=== PATIENT | female | born 1945 | race Caucasian/White ===

== ENCOUNTER 2016-03-01 13:55 | Outpatient (RCR) | payer MEDICARE ==
--- OUTSIDE RECORDS SUMMARY | 2016-01-19 13:43 | XMS REPORT | Continuity of Care Document ---
Author Author [facility] Organization [facility] Address Unknown Phone Unavailable Care Team Providers Care Java Developer Architect Name Role Phone Ace Roblero PCP [phone] Source Comments Some departments are not documenting in the electronic medical record. If you do not see the information that you expected, contact Release of Information in the Health Information Management department at [phone] for further assistance in locating additional records.[facility] Active Allergies and Adverse Reactions Allergen Noted Date Severity Reactions Comments Celebrex 10/31/2012 SEE COMMENTS Necrosis of kidneys Naprosyn 07/17/2012 SEE COMMENTS Necrosis of Kidneys Penicillin G 07/17/2012 RASH Current Medications Prescription Sig. Disp. Refills Start End Date Status Date pioglitazone (ACTOS) 45 Take 30 mg by mouth Active mg tablet daily. olmesartan(+) (BENICAR) Take 40 mg by mouth Active 40 mg tablet daily. fluticasone-salmeterol Inhale 1 Puff by mouth Active (ADVAIR DISKUS) 250-50 every 12 hours. Once in mcg inhalation disk am and once HS atorvastatin (LIPITOR) 40 Take 40 mg by mouth Active mg tablet daily. montelukast (SINGULAIR) Take 10 mg by mouth at Active 10 mg tablet bedtime daily. acetaminophen (TYLENOL) Take 1,000 mg by mouth Active 500 mg tablet every 6 hours as needed. traMADol (ULTRAM) 50 mg Take 50 mg by mouth every Active tablet 6 hours as needed. 50-100 mg ketoconazole (NIZORAL) 2 Apply to affected area 15 g 3 05/15/19 Active % topical cream twice daily. 14 ketoconazole (NIZORAL) 2 Apply to affected area 120 mL 3 05/15/19 Active % topical shampoo daily. 14 labetalol (NORMODYNE) 100 Take 100 mg by mouth Active mg tablet twice daily. metformin-ER(+) Take 1,000 mg by mouth Active (FORTAMET) 1,000 mg daily with dinner. tablet timolol XE(+) Apply 1 drop BID to edges 1 Bottle 3 01/02/20 Active (TIMOPTIC-XR) 0.5 % of wound 14 ophthalmic gel Active Problems Problem Noted Date History of melanoma 10/31/2012 Social History Tobacco Use Types Packs/Day Years Used Date Former Smoker Alcohol Use Drinks/Week oz/Week Comments No Last Filed Vital Signs Vital Sign Reading Time Taken Blood Pressure 160/62 07/17/2012 12:58 PM CDT Pulse - - Temperature - - Respiratory Rate 18 10/31/2012 1:00 PM CDT Height 1.651 m (5' 5") 01/01/2014 11:22 AM CDT Weight 146.965 kg (324 lb) 01/01/2014 11:22 AM CDT Body Mass Index 53.92 01/01/2014 11:22 AM CDT Oxygen Saturation - - Plan of Care Health Maintenance Due Date Last Done Comments Physical (Comprehensive) 1950 Exam Pertussis Vaccine 1954 Tetanus Vaccine 02/29/1960 Breast Cancer Screening 1983 Colorectal Cancer 1993 Screening Shingles Vaccine 2003 Osteoporosis Screening 02/29/2008 Prevnar/Pneumovax (#1) 02/29/2008 Influenza Vaccine 11/24/2015 Results from Last 3 Months Not on file
[2016-01-19 15:37] LABS: BASOPHILS % (AUTO) 0 % (0-10); EOSINOPHILS # (AUTO) 0.2 10^3/uL (0.0-0.3); EOSINOPHILS % (AUTO) 3 % (0-10); LYMPHOCYTES # (AUTO) 0.8 X 10^3 (1.0-4.0); LYMPHOCYTES % (AUTO) 15 % (12-44); MEAN CORPUSCULAR HEMOGLOBIN 28 PG (25-34); MEAN CORPUSCULAR HGB CONC 31 G/DL (32-36); MEAN CORPUSCULAR VOLUME 90 FL (80-99); MEAN PLATELET VOLUME 8.6 FL (7.4-10.4); MONOCYTES # (AUTO) 0.3 X 10^3 (0.0-1.0); MONOCYTES % (AUTO) 6 % (0-12); NEUTROPHILS % (AUTO) 76 % (42-75); PLATELET COUNT 184 10^3/uL (130-400); RED BLOOD COUNT 3.24 10^6/uL (4.35-5.85); RED CELL DISTRIBUTION WIDTH 14.8 % (10.0-14.5); RETICULOCYTE % 0.62 % (0.50-2.40); WHITE BLOOD COUNT 5.3 10^3/uL (4.3-11.0)
[2016-01-19 16:20] LABS: ALANINE AMINOTRANSFERASE 15 U/L (0-55); ANION GAP 4 MMOL/L (5-14); ASPARTATE AMINO TRANSFERASE 15 U/L (5-34); BILIRUBIN,TOTAL 0.4 MG/DL (0.1-1.0); BLOOD UREA NITROGEN 21 MG/DL (7-18); BUN/CREATININE RATIO 26; CALCIUM 8.7 MG/DL (8.5-10.1); CARBON DIOXIDE 26 MMOL/L (21-32); CHLORIDE 107 MMOL/L (98-107); CREATININE SERUM 0.82 MG/DL (0.60-1.30); GFR ESTIMATED > 60; GLUCOSE 107 MG/DL (70-105); LACTATE DEHYDROGENASE 219 U/L (125-220); POTASSIUM 4.4 MMOL/L (3.6-5.0); SODIUM 137 MMOL/L (135-145); TOTAL PROTEIN 6.4 G/DL (6.4-8.2)
[2016-01-19 16:41] LABS: THYROID STIMULATING HORMONE 1.71 UIU/ML (0.35-4.94)
[2016-01-19 17:04] LABS: PEP REPORT SEE PATH REPORT
[2016-01-19 17:14] LABS: %SAT TOTAL IRON BINDING CAPIC 24 % (15-50); TIBC 422 ug/dL (280-380)
[2016-01-20 06:51] LABS: FERRITIN 23 ng/mL (15-150)
[2016-01-20 06:52] LABS: UIBC 319 ug/dL (55-450)
[2016-01-21 07:29] LABS: LIGHT CHAIN KAPPA SERUM QUANT 22.42 mg/L (3.30-19.40); LIGHT CHAIN LAMBDA SERUM QUANT 11.77 mg/L (5.71-26.30)
[2016-01-25 06:41] LABS: CLIN PATHOLOGY REPORT FOOTNOTE
[2016-01-25 06:42] LABS: SERUM PROTEIN ELEC DETAIL L-16-0013798
[2016-02-24 12:34] LABS: BASOPHILS % (AUTO) 0 % (0-10); EOSINOPHILS # (AUTO) 0.2 10^3/uL (0.0-0.3); EOSINOPHILS % (AUTO) 4 % (0-10); LYMPHOCYTES # (AUTO) 0.8 X 10^3 (1.0-4.0); LYMPHOCYTES % (AUTO) 18 % (12-44); MEAN CORPUSCULAR HEMOGLOBIN 30 PG (25-34); MEAN CORPUSCULAR HGB CONC 32 G/DL (32-36); MEAN CORPUSCULAR VOLUME 93 FL (80-99); MONOCYTES # (AUTO) 0.4 X 10^3 (0.0-1.0); MONOCYTES % (AUTO) 8 % (0-12); NEUTROPHILS # (AUTO) 3.1 X 10^3 (1.8-7.8); NEUTROPHILS % (AUTO) 69 % (42-75); PLATELET COUNT 199 10^3/uL (130-400); RED BLOOD COUNT 3.35 10^6/uL (4.35-5.85); RED CELL DISTRIBUTION WIDTH 17.1 % (10.0-14.5); RETICULOCYTE % 1.55 % (0.50-2.40); WHITE BLOOD COUNT 4.5 10^3/uL (4.3-11.0)
[~2016-03-01 13:55] MED LIST: FERRIC CARBOXYMALTOSE (CANCER) 750 MG in NS (IVPB) CANCER CENTER 250 ML IV SCH
== END 2016-04-18 | disposition home or self-care (01) ==
LOC: ONC 13:55
PROVIDERS: ATTEND Internal Medicine Hematology & Oncology
DX: D64.9 Anemia, unspecified (principal); E11.9 Type 2 diabetes mellitus without complications
CPT/HCPCS: 36591; 80053; 82728; 83540; 83615; 83883; 84155; 84165; 84443; 85025; 85045; 96365; 96374; 96523; 99213; 99214

== ENCOUNTER 2016-07-31 13:57 | Outpatient (RCR) | payer MEDICARE ==
[2016-05-24 13:16] LABS: BASOPHILS % (AUTO) 0 % (0-10); EOSINOPHILS % (AUTO) 1 % (0-10); LYMPHOCYTES # (AUTO) 0.8 X 10^3 (1.0-4.0); LYMPHOCYTES % (AUTO) 19 % (12-44); MEAN CORPUSCULAR HEMOGLOBIN 31 PG (25-34); MEAN CORPUSCULAR HGB CONC 32 G/DL (32-36); MEAN CORPUSCULAR VOLUME 96 FL (80-99); MEAN PLATELET VOLUME 8.2 FL (7.4-10.4); MONOCYTES # (AUTO) 0.3 X 10^3 (0.0-1.0); MONOCYTES % (AUTO) 8 % (0-12); NEUTROPHILS # (AUTO) 3.1 X 10^3 (1.8-7.8); NEUTROPHILS % (AUTO) 73 % (42-75); PLATELET COUNT 177 10^3/uL (130-400); RED BLOOD COUNT 3.31 10^6/uL (4.35-5.85); RED CELL DISTRIBUTION WIDTH 12.8 % (10.0-14.5); WHITE BLOOD COUNT 4.3 10^3/uL (4.3-11.0)
[2016-05-24 13:55] LABS: ALANINE AMINOTRANSFERASE 9 U/L (0-55); ALBUMIN 4.1 G/DL (3.2-4.5); ANION GAP 11 MMOL/L (5-14); ASPARTATE AMINO TRANSFERASE 15 U/L (5-34); BILIRUBIN,TOTAL 0.6 MG/DL (0.1-1.0); BLOOD UREA NITROGEN 24 MG/DL (7-18); BUN/CREATININE RATIO 26; CALCIUM 9.1 MG/DL (8.5-10.1); CARBON DIOXIDE 21 MMOL/L (21-32); CHLORIDE 111 MMOL/L (98-107); CREATININE SERUM 0.91 MG/DL (0.60-1.30); GFR ESTIMATED > 60; GLUCOSE 117 MG/DL (70-105); POTASSIUM 4.6 MMOL/L (3.6-5.0); SODIUM 143 MMOL/L (135-145); TOTAL PROTEIN 6.5 G/DL (6.4-8.2)
--- OUTSIDE RECORDS SUMMARY | 2016-05-24 16:58 | XMS REPORT | Continuity of Care Document ---
Author Author [facility] Organization [facility] Address Unknown Phone Unavailable Care Team Providers Care Manager Psychology Name Role Phone Ace Roblero PCP [phone] Source Comments Some departments are not documenting in the electronic medical record. If you do not see the information that you expected, contact Release of Information in the Health Information Management department at [phone] for further assistance in locating additional records.[facility] Active Allergies and Adverse Reactions Allergen Noted [...]
[2016-05-25 05:35] LABS: LIGHT CHAIN KAPPA SERUM QUANT 23.93 mg/L (3.30-19.40); LIGHT CHAIN LAMBDA SERUM QUANT 12.31 mg/L (5.71-26.30)
[2016-05-25 08:03] LABS: FOLIC ACID 9.4 ng/mL (1.5-24.0)
[2016-08-01 13:57] LABS: HOMOCYSTEINE 16.2 umol/L (<=10.3)
[2016-08-09 09:59] LABS: METHYLMALONIC ACID 0.4 umol/L (0.00-0.40)
== END 2016-08-22 | disposition home or self-care (01) ==
LOC: ONC 13:57
PROVIDERS: ATTEND Internal Medicine Hematology & Oncology
DX: D64.9 Anemia, unspecified (principal); E11.9 Type 2 diabetes mellitus without complications
CPT/HCPCS: 36415; 80053; 82607; 82728; 82746; 83090; 83883; 83921; 85025; 99213

== ENCOUNTER → 2016-07-31 | Outpatient (CLI) | payer MEDICARE ==
[2016-07-31 15:17] LABS: ALBUMIN 4.3 G/DL (3.2-4.5); BILIRUBIN,TOTAL 0.7 MG/DL (0.1-1.0); CALCIUM 9.4 MG/DL (8.5-10.1); CREATININE SERUM 0.94 MG/DL (0.60-1.30); POTASSIUM 4.1 MMOL/L (3.6-5.0); TOTAL PROTEIN 6.7 G/DL (6.4-8.2)
[2016-08-01 08:39] LABS: VITAMIN D 25-HYDROXY (TOTAL) 27 ng/mL (30-100)
== END ==
LOC: LAB 14:28
PROVIDERS: ATTEND Internal Medicine
DX: E78.5 Hyperlipidemia, unspecified (principal); E11.9 Type 2 diabetes mellitus without complications; E55.9 Vitamin D deficiency, unspecified; Z11.59 Encounter for screening for other viral diseases
CPT/HCPCS: 36415; 80053; 80061; 82306; 83036; 86803

== ENCOUNTER 2016-11-20 14:02 | Outpatient (RCR) | payer MEDICARE ==
[2016-08-27 14:30] LABS: BASOPHILS % (AUTO) 0 % (0-10); EOSINOPHILS # (AUTO) 0.1 10^3/uL (0.0-0.3); EOSINOPHILS % (AUTO) 1 % (0-10); LYMPHOCYTES # (AUTO) 0.9 X 10^3 (1.0-4.0); LYMPHOCYTES % (AUTO) 24 % (12-44); MEAN CORPUSCULAR HEMOGLOBIN 31 PG (25-34); MEAN CORPUSCULAR HGB CONC 31 G/DL (32-36); MEAN CORPUSCULAR VOLUME 97 FL (80-99); MONOCYTES # (AUTO) 0.3 X 10^3 (0.0-1.0); MONOCYTES % (AUTO) 8 % (0-12); NEUTROPHILS # (AUTO) 2.4 X 10^3 (1.8-7.8); NEUTROPHILS % (AUTO) 66 % (42-75); PLATELET COUNT 173 10^3/uL (130-400); RED BLOOD COUNT 3.38 10^6/uL (4.35-5.85); RED CELL DISTRIBUTION WIDTH 12.8 % (10.0-14.5); RETICULOCYTE % 0.99 % (0.50-2.40); WHITE BLOOD COUNT 3.6 10^3/uL (4.3-11.0)
[2016-08-27 14:50] LABS: ALANINE AMINOTRANSFERASE 8 U/L (0-55); ALBUMIN 4.3 G/DL (3.2-4.5); ANION GAP 10 MMOL/L (5-14); ASPARTATE AMINO TRANSFERASE 12 U/L (5-34); BILIRUBIN,TOTAL 0.5 MG/DL (0.1-1.0); BLOOD UREA NITROGEN 20 MG/DL (7-18); BUN/CREATININE RATIO 25; CALCIUM 9.2 MG/DL (8.5-10.1); CARBON DIOXIDE 23 MMOL/L (21-32); CHLORIDE 109 MMOL/L (98-107); CREATININE SERUM 0.81 MG/DL (0.60-1.30); GFR ESTIMATED > 60; GLUCOSE 103 MG/DL (70-105); POTASSIUM 4.6 MMOL/L (3.6-5.0); SODIUM 142 MMOL/L (135-145); TOTAL PROTEIN 6.9 G/DL (6.4-8.2)
[2016-11-20 14:35] LABS: PEP REPORT SEE PATH REPORT
[2016-11-20 14:37] LABS: BASOPHILS % (AUTO) 0 % (0-10); EOSINOPHILS # (AUTO) 0.1 10^3/uL (0.0-0.3); EOSINOPHILS % (AUTO) 2 % (0-10); LYMPHOCYTES # (AUTO) 0.9 X 10^3 (1.0-4.0); LYMPHOCYTES % (AUTO) 19 % (12-44); MEAN CORPUSCULAR HEMOGLOBIN 30 PG (25-34); MEAN CORPUSCULAR HGB CONC 31 G/DL (32-36); MEAN CORPUSCULAR VOLUME 96 FL (80-99); MEAN PLATELET VOLUME 8.6 FL (7.4-10.4); MONOCYTES # (AUTO) 0.4 X 10^3 (0.0-1.0); MONOCYTES % (AUTO) 9 % (0-12); NEUTROPHILS # (AUTO) 3.2 X 10^3 (1.8-7.8); NEUTROPHILS % (AUTO) 70 % (42-75); PLATELET COUNT 189 10^3/uL (130-400); RED BLOOD COUNT 3.34 10^6/uL (4.35-5.85); RED CELL DISTRIBUTION WIDTH 12.6 % (10.0-14.5); WHITE BLOOD COUNT 4.5 10^3/uL (4.3-11.0)
[2016-11-20 15:05] LABS: ALANINE AMINOTRANSFERASE 7 U/L (0-55); ALBUMIN 4.1 GM/DL (3.2-4.5); ANION GAP 5 MMOL/L (5-14); ASPARTATE AMINO TRANSFERASE 14 U/L (5-34); BILIRUBIN,TOTAL 0.5 MG/DL (0.1-1.0); BLOOD UREA NITROGEN 21 MG/DL (7-18); BUN/CREATININE RATIO 25; CALCIUM 9.2 MG/DL (8.5-10.1); CARBON DIOXIDE 28 MMOL/L (21-32); CHLORIDE 106 MMOL/L (98-107); CREATININE SERUM 0.85 MG/DL (0.60-1.30); GFR ESTIMATED > 60; GLUCOSE 94 MG/DL (70-105); SODIUM 139 MMOL/L (135-145); TOTAL PROTEIN 6.7 GM/DL (6.4-8.2)
[2016-11-21 03:32] LABS: LIGHT CHAIN KAPPA SERUM QUANT 25.02 mg/L (3.30-19.40); LIGHT CHAIN LAMBDA SERUM QUANT 13.66 mg/L (5.71-26.30)
[2016-11-21 06:36] LABS: HOMOCYSTEINE 16.3 umol/L (<=10.3)
[2016-11-22 11:14] LABS: CLIN PATHOLOGY REPORT FOOTNOTE; SERUM PROTEIN ELEC DETAIL L-17-0011398
== END 2016-11-23 15:53 | disposition home or self-care (01) ==
LOC: ONC 14:02
PROVIDERS: ATTEND Internal Medicine Hematology & Oncology
DX: D50.9 Iron deficiency anemia, unspecified (principal); Z85.820 Personal history of malignant melanoma of skin; E11.9 Type 2 diabetes mellitus without complications; I10 Essential (primary) hypertension; E78.2 Mixed hyperlipidemia; R60.0 Localized edema; Z82.49 Family history of ischemic heart disease and other diseases of the circulatory system; Z79.84 Long term (current) use of oral hypoglycemic drugs; Z79.899 Other long term (current) drug therapy
CPT/HCPCS: 36415; 80053; 82728; 83090; 83883; 84155; 84165; 85025; 85045; 99213

== ENCOUNTER → 2016-11-20 | Outpatient (CLI) | payer MEDICARE | LOC: LABNPT 14:25 | PROVIDERS: ATTEND Internal Medicine | DX: E11.9 Type 2 diabetes mellitus without complications (principal) | CPT/HCPCS: 83036 ==

== ENCOUNTER 2016-12-05 14:06 | Outpatient (RCR) | payer MEDICARE | END 2016-12-22 | disposition home or self-care (01) | LOC: ONC 14:06 | PROVIDERS: ATTEND Internal Medicine Hematology & Oncology | DX: E11.9 Type 2 diabetes mellitus without complications; Z79.84 Long term (current) use of oral hypoglycemic drugs; D50.9 Iron deficiency anemia, unspecified; R60.0 Localized edema; Z79.899 Other long term (current) drug therapy; Z82.49 Family history of ischemic heart disease and other diseases of the circulatory system; E78.2 Mixed hyperlipidemia; Z85.820 Personal history of malignant melanoma of skin; I10 Essential (primary) hypertension | CPT/HCPCS: 99213 ==

== ENCOUNTER → 2017-03-27 | Outpatient (CLI) | payer MEDICARE | LOC: LAB 13:01 | PROVIDERS: ATTEND Internal Medicine | DX: E11.9 Type 2 diabetes mellitus without complications (principal); I10 Essential (primary) hypertension | CPT/HCPCS: 36415; 83036 ==

== ENCOUNTER 2017-04-09 13:53 | Outpatient (RCR) | payer MEDICARE ==
[2017-03-27 10:11] LABS: BASOPHILS % (AUTO) 0 % (0-10); EOSINOPHILS # (AUTO) 0.1 10^3/uL (0.0-0.3); EOSINOPHILS % (AUTO) 2 % (0-10); HEMATOCRIT 30 % (35-52); HEMOGLOBIN 9.3 G/DL (11.5-16.0); LYMPHOCYTES % (AUTO) 21 % (12-44); MEAN CORPUSCULAR HEMOGLOBIN 31 PG (25-34); MEAN CORPUSCULAR HGB CONC 31 G/DL (32-36); MEAN CORPUSCULAR VOLUME 98 FL (80-99); MEAN PLATELET VOLUME 8.9 FL (7.4-10.4); MONOCYTES # (AUTO) 0.3 X 10^3 (0.0-1.0); MONOCYTES % (AUTO) 6 % (0-12); NEUTROPHILS # (AUTO) 3.4 X 10^3 (1.8-7.8); NEUTROPHILS % (AUTO) 71 % (42-75); PLATELET COUNT 197 10^3/uL (130-400); RED BLOOD COUNT 3.04 10^6/uL (4.35-5.85); WHITE BLOOD COUNT 4.8 10^3/uL (4.3-11.0)
[2017-03-27 10:35] LABS: ALANINE AMINOTRANSFERASE 8 U/L (0-55); ALBUMIN 4.2 GM/DL (3.2-4.5); ALKALINE PHOSPHATASE 65 U/L (40-136); BILIRUBIN,TOTAL 0.5 MG/DL (0.1-1.0); BUN/CREATININE RATIO 32; CALCIUM 9.3 MG/DL (8.5-10.1); CARBON DIOXIDE 23 MMOL/L (21-32); CHLORIDE 110 MMOL/L (98-107); CREATININE SERUM 0.87 MG/DL (0.60-1.30); GFR ESTIMATED > 60; GLUCOSE 104 MG/DL (70-105); POTASSIUM 4.7 MMOL/L (3.6-5.0); SODIUM 142 MMOL/L (135-145); TOTAL PROTEIN 6.9 GM/DL (6.4-8.2)
== END 2017-06-25 | disposition home or self-care (01) ==
LOC: ONC 13:53
PROVIDERS: ATTEND Internal Medicine Hematology & Oncology
DX: D50.9 Iron deficiency anemia, unspecified (principal); Z85.820 Personal history of malignant melanoma of skin; E11.9 Type 2 diabetes mellitus without complications; I10 Essential (primary) hypertension; E78.2 Mixed hyperlipidemia; R60.0 Localized edema; Z82.49 Family history of ischemic heart disease and other diseases of the circulatory system; Z79.84 Long term (current) use of oral hypoglycemic drugs; Z79.899 Other long term (current) drug therapy
CPT/HCPCS: 80053; 82728; 83883; 84155; 84165; 84443; 85025; 96365

== ENCOUNTER 2017-06-26 14:06 | Outpatient (RCR) | payer MEDICARE ==
[2017-06-26 14:46] LABS: ABSOLUTE RETIC # 49 10e9/L (24-90); BASOPHILS % (AUTO) 0 % (0-10); EOSINOPHILS # (AUTO) 0.1 10^3/uL (0.0-0.3); EOSINOPHILS % (AUTO) 2 % (0-10); HEMATOCRIT 27 % (35-52); HEMOGLOBIN 8.7 G/DL (11.5-16.0); LYMPHOCYTES # (AUTO) 0.9 X 10^3 (1.0-4.0); LYMPHOCYTES % (AUTO) 15 % (12-44); MEAN CORPUSCULAR HEMOGLOBIN 30 PG (25-34); MEAN CORPUSCULAR HGB CONC 32 G/DL (32-36); MEAN CORPUSCULAR VOLUME 95 FL (80-99); MEAN PLATELET VOLUME 8.4 FL (7.4-10.4); MONOCYTES # (AUTO) 0.5 X 10^3 (0.0-1.0); MONOCYTES % (AUTO) 8 % (0-12); NEUTROPHILS # (AUTO) 4.6 X 10^3 (1.8-7.8); NEUTROPHILS % (AUTO) 75 % (42-75); PLATELET COUNT 226 10^3/uL (130-400); RED BLOOD COUNT 2.88 10^6/uL (4.35-5.85); RED CELL DISTRIBUTION WIDTH 13.1 % (10.0-14.5); WHITE BLOOD COUNT 6.2 10^3/uL (4.3-11.0)
[2017-06-26 15:02] LABS: ALANINE AMINOTRANSFERASE 10 U/L (0-55); ALBUMIN 3.7 GM/DL (3.2-4.5); ALKALINE PHOSPHATASE 88 U/L (40-136); BILIRUBIN,TOTAL 0.4 MG/DL (0.1-1.0); BUN/CREATININE RATIO 12; CALCIUM 8.8 MG/DL (8.5-10.1); CARBON DIOXIDE 22 MMOL/L (21-32); CHLORIDE 107 MMOL/L (98-107); GFR ESTIMATED > 60; GLUCOSE 117 MG/DL (70-105); POTASSIUM 3.8 MMOL/L (3.6-5.0); SODIUM 139 MMOL/L (135-145); TOTAL PROTEIN 6.3 GM/DL (6.4-8.2)
== END 2017-07-03 09:37 | disposition home or self-care (01) ==
LOC: ONC 14:06
PROVIDERS: ATTEND Internal Medicine Hematology & Oncology
DX: D50.9 Iron deficiency anemia, unspecified (principal); Z85.820 Personal history of malignant melanoma of skin; E11.9 Type 2 diabetes mellitus without complications; I10 Essential (primary) hypertension; E78.2 Mixed hyperlipidemia; R60.0 Localized edema; Z82.49 Family history of ischemic heart disease and other diseases of the circulatory system; Z79.84 Long term (current) use of oral hypoglycemic drugs; Z79.899 Other long term (current) drug therapy
CPT/HCPCS: 36415; 80053; 82728; 83883; 84155; 84165; 85025; 85045

== ENCOUNTER 2017-09-24 13:11 | Outpatient (RCR) | payer MEDICARE ==
[2017-09-24 13:38] LABS: ABSOLUTE RETIC # 53 10e9/L (24-90); BASOPHILS % (AUTO) 0 % (0-10); EOSINOPHILS # (AUTO) 0.1 10^3/uL (0.0-0.3); EOSINOPHILS % (AUTO) 1 % (0-10); HEMATOCRIT 26 % (35-52); HEMOGLOBIN 8.1 G/DL (11.5-16.0); LYMPHOCYTES # (AUTO) 0.8 X 10^3 (1.0-4.0); LYMPHOCYTES % (AUTO) 10 % (12-44); MEAN CORPUSCULAR HEMOGLOBIN 28 PG (25-34); MEAN CORPUSCULAR HGB CONC 31 G/DL (32-36); MEAN CORPUSCULAR VOLUME 92 FL (80-99); MEAN PLATELET VOLUME 8.2 FL (7.4-10.4); MONOCYTES # (AUTO) 0.6 X 10^3 (0.0-1.0); MONOCYTES % (AUTO) 7 % (0-12); NEUTROPHILS # (AUTO) 6.7 X 10^3 (1.8-7.8); NEUTROPHILS % (AUTO) 83 % (42-75); PLATELET COUNT 315 10^3/uL (130-400); RED BLOOD COUNT 2.85 10^6/uL (4.35-5.85); RED CELL DISTRIBUTION WIDTH 14.5 % (10.0-14.5); RETICULOCYTE % 1.87 % (0.50-2.40); WHITE BLOOD COUNT 8.1 10^3/uL (4.3-11.0)
[2017-09-30 10:00] LABS: ALBUMIN 3.6 GM/DL (3.2-4.5); BILIRUBIN,TOTAL 0.3 MG/DL (0.1-1.0); CREATININE SERUM 1.16 MG/DL (0.60-1.30); TOTAL PROTEIN 6.7 GM/DL (6.4-8.2)
== END 2017-10-01 | disposition home or self-care (01) ==
LOC: ONC 13:11
PROVIDERS: ATTEND Internal Medicine Hematology & Oncology
DX: D50.9 Iron deficiency anemia, unspecified (principal); Z85.820 Personal history of malignant melanoma of skin; E11.9 Type 2 diabetes mellitus without complications; I10 Essential (primary) hypertension; E78.2 Mixed hyperlipidemia; R60.0 Localized edema; Z82.49 Family history of ischemic heart disease and other diseases of the circulatory system; Z79.84 Long term (current) use of oral hypoglycemic drugs; Z79.899 Other long term (current) drug therapy
CPT/HCPCS: 36415; 80053; 82728; 83883; 84155; 84165; 85025; 85045; 99213

== ENCOUNTER → 2017-10-09 | Outpatient (CLI) | payer MEDICARE | LOC: LAB 14:16 | PROVIDERS: ATTEND Internal Medicine | DX: E11.65 Type 2 diabetes mellitus with hyperglycemia (principal) | CPT/HCPCS: 36415; 83036 ==

== ENCOUNTER → 2017-10-17 | Outpatient (CLI) | payer MEDICARE | LOC: LAB 09:42 | PROVIDERS: ATTEND Internal Medicine | DX: Z53.9 Procedure and treatment not carried out, unspecified reason (principal) ==

== ENCOUNTER 2017-12-04 13:41 | Outpatient (RCR) | payer MEDICARE ==
[2017-10-09 13:45] LABS: BASOPHILS % (AUTO) 0 % (0-10); EOSINOPHILS % (AUTO) 1 % (0-10); HEMATOCRIT 26 % (35-52); HEMOGLOBIN 7.9 G/DL (11.5-16.0); LYMPHOCYTES # (AUTO) 0.7 X 10^3 (1.0-4.0); LYMPHOCYTES % (AUTO) 9 % (12-44); MEAN CORPUSCULAR HEMOGLOBIN 28 PG (25-34); MEAN CORPUSCULAR HGB CONC 31 G/DL (32-36); MEAN CORPUSCULAR VOLUME 92 FL (80-99); MEAN PLATELET VOLUME 8.2 FL (7.4-10.4); MONOCYTES # (AUTO) 0.6 X 10^3 (0.0-1.0); MONOCYTES % (AUTO) 8 % (0-12); NEUTROPHILS # (AUTO) 6.7 X 10^3 (1.8-7.8); NEUTROPHILS % (AUTO) 83 % (42-75); PLATELET COUNT 302 10^3/uL (130-400); RED BLOOD COUNT 2.79 10^6/uL (4.35-5.85); RED CELL DISTRIBUTION WIDTH 14.9 % (10.0-14.5); WHITE BLOOD COUNT 8.1 10^3/uL (4.3-11.0)
[2017-10-16 13:43] LABS: BASOPHILS % (AUTO) 0 % (0-10); EOSINOPHILS % (AUTO) 0 % (0-10); HEMATOCRIT 24 % (35-52); HEMOGLOBIN 7.4 G/DL (11.5-16.0); LYMPHOCYTES # (AUTO) 0.6 X 10^3 (1.0-4.0); LYMPHOCYTES % (AUTO) 7 % (12-44); MEAN CORPUSCULAR HEMOGLOBIN 29 PG (25-34); MEAN CORPUSCULAR HGB CONC 31 G/DL (32-36); MEAN CORPUSCULAR VOLUME 93 FL (80-99); MEAN PLATELET VOLUME 8.4 FL (7.4-10.4); MONOCYTES # (AUTO) 0.7 X 10^3 (0.0-1.0); MONOCYTES % (AUTO) 7 % (0-12); NEUTROPHILS # (AUTO) 8.5 X 10^3 (1.8-7.8); NEUTROPHILS % (AUTO) 86 % (42-75); PLATELET COUNT 243 10^3/uL (130-400); RED BLOOD COUNT 2.59 10^6/uL (4.35-5.85); RED CELL DISTRIBUTION WIDTH 15.5 % (10.0-14.5); WHITE BLOOD COUNT 9.9 10^3/uL (4.3-11.0)
[2017-10-16 13:53] LABS: RETICULOCYTE % 1.83 % (0.50-2.40)
[2017-10-16 13:54] LABS: RED BLOOD COUNT 2.59 10^6/uL (4.35-5.85)
[2017-10-23 13:33] LABS: RED BLOOD COUNT 2.73 10^6/uL (4.35-5.85); WHITE BLOOD COUNT 8.2 10^3/uL (4.3-11.0)
[2017-10-23 13:34] LABS: BASOPHILS % (AUTO) 0 % (0-10); EOSINOPHILS # (AUTO) 0.1 10^3/uL (0.0-0.3); EOSINOPHILS % (AUTO) 1 % (0-10); HEMATOCRIT 26 % (35-52); LYMPHOCYTES # (AUTO) 0.8 X 10^3 (1.0-4.0); LYMPHOCYTES % (AUTO) 10 % (12-44); MEAN CORPUSCULAR HEMOGLOBIN 29 PG (25-34); MEAN CORPUSCULAR HGB CONC 31 G/DL (32-36); MEAN CORPUSCULAR VOLUME 93 FL (80-99); MEAN PLATELET VOLUME 8.5 FL (7.4-10.4); MONOCYTES # (AUTO) 0.7 X 10^3 (0.0-1.0); MONOCYTES % (AUTO) 9 % (0-12); NEUTROPHILS # (AUTO) 6.6 X 10^3 (1.8-7.8); NEUTROPHILS % (AUTO) 80 % (42-75); PLATELET COUNT 306 10^3/uL (130-400); RED CELL DISTRIBUTION WIDTH 15.6 % (10.0-14.5)
[2017-10-31 13:41] LABS: BASOPHILS % (AUTO) 0 % (0-10); EOSINOPHILS # (AUTO) 0.1 10^3/uL (0.0-0.3); EOSINOPHILS % (AUTO) 1 % (0-10); HEMATOCRIT 25 % (35-52); HEMOGLOBIN 7.8 G/DL (11.5-16.0); LYMPHOCYTES # (AUTO) 0.8 X 10^3 (1.0-4.0); LYMPHOCYTES % (AUTO) 10 % (12-44); MEAN CORPUSCULAR HEMOGLOBIN 29 PG (25-34); MEAN CORPUSCULAR HGB CONC 31 G/DL (32-36); MEAN CORPUSCULAR VOLUME 93 FL (80-99); MEAN PLATELET VOLUME 8.1 FL (7.4-10.4); MONOCYTES # (AUTO) 0.5 X 10^3 (0.0-1.0); MONOCYTES % (AUTO) 7 % (0-12); NEUTROPHILS # (AUTO) 6.6 X 10^3 (1.8-7.8); NEUTROPHILS % (AUTO) 83 % (42-75); PLATELET COUNT 281 10^3/uL (130-400); RED BLOOD COUNT 2.69 10^6/uL (4.35-5.85); RED CELL DISTRIBUTION WIDTH 15.9 % (10.0-14.5); WHITE BLOOD COUNT 7.9 10^3/uL (4.3-11.0)
[2017-11-06 14:32] LABS: ABSOLUTE RETIC # 68 10e9/L (24-90); BASOPHILS % (AUTO) 0 % (0-10); EOSINOPHILS % (AUTO) 0 % (0-10); HEMATOCRIT 26 % (35-52); LYMPHOCYTES # (AUTO) 0.7 X 10^3 (1.0-4.0); LYMPHOCYTES % (AUTO) 9 % (12-44); MEAN CORPUSCULAR HEMOGLOBIN 28 PG (25-34); MEAN CORPUSCULAR HGB CONC 30 G/DL (32-36); MEAN CORPUSCULAR VOLUME 93 FL (80-99); MEAN PLATELET VOLUME 8.1 FL (7.4-10.4); MONOCYTES # (AUTO) 0.7 X 10^3 (0.0-1.0); MONOCYTES % (AUTO) 8 % (0-12); NEUTROPHILS # (AUTO) 6.5 X 10^3 (1.8-7.8); NEUTROPHILS % (AUTO) 82 % (42-75); PLATELET COUNT 266 10^3/uL (130-400); RED BLOOD COUNT 2.84 10^6/uL (4.35-5.85); RED CELL DISTRIBUTION WIDTH 16.1 % (10.0-14.5); RETICULOCYTE % 2.39 % (0.50-2.40); WHITE BLOOD COUNT 7.9 10^3/uL (4.3-11.0)
[2017-11-06 14:50] LABS: ALBUMIN 3.1 GM/DL (3.2-4.5); BILIRUBIN,TOTAL 0.5 MG/DL (0.1-1.0); CALCIUM 8.4 MG/DL (8.5-10.1); CREATININE SERUM 1.08 MG/DL (0.60-1.30); POTASSIUM 3.7 MMOL/L (3.6-5.0); TOTAL PROTEIN 5.7 GM/DL (6.4-8.2)
[2017-11-13 14:25] LABS: BASOPHILS % (AUTO) 0 % (0-10); EOSINOPHILS # (AUTO) 0.1 10^3/uL (0.0-0.3); EOSINOPHILS % (AUTO) 1 % (0-10); HEMATOCRIT 26 % (35-52); HEMOGLOBIN 8.4 G/DL (11.5-16.0); LYMPHOCYTES # (AUTO) 0.7 X 10^3 (1.0-4.0); LYMPHOCYTES % (AUTO) 10 % (12-44); MEAN CORPUSCULAR HEMOGLOBIN 30 PG (25-34); MEAN CORPUSCULAR HGB CONC 32 G/DL (32-36); MEAN CORPUSCULAR VOLUME 93 FL (80-99); MEAN PLATELET VOLUME 8.2 FL (7.4-10.4); MONOCYTES # (AUTO) 0.5 X 10^3 (0.0-1.0); MONOCYTES % (AUTO) 7 % (0-12); NEUTROPHILS % (AUTO) 82 % (42-75); PLATELET COUNT 242 10^3/uL (130-400); RED BLOOD COUNT 2.84 10^6/uL (4.35-5.85); RED CELL DISTRIBUTION WIDTH 15.6 % (10.0-14.5); WHITE BLOOD COUNT 7.3 10^3/uL (4.3-11.0)
[2017-11-20 13:54] LABS: BASOPHILS % (AUTO) 0 % (0-10); EOSINOPHILS # (AUTO) 0.1 10^3/uL (0.0-0.3); EOSINOPHILS % (AUTO) 1 % (0-10); HEMATOCRIT 30 % (35-52); HEMOGLOBIN 9.5 G/DL (11.5-16.0); LYMPHOCYTES # (AUTO) 0.7 X 10^3 (1.0-4.0); LYMPHOCYTES % (AUTO) 8 % (12-44); MEAN CORPUSCULAR HEMOGLOBIN 29 PG (25-34); MEAN CORPUSCULAR HGB CONC 32 G/DL (32-36); MEAN CORPUSCULAR VOLUME 92 FL (80-99); MEAN PLATELET VOLUME 8.1 FL (7.4-10.4); MONOCYTES # (AUTO) 0.7 X 10^3 (0.0-1.0); MONOCYTES % (AUTO) 9 % (0-12); NEUTROPHILS # (AUTO) 6.5 X 10^3 (1.8-7.8); NEUTROPHILS % (AUTO) 83 % (42-75); PLATELET COUNT 274 10^3/uL (130-400); RED BLOOD COUNT 3.28 10^6/uL (4.35-5.85); RED CELL DISTRIBUTION WIDTH 15.5 % (10.0-14.5); WHITE BLOOD COUNT 7.8 10^3/uL (4.3-11.0)
[2017-11-27 13:48] LABS: BASOPHILS % (AUTO) 0 % (0-10); EOSINOPHILS # (AUTO) 0.1 10^3/uL (0.0-0.3); EOSINOPHILS % (AUTO) 1 % (0-10); HEMATOCRIT 29 % (35-52); HEMOGLOBIN 9.3 G/DL (11.5-16.0); LYMPHOCYTES # (AUTO) 0.7 X 10^3 (1.0-4.0); LYMPHOCYTES % (AUTO) 9 % (12-44); MEAN CORPUSCULAR HEMOGLOBIN 29 PG (25-34); MEAN CORPUSCULAR HGB CONC 32 G/DL (32-36); MEAN CORPUSCULAR VOLUME 92 FL (80-99); MONOCYTES # (AUTO) 0.7 X 10^3 (0.0-1.0); MONOCYTES % (AUTO) 9 % (0-12); NEUTROPHILS # (AUTO) 6.3 X 10^3 (1.8-7.8); NEUTROPHILS % (AUTO) 81 % (42-75); PLATELET COUNT 265 10^3/uL (130-400); RED BLOOD COUNT 3.19 10^6/uL (4.35-5.85); RED CELL DISTRIBUTION WIDTH 15.7 % (10.0-14.5); WHITE BLOOD COUNT 7.8 10^3/uL (4.3-11.0)
[~2017-12-04 13:41] MED LIST changes: +DARBEPOETIN 10 MCG/0.4 ML ARANESP IJ SCH; +DARBEPOETIN 25 MCG/ML (CANCER CTR) 1 ML VIAL SC SCH; +DARBEPOETIN 40 MCG/ML (ARANESP) 1 ML VIAL SC SCH; -FERRIC CARBOXYMALTOSE (CANCER) 750 MG in NS (IVPB) CANCER CENTER 250 ML IV SCH
[2017-12-04 14:03] LABS: BASOPHILS % (AUTO) 0 % (0-10); EOSINOPHILS # (AUTO) 0.1 10^3/uL (0.0-0.3); EOSINOPHILS % (AUTO) 1 % (0-10); HEMATOCRIT 30 % (35-52); HEMOGLOBIN 9.5 G/DL (11.5-16.0); LYMPHOCYTES # (AUTO) 0.7 X 10^3 (1.0-4.0); LYMPHOCYTES % (AUTO) 6 % (12-44); MEAN CORPUSCULAR HEMOGLOBIN 29 PG (25-34); MEAN CORPUSCULAR HGB CONC 32 G/DL (32-36); MEAN CORPUSCULAR VOLUME 92 FL (80-99); MEAN PLATELET VOLUME 8.3 FL (7.4-10.4); MONOCYTES # (AUTO) 0.8 X 10^3 (0.0-1.0); MONOCYTES % (AUTO) 8 % (0-12); NEUTROPHILS # (AUTO) 8.7 X 10^3 (1.8-7.8); NEUTROPHILS % (AUTO) 85 % (42-75); PLATELET COUNT 290 10^3/uL (130-400); RED BLOOD COUNT 3.26 10^6/uL (4.35-5.85); RED CELL DISTRIBUTION WIDTH 15.6 % (10.0-14.5); WHITE BLOOD COUNT 10.2 10^3/uL (4.3-11.0)
[2017-12-05] MEDS ORDERED: ACET-2267 PO ×2 (14:03)
[2017-12-05] MEDS ORDERED: POTA10TA10 PO ×2 (14:03)
[2017-12-05] MEDS ORDERED: FURO40TA4 PO ×2 (14:03)
[2017-12-05] MEDS ORDERED: FOLI1TAB24 PO ×2 (14:03)
[2017-12-05] MEDS ORDERED: CHOL20003 PO ×2 (14:03)
[2017-12-05] MEDS ORDERED: ATOR40TA70 PO ×2 (14:03)
[2017-12-05] MEDS ORDERED: PIOG30TA71 PO ×2 (14:03)
[2017-12-05] MEDS ORDERED: ALBU18HF2 INH ×2 (14:03)
[2017-12-05] MEDS ORDERED: FLUT1DIS26 INH ×2 (14:03)
[2017-12-05] MEDS ORDERED: ASCO-262 PO ×2 (14:03)
[2017-12-05] MEDS ORDERED: OLME40TA18 PO ×2 (14:03)
[2017-12-05] MEDS ORDERED: MONT10TA24 PO ×2 (14:03)
[2017-12-05] MEDS ORDERED: METF-399 PO ×2 (14:03)
[2017-12-05] MEDS ORDERED: CYAN100T PO ×2 (14:03)
[2017-12-05] MEDS ORDERED: TRAM50TA2 PO (14:03)
[2017-12-19] MEDS ORDERED: RT-ADVAIR HFA 115/21 MCG PER PUFF IH ONE (04:31)
[2017-12-20] MEDS ORDERED: RT-ADVAIR HFA 115/21 MCG PER PUFF IH ONE (18:45)
[2017-12-24] MEDS ORDERED: METO-387 PO ×2 (07:38)
[2017-12-24] MEDS ORDERED: TRAM50TA2 PO ×2 (07:38)
[2017-12-24] MEDS ORDERED: CALC600T80 PO ×2 (07:38)
[2017-12-24] MEDS ORDERED: FURO-125 PO ×2 (12:27)
[2017-12-25 13:51] LABS: BASOPHILS % (AUTO) 0 % (0-10); EOSINOPHILS # (AUTO) 0.2 10^3/uL (0.0-0.3); EOSINOPHILS % (AUTO) 2 % (0-10); HEMATOCRIT 29 % (35-52); HEMOGLOBIN 8.9 G/DL (11.5-16.0); LYMPHOCYTES % (AUTO) 14 % (12-44); MEAN CORPUSCULAR HEMOGLOBIN 29 PG (25-34); MEAN CORPUSCULAR HGB CONC 31 G/DL (32-36); MEAN CORPUSCULAR VOLUME 96 FL (80-99); MEAN PLATELET VOLUME 8.5 FL (7.4-10.4); MONOCYTES # (AUTO) 0.6 X 10^3 (0.0-1.0); MONOCYTES % (AUTO) 8 % (0-12); NEUTROPHILS # (AUTO) 5.2 X 10^3 (1.8-7.8); NEUTROPHILS % (AUTO) 75 % (42-75); PLATELET COUNT 387 10^3/uL (130-400); RED BLOOD COUNT 3.03 10^6/uL (4.35-5.85); RED CELL DISTRIBUTION WIDTH 17.5 % (10.0-14.5)
== END 2017-12-25 13:38 | disposition home or self-care (01) ==
LOC: ONC 13:41
PROVIDERS: ATTEND Internal Medicine Hematology & Oncology
DX: D50.9 Iron deficiency anemia, unspecified (principal); D63.1 Anemia in chronic kidney disease; N18.3 Chronic kidney disease, stage 3 (moderate); Z85.820 Personal history of malignant melanoma of skin; E11.9 Type 2 diabetes mellitus without complications; I10 Essential (primary) hypertension; E78.2 Mixed hyperlipidemia; R60.0 Localized edema; Z82.49 Family history of ischemic heart disease and other diseases of the circulatory system; Z79.84 Long term (current) use of oral hypoglycemic drugs; Z79.899 Other long term (current) drug therapy
CPT/HCPCS: 36415; 80053; 82728; 85025; 85045; 96372

== ENCOUNTER 2017-12-05 12:15 | Inpatient (IN) | payer MEDICARE ==
[~2017-12-05] VITALS: Ht 167.6 cm; Wt 133.9 kg
[2017-12-05 11:30] VITALS: BP 103/66
--- NOTE | 2017-12-05 12:15 | Physical Therapy Evaluation ---
PT Evaluation-General Medical Diagnosis Admission Date Medical Diagnosis: debility, difficulty with walking Onset Date: Dec 05, 2017 Therapy Diagnosis Therapy Diagnosis: debility, impaired strength, mobility, and endurance Height/Weight Height (Feet): 5 Height (Inches): 5.00 Weight (Pounds): 324 Weight (Ounces): 0.0 Weight Bear Status Right Lower Extremity: Right Full Weight Bearing Left Lower Extremity: Left Full Weight Bearing Referral Physician: Atilio Reason for Referral: Evaluation/Treatment Medical History Pertinent Medical History: DM, HTN Additional Medical History Hyperlipidemia. Wounds on bilat LEs. Anemia under tx with Dr Troncoso Current History Pt admitted from home at 10:50 due to 1 month decline in ability to take care of herself Reviewed History: Yes Social History Home: Single Level Current Living Status: Alone Entry Into Home: Ramp Prior/Core FIM Prior Level of Function Functional [place] Measure 0=Not Assessed/NA 4=Minimal Assistance 1=Total Assistance 5=Supervision or Setup 2=Maximal Assistance 6=Modified [place] 3=Moderate Assistance 7=Complete [place] Bed Mobility: 6 Transfers (B,C,W/C) (FIM): 6 Gait: 6 PT Evaluation-Current Subjective pt in w/c pre tx, agrees to PT, no pain to report, OT in room to co-treat Pt/Family Goals to be independent at home Objective Patient Orientation: Person, Place, Time ROM/Strength ROM Lower Extremities WFL Strenght Lower Extremities RLE (hip flexion 4/5, knee ext. 4/5, knee flexion 3+/5, plantarflexion 5/5, dorsiflexion 4/5) LLE (hip flexion 4/5, knee ext. 3+/5, knee flexion 3/5, plantarflexion 4/5, dorsiflexion 4/5) Integumentary/Posture Integumentary pt has dressings on both calves for clear venous drainage, skin is hard and edematous bilateral LEs Neuromuscular (Tone, Coordination, Reflexes) NT Sensory Vision: Wears Glasses Hearing: Functional Sensation Right Lower Extremit: Intact Sensation Left Lower Extremity: Intact Transfers Functional [place] Measure 0=Not Assessed/NA 4=Minimal Assistance 1=Total Assistance 5=Supervision or Setup 2=Maximal Assistance 6=Modified [place] 3=Moderate Assistance 7=Complete IndependenceIRFPAI Quality Coding Scale 6 Independent with activity with or without an assistive device 5 Patient requires set up or clean up by helper. Patient completes activity by themselves 4 Supervision or touching assist (CGA). [place] provide cues , steadying assist 3 The helper provides less than half the effort to complete the activity 2 The helper provides more than half the effort to complete the activity 1 Dependent. The helper does all the effort to complete an activity 7 Patient refused to complete or attempt activity 9 The patient did not perform the activity before the current illness or injury 88 Not attempted due to Medical conditions or safety concerns Transfers (B, C, W/C) (FIM): 3 Scootin Rollin Roll Left to Right (QC): 4 Supine to/from Sit: 3 Sit to/from Stand: 4 bed t/f WC(FIM only if WC use): 4 Sit to Lying (QC): 2 Lying to Sitting/Side of Bed(Q: 4 Sit to Stand (QC): 4 Chair/Qhy-fl-Rklpt Xfer(QC): 4 Car Transfer (QC): 3 sit<->stand CGA w/ cues to push off from chair/bed, sit->supine modA w/ assistance getting both legs into bed, supine->sit SBA w/ cues to push off bed to sit up, bed<->chair CGA, car transfer modA w/ assistance getting legs into/ out of car Gait Does the Patient Walk?: Yes Mode of Locomotion: Walk Anticipated Mode of Locomotion: Walk Gait (FIM): 2 Distance (FIM): 5=279-38 ft Walk 10 feet (QC): 4 Walk 50 ft with 2 Turns(QC): 4 Walk 150 ft (QC): 88 Walking 10ft/uneven surface-QC: 4 Distance: 30',20',60' Gait Level of Assist: 4 Gait Persons Needed: 1 Gait Assistive Device: FWW Comments/Gait Description pt ambulates w/ FWW and CGA, gait is very slow with steps only a few inches in length, pt needs cues to stand up straight instead of leaning on walker, steady , no LOB Wheelchair Training Does the Pt Use a Wheelchair?: Yes Wheelchair (FIM): 1 Distance: 150' Wheelchair Level of Assist: 1 Wheel 50 ft with 2 turns (QC): 1 Wheel 150 ft (QC): 1 Type of Wheelchair: Manual Stairs Stairs (FIM): 0 #of Steps: 0 Level of Assist: 0 1 Step (curb) (QC): 88 4 Steps (QC): 88 12 Steps (QC): 88 If not tested on admit;explain pt unable to get enough foot clearance to step up Balance Sitting Static: Normal Sitting Dynamic: Normal Standing Static: Fair Standing Dynamic: Fair Picking up an Object (QC): 88 Assessment/Needs impaired strength, mobility, balance, and endurance Rehab Potential: Fair PT Short Term Goals Short Term Goals Time Frame: Dec 12, 2017 Transfers (B,C,W/C) (FIM): 4 Gait (FIM): 2 Gait Distance Comment: 100' Gait Level of Assist: 4 Gait Assistive Device: FWW PT Public Health Training Assistant Goals Public Health Training Assistant Goals PT Long-Term Goals Time Frame: Dec 26, 2017 Transfers (B,C,W/C) (FIM): 5 Sit to Lying (QC): 4 Lying-Sitting on Side/Bed(QC): 4 Sit to Stand (QC): 4 Rollin Roll Left to Right (QC): 4 Chair/Jba-od-Lykco Xfer(QC): 4 Car Transfer (QC): 4 Does the Patient Walk: Yes Gait (FIM): 5 Distance: 150' Walk 10 feet (QC): 4 Walk 10ft-Uneven Surface(QC): 4 Walk 50ft with 2 Turns (QC): 4 Walk 150 ft (QC): 4 Gait Level of Assist: 5 Gait Assistive Device: FWW Stairs (FIM): 2 # of Steps: 4 1 Step (curb) (QC): 4 4 Steps (QC): 4 12 Steps (QC): 4 Stairs Level Of Assist: 4 PT Plan Problem List Problem List: Activity Tolerance, Functional Strength, Safety, Balance, Gait, Transfer, Bed Mobility, ROM Treatment/Plan Treatment Plan: Continue Plan of Care Treatment Plan: Bed Mobility, Concurrent Therapy, Education, Functional Activity Yimi, Functional Strength, Group Therapy, Gait, Safety, Therapeutic Exercise, Transfers Treatment Duration: Dec 26, 2017 Frequency: Modified Program (IRF) Estimated Hrs Per Day: 1.5 hours per day Patient and/or Family Agrees t: Yes Safety Risks/Education Patient Education: Gait Training, Transfer Techniques, Steps, Correct Positioning, Safety Issues Teaching Recipient: Patient Teaching Methods: Demonstration, Discussion Response to Teaching: Reinforcement Needed Discharge Recommendations Plan Pt to perform transfer, gait, endurance, strength, balance, and bed mobility, as well as education Therapy D/C Recommendations: Home w/ Family Support, Fdc (TCU/NH) Time/GCodes Time In: 1100 Time Out: 1205 Total Billed Treatment Time: 65 Total Billed Treatment 1 visit EVM 10' FA 45' GT 10' Co-treat w/ OT 55', OT worked on UE strengthening and coordination as well as toileting and UE positioning and safety during mobility activities, PT worked on LE strengthening, gait training, and transfers. RICO QUEZADA PT Dec 05, 2017 12:15
--- NOTE | 2017-12-05 12:56 | Occupational Therapy Eval ---
OT Evaluation-General/PLF Medical Diagnosis Admission Date Dec 05, 2017 at 12:15 Medical Diagnosis: debility Onset Date: Dec 05, 2017 Therapy Diagnosis Therapy Diagnosis: decr self care, decr act daisy, decr funct mob, weakness Height/Weight Height (Feet): 5 Height (Inches): 5.00 Weight (Pounds): 324 Weight (Ounces): 0.0 Precautions Precautions/Isolations: Standard Precautions Referral Physician: Atilio Referral Reason: Evaluation/Treatment Medical History Pertinent Medical History: DM, HTN Additional Medical History Hyperlipidemia. Wounds on bilat LEs. Anemia under tx with Dr Troncoso Current History Pt admitted from home at 10:50 due to 1 month decline in ability to take care of herself Reviewed History: Yes Social History Home: Single Level Current Living Status: Alone Entry Into Home: Ramp ADL-Prior Level of Function ADL PLOF Comments Pt reported that she was able to manage her basic self care needs until about a month ago when she noted what had been a gradual decline in mobility. She noted a 70 pound weight loss since March. She walked in her home with a FWW, 4WW and SPC, depending on the day and moved mainly from her bed to the bathroom and then to her recliner. She has weeping wounds on bilat LEs and bandages them herself. She said that her L knee gave out recently and she doesn't trust it. Because of this, she hasn't been getting in and out of shower and has been taking sponge baths for at least a month. 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 She has a son who lives locally and who mows, takes out the trash, etc. 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 Described discomfort in LEs but did not rate it. Appearance Alert, cooperative Mental Status/Objective Patient Orientation: Person, Place, Time, Situation Current Glasses/Contacts: Yes Hearing Aids: No Dentures/Partials: No Hand Dominance: Right Upper Extremity ROM Grossly WFL bilat (shoulders limited to about 90 degrees flex/abd) Upper Extremity Coordination No problems, per pt report Upper Extremity Sensation Pt reported occasional numbness R hand but thinks it's related to sleeping on arm Upper Extremity Strength Grossly 4/5 bilat ADL-Treatment ADL-Current Pt was seen co-treat by PT and OT due to decreased activity tolerance and decreased functional mobility (it was reported that she needed two person assist with transfers), with OT focusing on UEs and ADLs and PT focusing on mobility and LEs. She needed one person help to get up from recliner and walked short distances CGA, FWW before needing to rest. She consistently needed skilled cues for hand placement for sit to stand and for sitting back down and cues to keep walker closer to her. She walked about 20 feet with CGA, FWW to get on/off BSC over toilet with cues for hand placement, min assist getting up and down and help getting pants back up due to fatigue (she was able to manage her hygiene and pants down). She has wounds on both lower legs which weep significantly. She walked slowly back to recliner and needed cues for hand placement for sitting. Pt left up in recliner, all needs met. Functional [place] Measure 0=Not Assessed/NA 4=Minimal Assistance 1=Total Assistance 5=Supervision or Setup 2=Maximal Assistance 6=Modified [place] 3=Moderate Assistance 7=Complete IndependenceIRFPAI Quality Coding Scale 6 Independent with activity with or without an assistive device 5 Patient requires set up or clean up by helper. Patient completes activity by themselves 4 Supervision or touching assist (CGA). [place] provide cues , steadying assist 3 The helper provides less than half the effort to complete the activity 2 The helper provides more than half the effort to complete the activity 1 Dependent. The helper does all the effort to complete an activity 7 Patient refused to complete or attempt activity 9 The patient did not perform the activity before the current illness or injury 88 Not attempted due to Medical conditions or safety concerns Toileting (FIM): 3 (Able to wipe and get pants down but needed help to get pants up due to fatigue. BSC over toilet) Toileting Hygiene (QC): 3 Toilet/Commode Transfer (FIM): 4 (Min assist getting on and off BSC over toilet , skilled cues for hand placement. FWW) Toilet Transfer (QC): 3 Education OT Patient Education: Modified ADL techniques, Purpose of tx/functional activities, Rehab process, Safety issues, Transfer techniques, Use of adapted equipment Teaching Recipient: Patient Teaching Methods: Demonstration, Discussion Response to Teaching: Verbalize Understanding, Return Demonstration, Reinforcement Needed OT Short Term Goals Short Term Goals Time Frame: Dec 12, 2017 Toileting(FIM): 5 Toilet/Commode Transfer(FIM): 5 Additional Short Term Goals: 1-Demonstrate ADL Tasks, 2-Verbalize Understanding , 3-ImproveStrength/Yimi 1=Demonstrate adherence to instructed precautions during ADL tasks. 2=Patient will verbalize/demonstrate understanding of assistive devices/ modifications for ADL. 3=Patient will improve strength/tolerance for activity to enable patient to perform ADL's. OT Animal Ecologist Goals Mcfp Goals Time Frame: Dec 26, 2017 Eating (FIM): 7 Eating (QC): 6 Groomin Oral Hygiene (QC): 6 Bathing(FIM): 6 Shower/Bathe Self (QC): 6 Upper Body Dressing(FIM): 6 Upper Body Dressing (QC): 6 Lower Body Dressing(FIM): 6 Lower Body Dressing (QC): 6 On/Off Footwear (QC): 6 Toileting(FIM): 6 Toileting Hygiene (QC): 6 Toilet/Commode Transfer(FIM): 6 Toilet/Commode Transfer (QC): 6 Shower Transfer(FIM): 6 Additional Goals: 1-Demonstrate ADL Tasks, 2-Verbalize Understanding, 3- ImproveStrength/Yimi 1=Demonstrate adherence to instructed precautions during ADL tasks. 2=Patient will verbalize/demonstrate understanding of assistive devices/ modifications for ADL. 3=Patient will improve strength/tolerance for activity to enable patient to perform ADL's. OT Education/Plan Problem List/Assessment Assessment: Decreased Activ Tolerance, Decreased UE Strength, Dependent Transfers, Impaired Self-Care Skills Pt would benefit from skilled OT to increase her independence in basic self care to allow her to safely return to her home Discharge Recommendations Plan/Recommendations: Continue POC Treatment Plan/Plan of Care Treatment,Training & Education: Yes Patient would benefit from OT for education, treatment and training to promote independence in ADL's, mobility, safety and/or upper extremity function for ADL' s. Plan of Care: ADL Retraining, Functional Mobility, Group Exercise/Act as Ind ( education, exercise, functional activity, activity tolerance, functional mobility, socialization), UE Funct Exercise/Act, UE Neuromus Re-Ed/Coord Treatment Duration: Dec 26, 2017 Frequency: At least 5 of 7 days/Wk (IRF) Estimated Hrs Per Day: 1.5 hours per day Rehab Potential: Fair Time/GCodes Start Time: 10:50 Stop Time: 12:05 Total Time Billed (hr/min): 65 Billed Treatment Time visit, 10 minutes evaluation moderate intensity, 55 minutes ADL (PT eval 1100 to 1110, co-treat with PT from 1110 to 1205) ASHLI MEZA OT Dec 05, 2017 12:56
--- OUTSIDE RECORDS SUMMARY | 2017-12-05 14:01 | XMS REPORT | Continuity of Care Document ---
Author Author [facility] Organization [facility] Address Unknown Phone Unavailable Allergies Active Description Code Type Severity Reaction Onset Reported/Identified Relationship to Patient Clinical Status Yes penicillin G [id number] Drug Allergy Unknown N/A 12/30/2005 Yes NSAIDS (Non-Steroidal Anti-Inflamma [id number] Drug Allergy Unknown N/A Yes penicillin G [id number] Drug Allergy Unknown HAS RECEIVED AN 10/13/2015 Medications There is no data. 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 02/21/1399 OLIVER COBOS MD, Ot E11.622 TYPE 2 DIABETES MELLITUS WITH OTHER SKIN 02/21/1399 OLIVER COBOS MD, Ot E66.01 MORBID (SEVERE) OBESITY DUE TO EXCESS CA 02/21/1399 OLIVER COBOS MD, Ot 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 02/21/1399 OLIVER COBOS MD, Ot L97.212 NON-PRESSURE CHRONIC ULCER OF RIGHT CALF 02/21/1399 OLIVER COBOS MD Ot Z68.43 BODY MASS INDEX (BMI) 50-59.9 , ADULT 02/21/1599 OLIVER COBOS MD Ot E11.622 TYPE 2 DIABETES MELLITUS WITH OTHER SKIN 02/21/1599 OLIVER COBOS MD Ot E66.01 MORBID (SEVERE) OBESITY DUE TO EXCESS CA 02/21/1599 OLIVER COBOS MD Ot 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 02/21/1599 OLIVER COBOS MD Ot L97.212 NON-PRESSURE CHRONIC ULCER OF RIGHT CALF 02/21/1599 OLIVER COBOS MD Ot Z68.43 BODY MASS INDEX (BMI) 50-59.9 , ADULT 05/09/2010 Ot 211.3 BENIGN NEOPLASM LG BOWEL 05/09/2010 Ot 285.9 ANEMIA NOS 05/09/2010 Ot 455.0 INT HEMORRHOID W/O COMPL 05/09/2010 Ot 455.3 EXT HEMORRHOID W/O COMPL 05/09/2010 Ot 562.10 DIVERTICULOSIS COLON (W/O MENT OF HEMORR 05/09/2010 Ot 569.3 RECTAL ANAL HEMORRHAGE 05/09/2010 Ot V16.0 FAMILY HX-GI MALIGNANCY 06/05/2010 Ot 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 11/08/2011 Ot 719.41 JOINT PAIN- SHLDER 11/08/2011 Ot 724.2 LUMBAGO 11/08/2011 Ot V57.1 PHYSICAL THERAPY NEC 02/10/2014 JOHN MCCARTNEY MD Ot 459.81 03/10/2014 JOHN MCCARTNEY MD Ot 459.81 03/16/2014 JOHN MCCARTNEY MD Ot 459.81 03/22/2014 JOHN MCCARTNEY MD Ot 459.81 VENOUS INSUFFICIENCY NOS 03/31/2014 JOHN MCCARTNEY MD Ot V76.12 09/02/2015 JOHN MCCARTNEY MD Ot V76.12 OTH SCREEN MAMMO-MALIGN NEOPLASM OF ALISTAIR 09/27/2015 JOHN MCCARTNEY MD Ot V76.12 OTH SCREEN MAMMO-MALIGN NEOPLASM OF ALISTAIR 09/27/2015 OLIVER COBOS MD Ot E11.622 TYPE 2 DIABETES MELLITUS WITH OTHER SKIN 09/27/2015 OLIVER COBOS MD Ot E66.01 MORBID (SEVERE) OBESITY DUE TO EXCESS CA 09/27/2015 OLIVER COBOS MD Ot 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 09/27/2015 OLIVER COBOS MD Ot L97.212 NON-PRESSURE CHRONIC ULCER OF RIGHT CALF 09/28/2015 DIA CORDERO BAKER PAINT Ot E11.622 TYPE 2 DIABETES MELLITUS WITH OTHER SKIN 09/28/2015 CONSUELODIA BAKER PAINT Ot E66.01 MORBID (SEVERE) OBESITY DUE TO EXCESS CA 09/28/2015 DIA CORDERO BAKER PAINT Ot 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 09/28/2015 DIA CRODERO BAKER PAINT Ot L97.212 NON-PRESSURE CHRONIC ULCER OF RIGHT CALF 10/03/2015 DIA CORDERO BAKER PAINT Ot E11.622 TYPE 2 DIABETES MELLITUS WITH OTHER SKIN 10/03/2015 DIA CORDERO BAKER PAINT Ot E66.01 MORBID (SEVERE) OBESITY DUE TO EXCESS CA 10/03/2015 DIA CORDERO BAKER PAINT Ot 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 10/03/2015 DIA CORDERO BAKER PAINT Ot L97.212 NON-PRESSURE CHRONIC ULCER OF RIGHT CALF 10/03/2015 Ot 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 10/03/2015 Ot V76.12 OTH SCREEN MAMMO-MALIGN NEOPLASM OF ALISTAIR 10/03/2015 SHERRILL GAMBINO, JOHN D Ot V76.12 OTH SCREEN MAMMO-MALIGN NEOPLASM OF ALISTAIR 10/03/2015 OLIVER COBOS MD Ot E11.622 TYPE 2 DIABETES MELLITUS WITH OTHER SKIN 10/03/2015 OLIVER COBOS MD Ot E66.01 MORBID (SEVERE) OBESITY DUE TO EXCESS CA 10/03/2015 OLIVER COBOS MD Ot 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 10/03/2015 OLIVER COBOS MD Ot L97.212 NON-PRESSURE CHRONIC ULCER OF RIGHT CALF 10/03/2015 DIA CORDERO BAKER PAINT Ot E11.622 TYPE 2 DIABETES MELLITUS WITH OTHER SKIN 10/03/2015 DIA CORDERO BAKER PAINT Ot E66.01 MORBID (SEVERE) OBESITY DUE TO EXCESS CA 10/03/2015 DIA CORDERO APRN Ot 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 10/03/2015 DIA CORDERO APRN Ot L97.212 NON-PRESSURE CHRONIC ULCER OF RIGHT CALF 10/13/2015 Ot 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 10/13/2015 Ot 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 10/18/2015 OLIVER COBOS MD, Ot E11.622 TYPE 2 DIABETES MELLITUS WITH OTHER SKIN 10/18/2015 OLIVER COBOS MD, Ot E66.01 MORBID (SEVERE) OBESITY DUE TO EXCESS CA 10/18/2015 OLIVER COBOS MD, Ot 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 10/18/2015 OLIVER COBOS MD, Ot L97.212 NON-PRESSURE CHRONIC ULCER OF RIGHT CALF 10/18/2015 OLIVER COBOS MD, Ot Z68.43 BODY MASS INDEX (BMI) 50-59.9 , ADULT 10/18/2015 OLIVER COBOS MD, Ot E11.622 TYPE 2 DIABETES MELLITUS WITH OTHER SKIN 10/18/2015 OLIVER COBOS MD, Ot E66.01 MORBID (SEVERE) OBESITY DUE TO EXCESS CA 10/18/2015 OLIVER COBOS MD, Ot 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 10/18/2015 OLIVER COBOS MD, Ot L97.212 NON-PRESSURE CHRONIC ULCER OF RIGHT CALF 10/18/2015 OLIVER COBOS MD, Ot Z68.43 BODY MASS INDEX (BMI) 50-59.9 , ADULT 10/19/2015 OLIVER COBOS MD, Ot E11.622 TYPE 2 DIABETES MELLITUS WITH OTHER SKIN 10/19/2015 OLIVER COBOS MD, Ot E66.01 MORBID (SEVERE) OBESITY DUE TO EXCESS CA 10/19/2015 OLIVER COBOS MD, Ot 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 10/19/2015 OLIVER COBOS MD, Ot L97.212 NON-PRESSURE CHRONIC ULCER OF RIGHT CALF 10/19/2015 OLIVER COBOS MD, Ot Z68.43 BODY MASS INDEX (BMI) 50-59.9 , ADULT 10/19/2015 OLIVER COBOS MD, Ot E11.622 TYPE 2 DIABETES MELLITUS WITH OTHER SKIN 10/19/2015 OLIVER COBOS MD, Ot E66.01 MORBID (SEVERE) OBESITY DUE TO EXCESS CA 10/19/2015 OLIVER COBOS MD, Ot 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 10/19/2015 OLIVER COBOS MD, Ot L97.212 NON-PRESSURE CHRONIC ULCER OF RIGHT CALF 10/19/2015 OLIVER COBOS MD, Ot Z68.43 BODY MASS INDEX (BMI) 50-59.9 , ADULT 10/20/2015 OLIVER COBOS MD, Ot E11.622 TYPE 2 DIABETES MELLITUS WITH OTHER SKIN 10/20/2015 OLIVER COBOS MD, Ot E66.01 MORBID (SEVERE) OBESITY DUE TO EXCESS CA 10/20/2015 OLIVER COBOS MD, Ot 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 10/20/2015 OLIVER COBOS MD, Ot L97.212 NON-PRESSURE CHRONIC ULCER OF RIGHT CALF 10/20/2015 OLIVER COBOS MD, Ot Z68.43 BODY MASS INDEX (BMI) 50-59.9 , ADULT 10/20/2015 OLIVER COBOS MD, Ot E11.622 TYPE 2 DIABETES MELLITUS WITH OTHER SKIN 10/20/2015 OLIVER COBOS MD, Ot E66.01 MORBID (SEVERE) OBESITY DUE TO EXCESS CA 10/20/2015 OLIVER COBOS MD, Ot 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 10/20/2015 OLIVER COBOS MD, Ot L97.212 NON-PRESSURE CHRONIC ULCER OF RIGHT CALF 10/20/2015 OLIVER COBOS MD, Ot Z68.43 BODY MASS INDEX (BMI) 50-59.9 , ADULT 10/20/2015 OLIVER COBOS MD, Ot E11.622 TYPE 2 DIABETES MELLITUS WITH OTHER SKIN 10/20/2015 OLIVER COBOS MD, Ot E66.01 MORBID (SEVERE) OBESITY DUE TO EXCESS CA 10/20/2015 OLIVER COBOS MD, Ot 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 10/20/2015 OLIVER COBOS MD, Ot L97.212 NON-PRESSURE CHRONIC ULCER OF RIGHT CALF 10/20/2015 OLIVER COBOS MD, Ot Z68.43 BODY MASS INDEX (BMI) 50-59.9 , ADULT 10/21/2015 OLIVER COBOS MD, Ot E11.622 TYPE 2 DIABETES MELLITUS WITH OTHER SKIN 10/21/2015 OLIVER COBOS MD, Ot E66.01 MORBID (SEVERE) OBESITY DUE TO EXCESS CA 10/21/2015 OLIVER COBOS MD, Ot 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 10/21/2015 OLIVER COBOS MD, Ot L97.212 NON-PRESSURE CHRONIC ULCER OF RIGHT CALF 10/21/2015 OLIVER COBOS MD, Ot Z68.43 BODY MASS INDEX (BMI) 50-59.9 , ADULT 10/21/2015 OLIVER COBOS MD, Ot E11.622 TYPE 2 DIABETES MELLITUS WITH OTHER SKIN 10/21/2015 OLIVER COBOS MD, Ot E66.01 MORBID (SEVERE) OBESITY DUE TO EXCESS CA 10/21/2015 OLIVER COBOS MD, Ot 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 10/21/2015 OLIVER COBOS MD, Ot L97.212 NON-PRESSURE CHRONIC ULCER OF RIGHT CALF 10/21/2015 OLIVER COBOS MD, Ot Z68.43 BODY MASS INDEX (BMI) 50-59.9 , ADULT 10/21/2015 OLIVER COBOS MD, Ot E11.622 TYPE 2 DIABETES MELLITUS WITH OTHER SKIN 10/21/2015 OLIVER COBOS MD, Ot E66.01 MORBID (SEVERE) OBESITY DUE TO EXCESS CA 10/21/2015 OLIVER COBOS MD, Ot 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 10/21/2015 OLIVER COBOS MD, Ot L97.212 NON-PRESSURE CHRONIC ULCER OF RIGHT CALF 10/21/2015 OLIVER COBOS MD, Ot Z68.43 BODY MASS INDEX (BMI) 50-59.9 , ADULT 10/22/2015 OLIVER COBOS MD, Ot E11.622 TYPE 2 DIABETES MELLITUS WITH OTHER SKIN 10/22/2015 OLIVER COBOS MD, Ot E66.01 MORBID (SEVERE) OBESITY DUE TO EXCESS CA 10/22/2015 OLIVER COBOS MD, Ot 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 10/22/2015 OLIVER COBOS MD, Ot L97.212 NON-PRESSURE CHRONIC ULCER OF RIGHT CALF 10/22/2015 OLIVER COBOS MD, Ot Z68.43 BODY MASS INDEX (BMI) 50-59.9 , ADULT 10/22/2015 OLIVER COBOS MD, Ot E11.622 TYPE 2 DIABETES MELLITUS WITH OTHER SKIN 10/22/2015 OLIVER COBOS MD, Ot E66.01 MORBID (SEVERE) OBESITY DUE TO EXCESS CA 10/22/2015 OLIVER COBOS MD, Ot 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 10/22/2015 OLIVER COBOS MD, Ot L97.212 NON-PRESSURE CHRONIC ULCER OF RIGHT CALF 10/22/2015 OLIVER COBOS MD, Ot Z68.43 BODY MASS INDEX (BMI) 50-59.9 , ADULT 10/22/2015 OLIVER COBOS MD, Ot E11.622 TYPE 2 DIABETES MELLITUS WITH OTHER SKIN 10/22/2015 OLIVER COBOS MD, Ot E66.01 MORBID (SEVERE) OBESITY DUE TO EXCESS CA 10/22/2015 OLIVER COBOS MD, Ot 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 10/22/2015 OLIVER COBOS MD, Ot L97.212 NON-PRESSURE CHRONIC ULCER OF RIGHT CALF 10/22/2015 OLIVER COBOS MD, Ot Z68.43 BODY MASS INDEX (BMI) 50-59.9 , ADULT 10/23/2015 OLIVER COBOS MD, Ot E11.622 TYPE 2 DIABETES MELLITUS WITH OTHER SKIN 10/23/2015 OLIVER COBOS MD, Ot E66.01 MORBID (SEVERE) OBESITY DUE TO EXCESS CA 10/23/2015 OLIVER COBOS MD, Ot 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 10/23/2015 OLIVER COBOS MD, Ot L97.212 NON-PRESSURE CHRONIC ULCER OF RIGHT CALF 10/23/2015 OLIVER COBOS MD, Ot Z68.43 BODY MASS INDEX (BMI) 50-59.9 , ADULT 10/23/2015 OLIVER COBOS MD, Ot E11.622 TYPE 2 DIABETES MELLITUS WITH OTHER SKIN 10/23/2015 OLIVER COBOS MD, Ot E66.01 MORBID (SEVERE) OBESITY DUE TO EXCESS CA 10/23/2015 OLIVER COBOS MD, Ot 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 10/23/2015 OLIVER COBOS MD, Ot L97.212 NON-PRESSURE CHRONIC ULCER OF RIGHT CALF 10/23/2015 OLIVER COBOS MD, Ot Z68.43 BODY MASS INDEX (BMI) 50-59.9 , ADULT 10/23/2015 OLIVER COBOS MD, Ot E11.622 TYPE 2 DIABETES MELLITUS WITH OTHER SKIN 10/23/2015 OLIVER COBOS MD, Ot E66.01 MORBID (SEVERE) OBESITY DUE TO EXCESS CA 10/23/2015 OLIVER COBOS MD, Ot 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 10/23/2015 OLIVER COBOS MD, Ot L97.212 NON-PRESSURE CHRONIC ULCER OF RIGHT CALF 10/23/2015 OLIVER COBOS MD, Ot Z68.43 BODY MASS INDEX (BMI) 50-59.9 , ADULT 10/23/2015 OLIVER COBOS MD, Ot E11.622 TYPE 2 DIABETES MELLITUS WITH OTHER SKIN 10/23/2015 OLIVER COBOS MD, Ot E66.01 MORBID (SEVERE) OBESITY DUE TO EXCESS CA 10/23/2015 OLIVER COBOS MD, Ot 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 10/23/2015 OLIVER COBOS MD, Ot L97.212 NON-PRESSURE CHRONIC ULCER OF RIGHT CALF 10/23/2015 OLIVER COBOS MD, Ot Z68.43 BODY MASS INDEX (BMI) 50-59.9 , ADULT 10/23/2015 OLIVER COBOS MD, Ot E11.622 TYPE 2 DIABETES MELLITUS WITH OTHER SKIN 10/23/2015 OLIVER COBOS MD, Ot E66.01 MORBID (SEVERE) OBESITY DUE TO EXCESS CA 10/23/2015 OLIVER COBOS MD, Ot 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 10/23/2015 OLIVER COBOS MD, Ot L97.212 NON-PRESSURE CHRONIC ULCER OF RIGHT CALF 10/23/2015 OLIVER COBOS MD, Ot Z68.43 BODY MASS INDEX (BMI) 50-59.9 , ADULT 10/24/2015 OLIVER COBOS MD, Ot E11.622 TYPE 2 DIABETES MELLITUS WITH OTHER SKIN 10/24/2015 OLIVER COBOS MD, Ot E66.01 MORBID (SEVERE) OBESITY DUE TO EXCESS CA 10/24/2015 OLIVER COBOS MD, Ot 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 10/24/2015 OLIVER COBOS MD, Ot L97.212 NON-PRESSURE CHRONIC ULCER OF RIGHT CALF 10/24/2015 OLIVER COBOS MD, Ot Z68.43 BODY MASS INDEX (BMI) 50-59.9 , ADULT 10/24/2015 OLIVER COBOS MD, Ot E11.622 TYPE 2 DIABETES MELLITUS WITH OTHER SKIN 10/24/2015 OLIVER COBOS MD, Ot E66.01 MORBID (SEVERE) OBESITY DUE TO EXCESS CA 10/24/2015 OLIVER COBOS MD, Ot 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 10/24/2015 OLIVER COBOS MD, Ot L97.212 NON-PRESSURE CHRONIC ULCER OF RIGHT CALF 10/24/2015 OLIVER COBOS MD, Ot Z68.43 BODY MASS INDEX (BMI) 50-59.9 , ADULT 10/24/2015 OLIVER COBOS MD, Ot E11.622 TYPE 2 DIABETES MELLITUS WITH OTHER SKIN 10/24/2015 OLIVER COBOS MD, Ot E66.01 MORBID (SEVERE) OBESITY DUE TO EXCESS CA 10/24/2015 OLIVER COBOS MD, Ot 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 10/24/2015 OLIVER COBOS MD, Ot L97.212 NON-PRESSURE CHRONIC ULCER OF RIGHT CALF 10/24/2015 OLIVER COBOS MD, Ot Z68.43 BODY MASS INDEX (BMI) 50-59.9 , ADULT 10/25/2015 OLIVER COBOS MD, Ot E11.622 TYPE 2 DIABETES MELLITUS WITH OTHER SKIN 10/25/2015 OLIVER COBOS MD, Ot E66.01 MORBID (SEVERE) OBESITY DUE TO EXCESS CA 10/25/2015 OLIVER COBOS MD, Ot 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 10/25/2015 OLIVER COBOS MD, Ot L97.212 NON-PRESSURE CHRONIC ULCER OF RIGHT CALF 10/25/2015 OLIVER COBOS MD, Ot Z68.43 BODY MASS INDEX (BMI) 50-59.9 , ADULT 10/25/2015 OLIVER COBOS MD, Ot E11.622 TYPE 2 DIABETES MELLITUS WITH OTHER SKIN 10/25/2015 OLIVER COBOS MD, Ot E66.01 MORBID (SEVERE) OBESITY DUE TO EXCESS CA 10/25/2015 OLIVER COBOS MD, Ot 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 10/25/2015 OLIVER COBOS MD, Ot L97.212 NON-PRESSURE CHRONIC ULCER OF RIGHT CALF 10/25/2015 OLIVER COBOS MD, Ot Z68.43 BODY MASS INDEX (BMI) 50-59.9 , ADULT 10/26/2015 OLIVER COBOS MD, Ot E11.622 TYPE 2 DIABETES MELLITUS WITH OTHER SKIN 10/26/2015 OLIVER COBOS MD, Ot E66.01 MORBID (SEVERE) OBESITY DUE TO EXCESS CA 10/26/2015 OLIVER COBOS MD, Ot 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 10/26/2015 OLIVER COBOS MD, Ot L97.212 NON-PRESSURE CHRONIC ULCER OF RIGHT CALF 10/26/2015 OLIVER COBOS MD, Ot Z68.43 BODY MASS INDEX (BMI) 50-59.9 , ADULT 10/26/2015 OLIVER COBOS MD, Ot E11.622 TYPE 2 DIABETES MELLITUS WITH OTHER SKIN 10/26/2015 OLIVER COBOS MD, Ot E66.01 MORBID (SEVERE) OBESITY DUE TO EXCESS CA 10/26/2015 OLIVER COBOS MD, Ot 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 10/26/2015 OLIVER COBOS MD, Ot L97.212 NON-PRESSURE CHRONIC ULCER OF RIGHT CALF 10/26/2015 OLIVER COBOS MD, Ot Z68.43 BODY MASS INDEX (BMI) 50-59.9 , ADULT 11/03/2015 OLIVER COBOS MD, Ot E11.622 TYPE 2 DIABETES MELLITUS WITH OTHER SKIN 11/03/2015 OLIVER COBOS MD, Ot E66.01 MORBID (SEVERE) OBESITY DUE TO EXCESS CA 11/03/2015 OLIVER COBOS MD, Ot 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 11/03/2015 OLIVER COBOS MD, Ot L97.212 NON-PRESSURE CHRONIC ULCER OF RIGHT CALF 11/03/2015 DIA CORDERO APRN Ot E11.622 TYPE 2 DIABETES MELLITUS WITH OTHER SKIN 11/03/2015 DIA CORDERO BAKER PAINT Ot E66.01 MORBID (SEVERE) OBESITY DUE TO EXCESS CA 11/03/2015 DIA CORDERO APRN Ot 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 11/03/2015 DIA CORDERO APRN Ot L97.212 NON-PRESSURE CHRONIC ULCER OF RIGHT CALF 11/04/2015 OLIVER COBOS MD, Ot E11.622 TYPE 2 DIABETES MELLITUS WITH OTHER SKIN 11/04/2015 OLIVER COBOS MD, Ot E66.01 MORBID (SEVERE) OBESITY DUE TO EXCESS CA 11/04/2015 OLIVER COBOS MD Ot 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 11/04/2015 OLIVER COBOS MD, Ot L97.212 NON-PRESSURE CHRONIC ULCER OF RIGHT CALF 11/04/2015 OLIVER COBOS MD, Ot Z68.43 BODY MASS INDEX (BMI) 50-59.9 , ADULT 11/14/2015 OLIVER COBOS MD, Ot E11.622 TYPE 2 DIABETES MELLITUS WITH OTHER SKIN 11/14/2015 OLIVER COBOS MD, Ot E66.01 MORBID (SEVERE) OBESITY DUE TO EXCESS CA 11/14/2015 OLIVER COBOS MD, Ot 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 11/14/2015 OLIVER COBOS MD, Ot L97.212 NON-PRESSURE CHRONIC ULCER OF RIGHT CALF 11/16/2015 OLIVER COBOS MD, Ot E11.622 TYPE 2 DIABETES MELLITUS WITH OTHER SKIN 11/16/2015 OLIVER COBOS MD, Ot E66.01 MORBID (SEVERE) OBESITY DUE TO EXCESS CA 11/16/2015 OLIVER COBOS MD, Ot 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 11/16/2015 OLIVER COBOS MD, Ot L97.212 NON-PRESSURE CHRONIC ULCER OF RIGHT CALF 11/16/2015 OLIVER COBOS MD, Ot Z68.43 BODY MASS INDEX (BMI) 50-59.9 , ADULT 11/17/2015 OLIVER COBOS MD, Ot E11.622 TYPE 2 DIABETES MELLITUS WITH OTHER SKIN 11/17/2015 OLIVER COBOS MD, Ot E66.01 MORBID (SEVERE) OBESITY DUE TO EXCESS CA 11/17/2015 OLIVER COBOS MD, Ot 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 11/17/2015 OLIVER COBOS MD, Ot L97.212 NON-PRESSURE CHRONIC ULCER OF RIGHT CALF 11/17/2015 OLIVER COBOS MD, Ot Z68.43 BODY MASS INDEX (BMI) 50-59.9 , ADULT 11/17/2015 OLIVER COBOS MD, Ot E11.622 TYPE 2 DIABETES MELLITUS WITH OTHER SKIN 11/17/2015 OLIVER COBOS MD, Ot E66.01 MORBID (SEVERE) OBESITY DUE TO EXCESS CA 11/17/2015 OLIVER COBOS MD, Ot 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 11/17/2015 OLIVER COBOS MD, Ot L97.212 NON-PRESSURE CHRONIC ULCER OF RIGHT CALF 11/17/2015 OLIVER COBOS MD, Ot Z68.43 BODY MASS INDEX (BMI) 50-59.9 , ADULT 11/18/2015 OLIVER COBOS MD, Ot E11.622 TYPE 2 DIABETES MELLITUS WITH OTHER SKIN 11/18/2015 OLIVER COBOS MD, Ot E66.01 MORBID (SEVERE) OBESITY DUE TO EXCESS CA 11/18/2015 OLIVER COBOS MD, Ot 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 11/18/2015 OLIVER COBOS MD, Ot L97.212 NON-PRESSURE CHRONIC ULCER OF RIGHT CALF 11/18/2015 OLIVER COBOS MD, Ot Z68.43 BODY MASS INDEX (BMI) 50-59.9 , ADULT 11/18/2015 OLIVER COBOS MD, Ot E11.622 TYPE 2 DIABETES MELLITUS WITH OTHER SKIN 11/18/2015 OLIVER COBOS MD, Ot E66.01 MORBID (SEVERE) OBESITY DUE TO EXCESS CA 11/18/2015 OLIVER COBOS MD, Ot 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 11/18/2015 OLIVER COBOS MD, Ot L97.212 NON-PRESSURE CHRONIC ULCER OF RIGHT CALF 11/18/2015 OLIVER COBOS MD, Ot Z68.43 BODY MASS INDEX (BMI) 50-59.9 , ADULT 11/19/2015 OLIVER COBOS MD, Ot E11.622 TYPE 2 DIABETES MELLITUS WITH OTHER SKIN 11/19/2015 OLIVER COBOS MD, Ot E66.01 MORBID (SEVERE) OBESITY DUE TO EXCESS CA 11/19/2015 OLIVER COBOS MD, Ot 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 11/19/2015 OLIVER COBOS MD, Ot L97.212 NON-PRESSURE CHRONIC ULCER OF RIGHT CALF 11/19/2015 OLIVER COBOS MD, Ot Z68.43 BODY MASS INDEX (BMI) 50-59.9 , ADULT 11/19/2015 OLIVER COBOS MD, Ot E11.622 TYPE 2 DIABETES MELLITUS WITH OTHER SKIN 11/19/2015 OLIVER COBOS MD, Ot E66.01 MORBID (SEVERE) OBESITY DUE TO EXCESS CA 11/19/2015 OLIVER COBOS MD, Ot 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 11/19/2015 OLIVER COBOS MD, Ot L97.212 NON-PRESSURE CHRONIC ULCER OF RIGHT CALF 11/19/2015 OLIVER COBOS MD, Ot Z68.43 BODY MASS INDEX (BMI) 50-59.9 , ADULT 11/20/2015 OLIVER COBOS MD, Ot E11.622 TYPE 2 DIABETES MELLITUS WITH OTHER SKIN 11/20/2015 OLIVER COBOS MD, Ot E66.01 MORBID (SEVERE) OBESITY DUE TO EXCESS CA 11/20/2015 OLIVER COBOS MD, Ot 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 11/20/2015 OLIVER COBOS MD, Ot L97.212 NON-PRESSURE CHRONIC ULCER OF RIGHT CALF 11/20/2015 OLIVER COBOS MD, Ot Z68.43 BODY MASS INDEX (BMI) 50-59.9 , ADULT 11/20/2015 OLIVER COBOS MD, Ot E11.622 TYPE 2 DIABETES MELLITUS WITH OTHER SKIN 11/20/2015 OLIVER COBOS MD, Ot E66.01 MORBID (SEVERE) OBESITY DUE TO EXCESS CA 11/20/2015 OLIVER COBOS MD, Ot 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 11/20/2015 OLIVER COBOS MD, Ot L97.212 NON-PRESSURE CHRONIC ULCER OF RIGHT CALF 11/20/2015 OLIVER COBOS MD, Ot Z68.43 BODY MASS INDEX (BMI) 50-59.9 , ADULT 11/21/2015 OLIVER COBOS MD, Ot E11.622 TYPE 2 DIABETES MELLITUS WITH OTHER SKIN 11/21/2015 OLIVER COBOS MD, Ot E66.01 MORBID (SEVERE) OBESITY DUE TO EXCESS CA 11/21/2015 OLIVER COBOS MD, Ot 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 11/21/2015 OLIVER COBOS MD, Ot L97.212 NON-PRESSURE CHRONIC ULCER OF RIGHT CALF 11/21/2015 OLIVER COBOS MD, Ot Z68.43 BODY MASS INDEX (BMI) 50-59.9 , ADULT 11/21/2015 OLIVER COBOS MD, Ot E11.622 TYPE 2 DIABETES MELLITUS WITH OTHER SKIN 11/21/2015 OLIVER COBOS MD, Ot E66.01 MORBID (SEVERE) OBESITY DUE TO EXCESS CA 11/21/2015 OLIVER COBOS MD, Ot 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 11/21/2015 OLIVER COBOS MD, Ot L97.212 NON-PRESSURE CHRONIC ULCER OF RIGHT CALF 11/21/2015 OLIVER COBOS MD, Ot Z68.43 BODY MASS INDEX (BMI) 50-59.9 , ADULT 11/22/2015 OLIVER COBOS MD, Ot E11.622 TYPE 2 DIABETES MELLITUS WITH OTHER SKIN 11/22/2015 OLIVER COBOS MD, Ot E66.01 MORBID (SEVERE) OBESITY DUE TO EXCESS CA 11/22/2015 OLIVER COBOS MD, Ot 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 11/22/2015 OLIVER COBOS MD, Ot L97.212 NON-PRESSURE CHRONIC ULCER OF RIGHT CALF 11/22/2015 OLIVER COBOS MD, Ot Z68.43 BODY MASS INDEX (BMI) 50-59.9 , ADULT 11/22/2015 OLIVER COBOS MD, Ot E11.622 TYPE 2 DIABETES MELLITUS WITH OTHER SKIN 11/22/2015 OLIVER COBOS MD, Ot E66.01 MORBID (SEVERE) OBESITY DUE TO EXCESS CA 11/22/2015 OLIVER COBOS MD, Ot 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 11/22/2015 OLIVER COBOS MD, Ot L97.212 NON-PRESSURE CHRONIC ULCER OF RIGHT CALF 11/22/2015 OLIVER COBOS MD, Ot Z68.43 BODY MASS INDEX (BMI) 50-59.9 , ADULT 11/23/2015 OLIVER COBOS MD, Ot E11.622 TYPE 2 DIABETES MELLITUS WITH OTHER SKIN 11/23/2015 OLIVER COBOS MD, Ot E66.01 MORBID (SEVERE) OBESITY DUE TO EXCESS CA 11/23/2015 OLIVER COBOS MD, Ot 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 11/23/2015 OLIVER COBOS MD, Ot L97.212 NON-PRESSURE CHRONIC ULCER OF RIGHT CALF 11/23/2015 OLIVER COBOS MD, Ot Z68.43 BODY MASS INDEX (BMI) 50-59.9 , ADULT 11/23/2015 OLIVER COBOS MD, Ot E11.622 TYPE 2 DIABETES MELLITUS WITH OTHER SKIN 11/23/2015 OLIVER COBOS MD, Ot E66.01 MORBID (SEVERE) OBESITY DUE TO EXCESS CA 11/23/2015 OLIVER COBOS MD, Ot 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 11/23/2015 OLIVER COBOS MD, Ot L97.212 NON-PRESSURE CHRONIC ULCER OF RIGHT CALF 11/23/2015 OLIVER COBOS MD, Ot Z68.43 BODY MASS INDEX (BMI) 50-59.9 , ADULT 11/24/2015 OLIVER COBOS MD, Ot E11.622 TYPE 2 DIABETES MELLITUS WITH OTHER SKIN 11/24/2015 OLIVER COBOS MD, Ot E66.01 MORBID (SEVERE) OBESITY DUE TO EXCESS CA 11/24/2015 OLIVER COBOS MD, Ot 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 11/24/2015 OLIVER COBOS MD, Ot L97.212 NON-PRESSURE CHRONIC ULCER OF RIGHT CALF 11/24/2015 OLIVER COBOS MD, Ot Z68.43 BODY MASS INDEX (BMI) 50-59.9 , ADULT 11/24/2015 OLIVER COBOS MD, Ot E11.622 TYPE 2 DIABETES MELLITUS WITH OTHER SKIN 11/24/2015 OLIVER COBOS MD, Ot E66.01 MORBID (SEVERE) OBESITY DUE TO EXCESS CA 11/24/2015 OLIVER COBOS MD, Ot 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 11/24/2015 OLIVER COBOS MD, Ot L97.212 NON-PRESSURE CHRONIC ULCER OF RIGHT CALF 11/24/2015 OLIVER COBOS MD, Ot Z68.43 BODY MASS INDEX (BMI) 50-59.9 , ADULT 11/24/2015 OLIVER COBOS MD, Ot E11.622 TYPE 2 DIABETES MELLITUS WITH OTHER SKIN 11/24/2015 OLIVER COBOS MD, Ot E66.01 MORBID (SEVERE) OBESITY DUE TO EXCESS CA 11/24/2015 OLIVER COBOS MD, Ot 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 11/24/2015 OLIVER COBOS MD, Ot L97.212 NON-PRESSURE CHRONIC ULCER OF RIGHT CALF 11/24/2015 OLIVER COBOS MD, Ot Z68.43 BODY MASS INDEX (BMI) 50-59.9 , ADULT 11/25/2015 OLIVER COBOS MD, Ot E11.622 TYPE 2 DIABETES MELLITUS WITH OTHER SKIN 11/25/2015 OLIVER COBOS MD, Ot E66.01 MORBID (SEVERE) OBESITY DUE TO EXCESS CA 11/25/2015 OLIVER COBOS MD, Ot 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 11/25/2015 OLIVER COBOS MD, Ot L97.212 NON-PRESSURE CHRONIC ULCER OF RIGHT CALF 11/25/2015 OLIVER COBOS MD, Ot Z68.43 BODY MASS INDEX (BMI) 50-59.9 , ADULT 11/25/2015 OLIVER COBOS MD, Ot E11.622 TYPE 2 DIABETES MELLITUS WITH OTHER SKIN 11/25/2015 OLIVER COBOS MD, Ot E66.01 MORBID (SEVERE) OBESITY DUE TO EXCESS CA 11/25/2015 OLIVER COBOS MD, Ot 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 11/25/2015 OLIVER COBOS MD, Ot L97.212 NON-PRESSURE CHRONIC ULCER OF RIGHT CALF 11/25/2015 OLIVER COBOS MD, Ot Z68.43 BODY MASS INDEX (BMI) 50-59.9 , ADULT 11/25/2015 OLIVER COBOS MD, Ot E11.622 TYPE 2 DIABETES MELLITUS WITH OTHER SKIN 11/25/2015 OLIVER COBOS MD, Ot E66.01 MORBID (SEVERE) OBESITY DUE TO EXCESS CA 11/25/2015 OLIVER COBOS MD, Ot 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 11/25/2015 OLIVER COBOS MD, Ot L97.212 NON-PRESSURE CHRONIC ULCER OF RIGHT CALF 11/25/2015 OLIVER COBOS MD, Ot Z68.43 BODY MASS INDEX (BMI) 50-59.9 , ADULT 11/25/2015 OLIVER COBOS MD, Ot E11.622 TYPE 2 DIABETES MELLITUS WITH OTHER SKIN 11/25/2015 OLIVER COBOS MD, Ot E66.01 MORBID (SEVERE) OBESITY DUE TO EXCESS CA 11/25/2015 OLIVER COBOS MD, Ot 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 11/25/2015 OLIVER COBOS MD, Ot L97.212 NON-PRESSURE CHRONIC ULCER OF RIGHT CALF 11/25/2015 OLIVER COBOS MD, Ot Z68.43 BODY MASS INDEX (BMI) 50-59.9 , ADULT 11/25/2015 OLIVER COBOS MD, Ot E11.622 TYPE 2 DIABETES MELLITUS WITH OTHER SKIN 11/25/2015 OLIVER COBOS MD, Ot E66.01 MORBID (SEVERE) OBESITY DUE TO EXCESS CA 11/25/2015 OLIVER COBOS MD, Ot 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 11/25/2015 OLIVER COBOS MD, Ot L97.212 NON-PRESSURE CHRONIC ULCER OF RIGHT CALF 11/25/2015 OLIVER COBOS MD, Ot Z68.43 BODY MASS INDEX (BMI) 50-59.9 , ADULT 11/25/2015 OLIVER COBOS MD, Ot E11.622 TYPE 2 DIABETES MELLITUS WITH OTHER SKIN 11/25/2015 OLIVER COBOS MD, Ot E66.01 MORBID (SEVERE) OBESITY DUE TO EXCESS CA 11/25/2015 OLIVER COBOS MD, Ot 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 11/25/2015 OLIVER COBOS MD, Ot L97.212 NON-PRESSURE CHRONIC ULCER OF RIGHT CALF 11/25/2015 OLIVER COBOS MD, Ot Z68.43 BODY MASS INDEX (BMI) 50-59.9 , ADULT 11/26/2015 OLIVER COBOS MD, Ot E11.622 TYPE 2 DIABETES MELLITUS WITH OTHER SKIN 11/26/2015 OLIVER COBOS MD, Ot E66.01 MORBID (SEVERE) OBESITY DUE TO EXCESS CA 11/26/2015 OLIVER COBOS MD, Ot 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 11/26/2015 OLIVER COBOS MD, Ot L97.212 NON-PRESSURE CHRONIC ULCER OF RIGHT CALF 11/26/2015 OLIVER COBOS MD, Ot Z68.43 BODY MASS INDEX (BMI) 50-59.9 , ADULT 11/26/2015 OLIVER COBOS MD, Ot E11.622 TYPE 2 DIABETES MELLITUS WITH OTHER SKIN 11/26/2015 OLIVRE COBOS MD, Ot E66.01 MORBID (SEVERE) OBESITY DUE TO EXCESS CA 11/26/2015 OLIVER COBOS MD, Ot 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 11/26/2015 OLIVER COBOS MD, Ot L97.212 NON-PRESSURE CHRONIC ULCER OF RIGHT CALF 11/26/2015 OLIVER COBOS MD, Ot Z68.43 BODY MASS INDEX (BMI) 50-59.9 , ADULT 11/26/2015 OLIVER COBOS MD, Ot E11.622 TYPE 2 DIABETES MELLITUS WITH OTHER SKIN 11/26/2015 OLIVER COBOS MD, Ot E66.01 MORBID (SEVERE) OBESITY DUE TO EXCESS CA 11/26/2015 OLIVER COBOS MD, Ot 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 11/26/2015 OLIVER COBOS MD, Ot L97.212 NON-PRESSURE CHRONIC ULCER OF RIGHT CALF 11/26/2015 OLIVER COBOS MD, Ot Z68.43 BODY MASS INDEX (BMI) 50-59.9 , ADULT 11/27/2015 OLIVER COBOS MD, Ot E11.622 TYPE 2 DIABETES MELLITUS WITH OTHER SKIN 11/27/2015 OLIVER COBOS MD, Ot E66.01 MORBID (SEVERE) OBESITY DUE TO EXCESS CA 11/27/2015 OLIVER COBOS MD, Ot 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 11/27/2015 OLIVER COBOS MD, Ot L97.212 NON-PRESSURE CHRONIC ULCER OF RIGHT CALF 11/27/2015 OLIVER COBOS MD, Ot Z68.43 BODY MASS INDEX (BMI) 50-59.9 , ADULT 11/27/2015 OLIVER COBOS MD, Ot E11.622 TYPE 2 DIABETES MELLITUS WITH OTHER SKIN 11/27/2015 OLIVER COBOS MD, Ot E66.01 MORBID (SEVERE) OBESITY DUE TO EXCESS CA 11/27/2015 OLIVER COBOS MD, Ot 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 11/27/2015 OLIVER COBOS MD, Ot L97.212 NON-PRESSURE CHRONIC ULCER OF RIGHT CALF 11/27/2015 OLIVER COBOS MD, Ot Z68.43 BODY MASS INDEX (BMI) 50-59.9 , ADULT 11/28/2015 OLIVER COBOS MD, Ot E11.622 TYPE 2 DIABETES MELLITUS WITH OTHER SKIN 11/28/2015 OLIVER COBOS MD, Ot E66.01 MORBID (SEVERE) OBESITY DUE TO EXCESS CA 11/28/2015 OLIVER COBOS MD, Ot 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 11/28/2015 OLIVER COBOS MD, Ot L97.212 NON-PRESSURE CHRONIC ULCER OF RIGHT CALF 11/28/2015 OLIVER COBOS MD, Ot Z68.43 BODY MASS INDEX (BMI) 50-59.9 , ADULT 11/28/2015 OLIVER COBOS MD, Ot E11.622 TYPE 2 DIABETES MELLITUS WITH OTHER SKIN 11/28/2015 OLIVER COBOS MD, Ot E66.01 MORBID (SEVERE) OBESITY DUE TO EXCESS CA 11/28/2015 OLIVER COBOS MD, Ot 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 11/28/2015 OLIVER COBOS MD, Ot L97.212 NON-PRESSURE CHRONIC ULCER OF RIGHT CALF 11/28/2015 OLIVER COBOS MD, Ot Z68.43 BODY MASS INDEX (BMI) 50-59.9 , ADULT 11/28/2015 OLIVER COBOS MD, Ot E11.622 TYPE 2 DIABETES MELLITUS WITH OTHER SKIN 11/28/2015 OLIVER COBOS MD, Ot E66.01 MORBID (SEVERE) OBESITY DUE TO EXCESS CA 11/28/2015 OLIVER COBOS MD, Ot 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 11/28/2015 OLIVER COBOS MD, Ot L97.212 NON-PRESSURE CHRONIC ULCER OF RIGHT CALF 11/28/2015 OLIVER COBOS MD, Ot Z68.43 BODY MASS INDEX (BMI) 50-59.9 , ADULT 11/29/2015 OLIVER COBOS MD, Ot E11.622 TYPE 2 DIABETES MELLITUS WITH OTHER SKIN 11/29/2015 OLIVER COBOS MD, Ot E66.01 MORBID (SEVERE) OBESITY DUE TO EXCESS CA 11/29/2015 OLIVER COBOS MD, Ot 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 11/29/2015 OLIVER COBOS MD, Ot L97.212 NON-PRESSURE CHRONIC ULCER OF RIGHT CALF 11/29/2015 OLIVER COBOS MD, Ot Z68.43 BODY MASS INDEX (BMI) 50-59.9 , ADULT 11/30/2015 OLIVER COBOS MD, Ot E11.622 TYPE 2 DIABETES MELLITUS WITH OTHER SKIN 11/30/2015 OLIVER COBOS MD, Ot E66.01 MORBID (SEVERE) OBESITY DUE TO EXCESS CA 11/30/2015 OLIVER COBOS MD, Ot 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 11/30/2015 OLIVER COBOS MD, Ot L97.212 NON-PRESSURE CHRONIC ULCER OF RIGHT CALF 11/30/2015 OLIVER COBOS MD, Ot Z68.43 BODY MASS INDEX (BMI) 50-59.9 , ADULT 12/01/2015 OLIVER COBOS MD, Ot E11.622 TYPE 2 DIABETES MELLITUS WITH OTHER SKIN 12/01/2015 OLIVER COBOS MD, Ot E66.01 MORBID (SEVERE) OBESITY DUE TO EXCESS CA 12/01/2015 OLIVER COBOS MD, Ot 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 12/01/2015 OLIVER COBOS MD, Ot L97.212 NON-PRESSURE CHRONIC ULCER OF RIGHT CALF 12/01/2015 OLIVER COBOS MD, Ot Z68.43 BODY MASS INDEX (BMI) 50-59.9 , ADULT 12/01/2015 OLIVER COBOS MD, Ot E11.622 TYPE 2 DIABETES MELLITUS WITH OTHER SKIN 12/01/2015 OLIVER COBOS MD, Ot E66.01 MORBID (SEVERE) OBESITY DUE TO EXCESS CA 12/01/2015 OLIVER COBOS MD, Ot 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 12/01/2015 OLIVER COBOS MD, Ot L97.212 NON-PRESSURE CHRONIC ULCER OF RIGHT CALF 12/01/2015 OLIVER COBOS MD, Ot Z68.43 BODY MASS INDEX (BMI) 50-59.9 , ADULT 12/01/2015 OLIVER COBOS MD, Ot E11.622 TYPE 2 DIABETES MELLITUS WITH OTHER SKIN 12/01/2015 OLIVER COBOS MD, Ot E66.01 MORBID (SEVERE) OBESITY DUE TO EXCESS CA 12/01/2015 OLIVER COBOS MD, Ot 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 12/01/2015 OLIVER COBOS MD, Ot L97.212 NON-PRESSURE CHRONIC ULCER OF RIGHT CALF 12/01/2015 OLIVER COBOS MD, Ot Z68.43 BODY MASS INDEX (BMI) 50-59.9 , ADULT 12/01/2015 OLIVER COBOS MD, Ot E11.622 TYPE 2 DIABETES MELLITUS WITH OTHER SKIN 12/01/2015 OLIVER COBOS MD, Ot E66.01 MORBID (SEVERE) OBESITY DUE TO EXCESS CA 12/01/2015 OLIVER COBOS MD, Ot 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 12/01/2015 OLIVER COBOS MD, Ot L97.212 NON-PRESSURE CHRONIC ULCER OF RIGHT CALF 12/01/2015 OLIVER COBOS MD, Ot Z68.43 BODY MASS INDEX (BMI) 50-59.9 , ADULT 12/02/2015 SHERRILL GAMBINO, JOHN Bello Ot V76.12 OT SCREEN MAMMO-MALIGN NEOPLASM OF ALISTAIR 12/02/2015 DIA CORDERO APRN Ot E11.622 TYPE 2 DIABETES MELLITUS WITH OTHER SKIN 12/02/2015 DIA CORDERO APRN Ot E66.01 MORBID (SEVERE) OBESITY DUE TO EXCESS CA 12/02/2015 DIA CORDERO APRN Ot 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 12/02/2015 DIA CORDERO APRN Ot L97.212 NON-PRESSURE CHRONIC ULCER OF RIGHT CALF 12/02/2015 OLIVER COBOS MD, Ot E11.622 TYPE 2 DIABETES MELLITUS WITH OTHER SKIN 12/02/2015 OLIVER COBOS MD, Ot E66.01 MORBID (SEVERE) OBESITY DUE TO EXCESS CA 12/02/2015 OLIVER COBOS MD, Ot 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 12/02/2015 OLIVER COBOS MD Ot L97.212 NON-PRESSURE CHRONIC ULCER OF RIGHT CALF 12/02/2015 OLIVER COBOS MD, Ot Z68.43 BODY MASS INDEX (BMI) 50-59.9 , ADULT 12/02/2015 SHERRILL GAMBINO, JOHN Bello Ot D64.9 ANEMIA, UNSPECIFIED 12/02/2015 OLIVER COBOS MD, Ot E11.622 TYPE 2 DIABETES MELLITUS WITH OTHER SKIN 12/02/2015 OLIVER COBOS MD Ot E66.01 MORBID (SEVERE) OBESITY DUE TO EXCESS CA 12/02/2015 OLIVER COBOS MD, Ot 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 12/02/2015 OLIVER COBOS MD Ot L97.212 NON-PRESSURE CHRONIC ULCER OF RIGHT CALF 12/02/2015 OLIVER COBOS MD, Ot E11.622 TYPE 2 DIABETES MELLITUS WITH OTHER SKIN 12/02/2015 OLIVER COBOS MD Ot E66.01 MORBID (SEVERE) OBESITY DUE TO EXCESS CA 12/02/2015 OLIVER COBOS MD Ot 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 12/02/2015 OLIVER COBOS MD Ot L97.212 NON-PRESSURE CHRONIC ULCER OF RIGHT CALF 12/02/2015 OLIVER COBOS MD, Ot E11.622 TYPE 2 DIABETES MELLITUS WITH OTHER SKIN 12/02/2015 OLIVER COBOS MD Ot E66.01 MORBID (SEVERE) OBESITY DUE TO EXCESS CA 12/02/2015 OLIVER COBOS MD, Ot 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 12/02/2015 OLIVER COBOS MD Ot L97.212 NON-PRESSURE CHRONIC ULCER OF RIGHT CALF 12/02/2015 OLIVER COBOS MD, Ot Z68.43 BODY MASS INDEX (BMI) 50-59.9 , ADULT 12/02/2015 OLIVER COBOS MD, Ot E11.622 TYPE 2 DIABETES MELLITUS WITH OTHER SKIN 12/02/2015 OLIVER COBOS MD, Ot E66.01 MORBID (SEVERE) OBESITY DUE TO EXCESS CA 12/02/2015 OLIVER COBOS MD, Ot 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 12/02/2015 OLIVER COBOS MD, Ot L97.212 NON-PRESSURE CHRONIC ULCER OF RIGHT CALF 12/02/2015 OLIVER COBOS MD, Ot Z68.43 BODY MASS INDEX (BMI) 50-59.9 , ADULT 12/03/2015 OLIVER COBOS MD, Ot E11.622 TYPE 2 DIABETES MELLITUS WITH OTHER SKIN 12/03/2015 OLIVER COBOS MD, Ot E66.01 MORBID (SEVERE) OBESITY DUE TO EXCESS CA 12/03/2015 OLIVER COBOS MD, Ot 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 12/03/2015 OLIVER COBOS MD, Ot L97.212 NON-PRESSURE CHRONIC ULCER OF RIGHT CALF 12/03/2015 OLIVER COBOS MD, Ot Z68.43 BODY MASS INDEX (BMI) 50-59.9 , ADULT 12/03/2015 OLIVER COBOS MD, Ot E11.622 TYPE 2 DIABETES MELLITUS WITH OTHER SKIN 12/03/2015 OLIVER COBOS MD, Ot E66.01 MORBID (SEVERE) OBESITY DUE TO EXCESS CA 12/03/2015 OLIVER COBOS MD, Ot 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 12/03/2015 OLIVER COBOS MD, Ot L97.212 NON-PRESSURE CHRONIC ULCER OF RIGHT CALF 12/03/2015 OLIVER COBOS MD, Ot Z68.43 BODY MASS INDEX (BMI) 50-59.9 , ADULT 12/03/2015 OLIVER COBOS MD, Ot E11.622 TYPE 2 DIABETES MELLITUS WITH OTHER SKIN 12/03/2015 OLIVER OCBOS MD, Ot E66.01 MORBID (SEVERE) OBESITY DUE TO EXCESS CA 12/03/2015 OLIVER COBOS MD, Ot 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 12/03/2015 OLIVER COBOS MD, Ot L97.212 NON-PRESSURE CHRONIC ULCER OF RIGHT CALF 12/03/2015 OLIVER COBOS MD, Ot Z68.43 BODY MASS INDEX (BMI) 50-59.9 , ADULT 12/04/2015 OLIVER COBOS MD, Ot E11.622 TYPE 2 DIABETES MELLITUS WITH OTHER SKIN 12/04/2015 OILVER COBOS MD, Ot E66.01 MORBID (SEVERE) OBESITY DUE TO EXCESS CA 12/04/2015 OLIVER COBOS MD, Ot 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 12/04/2015 OLIVER COBOS MD, Ot L97.212 NON-PRESSURE CHRONIC ULCER OF RIGHT CALF 12/04/2015 OLIVER COBOS MD, Ot Z68.43 BODY MASS INDEX (BMI) 50-59.9 , ADULT 12/04/2015 OLIVER COBOS MD, Ot E11.622 TYPE 2 DIABETES MELLITUS WITH OTHER SKIN 12/04/2015 OLIVER COBOS MD, Ot E66.01 MORBID (SEVERE) OBESITY DUE TO EXCESS CA 12/04/2015 OLIVER COBOS MD, Ot 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 12/04/2015 OLIVER COBOS MD, Ot L97.212 NON-PRESSURE CHRONIC ULCER OF RIGHT CALF 12/04/2015 OLIVER COBOS MD, Ot Z68.43 BODY MASS INDEX (BMI) 50-59.9 , ADULT 12/05/2015 OLIVER COBOS MD, Ot E11.622 TYPE 2 DIABETES MELLITUS WITH OTHER SKIN 12/05/2015 OLIVER COBOS MD, Ot E66.01 MORBID (SEVERE) OBESITY DUE TO EXCESS CA 12/05/2015 OLIVER COBOS MD, Ot 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 12/05/2015 OLIVER COBOS MD, Ot L97.212 NON-PRESSURE CHRONIC ULCER OF RIGHT CALF 12/05/2015 OLIVER COBOS MD, Ot Z68.43 BODY MASS INDEX (BMI) 50-59.9 , ADULT 12/05/2015 OLIVER COBOS MD, Ot E11.622 TYPE 2 DIABETES MELLITUS WITH OTHER SKIN 12/05/2015 OLIVER COBOS MD, Ot E66.01 MORBID (SEVERE) OBESITY DUE TO EXCESS CA 12/05/2015 OLIVER COBOS MD, Ot 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 12/05/2015 OLIVER COBOS MD, Ot L97.212 NON-PRESSURE CHRONIC ULCER OF RIGHT CALF 12/05/2015 OLIVER COBOS MD, Ot Z68.43 BODY MASS INDEX (BMI) 50-59.9 , ADULT 12/06/2015 OLIVER COBOS MD, Ot E11.622 TYPE 2 DIABETES MELLITUS WITH OTHER SKIN 12/06/2015 OLIVER COBOS MD, Ot E66.01 MORBID (SEVERE) OBESITY DUE TO EXCESS CA 12/06/2015 OLIVER COBOS MD, Ot 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 12/06/2015 OLIVER COBOS MD, Ot L97.212 NON-PRESSURE CHRONIC ULCER OF RIGHT CALF 12/06/2015 OLIVER COBOS MD, Ot Z68.43 BODY MASS INDEX (BMI) 50-59.9 , ADULT 12/06/2015 OLIVER COBOS MD, Ot E11.622 TYPE 2 DIABETES MELLITUS WITH OTHER SKIN 12/06/2015 OLIVER COBOS MD, Ot E66.01 MORBID (SEVERE) OBESITY DUE TO EXCESS CA 12/06/2015 OLIVER COBOS MD, Ot 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 12/06/2015 OLIVER COBOS MD, Ot L97.212 NON-PRESSURE CHRONIC ULCER OF RIGHT CALF 12/06/2015 OLIVER COBOS MD, Ot Z68.43 BODY MASS INDEX (BMI) 50-59.9 , ADULT 12/07/2015 SHERRILL GAMBINO, JOHN Bello Ot D64.9 ANEMIA, UNSPECIFIED 12/07/2015 OLIVER COBOS MD, Ot E11.622 TYPE 2 DIABETES MELLITUS WITH OTHER SKIN 12/07/2015 LOIVER COBOS MD, Ot E66.01 MORBID (SEVERE) OBESITY DUE TO EXCESS CA 12/07/2015 OLIVER COBOS MD, Ot 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 12/07/2015 OLIVER COBOS MD, Ot L97.212 NON-PRESSURE CHRONIC ULCER OF RIGHT CALF 12/07/2015 OLIVER COBOS MD, Ot Z68.43 BODY MASS INDEX (BMI) 50-59.9 , ADULT 12/07/2015 OLIVER COBOS MD, Ot E11.622 TYPE 2 DIABETES MELLITUS WITH OTHER SKIN 12/07/2015 OLIVER COBOS MD, Ot E66.01 MORBID (SEVERE) OBESITY DUE TO EXCESS CA 12/07/2015 OLIVER COBOS MD, Ot 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 12/07/2015 OLIVER COBOS MD, Ot L97.212 NON-PRESSURE CHRONIC ULCER OF RIGHT CALF 12/07/2015 OLIVER COBOS MD, Ot Z68.43 BODY MASS INDEX (BMI) 50-59.9 , ADULT 12/07/2015 OLIVER COBOS MD, Ot E11.622 TYPE 2 DIABETES MELLITUS WITH OTHER SKIN 12/07/2015 OLIVER COBOS MD, Ot E66.01 MORBID (SEVERE) OBESITY DUE TO EXCESS CA 12/07/2015 OLIVER COBOS MD, Ot 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 12/07/2015 OLIVER COBOS MD, Ot L97.212 NON-PRESSURE CHRONIC ULCER OF RIGHT CALF 12/07/2015 OLIVER COBOS MD, Ot Z68.43 BODY MASS INDEX (BMI) 50-59.9 , ADULT 12/08/2015 OLIVER COBOS MD, Ot E11.622 TYPE 2 DIABETES MELLITUS WITH OTHER SKIN 12/08/2015 OLIVER COBOS MD, Ot E66.01 MORBID (SEVERE) OBESITY DUE TO EXCESS CA 12/08/2015 OLIVER COBOS MD, Ot 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 12/08/2015 OLIVER COBOS MD, Ot L97.212 NON-PRESSURE CHRONIC ULCER OF RIGHT CALF 12/08/2015 OLIVER COBOS MD, Ot Z68.43 BODY MASS INDEX (BMI) 50-59.9 , ADULT 12/09/2015 OLIVER COBOS MD, Ot E11.622 TYPE 2 DIABETES MELLITUS WITH OTHER SKIN 12/09/2015 OLIVER COBOS MD, Ot E66.01 MORBID (SEVERE) OBESITY DUE TO EXCESS CA 12/09/2015 OLIVER COBOS MD, Ot 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 12/09/2015 OLIVER COBOS MD, Ot L97.212 NON-PRESSURE CHRONIC ULCER OF RIGHT CALF 12/09/2015 OLIVER COBOS MD, Ot Z68.43 BODY MASS INDEX (BMI) 50-59.9 , ADULT 12/10/2015 OLIVER COBOS MD, Ot E11.622 TYPE 2 DIABETES MELLITUS WITH OTHER SKIN 12/10/2015 OLIVER COBOS MD, Ot E66.01 MORBID (SEVERE) OBESITY DUE TO EXCESS CA 12/10/2015 OLIVER COBOS MD, Ot 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 12/10/2015 OLIVER COBOS MD, Ot L97.212 NON-PRESSURE CHRONIC ULCER OF RIGHT CALF 12/10/2015 OLIVER COBOS MD, Ot Z68.43 BODY MASS INDEX (BMI) 50-59.9 , ADULT 12/10/2015 OLIVER COBOS MD, Ot E11.622 TYPE 2 DIABETES MELLITUS WITH OTHER SKIN 12/10/2015 OLIVER COBOS MD, Ot E66.01 MORBID (SEVERE) OBESITY DUE TO EXCESS CA 12/10/2015 OLIVER COBOS MD, Ot 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 12/10/2015 OLIVER COBOS MD, Ot L97.212 NON-PRESSURE CHRONIC ULCER OF RIGHT CALF 12/10/2015 OLIVER COBOS MD, Ot Z68.43 BODY MASS INDEX (BMI) 50-59.9 , ADULT 12/10/2015 OLIVER COBOS MD, Ot E11.622 TYPE 2 DIABETES MELLITUS WITH OTHER SKIN 12/10/2015 OLIVER COBOS MD, Ot E66.01 MORBID (SEVERE) OBESITY DUE TO EXCESS CA 12/10/2015 OLIVER COBOS MD, Ot 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 12/10/2015 OLIVER COBOS MD, Ot L97.212 NON-PRESSURE CHRONIC ULCER OF RIGHT CALF 12/10/2015 OLIVER COBOS MD, Ot Z68.43 BODY MASS INDEX (BMI) 50-59.9 , ADULT 12/11/2015 OLIVER COBOS MD, Ot E11.622 TYPE 2 DIABETES MELLITUS WITH OTHER SKIN 12/11/2015 OLIVER COBOS MD, Ot E66.01 MORBID (SEVERE) OBESITY DUE TO EXCESS CA 12/11/2015 OLIVER COBOS MD, Ot 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 12/11/2015 OLIVER COBOS MD, Ot L97.212 NON-PRESSURE CHRONIC ULCER OF RIGHT CALF 12/11/2015 OLIVER COBOS MD, Ot Z68.43 BODY MASS INDEX (BMI) 50-59.9 , ADULT 12/11/2015 OLIVER COBOS MD, Ot E11.622 TYPE 2 DIABETES MELLITUS WITH OTHER SKIN 12/11/2015 OLIVER COBOS MD, Ot E66.01 MORBID (SEVERE) OBESITY DUE TO EXCESS CA 12/11/2015 OLIVER COBOS MD, Ot 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 12/11/2015 OLIVER COBOS MD, Ot L97.212 NON-PRESSURE CHRONIC ULCER OF RIGHT CALF 12/11/2015 OLIVER COBOS MD, Ot Z68.43 BODY MASS INDEX (BMI) 50-59.9 , ADULT 12/12/2015 OLIVER COBOS MD, Ot E11.622 TYPE 2 DIABETES MELLITUS WITH OTHER SKIN 12/12/2015 OLIVER COBOS MD, Ot E66.01 MORBID (SEVERE) OBESITY DUE TO EXCESS CA 12/12/2015 OLIVER COBOS MD, Ot 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 12/12/2015 OLIVER COBOS MD, Ot L97.212 NON-PRESSURE CHRONIC ULCER OF RIGHT CALF 12/12/2015 OLIVER COBOS MD, Ot Z68.43 BODY MASS INDEX (BMI) 50-59.9 , ADULT 12/12/2015 OLIVER COBOS MD, Ot E11.622 TYPE 2 DIABETES MELLITUS WITH OTHER SKIN 12/12/2015 OLIVER COBOS MD, Ot E66.01 MORBID (SEVERE) OBESITY DUE TO EXCESS CA 12/12/2015 OLIVER COBOS MD, Ot 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 12/12/2015 OLIVER COBOS MD, Ot L97.212 NON-PRESSURE CHRONIC ULCER OF RIGHT CALF 12/12/2015 OLIVER COBOS MD, Ot Z68.43 BODY MASS INDEX (BMI) 50-59.9 , ADULT 12/13/2015 OLIVER COBOS MD, Ot E11.622 TYPE 2 DIABETES MELLITUS WITH OTHER SKIN 12/13/2015 OLIVER COBOS MD, Ot E66.01 MORBID (SEVERE) OBESITY DUE TO EXCESS CA 12/13/2015 OLIVER COBOS MD, Ot 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 12/13/2015 OLIVER COBOS MD, Ot L97.212 NON-PRESSURE CHRONIC ULCER OF RIGHT CALF 12/13/2015 OLIVER COBOS MD, Ot Z68.43 BODY MASS INDEX (BMI) 50-59.9 , ADULT 12/13/2015 OILVER COBOS MD, Ot E11.622 TYPE 2 DIABETES MELLITUS WITH OTHER SKIN 12/13/2015 OLIVER COBOS MD, Ot E66.01 MORBID (SEVERE) OBESITY DUE TO EXCESS CA 12/13/2015 OLIVER COBOS MD, Ot 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 12/13/2015 OLIVER COBOS MD, Ot L97.212 NON-PRESSURE CHRONIC ULCER OF RIGHT CALF 12/13/2015 OLIVER COBOS MD, Ot Z68.43 BODY MASS INDEX (BMI) 50-59.9 , ADULT 12/13/2015 OLIVER COBOS MD, Ot E11.622 TYPE 2 DIABETES MELLITUS WITH OTHER SKIN 12/13/2015 OLIVER COBOS MD, Ot E66.01 MORBID (SEVERE) OBESITY DUE TO EXCESS CA 12/13/2015 OLIVER COBOS MD, Ot 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 12/13/2015 OLIVER COBOS MD, Ot L97.212 NON-PRESSURE CHRONIC ULCER OF RIGHT CALF 12/13/2015 OLIVER COBOS MD, Ot Z68.43 BODY MASS INDEX (BMI) 50-59.9 , ADULT 12/14/2015 OLIVER COBOS MD, Ot E11.622 TYPE 2 DIABETES MELLITUS WITH OTHER SKIN 12/14/2015 OLIVER COBOS MD, Ot E66.01 MORBID (SEVERE) OBESITY DUE TO EXCESS CA 12/14/2015 OLIVER COBOS MD, Ot 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 12/14/2015 OLIVER COBOS MD, Ot L97.212 NON-PRESSURE CHRONIC ULCER OF RIGHT CALF 12/14/2015 OLIVER COBOS MD, Ot Z68.43 BODY MASS INDEX (BMI) 50-59.9 , ADULT 12/21/2015 OLIVER COBOS MD, Ot E11.622 TYPE 2 DIABETES MELLITUS WITH OTHER SKIN 12/21/2015 OLIVER COBOS MD, Ot E66.01 MORBID (SEVERE) OBESITY DUE TO EXCESS CA 12/21/2015 OLIVER COBOS MD, Ot 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 12/21/2015 OLIVER COBOS MD, Ot L97.212 NON-PRESSURE CHRONIC ULCER OF RIGHT CALF 12/21/2015 OLIVER COBOS MD, Ot Z68.43 BODY MASS INDEX (BMI) 50-59.9 , ADULT 12/22/2015 OLIVER COBOS MD, Ot E11.622 TYPE 2 DIABETES MELLITUS WITH OTHER SKIN 12/22/2015 OLIVER COBOS MD, Ot E66.01 MORBID (SEVERE) OBESITY DUE TO EXCESS CA 12/22/2015 OLIVER COBOS MD, Ot 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 12/22/2015 OLIVER COBOS MD, Ot L97.212 NON-PRESSURE CHRONIC ULCER OF RIGHT CALF 12/22/2015 OLIVER COBOS MD, Ot Z68.43 BODY MASS INDEX (BMI) 50-59.9 , ADULT 12/22/2015 SHERRILL GAMBINO, JOHN Bello Ot D64.9 ANEMIA, UNSPECIFIED 12/26/2015 OLIVER COBOS MD, Ot E11.622 TYPE 2 DIABETES MELLITUS WITH OTHER SKIN 12/26/2015 OLIVER COBOS MD, Ot E66.01 MORBID (SEVERE) OBESITY DUE TO EXCESS CA 12/26/2015 OLIVER COBOS MD, Ot 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 12/26/2015 OLIVER COBOS MD, Ot L97.212 NON-PRESSURE CHRONIC ULCER OF RIGHT CALF 12/26/2015 OLIVER COBOS MD, Ot E11.622 TYPE 2 DIABETES MELLITUS WITH OTHER SKIN 12/26/2015 OLIVER COBOS MD, Ot E66.01 MORBID (SEVERE) OBESITY DUE TO EXCESS CA 12/26/2015 OLIVER COBOS MD, Ot 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 12/26/2015 OLIVER COBOS MD, Ot L97.212 NON-PRESSURE CHRONIC ULCER OF RIGHT CALF 12/27/2015 OLIVER COBOS MD, Ot E11.622 TYPE 2 DIABETES MELLITUS WITH OTHER SKIN 12/27/2015 OLIVER COBOS MD, Ot E66.01 MORBID (SEVERE) OBESITY DUE TO EXCESS CA 12/27/2015 OLIVER COBOS MD, Ot 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 12/27/2015 OLIVER COBOS MD, Ot L97.212 NON-PRESSURE CHRONIC ULCER OF RIGHT CALF 12/27/2015 OLIVER COBOS MD, Ot Z68.43 BODY MASS INDEX (BMI) 50-59.9 , ADULT 12/27/2015 JOHN MCCARTNEY MD Ot D64.9 ANEMIA, UNSPECIFIED 12/30/2015 OLIVER COBOS MD, Ot E11.622 TYPE 2 DIABETES MELLITUS WITH OTHER SKIN 12/30/2015 OLIVER COBOS MD, Ot E66.01 MORBID (SEVERE) OBESITY DUE TO EXCESS CA 12/30/2015 OLIVER COBOS MD, Ot 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 12/30/2015 OLIVER COBOS MD, Ot L97.212 NON-PRESSURE CHRONIC ULCER OF RIGHT CALF 12/30/2015 OLIVER COBOS MD, Ot Z68.43 BODY MASS INDEX (BMI) 50-59.9 , ADULT 01/06/2016 OLIVER COBOS MD, Ot E11.622 TYPE 2 DIABETES MELLITUS WITH OTHER SKIN 01/06/2016 OLIVER COBOS MD, Ot E66.01 MORBID (SEVERE) OBESITY DUE TO EXCESS CA 01/06/2016 OLIVER COBOS MD, Ot 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 01/06/2016 OLIVER COBOS MD, Ot L97.212 NON-PRESSURE CHRONIC ULCER OF RIGHT CALF 01/06/2016 OLIVER COBOS MD, Ot Z68.43 BODY MASS INDEX (BMI) 50-59.9 , ADULT 01/12/2016 OLIVER COBOS MD, Ot E11.622 TYPE 2 DIABETES MELLITUS WITH OTHER SKIN 01/12/2016 OLIVER COBOS MD, Ot E66.01 MORBID (SEVERE) OBESITY DUE TO EXCESS CA 01/12/2016 OLIVER COBOS MD, Ot 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 01/12/2016 OLIVER COBOS MD, Ot L97.212 NON-PRESSURE CHRONIC ULCER OF RIGHT CALF 01/12/2016 OLIVER COBOS MD, Ot Z68.43 BODY MASS INDEX (BMI) 50-59.9 , ADULT 02/14/2016 OLIVER COBOS MD, Ot E11.622 TYPE 2 DIABETES MELLITUS WITH OTHER SKIN 02/14/2016 OLIVER COBOS MD, Ot E66.01 MORBID (SEVERE) OBESITY DUE TO EXCESS CA 02/14/2016 OLIVER COBOS MD, Ot 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 02/14/2016 OLIVER COBOS MD, Ot L97.212 NON-PRESSURE CHRONIC ULCER OF RIGHT CALF 02/14/2016 OLIVER COBOS MD, Ot Z68.43 BODY MASS INDEX (BMI) 50-59.9 , ADULT 02/15/2016 OLIVER COBOS MD, Ot E11.622 TYPE 2 DIABETES MELLITUS WITH OTHER SKIN 02/15/2016 OLIVER COBOS MD, Ot E66.01 MORBID (SEVERE) OBESITY DUE TO EXCESS CA 02/15/2016 OLIVER COBOS MD, Ot 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 02/15/2016 OLIVER COBOS MD, Ot L97.212 NON-PRESSURE CHRONIC ULCER OF RIGHT CALF 02/15/2016 OLIVER COBOS MD, Ot Z68.43 BODY MASS INDEX (BMI) 50-59.9 , ADULT 02/22/2016 OLIVER COBOS MD, Ot E11.622 TYPE 2 DIABETES MELLITUS WITH OTHER SKIN 02/22/2016 OLIVER COBOS MD, Ot E66.01 MORBID (SEVERE) OBESITY DUE TO EXCESS CA 02/22/2016 OLIVER COBOS MD, Ot 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 02/22/2016 OLIVER COBOS MD, Ot L97.212 NON-PRESSURE CHRONIC ULCER OF RIGHT CALF 02/22/2016 OLIVER COBOS MD, Ot Z68.43 BODY MASS INDEX (BMI) 50-59.9 , ADULT 02/22/2016 OLIVER COBOS MD, Ot E11.622 TYPE 2 DIABETES MELLITUS WITH OTHER SKIN 02/22/2016 OLIVER COBOS MD, Ot E66.01 MORBID (SEVERE) OBESITY DUE TO EXCESS CA 02/22/2016 OLIVER COBOS MD, Ot 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 02/22/2016 OLIVER COBOS MD, Ot L97.212 NON-PRESSURE CHRONIC ULCER OF RIGHT CALF 02/22/2016 OLIVER COBOS MD, Ot Z68.43 BODY MASS INDEX (BMI) 50-59.9 , ADULT 03/07/2016 OLIVER COBOS MD, Ot E11.622 TYPE 2 DIABETES MELLITUS WITH OTHER SKIN 03/07/2016 OLIVER COBOS MD, Ot E66.01 MORBID (SEVERE) OBESITY DUE TO EXCESS CA 03/07/2016 OLIVER COBOS MD, Ot 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 03/07/2016 OLIVER COBOS MD, Ot L97.212 NON-PRESSURE CHRONIC ULCER OF RIGHT CALF 03/07/2016 OLIVER COBOS MD, Ot Z68.43 BODY MASS INDEX (BMI) 50-59.9 , ADULT 03/07/2016 OLIVER COBOS MD, Ot E11.622 TYPE 2 DIABETES MELLITUS WITH OTHER SKIN 03/07/2016 OLIVER COBOS MD, Ot E66.01 MORBID (SEVERE) OBESITY DUE TO EXCESS CA 03/07/2016 OLIVER COBOS MD, Ot 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 03/07/2016 OLIVER COBOS MD, Ot L97.212 NON-PRESSURE CHRONIC ULCER OF RIGHT CALF 03/07/2016 CHANDRIKA GAMBINO, OLIVER Montanez Ot Z68.43 BODY MASS INDEX (BMI) 50-59.9 , ADULT 03/16/2016 OLIVER COBOS MD, Ot Z45.2 ENCOUNTER FOR ADJUSTMENT AND MANAGEMENT 03/27/2016 DEN, BOBAN N Ot D64.9 ANEMIA, UNSPECIFIED 03/27/2016 DEN, BOBAN N Ot E11.9 TYPE 2 DIABETES MELLITUS WITHOUT COMPLIC 04/04/2016 DEN, BOBAN N Ot D64.9 ANEMIA, UNSPECIFIED 04/04/2016 DEN, BOBAN N Ot E11.9 TYPE 2 DIABETES MELLITUS WITHOUT COMPLIC 04/18/2016 DEN, BOBAN N Ot D64.9 ANEMIA, UNSPECIFIED 04/18/2016 DEN, BOBAN N Ot E11.9 TYPE 2 DIABETES MELLITUS WITHOUT COMPLIC 05/24/2016 DEN, BOBAN N Ot D64.9 ANEMIA, UNSPECIFIED 05/24/2016 DEN, BOBAN N Ot E11.9 TYPE 2 DIABETES MELLITUS WITHOUT COMPLIC 07/16/2016 DEN, BOBAN N Ot D64.9 ANEMIA, UNSPECIFIED 07/16/2016 DEN, BOBAN N Ot E11.9 TYPE 2 DIABETES MELLITUS WITHOUT COMPLIC 07/20/2016 DEN, BOBAN N Ot D64.9 ANEMIA, UNSPECIFIED 07/20/2016 DEN, BOBAN N Ot E11.9 TYPE 2 DIABETES MELLITUS WITHOUT COMPLIC 07/31/2016 SHERRILL GAMBINO, JOHN Bello Ot E11.65 TYPE 2 DIABETES MELLITUS WITH HYPERGLYCE 07/31/2016 SHERRILL GAMBINO, JOHN Bello Ot E55.9 VITAMIN D DEFICIENCY, UNSPECIFIED 07/31/2016 SHERRILL GAMBINO, JOHN Bello Ot E78.5 HYPERLIPIDEMIA, UNSPECIFIED 07/31/2016 JOHN MCCARTNEY MD Ot E11.65 TYPE 2 DIABETES MELLITUS WITH HYPERGLYCE 07/31/2016 JOHN MCCARTNEY MD Ot E55.9 VITAMIN D DEFICIENCY, UNSPECIFIED 07/31/2016 JOHN MCCARTNEY MD Ot E78.5 HYPERLIPIDEMIA, UNSPECIFIED 07/31/2016 JOHN MCCARTNEY MD Ot E11.65 TYPE 2 DIABETES MELLITUS WITH HYPERGLYCE 07/31/2016 JOHN MCCARTNEY MD Ot E55.9 VITAMIN D DEFICIENCY, UNSPECIFIED 07/31/2016 JOHN MCCARTNEY MD Ot E78.5 HYPERLIPIDEMIA, UNSPECIFIED 08/22/2016 ROSALEE CRENSHAW Chu Ot D64.9 ANEMIA, UNSPECIFIED 08/22/2016 ROSALEE CRENSHAW Chu Ot E11.9 TYPE 2 DIABETES MELLITUS WITHOUT COMPLIC 08/23/2016 ROSALEE CRENSHAW Chu Ot D64.9 ANEMIA, UNSPECIFIED 08/23/2016 ROSALEE CRENSHAW N Ot E11.9 TYPE 2 DIABETES MELLITUS WITHOUT COMPLIC 08/29/2016 ROSALEE CRENSHAW Chu Ot D50.9 IRON DEFICIENCY ANEMIA, UNSPECIFIED 08/29/2016 ROSALEE CRENSHAW N Ot E11.9 TYPE 2 DIABETES MELLITUS WITHOUT COMPLIC 08/29/2016 ROSALEE CRENSHAW N Ot E78.2 MIXED HYPERLIPIDEMIA 08/29/2016 ROSALEE CRENSHAW Chu Ot I10 ESSENTIAL (PRIMARY) HYPERTENSION 08/29/2016 ROSALEE CRENSHAW Chu Ot R60.0 LOCALIZED EDEMA 08/29/2016 DEN ROSALEE Chu Ot Z79.84 PENITENTIARY (CURRENT) USE OF ORAL HYPOGLYC 08/29/2016 DENZURDOBRISSA Chu Ot Z79.899 OTHER EXTRUSION LINE OPERATOR (CURRENT) DRUG THERAPY 08/29/2016 DEN ROSALEE Chu Ot Z82.49 FAMILY HX OF ISCHEM HEART DIS AND OTH DI 08/29/2016 DEN ROSALEE Chu Ot Z85.820 PERSONAL HISTORY OF MALIGNANT MELANOMA O 09/03/2016 SHERRILL GAMBINO, JOHN Bello Ot E11.9 TYPE 2 DIABETES MELLITUS WITHOUT COMPLIC 09/03/2016 SHERRILL GAMBINO, JOHN Bello Ot E55.9 VITAMIN D DEFICIENCY, UNSPECIFIED 09/03/2016 SHERRILL GAMBINO, JOHN Bello Ot E78.5 HYPERLIPIDEMIA, UNSPECIFIED 09/03/2016 SHERRILL GAMBINO, JOHN eBllo Ot Z11.59 ENCOUNTER FOR SCREENING FOR OTHER VIRAL 10/15/2016 ROSALEE CRENSHAW Chu Ot D50.9 IRON DEFICIENCY ANEMIA, UNSPECIFIED 10/15/2016 DENZURDOBRISSA Chu Ot E11.9 TYPE 2 DIABETES MELLITUS WITHOUT COMPLIC 10/15/2016 DENZURDOBRISSA Chu Ot E78.2 MIXED HYPERLIPIDEMIA 10/15/2016 DEN ROSALEE N Ot I10 ESSENTIAL (PRIMARY) HYPERTENSION 10/15/2016 DEN ROSALEE N Ot R60.0 LOCALIZED EDEMA 10/15/2016 DENZURDOBRISSA N Ot 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 10/15/2016 ROSALEE CRENSHAW N Ot Z79.899 OTHER EXTRUSION LINE OPERATOR (CURRENT) DRUG THERAPY 10/15/2016 DEN ROSALEE Sage Ot Z82.49 FAMILY HX OF ISCHEM HEART DIS AND OTH DI 10/15/2016 DENROSALEE Ot Z85.820 PERSONAL HISTORY OF MALIGNANT MELANOMA O 10/19/2016 DENROSALEE Ot D50.9 IRON DEFICIENCY ANEMIA, UNSPECIFIED 10/19/2016 DENROSALEE Ot E11.9 TYPE 2 DIABETES MELLITUS WITHOUT COMPLIC 10/19/2016 DENROSALEE N Ot E78.2 MIXED HYPERLIPIDEMIA 10/19/2016 DENROSALEE N Ot I10 ESSENTIAL (PRIMARY) HYPERTENSION 10/19/2016 DENROSALEE Ot R60.0 LOCALIZED EDEMA 10/19/2016 DENROSALEE Ot 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 10/19/2016 DENROSALEE Ot Z79.899 OTHER PENITENTIARY (CURRENT) DRUG THERAPY 10/19/2016 DENROSALEE Ot Z82.49 FAMILY HX OF ISCHEM HEART DIS AND OTH DI 10/19/2016 DENROSALEE Ot Z85.820 PERSONAL HISTORY OF MALIGNANT MELANOMA O 11/22/2016 SHERRILL GAMBINO, JOHN Bello Ot E11.9 TYPE 2 DIABETES MELLITUS WITHOUT COMPLIC 11/23/2016 DENROSALEE Ot D50.9 IRON DEFICIENCY ANEMIA, UNSPECIFIED 11/23/2016 DENROSALEE Ot E11.9 TYPE 2 DIABETES MELLITUS WITHOUT COMPLIC 11/23/2016 DENROSALEE Ot E78.2 MIXED HYPERLIPIDEMIA 11/23/2016 DENROSALEE Ot I10 ESSENTIAL (PRIMARY) HYPERTENSION 11/23/2016 DENROSALEE N Ot R60.0 LOCALIZED EDEMA 11/23/2016 ROSALEE CRENSHAW N Ot Z79.84 PENITENTIARY (CURRENT) USE OF ORAL HYPOGLYC 11/23/2016 DENROSALEE N Ot Z79.899 OTHER PENITENTIARY (CURRENT) DRUG THERAPY 11/23/2016 DENROSALEE Ot Z82.49 FAMILY HX OF ISCHEM HEART DIS AND OTH DI 11/23/2016 ROSALEE CRENSHAW Ot Z85.820 PERSONAL HISTORY OF MALIGNANT MELANOMA O 11/23/2016 DEN ROSALEE Sage Ot D64.9 ANEMIA, UNSPECIFIED 11/23/2016 DENROSALEE Ot E11.9 TYPE 2 DIABETES MELLITUS WITHOUT COMPLIC 11/24/2016 SHERRILL GAMBINO, JOHN Bello Ot E11.9 TYPE 2 DIABETES MELLITUS WITHOUT COMPLIC 12/06/2016 DENROSALEE Ot D50.9 IRON DEFICIENCY ANEMIA, UNSPECIFIED 12/06/2016 DENROSALEE Ot E11.9 TYPE 2 DIABETES MELLITUS WITHOUT COMPLIC 12/06/2016 DENROSALEE N Ot E78.2 MIXED HYPERLIPIDEMIA 12/06/2016 DENROSALEE N Ot I10 ESSENTIAL (PRIMARY) HYPERTENSION 12/06/2016 DENROSALEE N Ot R60.0 LOCALIZED EDEMA 12/06/2016 DENROSALEE N Ot 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 12/06/2016 DENROSALEE N Ot Z79.899 OTHER EXTRUSION LINE OPERATOR (CURRENT) DRUG THERAPY 12/06/2016 DENROSALEE N Ot Z82.49 FAMILY HX OF ISCHEM HEART DIS AND OTH DI 12/06/2016 DENROSALEE N Ot Z85.820 PERSONAL HISTORY OF MALIGNANT MELANOMA O 12/22/2016 DENROSALEE N Ot D50.9 IRON DEFICIENCY ANEMIA, UNSPECIFIED 12/22/2016 DENROSALEE Ot E11.9 TYPE 2 DIABETES MELLITUS WITHOUT COMPLIC 12/22/2016 DENROSALEE N Ot E78.2 MIXED HYPERLIPIDEMIA 12/22/2016 DENROSALEE N Ot I10 ESSENTIAL (PRIMARY) HYPERTENSION 12/22/2016 DENROSALEE N Ot R60.0 LOCALIZED EDEMA 12/22/2016 DENROSALEE N Ot 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 12/22/2016 DENROSALEE N Ot Z79.899 OTHER PENITENTIARY (CURRENT) DRUG THERAPY 12/22/2016 ROSALEE CRENSHAW N Ot Z82.49 FAMILY HX OF ISCHEM HEART DIS AND OTH DI 12/22/2016 DENROSALEE N Ot Z85.820 PERSONAL HISTORY OF MALIGNANT MELANOMA O 12/27/2016 DENROSALEE Ot D50.9 IRON DEFICIENCY ANEMIA, UNSPECIFIED 12/27/2016 DENROSALEE N Ot E11.9 TYPE 2 DIABETES MELLITUS WITHOUT COMPLIC 12/27/2016 DEN, BOBAN N Ot E78.2 MIXED HYPERLIPIDEMIA 12/27/2016 DEN, BOBAN N Ot I10 ESSENTIAL (PRIMARY) HYPERTENSION 12/27/2016 DEN, BOBAN N Ot R60.0 LOCALIZED EDEMA 12/27/2016 DEN, BOBAN N Ot Z79.84 PENITENTIARY (CURRENT) USE OF ORAL HYPOGLYC 12/27/2016 DEN, BOBAN N Ot Z79.899 OTHER EXTRUSION LINE OPERATOR (CURRENT) DRUG THERAPY 12/27/2016 DEN, BOBAN N Ot Z82.49 FAMILY HX OF ISCHEM HEART DIS AND OTH DI 12/27/2016 DEN, BOBAN N Ot Z85.820 PERSONAL HISTORY OF MALIGNANT MELANOMA O 01/30/2017 SHERRILL GAMBINO, JOHN Bello Ot E11.9 TYPE 2 DIABETES MELLITUS WITHOUT COMPLIC 03/28/2017 DEN, BOBAN N Ot D50.9 IRON DEFICIENCY ANEMIA, UNSPECIFIED 03/28/2017 DEN, BOBAN N Ot E11.9 TYPE 2 DIABETES MELLITUS WITHOUT COMPLIC 03/28/2017 DEN, BOBAN N Ot E78.2 MIXED HYPERLIPIDEMIA 03/28/2017 DEN, BOBAN N Ot I10 ESSENTIAL (PRIMARY) HYPERTENSION 03/28/2017 DEN, BOBAN N Ot R60.0 LOCALIZED EDEMA 03/28/2017 DEN, BOBAN N Ot 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 03/28/2017 DEN, BOBAN N Ot Z79.899 OTHER EXTRUSION LINE OPERATOR (CURRENT) DRUG THERAPY 03/28/2017 DEN, BOBAN N Ot Z82.49 FAMILY HX OF ISCHEM HEART DIS AND OTH DI 03/28/2017 DEN, BOBAN N Ot Z85.820 PERSONAL HISTORY OF MALIGNANT MELANOMA O 04/22/2017 JOHN MCCARTNEY MD, Ot E11.9 TYPE 2 DIABETES MELLITUS WITHOUT COMPLIC 04/22/2017 JOHN MCCARTNEY MD, Ot I10 ESSENTIAL (PRIMARY) HYPERTENSION 04/30/2017 DEN, BOBAN N Ot D50.9 IRON DEFICIENCY ANEMIA, UNSPECIFIED 04/30/2017 DEN, BOBAN N Ot E11.9 TYPE 2 DIABETES MELLITUS WITHOUT COMPLIC 04/30/2017 DEN, BOBAN N Ot E78.2 MIXED HYPERLIPIDEMIA 04/30/2017 DEN, BOBAN N Ot I10 ESSENTIAL (PRIMARY) HYPERTENSION 04/30/2017 DEN ROSALEE N Ot R60.0 LOCALIZED EDEMA 04/30/2017 DENROSALEE N Ot Z79.84 PENITENTIARY (CURRENT) USE OF ORAL HYPOGLYC 04/30/2017 DENROSALEE N Ot Z79.899 OTHER EXTRUSION LINE OPERATOR (CURRENT) DRUG THERAPY 04/30/2017 DENROSALEE N Ot Z82.49 FAMILY HX OF ISCHEM HEART DIS AND OTH DI 04/30/2017 DENROSALEE N Ot Z85.820 PERSONAL HISTORY OF MALIGNANT MELANOMA O 06/25/2017 DENROSALEE N Ot D50.9 IRON DEFICIENCY ANEMIA, UNSPECIFIED 06/25/2017 DENROSALEE N Ot E11.9 TYPE 2 DIABETES MELLITUS WITHOUT COMPLIC 06/25/2017 DNEROSALEE N Ot E78.2 MIXED HYPERLIPIDEMIA 06/25/2017 DENROSALEE N Ot I10 ESSENTIAL (PRIMARY) HYPERTENSION 06/25/2017 DENROSALEE N Ot R60.0 LOCALIZED EDEMA 06/25/2017 DENROSALEE N Ot Z79.84 PENITENTIARY (CURRENT) USE OF ORAL HYPOGLYC 06/25/2017 DENROSALEE N Ot Z79.899 OTHER EXTRUSION LINE OPERATOR (CURRENT) DRUG THERAPY 06/25/2017 DENROSALEE N Ot Z82.49 FAMILY HX OF ISCHEM HEART DIS AND OTH DI 06/25/2017 DENROSALEE N Ot Z85.820 PERSONAL HISTORY OF MALIGNANT MELANOMA O 06/26/2017 DENROSALEE N Ot D50.9 IRON DEFICIENCY ANEMIA, UNSPECIFIED 06/26/2017 DENROSALEE N Ot E11.9 TYPE 2 DIABETES MELLITUS WITHOUT COMPLIC 06/26/2017 DENROSALEE N Ot E78.2 MIXED HYPERLIPIDEMIA 06/26/2017 DEN BOBAN N Ot I10 ESSENTIAL (PRIMARY) HYPERTENSION 06/26/2017 DENROSALEE N Ot R60.0 LOCALIZED EDEMA 06/26/2017 DENRSOALEE N Ot 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 06/26/2017 DENROSALEE N Ot Z79.899 OTHER EXTRUSION LINE OPERATOR (CURRENT) DRUG THERAPY 06/26/2017 ROSALEE CRENSHAW N Ot Z82.49 FAMILY HX OF ISCHEM HEART DIS AND OTH DI 06/26/2017 ROSALEE CRENSHAW Ot Z85.820 PERSONAL HISTORY OF MALIGNANT MELANOMA O 06/27/2017 ROSALEE CRENSHAW Ot D50.9 IRON DEFICIENCY ANEMIA, UNSPECIFIED 06/27/2017 ROSALEE CRENSHAW Ot E11.9 TYPE 2 DIABETES MELLITUS WITHOUT COMPLIC 06/27/2017 ROSALEE CRENSHAW Ot E78.2 MIXED HYPERLIPIDEMIA 06/27/2017 ROSALEE CRENSHAW Ot I10 ESSENTIAL (PRIMARY) HYPERTENSION 06/27/2017 ROSALEE CRENSHAW Ot R60.0 LOCALIZED EDEMA 06/27/2017 ROSALEE CRENSHAW Ot 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 06/27/2017 ROSALEE CRENSHAW Chu Ot Z79.899 OTHER PENITENTIARY (CURRENT) DRUG THERAPY 06/27/2017 ROSALEE CRENSHAW Ot Z82.49 FAMILY HX OF ISCHEM HEART DIS AND OTH DI 06/27/2017 ROSALEE CRENSHAW Ot Z85.820 PERSONAL HISTORY OF MALIGNANT MELANOMA O 07/03/2017 JOHN MCCARTNEY MD Ot V76.12 OTH SCREEN MAMMO-MALIGN NEOPLASM OF ALISTAIR 07/03/2017 DIA CORDERO APRN Ot E11.622 TYPE 2 DIABETES MELLITUS WITH OTHER SKIN 07/03/2017 DIA CORDERO APRN Ot E66.01 MORBID (SEVERE) OBESITY DUE TO EXCESS CA 07/03/2017 DIA CORDERO APRN Ot 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 07/03/2017 DIA CORDERO APRN Ot L97.212 NON-PRESSURE CHRONIC ULCER OF RIGHT CALF 07/03/2017 JOHN MCCARTNEY MD Ot D64.9 ANEMIA, UNSPECIFIED 07/03/2017 OLIVER COBOS MD Ot E11.622 TYPE 2 DIABETES MELLITUS WITH OTHER SKIN 07/03/2017 OLIVER COBOS MD Ot E66.01 MORBID (SEVERE) OBESITY DUE TO EXCESS CA 07/03/2017 OLIVER COBOS MD Ot 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 07/03/2017 OLIVER COBOS MD Ot L97.212 NON-PRESSURE CHRONIC ULCER OF RIGHT CALF 07/03/2017 OLIVER COBOS MD Ot Z68.43 BODY MASS INDEX (BMI) 50-59.9 , ADULT 07/03/2017 CHANDRIKA GAMBINO, OLIVER Montanez Ot Z45.2 ENCOUNTER FOR ADJUSTMENT AND MANAGEMENT 07/03/2017 SHERRILL GAMBINO, JOHN Bello Ot E11.9 TYPE 2 DIABETES MELLITUS WITHOUT COMPLIC 07/03/2017 SHERRILL GAMBINO, JOHN Bello Ot E55.9 VITAMIN D DEFICIENCY, UNSPECIFIED 07/03/2017 SHERRILL GAMBINO, JOHN Bello Ot E78.5 HYPERLIPIDEMIA, UNSPECIFIED 07/03/2017 SHERRILL GAMBINO, JOHN Bello Ot Z11.59 ENCOUNTER FOR SCREENING FOR OTHER VIRAL 07/03/2017 SHERRILL GAMBINO, JOHN Bello Ot E11.9 TYPE 2 DIABETES MELLITUS WITHOUT COMPLIC 07/03/2017 JOHN MCCARTNEY MD, Ot E11.9 TYPE 2 DIABETES MELLITUS WITHOUT COMPLIC 07/03/2017 SHERRILL GAMBINO, JOHN Bello Ot I10 ESSENTIAL (PRIMARY) HYPERTENSION 07/03/2017 ROSALEE CRENSHAW Ot D50.9 IRON DEFICIENCY ANEMIA, UNSPECIFIED 07/03/2017 DENROSALEE Ot E11.9 TYPE 2 DIABETES MELLITUS WITHOUT COMPLIC 07/03/2017 ROSALEE CRENSHAW Ot E78.2 MIXED HYPERLIPIDEMIA 07/03/2017 ROSALEE CRENSHAW Ot I10 ESSENTIAL (PRIMARY) HYPERTENSION 07/03/2017 ROSALEE CRENSHAW Ot R60.0 LOCALIZED EDEMA 07/03/2017 ROSALEE CRENSHAW Ot Z79.84 PENITENTIARY (CURRENT) USE OF ORAL HYPOGLYC 07/03/2017 ROSALEE CRENSHAW Ot Z79.899 OTHER EXTRUSION LINE OPERATOR (CURRENT) DRUG THERAPY 07/03/2017 DENROSALEE Ot Z82.49 FAMILY HX OF ISCHEM HEART DIS AND OTH DI 07/03/2017 ROSALEE CRENSHAW Ot Z85.820 PERSONAL HISTORY OF MALIGNANT MELANOMA O 07/03/2017 TOMER PRESTON MD, Ot D50.9 IRON DEFICIENCY ANEMIA, UNSPECIFIED 07/03/2017 TOMER PRESTON MD, Ot E11.9 TYPE 2 DIABETES MELLITUS WITHOUT COMPLIC 07/03/2017 TOMER PRESTON MD, Ot E78.2 MIXED HYPERLIPIDEMIA 07/03/2017 TOMER PRESTON MD Ot I10 ESSENTIAL (PRIMARY) HYPERTENSION 07/03/2017 TOMER PRESTON MD Ot R60.0 LOCALIZED EDEMA 07/03/2017 TOMER PRESTON MD Ot 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 07/03/2017 TOMER PRESTON MD, Ot Z79.899 OTHER EXTRUSION LINE OPERATOR (CURRENT) DRUG THERAPY 07/03/2017 TOMER PRESTON MD, Ot Z82.49 FAMILY HX OF ISCHEM HEART DIS AND OTH DI 07/03/2017 TOMER PRESTON MD, Ot Z85.820 PERSONAL HISTORY OF MALIGNANT MELANOMA O 07/03/2017 JOHN MCCARTNEY MD, Ot V76.12 OTH SCREEN MAMMO-MALIGN NEOPLASM OF ALISTAIR 07/03/2017 DIA CORDERO APRN Ot E11.622 TYPE 2 DIABETES MELLITUS WITH OTHER SKIN 07/03/2017 DIA CORDERO APRN Ot E66.01 MORBID (SEVERE) OBESITY DUE TO EXCESS CA 07/03/2017 DIA CORDERO APRN Ot 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 07/03/2017 DIA CORDERO APRN Ot L97.212 NON-PRESSURE CHRONIC ULCER OF RIGHT CALF 07/03/2017 JOHN MCCARTNEY MD, Ot D64.9 ANEMIA, UNSPECIFIED 07/03/2017 LOIVER COBOS MD, Ot E11.622 TYPE 2 DIABETES MELLITUS WITH OTHER SKIN 07/03/2017 OLIVER COBOS MD Ot E66.01 MORBID (SEVERE) OBESITY DUE TO EXCESS CA 07/03/2017 OLIVER COBOS MD Ot 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 07/03/2017 OLIVER COBOS MD, Ot L97.212 NON-PRESSURE CHRONIC ULCER OF RIGHT CALF 07/03/2017 OLIVER COBOS MD Ot Z68.43 BODY MASS INDEX (BMI) 50-59.9 , ADULT 07/03/2017 OLIVER COBOS MD Ot Z45.2 ENCOUNTER FOR ADJUSTMENT AND MANAGEMENT 07/03/2017 JOHN MCCARTNEY MD, Ot E11.9 TYPE 2 DIABETES MELLITUS WITHOUT COMPLIC 07/03/2017 JOHN MCCARTNEY MD, Ot E55.9 VITAMIN D DEFICIENCY, UNSPECIFIED 07/03/2017 JOHN MCCARTNEY MD, Ot E78.5 HYPERLIPIDEMIA, UNSPECIFIED 07/03/2017 JOHN MCCARTNEY MD, Ot Z11.59 ENCOUNTER FOR SCREENING FOR OTHER VIRAL 07/03/2017 JOHN MCCARTNEY MD, Ot E11.9 TYPE 2 DIABETES MELLITUS WITHOUT COMPLIC 07/03/2017 JOHN MCCARTNEY MD, Ot E11.9 TYPE 2 DIABETES MELLITUS WITHOUT COMPLIC 07/03/2017 MCCARTNEY MD, JOHN D Ot I10 ESSENTIAL (PRIMARY) HYPERTENSION 07/03/2017 TOMER PRESTON MD, Ot D50.9 IRON DEFICIENCY ANEMIA, UNSPECIFIED 07/03/2017 TOMER PRESTON MD Ot E11.9 TYPE 2 DIABETES MELLITUS WITHOUT COMPLIC 07/03/2017 TOMER PRESTON MD, Ot E78.2 MIXED HYPERLIPIDEMIA 07/03/2017 TOMER PRESTON MD Ot I10 ESSENTIAL (PRIMARY) HYPERTENSION 07/03/2017 TOMER PRESTON MD Ot R60.0 LOCALIZED EDEMA 07/03/2017 TOMER PRESTON MD Ot Z79.84 PENITENTIARY (CURRENT) USE OF ORAL HYPOGLYC 07/03/2017 TOMER PRESTON MD, Ot Z79.899 OTHER PENITENTIARY (CURRENT) DRUG THERAPY 07/03/2017 TOMER PRESTON MD, Ot Z82.49 FAMILY HX OF ISCHEM HEART DIS AND OTH DI 07/03/2017 TOMER PRESTON MD, Ot Z85.820 PERSONAL HISTORY OF MALIGNANT MELANOMA O 07/03/2017 JOHN MCCARTNEY MD, Ot V76.12 OTH SCREEN MAMMO-MALIGN NEOPLASM OF ALISTAIR 07/03/2017 DIA CORDERO APRN Ot E11.622 TYPE 2 DIABETES MELLITUS WITH OTHER SKIN 07/03/2017 DIA CORDERO BAKER PAINT Ot E66.01 MORBID (SEVERE) OBESITY DUE TO EXCESS CA 07/03/2017 DIA CORDERO APRN Ot 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 07/03/2017 DIA CORDERO APRN Ot L97.212 NON-PRESSURE CHRONIC ULCER OF RIGHT CALF 07/03/2017 JOHN MCCARTNEY MD, Ot D64.9 ANEMIA, UNSPECIFIED 07/03/2017 OLIVER COBOS MD, Ot E11.622 TYPE 2 DIABETES MELLITUS WITH OTHER SKIN 07/03/2017 OLIVER COBOS MD, Ot E66.01 MORBID (SEVERE) OBESITY DUE TO EXCESS CA 07/03/2017 OLIVER COBOS MD, Ot 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 07/03/2017 OLIVER COBOS MD, Ot L97.212 NON-PRESSURE CHRONIC ULCER OF RIGHT CALF 07/03/2017 OLIVER COBOS MD, Ot Z68.43 BODY MASS INDEX (BMI) 50-59.9 , ADULT 07/03/2017 OLIVER COBOS MD, Ot Z45.2 ENCOUNTER FOR ADJUSTMENT AND MANAGEMENT 07/03/2017 MCCARTNEY MD, JOHN D Ot E11.9 TYPE 2 DIABETES MELLITUS WITHOUT COMPLIC 07/03/2017 SHERRILL GAMBINO, JOHN Bello Ot E55.9 VITAMIN D DEFICIENCY, UNSPECIFIED 07/03/2017 JOHN MCCARTNEY MD Ot E78.5 HYPERLIPIDEMIA, UNSPECIFIED 07/03/2017 JOHN MCCARTNEY MD Ot Z11.59 ENCOUNTER FOR SCREENING FOR OTHER VIRAL 07/03/2017 JOHN MCCARTNEY MD Ot E11.9 TYPE 2 DIABETES MELLITUS WITHOUT COMPLIC 07/03/2017 JOHN MCCARTNEY MD Ot E11.9 TYPE 2 DIABETES MELLITUS WITHOUT COMPLIC 07/03/2017 JOHN MCCARTNEY MD Ot I10 ESSENTIAL (PRIMARY) HYPERTENSION 07/03/2017 TOMER PRESTON MD Ot D50.9 IRON DEFICIENCY ANEMIA, UNSPECIFIED 07/03/2017 TOMER PRESTON MD Ot E11.9 TYPE 2 DIABETES MELLITUS WITHOUT COMPLIC 07/03/2017 TOMER PRESTON MD Ot E78.2 MIXED HYPERLIPIDEMIA 07/03/2017 TOMER PRESTON MD Ot I10 ESSENTIAL (PRIMARY) HYPERTENSION 07/03/2017 TOMRE PRESTON MD Ot R60.0 LOCALIZED EDEMA 07/03/2017 TOMER PRESTON MD Ot 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 07/03/2017 TOMER PRESTON MD Ot Z79.899 OTHER PENITENTIARY (CURRENT) DRUG THERAPY 07/03/2017 TOMER PRESTON MD Ot Z82.49 FAMILY HX OF ISCHEM HEART DIS AND OTH DI 07/03/2017 TOMER PRESTON MD Ot Z85.820 PERSONAL HISTORY OF MALIGNANT MELANOMA O 07/04/2017 TOMER PRESTON MD Ot D50.9 IRON DEFICIENCY ANEMIA, UNSPECIFIED 07/04/2017 TOMER PRESTON MD Ot E11.9 TYPE 2 DIABETES MELLITUS WITHOUT COMPLIC 07/04/2017 TOMER PRESTON MD Ot E78.2 MIXED HYPERLIPIDEMIA 07/04/2017 TOMER PRESTON MD Ot I10 ESSENTIAL (PRIMARY) HYPERTENSION 07/04/2017 TOMER PRESTON MD Ot R60.0 LOCALIZED EDEMA 07/04/2017 TOMER PRESTON MD Ot Z79.84 PENITENTIARY (CURRENT) USE OF ORAL HYPOGLYC 07/04/2017 TOMER PRESTON MD Ot Z79.899 OTHER EXTRUSION LINE OPERATOR (CURRENT) DRUG THERAPY 07/04/2017 TOMER PRESTON MD Ot Z82.49 FAMILY HX OF ISCHEM HEART DIS AND OTH DI 07/04/2017 TOMER PRESTON MD Ot Z85.820 PERSONAL HISTORY OF MALIGNANT MELANOMA O 08/13/2017 TOMER PRESTON MD Ot D50.9 IRON DEFICIENCY ANEMIA, UNSPECIFIED 08/13/2017 TOMER PRESTON MD Ot E11.9 TYPE 2 DIABETES MELLITUS WITHOUT COMPLIC 08/13/2017 TOMER PRESTON MD Ot E78.2 MIXED HYPERLIPIDEMIA 08/13/2017 TOMER PRESTON MD Ot I10 ESSENTIAL (PRIMARY) HYPERTENSION 08/13/2017 TOMER PRESTON MD Ot R60.0 LOCALIZED EDEMA 08/13/2017 TOMER PRESTON MD Ot 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 08/13/2017 TOMER PRESTON MD Ot Z79.899 OTHER EXTRUSION LINE OPERATOR (CURRENT) DRUG THERAPY 08/13/2017 TOMER PRESTON MD Ot Z82.49 FAMILY HX OF ISCHEM HEART DIS AND OTH DI 08/13/2017 TOMER PRESTON MD Ot Z85.820 PERSONAL HISTORY OF MALIGNANT MELANOMA O 08/21/2017 TOMER PRESTON MD Ot Yunier0.9 IRON DEFICIENCY ANEMIA, UNSPECIFIED 08/21/2017 TOMER PRESTON MD Ot E11.9 TYPE 2 DIABETES MELLITUS WITHOUT COMPLIC 08/21/2017 TOMER PRESTON MD Ot E78.2 MIXED HYPERLIPIDEMIA 08/21/2017 TOMER PRESTON MD Ot I10 ESSENTIAL (PRIMARY) HYPERTENSION 08/21/2017 TOMER PRESTON MD Ot R60.0 LOCALIZED EDEMA 08/21/2017 TOMER PRESTON MD Ot Z79.84 PENITENTIARY (CURRENT) USE OF ORAL HYPOGLYC 08/21/2017 TOMER PRESTON MD Ot Z79.899 OTHER PENITENTIARY (CURRENT) DRUG THERAPY 08/21/2017 TOMER PRESTON MD Ot Z82.49 FAMILY HX OF ISCHEM HEART DIS AND OTH DI 08/21/2017 TOMER PRESTON MD Ot Z85.820 PERSONAL HISTORY OF MALIGNANT MELANOMA O 10/01/2017 TOMER PRESTON MD Ot D50.9 IRON DEFICIENCY ANEMIA, UNSPECIFIED 10/01/2017 TOMER PRESTON MD Ot E11.9 TYPE 2 DIABETES MELLITUS WITHOUT COMPLIC 10/01/2017 TOMER PRESTON MD Ot E78.2 MIXED HYPERLIPIDEMIA 10/01/2017 TOMER PRESTON MD Ot I10 ESSENTIAL (PRIMARY) HYPERTENSION 10/01/2017 TOMER PRESTON MD Ot R60.0 LOCALIZED EDEMA 10/01/2017 TOMER PRESTON MD, Ot 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 10/01/2017 TOMER PRESTON MD, Ot Z79.899 OTHER PENITENTIARY (CURRENT) DRUG THERAPY 10/01/2017 TOMER PRESTON MD, Ot Z82.49 FAMILY HX OF ISCHEM HEART DIS AND OTH DI 10/01/2017 TOMER PRESTON MD, Ot Z85.820 PERSONAL HISTORY OF MALIGNANT MELANOMA O 10/02/2017 JOHN MCCARTNEY MD, Ot V76.12 OTH SCREEN MAMMO-MALIGN NEOPLASM OF ALISTAIR 10/02/2017 DIA CORDERO APRN Ot E11.622 TYPE 2 DIABETES MELLITUS WITH OTHER SKIN 10/02/2017 DIA CORDERO APRN Ot E66.01 MORBID (SEVERE) OBESITY DUE TO EXCESS CA 10/02/2017 DIA CORDERO APRN Ot 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 10/02/2017 DIA CORDERO APRN Ot L97.212 NON-PRESSURE CHRONIC ULCER OF RIGHT CALF 10/02/2017 JOHN MCCARTNEY MD Ot D64.9 ANEMIA, UNSPECIFIED 10/02/2017 OLIVER COBOS MD, Ot E11.622 TYPE 2 DIABETES MELLITUS WITH OTHER SKIN 10/02/2017 OLIVER COBOS MD, Ot E66.01 MORBID (SEVERE) OBESITY DUE TO EXCESS CA 10/02/2017 OLIVER COBOS MD, Ot 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 10/02/2017 OLIVER COBOS MD Ot L97.212 NON-PRESSURE CHRONIC ULCER OF RIGHT CALF 10/02/2017 OLIVER COBOS MD Ot Z68.43 BODY MASS INDEX (BMI) 50-59.9 , ADULT 10/02/2017 OLIVER COBOS MD Ot Z45.2 ENCOUNTER FOR ADJUSTMENT AND MANAGEMENT 10/02/2017 JOHN MCCARTNEY MD Ot E11.9 TYPE 2 DIABETES MELLITUS WITHOUT COMPLIC 10/02/2017 JOHN MCCARTNEY MD, Ot E55.9 VITAMIN D DEFICIENCY, UNSPECIFIED 10/02/2017 JOHN MCCARTNEY MD, Ot E78.5 HYPERLIPIDEMIA, UNSPECIFIED 10/02/2017 JOHN MCCARTNEY MD Ot Z11.59 ENCOUNTER FOR SCREENING FOR OTHER VIRAL 10/02/2017 JOHN MCCARTNEY MD Ot E11.9 TYPE 2 DIABETES MELLITUS WITHOUT COMPLIC 10/02/2017 JOHN MCCARTNEY MD Ot E11.9 TYPE 2 DIABETES MELLITUS WITHOUT COMPLIC 10/02/2017 JOHN MCCARTNEY MD Ot I10 ESSENTIAL (PRIMARY) HYPERTENSION 10/02/2017 TOMER PRESTON MD, Ot D50.9 IRON DEFICIENCY ANEMIA, UNSPECIFIED 10/02/2017 TOMER PRESTON MD Ot E11.9 TYPE 2 DIABETES MELLITUS WITHOUT COMPLIC 10/02/2017 TOMER PRESTON MD Ot E78.2 MIXED HYPERLIPIDEMIA 10/02/2017 TOMER PRESTON MD Ot I10 ESSENTIAL (PRIMARY) HYPERTENSION 10/02/2017 TOMER RPESTON MD Ot R60.0 LOCALIZED EDEMA 10/02/2017 TOMER PRESTON MD Ot Z79.84 PENITENTIARY (CURRENT) USE OF ORAL HYPOGLYC 10/02/2017 TOMER PRESTON MD Ot Z79.899 OTHER PENITENTIARY (CURRENT) DRUG THERAPY 10/02/2017 TOMER PRESTON MD Ot Z82.49 FAMILY HX OF ISCHEM HEART DIS AND OTH DI 10/02/2017 TOMER PRESTON MD Ot Z85.820 PERSONAL HISTORY OF MALIGNANT MELANOMA O 10/03/2017 TOMER PRESTON MD Ot D50.9 IRON DEFICIENCY ANEMIA, UNSPECIFIED 10/03/2017 TOMER PRESTON MD Ot E11.9 TYPE 2 DIABETES MELLITUS WITHOUT COMPLIC 10/03/2017 TOMER PRESTON MD Ot E78.2 MIXED HYPERLIPIDEMIA 10/03/2017 TOMER PRESTON MD Ot I10 ESSENTIAL (PRIMARY) HYPERTENSION 10/03/2017 TOMER PRESTON MD Ot R60.0 LOCALIZED EDEMA 10/03/2017 TOMER PRESTON MD Ot 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 10/03/2017 TOMER PRESTON MD Ot Z79.899 OTHER PENITENTIARY (CURRENT) DRUG THERAPY 10/03/2017 TOMER PRESTON MD Ot Z82.49 FAMILY HX OF ISCHEM HEART DIS AND OTH DI 10/03/2017 TOMER PRESTON MD Ot Z85.820 PERSONAL HISTORY OF MALIGNANT MELANOMA O 10/09/2017 TOMER PRESTON MD Ot D50.9 IRON DEFICIENCY ANEMIA, UNSPECIFIED 10/09/2017 TOMER PRESTON MD Ot D63.1 ANEMIA IN CHRONIC KIDNEY DISEASE 10/09/2017 TOMER PRESTON MD Ot E11.9 TYPE 2 DIABETES MELLITUS WITHOUT COMPLIC 10/09/2017 TOMER PRESTON MD Ot E78.2 MIXED HYPERLIPIDEMIA 10/09/2017 TOMER PRESTON MD Ot I10 ESSENTIAL (PRIMARY) HYPERTENSION 10/09/2017 TOMER PRESTON MD Ot N18.3 CHRONIC KIDNEY DISEASE, STAGE 3 (MODERAT 10/09/2017 TOMER PRESTON MD Ot R60.0 LOCALIZED EDEMA 10/09/2017 TOMER PRESTON MD Ot 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 10/09/2017 TOMER PRESTON MD Ot Z79.899 OTHER EXTRUSION LINE OPERATOR (CURRENT) DRUG THERAPY 10/09/2017 TOMER PRESTON MD Ot Z82.49 FAMILY HX OF ISCHEM HEART DIS AND OTH DI 10/09/2017 TOMER PRESTON MD Ot Z85.820 PERSONAL HISTORY OF MALIGNANT MELANOMA O 10/11/2017 JOHN MCCARTNEY MD Ot E11.65 TYPE 2 DIABETES MELLITUS WITH HYPERGLYCE 10/21/2017 JOHN MCCARTNEY MD Ot Z53.9 PROCEDURE AND TREATMENT NOT CARRIED OUT, 11/12/2017 TOMER PRESTON MD Ot D50.9 IRON DEFICIENCY ANEMIA, UNSPECIFIED 11/12/2017 TOMER PRESTON MD Ot D63.1 ANEMIA IN CHRONIC KIDNEY DISEASE 11/12/2017 TOMER PRESTON MD Ot E11.9 TYPE 2 DIABETES MELLITUS WITHOUT COMPLIC 11/12/2017 TOMER PRESTON MD Ot E78.2 MIXED HYPERLIPIDEMIA 11/12/2017 TOMER PRESTON MD Ot I10 ESSENTIAL (PRIMARY) HYPERTENSION 11/12/2017 TOMER PRESTON MD Ot N18.3 CHRONIC KIDNEY DISEASE, STAGE 3 (MODERAT 11/12/2017 TOMER PRESTON MD Ot R60.0 LOCALIZED EDEMA 11/12/2017 TOMER PRESTON MD Ot 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 11/12/2017 TOMER PRESTON MD Ot Z79.899 OTHER PENITENTIARY (CURRENT) DRUG THERAPY 11/12/2017 TOMER PRESTON MD Ot Z82.49 FAMILY HX OF ISCHEM HEART DIS AND OTH DI 11/12/2017 TOMER PRESTON MD Ot Z85.820 PERSONAL HISTORY OF MALIGNANT MELANOMA O 11/22/2017 TOMER PRESTON MD Ot D50.9 IRON DEFICIENCY ANEMIA, UNSPECIFIED 11/22/2017 TOMER PRESTON MD Ot D63.1 ANEMIA IN CHRONIC KIDNEY DISEASE 11/22/2017 TOMER PRESTON MD Ot E11.9 TYPE 2 DIABETES MELLITUS WITHOUT COMPLIC 11/22/2017 TOMER PRESTON MD Ot E78.2 MIXED HYPERLIPIDEMIA 11/22/2017 TOMER PRESTON MD Ot I10 ESSENTIAL (PRIMARY) HYPERTENSION 11/22/2017 TOMER PRESTON MD, Ot N18.3 CHRONIC KIDNEY DISEASE, STAGE 3 (MODERAT 11/22/2017 TOMER PRESTON MD Ot R60.0 LOCALIZED EDEMA 11/22/2017 TOMER PRESTON MD Ot 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 11/22/2017 TOMER PRESTON MD, Ot Z79.899 OTHER EXTRUSION LINE OPERATOR (CURRENT) DRUG THERAPY 11/22/2017 TOMER PRESTON MD, Ot Z82.49 FAMILY HX OF ISCHEM HEART DIS AND OTH DI 11/22/2017 TOMER PRESTON MD, Ot Z85.820 PERSONAL HISTORY OF MALIGNANT MELANOMA O Procedures There is no data. Results Test Result Range Bacteria identification in isolate by anaerobe culture - 10/28/15 10:06 Bacteria identification in isolate by anaerobe culture NOANA NRG Gram stain microscopy - 10/28/15 10:06 GRAM STAIN RESULT FEW WBC'S, NO BACTERIA OBSERVED NRG Bacteria identification in wound by culture - 10/28/15 10:06 Bacteria identification in wound by culture [id number] NRG QUANTITY OF GROWTH Scant Growth NRG Bacteria identification in isolate by anaerobe culture - 11/11/15 11:30 Bacteria identification in isolate by anaerobe culture NOANA NRG Gram stain microscopy - 11/11/15 11:30 GRAM STAIN RESULT FEW WBC'S, NO BACTERIA OBSERVED NRG Bacteria identification in wound by culture - 11/11/15 11:30 Bacteria identification in wound by culture [id number] NRG FREE TEXT EXTERNAL 2 COLONY TYPES OBSERVED NRG QUANTITY OF GROWTH Scant Growth NRG Bacterial susceptibility panel - 11/11/15 11:30 Gentamicin susceptibility test by minimum inhibitory concentration < = NRG Tobramycin susceptibility test by minimum inhibitory concentration < = NRG Piperacillin/tazobactam susceptibility test by minimum inhibitory concentration 8 NRG Ciprofloxacin susceptibility test by minimum inhibitory concentration 2 NRG Meropenem susceptibility test by minimum inhibitory concentration 1 NRG Cefepime susceptibility test by minimum inhibitory concentration <= NRG Amikacin susceptibility test by minimum inhibitory concentration S NRG Automated blood complete blood count (hemogram) panel - 11/16/15 11:50 Blood leukocytes automated count (number/volume) 7.0 10*3/uL 4.3-11.0 Blood erythrocytes automated count (number/volume) 3.06 10*6/uL 4.35-5.85 Venous blood hemoglobin measurement (mass/volume) 8.9 g/dL 11.5-16.0 Blood hematocrit (volume fraction) 28 % 35-52 Automated erythrocyte mean corpuscular volume 93 [foz_us] 80-99 Automated erythrocyte mean corpuscular hemoglobin (mass per erythrocyte) 29 pg 25-34 Automated erythrocyte mean corpuscular hemoglobin concentration measurement ( mass/volume) 31 g/dL 32-36 Automated erythrocyte distribution width ratio 14.3 % 10.0-14.5 Automated blood platelet count (count/volume) 223 10*3/uL 130-400 Automated blood platelet mean volume measurement 8.7 [foz_us] 7.4-10.4 Whole blood basic metabolic panel - 11/16/15 11:50 Serum or plasma sodium measurement (moles/volume) 139 mmol/L 135-145 Serum or plasma potassium measurement (moles/volume) 4.6 mmol/L 3.6-5.0 Serum or plasma chloride measurement (moles/volume) 107 mmol/L 98-107 Carbon dioxide 23 mmol/L 21-32 Serum or plasma anion gap determination (moles/volume) 9 mmol/L 5-14 Serum or plasma urea nitrogen measurement (mass/volume) 19 mg/dL 7-18 Serum or plasma creatinine measurement (mass/volume) 0.83 mg/dL 0.60-1.30 Serum or plasma urea nitrogen/creatinine mass ratio 23 NRG Serum or plasma creatinine measurement with calculation of estimated glomerular filtration rate > NRG Serum or plasma glucose measurement (mass/volume) 107 mg/dL 70-105 Serum or plasma calcium measurement (mass/volume) 9.2 mg/dL 8.5-10.1 Automated reticulocyte percentage - 11/30/15 08:05 Blood erythrocytes automated count (number/volume) 3.08 10*6/uL 4.35-5.85 Blood reticulocytes count (number/volume) 39 10*9/L 24- 90 Blood reticulocytes/100 erythrocytes 1.27 % 0.50-2.40 Serum iron and total iron binding capacity panel - 12/01/15 08:20 Serum or plasma iron measurement (mass/volume) 62 % 35- 180 Total iron binding capacity and transferrin saturation measurement 14 % 15-50 Iron binding capacity [mass/volume] in serum or plasma 430 % 280-380 UIBC (unsaturated iron binding capacity) 368 % 55-450 Serum or plasma ferritin measurement (mass/volume) 15 % 15-150 Serum or plasma methylmalonate measurement (mass/volume) - 12/01/15 08:20 Serum methylmalonic acid measurement 0.36 % 0.00-0.40 Automated blood complete blood count (hemogram) panel - 12/14/15 08:30 Blood leukocytes automated count (number/volume) 3.7 10*3/uL 4.3-11.0 Blood erythrocytes automated count (number/volume) 3.13 10*6/uL 4.35-5.85 Venous blood hemoglobin measurement (mass/volume) 9.0 g/dL 11.5-16.0 Blood hematocrit (volume fraction) 29 % 35-52 Automated erythrocyte mean corpuscular volume 92 [foz_us] 80-99 Automated erythrocyte mean corpuscular hemoglobin (mass per erythrocyte) 29 pg 25-34 Automated erythrocyte mean corpuscular hemoglobin concentration measurement ( mass/volume) 31 g/dL 32-36 Automated erythrocyte distribution width ratio 14.4 % 10.0-14.5 Automated blood platelet count (count/volume) 204 10*3/uL 130-400 Automated blood platelet mean volume measurement 8.7 [foz_us] 7.4-10.4 Whole blood basic metabolic panel - 12/14/15 08:30 Serum or plasma sodium measurement (moles/volume) 140 mmol/L 135-145 Serum or plasma potassium measurement (moles/volume) 4.6 mmol/L 3.6-5.0 Serum or plasma chloride measurement (moles/volume) 108 mmol/L 98-107 Carbon dioxide 22 mmol/L 21-32 Serum or plasma anion gap determination (moles/volume) 10 mmol/L 5-14 Serum or plasma urea nitrogen measurement (mass/volume) 25 mg/dL 7-18 Serum or plasma creatinine measurement (mass/volume) 0.81 mg/dL 0.60-1.30 Serum or plasma urea nitrogen/creatinine mass ratio 31 NRG Serum or plasma creatinine measurement with calculation of estimated glomerular filtration rate > NRG Serum or plasma glucose measurement (mass/volume) 103 mg/dL 70-105 Serum or plasma calcium measurement (mass/volume) 9.0 mg/dL 8.5-10.1 Bacteria identification in isolate by anaerobe culture - 12/16/15 09:30 Bacteria identification in isolate by anaerobe culture NOANA NRG Gram stain microscopy - 12/16/15 09:30 GRAM STAIN RESULT NO BACTERIA OBSERVED NRG Bacteria identification in wound by culture - 12/16/15 09:30 Bacteria identification in wound by culture [id number] NRG QUANTITY OF GROWTH Scant Growth NRG Bacteria identification in isolate by anaerobe culture - 01/06/16 09:30 Bacteria identification in isolate by anaerobe culture NOANA NRG Gram stain microscopy - 01/06/16 09:30 GRAM STAIN RESULT FEW WBC'S, NO BACTERIA OBSERVED NRG Bacteria identification in wound by culture - 01/06/16 09:30 Bacteria identification in wound by culture [id number] NRG FREE TEXT EXTERNAL PLEASE NOTIFY MICRO ID DR REQUESTS NRG QUANTITY OF GROWTH Scant Growth NRG FREE TEXT ENTRY 2 A SENSITIVITY (BY REFERENCE LAB) ON NRG FREE TEXT ENTRY 3 THIS ISOLATE. NRG Hemoglobin A1c - 11/20/16 14:25 Hemoglobin A1c 5.5 % 4.5-6.2 Hemoglobin A1c - 03/27/17 09:50 Hemoglobin A1c 5.6 % 4.5-6.2 Hemoglobin A1c - 10/09/17 13:37 Blood hemoglobin A1C measurement (mass/volume) 6.4 % 4.0- 5.6 MEAN BLOOD GLUCOSE 137 % <=126 Encounters ACCT No. Visit Date/Time Discharge Status Pt. Type Provider Facility Loc./Unit Complaint [id number] 11/27/2017 13:35:00 11/27/2017 23:59:59 CLS Outpatient TOMER PRESTON MD [facility] ONC [id number] 10/17/2017 09:42:00 10/17/2017 23:59:59 CLS Outpatient JOHN MCCARTNEY MD [facility] LAB [id number] 10/09/2017 14:16:00 10/09/2017 23:59:59 CLS Outpatient JOHN MCCARTNEY MD [facility] LAB [id number] 09/24/2017 13:11:00 10/01/2017 00:01:00 DIS Outpatient TOMER PRESTON MD [facility] ONC [id number] 06/26/2017 14:06:00 07/03/2017 09:37:00 DIS Outpatient ROSALEE CRENSHAW N [facility] ONC [id number] 04/09/2017 13:53:00 06/25/2017 00:01:00 DIS Outpatient ROSALEE CRENSHAW N [facility] ONC [id number] 03/27/2017 13:01:00 03/27/2017 23:59:59 CLS Outpatient JOHN MCCARTNEY MD [facility] LAB [id number] 12/05/2016 14:06:00 12/22/2016 00:01:00 DIS Outpatient ROSALEE CRENSHAW N [facility] ONC [id number] 12/14/2016 09:14:00 12/14/2016 23:59:59 CLS Preadmit JOHN MCCARTNEY MD [facility] RAD SCREENING [id number] 11/20/2016 14:02:00 11/23/2016 15:53:00 DIS Outpatient ROSALEE CRENSHAW N [facility] ONC [id number] 11/20/2016 14:25:00 11/20/2016 23:59:59 CLS Outpatient JOHN MCCARTNEY MD [facility] LABNPT E11.9 [id number] 07/31/2016 13:57:00 08/22/2016 00:01:00 DIS Outpatient ROSALEE CRENSHAW N [facility] ONC [id number] 07/31/2016 14:28:00 07/31/2016 23:59:59 CLS Outpatient JOHN MCCARTNEY MD [facility] LAB [id number] 03/01/2016 13:55:00 04/18/2016 00:01:00 DIS Outpatient ROSALEE CRENSHAW N [facility] ONC [id number] 04/03/2016 12:00:00 04/03/2016 23:59:59 CLS Preadmit ALLEN LOPEZ [facility] CARD HTN [id number] 03/07/2016 13:52:00 03/07/2016 23:59:59 CLS Outpatient OLIVER COBOS MD [facility] [id number] 03/07/2016 14:45:00 03/07/2016 16:00:00 DIS Outpatient OLIVER COBOS MD [facility] WOUNDCARE [id number] 02/15/2016 00:08:00 02/15/2016 23:59:59 CLS Preadmit OLIVER COBOS MD [facility] NON PRESSURE CHRONIC ULCER OF RT CALF [id number] 01/12/2016 10:28:00 02/14/2016 00:01:00 DIS Outpatient OLIVER COBOS MD [facility] NON PRESSURE CHRONIC ULCER OF RT CALF [id number] 12/22/2015 08:30:00 12/26/2015 08:38:00 DIS Outpatient OLIVER COBOS MD [facility] WOUNDCARE [id number] 12/01/2015 08:10:00 12/01/2015 23:59:59 CLS Outpatient JOHN MCCARTNEY MD [facility] ANEMIA [id number] 11/25/2015 09:01:00 12/01/2015 00:01:00 DIS Outpatient OLIVER COBOS MD [facility] WOUNDCARE [id number] 11/04/2015 10:45:00 11/16/2015 14:00:00 DIS Outpatient OLIVRE COBOS MD [facility] 4TH RCR NON PRESSSUR CHRONIC ULCER OF RIGHT CALF [id number] 09/27/2015 15:16:00 09/27/2015 23:59:59 CLS Outpatient DIA CORDERO APRN [facility] LAB NON CHRONIC ULSER RT CALF [id number] 03/17/2014 11:38:00 03/22/2014 13:03:00 DIS Outpatient JOHN MCCARTNEY MD [facility] WOUNDCARE VENOUS INSUFF ULCER RLE [id number] 03/10/2014 11:34:00 03/10/2014 23:59:59 CLS Outpatient JOHN MCCARTNEY MD [facility] RAD ROUTINE [id number] 12/05/2017 12:15:00 ACT Inpatient JANNET GOTTI MD [facility] IRF DEBILITY [id number] 10/03/2015 10:29:00 Document Registration [id number] 10/03/2015 10:29:00 Document Registration [id number] 10/31/2011 15:01:00 Document Registration [id number] 10/26/2011 15:04:00 Document Registration [id number] 06/06/2010 00:00:00 Document Registration [id number] 05/12/2010 09:30:00 Document Registration [id number] 05/09/2010 07:30:00 Document Registration [id number] 03/17/2014 11:38:50 ACT Document Registration
[2017-12-05] MEDS ORDERED: ALBU18HF2 INH ×2 (14:03)
[2017-12-05] MEDS ORDERED: FOLI1TAB24 PO ×2 (14:03)
[2017-12-05] MEDS ORDERED: FLUT1DIS26 INH ×2 (14:03)
[2017-12-05] MEDS ORDERED: CYAN100T PO ×2 (14:03)
[2017-12-05] MEDS ORDERED: METF-399 PO ×2 (14:03)
[2017-12-05] MEDS ORDERED: CHOL20003 PO ×2 (14:03)
[2017-12-05] MEDS ORDERED: FURO40TA4 PO ×2 (14:03)
[2017-12-05] MEDS ORDERED: OLME40TA18 PO ×2 (14:03)
[2017-12-05] MEDS ORDERED: ATOR40TA70 PO ×2 (14:03)
[2017-12-05] MEDS ORDERED: PIOG30TA71 PO ×2 (14:03)
[2017-12-05] MEDS ORDERED: ASCO-262 PO ×2 (14:03)
[2017-12-05] MEDS ORDERED: ACET-2267 PO ×2 (14:03)
[2017-12-05] MEDS ORDERED: POTA10TA10 PO ×2 (14:03)
[2017-12-05] MEDS ORDERED: MONT10TA24 PO ×2 (14:03)
[2017-12-05] MEDS ORDERED: TRAM50TA2 PO (14:03)
--- NOTE | 2017-12-05 14:09 | Occupational Ther Daily Note ---
OT Current Status-Daily Note Subjective No pain reported. Appearance Pt. up in chair. Eating lunch. Mental Status/Objective Patient Orientation: Person, Place, Time, Situation Functional [place] Measure 0=Not Assessed/NA 4=Minimal Assistance 1=Total Assistance 5=Supervision or Setup 2=Maximal Assistance 6=Modified [place] 3=Moderate Assistance 7=Complete [place] ADL-Treatment Functional [place] Measure 0=Not Assessed/NA 4=Minimal Assistance 1=Total Assistance 5=Supervision or Setup 2=Maximal Assistance 6=Modified [place] 3=Moderate Assistance 7=Complete IndependenceIRFPAI Quality Coding Scale 6 Independent with activity with or without an assistive device 5 Patient requires set up or clean up by helper. Patient completes activity by themselves 4 Supervision or touching assist (CGA). [place] provide cues , steadying assist 3 The helper provides less than half the effort to complete the activity 2 The helper provides more than half the effort to complete the activity 1 Dependent. The helper does all the effort to complete an activity 7 Patient refused to complete or attempt activity 9 The patient did not perform the activity before the current illness or injury 88 Not attempted due to Medical conditions or safety concerns Eating (FIM): 6 Eating (QC): 6 Pt. eating lunch. Pt. independent with this while OT and pt. talk about home set up and need for skilled therapy. Pt. is educated about rehab process, goals to be accomplished, and possible equipment needs for ADLs. Pt. is very alert, oriented, and aware of her situation. Pt. relays her struggles at home with this OT, and her own awareness of muscle weakness. Pt. has a tub/shower at home, but has not showered in almost a year. States that she does spongebathing, as she has difficulty getting into/out of shower. Also reports difficulty doing household tasks such as taking out trash, standing for long periods to do the dishes, etc.....Pt. is educated about adaptive equipment and possible need for this to increase overall independence. Pt. states that she is eager to get stronger, and to open the door for other resources once she is discharged. Will continue to assess and work with pt. to increase overall independence. Education OT Patient Education: Correct positioning, Modified ADL techniques, Progress toward Goal/Update tx plan, Purpose of tx/functional activities, Reviewed precautions, Rehab process, Transfer techniques Teaching Recipient: Patient Teaching Methods: Demonstration, Discussion Response to Teaching: Verbalize Understanding, Return Demonstration OT Short Term Goals Short Term Goals 1=Demonstrate adherence to instructed precautions during ADL tasks. 2=Patient will verbalize/demonstrate understanding of assistive devices/ modifications for ADL. 3=Patient will improve strength/tolerance for activity to enable patient to perform ADL's. OT Custodial Goals Custodial Goals 1=Demonstrate adherence to instructed precautions during ADL tasks. 2=Patient will verbalize/demonstrate understanding of assistive devices/ modifications for ADL. 3=Patient will improve strength/tolerance for activity to enable patient to perform ADL's. OT Education/Plan Problem List/Assessment Assessment: Decreased Activ Tolerance, Decreased UE Strength, Dependent Transfers, Impaired I ADL's, Impaired Self-Care Skills Pt would benefit from skilled OT to increase her independence in basic self care to allow her to safely return to her home Discharge Recommendations Plan/Recommendations: Continue POC Therapy D/C Recommendations: Home w/ Family Support, Occupational Therapy Home Care, Meals on Wheels, Scheduled Assistance Equpiment Recommendations-D/C: Hip Kit Treatment Plan/Plan of Care Treatment,Training & Education: Yes Patient would benefit from OT for education, treatment and training to promote independence in ADL's, mobility, safety and/or upper extremity function for ADL' s. Plan of Care: ADL Retraining, Functional Mobility, Group Exercise/Act as Ind ( education, exercise, functional activity, activity tolerance, functional mobility, socialization), UE Funct Exercise/Act, UE Neuromus Re-Ed/Coord Treatment Duration: Dec 26, 2017 Frequency: At least 5 of 7 days/Wk (IRF) Estimated Hrs Per Day: 1.5 hours per day Agreement: Yes Rehab Potential: Fair Time/GCodes Start Time: 13:30 Stop Time: 13:55 Total Time Billed (hr/min): 25 Billed Treatment Time 1, ADL x 2 FAUSTINO THRASHER OT Dec 05, 2017 14:09
--- NOTE | 2017-12-05 14:53 | Physical Therapy Daily Note ---
PT Daily Note-Current Subjective pt in recliner pre tx, agrees to PT, pain 5/10 in both knees and lower legs Appearance pt in recliner post tx, w/ phone, call light, tray, all needs met Mental Status Patient Orientation: Person, Place, Time Transfers Functional [place] Measure 0=Not Assessed/NA 4=Minimal Assistance 1=Total Assistance 5=Supervision or Setup 2=Maximal Assistance 6=Modified [place] 3=Moderate Assistance 7=Complete IndependenceIRFPAI Quality Coding Scale 6 Independent with activity with or without an assistive device 5 Patient requires set up or clean up by helper. Patient completes activity by themselves 4 Supervision or touching assist (CGA). [place] provide cues , steadying assist 3 The helper provides less than half the effort to complete the activity 2 The helper provides more than half the effort to complete the activity 1 Dependent. The helper does all the effort to complete an activity 7 Patient refused to complete or attempt activity 9 The patient did not perform the activity before the current illness or injury 88 Not attempted due to Medical conditions or safety concerns Transfers (B, C, W/C) (FIM): 4 Sit to/from Stand: 4 sit<->stand CGA, pt needs cues for reaching back/pushing off chair Weight Bearing Right Lower Extremity: Right Full Weight Bearing Left Lower Extremity: Left Full Weight Bearing Gait Training Does the Patient Walk?: Yes Gait (FIM): 2 Distance (FIM): 4=151-88 ft Distance: 60'x3 Gait Level of Assist: 4 Gait Persons Needed: 1 Gait Assistive Device: FWW pt ambulates 3x60' around unit w/ CGA using FWW, gait is very slow w/ steps only 6-8 inches at a time, pt demonstrates flexed posture at hips, cues needed to stand up tall are ineffective, Treatments gait training Assessment Current Status: Fair Progress improved endurance and gait distance PT Short Term Goals Short Term Goals Time Frame: Dec 05, 2017 Wheelchair Distance: 150' PT Market Research Intern Goals Usp Goals PT Usp Goals Time Frame: Dec 26, 2017 Transfers (B,C,W/C) (FIM): 6 Sit to Lying (QC): 6 Lying-Sitting on Side/Bed(QC): 6 Sit to Stand (QC): 6 Rollin Roll Left to Right (QC): 6 Chair/Qik-jj-Albwg Xfer(QC): 6 Car Transfer (QC): 6 Does the Patient Walk: Yes Gait (FIM): 6 Distance: >200' Walk 10 feet (QC): 6 Walk 10ft-Uneven Surface(QC): 6 Walk 50ft with 2 Turns (QC): 6 Walk 150 ft (QC): 6 Gait Level of Assist: 6 Gait Assistive Device: Cane Small Base Quad Stairs (FIM): 6 # of Steps: 12 1 Step (curb) (QC): 6 4 Steps (QC): 6 12 Steps (QC): 6 Stairs Level Of Assist: 6 Picking up an Object (QC): 6 PT Plan Problem List Problem List: Activity Tolerance, Functional Strength, Safety, Balance, Gait, Transfer, Bed Mobility Treatment/Plan Treatment Plan: Continue Plan of Care Treatment Plan: Bed Mobility, Education, Functional Activity Yimi, Functional Strength, Group Therapy, Gait, Safety, Therapeutic Exercise, Transfers Treatment Duration: Dec 26, 2017 Frequency: Modified Program (IRF) Estimated Hrs Per Day: 1.5 hours per day Patient and/or Family Agrees t: Yes Safety Risks/Education Patient Education: Gait Training, Transfer Techniques, Correct Positioning, Safety Issues Teaching Recipient: Patient Teaching Methods: Demonstration, Discussion Response to Teaching: Reinforcement Needed Time/GCodes Time In: 1425 Time Out: 1440 Total Billed Treatment Time: 15 Total Billed Treatment 1 visit GT 15' KWASI DISLA PT Dec 05, 2017 14:53
[2017-12-05] MEDS: ACETAMINOPHEN 500 MG TAB (TYLENOL) PO PRN ×2 (15:24→23:24)
[2017-12-05 15:37] VITALS: BP 100/66
--- NOTE | 2017-12-05 15:40 | ST Cognitive Linguistic Eval ---
Speech Evaluation-General Medical Diagnosis debility Onset Date: Dec 05, 2017 Therapy Diagnosis Therapy Diagnosis: Cognition Precautions Precautions/Isolations: Fall Prevention, Standard Precautions, Pressure Ulcer Referral Referring Physician: Dr. Trimble Reason for Referral: Evaluation/Treatment Medical History Pertinent Medical History: DM, HTN Reviewed History: Yes Social History Current Living Status: Alone Speech PLF-Current Status Prior Level of Function pt was independent Subjective pt up in chair. Pleasant and cooperative. Pain Numeric Pain Scale: 0-No Pain Language Eval: Auditory Follows 1-Step Commands: Functional Follows Complex Directions: Functional Follows General Conversations: Functional Language Eval: Verbal Language Completes Spontaneous Greeting: Functional Produces Auto, Serial Info: Functional Word Finding: Functional Requests Basic Needs: Functional States Basic Personal Info: Functional Expresses Complex Ideas: Functional Language Evaluation: Reading NT Cognitive Patient Orientation Oriented x 3 Objective Cognitive Domain Attention: WNL Memory: WNL Problem Solving: Functional Objective Results [facility] Cognitive/Communication was administered to address cognitive- linguistic functioning. Results are as follows: Memory - 3 word recall was 3/3 correct for immediate, delayed and remotely delayed. Organization was 4/4 correct. Problem Solving - Simple 4/4 correct; Math 3/3 correct; Abstract/Complex was 2/ 2 correct; and Comparisons was 5/5 correct. Speech/language WNL Oral Motor/Speech Production WNL Impression Functional cognitive-linguistic skills Communication/Social Cognition Comprehension: 7 Expression: 7 Social Interaction: 7 Problem Solvin Memory: 7 Speech Patient Assess Expression of Ideas/Wants: Expression (4) Understanding Verbal Content: Understands (4) Brief Interview-Mental Status: Yes Repetition of Three Words: Three (3) Temporal Orientation: Year: Correct (3) Temporal Orientation: Month: Accurate within 5 days(2) Temporal Orientation: Day: Correct (1) Recall : Wear to say "Sock": Yes, no cue required (2) Recall : Color: Yes, no cue required (2) Recall : Bed: Yes, no cue required (2) Speech Short Term Goals Short Term Goals Short Term Goals no goals established as skilled ST not indicated. Speech Proofer Apprentice Goals Penitentiary Goals no LTGs established as skilled ST not indicated. Speech-Plan Patient/Family Goals Patient/Family Goals: to return home Treatment Plan Speech Therapy Treatment Plan: Discontinue ST skilled ST not indicated Frequency: Modified Program (IRF) (0) Estimated Hrs Per Day: Other (0) Rehab Potential: Good Pt/Family Agrees to Plan: Yes Time Speech Therapy Time In: 14:50 Speech Therapy Time Out: 15:10 Total Billed Time: 20 Billed Treatment Time 1,RICKYNDANTONIO Williamson Dec 05, 2017 15:40
--- NOTE | 2017-12-05 18:20 | Wound Care Assessment ---
Wound Care Assessment Date Seen by Provider: Dec 05, 2017 Time Seen by Provider: 18:18 Chief Complaint R calf ulcer. HPI The patient is a 72 year old female with severe and long-standing venous insufficiency and deep R calf ulcer. She has been admitted to the rehab unit due to loss of mobility. She complains of being progressively weak. she has not been able to elevate and dress her legs as recommended. her R calf venous insufficiency ulcers have recurred. Past Medical History: Admits Diabetes Type II, Admits Heart Disease, Admits Peripheral Artery Disease Smoking Status: Never a Smoker Recreational Drug Use: No Alcohol Use: Denies Use Review of Systems Pulmonary: Dyspnea Cardiovascular: No: Chest Pain Gastrointestinal: No: Abdominal Pain Musculoskeletal: leg pain Neurological: Weakness Exam Vital Signs Date Time Temp Pulse Resp B/P (MAP) Pulse Ox O2 Delivery O2 Flow Rate FiO2 12/05/17 15:37 98.3 111 16 100/66 (77) 94 Room Air Capillary Refill : Less Than 3 Seconds General Appearance: mild distress Cardiovascular: regular rate, rhythm Respiratory: normal breath sounds Extremities: other (Diminished pulses R leg.) Skin: other (Two large R calf ulcers with inflamed, granulating beds. Copious amounts of thin serous drainage.) Results Laboratory Tests 12/05/17 16:06: Glucometer 129H Assessment/Plan/Dx 1. Venous insufficiency ulcers R calf x 2, much worse than previous episode. 2. Diabetes mellitus, poorly controlled. 3. Congestive heart failure, COPD, morbid obesity, deconditioning. Plan: We will check arterial studies, elevate and compress as tolerated. Encouraged to ambulate. OLIVER COBOS MD Dec 05, 2017 18:20
--- NOTE | 2017-12-05 19:07 | PM&R Post Admission Assessment ---
Post Admission Physician Asses Date seen by provider: Dec 05, 2017 Time seen by provider: 18:00 The preadmission screen agrees with the post admission assessment that the patient is a good candidate for inpatient rehabilitation. The patient will have a comprehensive program of inpatient rehabilitation with a goal of maximizing level of functional independence prior to discharge home with [facility]. The patient will have PT/OT ninety minutes per day, each discipline , five days a week for 14 days for gait, strengthening, conditioning, balance, ADLs, any patient/family/caregiver training as necessary. Speech therapy to do cognitive assessment and treat as indicated. Rehabilitation nursing to assist with bowel, bladder, skin, wound care, medication administration, pain management. Internet Designer to assist with discharge planning, community reentry. SCD's would be problematic due to open wounds both legs and Lovenox might be problematic due to chronic anemia for DVT prophylaxis defer to PCP re this. She appears to be well motivated to participate in three hours of therapy a day. She should be able to tolerate three hours of therapy a day from a medical standpoint. She should benefit from the three hours of therapy a day. She has a reasonable discharge plan, reasonable discharge rehabilitation goals and a supportive family. She has various comorbidities that need to be closely monitored with medications and treatments adjusted on a daily basis as needed. These include: DM Chronic anemia Chronic wounds legs Barriers to discharge for this patient who had been independent prior to this are for her to be modified independent to supervision for ADLs and mobility skills prior to discharge home with [facility], so as to lessen the burden of the caregivers. Risks for this patient include: 1. Fall 2. Fracture 3. DVT 4. Pulmonary embolism 5. Wound infection 6. Skin breakdown 7. Contractures 8. Poorly controlled pain 9. Urinary retention 10. UTI 11. Respiratory infection 12. Aspiration 13. Poorly controlled DM 14. Poorly controlled HTN IGC code 16 Etiologic DX Iron def anemia Estimated Length of Stay: []days Prognosis: Rehab prognosis appears good for goal of discharge home with [family ] modified independent to supervision for ADLs and mobility skills. General: Alert, Oriented X3, Cooperative, No Acute Distress HEENT: Atraumatic, PERRLA, EOMI, Mucous Memb Moist/[place] Neck: Supple, No JVD Lungs: Clear to Auscultation Heart: Regular Rate Abdomen: Normal Bowel Sounds, Soft, No Tenderness, Other (obese) Extremities: Other (Chronic edema with wounds both shins RT >left) Neuro: Other (Weaknee BLES) JANNET GOTTI MD Dec 05, 2017 19:07
--- NOTE | 2017-12-05 19:56 | HISTORY AND PHYSICAL ---
DATE OF SERVICE: 12/05/2017 ADMISSION HISTORY AND PHYSICAL CHIEF COMPLAINT: Difficulty with walking. 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 She has had a decline in her functional independence with increased weakness and increased chronic wounds on her legs. She has seen Dr. Salgado in the past. She had been modified independent with a walker or cane prior to this. Currently, she is mid to mod assist for transfers and min assist for gait with a front wheel walker. She is mod assist for toileting and dependent for her wound care. PAST MEDICAL HISTORY: [facility], stage III chronic kidney disease, diabetes mellitus, dyspnea on exertion, history of malignant melanoma, hypertension, elevated serum, immunoglobulin free light chain level, hyperlipidemia, peripheral edema, chronic ulcers of both legs, right more than left. PAST SURGICAL HISTORY: As per above. ALLERGIES: INTOLERANCE TO NONSTEROIDAL ANTI-INFLAMMATORIES AND PENICILLIN G. FAMILY HISTORY: Noncontributory. SOCIAL HISTORY: As per above. REVIEW OF SYSTEMS: A 10-point review of system is significant for weakness and chronic wounds of both legs. MEDICATIONS: 1. Benicar 20 mg p.o. daily. 2. Folic acid 1 mg p.o. daily. 3. Vitamin B12 2000 mcg p.o. daily. 4. Vitamin C 500 mg p.o. daily. 5. Vitamin D3 2000 units p.o. daily. 6. Actos 30 mg p.o. daily. 7. Singulair 10 mg p.o. at bedtime. 8. Lipitor 40 mg p.o. at bedtime. 9. Glucophage 1000 mg p.o. at bedtime. 10. Advair 2 puffs b.i.d. 11. Tylenol 1000 mg p.o. q.8 hours p.r.n. mild pain. 12. Tramadol 50 mg 1 to 2 tabs po TID PRN moderate pain PHYSICAL EXAMINATION: GENERAL: Significant for an obese female appearing in stated age, lying in bed, in no acute distress. VITAL SIGNS: She is afebrile, pulse 111, respirations 16, blood pressure 100/66, O2 sat 94% on room air. HEENT: Vision, speech, hearing grossly intact. No oral lesions noted. NECK: Supple without mass. HEART: Regular rhythm. CHEST: Clear. ABDOMEN: Obese, soft, nontender, bowel sounds present. EXTREMITIES: Plus edema plus chronic wounds of both legs. MUSCULOSKELETAL: The patient has functional active range of motion in all 4 limbs, but with some limitation in the lower limbs due to obesity and chronic wounds. NEUROLOGIC: Cognition is grossly intact to touch. Sensation is grossly intact to touch. Strength: Bilateral hip flexion 4/5, knee extension on the right 4/5 and on the left 3+/5, knee flexion on the right 3+/5 and on the left 3/5, plantar flexion on the right 5/5 and 4/5 on the left, dorsiflexion 4+/5 on the right and 4/5 on the left. However, strength in both upper limbs is 4/5. She is right hand dominant. IMPRESSION: 1. General debilitation secondary to chronic wounds of both lower limbs associated with chronic anemia and diabetes mellitus. 2. Diabetes mellitus. 3. Chronic kidney disease, stage III. 4. Chronic anemia. 5. Hypertension. 6. Chronic peripheral edema. 7. Chronic wounds of both legs. 8. DVT prophylaxis Lowdose Lovenox ordered Discussed with DR Roblero PLAN: The patient is admitted to inpatient rehabilitation unit for a comprehensive program of inpatient rehabilitation with goal of maximizing level of functional independence prior to discharge home with home health care. The patient will have PT and OT 90 minutes per day each discipline, 5 days a week for 14 days with the above goals in mind. Please see post-admission physician evaluation, which is a separate document for details of plan of care. Speech therapy to do cognitive assessment and treat as indicated. Rehabilitation nursing to assist with bowel, bladder, skin, wound care, medication administration and pain management. director of home health services to assist with discharge planning and community reentry. Follow up with Dr. Roblero, PCP and Dr. Salgado business management specialist per their schedule. Accu-Cheks b.i.d.Lovenox subcut for dvt prophylaxis ESTIMATED LENGTH OF STAY: 14 days. PROGNOSIS: Rehab progress appears good for goal of discharging home with home health care, modified independent to supervision of ADLs and mobility skills. DIET: Carb consistent. CODE STATUS: Full code. Job ID: [id number] DocumentID: [id number] Dictated Date: 12/05/2017 19:01:22 Ceo Ziff Davis Date: 12/05/2017 19:55:37 Dictated By: JANNET GOTTI MD MTDD
[2017-12-05] MEDS: metFORMIN 500 MG (GLUCOPHAGE) TAB PO SCH (21:09)
[2017-12-05] MEDS: MONTELUKAST 10 MG (SINGULAIR) TAB PO SCH (21:09)
[2017-12-05] MEDS: ATORVASTATIN 40 MG (LIPITOR) TABLET PO SCH (21:09)
[2017-12-06 05:08] VITALS: BP 115/70
[2017-12-06] MEDS: PIOGLITAZONE 30MG (ACTOS) TAB PO SCH (05:37)
[2017-12-06] MEDS: ASCORBIC ACID (VIT C) 500 MG TABLET PO SCH (05:37)
[2017-12-06] MEDS: VITAMIN D3 1,000 UNITS (CHOLECALCIFEROL) TABLET PO SCH (05:40)
[2017-12-06] MEDS: FOLIC ACID 1 MG TAB PO SCH (05:40)
[2017-12-06] MEDS: CYANOCOBALAMIN 1,000 MCG (VITAMIN B-12) TABLET PO SCH (05:41)
[2017-12-06] MEDS: OLMESARTAN 20 MG (BENICAR) TABLET PO SCH (08:03)
[2017-12-06] MEDS: RT-ADVAIR HFA 115/21 MCG PER PUFF IH SCH ×2 (09:06→20:06)
--- NOTE | 2017-12-06 09:39 | PM & R (SOAP) Progress Note ---
Subjective This was a face to face visit with the patient. Date Seen by Provider: Dec 06, 2017 Time Seen by Provider: 07:50 Subjective/Events-last exam Patient was seen in her room this AM Adjusting well to unit Patient requests 1 to 2 tramadol for HS leg pain See orders,RN asks about DVT prophylaxis Discussed with PCP by Phone ok for lowdose Lovenox due to chronic anemia-see orders.Has legs elevated to decrease edema Review of Systems Cardiovascular: Edema Musculoskeletal: leg pain Neurological: Weakness Objective Physician Exam Last Set of Vital Signs Vital Signs Date Time Temp Pulse Resp B/P (MAP) Pulse Ox O2 Delivery O2 Flow Rate FiO2 12/06/17 09:13 94 Room Air 12/06/17 05:08 99.3 100 16 115/70 (85) Capillary Refill : Less Than 3 Seconds I&O Intake and Output 12/06/17 00:00 Intake Total 300 ml Balance 300 ml Intake Oral 300 ml Daily Weight Change No General: Alert, Oriented X3, Cooperative, No Acute Distress HEENT: Atraumatic, PERRLA, EOMI, Mucous Memb Moist/[place] Neck: Supple, No JVD Lungs: Clear to Auscultation Heart: Regular Rate Abdomen: Normal Bowel Sounds, Soft, No Tenderness, Other (obese) Extremities: Other (Chronic edema with wounds both shins RT >left) Skin: Other (Chronic wounds both legs RT > left) Neuro: Other (Weaknee BLES) Results Lab Data Laboratory Tests 12/05/17 16:06: Glucometer 129H 12/06/17 04:59: Glucometer 79 Assessment/Plan Assessment and Plan General debil secondary to chronic wounds both legs DR Salgado following Chronic anemia following Chronic K D stage 3 DM HTN Chronic peripheral edema Chronic wounds both legs DVT prophylaxis Lowdose Lovenox Plan Continue PT/Ot ST has signed off Tramadol dose adjusted Lovenox subcut ordered F/U with DR salgado and edward PCP Team Conference 12-11-17 Co-Morbidities that are continuing to impact the rehab process: (include details ) JANNET GOTTI MD Dec 06, 2017 09:39
--- NOTE | 2017-12-06 10:01 | Physical Therapy Daily Note ---
PT Daily Note-Current Subjective pt in bed pre tx, agrees to PT, pain 5/10 in bilat LEs below the knee due to wounds Appearance pt on toilet for BM post tx, instructed to use call light when finished Mental Status Patient Orientation: Person, Place, Time Transfers Functional [place] Measure 0=Not Assessed/NA 4=Minimal Assistance 1=Total Assistance 5=Supervision or Setup 2=Maximal Assistance 6=Modified [place] 3=Moderate Assistance 7=Complete IndependenceIRFPAI Quality Coding Scale 6 Independent with activity with or without an assistive device 5 Patient requires set up or clean up by helper. Patient completes activity by themselves 4 Supervision or touching assist (CGA). [place] provide cues , steadying assist 3 The helper provides less than half the effort to complete the activity 2 The helper provides more than half the effort to complete the activity 1 Dependent. The helper does all the effort to complete an activity 7 Patient refused to complete or attempt activity 9 The patient did not perform the activity before the current illness or injury 88 Not attempted due to Medical conditions or safety concerns Transfers (B, C, W/C) (FIM): 4 Scootin Rollin Supine to/from Sit: 3 Sit to/from Stand: 4 Bed to/from Chair: 4 supine->sit SBA, sit->supine modA w/ getting both legs into bed, sit<->stand Scotty, pt does well pushing off/reaching back for chair/bed Weight Bearing Right Lower Extremity: Right Full Weight Bearing Left Lower Extremity: Left Full Weight Bearing Gait Training Does the Patient Walk?: Yes Gait (FIM): 2 Distance (FIM): 1=090-11 ft Distance: 60',20' Gait Level of Assist: 4 Gait Persons Needed: 1 Gait Assistive Device: FWW pt ambulates w/ FWW and CGA, gait is very slow but steady and no LOB, pt demonstrates flexed posture at hips and needs cues to stand up straight Wheelchair Training Does the Pt Use a Wheelchair?: Yes Wheelchair (FIM): 1 Wheelchair Distance: 1=up to 49 ft Distance: 60',120' Wheelchair Level of Assist: 1 Type of Wheelchair: Manual Exercises Seated Therapy Exercises: Ankle pumps, Long arc quads, Hip flexion, Hip abd/add Seated Reps: 20 Treatments gait training, functional strengthening Assessment Current Status: Fair Progress improved mobility and gait distance PT Short Term Goals Short Term Goals Time Frame: Dec 12, 2017 Transfers (B,C,W/C) (FIM): 4 Gait (FIM): 2 Gait Distance Comment: 100' Gait Level of Assist: 4 Gait Assistive Device: FWW Wheelchair Distance: 150' PT Sales Support Manager Goals Fdc Goals PT Fdc Goals Time Frame: Dec 26, 2017 Transfers (B,C,W/C) (FIM): 5 Sit to Lying (QC): 4 Lying-Sitting on Side/Bed(QC): 4 Sit to Stand (QC): 4 Rollin Roll Left to Right (QC): 4 Chair/Iml-fb-Tbotn Xfer(QC): 4 Car Transfer (QC): 4 Does the Patient Walk: Yes Gait (FIM): 5 Distance: 150' Walk 10 feet (QC): 4 Walk 10ft-Uneven Surface(QC): 4 Walk 50ft with 2 Turns (QC): 4 Walk 150 ft (QC): 4 Gait Level of Assist: 5 Gait Assistive Device: FWW Stairs (FIM): 2 # of Steps: 4 1 Step (curb) (QC): 4 4 Steps (QC): 4 12 Steps (QC): 4 Stairs Level Of Assist: 4 PT Plan Problem List Problem List: Activity Tolerance, Functional Strength, Safety, Balance, Gait, Transfer, Bed Mobility, ROM Treatment/Plan Treatment Plan: Continue Plan of Care Treatment Plan: Bed Mobility, Concurrent Therapy, Education, Functional Activity Yimi, Functional Strength, Group Therapy, Gait, Safety, Therapeutic Exercise, Transfers Treatment Duration: Dec 26, 2017 Frequency: Modified Program (IRF) Estimated Hrs Per Day: 1.5 hours per day Patient and/or Family Agrees t: Yes Safety Risks/Education Patient Education: Gait Training, Transfer Techniques, Correct Positioning, Safety Issues Teaching Recipient: Patient Teaching Methods: Demonstration, Discussion Response to Teaching: Reinforcement Needed Time/GCodes Time In: 0900 Time Out: 1000 Total Billed Treatment Time: 60 Total Billed Treatment 1 visit GT 30' EX 30' RICO QUEZADA PT Dec 06, 2017 10:01
--- NOTE | 2017-12-06 11:29 | Occupational Ther Daily Note ---
OT Current Status-Daily Note Subjective Pt seen in room, up on BSC over toilet, agreeable to OT. Pain not mentioned. Appearance Alert, cooperative Mental Status/Objective Functional [place] Measure 0=Not Assessed/NA 4=Minimal Assistance 1=Total Assistance 5=Supervision or Setup 2=Maximal Assistance 6=Modified [place] 3=Moderate Assistance 7=Complete [place] ADL-Treatment Pt was able to get pants off over feet but with difficulty, kicked shoes off. Managed hygiene on BSC, then got up off BSC over toilet with SBA but cues for hand placement. Pt educ on why to push off rather than pull up to get off toilet. Walked slowly with CGA, BSC to shower, a few feet away. Pt educ mod technique to get into shower. Some difficulty sidestepping into/out of shower, CGA, using FWW and grab bars but able to sit down and get back up from shower bench with SBA, grab bars. Pt removed dressings on lower legs herself but sustained leaning is difficult due to body habitus. Pt washed and dried all parts except bottom and back, using shower bench, grab bars, hand held shower. Doffed shirt without help but min assist to don shirt, due to decreased range L shoulder. Help to get pants on over feet and to pull them up over bottom, SBA to stand. Able to slip shoes on. Walked slowly with FWW to bed, with flexed hips , cues to get closer to walker, extend arms. Cues for hand placement to sit EOB. Mod assist to get both legs into bed. Pt left up in bed for dressing changes to lower legs, all needs met. Functional [place] Measure 0=Not Assessed/NA 4=Minimal Assistance 1=Total Assistance 5=Supervision or Setup 2=Maximal Assistance 6=Modified [place] 3=Moderate Assistance 7=Complete IndependenceIRFPAI Quality Coding Scale 6 Independent with activity with or without an assistive device 5 Patient requires set up or clean up by helper. Patient completes activity by themselves 4 Supervision or touching assist (CGA). [place] provide cues , steadying assist 3 The helper provides less than half the effort to complete the activity 2 The helper provides more than half the effort to complete the activity 1 Dependent. The helper does all the effort to complete an activity 7 Patient refused to complete or attempt activity 9 The patient did not perform the activity before the current illness or injury 88 Not attempted due to Medical conditions or safety concerns Bathing (FIM): 4 (Shower bench, grab bar, hand held shower) Bathing Location: L Arm, R Arm, L Upper Leg, R Upper Leg, L Lower Leg ( including foot), R Lower Leg (including foot), Chest, Abdomen, Perineal Area Shower/Bathe Self (QC): 3 Upper Body (FIM): 4 (Min assist) Upper Body Dressing (QC): 3 Lower Body Dressing (FIM): 3 (Help to get pants on over feet, pull them up over bottom, but able to push them down and take them off feet. Stand SBA, FWW) Lower Body Dressing (QC): 3 On/Off Footwear (QC): 5 (setup, slip on shoes. No socks) Toileting (FIM): 3 (Completes hygiene and pants down but help pants up over hips) Transfers (B, C, W/C) (FIM): 3 Toilet/Commode Transfer (FIM): 5 (SBA, BSC) Shower Transfer(FIM): 4 (CGA, shower bench, grab bars, FWW) Education OT Patient Education: Modified ADL techniques, Progress toward Goal/Update tx plan, Purpose of tx/functional activities, Safety issues, Transfer techniques, Use of adapted equipment Teaching Recipient: Patient Teaching Methods: Demonstration, Discussion Response to Teaching: Verbalize Understanding, Return Demonstration, Reinforcement Needed OT Short Term Goals Short Term Goals Time Frame: Dec 12, 2017 Toileting(FIM): 5 Transfers (B,C,W/C) (FIM): 4 Toilet/Commode Transfer(FIM): 5 Additional Short Term Goals: 1-Demonstrate ADL Tasks, 2-Verbalize Understanding , 3-ImproveStrength/Yimi 1=Demonstrate adherence to instructed precautions during ADL tasks. 2=Patient will verbalize/demonstrate understanding of assistive devices/ modifications for ADL. 3=Patient will improve strength/tolerance for activity to enable patient to perform ADL's. OT Fci Goals Fci Goals Time Frame: Dec 26, 2017 Eating (FIM): 7 Eating (QC): 6 Groomin Oral Hygiene (QC): 6 Bathing(FIM): 6 Shower/Bathe Self (QC): 6 Upper Body Dressing(FIM): 6 Upper Body Dressing (QC): 6 Lower Body Dressing(FIM): 6 Lower Body Dressing (QC): 6 On/Off Footwear (QC): 6 Toileting(FIM): 6 Toileting Hygiene (QC): 6 Toilet/Commode Transfer(FIM): 6 Toilet/Commode Transfer (QC): 6 Shower Transfer(FIM): 6 Additional Goals: 1-Demonstrate ADL Tasks, 2-Verbalize Understanding, 3- ImproveStrength/Yimi 1=Demonstrate adherence to instructed precautions during ADL tasks. 2=Patient will verbalize/demonstrate understanding of assistive devices/ modifications for ADL. 3=Patient will improve strength/tolerance for activity to enable patient to perform ADL's. OT Education/Plan Problem List/Assessment Pt would benefit from skilled OT to increase her independence in basic self care to allow her to safely return to her home Discharge Recommendations Plan/Recommendations: Continue POC Treatment Plan/Plan of Care Patient would benefit from OT for education, treatment and training to promote independence in ADL's, mobility, safety and/or upper extremity function for ADL' s. Plan of Care: ADL Retraining, Functional Mobility, Group Exercise/Act as Ind ( education, exercise, functional activity, activity tolerance, functional mobility, socialization), UE Funct Exercise/Act, UE Neuromus Re-Ed/Coord Treatment Duration: Dec 26, 2017 Frequency: At least 5 of 7 days/Wk (IRF) Estimated Hrs Per Day: 1.5 hours per day Agreement: Yes Rehab Potential: Good Time/GCodes Start Time: 10:00 Stop Time: 11:15 Total Time Billed (hr/min): 75 Billed Treatment Time visit, 75 minutes ADL ASHLI MEZA OT Dec 06, 2017 11:29
[2017-12-06] MEDS: ENOXAPARIN 40 MG/0.4 ML (LOVENOX) SYR SC SCH ×2 (12:01→20:23)
--- NOTE | 2017-12-06 14:11 | Occupational Ther Daily Note ---
OT Current Status-Daily Note Subjective Pt seen in room, up in bed, legs elevated, no pain mentioned. Mental Status/Objective Functional [place] Measure 0=Not Assessed/NA 4=Minimal Assistance 1=Total Assistance 5=Supervision or Setup 2=Maximal Assistance 6=Modified [place] 3=Moderate Assistance 7=Complete [place] ADL-Treatment Bed repositioned for pt to brush teeth. Able to do so with setup. Repositioned back with legs elevated due to wounds and edema in LEs. Cont with drainage, R LE greater than L. Pt left up in bed, 4 rails up, all needs met. Functional [place] Measure 0=Not Assessed/NA 4=Minimal Assistance 1=Total Assistance 5=Supervision or Setup 2=Maximal Assistance 6=Modified [place] 3=Moderate Assistance 7=Complete IndependenceIRFPAI Quality Coding Scale 6 Independent with activity with or without an assistive device 5 Patient requires set up or clean up by helper. Patient completes activity by themselves 4 Supervision or touching assist (CGA). [place] provide cues , steadying assist 3 The helper provides less than half the effort to complete the activity 2 The helper provides more than half the effort to complete the activity 1 Dependent. The helper does all the effort to complete an activity 7 Patient refused to complete or attempt activity 9 The patient did not perform the activity before the current illness or injury 88 Not attempted due to Medical conditions or safety concerns Grooming (FIM): 5 Oral Hygiene (QC): 5 (setup) Education OT Patient Education: Purpose of tx/functional activities Teaching Recipient: Patient Teaching Methods: Discussion Response to Teaching: Verbalize Understanding OT Short Term Goals Short Term Goals Time Frame: Dec 12, 2017 Toileting(FIM): 5 Transfers (B,C,W/C) (FIM): 4 Toilet/Commode Transfer(FIM): 5 Additional Short Term Goals: 1-Demonstrate ADL Tasks, 2-Verbalize Understanding , 3-ImproveStrength/Yimi 1=Demonstrate adherence to instructed precautions during ADL tasks. 2=Patient will verbalize/demonstrate understanding of assistive devices/ modifications for ADL. 3=Patient will improve strength/tolerance for activity to enable patient to perform ADL's. OT Detention Goals Bi Application Developer Goals Time Frame: Dec 26, 2017 Eating (FIM): 7 Eating (QC): 6 Groomin Oral Hygiene (QC): 6 Bathing(FIM): 6 Shower/Bathe Self (QC): 6 Upper Body Dressing(FIM): 6 Upper Body Dressing (QC): 6 Lower Body Dressing(FIM): 6 Lower Body Dressing (QC): 6 On/Off Footwear (QC): 6 Toileting(FIM): 6 Toileting Hygiene (QC): 6 Toilet/Commode Transfer(FIM): 6 Toilet/Commode Transfer (QC): 6 Shower Transfer(FIM): 6 Additional Goals: 1-Demonstrate ADL Tasks, 2-Verbalize Understanding, 3- ImproveStrength/Yimi 1=Demonstrate adherence to instructed precautions during ADL tasks. 2=Patient will verbalize/demonstrate understanding of assistive devices/ modifications for ADL. 3=Patient will improve strength/tolerance for activity to enable patient to perform ADL's. OT Education/Plan Problem List/Assessment Pt would benefit from skilled OT to increase her independence in basic self care to allow her to safely return to her home Discharge Recommendations Plan/Recommendations: Continue POC Treatment Plan/Plan of Care Patient would benefit from OT for education, treatment and training to promote independence in ADL's, mobility, safety and/or upper extremity function for ADL' s. Plan of Care: ADL Retraining, Functional Mobility, Group Exercise/Act as Ind ( education, exercise, functional activity, activity tolerance, functional mobility, socialization), UE Funct Exercise/Act, UE Neuromus Re-Ed/Coord Treatment Duration: Dec 26, 2017 Frequency: At least 5 of 7 days/Wk (IRF) Estimated Hrs Per Day: 1.5 hours per day Agreement: Yes Rehab Potential: Good Time/GCodes Start Time: 13:35 Stop Time: 13:50 Total Time Billed (hr/min): 15 Billed Treatment Time visit, 15 minutes ADL ASHLI MEZA OT Dec 06, 2017 14:11
--- NOTE | 2017-12-06 15:04 | Physical Therapy Daily Note ---
PT Daily Note-Current Subjective pt in bed pre tx, agrees to PT, pain 4/10 in lower legs (wounds), pt toileted before beginning exercises Appearance pt in bed post tx w/ phone, call light, tray, all needs met Mental Status Patient Orientation: Person, Place, Time Transfers Functional [place] Measure 0=Not Assessed/NA 4=Minimal Assistance 1=Total Assistance 5=Supervision or Setup 2=Maximal Assistance 6=Modified [place] 3=Moderate Assistance 7=Complete IndependenceIRFPAI Quality Coding Scale 6 Independent with activity with or without an assistive device 5 Patient requires set up or clean up by helper. Patient completes activity by themselves 4 Supervision or touching assist (CGA). [place] provide cues , steadying assist 3 The helper provides less than half the effort to complete the activity 2 The helper provides more than half the effort to complete the activity 1 Dependent. The helper does all the effort to complete an activity 7 Patient refused to complete or attempt activity 9 The patient did not perform the activity before the current illness or injury 88 Not attempted due to Medical conditions or safety concerns Transfers (B, C, W/C) (FIM): 3 Scootin Rollin Supine to/from Sit: 3 Sit to/from Stand: 4 Bed to/from Chair: 4 sit<->stand Scotty, supine<->sit modA pt needs assistance getting both legs into bed, bed<->chair CGA Weight Bearing Right Lower Extremity: Right Full Weight Bearing Left Lower Extremity: Left Full Weight Bearing Gait Training Does the Patient Walk?: Yes Gait (FIM): 1 Distance (FIM): 1=up to 49 ft Distance: 10'x2 Gait Level of Assist: 4 Gait Persons Needed: 1 Gait Assistive Device: FWW pt ambulates to bathroom using FWW and CGA, pt ambulates out of bathroom but unable to go any further due to fatigue, "wobbly" feeling in legs Exercises Seated Therapy Exercises: Ankle pumps, Long arc quads, Hip flexion, Hip abd/add Seated Reps: 10 Treatments gait training, functional strengthening Assessment Current Status: Poor Progress decreased activity tolerance and gait distance PT Short Term Goals Short Term Goals Time Frame: Dec 12, 2017 Transfers (B,C,W/C) (FIM): 4 Gait (FIM): 2 Gait Distance Comment: 100' Gait Level of Assist: 4 Gait Assistive Device: FWW Wheelchair Distance: 60',120' PT Senior Living Goals Senior Living Goals PT Senior Living Goals Time Frame: Dec 26, 2017 Transfers (B,C,W/C) (FIM): 5 Sit to Lying (QC): 4 Lying-Sitting on Side/Bed(QC): 4 Sit to Stand (QC): 4 Rollin Roll Left to Right (QC): 4 Chair/Sdw-pg-Qbtof Xfer(QC): 4 Car Transfer (QC): 4 Does the Patient Walk: Yes Gait (FIM): 5 Distance: 150' Walk 10 feet (QC): 4 Walk 10ft-Uneven Surface(QC): 4 Walk 50ft with 2 Turns (QC): 4 Walk 150 ft (QC): 4 Gait Level of Assist: 5 Gait Assistive Device: FWW Stairs (FIM): 2 # of Steps: 4 1 Step (curb) (QC): 4 4 Steps (QC): 4 12 Steps (QC): 4 Stairs Level Of Assist: 4 PT Plan Problem List Problem List: Activity Tolerance, Functional Strength, Safety, Balance, Gait, Transfer, Bed Mobility, ROM Treatment/Plan Treatment Plan: Continue Plan of Care Treatment Plan: Bed Mobility, Concurrent Therapy, Education, Functional Activity Yimi, Functional Strength, Group Therapy, Gait, Safety, Therapeutic Exercise, Transfers Treatment Duration: Dec 26, 2017 Frequency: Modified Program (IRF) Estimated Hrs Per Day: 1.5 hours per day Patient and/or Family Agrees t: Yes Safety Risks/Education Patient Education: Gait Training, Transfer Techniques, Correct Positioning, Safety Issues Teaching Recipient: Patient Teaching Methods: Demonstration, Discussion Response to Teaching: Reinforcement Needed Time/GCodes Time In: 1430 Time Out: 1500 Total Billed Treatment Time: 30 Total Billed Treatment 1 visit GT 15' ex 15' RICO QUEZADA PT Dec 06, 2017 15:04
--- NOTE | 2017-12-06 15:58 | Diagnostic Imaging Report ---
INDICATION: Peripheral arterial disease. IMPRESSION: Ankle-brachial indices are significantly decreased, measuring 0.35 on the right and 0.45 on the left. Dictated by: Dictated on workstation # [id number]
[2017-12-06 18:37] VITALS: BP 91/54
[2017-12-06] MEDS: metFORMIN 500 MG (GLUCOPHAGE) TAB PO SCH (20:23)
[2017-12-06] MEDS: MONTELUKAST 10 MG (SINGULAIR) TAB PO SCH (20:23)
[2017-12-06] MEDS: ATORVASTATIN 40 MG (LIPITOR) TABLET PO SCH (20:23)
[2017-12-07 05:04] LABS: BASOPHILS % (AUTO) 0 % (0-10); EOSINOPHILS # (AUTO) 0.1 10^3/uL (0.0-0.3); EOSINOPHILS % (AUTO) 1 % (0-10); HEMATOCRIT 27 % (35-52); HEMOGLOBIN 8.5 G/DL (11.5-16.0); LYMPHOCYTES # (AUTO) 1.1 X 10^3 (1.0-4.0); LYMPHOCYTES % (AUTO) 14 % (12-44); MEAN CORPUSCULAR HEMOGLOBIN 29 PG (25-34); MEAN CORPUSCULAR HGB CONC 32 G/DL (32-36); MEAN CORPUSCULAR VOLUME 92 FL (80-99); MEAN PLATELET VOLUME 8.1 FL (7.4-10.4); MONOCYTES # (AUTO) 0.8 X 10^3 (0.0-1.0); MONOCYTES % (AUTO) 9 % (0-12); NEUTROPHILS # (AUTO) 6.3 X 10^3 (1.8-7.8); NEUTROPHILS % (AUTO) 76 % (42-75); PLATELET COUNT 273 10^3/uL (130-400); RED BLOOD COUNT 2.91 10^6/uL (4.35-5.85); RED CELL DISTRIBUTION WIDTH 15.5 % (10.0-14.5); WHITE BLOOD COUNT 8.3 10^3/uL (4.3-11.0)
[2017-12-07 05:25] LABS: ALANINE AMINOTRANSFERASE 12 U/L (0-55); ALBUMIN 2.5 GM/DL (3.2-4.5); ALKALINE PHOSPHATASE 125 U/L (40-136); BILIRUBIN,TOTAL 0.4 MG/DL (0.1-1.0); BUN/CREATININE RATIO 29; CALCIUM 8.1 MG/DL (8.5-10.1); CARBON DIOXIDE 18 MMOL/L (21-32); CHLORIDE 107 MMOL/L (98-107); CREATININE SERUM 0.84 MG/DL (0.60-1.30); GFR ESTIMATED > 60; GLUCOSE 77 MG/DL (70-105); POTASSIUM 4.6 MMOL/L (3.6-5.0); SODIUM 135 MMOL/L (135-145); TOTAL PROTEIN 4.8 GM/DL (6.4-8.2)
[2017-12-07] MEDS: ASCORBIC ACID (VIT C) 500 MG TABLET PO SCH (05:50)
[2017-12-07] MEDS: FOLIC ACID 1 MG TAB PO SCH (05:50)
[2017-12-07] MEDS: CYANOCOBALAMIN 1,000 MCG (VITAMIN B-12) TABLET PO SCH (05:50)
[2017-12-07] MEDS: PIOGLITAZONE 30MG (ACTOS) TAB PO SCH (05:50)
[2017-12-07] MEDS: VITAMIN D3 1,000 UNITS (CHOLECALCIFEROL) TABLET PO SCH (05:51)
[2017-12-07] MEDS: ACETAMINOPHEN 500 MG TAB (TYLENOL) PO PRN ×2 (05:52→14:21)
[2017-12-07 06:00] VITALS: BP 130/70
[2017-12-07] MEDS: RT-ADVAIR HFA 115/21 MCG PER PUFF IH SCH ×2 (08:11→19:40)
[2017-12-07] MEDS: OLMESARTAN 20 MG (BENICAR) TABLET PO SCH (08:16)
[2017-12-07] MEDS: ENOXAPARIN 40 MG/0.4 ML (LOVENOX) SYR SC SCH ×2 (08:31→21:38)
--- NOTE | 2017-12-07 08:37 | PM & R (SOAP) Progress Note ---
Subjective This was a face to face visit with the patient. Date Seen by Provider: Dec 07, 2017 Time Seen by Provider: 07:40 Subjective/Events-last exam Patient was seen in her room this AM Spoke with RN re hypotension last evening benicar held with Normalization labs noted Anemia stable and Serum Ca low replacement ordered.patient min to mod assist for transfers Date Identified: Dec 07, 2017 Time Identified: 07:00 Medication Intervention: Benicar held for hypoteeeension with improvement Ca added as supplement Review of Systems Neurological: Weakness Objective Physician Exam Last Set of Vital Signs Vital Signs Date Time Temp Pulse Resp B/P (MAP) Pulse Ox O2 Delivery O2 Flow Rate FiO2 12/07/17 08:11 94 Room Air 12/07/17 06:00 97.8 97 16 130/70 (90) Capillary Refill : Less Than 3 Seconds I&O Intake and Output 12/07/17 00:00 Intake Total 840 ml Balance 840 ml Intake Oral 840 ml # Voids 5 General: Alert, Oriented X3, Cooperative, No Acute Distress HEENT: Atraumatic, PERRLA, EOMI, Mucous Memb Moist/[place] Neck: Supple, No JVD Lungs: Clear to Auscultation Heart: Regular Rate Abdomen: Normal Bowel Sounds, Soft, No Tenderness, Other (obese) Extremities: Other (Chronic edema with wounds both shins RT >left) Skin: Other (Chronic wounds both legs RT > left) Neuro: Other ([place]nee BLES) Results Lab Data Laboratory Tests 12/05/17 16:06: Glucometer 129H 12/06/17 04:59: Glucometer 79 12/06/17 17:05: Glucometer 94 12/07/17 04:55: White Blood Count 8.3, Red Blood Count 2.91L, Hemoglobin 8.5L, Hematocrit 27L, Mean Corpuscular Volume 92, Mean Corpuscular Hemoglobin 29, Mean Corpuscular Hemoglobin Concent 32, Red Cell Distribution Width 15.5H, Platelet Count 273, Mean Platelet Volume 8.1, Neutrophils (%) (Auto) 76H, Lymphocytes (%) (Auto) 14 , Monocytes (%) (Auto) 9, Eosinophils (%) (Auto) 1, Basophils (%) (Auto) 0, Neutrophils # (Auto) 6.3, Lymphocytes # (Auto) 1.1, Monocytes # (Auto) 0.8, Eosinophils # (Auto) 0.1, Basophils # (Auto) 0.0, Sodium Level 135, Potassium Level 4.6, Chloride Level 107, Carbon Dioxide Level 18L, Anion Gap 10, Blood Urea Nitrogen 24H, Creatinine 0.84, Estimat Glomerular Filtration Rate > 60, BUN /Creatinine Ratio 29, Glucose Level 77, Calcium Level 8.1L, Corrected Calcium 9.3, Total Bilirubin 0.4, Aspartate Amino Transf (AST/SGOT) 13, Alanine Aminotransferase (ALT/SGPT) 12, Alkaline Phosphatase 125, Total Protein 4.8L, Albumin 2.5L Assessment/Plan Assessment and Plan general debil secondary to chronic wounds Both legs Dr Salgado following Hypotension with hx of HTN richa held with improvemnt Chronic anemia followed by DM controlled Chronic peripheral edema elevate legs Chronic wounds both legs RT >left DR salgado following DVT prophylaxis Lovenox subcut Leg pain tramadol Plan Continue PT/OT/Wound care Next Team Conference 12-11-17 F/U with DR Salgado and PCP Hold Benicar Add CA supplement see orders Co-Morbidities that are continuing to impact the rehab process: (include details ) JANNET GOTTI MD Dec 07, 2017 08:37
--- NOTE | 2017-12-07 11:00 | Physical Therapy Daily Note ---
PT Daily Note-Current Subjective Pt using restroom upon arrival. Pt agrees to PT after finishing in restroom. Pain Location: No Pain Reported Mental Status Patient Orientation: Person, Place, Time, Situation Pt is very talkative and needs VC to stay on task or complete tasks while talking. Transfers Functional [place] Measure 0=Not Assessed/NA 4=Minimal Assistance 1=Total Assistance 5=Supervision or Setup 2=Maximal Assistance 6=Modified [place] 3=Moderate Assistance 7=Complete IndependenceIRFPAI Quality Coding Scale 6 Independent with activity with or without an assistive device 5 Patient requires set up or clean up by helper. Patient completes activity by themselves 4 Supervision or touching assist (CGA). [place] provide cues , steadying assist 3 The helper provides less than half the effort to complete the activity 2 The helper provides more than half the effort to complete the activity 1 Dependent. The helper does all the effort to complete an activity 7 Patient refused to complete or attempt activity 9 The patient did not perform the activity before the current illness or injury 88 Not attempted due to Medical conditions or safety concerns Scootin Rollin Roll Left to Right (QC): 4 Supine to/from Sit: 4 Sit to/from Stand: 5 Sit to Lying (QC): 4 Sit to Stand (QC): 5 Weight Bearing Right Lower Extremity: Right Full Weight Bearing Left Lower Extremity: Left Full Weight Bearing Gait Training Does the Patient Walk?: Yes Distance (FIM): 1=768-54 ft Distance: 60' Walk 10 feet (QC): 5 Walk 50 ft with 2 Turns(QC): 5 Gait Level of Assist: 5 Gait Persons Needed: 1 Gait Assistive Device: FWW Pt walks with a slow trever, fatigues easily & with slight lordotic posture. Exercises Seated Therapy Exercises: Ankle pumps, Long arc quads, Hip flexion, Kicking activity Seated Reps: 20 Treatments Pt finishes toileting and PLASTICATOR assists pt with donning undergarments & pants. Pt is able to to stand at SBA w/VC for hand placement. Pt ambulates to EOB with short rest. Pt completes Seated Ex then PLASTICATOR assists pt with lifting BLE into bed and repositioning. Pt has all needs met at end of tx. Assessment Current Status: Good Progress Pt need VC to stay on task. Pt fatigues easily. PT Short Term Goals Short Term Goals Time Frame: Dec 12, 2017 Transfers (B,C,W/C) (FIM): 4 Gait (FIM): 2 Gait Distance Comment: 100' Gait Level of Assist: 4 Gait Assistive Device: FWW Wheelchair Distance: 60',120' PT Strategy Execution Consultant Goals Fci Goals PT [facility] Goals Time Frame: Dec 26, 2017 Transfers (B,C,W/C) (FIM): 5 Sit to Lying (QC): 4 Lying-Sitting on Side/Bed(QC): 4 Sit to Stand (QC): 4 Rollin Roll Left to Right (QC): 4 Chair/Ssi-hd-Iodbp Xfer(QC): 4 Car Transfer (QC): 4 Does the Patient Walk: Yes Gait (FIM): 5 Distance: 150' Walk 10 feet (QC): 4 Walk 10ft-Uneven Surface(QC): 4 Walk 50ft with 2 Turns (QC): 4 Walk 150 ft (QC): 4 Gait Level of Assist: 5 Gait Assistive Device: FWW Stairs (FIM): 2 # of Steps: 4 1 Step (curb) (QC): 4 4 Steps (QC): 4 12 Steps (QC): 4 Stairs Level Of Assist: 4 PT Plan Problem List Problem List: Activity Tolerance, Functional Strength, Safety, Balance, Gait, Transfer, Bed Mobility Treatment/Plan Treatment Plan: Continue Plan of Care Treatment Plan: Bed Mobility, Concurrent Therapy, Education, Functional Activity Yimi, Functional Strength, Group Therapy, Gait, Safety, Therapeutic Exercise, Transfers Treatment Duration: Dec 26, 2017 Frequency: Modified Program (IRF) Estimated Hrs Per Day: 1.5 hours per day Patient and/or Family Agrees t: Yes Safety Risks/Education Patient Education: Gait Training, Transfer Techniques, Correct Positioning, Safety Issues Teaching Recipient: Patient Teaching Methods: Discussion Response to Teaching: Verbalize Understanding Time/GCodes Time In: 940 Time Out: 1030 Total Billed Treatment Time: 50 Total Billed Treatment 1, FA x2 (30m) & EX (20m) G Codes Necessary: RENNY Small PTA Dec 07, 2017 11:00
--- NOTE | 2017-12-07 11:52 | Consultation-Hospitalist ---
HPI History of Present Illness: HPI/Chief Complaint CC: Medical management during inpatient rehabilitation stay for debility HPI: This is a 72-year-old white female clinic patient of Dr. Roblero who presented to the inpatient rehabilitation facility when she requested help with lower extremity lymphedema and ulcers could no longer make it at home. Adeline at the cancer center arranged this. Dr. Salgado is managing her lower [place] the wounds with a and D ointment and Yonny wrappings. Ultrasound was completed yesterday and Dr. Salgado was pleased with the results. 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 Source: patient, RN/MD Exam Limitations: no limitations Date Seen 12/07/17 Attending Physician Pawan Trimble MD PCP Liu Roblero MD Referring Physician Date of Admission Dec 05, 2017 at 12:15 Home Medications & Allergies Home Medications Reviewed patient Home Medication Reconciliation performed by pharmacy medication reconciliations photonics engineering technician and/or nursing. Patients Allergies have been reviewed. 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) Alcohol Use: Denies Use Recreational Drug Use: No Smoking Status: Never a Smoker Physical Abuse Screen: No Sexual Abuse: No Recent Foreign Travel: No Contact w/other who traveled: No Recent Hopitalizations: No Recent Infectious Disease Expo: No Seasonal Allergies Seasonal Allergies: Yes Past Medical History Respiratory: Asthma, Sleep Apnea Currently Using CPAP: Yes Currently Using BIPAP: No Cardiac: High Cholesterol, Hypertension : No Sexually Transmitted Disease: No HIV/AIDS: No Female Reproductive Disorders: Denies Genitourinary: Bladder Infection Gastrointestinal: Hiatal Hernia Musculoskeletal: Osteoporosis, Arthritis, Chronic Back Pain Endocrine: Diabetes, Non-Insulin dep Are Your Blood Sugars Over 250: No Hearing Impairment: Denies Did You Recieve Any Treatments: No History of Blood Disorders: No Adverse Reaction to Blood Hernández: No Family History Patient reports no known family medical history. Review of Systems Constitutional: see HPI, weakness EENTM: no symptoms reported Respiratory: no symptoms reported Cardiovascular: no symptoms reported Gastrointestinal: no symptoms reported Genitourinary: no symptoms reported Musculoskeletal: muscle pain Skin: see HPI Psychiatric/Neurological: No Symptoms Reported All Other Systems Reviewed Negative Unless Noted: Yes Physical Exam Physical Exam Vital Signs Vital Signs - First Documented 12/05/17 12/05/17 11:30 15:37 Temp 98.0 Pulse 81 Resp 16 B/P (MAP) 103/66 (78) Pulse Ox 94 O2 Delivery Room Air Capillary Refill : Less Than 3 Seconds Height, Weight, BMI Height: 5'6.00" Weight: 274lbs. 9.6oz. 124.944258ie; 44.3 BMI Method: General Appearance: No Apparent Distress, WD/WN, Chronically ill, Obese Eyes: Bilateral Eye Normal Inspection, Bilateral Eye PERRL HEENT: PERRL/EOMI, Normal ENT Inspection, Pharynx Normal Neck: Full Range of Motion, Normal Inspection, Non Tender, Supple, Carotid Bruit Respiratory: Chest Non Tender, Lungs Clear, Normal Breath Sounds, No Accessory Muscle Use, No Respiratory Distress Cardiovascular: Regular Rate, Rhythm, No Edema, No Gallop, No JVD, No Murmur Gastrointestinal: Normal Bowel Sounds, No Organomegaly, No Pulsatile Mass, Non Tender, Soft Back: Normal Inspection, No CVA Tenderness, No Vertebral Tenderness Extremity: Pedal Edema, Swelling, Other (yonny wrappings in place) Neurologic/Psychiatric: Alert, Oriented x3, No Motor/Sensory Deficits, Normal Mood/Affect Skin: Normal Color, Warm/Dry Lymphatic: No Adenopathy Results Results/Procedures Labs Laboratory Tests 12/07/17 04:55 Patient resulted labs reviewed. Assessment/Plan Assessment and Plan Assess & Plan/Chief Complaint Severe lymphedema with ulcerations requiring wound care HTN DM Asthma Plan: Wound care is appreciated Lymphedema management Diagnosis/Problems Diagnosis/Problems (1) Debility Status: Acute (2) Lymphedema Status: Chronic (3) Ulcers of both lower extremities Status: Acute Qualifiers: Non-pressure ulcer stage: limited to breakdown of skin Qualified Codes: L97.911 - Non-pressure chronic ulcer of unspecified part of right lower leg limited to breakdown of skin; L97.921 - Non-pressure chronic ulcer of unspecified part of left lower leg limited to breakdown of skin (4) Obesity Status: Chronic Qualifiers: Obesity type: due to excess calories Obesity classification: adult class 3 (BMI >= 40) Serious obesity comorbidity presence: without serious comorbidity Body mass index: BMI 40.0-44.9 Qualified Codes: E66.01 - Morbid (severe) obesity due to excess calories; Z68.41 - Body mass index (BMI) 40.0- 44.9, adult (5) Hypertension Status: Chronic Qualifiers: Hypertension type: essential hypertension Qualified Codes: I10 - Essential (primary) hypertension (6) Hypotension Status: Acute Qualifiers: Hypotension type: other hypotension type Qualified Codes: I95.89 - Other hypotension (7) Diabetes Status: Chronic Qualifiers: Diabetes mellitus type: type 2 Diabetes mellitus detention insulin use: without detention use Diabetes mellitus complication status: without complication Qualified Codes: E11.9 - Type 2 diabetes mellitus without complications (8) Asthma Status: Chronic Qualifiers: Asthma persistence: intermittent Asthma complication type: unspecified (9) Anemia Status: Chronic Qualifiers: Anemia type: unspecified type Qualified Codes: D64.9 - Anemia, unspecified (10) ADITI on CPAP Status: Chronic (11) Osteoporosis Status: Chronic Qualifiers: Osteoporosis type: unspecified Presence of current pathological fracture: unspecified Qualified Codes: M81.0 - Age-related osteoporosis without current pathological fracture (12) Arthritis Status: Chronic Clinical Quality Measures DVT/VTE Risk/Contraindication: Risk Factor Score Per Nursin RFS Level Per Nursing on Admit: 4+=Very High NELIA MCKEON DO Dec 07, 2017 11:52
[2017-12-07 18:00] VITALS: BP 128/77
[2017-12-07] MEDS: MONTELUKAST 10 MG (SINGULAIR) TAB PO SCH (21:38)
[2017-12-07] MEDS: metFORMIN 500 MG (GLUCOPHAGE) TAB PO SCH (21:38)
[2017-12-07] MEDS: ATORVASTATIN 40 MG (LIPITOR) TABLET PO SCH (21:38)
[2017-12-08 06:00] VITALS: BP 133/76
[2017-12-08] MEDS: FOLIC ACID 1 MG TAB PO SCH (06:32)
[2017-12-08] MEDS: VITAMIN D3 1,000 UNITS (CHOLECALCIFEROL) TABLET PO SCH (06:32)
[2017-12-08] MEDS: CALCIUM CARBONATE 600 MG (CALCARB) TAB PO SCH (06:32)
[2017-12-08] MEDS: ASCORBIC ACID (VIT C) 500 MG TABLET PO SCH (06:32)
[2017-12-08] MEDS: CYANOCOBALAMIN 1,000 MCG (VITAMIN B-12) TABLET PO SCH (06:33)
[2017-12-08] MEDS: PIOGLITAZONE 30MG (ACTOS) TAB PO SCH (06:33)
[2017-12-08] MEDS: ACETAMINOPHEN 500 MG TAB (TYLENOL) PO PRN (06:44)
[2017-12-08] MEDS: OLMESARTAN 20 MG (BENICAR) TABLET PO SCH (09:01)
[2017-12-08] MEDS: ENOXAPARIN 40 MG/0.4 ML (LOVENOX) SYR SC SCH ×2 (09:01→20:46)
[2017-12-08] MEDS: RT-ADVAIR HFA 115/21 MCG PER PUFF IH SCH ×2 (11:03→19:52)
--- NOTE | 2017-12-08 12:07 | Progress Note-Hospitalist ---
Subjective HPI/CC On Admission Date Seen by Provider: Dec 08, 2017 Time Seen by Provider: 11:00 CC: Medical management during inpatient rehabilitation stay for debility HPI: This is a 72-year-old white female clinic patient of Dr. Roblero who presented to the inpatient rehabilitation facility when she requested help with lower extremity lymphedema and ulcers could no longer make it at home. Adeline at the cancer center arranged this. Dr. Salgado is managing her lower redman the wounds with a and D ointment and Yonny wrappings. Ultrasound was completed yesterday and Dr. Salgado was pleased with the results. 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 Subjective/Events-last exam Patient doing well today Slept for 12 hours Son at bedside Cough noted today and doesn't usually have asthma problems Coarse breath sounds with wheezing noted bilaterally but no respiratory distress so will initiate albuterol nebulizer treatments maintain her Advair twice daily initiate incentive spirometry and get out of bed and check chest x- ray No pain is reported currently being on Ultram and Tylenol Dressings changed per Dr. Salgado order + BM Review of Systems General: Fatigue Pulmonary: Cough Objective Exam Vital Signs Vital Signs Date Time Temp Pulse Resp B/P (MAP) Pulse Ox O2 Delivery O2 Flow Rate FiO2 12/08/17 11:05 Room Air 12/08/17 09:00 94 12/08/17 06:00 98.9 97 16 133/76 (95) Capillary Refill : Less Than 3 Seconds General Appearance: No Apparent Distress, WD/WN, Chronically ill, Obese Respiratory: Chest Non Tender, No Accessory Muscle Use, No Respiratory Distress , Crackles, Decreased Breath Sounds, Wheezing Cardiovascular: Regular Rate, Rhythm, No Edema, No Gallop, No JVD, No Murmur, Normal Peripheral Pulses Extremity: Pedal Edema Neurologic/Psychiatric: Alert, Oriented x3, No Motor/Sensory Deficits, Normal Mood/Affect Skin: Normal Color, Warm/Dry Results/Procedures Lab Patient resulted labs reviewed. Assessment/Plan Assessment and Plan Assess & Plan/Chief Complaint Severe lymphedema with ulcerations requiring wound care HTN DM Asthma with current exacerbation Plan: Wound care is appreciated Lymphedema management Albuterol neb treatments Incentive spirometer Check CXR Diagnosis/Problems Diagnosis/Problems (1) Wheezing Status: Acute (2) Debility Status: Acute (3) Lymphedema Status: Chronic (4) Ulcers of both lower extremities Status: Acute Qualifiers: Non-pressure ulcer stage: limited to breakdown of skin Qualified Codes: L97.911 - Non-pressure chronic ulcer of unspecified part of right lower leg limited to breakdown of skin; L97.921 - Non-pressure chronic ulcer of unspecified part of left lower leg limited to breakdown of skin (5) Obesity Status: Chronic Qualifiers: Obesity type: due to excess calories Obesity classification: adult class 3 (BMI >= 40) Serious obesity comorbidity presence: without serious comorbidity Body mass index: BMI 40.0-44.9 Qualified Codes: E66.01 - Morbid (severe) obesity due to excess calories; Z68.41 - Body mass index (BMI) 40.0- 44.9, adult (6) Hypertension Status: Chronic Qualifiers: Hypertension type: essential hypertension Qualified Codes: I10 - Essential (primary) hypertension (7) Hypotension Status: Acute Qualifiers: Hypotension type: other hypotension type Qualified Codes: I95.89 - Other hypotension (8) Diabetes Status: Chronic Qualifiers: Diabetes mellitus type: type 2 Diabetes mellitus long term care social worker insulin use: without long term care social worker use Diabetes mellitus complication status: without complication Qualified Codes: E11.9 - Type 2 diabetes mellitus without complications (9) Asthma Status: Chronic Qualifiers: Asthma persistence: intermittent Asthma complication type: unspecified (10) Anemia Status: Chronic Qualifiers: Anemia type: unspecified type Qualified Codes: D64.9 - Anemia, unspecified (11) ADITI on CPAP Status: Chronic (12) Osteoporosis Status: Chronic Qualifiers: Osteoporosis type: unspecified Presence of current pathological fracture: unspecified Qualified Codes: M81.0 - Age-related osteoporosis without current pathological fracture (13) Arthritis Status: Chronic Clinical Quality Measures DVT/VTE Risk/Contraindication: Risk Factor Score Per Nursin RFS Level Per Nursing on Admit: 4+=Very High NELIA MCKEON DO Dec 08, 2017 12:07
[2017-12-08] MEDS: RT-ALBUTEROL SULF 2.5 MG/3 ML PRE-MIX VIAL INH SCH ×2 (15:31→19:52)
[2017-12-08 18:38] VITALS: BP 140/78
[2017-12-08] MEDS: metFORMIN 500 MG (GLUCOPHAGE) TAB PO SCH (20:46)
[2017-12-08] MEDS: MONTELUKAST 10 MG (SINGULAIR) TAB PO SCH (20:46)
[2017-12-08] MEDS: ATORVASTATIN 40 MG (LIPITOR) TABLET PO SCH (20:46)
[2017-12-09] MEDS: ACETAMINOPHEN 500 MG TAB (TYLENOL) PO PRN ×2 (01:05→13:03)
[2017-12-09 05:05] VITALS: BP 102/63
[2017-12-09] MEDS: ASCORBIC ACID (VIT C) 500 MG TABLET PO SCH (06:00)
[2017-12-09] MEDS: CALCIUM CARBONATE 600 MG (CALCARB) TAB PO SCH (06:00)
[2017-12-09] MEDS: PIOGLITAZONE 30MG (ACTOS) TAB PO SCH (06:00)
[2017-12-09] MEDS: FOLIC ACID 1 MG TAB PO SCH (06:00)
[2017-12-09] MEDS: VITAMIN D3 1,000 UNITS (CHOLECALCIFEROL) TABLET PO SCH (06:00)
[2017-12-09] MEDS: CYANOCOBALAMIN 1,000 MCG (VITAMIN B-12) TABLET PO SCH (06:00)
[2017-12-09] MEDS: RT-ALBUTEROL SULF 2.5 MG/3 ML PRE-MIX VIAL INH SCH ×4 (07:00→20:33)
[2017-12-09] MEDS: ENOXAPARIN 40 MG/0.4 ML (LOVENOX) SYR SC SCH ×2 (08:41→20:43)
[2017-12-09] MEDS: OLMESARTAN 20 MG (BENICAR) TABLET PO SCH (08:41)
--- NOTE | 2017-12-09 10:53 | Physical Therapy Daily Note ---
PT Daily Note-Current Subjective Pt agrees to Rx, states she has progressively gotten weaker at home, significant weight loss and is being treated for blood disorder, low hemoglobin/ anemia Pain Numeric Pain Scale: 0-No Pain Mental Status Patient Orientation: Normal For Age very talkative and moves very slowly Transfers Functional [place] Measure 0=Not Assessed/NA 4=Minimal Assistance 1=Total Assistance 5=Supervision or Setup 2=Maximal Assistance 6=Modified [place] 3=Moderate Assistance 7=Complete IndependenceIRFPAI Quality Coding Scale 6 Independent with activity with or without an assistive device 5 Patient requires set up or clean up by helper. Patient completes activity by themselves 4 Supervision or touching assist (CGA). Heth provide cues , steadying assist 3 The helper provides less than half the effort to complete the activity 2 The helper provides more than half the effort to complete the activity 1 Dependent. The helper does all the effort to complete an activity 7 Patient refused to complete or attempt activity 9 The patient did not perform the activity before the current illness or injury 88 Not attempted due to Medical conditions or safety concerns Transfers (B, C, W/C) (FIM): 3 Scootin Rollin Supine to/from Sit: 3 (needed assist LEs into bed) Sit to/from Stand: 5 (from higher surface) Bed to/from Chair: 4 Weight Bearing Right Lower Extremity: Right Full Weight Bearing Left Lower Extremity: Left Full Weight Bearing Gait Training Does the Patient Walk?: Yes Gait (FIM): 2 Distance (FIM): 1=547-21 ft (100,75,85) Gait Level of Assist: 4 Gait Persons Needed: 1 Gait Assistive Device: FWW slow, flexed at trunk Exercises Supine Ex: Bridging, Ankle pumps, Quad Set, Rolling, Glut sets, Heel Slides, Scooting, Straight leg raise, Hip abd/add Supine Reps: 15 Seated Therapy Exercises: Ankle pumps, Sit to stand, Long arc quads, Hip flexion Seated Reps: 12 Treatments toileted with SBA, very slow process changing pads in panties cleaning self etc Assessment Current Status: Good Progress slow moving ,c/o fatigue and weakness in knees/legs PT Short Term Goals Short Term Goals Time Frame: Dec 12, 2017 Transfers (B,C,W/C) (FIM): 4 Gait (FIM): 2 Gait Distance Comment: 100' Gait Level of Assist: 4 Gait Assistive Device: FWW Wheelchair Distance: 60',120' PT Senior Care Goals Senior Care Goals PT Teaching Manager Goals Time Frame: Dec 26, 2017 Transfers (B,C,W/C) (FIM): 5 Sit to Lying (QC): 4 Lying-Sitting on Side/Bed(QC): 4 Sit to Stand (QC): 4 Rollin Roll Left to Right (QC): 4 Chair/Mcq-sp-Qawur Xfer(QC): 4 Car Transfer (QC): 4 Does the Patient Walk: Yes Gait (FIM): 5 Distance: 150' Walk 10 feet (QC): 4 Walk 10ft-Uneven Surface(QC): 4 Walk 50ft with 2 Turns (QC): 4 Walk 150 ft (QC): 4 Gait Level of Assist: 5 Gait Assistive Device: FWW Stairs (FIM): 2 # of Steps: 4 1 Step (curb) (QC): 4 4 Steps (QC): 4 12 Steps (QC): 4 Stairs Level Of Assist: 4 PT Plan Treatment/Plan Treatment Plan: Continue Plan of Care Treatment Plan: Bed Mobility, Concurrent Therapy, Education, Functional Activity Yimi, Functional Strength, Group Therapy, Gait, Safety, Therapeutic Exercise, Transfers Treatment Duration: Dec 26, 2017 Frequency: Modified Program (IRF) Estimated Hrs Per Day: 1.5 hours per day Patient and/or Family Agrees t: Yes Safety Risks/Education Patient Education: Gait Training, Transfer Techniques, Correct Positioning, Disease Process, Safety Issues Teaching Recipient: Patient Teaching Methods: Demonstration, Discussion Response to Teaching: Verbalize Understanding, Return Demonstration, Reinforcement Needed Time/GCodes Time In: 900 Time Out: 1000 Total Billed Treatment Time: 60 Total Billed Treatment 1,FA25m,GT20m,EX15m G Codes Necessary: WERNER Leiva PHYSICAL THERAPY NURSE Dec 09, 2017 10:53
--- NOTE | 2017-12-09 11:41 | Occupational Ther Daily Note ---
OT Current Status-Daily Note Subjective Pt seen in gym, up at edge of tx table, agreeable to OT. No pain mentioned except when dressings were coming off in the shower. Appearance Alert, cooperative Mental Status/Objective Functional [place] Measure 0=Not Assessed/NA 4=Minimal Assistance 1=Total Assistance 5=Supervision or Setup 2=Maximal Assistance 6=Modified [place] 3=Moderate Assistance 7=Complete [place] ADL-Treatment She got up from treatment table with SBA and walked over 100 feet back to her room, taking a recovery break about midpoint. She walked about twice as fast as last week and with SBA, FWW. Once to her room, she was able to get on/off BSC over toilet with SBA, grab bar, FWW and managed to undress without physical assistance but with using dressing stick (after pt education). She indicated that she had been using a quad cane at home, with the same effect. She walked with SBA, FWW to shower and was able to step into shower and get on/off shower bench with SBA, grab bar, shower bench. She did need CGA, FWW to step out of shower stall. She was able to take manju wraps off lower legs and completed taking dressing off while in the shower. She washed and dried all areas, using hand held shower, grab bar, shower bench, setup. She had help putting on her underwear due to it going over open wounds on her legs but she was able to put her shirt on with setup. She walked much slower to bed and needed cues for walker placement, cues for hand placement for sitting EOB and help getting both legs into bed, due in part to fatigue. Pt left up in bed, nursing changing dressings on lower legs, all needs met. Functional [place] Measure 0=Not Assessed/NA 4=Minimal Assistance 1=Total Assistance 5=Supervision or Setup 2=Maximal Assistance 6=Modified [place] 3=Moderate Assistance 7=Complete IndependenceIRFPAI Quality Coding Scale 6 Independent with activity with or without an assistive device 5 Patient requires set up or clean up by helper. Patient completes activity by themselves 4 Supervision or touching assist (CGA). [place] provide cues , steadying assist 3 The helper provides less than half the effort to complete the activity 2 The helper provides more than half the effort to complete the activity 1 Dependent. The helper does all the effort to complete an activity 7 Patient refused to complete or attempt activity 9 The patient did not perform the activity before the current illness or injury 88 Not attempted due to Medical conditions or safety concerns Bathing (FIM): 5 Bathing Location: L Arm, R Arm, L Upper Leg, R Upper Leg, L Lower Leg ( including foot), R Lower Leg (including foot), Chest, Abdomen, Buttocks, Perineal Area Upper Body (FIM): 5 Lower Body Dressing (FIM): 5 (Mcfall shoes and pants, using dressing stick) Toilet/Commode Transfer (FIM): 5 Shower Transfer(FIM): 4 (CGA getting out of shower. ) Education OT Patient Education: Modified ADL techniques, Progress toward Goal/Update tx plan, Purpose of tx/functional activities, Safety issues, Transfer techniques, Use of adapted equipment Teaching Recipient: Patient Teaching Methods: Demonstration, Discussion Response to Teaching: Verbalize Understanding, Return Demonstration, Reinforcement Needed OT Short Term Goals Short Term Goals Time Frame: Dec 12, 2017 Toileting(FIM): 5 Transfers (B,C,W/C) (FIM): 4 Toilet/Commode Transfer(FIM): 5 Additional Short Term Goals: 1-Demonstrate ADL Tasks, 2-Verbalize Understanding , 3-ImproveStrength/Yimi 1=Demonstrate adherence to instructed precautions during ADL tasks. 2=Patient will verbalize/demonstrate understanding of assistive devices/ modifications for ADL. 3=Patient will improve strength/tolerance for activity to enable patient to perform ADL's. OT Technical Sales Consultant Goals Technical Sales Consultant Goals Time Frame: Dec 26, 2017 Eating (FIM): 7 Eating (QC): 6 Groomin Oral Hygiene (QC): 6 Bathing(FIM): 6 Shower/Bathe Self (QC): 6 Upper Body Dressing(FIM): 6 Upper Body Dressing (QC): 6 Lower Body Dressing(FIM): 6 Lower Body Dressing (QC): 6 On/Off Footwear (QC): 6 Toileting(FIM): 6 Toileting Hygiene (QC): 6 Toilet/Commode Transfer(FIM): 6 Toilet/Commode Transfer (QC): 6 Shower Transfer(FIM): 6 Additional Goals: 1-Demonstrate ADL Tasks, 2-Verbalize Understanding, 3- ImproveStrength/Yimi 1=Demonstrate adherence to instructed precautions during ADL tasks. 2=Patient will verbalize/demonstrate understanding of assistive devices/ modifications for ADL. 3=Patient will improve strength/tolerance for activity to enable patient to perform ADL's. OT Education/Plan Problem List/Assessment Pt would benefit from skilled OT to increase her independence in basic self care to allow her to safely return to her home Discharge Recommendations Plan/Recommendations: Continue POC Treatment Plan/Plan of Care Patient would benefit from OT for education, treatment and training to promote independence in ADL's, mobility, safety and/or upper extremity function for ADL' s. Plan of Care: ADL Retraining, Functional Mobility, Group Exercise/Act as Ind ( education, exercise, functional activity, activity tolerance, functional mobility, socialization), UE Funct Exercise/Act, UE Neuromus Re-Ed/Coord Treatment Duration: Dec 26, 2017 Frequency: At least 5 of 7 days/Wk (IRF) Estimated Hrs Per Day: 1.5 hours per day Agreement: Yes Rehab Potential: Good Time/GCodes Start Time: 10:00 Stop Time: 11:30 Total Time Billed (hr/min): 90 Billed Treatment Time visit, functional activity 15 minutes, ADL 75 minutes ASHLI MEZA OT Dec 09, 2017 11:41
--- NOTE | 2017-12-09 13:06 | Diagnostic Imaging Report ---
EXAMINATION: Chest, PA and lateral views. INDICATION: Wheezing. COMPARISON: Multiple priors, most recent on 11/16/2015. FINDINGS: The lungs are clear, and the pulmonary vasculature is normal. No pneumothorax or significant pleural effusion. The cardiomediastinal silhouette is unchanged, including mild cardiomegaly. IMPRESSION: No acute chest disease. Dictated by: Dictated on workstation # [id number]
--- NOTE | 2017-12-09 13:17 | PM & R (SOAP) Progress Note ---
Subjective This was a face to face visit with the patient. Date Seen by Provider: Dec 09, 2017 Time Seen by Provider: 13:00 Subjective/Events-last exam Patient was seen in her room this afternoon Patient had an acute exacerbation of asthma this weekend DR Kate has addressed with IS and resp treatments.CXR pending Patient min to mod assist for transfers with limited endurance Date Identified: Dec 09, 2017 Time Identified: 13:00 Medication Intervention: Meds adjusted for acute exacerbation of Asthma Review of Systems Pulmonary: Dyspnea Musculoskeletal: leg pain Neurological: Weakness Objective Physician Exam Last Set of Vital Signs Vital Signs Date Time Temp Pulse Resp B/P (MAP) Pulse Ox O2 Delivery O2 Flow Rate FiO2 12/09/17 09:00 95 Room Air 12/09/17 05:05 97.0 100 16 102/63 (76) Capillary Refill : Less Than 3 Seconds I&O Intake and Output 12/09/17 00:00 Intake Total 1000 ml Balance 1000 ml Intake Oral 1000 ml # Voids 3 # Urine Diapers 3 # Bowel Movements 1 General: Alert, Oriented X3, Cooperative, No Acute Distress HEENT: Atraumatic, PERRLA, EOMI, Mucous Memb Moist/[place] Neck: Supple, No JVD Lungs: Clear to Auscultation Heart: Regular Rate Abdomen: Normal Bowel Sounds, Soft, No Tenderness, Other (obese) Extremities: Other (Chronic edema with wounds both shins RT >left) Skin: Other (Chronic wounds both legs RT > left) Neuro: Other (Weaknee BLES) Results Lab Data Laboratory Tests 12/06/17 17:05: Glucometer 94 12/07/17 04:55: White Blood Count 8.3, Red Blood Count 2.91L, Hemoglobin 8.5L, Hematocrit 27L, Mean Corpuscular Volume 92, Mean Corpuscular Hemoglobin 29, Mean Corpuscular Hemoglobin Concent 32, Red Cell Distribution Width 15.5H, Platelet Count 273, Mean Platelet Volume 8.1, Neutrophils (%) (Auto) 76H, Lymphocytes (%) (Auto) 14 , Monocytes (%) (Auto) 9, Eosinophils (%) (Auto) 1, Basophils (%) (Auto) 0, Neutrophils # (Auto) 6.3, Lymphocytes # (Auto) 1.1, Monocytes # (Auto) 0.8, Eosinophils # (Auto) 0.1, Basophils # (Auto) 0.0, Sodium Level 135, Potassium Level 4.6, Chloride Level 107, Carbon Dioxide Level 18L, Anion Gap 10, Blood Urea Nitrogen 24H, Creatinine 0.84, Estimat Glomerular Filtration Rate > 60, BUN /Creatinine Ratio 29, Glucose Level 77, Calcium Level 8.1L, Corrected Calcium 9.3, Total Bilirubin 0.4, Aspartate Amino Transf (AST/SGOT) 13, Alanine Aminotransferase (ALT/SGPT) 12, Alkaline Phosphatase 125, Total Protein 4.8L, Albumin 2.5L 12/07/17 16:42: Glucometer 97 12/08/17 06:34: Glucometer 74 12/08/17 17:21: Glucometer 114H 12/09/17 05:22: Glucometer 87 Assessment/Plan Assessment and Plan General debil secondary to chronic wounds both legs DR Salgado following Hypotension with hx of HTN benicar held with improvement Chronic anemia Acute exacerbation of asthma DM controlled Chronic edema legs elevated Chronic wounds legs DR Salgado following DVT Prophylaxis Lovenox Plan Continue Pt/OT Team Conference 12-11-17 Check CXR and f/u with Hospitalist service Co-Morbidities that are continuing to impact the rehab process: (include details ) JANNET GOTTI MD Dec 09, 2017 13:16
--- NOTE | 2017-12-09 13:20 | Physical Therapy Daily Note ---
PT Daily Note-Current Subjective Agreeable to Rx. States she is having more pain in her knees this afternoon. Pain Numeric Pain Scale: 5-Moderate Pain Location: Right Location Body Site: Knee Pain Description: Ache Mental Status Patient Orientation: Normal For Age talks very much, coughing frequently Transfers Functional [place] Measure 0=Not Assessed/NA 4=Minimal Assistance 1=Total Assistance 5=Supervision or Setup 2=Maximal Assistance 6=Modified [place] 3=Moderate Assistance 7=Complete IndependenceIRFPAI Quality Coding Scale 6 Independent with activity with or without an assistive device 5 Patient requires set up or clean up by helper. Patient completes activity by themselves 4 Supervision or touching assist (CGA). [place] provide cues , steadying assist 3 The helper provides less than half the effort to complete the activity 2 The helper provides more than half the effort to complete the activity 1 Dependent. The helper does all the effort to complete an activity 7 Patient refused to complete or attempt activity 9 The patient did not perform the activity before the current illness or injury 88 Not attempted due to Medical conditions or safety concerns in out bed mod LEs, sit to stand min to CGA Weight Bearing Right Lower Extremity: Right Full Weight Bearing Left Lower Extremity: Left Full Weight Bearing Gait Training Gait Assistive Device: FWW 40-50 ft x 2 with request to stop for rest breaks Exercises Supine Ex: Bridging, Ankle pumps, Quad Set, Glut sets Supine Reps: 20 Treatments toileted with SBA, all movement and activity very slow, pt. very nice but talks nearly without stopping and has to be interrupted to cue her to continue activity/exercise etc Assessment Current Status: Good Progress eels weak and fatigued, needed chair to rest after attempting to begin gait PT Short Term Goals Short Term Goals Time Frame: Dec 12, 2017 Transfers (B,C,W/C) (FIM): 4 Gait (FIM): 2 Gait Distance Comment: 100' Gait Level of Assist: 4 Gait Assistive Device: FWW Wheelchair Distance: 60',120' PT Retirement Goals Lost Charge Card Clerk Goals PT Lost Charge Card Clerk Goals Time Frame: Dec 26, 2017 Transfers (B,C,W/C) (FIM): 5 Sit to Lying (QC): 4 Lying-Sitting on Side/Bed(QC): 4 Sit to Stand (QC): 4 Rollin Roll Left to Right (QC): 4 Chair/Hci-io-Ajygu Xfer(QC): 4 Car Transfer (QC): 4 Does the Patient Walk: Yes Gait (FIM): 5 Distance: 150' Walk 10 feet (QC): 4 Walk 10ft-Uneven Surface(QC): 4 Walk 50ft with 2 Turns (QC): 4 Walk 150 ft (QC): 4 Gait Level of Assist: 5 Gait Assistive Device: FWW Stairs (FIM): 2 # of Steps: 4 1 Step (curb) (QC): 4 4 Steps (QC): 4 12 Steps (QC): 4 Stairs Level Of Assist: 4 PT Plan Treatment/Plan Treatment Plan: Continue Plan of Care Treatment Plan: Bed Mobility, Concurrent Therapy, Education, Functional Activity Yimi, Functional Strength, Group Therapy, Gait, Safety, Therapeutic Exercise, Transfers Treatment Duration: Dec 26, 2017 Frequency: Modified Program (IRF) Estimated Hrs Per Day: 1.5 hours per day Patient and/or Family Agrees t: Yes Safety Risks/Education Patient Education: Gait Training, Transfer Techniques, Correct Positioning, Disease Process, Safety Issues Teaching Recipient: Patient Teaching Methods: Demonstration, Discussion Response to Teaching: Verbalize Understanding, Return Demonstration, Reinforcement Needed Time/GCodes Time In: 1230 Time Out: 1310 Total Billed Treatment Time: 40 Total Billed Treatment 1,GT15m,FA25m G Codes Necessary: WERNER Leiva FUR POINTER Dec 09, 2017 13:20
[2017-12-09] MEDS: RT-ADVAIR HFA 115/21 MCG PER PUFF IH SCH ×2 (16:15→20:33)
[2017-12-09] MEDS ORDERED: RT-ALBUTEROL SULF 2.5 MG/3 ML PRE-MIX VIAL INH PRN (17:00)
[2017-12-09 17:10] VITALS: BP 130/72
--- NOTE | 2017-12-09 17:18 | Diagnostic Imaging Report ---
PROCEDURE: US Bilateral lower extremity arterial. TECHNIQUE: Multiple real-time grayscale images are obtained through both lower extremity arterial systems with color Doppler imaging and color Doppler spectral analysis. INDICATION: Bilateral calf ulcerations, right worse than left. COMPARISON: None. FINDINGS: RIGHT: LINE O SCRIBE OPERATOR : 206 cm/sec Profunda : 102 cm/sec SFA prox: 180 cm/sec SFA mid: 115 cm/sec SFA distal: 110 cm/sec Popliteal mid: 91 cm/sec POULTRY BARN MANAGER : Not seen Dorsalis Pedis : 98 cm/sec LEFT: LINE O SCRIBE OPERATOR : 202 cm/sec Profunda : 134 cm/sec SFA prox: 156 cm/sec SFA mid: 93 cm/sec SFA distal: 119 cm/sec Popliteal mid: 58 cm/sec POULTRY BARN MANAGER : 78 cm/sec Dorsalis Pedis : 101 cm/sec Biphasic or triphasic waveforms are seen in the left lower extremity, with the exception of the posterior tibial artery which demonstrates monophasic waveforms. The left dorsalis pedis demonstrates biphasic waveforms. In the right lower extremity, there are biphasic or triphasic waveforms throughout, with the exception of possibly the popliteal artery. Overall the examination is suboptimal due to body habitus. No definite focal stenosis is seen. IMPRESSION: Suboptimal examination due to body habitus. No focal stenosis is seen. There are monophasic waveforms in the left posterior tibial artery and the right posterior tibial artery is not well seen. The dorsalis pedis demonstrates normal flow bilaterally. Dictated by: Dictated on workstation # [id number]
--- NOTE | 2017-12-09 17:31 | Individualized Plan of Care ---
Individualized Plan of Care Rehab Nursing IPOC Order Admission Date Dec 05, 2017 at 12:15 Current Orders Orders Pt Evaluate/Treat Request (12/05/17 08:14) Request Ot Evaluate & Treat (12/05/17 08:14) Request For Cognitive Services (12/05/17 08:14) Weight Bearing Status (12/05/17 08:14) Patient Visit (12/05/17 ) Pt Eval Moderate Complexity (12/05/17 ) Gait Training, Ea 15 Min (12/05/17 ) Functional Activities, Ea 15 (12/05/17 ) Cho 60g/M 1snack (16-2000 Prieto) (12/05/17 Lunch) Admission Order(Inpt,Obs,Sdc) (12/05/17 12:49) Consult Internal Medicine (12/05/17 12:49) Folic Acid Tablet (Folic Acid Tablet) (12/06/17 07:00) Cyanocobalamin Tablet (Vitamin B-12 Tabl (12/06/17 07:00) Olmesartan Tablet (Benicar Tablet) (12/06/17 09:00) Metformin Tablet (Glucophage Tablet) (12/05/17 21:00) Ascorbic Acid Tablet (Vitamin C Tablet) (12/06/17 07:00) Cholecalciferol Capsule/Tablet (Vitamin (12/06/17 07:00) Pioglitazone Tablet (Actos Tablet) (12/06/17 07:00) Atorvastatin Tablet (Lipitor) (12/05/17 21:00) Montelukast Tablet (Singulair Tablet) (12/05/17 21:00) Fluticasone/Salmeterol Common (Advair 11 (12/05/17 20:00) Acetaminophen Tablet (Tylenol Tablet) (12/05/17 14:30) Ambulate 08,12,20 (12/05/17 14:27) Sequential Compression Device 08,20 (12/05/17 14:27) Dvt/Vte Risk - Notifiy Physici 08 (12/05/17 14:27) Patient Visit (12/05/17 ) Gait Training, Ea 15 Min (12/05/17 ) Consult Physician (12/05/17 15:57) Advanced Wound Care Dressing O TID PRN (12/05/17 18:21) Us Noninvas Ext 3 Or >[id number] (12/06/17 08:00) Code/Resuscitation (12/05/17 18:45) Tramadol Tablet (Ultram Tablet) (12/05/17 20:00) Patient Visit (12/05/17 ) Patient Visit (12/05/17 ) Speech Sound Lang Comp (12/05/17 ) Pharmacy Communication (Pharmacy Communi (12/06/17 09:00) Enoxaparin Injection (Lovenox Injection) (12/06/17 09:15) Tramadol Tablet (Ultram Tablet) (12/06/17 09:15) Communication For Respiratory (12/06/17 09:07) Patient Visit (12/06/17 ) Exercise Therap, Ea 15 Min (12/06/17 ) Gait Training, Ea 15 Min (12/06/17 ) Gait Training, Ea 15 Min (12/06/17 ) Functional Activities, Ea 15 (12/06/17 ) Pharmacy Communication (Pharmacy Communi (12/06/17 21:00) Cbc With Automated Diff (12/07/17 06:00) Comprehensive Metabolic Panel (12/07/17 06:00) Calcium Carbonate Tablet (Calcarb 600 Ta (12/08/17 07:00) Patient Visit (12/07/17 ) Functional Activities, Ea 15 (12/07/17 ) Exercise Therap, Ea 15 Min (12/07/17 ) Incentive Spirometry Initial (12/08/17 12:06) Incentive Spirometry (Nursing) Q2H (12/08/17 12:06) Albuterol Pre-Mix Nebs (Rt) (Proventil (12/08/17 12:15) Svn Small Volume Nebulizer (12/08/17 12:06) Chest Pa/Lat (2 View) (12/08/17 12:06) Patient Visit (12/09/17 ) Functional Activities, Ea 15 (12/09/17 ) Gait Training, Ea 15 Min (12/09/17 ) Exercise Therap, Ea 15 Min (12/09/17 ) Us Ziggy Lower Ext [id number] (12/09/17 13:48) Albuterol Pre-Mix Nebs (Rt) (Proventil (12/09/17 21:00) Albuterol Pre-Mix Nebs (Rt) (Proventil (12/09/17 17:00) Rt Request For Service (12/09/17 17:00) Rehab Nursing Orders: Ongoing Assess. of Function Status, Disease Management & Educaiton, DVT Prophylaxis, Fall Prevention, Fluid/Electrolyte/Nutrition Mgmt, Infection Prevention, Medication Management & Education, Management of Skin Intergrity, Nutrition Management, Pain Management, Patient/Family Support, Wound Management PT IPOC Problem List: Activity Tolerance, Functional Strength, Safety, Balance, Gait, Transfer, Bed Mobility Treatment Plan: Continue Plan of Care Bed Mobility, Concurrent Therapy, Education, Functional Activity Yimi, Functional Strength, Group Therapy, Gait, Safety, Therapeutic Exercise, Transfers Treatment Duration: Dec 26, 2017 Frequency: Modified Program (IRF) Estimated Hrs Per Day: 1.5 hours per day OT IPOC Problems: Decreased Activ Tolerance, Decreased UE Strength, Dependent Transfers , Impaired I ADL's, Impaired Self-Care Skills OT Treatment, Training and Edu: Yes OT Problems Pt would benefit from skilled OT to increase her independence in basic self care to allow her to safely return to her home Plan of Care: ADL Retraining, Functional Mobility, Group Exercise/Act as Ind ( education, exercise, functional activity, activity tolerance, functional mobility, socialization), UE Funct Exercise/Act, UE Neuromus Re-Ed/Coord Treatment Duration: Dec 26, 2017 Frequency: At least 5 of 7 days/Wk (IRF) Estimated Hrs Per Day: 1.[address] IPOC Speech Therapy Treatment Plan: Discontinue ST Treatment Duration: Dec 09, 2017 Frequency: Modified Program (IRF) (0) Estimated Hrs Per Day: Other (0) Dietitian/Open Hearth Helper Dietitian/Open Hearth Helper to monitor nutritional status and make changes and/or recommendations as needed and work with speech pathology on dietary upgrades as the occur. Physician IPOC Medical Issues being managed closely and that require the 24 hour availability of a physician: Hypotension with HX of HTN Chronic anemia Acute exacerbation of Asthma DM Chronic edeam legs Chronic wounds legs ADITI on cpap IGC code 16 Etiologic DX Iron def anemia Medical Issues: DVT Prophylaxis, Falls Precautions, Infection Protection, Pain Management, Wound Care, Other (List) (as per above) Brief Synthesis of Preadmission Screen, Post-Admission Evaluation, and Therapy Evaluations: 72 yo female who was modified Independent but has had a decline in Functional Jesse due worsening chronic edema both legs associated with chronic wounds Now being seen by DR Salgado cardiac exercise specialist.referred from home by PCP to IRU Had and exeacerbation of Asthma over the weekend and meds adjusted by Hospitalist.PMH as per above including DM and HTN and ADITI on CPap Goal is to return home Modified Independent with decreased edema and pain in legs. Medical Prognosis: Good Anticipated Length of Stay: 12-20-17 Modified Independent for adls and mobility skills with decreased edema both legs Anticipated d/c Destination: Home with [facility] JANNET GOTTI MD Dec 09, 2017 17:31
[2017-12-09] MEDS: ATORVASTATIN 40 MG (LIPITOR) TABLET PO SCH (20:43)
[2017-12-09] MEDS: metFORMIN 500 MG (GLUCOPHAGE) TAB PO SCH (20:43)
[2017-12-09] MEDS: MONTELUKAST 10 MG (SINGULAIR) TAB PO SCH (20:43)
[2017-12-10 05:34] VITALS: BP 128/71
[2017-12-10] MEDS: PIOGLITAZONE 30MG (ACTOS) TAB PO SCH (06:04)
[2017-12-10] MEDS: VITAMIN D3 1,000 UNITS (CHOLECALCIFEROL) TABLET PO SCH (06:05)
[2017-12-10] MEDS: FOLIC ACID 1 MG TAB PO SCH (06:05)
[2017-12-10] MEDS: CALCIUM CARBONATE 600 MG (CALCARB) TAB PO SCH (06:05)
[2017-12-10] MEDS: ASCORBIC ACID (VIT C) 500 MG TABLET PO SCH (06:05)
[2017-12-10] MEDS: ACETAMINOPHEN 500 MG TAB (TYLENOL) PO PRN (06:05)
[2017-12-10] MEDS: CYANOCOBALAMIN 1,000 MCG (VITAMIN B-12) TABLET PO SCH (06:05)
[2017-12-10 07:55] VITALS: BP 110/63
[2017-12-10] MEDS: OLMESARTAN 20 MG (BENICAR) TABLET PO SCH (08:02)
[2017-12-10] MEDS: ENOXAPARIN 40 MG/0.4 ML (LOVENOX) SYR SC SCH ×2 (08:04→21:32)
--- NOTE | 2017-12-10 08:32 | PM & R (SOAP) Progress Note ---
Subjective This was a face to face visit with the patient. Date Seen by Provider: Dec 10, 2017 Time Seen by Provider: 07:50 Subjective/Events-last exam Patient was seen in her room this AM Patient Mod assist for transfers Vascular study equivocable Defer to DR salgado for f/u Patient requests Epoetin Inj she [facility] on an outpatient basis for chronic anemia -Checked with Pharmacist they will so order Date Identified: Dec 10, 2017 Time Identified: 08:25 Medication Intervention: Aranesp ordered for chronic anemia Review of Systems Cardiovascular: Edema Musculoskeletal: leg pain Neurological: Weakness Objective Physician Exam Last Set of Vital Signs Vital Signs Date Time Temp Pulse Resp B/P (MAP) Pulse Ox O2 Delivery O2 Flow Rate FiO2 12/10/17 07:55 109 110/63 (79) 12/10/17 05:34 98.8 18 96 Room Air Capillary Refill : Less Than 3 Seconds I&O Intake and Output 12/10/17 00:00 Intake Total 1720 ml Balance 1720 ml Intake Oral 1720 ml # Voids 4 General: Alert, Oriented X3, Cooperative, No Acute Distress HEENT: Atraumatic, PERRLA, EOMI, Mucous Memb Moist/[place] Neck: Supple, No JVD Lungs: Clear to Auscultation Heart: Regular Rate Abdomen: Normal Bowel Sounds, Soft, No Tenderness, Other (obese) Extremities: Other (Chronic edema with wounds both shins RT >left) Skin: Other (Chronic wounds both legs RT > left) Neuro: Other (Weaknee BLES) Results Lab Data Laboratory Tests 12/07/17 16:42: Glucometer 97 12/08/17 06:34: Glucometer 74 12/08/17 17:21: Glucometer 114H 12/09/17 05:22: Glucometer 87 12/09/17 16:26: Glucometer 112H 12/10/17 04:31: Glucometer 96 Assessment/Plan Assessment and Plan General debil secondary to Chronic wounds both legs DR salgado addressing Hypotension with hx of HTN benicar held with improvement Chronic anemia Acute exacerbation of asthma improved with Meds /Treatments DM controlled Chronic edema both legs elevate Chronic Wounds legs DR Salgado following DVT Prophylaxis Lovenox subcut Plan Continue PT/OT/Wound care Aranesp ordered as per above Resp treatments adjusted Team Conference tomorrow 9-19-18 Co-Morbidities that are continuing to impact the rehab process: (include details ) JANNET GOTTI MD Dec 10, 2017 08:32
[2017-12-10] MEDS: RT-ALBUTEROL SULF 2.5 MG/3 ML PRE-MIX VIAL INH SCH ×2 (08:46→23:07)
[2017-12-10] MEDS: RT-ADVAIR HFA 115/21 MCG PER PUFF IH SCH ×2 (08:49→23:07)
--- NOTE | 2017-12-10 09:59 | Progress Note-Hospitalist ---
Subjective HPI/CC On Admission Date Seen by Provider: Dec 10, 2017 Time Seen by Provider: 09:30 CC: Medical management during inpatient rehabilitation stay for debility HPI: This is a 72-year-old white female clinic patient of Dr. Roblero who presented to the inpatient rehabilitation facility when she requested help with lower extremity lymphedema and ulcers could no longer make it at home. Adeline at the cancer center arranged this. Dr. Salgado is managing her lower redman the wounds with a and D ointment and Yonny wrappings. Ultrasound was completed yesterday and Dr. Salgado was pleased with the results. 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 Subjective/Events-last exam Patient reports some intermittent coughing but denies chest pain or shortness of breath. She does have significant deconditioning and poor stamina although no worse than on admission. She reports some intermittent burning lower extremity had discomfort but is been mild and stable this does not get worse with ambulation. As she reports no sputum production and does have history of asthma. Objective Exam Vital Signs Vital Signs Date Time Temp Pulse Resp B/P (MAP) Pulse Ox O2 Delivery O2 Flow Rate FiO2 12/10/17 09:00 Room Air 12/10/17 08:46 91 12/10/17 07:55 109 110/63 (79) 12/10/17 05:34 98.8 18 Capillary Refill : Less Than 3 Seconds General Appearance: No Apparent Distress, Obese Respiratory: Chest Non Tender, Lungs Clear, Normal Breath Sounds, No Accessory Muscle Use, No Respiratory Distress Cardiovascular: No Edema (1+ brawny edema both lower extremities), No Gallop, No JVD, No Murmur, Tachycardia (Regular) Gastrointestinal: Normal Bowel Sounds, No Organomegaly, No Pulsatile Mass, Non Tender, Soft Results/Procedures Lab Patient resulted labs reviewed. Assessment/Plan Assessment and Plan Assess & Plan/Chief Complaint 1. Multifactorial debility complicated by obesity myelodysplastic anemia for which there have been components of iron deficiency in the past OA of the knees and lower extremity ulcerations with known venous insufficiency. ABIs are quite low suggesting significant peripheral artery disease. Arterial Doppler studies somewhat poor quality don't look as bad although there are monophasic waveforms in the posterior tibial arteries dorsalis pedis flow appears to be relatively normal. The study is admittedly suboptimal and for this reason I discussed the case with Dr. Loera who will come by for evaluation for consideration for arteriography or more definitive evaluation. 2. Myelodysplastic anemia somewhat responsive to erythropoietin with past iron deficiency anemia as well per this patient's report last dose of IV iron was in March. As the patient has been having more ice craving will check iron studies. I suspect that her ferritin level may be falsely elevated due to chronic inflammation from her lower extremity ulcers. If iron saturations are low we'll plan on giving IV iron. 3. Type II diabetes mellitus with weight loss is been under good control. Considering this and lower extremity edema we will DC pioglitazone and continue metformin. 4. Hypertension under good control aided by weight loss. Complex medical management situation due to multiple medical comorbidities. Clinical Quality Measures DVT/VTE Risk/Contraindication: Risk Factor Score Per Nursin RFS Level Per Nursing on Admit: 4+=Very High JOHN ROBLERO MD Dec 10, 2017 09:59
--- NOTE | 2017-12-10 11:23 | Physical Therapy Daily Note ---
PT Daily Note-Current Subjective Pt sitting in recliner upon arrival. Pt agrees to PT. Pt is very talkative, needs VC to stay on task. Pain Numeric Pain Scale: 5-Moderate Pain Location: Right, Left Location Body Site: Knee Pain Description: Ache Mental Status Patient Orientation: Person, Place, Time, Situation Transfers Functional [place] Measure 0=Not Assessed/NA 4=Minimal Assistance 1=Total Assistance 5=Supervision or Setup 2=Maximal Assistance 6=Modified [place] 3=Moderate Assistance 7=Complete IndependenceIRFPAI Quality Coding Scale 6 Independent with activity with or without an assistive device 5 Patient requires set up or clean up by helper. Patient completes activity by themselves 4 Supervision or touching assist (CGA). [place] provide cues , steadying assist 3 The helper provides less than half the effort to complete the activity 2 The helper provides more than half the effort to complete the activity 1 Dependent. The helper does all the effort to complete an activity 7 Patient refused to complete or attempt activity 9 The patient did not perform the activity before the current illness or injury 88 Not attempted due to Medical conditions or safety concerns Scootin Rollin Roll Left to Right (QC): 3 Supine to/from Sit: 4 Sit to/from Stand: 4 Sit to Lying (QC): 4 Sit to Stand (QC): 4 Weight Bearing Right Lower Extremity: Right Full Weight Bearing Left Lower Extremity: Left Full Weight Bearing Gait Training Does the Patient Walk?: Yes Distance (FIM): 3=150 ft Distance: 175' Walk 10 feet (QC): 5 Walk 50 ft with 2 Turns(QC): 5 Walk 150 ft (QC): 5 Gait Level of Assist: 5 Gait Persons Needed: 1 Gait Assistive Device: Walker 4 Wheeled Pt wanted to try ambulating with 4WW from home. Pt walks well but did remind pt of safety when pt fatigues and starts to WB more through UE which will be harder to control 4WW. Wheelchair Training Does the Pt Use a Wheelchair?: No Exercises Supine Ex: Ankle pumps, Quad Set, Glut sets, Heel Slides, Straight leg raise, Hip abd/add Seated Therapy Exercises: Ankle pumps, Sit to stand, Long arc quads, Hip flexion, Kicking activity Seated Reps: 20 (2 sets of 20) Treatments Pt transfers at Min-Mod A especially while in Supine to Sit or Sit to Supine. Pt ambulates in hallway using 4WW at SBA. Pt completes both Seated & Supine Ex. Pt is resting at EOM at end of tx with OT arriving. Assessment Current Status: Fair Progress Pt fatigues quickly, reports pain in B knees & gets SOA with activity. PT Short Term Goals Short Term Goals Time Frame: Dec 12, 2017 Transfers (B,C,W/C) (FIM): 4 Gait (FIM): 2 Gait Distance Comment: 100' Gait Level of Assist: 4 Gait Assistive Device: FWW Wheelchair Distance: 60',120' PT Assembler [employer] [place] Goals Senior Living Goals PT Senior Living Goals Time Frame: Dec 26, 2017 Transfers (B,C,W/C) (FIM): 5 Sit to Lying (QC): 4 Lying-Sitting on Side/Bed(QC): 4 Sit to Stand (QC): 4 Rollin Roll Left to Right (QC): 4 Chair/Noa-no-Kbkjl Xfer(QC): 4 Car Transfer (QC): 4 Does the Patient Walk: Yes Gait (FIM): 5 Distance: 150' Walk 10 feet (QC): 4 Walk 10ft-Uneven Surface(QC): 4 Walk 50ft with 2 Turns (QC): 4 Walk 150 ft (QC): 4 Gait Level of Assist: 5 Gait Assistive Device: FWW Stairs (FIM): 2 # of Steps: 4 1 Step (curb) (QC): 4 4 Steps (QC): 4 12 Steps (QC): 4 Stairs Level Of Assist: 4 PT Plan Problem List Problem List: Activity Tolerance, Functional Strength, Safety, Balance, Gait, Transfer, Bed Mobility Treatment/Plan Treatment Plan: Continue Plan of Care Treatment Plan: Bed Mobility, Concurrent Therapy, Education, Functional Activity Yimi, Functional Strength, Group Therapy, Gait, Safety, Therapeutic Exercise, Transfers Treatment Duration: Dec 26, 2017 Frequency: Modified Program (IRF) Estimated Hrs Per Day: 1.5 hours per day Patient and/or Family Agrees t: Yes Safety Risks/Education Patient Education: Gait Training, Transfer Techniques, Correct Positioning, Safety Issues Teaching Recipient: Patient Teaching Methods: Discussion Response to Teaching: Verbalize Understanding Time/GCodes Time In: 930 Time Out: 1030 Total Billed Treatment Time: 60 Total Billed Treatment 1, FA (15m), GT (20m) & EX x2 (25m) G Codes Necessary: No GEORGI VALDEZAH TEXTILES AND CLOTHING TEACHER Dec 10, 2017 11:22
--- NOTE | 2017-12-10 12:57 | Occupational Ther Daily Note ---
OT Current Status-Daily Note Subjective Pt seen in gym after PT, agreeable o OT. No pain mentioned. Appearance Alert, cooperative Mental Status/Objective Functional [place] Measure 0=Not Assessed/NA 4=Minimal Assistance 1=Total Assistance 5=Supervision or Setup 2=Maximal Assistance 6=Modified [place] 3=Moderate Assistance 7=Complete [place] ADL-Treatment She walked back to her room with SBA, 4WW, taking a brief recovery break. She was able to maneuver 4WW to complete toilet transfer but needed to remove carrier basket. 4WW a little less steady when getting up from BS when she forgot to lock brakes. Toileted and changed pants. Walked back to bed with 4WW but more fatigued and needed skilled cues to get closer to walker, don't rest forearms on walker when walking. Skilled cues for hand placement when getting on to [facility], bed. Pt left up at EOB, all needs met. Functional [place] Measure 0=Not Assessed/NA 4=Minimal Assistance 1=Total Assistance 5=Supervision or Setup 2=Maximal Assistance 6=Modified [place] 3=Moderate Assistance 7=Complete IndependenceIRFPAI Quality Coding Scale 6 Independent with activity with or without an assistive device 5 Patient requires set up or clean up by helper. Patient completes activity by themselves 4 Supervision or touching assist (CGA). [place] provide cues , steadying assist 3 The helper provides less than half the effort to complete the activity 2 The helper provides more than half the effort to complete the activity 1 Dependent. The helper does all the effort to complete an activity 7 Patient refused to complete or attempt activity 9 The patient did not perform the activity before the current illness or injury 88 Not attempted due to Medical conditions or safety concerns Lower Body Dressing (FIM): 4 (Able to take pants off using dressing stick and don shorts and underwear. Stood up with skilled cues but needed help to get pants over bottom. ) Toileting (FIM): 3 (Able to get pants down but not up over bottom and able to manage hygiene. BSC over toilet) Toilet/Commode Transfer (FIM): 5 (SBA, 4WW, grab bar) Other Treatment Pt walked with SBA, 4WW to chair with arms. Cues for hand placement to sit and cues for technique for sit to stand from chair with arms. Pt did 12 minutes bilat UE exercise with arm bike set at 15W resistance, taking a couple brief recovery breaks. Also did arc activity with 1# weight on each arm. Due to old shoulder injury, could not move rings with shortest extension on L UE and able to manage with short ext R UE. Also did nuts and bolts activity with 1# weight. To strengthen arms to help with transfers, mobility, self care. Education OT Patient Education: Modified ADL techniques, Progress toward Goal/Update tx plan, Purpose of tx/functional activities, Safety issues, Transfer techniques Teaching Recipient: Patient Teaching Methods: Demonstration, Discussion Response to Teaching: Verbalize Understanding, Return Demonstration OT Short Term Goals Short Term Goals Time Frame: Dec 12, 2017 Toileting(FIM): 5 Transfers (B,C,W/C) (FIM): 4 Toilet/Commode Transfer(FIM): 5 Additional Short Term Goals: 1-Demonstrate ADL Tasks, 2-Verbalize Understanding , 3-ImproveStrength/Yimi 1=Demonstrate adherence to instructed precautions during ADL tasks. 2=Patient will verbalize/demonstrate understanding of assistive devices/ modifications for ADL. 3=Patient will improve strength/tolerance for activity to enable patient to perform ADL's. OT Intermediate Goals Intermediate Goals Time Frame: Dec 26, 2017 Eating (FIM): 7 Eating (QC): 6 Groomin Oral Hygiene (QC): 6 Bathing(FIM): 6 Shower/Bathe Self (QC): 6 Upper Body Dressing(FIM): 6 Upper Body Dressing (QC): 6 Lower Body Dressing(FIM): 6 Lower Body Dressing (QC): 6 On/Off Footwear (QC): 6 Toileting(FIM): 6 Toileting Hygiene (QC): 6 Toilet/Commode Transfer(FIM): 6 Toilet/Commode Transfer (QC): 6 Shower Transfer(FIM): 6 Additional Goals: 1-Demonstrate ADL Tasks, 2-Verbalize Understanding, 3- ImproveStrength/Yimi 1=Demonstrate adherence to instructed precautions during ADL tasks. 2=Patient will verbalize/demonstrate understanding of assistive devices/ modifications for ADL. 3=Patient will improve strength/tolerance for activity to enable patient to perform ADL's. OT Education/Plan Problem List/Assessment Pt would benefit from skilled OT to increase her independence in basic self care to allow her to safely return to her home Discharge Recommendations Plan/Recommendations: Continue POC Treatment Plan/Plan of Care Patient would benefit from OT for education, treatment and training to promote independence in ADL's, mobility, safety and/or upper extremity function for ADL' s. Plan of Care: ADL Retraining, Functional Mobility, Group Exercise/Act as Ind ( education, exercise, functional activity, activity tolerance, functional mobility, socialization), UE Funct Exercise/Act, UE Neuromus Re-Ed/Coord Treatment Duration: Dec 26, 2017 Frequency: At least 5 of 7 days/Wk (IRF) Estimated Hrs Per Day: 1.5 hours per day Agreement: Yes Rehab Potential: Good Time/GCodes Start Time: 10:30 Stop Time: 12:00 Total Time Billed (hr/min): 90 Billed Treatment Time visit, 65 minutes exercise, 25 minutes ADL ASHLI MEZA OT Dec 10, 2017 12:57
--- NOTE | 2017-12-10 13:13 | Consultation-Cardiology ---
HPI-Cardiology Cardiology Consultation Date of Consultation 12/10/17 Date of Admission Time Seen by Provider: 12:00 Indication: nonhealing foot ulcers HPI 72 years old lady with history of diabetes mellitus, multiple venous ulcers that were treated with venous ablation in the past and he'll. Was having increasing weakness and loss of energy. She has seen Dr. Salgado in the past for leg ulcers. She was admitted to acute rehabilitation and had bilateral leg ulcers. Underwent GEETA which was abnormal,, arterial ultrasound was not diagnostic, it showed a good waveform down to the anterior tibial arteries. Upon my evaluation patient had dressing wrapped around her legs but she had bilateral medial ulcers in her calf and lateral ulcer on the right side. She denied any chest pain, her exercise ability is limited. No palpitation, syncope or near syncopal episodes. She has underlying chronic kidney disease stage III. Last BUN/creatinine were normal. 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 Review of Systems Constitutional: see HPI, dizziness, malaise, weakness EENTM: see HPI, no symptoms reported Respiratory: see HPI, dyspnea on exertion, short of breath Cardiovascular: see HPI, edema Gastrointestinal: no symptoms reported, see HPI Genitourinary: see HPI Musculoskeletal: see HPI, joint pain, muscle pain, muscle cramps, muscle weakness Skin: see HPI, other (multiple ulcers bilaterally) Psychiatric/Neurological: No Symptoms Reported, See HPI Reviewed Test Results Reviewed Test Results Lab Laboratory Tests Test 12/09/17 16:26 12/10/17 04:31 Range/Units Glucometer 112 H 96 70-110 MG/DL Physical Exam Vital Signs Vital Signs - First Documented 12/05/17 12/05/17 11:30 15:37 Temp 98.0 Pulse 81 Resp 16 B/P (MAP) 103/66 (78) Pulse Ox 94 O2 Delivery Room Air Capillary Refill : Less Than 3 Seconds Height, Weight, BMI Height: 5'6.00" Weight: 274lbs. 9.6oz. [id number]; 44.3 BMI Method: General Appearance: No Apparent Distress, WD/WN Eyes: Bilateral Eye Normal Inspection, Bilateral Eye PERRL, Bilateral Eye EOMI HEENT: PERRL/EOMI, TMs Normal, Normal ENT Inspection, Pharynx Normal Neck: Full Range of Motion, Normal Inspection, Non Tender, Supple, Carotid Bruit Respiratory: Chest Non Tender, Lungs Clear, Normal Breath Sounds, No Accessory Muscle Use, No Respiratory Distress Cardiovascular: Regular Rate, Rhythm, No Gallop, No JVD, No Murmur Gastrointestinal: Normal Bowel Sounds, No Organomegaly, No Pulsatile Mass, Non Tender, Soft Back: Normal Inspection, No CVA Tenderness, No Vertebral Tenderness Extremity: Normal Capillary Refill, Pedal Edema, Other (ulcers were wrapped on both legs. Edema, unable to palpate pulse) Neurologic/Psychiatric: Alert, Oriented x3, No Motor/Sensory Deficits, Normal Mood/Affect Skin: Normal Color, Warm/Dry Lymphatic: No Adenopathy A/P-Cardiology Admission Diagnosis Foot ulcer Generalized weakness and debility Chronic venous insufficiency Diabetes mellitus Peripheral arterial disease Assessment/Plan Nonhealing foot ulcers, history of venous stasis ulcers. GEETA was abnormal, ultrasound of the arterial was nondiagnostic, planning to evaluate CT angiogram , hold Glucophage for now, start IV fluid and monitor renal function Generalized weakness and loss of energy, receiving physical therapy. Improving slowly. Shortness of breath on exertion, receiving physical therapy. Chronic kidney disease, started on IV fluid and monitor renal function. Hypertension, continue to monitor blood pressure Hyperlipidemia, monitor lipids. Anemia, myelodysplastic, has been followed by Dr. Troncoso. Morbid obesity, BMI is 44, discussed weight loss and exercise. History of COPD, obstructive sleep apnea using C Pap. Clinical Quality Measures DVT/VTE Risk/Contraindication: Risk Factor Score Per Nursin RFS Level Per Nursing on Admit: 4+=Very High ARIANA BARROS MD Dec 10, 2017 1:13 pm
[2017-12-10] MEDS: NS IV 1000 ML 1,000 ML IV SCH (14:16)
--- NOTE | 2017-12-10 14:20 | Physical Therapy Daily Note ---
PT Daily Note-Current Subjective Pt sitting up in bed visiting with Nurse upon arrival. Pt agrees to PT. Mental Status Patient Orientation: Person, Place, Time, Situation Transfers Functional [place] Measure 0=Not Assessed/NA 4=Minimal Assistance 1=Total Assistance 5=Supervision or Setup 2=Maximal Assistance 6=Modified [place] 3=Moderate Assistance 7=Complete IndependenceIRFPAI Quality Coding Scale 6 Independent with activity with or without an assistive device 5 Patient requires set up or clean up by helper. Patient completes activity by themselves 4 Supervision or touching assist (CGA). [place] provide cues , steadying assist 3 The helper provides less than half the effort to complete the activity 2 The helper provides more than half the effort to complete the activity 1 Dependent. The helper does all the effort to complete an activity 7 Patient refused to complete or attempt activity 9 The patient did not perform the activity before the current illness or injury 88 Not attempted due to Medical conditions or safety concerns Weight Bearing Right Lower Extremity: Right Full Weight Bearing Left Lower Extremity: Left Full Weight Bearing Exercises Supine Ex: Ankle pumps, Quad Set, Glut sets, Heel Slides, Straight leg raise, Hip abd/add Supine Reps: 20 Treatments Pt completes Supine Ex in bed with a couple short rest breaks. Pt given VC to stay on task. Pt resting at end of tx with all needs met. Assessment Current Status: Good Progress Pt needs VC to stay on task. PT Short Term Goals Short Term Goals Time Frame: Dec 12, 2017 Transfers (B,C,W/C) (FIM): 4 Gait (FIM): 2 Gait Distance Comment: 100' Gait Level of Assist: 4 Gait Assistive Device: FWW Wheelchair Distance: 60',120' PT Family Preservation Officer Goals Correction Goals PT Correction Goals Time Frame: Dec 26, 2017 Transfers (B,C,W/C) (FIM): 5 Sit to Lying (QC): 4 Lying-Sitting on Side/Bed(QC): 4 Sit to Stand (QC): 4 Rollin Roll Left to Right (QC): 4 Chair/Jcx-lg-Cumuw Xfer(QC): 4 Car Transfer (QC): 4 Does the Patient Walk: Yes Gait (FIM): 5 Distance: 150' Walk 10 feet (QC): 4 Walk 10ft-Uneven Surface(QC): 4 Walk 50ft with 2 Turns (QC): 4 Walk 150 ft (QC): 4 Gait Level of Assist: 5 Gait Assistive Device: FWW Stairs (FIM): 2 # of Steps: 4 1 Step (curb) (QC): 4 4 Steps (QC): 4 12 Steps (QC): 4 Stairs Level Of Assist: 4 PT Plan Problem List Problem List: Activity Tolerance, Functional Strength, Safety, Balance, Gait, Transfer, Bed Mobility, ROM Treatment/Plan Treatment Plan: Continue Plan of Care Treatment Plan: Bed Mobility, Concurrent Therapy, Education, Functional Activity Yimi, Functional Strength, Group Therapy, Gait, Safety, Therapeutic Exercise, Transfers Treatment Duration: Dec 26, 2017 Frequency: Modified Program (IRF) Estimated Hrs Per Day: 1.5 hours per day Patient and/or Family Agrees t: Yes Safety Risks/Education Patient Education: Correct Positioning, Safety Issues Teaching Recipient: Patient Teaching Methods: Discussion Response to Teaching: Verbalize Understanding Time/GCodes Time In: 1300 Time Out: 1330 Total Billed Treatment Time: 30 Total Billed Treatment 1, EX x2 (30m) G Codes Necessary: RENNY Small CANE PILER Dec 10, 2017 14:20
[2017-12-10 16:44] VITALS: BP 110/50
[2017-12-10] MEDS: MONTELUKAST 10 MG (SINGULAIR) TAB PO SCH (21:32)
[2017-12-10] MEDS: ATORVASTATIN 40 MG (LIPITOR) TABLET PO SCH (21:32)
[2017-12-11] MEDS: NS IV 1000 ML 1,000 ML IV SCH ×3 (00:05→22:37)
[2017-12-11 05:05] VITALS: BP 95/58
[2017-12-11 05:42] LABS: BASOPHILS % (AUTO) 0 % (0-10); EOSINOPHILS # (AUTO) 0.2 10^3/uL (0.0-0.3); EOSINOPHILS % (AUTO) 3 % (0-10); HEMATOCRIT 25 % (35-52); HEMOGLOBIN 7.8 G/DL (11.5-16.0); LYMPHOCYTES # (AUTO) 1.4 X 10^3 (1.0-4.0); LYMPHOCYTES % (AUTO) 19 % (12-44); MEAN CORPUSCULAR HEMOGLOBIN 29 PG (25-34); MEAN CORPUSCULAR HGB CONC 32 G/DL (32-36); MEAN CORPUSCULAR VOLUME 93 FL (80-99); MEAN PLATELET VOLUME 8.1 FL (7.4-10.4); MONOCYTES # (AUTO) 0.9 X 10^3 (0.0-1.0); MONOCYTES % (AUTO) 13 % (0-12); NEUTROPHILS # (AUTO) 4.6 X 10^3 (1.8-7.8); NEUTROPHILS % (AUTO) 65 % (42-75); PLATELET COUNT 311 10^3/uL (130-400); RED BLOOD COUNT 2.68 10^6/uL (4.35-5.85); RED CELL DISTRIBUTION WIDTH 15.6 % (10.0-14.5); WHITE BLOOD COUNT 7.1 10^3/uL (4.3-11.0)
[2017-12-11 06:11] LABS: BUN/CREATININE RATIO 26; CARBON DIOXIDE 19 MMOL/L (21-32); CHLORIDE 108 MMOL/L (98-107); CREATININE SERUM 0.85 MG/DL (0.60-1.30); GFR ESTIMATED > 60; GLUCOSE 94 MG/DL (70-105); POTASSIUM 4.6 MMOL/L (3.6-5.0); SODIUM 135 MMOL/L (135-145)
[2017-12-11] MEDS: ASCORBIC ACID (VIT C) 500 MG TABLET PO SCH (06:23)
[2017-12-11] MEDS: CYANOCOBALAMIN 1,000 MCG (VITAMIN B-12) TABLET PO SCH (06:23)
[2017-12-11] MEDS: FOLIC ACID 1 MG TAB PO SCH (06:23)
[2017-12-11] MEDS: CALCIUM CARBONATE 600 MG (CALCARB) TAB PO SCH (06:24)
[2017-12-11] MEDS: VITAMIN D3 1,000 UNITS (CHOLECALCIFEROL) TABLET PO SCH (06:24)
[2017-12-11] MEDS: RT-ALBUTEROL SULF 2.5 MG/3 ML PRE-MIX VIAL INH SCH ×2 (07:18→20:24)
[2017-12-11] MEDS: RT-ADVAIR HFA 115/21 MCG PER PUFF IH SCH ×2 (07:19→20:24)
--- NOTE | 2017-12-11 08:41 | PM & R (SOAP) Progress Note ---
Subjective This was a face to face visit with the patient. Date Seen by Provider: Dec 11, 2017 Time Seen by Provider: 08:00 Subjective/Events-last exam Patient was seen in her room this AM Appreciate current labs and PCPs and Card note .Patient to have vascular test for circulation today with IVFS being provided first in praparation.Patient Min to mod assist for transfers Date Identified: Dec 11, 2017 Time Identified: 08:00 Medication Intervention: Aranesp ordered for chronic anemia with protocol of CBC being drawn first this AM CBC noted Review of Systems Cardiovascular: Edema Musculoskeletal: leg pain Neurological: Weakness Objective Physician Exam Last Set of Vital Signs Vital Signs Date Time Temp Pulse Resp B/P (MAP) Pulse Ox O2 Delivery O2 Flow Rate FiO2 12/11/17 05:07 91 Room Air 12/11/17 05:05 98.7 93 18 95/58 (70) Capillary Refill : Less Than 3 Seconds I&O Intake and Output 12/11/17 00:00 Intake Total 1760 ml Balance 1760 ml Intake Oral 1760 ml # Voids 5 # Bowel Movements 3 General: Alert, Oriented X3, Cooperative, No Acute Distress HEENT: Atraumatic, PERRLA, EOMI, Mucous Memb Moist/[place] Neck: Supple, No JVD Lungs: Clear to Auscultation Heart: Regular Rate Abdomen: Normal Bowel Sounds, Soft, No Tenderness, Other (obese) Extremities: Other (Chronic edema with wounds both shins RT >left) Skin: Other (Chronic wounds both legs RT > left) Neuro: Other (Weaknee BLES) Results Lab Data Laboratory Tests 12/08/17 17:21: Glucometer 114H 12/09/17 05:22: Glucometer 87 12/09/17 16:26: Glucometer 112H 12/10/17 04:31: Glucometer 96 12/10/17 16:42: Glucometer 152H 12/11/17 05:03: Glucometer 116H 12/11/17 05:30: White Blood Count 7.1, Red Blood Count 2.68L, Hemoglobin 7.8L, Hematocrit 25L, Mean Corpuscular Volume 93, Mean Corpuscular Hemoglobin 29, Mean Corpuscular Hemoglobin Concent 32, Red Cell Distribution Width 15.6H, Platelet Count 311, Mean Platelet Volume 8.1, Neutrophils (%) (Auto) 65, Lymphocytes (%) (Auto) 19, Monocytes (%) (Auto) 13H, Eosinophils (%) (Auto) 3, Basophils (%) (Auto) 0, Neutrophils # (Auto) 4.6, Lymphocytes # (Auto) 1.4, Monocytes # (Auto) 0.9, Eosinophils # (Auto) 0.2, Basophils # (Auto) 0.0, Sodium Level 135, Potassium Level 4.6, Chloride Level 108H, Carbon Dioxide Level 19L, Anion Gap 8, Blood Urea Nitrogen 22H, Creatinine 0.85, Estimat Glomerular Filtration Rate > 60, BUN /Creatinine Ratio 26, Glucose Level 94, Calcium Level 8.0L Assessment/Plan Assessment and Plan general debil secondary to Chronic wounds both legs DR Salgado addressing Hypotension with HX of HTN benicar held Chronic anemia to have Aranesp Injection today Acute exacerbation of asthma improved with RX DM controlledChronic edeam Both legs elevate Probable PVD To have vascular study today Chronic wounds both legs dr Salgado following DVT Prophylaxis on Lvoenox subcut Plan Continue PT/OT/Wound care Aranesp and vascular study as per above Team Conference later today See report for full functional update and POC and ELOS F/U with DR Salgado and PCP and Cardiology Co-Morbidities that are continuing to impact the rehab process: (include details ) JANNET GOTTI MD Dec 11, 2017 08:41
[2017-12-11] MEDS: OLMESARTAN 20 MG (BENICAR) TABLET PO SCH (08:42)
[2017-12-11] MEDS: ENOXAPARIN 40 MG/0.4 ML (LOVENOX) SYR SC SCH ×2 (08:43→21:27)
--- NOTE | 2017-12-11 08:45 | Progress Note-Hospitalist ---
Subjective HPI/CC On Admission Date Seen by Provider: Dec 11, 2017 Time Seen by Provider: 08:35 CC: Medical management during inpatient rehabilitation stay for debility HPI: This is a 72-year-old white female clinic patient of Dr. Roblero who presented to the inpatient rehabilitation facility when she requested help with lower extremity lymphedema and ulcers could no longer make it at home. Adeline at the cancer center arranged this. Dr. Salgado is managing her lower [place] the wounds with a and D ointment and Yonny wrappings. Ultrasound was completed yesterday and Dr. Salgado was pleased with the results. 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 Subjective/Events-last exam Patient voices no complaints this morning slept well last night. She is tolerating IV fluids denies lightheadedness or shortness of breath. Objective Exam Vital Signs Vital Signs Date Time Temp Pulse Resp B/P (MAP) Pulse Ox O2 Delivery O2 Flow Rate FiO2 12/11/17 05:07 91 Room Air 12/11/17 05:05 98.7 93 18 95/58 (70) Capillary Refill : Less Than 3 Seconds General Appearance: No Apparent Distress, Chronically ill, Obese Respiratory: Chest Non Tender, Lungs Clear, Normal Breath Sounds, No Accessory Muscle Use, No Respiratory Distress Cardiovascular: Regular Rate, Rhythm, No Edema, No Gallop, No JVD, Normal Peripheral Pulses, Systolic Murmur Extremity: Other (2+ pedal edema noted extremities are warm unable to appreciate pulses in both legs wrapped no drainage on bandage.) Neurologic/Psychiatric: Alert, Oriented x3 Results/Procedures Lab Laboratory Tests 12/11/17 05:30 Patient resulted labs reviewed. Assessment/Plan Assessment and Plan Assess & Plan/Chief Complaint 1. Multifactorial debility complicated by obesity myelodysplastic anemia for which there have been components of iron deficiency in the past OA of the knees and lower extremity ulcerations with known venous insufficiency. ABIs are quite low suggesting significant peripheral artery disease. Arterial Doppler studies somewhat poor quality don't look as bad although there are monophasic waveforms in the posterior tibial arteries dorsalis pedis flow appears to be relatively normal. The study is admittedly suboptimal and for this reason I discussed the case with Dr. Loera who has started IV fluids and is planning on CT angiography of I believe tomorrow although it could be later today. 2. Myelodysplastic anemia somewhat responsive to erythropoietin with past iron deficiency anemia as well per this patient's report last dose of IV iron was in March. As the patient has been having more ice craving will check iron studies. I suspect that her ferritin level may be falsely elevated due to chronic inflammation from her lower extremity ulcers. Iron deficiency anemia panel drawn this morning results pending await results. 3. Type II diabetes mellitus with weight loss is been under good control. Patient off pioglitazone due to edema and currently metformin is being held due to upcoming CT angiography of the lower extremities. Continue to monitor.. Complex medical management situation due to multiple medical comorbidities. Clinical Quality Measures DVT/VTE Risk/Contraindication: Risk Factor Score Per Nursin RFS Level Per Nursing on Admit: 4+=Very High JOHN ROBLERO MD Dec 11, 2017 08:45
--- NOTE | 2017-12-11 08:48 | Cardiology Progress Note ---
Subjective Date Seen by Provider: Dec 11, 2017 Time Seen by Provider: 08:40 Subjective/Events-last exam Patient is sitting up in bed. C/o pain and edema to BLE Review of Systems General: No Night Sweats; Fatigue, Malaise HEENT: No Visual Changes, No Dysphasia Pulmonary: No Dyspnea, No Cough Cardiovascular: Edema; No: Chest Pain, Palpitations, Paroxysmal Noc. Dyspnea Gastrointestinal: No: Nausea, Vomiting, Abdominal Pain Genitourinary: No Dysuria, No Frequency Musculoskeletal: No: neck pain, back pain Neurological: No: Weakness, Numbness, Change in speech, Confusion Objective-Cardiology Exam Last Set of Vital Signs Vital Signs 12/11/17 12/11/17 05:05 05:07 Temp 98.7 Pulse 93 Resp 18 B/P (MAP) 95/58 (70) Pulse Ox 91 O2 Delivery Room Air Capillary Refill : Less Than 3 Seconds I&O Intake and Output 12/11/17 00:00 Intake Total 1760 ml Balance 1760 ml Intake Oral 1760 ml # Voids 5 # Bowel Movements 3 General: Alert, Oriented X3, Cooperative, No Acute Distress HEENT: Atraumatic, PERRLA, EOMI, Mucous Memb Moist/[place] Neck: Supple, No JVD Lungs: Clear to Auscultation Heart: Regular Rate Abdomen: Normal Bowel Sounds, Soft, No Tenderness, Other (obese) Extremities: Other (Chronic edema with wounds both shins RT >left) Skin: Other (Chronic wounds both legs RT > left) Neuro: Other (Weaknee BLES) Results Lab Laboratory Tests 12/11/17 05:30 A/P-Cardiology Admission Diagnosis Foot ulcer Generalized weakness and debility Chronic venous insufficiency Diabetes mellitus Peripheral arterial disease Assessment/Plan Nonhealing foot ulcers, history of venous stasis ulcers. GEETA was abnormal, ultrasound of the arterial was nondiagnostic, planning to evaluate CT angiogram, Generalized weakness and loss of energy, receiving physical therapy. Improving slowly. Shortness of breath on exertion, receiving physical therapy. Chronic kidney disease, started on IV fluid and monitor renal function. Hypertension, hypotensive this morning. I will hold Benicar and continue to monitor. Hyperlipidemia, monitor lipids. Anemia, myelodysplastic, has been followed by Dr. Troncoso. Morbid obesity, BMI is 44, discussed weight loss and exercise. History of COPD, obstructive sleep apnea using C Pap. Clinical Quality Measures DVT/VTE Risk/Contraindication: Risk Factor Score Per Nursin RFS Level Per Nursing on Admit: 4+=Very High ALLEN BRADY Dec 11, 2017 08:48
--- NOTE | 2017-12-11 10:31 | Physical Therapy Daily Note ---
PT Daily Note-Current Subjective Pt. in bed, agrees to Rx, concerned b/c she will have a procedure today or tomorrow. Hoping it will be tomorrow. Pain Numeric Pain Scale: 7 Location: Left Location Body Site: Calf (bilateral calves) Pain Description: Burning Appearance coughing frequently, loose crackly, dyspneic as well but still attempts to talk alot. incontinent of urine, several wet pads in pants as well as wet shirt and underwear and bedding Mental Status Patient Orientation: Normal For Age Attachments: IV Transfers Functional [place] Measure 0=Not Assessed/NA 4=Minimal Assistance 1=Total Assistance 5=Supervision or Setup 2=Maximal Assistance 6=Modified [place] 3=Moderate Assistance 7=Complete IndependenceIRFPAI Quality Coding Scale 6 Independent with activity with or without an assistive device 5 Patient requires set up or clean up by helper. Patient completes activity by themselves 4 Supervision or touching assist (CGA). [place] provide cues , steadying assist 3 The helper provides less than half the effort to complete the activity 2 The helper provides more than half the effort to complete the activity 1 Dependent. The helper does all the effort to complete an activity 7 Patient refused to complete or attempt activity 9 The patient did not perform the activity before the current illness or injury 88 Not attempted due to Medical conditions or safety concerns Transfers (B, C, W/C) (FIM): 4 Scootin Rollin Supine to/from Sit: 4 Sit to/from Stand: 4 Bed to/from Chair: 4 Weight Bearing Right Lower Extremity: Right Full Weight Bearing Left Lower Extremity: Left Full Weight Bearing Gait Training Does the Patient Walk?: Yes Gait (FIM): 2 Distance (FIM): 9=388-53 ft (60-70 ft x 5) Gait Level of Assist: 4 Gait Persons Needed: 1 Gait Assistive Device: FWW very slow, labored, bent over walker, dyspneic Exercises Supine Ex: Ankle pumps, Quad Set, Rolling, Glut sets, Heel Slides, Short Arc Quads, Scooting, Hip abd/add Supine Reps: 15 Seated Therapy Exercises: Ankle pumps, Sit to stand, Long arc quads, Hip flexion Seated Reps: 15 Treatments in bathroom for toileting and change of pants and pads etc, handwashing etc, very slow and time consuming Assessment Current Status: Fair Progress coughing and SOB ...pt. requires several stops for resting, noted that O2 sats were 88% on room air and HR 150BPM after 65 ft gait, quickly recovered to 92% and HR down to 130BPM PT Short Term Goals Short Term Goals Time Frame: Dec 12, 2017 Transfers (B,C,W/C) (FIM): 4 Gait (FIM): 2 Gait Distance Comment: 100' Gait Level of Assist: 4 Gait Assistive Device: FWW Wheelchair Distance: 60',120' PT Prison Goals Prison Goals PT Air Support Operations Operator Goals Time Frame: Dec 26, 2017 Transfers (B,C,W/C) (FIM): 5 Sit to Lying (QC): 4 Lying-Sitting on Side/Bed(QC): 4 Sit to Stand (QC): 4 Rollin Roll Left to Right (QC): 4 Chair/Nkp-ue-Jyzav Xfer(QC): 4 Car Transfer (QC): 4 Does the Patient Walk: Yes Gait (FIM): 5 Distance: 150' Walk 10 feet (QC): 4 Walk 10ft-Uneven Surface(QC): 4 Walk 50ft with 2 Turns (QC): 4 Walk 150 ft (QC): 4 Gait Level of Assist: 5 Gait Assistive Device: FWW Stairs (FIM): 2 # of Steps: 4 1 Step (curb) (QC): 4 4 Steps (QC): 4 12 Steps (QC): 4 Stairs Level Of Assist: 4 PT Plan Treatment/Plan Treatment Plan: Continue Plan of Care Treatment Plan: Bed Mobility, Concurrent Therapy, Education, Functional Activity Yimi, Functional Strength, Group Therapy, Gait, Safety, Therapeutic Exercise, Transfers Treatment Duration: Dec 26, 2017 Frequency: Modified Program (IRF) Estimated Hrs Per Day: 1.5 hours per day Patient and/or Family Agrees t: Yes Safety Risks/Education Patient Education: Gait Training, Transfer Techniques, Correct Positioning, Disease Process, Safety Issues Teaching Recipient: Patient Teaching Methods: Demonstration, Discussion Response to Teaching: Verbalize Understanding, Return Demonstration, Reinforcement Needed Time/GCodes Time In: 900 Time Out: 1030 Total Billed Treatment Time: 90 Total Billed Treatment 1, FA40m,GT30m,ex20m G Codes Necessary: No WERNER SPENCE BUSINESS MAIL ENTRY CLERK Dec 11, 2017 10:31
--- NOTE | 2017-12-11 11:20 | Cardiology Progress Note ---
Subjective Date Seen by Provider: Dec 11, 2017 Time Seen by Provider: 11:19 Subjective/Events-last exam Patient is sitting in a chair, feeling better, denied any chest pain, had a long discussion about her condition. Off metformin for the past 24 hours, planning to do CT angiogram with runoff of the lower extremities tomorrow Review of Systems General: No Chills, No Night Sweats, No Fatigue, No Malaise, No Appetite, No Other HEENT: No Head Aches, No Visual Changes, No Eye Pain, No Ear Pain, No Dysphasia , No Sinus Congestion, No Post Nasal Drip, No Sore Throat, No Other Pulmonary: No Dyspnea, No Cough, No Pleuritic Chest Pain, No Other Cardiovascular: No: Chest Pain, Palpitations, Orthopnea, Paroxysmal Noc. Dyspnea, Edema, Lt Headedness, Other Objective-Cardiology Exam Last Set of Vital Signs Vital Signs 12/11/17 12/11/17 05:05 05:07 Temp 98.7 Pulse 93 Resp 18 B/P (MAP) 95/58 (70) Pulse Ox 91 O2 Delivery Room Air Capillary Refill : Less Than 3 Seconds I&O Intake and Output 12/11/17 00:00 Intake Total 1760 ml Balance 1760 ml Intake Oral 1760 ml # Voids 5 # Bowel Movements 3 General: Alert, Oriented X3, Cooperative, No Acute Distress HEENT: Atraumatic, PERRLA, EOMI, Mucous Memb Moist/[place] Neck: Supple, No JVD Lungs: Clear to Auscultation Heart: Regular Rate, Normal S1, Normal S2 Abdomen: Normal Bowel Sounds, Soft, No Tenderness, Other (obese) Extremities: Other (Chronic edema with wounds both shins RT >left) Skin: Other (Chronic wounds both legs RT > left) Neuro: Normal Speech, Sensation Intact, Other (Weaknee BLES) Results Lab Laboratory Tests 12/11/17 05:30 A/P-Cardiology Admission Diagnosis Foot ulcer Generalized weakness and debility Chronic venous insufficiency Diabetes mellitus Peripheral arterial disease Assessment/Plan Nonhealing foot ulcers, history of venous stasis ulcers. GEETA was abnormal, ultrasound of the arterial was nondiagnostic, planning to evaluate CT angiogram tomorrow, need to be off metformin for at least 48 hours prior to doing the test and she will need to be off metformin for 48 hours after receiving the contrast Generalized weakness and loss of energy, receiving physical therapy. Improving slowly. Shortness of breath on exertion, receiving physical therapy. Chronic kidney disease, started on IV fluid and monitor renal function. Hypertension, hypotensive this morning. I will hold Benicar and continue to monitor. Hyperlipidemia, monitor lipids. Anemia, myelodysplastic, has been followed by Dr. Troncoso. Morbid obesity, BMI is 44, discussed weight loss and exercise. History of COPD, obstructive sleep apnea using C Pap. Clinical Quality Measures DVT/VTE Risk/Contraindication: Risk Factor Score Per Nursin RFS Level Per Nursing on Admit: 4+=Very High ARIANA BARROS MD Dec 11, 2017 11:20
--- NOTE | 2017-12-11 14:02 | Occupational Ther Daily Note ---
OT Current Status-Daily Note Subjective Pt seen in room, up in recliner, eating breakfast. No pain mentioned. Appearance Alert, cooperative Mental Status/Objective Functional [place] Measure 0=Not Assessed/NA 4=Minimal Assistance 1=Total Assistance 5=Supervision or Setup 2=Maximal Assistance 6=Modified [place] 3=Moderate Assistance 7=Complete [place] Attachments: IV ADL-Treatment Pt was anticipating CT procedure today on LEs but it has been postponed until tomorrow. Pt education/discussion/problem solving on discharge needs and questions on would management. She is able to take dressings off lower legs but becomes very winded with prolonged bending over. May need home health assistance with dressings or even retirement placement. Also discussed progress toward goals and improvements in function that she has made. Pt got up from recliner with min assist, getting stuck at midpoint of sit to stand. Walked with SBA, FWW to w/c and able to get into w/c without assist but with skilled cues for hand placement. OT assisting with IV pole. Pt positioned at sink and able to wash face and hands, brush teeth and hair with setup, w/c level. Pt education locking brakes on w/c, self propulsion with arms and legs. To strengthen arms but also for simple mobility during ADLs. Pt propelled to sink in kitchen area, with pt educ using sink on bathroom or kitchen for standing during ADLs. Pt propelled to shower room, for demonstration/education on use of transfer tub bench in tub (may be able to use this at home). Also demonstrated walk-in tub. Pt would like her son to see transfer tub bench. Pt assisted with propelling w/c back to room and needed min assist ot get up out of w/c. Once up, she walked SBA, FWW to bed and sat EOB, all needs met. OT managing IV pole and tubing. Functional [place] Measure 0=Not Assessed/NA 4=Minimal Assistance 1=Total Assistance 5=Supervision or Setup 2=Maximal Assistance 6=Modified [place] 3=Moderate Assistance 7=Complete IndependenceIRFPAI Quality Coding Scale 6 Independent with activity with or without an assistive device 5 Patient requires set up or clean up by helper. Patient completes activity by themselves 4 Supervision or touching assist (CGA). [place] provide cues , steadying assist 3 The helper provides less than half the effort to complete the activity 2 The helper provides more than half the effort to complete the activity 1 Dependent. The helper does all the effort to complete an activity 7 Patient refused to complete or attempt activity 9 The patient did not perform the activity before the current illness or injury 88 Not attempted due to Medical conditions or safety concerns Grooming (FIM): 5 Oral Hygiene (QC): 5 Transfers (B, C, W/C) (FIM): 4 Education OT Patient Education: Disease process, Modified ADL techniques, Progress toward Goal/Update tx plan, Purpose of tx/functional activities, Reviewed precautions, Safety issues, Transfer techniques, Use of adapted equipment Teaching Recipient: Patient Teaching Methods: Demonstration, Discussion Response to Teaching: Verbalize Understanding, Return Demonstration OT Short Term Goals Short Term Goals Time Frame: Dec 12, 2017 Toileting(FIM): 5 Transfers (B,C,W/C) (FIM): 4 Toilet/Commode Transfer(FIM): 5 Additional Short Term Goals: 1-Demonstrate ADL Tasks, 2-Verbalize Understanding , 3-ImproveStrength/Yimi 1=Demonstrate adherence to instructed precautions during ADL tasks. 2=Patient will verbalize/demonstrate understanding of assistive devices/ modifications for ADL. 3=Patient will improve strength/tolerance for activity to enable patient to perform ADL's. OT Shelter Goals Shelter Goals Time Frame: Dec 26, 2017 Eating (FIM): 7 Eating (QC): 6 Groomin Oral Hygiene (QC): 6 Bathing(FIM): 6 Shower/Bathe Self (QC): 6 Upper Body Dressing(FIM): 6 Upper Body Dressing (QC): 6 Lower Body Dressing(FIM): 6 Lower Body Dressing (QC): 6 On/Off Footwear (QC): 6 Toileting(FIM): 6 Toileting Hygiene (QC): 6 Toilet/Commode Transfer(FIM): 6 Toilet/Commode Transfer (QC): 6 Shower Transfer(FIM): 6 Additional Goals: 1-Demonstrate ADL Tasks, 2-Verbalize Understanding, 3- ImproveStrength/Yimi 1=Demonstrate adherence to instructed precautions during ADL tasks. 2=Patient will verbalize/demonstrate understanding of assistive devices/ modifications for ADL. 3=Patient will improve strength/tolerance for activity to enable patient to perform ADL's. OT Education/Plan Problem List/Assessment Pt would benefit from skilled OT to increase her independence in basic self care to allow her to safely return to her home Discharge Recommendations Plan/Recommendations: Continue POC Treatment Plan/Plan of Care Patient would benefit from OT for education, treatment and training to promote independence in ADL's, mobility, safety and/or upper extremity function for ADL' s. Plan of Care: ADL Retraining, Functional Mobility, Group Exercise/Act as Ind ( education, exercise, functional activity, activity tolerance, functional mobility, socialization), UE Funct Exercise/Act, UE Neuromus Re-Ed/Coord Treatment Duration: Dec 26, 2017 Frequency: At least 5 of 7 days/Wk (IRF) Estimated Hrs Per Day: 1.5 hours per day Agreement: Yes Rehab Potential: Good Time/GCodes Start Time: 10:30 Stop Time: 12:00 Total Time Billed (hr/min): 90 Billed Treatment Time visit, 90 minutes ASHLI VARGAS OT Dec 11, 2017 14:02
[2017-12-11] MEDS: ACETAMINOPHEN 500 MG TAB (TYLENOL) PO PRN (14:48)
[2017-12-11] MEDS: DARBEPOETIN 40 MCG/ML (ARANESP) 1 ML VIAL SC SCH (16:05)
[2017-12-11 18:18] VITALS: BP 80/44
[2017-12-11 19:40] VITALS: BP 108/63
[2017-12-11] MEDS: MONTELUKAST 10 MG (SINGULAIR) TAB PO SCH (21:26)
[2017-12-11] MEDS: ATORVASTATIN 40 MG (LIPITOR) TABLET PO SCH (21:26)
[2017-12-12] MEDS: ACETAMINOPHEN 500 MG TAB (TYLENOL) PO PRN ×2 (02:24→13:58)
[2017-12-12 05:34] VITALS: BP 102/50
[2017-12-12] MEDS: CALCIUM CARBONATE 600 MG (CALCARB) TAB PO SCH (05:36)
[2017-12-12] MEDS: ASCORBIC ACID (VIT C) 500 MG TABLET PO SCH (05:37)
[2017-12-12] MEDS: FOLIC ACID 1 MG TAB PO SCH (05:37)
[2017-12-12] MEDS: VITAMIN D3 1,000 UNITS (CHOLECALCIFEROL) TABLET PO SCH (05:37)
[2017-12-12] MEDS: CYANOCOBALAMIN 1,000 MCG (VITAMIN B-12) TABLET PO SCH (05:37)
[2017-12-12] MEDS: RT-ALBUTEROL SULF 2.5 MG/3 ML PRE-MIX VIAL INH SCH ×2 (06:46→19:41)
[2017-12-12] MEDS: RT-ADVAIR HFA 115/21 MCG PER PUFF IH SCH ×2 (06:47→19:41)
--- NOTE | 2017-12-12 07:24 | PM & R (SOAP) Progress Note ---
Subjective This was a face to face visit with the patient. Date Seen by Provider: Dec 12, 2017 Time Seen by Provider: 07:00 Subjective/Events-last exam Patient was seen in her room this AM Patient Min assist for transfers Having Vascular study today to check Lower limb circulation.Appreciate Cardiology note and medardo Date Identified: Dec 12, 2017 Time Identified: 07:00 Medication Intervention: had IV hydration prior to vascular study Darbopoetin provided for chronic anemia Review of Systems Cardiovascular: Edema Musculoskeletal: leg pain Neurological: Weakness Objective Physician Exam Last Set of Vital Signs Vital Signs Date Time Temp Pulse Resp B/P (MAP) Pulse Ox O2 Delivery O2 Flow Rate FiO2 12/12/17 06:47 91 Room Air 12/12/17 06:30 99.5 12/12/17 05:34 108 18 102/50 (67) Capillary Refill : Less Than 3 Seconds I&O Intake and Output 12/12/17 00:00 Intake Total 3890 ml Balance 3890 ml Intake Oral 1340 ml IV Total 2550 ml # Voids 3 General: Alert, Oriented X3, Cooperative, No Acute Distress HEENT: Atraumatic, PERRLA, EOMI, Mucous Memb Moist/[place] Neck: Supple, No JVD Lungs: Clear to Auscultation Heart: Regular Rate, Normal S1, Normal S2 Abdomen: Normal Bowel Sounds, Soft, No Tenderness, Other (obese) Extremities: Other (Chronic edema with wounds both shins RT >left) Skin: Other (Chronic wounds both legs RT > left) Neuro: Normal Speech, Sensation Intact, Other (Weaknee BLES) Results Lab Data Laboratory Tests 12/09/17 16:26: Glucometer 112H 12/10/17 04:31: Glucometer 96 12/10/17 16:42: Glucometer 152H 12/11/17 05:03: Glucometer 116H 12/11/17 05:30: White Blood Count 7.1, Red Blood Count 2.68L, Hemoglobin 7.8L, Hematocrit 25L, Mean Corpuscular Volume 93, Mean Corpuscular Hemoglobin 29, Mean Corpuscular Hemoglobin Concent 32, Red Cell Distribution Width 15.6H, Platelet Count 311, Mean Platelet Volume 8.1, Neutrophils (%) (Auto) 65, Lymphocytes (%) (Auto) 19, Monocytes (%) (Auto) 13H, Eosinophils (%) (Auto) 3, Basophils (%) (Auto) 0, Neutrophils # (Auto) 4.6, Lymphocytes # (Auto) 1.4, Monocytes # (Auto) 0.9, Eosinophils # (Auto) 0.2, Basophils # (Auto) 0.0, Sodium Level 135, Potassium Level 4.6, Chloride Level 108H, Carbon Dioxide Level 19L, Anion Gap 8, Blood Urea Nitrogen 22H, Creatinine 0.85, Estimat Glomerular Filtration Rate > 60, BUN /Creatinine Ratio 26, Glucose Level 94, Calcium Level 8.0L, Iron Level 17L, Total Iron Binding Capacity 157L, Unsaturated Iron Binding Capacity 140, Transferrin % Saturation 11L, Ferritin 202.1H 12/11/17 15:50: Glucometer 123H 12/12/17 05:25: Glucometer 117H Assessment/Plan Assessment and Plan General debil secondary to Chronic wounds both legs DR Salgado following PVD to have further eval today as per above Hypotension with HX of HTN richa held Chronic anemia had Injection therapy yesterday with darbopoetin as per [facility] protocol Acute exacerbation of asthma treated DM controlled DVT prophylaxis on Lovenox subcut Plan Continue PT/OT/Wound care Vascular study as per above F/U with PCP and cardiology and wound care Team Conference held yesterday see report for full functional update and POC Review progress at Team Conference next week Co-Morbidities that are continuing to impact the rehab process: (include details ) JANNET GOTTI MD Dec 12, 2017 07:24
--- NOTE | 2017-12-12 08:22 | Cardiology Progress Note ---
Subjective Date Seen by Provider: Dec 12, 2017 Time Seen by Provider: 08:20 Subjective/Events-last exam Patient is in bed, reports nervous about having CTA done this morning. Has had low grade fever over night. C/o nonproductive cough. Denies any CP or dyspnea. Objective-Cardiology Exam Last Set of Vital Signs Vital Signs 12/12/17 12/12/17 12/12/17 05:34 06:30 06:47 Temp 99.5 Pulse 108 Resp 18 B/P (MAP) 102/50 (67) Pulse Ox 91 O2 Delivery Room Air Capillary Refill : Less Than 3 Seconds I&O Intake and Output 12/12/17 00:00 Intake Total 3890 ml Balance 3890 ml Intake Oral 1340 ml IV Total 2550 ml # Voids 3 General: Alert, Oriented X3, Cooperative, No Acute Distress HEENT: Atraumatic, PERRLA, EOMI, Mucous Memb Moist/[place] Neck: Supple, No JVD Lungs: Clear to Auscultation Heart: Regular Rate, Normal S1, Normal S2 Abdomen: Normal Bowel Sounds, Soft, No Tenderness, Other (obese) Extremities: Other (Chronic edema with wounds both shins RT >left) Skin: Other (Chronic wounds both legs RT > left) Neuro: Normal Speech, Sensation Intact, Other (Weaknee BLES) A/P-Cardiology Admission Diagnosis Foot ulcer Generalized weakness and debility Chronic venous insufficiency Diabetes mellitus Peripheral arterial disease Assessment/Plan Nonhealing foot ulcers, history of venous stasis ulcers. GEETA was abnormal, ultrasound of the arterial was nondiagnostic, planning to evaluate CT angiogram this morning, need to be off metformin for at least 48 hours prior to doing the test and she will need to be off metformin for 48 hours after receiving the contrast Generalized weakness and loss of energy, receiving physical therapy. Improving slowly. Shortness of breath on exertion, receiving physical therapy. Chronic kidney disease, started on IV fluid and monitor renal function. Hypertension, continue to hold Benicar and continue to monitor. Hyperlipidemia, monitor lipids. Anemia, myelodysplastic, has been followed by Dr. Troncoso. Morbid obesity, BMI is 44, discussed weight loss and exercise. History of COPD, obstructive sleep apnea using C Pap. Clinical Quality Measures DVT/VTE Risk/Contraindication: Risk Factor Score Per Nursin RFS Level Per Nursing on Admit: 4+=Very High ALLEN BRADY Dec 12, 2017 08:21
[2017-12-12] MEDS: NS IV 1000 ML 1,000 ML IV SCH ×3 (08:26→21:34)
[2017-12-12] MEDS: ENOXAPARIN 40 MG/0.4 ML (LOVENOX) SYR SC SCH ×2 (08:28→21:15)
--- NOTE | 2017-12-12 08:48 | Progress Note-Hospitalist ---
Subjective HPI/CC On Admission Date Seen by Provider: Dec 12, 2017 Time Seen by Provider: 08:30 CC: Medical management during inpatient rehabilitation stay for debility HPI: This is a 72-year-old white female clinic patient of Dr. Roblero who presented to the inpatient rehabilitation facility when she requested help with lower extremity lymphedema and ulcers could no longer make it at home. Adeline at the cancer center arranged this. Dr. Salgado is managing her lower [place] the wounds with a and D ointment and Yonny wrappings. Ultrasound was completed yesterday and Dr. Salgdao was pleased with the results. 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 Subjective/Events-last exam Patient voices no complaints. She is scheduled for CT angiography of the lower extremities later on today to evaluate low bilateral ABIs. Physical therapy progress has been slow likely aggravated by anemia. There is been no evidence for bleeding patient denies melena or bright red blood per rectum with no GI symptoms. Objective Exam Vital Signs Vital Signs Date Time Temp Pulse Resp B/P (MAP) Pulse Ox O2 Delivery O2 Flow Rate FiO2 12/12/17 06:47 91 Room Air 12/12/17 06:30 99.5 12/12/17 05:34 108 18 102/50 (67) Capillary Refill : Less Than 3 Seconds General Appearance: No Apparent Distress, Chronically ill, Obese Respiratory: Chest Non Tender, Lungs Clear, Normal Breath Sounds, No Accessory Muscle Use, No Respiratory Distress Cardiovascular: Regular Rate, Rhythm, No Edema, No Gallop, No JVD, Normal Peripheral Pulses, Other (Soft 1 to 2/6 systolic ejection murmur heard over the aortic Flow track without evidence for pulsus parvus or tardus.) Gastrointestinal: Normal Bowel Sounds, No Organomegaly, No Pulsatile Mass, Non Tender, Soft Extremity: Other (Stable pedal edema feet warm no pulsus appreciated.) Results/Procedures Lab Patient resulted labs reviewed. Assessment/Plan Assessment and Plan Assess & Plan/Chief Complaint 1. Multifactorial debility complicated by obesity myelodysplastic anemia for which there have been components of iron deficiency in the past OA of the knees and lower extremity ulcerations with known venous insufficiency. ABIs are quite low suggesting significant peripheral artery disease. Arterial Doppler studies somewhat poor quality don't look as bad although there are monophasic waveforms in the posterior tibial arteries dorsalis pedis flow appears to be relatively normal. The study is admittedly suboptimal and for this reason I discussed the case with Dr. Loera who has started IV fluids and is planning on CT angiography later today. 2. Myelodysplastic anemia somewhat responsive to erythropoietin with past iron deficiency anemia as well per this patient's report last dose of IV iron was in March. Iron studies are compatible significant iron deficiency anemia with low transference saturation and low iron level. Ferritin level likely mildly elevated only do to its acute phase reactant properties from inflammation for her chronic venous insufficiency ulcers. We'll give 1 g of iron sucrose today IV after CT scan. 3. Type II diabetes mellitus with weight loss is been under good control. Patient off pioglitazone due to edema and currently metformin is being held due to upcoming CT angiography of the lower extremities. Continue to monitor.. Complex medical management situation due to multiple medical comorbidities. Clinical Quality Measures DVT/VTE Risk/Contraindication: Risk Factor Score Per Nursin RFS Level Per Nursing on Admit: 4+=Very High JOHN ROBLERO MD Dec 12, 2017 08:48
[2017-12-12] MEDS ORDERED: IRON SUCROSE 200 MG/10 ML (VENOFER) VIAL IV NR (08:54)
--- NOTE | 2017-12-12 09:12 | Physical Therapy Daily Note ---
PT Daily Note-Current Subjective Pt laying Supine in bed upon arrival. Pt agrees to PT but reports she is suppose to go for CT scan this morning. MARBLE HELPER reassures pt that we will work in pt's room until they come to pick her up for the CT. Pain Numeric Pain Scale: 6 Location: Right, Left Location Body Site: Knee Pain Description: Ache, Pricking, Tightness Comment: Pt reports pain & tightness from knees down BLE. Mental Status Patient Orientation: Person, Place, Time, Situation Attachments: IV Transfers Functional [place] Measure 0=Not Assessed/NA 4=Minimal Assistance 1=Total Assistance 5=Supervision or Setup 2=Maximal Assistance 6=Modified [place] 3=Moderate Assistance 7=Complete IndependenceIRFPAI Quality Coding Scale 6 Independent with activity with or without an assistive device 5 Patient requires set up or clean up by helper. Patient completes activity by themselves 4 Supervision or touching assist (CGA). [place] provide cues , steadying assist 3 The helper provides less than half the effort to complete the activity 2 The helper provides more than half the effort to complete the activity 1 Dependent. The helper does all the effort to complete an activity 7 Patient refused to complete or attempt activity 9 The patient did not perform the activity before the current illness or injury 88 Not attempted due to Medical conditions or safety concerns Scootin Weight Bearing Right Lower Extremity: Right Full Weight Bearing Left Lower Extremity: Left Full Weight Bearing Exercises Supine Ex: Ankle pumps, Quad Set, Glut sets, Straight leg raise, Hip abd/add Supine Reps: 20 (2 sets, avoided Heel slides due to pt's discomfort) Treatments Pt is given meds by Nurse at beginning of tx. Dr Whittington's ASSEMBLER BODY checks on pt, then Dr Roblero arrives to check pt, followed by Dr Whittington visits with pt about CT scan. Dr Roblero advises pt is Iron Deficient which could explain fatigue & sluggishness during tx lately. Pt is also having increased swelling and tightness in BLE. Pt completes Supine Ex in bed with a couple of rest breaks. Pt resting at end of tx. with all needs met. Assessment Current Status: Fair Progress Pt is limited by fatigue & tightness at this time. 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 Farm Worker Goals Time Frame: Dec 26, 2017 Transfers (B,C,W/C) (FIM): 5 Sit to Lying (QC): 4 Lying-Sitting on Side/Bed(QC): 4 Sit to Stand (QC): 4 Rollin Roll Left to Right (QC): 4 Chair/Zmp-rh-Hsonw Xfer(QC): 4 Car Transfer (QC): 4 Does the Patient Walk: Yes Gait (FIM): 5 Distance: 150' Walk 10 feet (QC): 4 Walk 10ft-Uneven Surface(QC): 4 Walk 50ft with 2 Turns (QC): 4 Walk 150 ft (QC): 4 Gait Level of Assist: 5 Gait Assistive Device: FWW Stairs (FIM): 2 # of Steps: 4 1 Step (curb) (QC): 4 4 Steps (QC): 4 12 Steps (QC): 4 Stairs Level Of Assist: 4 PT Plan Problem List Problem List: Activity Tolerance, Functional Strength, Safety, Balance, Gait, Transfer, Bed Mobility Treatment/Plan Treatment Plan: Continue Plan of Care Treatment Plan: Bed Mobility, Concurrent Therapy, Education, Functional Activity Yimi, Functional Strength, Group Therapy, Gait, Safety, Therapeutic Exercise, Transfers Treatment Duration: Dec 26, 2017 Frequency: Modified Program (IRF) Estimated Hrs Per Day: 1.5 hours per day Patient and/or Family Agrees t: Yes Safety Risks/Education Patient Education: Transfer Techniques, Correct Positioning, Disease Process, Safety Issues Teaching Recipient: Patient Teaching Methods: Discussion Response to Teaching: Verbalize Understanding Time/GCodes Time In: 800 Time Out: 900 Total Billed Treatment Time: 60 Total Billed Treatment 1, FA x2 (30m) & EX x2 (30m) G Codes Necessary: RENNY Small PTA Dec 12, 2017 09:11
[2017-12-12 09:36] VITALS: BP 117/66
[2017-12-12] MEDS ORDERED: IOHEXOL 350 MG/ML 150 ML (OMNIPAQUE 350) VIAL IV ONE (09:45)
[2017-12-12] MEDS ORDERED: NS 250 ML (IVPB) BAG IV ONE (09:45)
--- NOTE | 2017-12-12 10:34 | Occupational Ther Daily Note ---
OT Current Status-Daily Note Subjective Pt seen in room, up in bed, agreeable to OT. Waiting to go to CT for procedure. No pain mentioned. Said she is discouraged because her OT sat was 89% Appearance Alert, cooperative Mental Status/Objective Functional [place] Measure 0=Not Assessed/NA 4=Minimal Assistance 1=Total Assistance 5=Supervision or Setup 2=Maximal Assistance 6=Modified [place] 3=Moderate Assistance 7=Complete [place] ADL-Treatment Functional [place] Measure 0=Not Assessed/NA 4=Minimal Assistance 1=Total Assistance 5=Supervision or Setup 2=Maximal Assistance 6=Modified [place] 3=Moderate Assistance 7=Complete IndependenceIRFPAI Quality Coding Scale 6 Independent with activity with or without an assistive device 5 Patient requires set up or clean up by helper. Patient completes activity by themselves 4 Supervision or touching assist (CGA). [place] provide cues , steadying assist 3 The helper provides less than half the effort to complete the activity 2 The helper provides more than half the effort to complete the activity 1 Dependent. The helper does all the effort to complete an activity 7 Patient refused to complete or attempt activity 9 The patient did not perform the activity before the current illness or injury 88 Not attempted due to Medical conditions or safety concerns Other Treatment Attempted to do AROM with L UE but IV is in elbow and kept occluding with any UE movements. Pt did 15 reps R UE AROM with gravity as resistance, working shoulder, elbow, forearm, wrist and fingers. Also did 15 reps several different R UE ex with yellow Theraband, for shoulder and elbow. Tx was ended when staff arrived to take pt for procedure. Discussed best transfers with Radiology staff and decision made to take her in bed instead of w/c, due to wounds on legs. Education OT Patient Education: Exercise program, Progress toward Goal/Update tx plan, Purpose of tx/functional activities Teaching Recipient: Patient Teaching Methods: Demonstration, Discussion Response to Teaching: Verbalize Understanding, Return Demonstration OT Short Term Goals Short Term Goals Time Frame: Dec 12, 2017 Toileting(FIM): 5 Transfers (B,C,W/C) (FIM): 4 Toilet/Commode Transfer(FIM): 5 Additional Short Term Goals: 1-Demonstrate ADL Tasks, 2-Verbalize Understanding , 3-ImproveStrength/Yimi 1=Demonstrate adherence to instructed precautions during ADL tasks. 2=Patient will verbalize/demonstrate understanding of assistive devices/ modifications for ADL. 3=Patient will improve strength/tolerance for activity to enable patient to perform ADL's. OT [facility] Goals [employer]scre[place] Worker Goals Time Frame: Dec 26, 2017 Eating (FIM): 7 Eating (QC): 6 Groomin Oral Hygiene (QC): 6 Bathing(FIM): 6 Shower/Bathe Self (QC): 6 Upper Body Dressing(FIM): 6 Upper Body Dressing (QC): 6 Lower Body Dressing(FIM): 6 Lower Body Dressing (QC): 6 On/Off Footwear (QC): 6 Toileting(FIM): 6 Toileting Hygiene (QC): 6 Toilet/Commode Transfer(FIM): 6 Toilet/Commode Transfer (QC): 6 Shower Transfer(FIM): 6 Additional Goals: 1-Demonstrate ADL Tasks, 2-Verbalize Understanding, 3- ImproveStrength/Yimi 1=Demonstrate adherence to instructed precautions during ADL tasks. 2=Patient will verbalize/demonstrate understanding of assistive devices/ modifications for ADL. 3=Patient will improve strength/tolerance for activity to enable patient to perform ADL's. OT Education/Plan Problem List/Assessment Pt would benefit from skilled OT to increase her independence in basic self care to allow her to safely return to her home Discharge Recommendations Plan/Recommendations: Continue POC Treatment Plan/Plan of Care Patient would benefit from OT for education, treatment and training to promote independence in ADL's, mobility, safety and/or upper extremity function for ADL' s. Plan of Care: ADL Retraining, Functional Mobility, Group Exercise/Act as Ind ( education, exercise, functional activity, activity tolerance, functional mobility, socialization), UE Funct Exercise/Act, UE Neuromus Re-Ed/Coord Treatment Duration: Dec 26, 2017 Frequency: At least 5 of 7 days/Wk (IRF) Estimated Hrs Per Day: 1.5 hours per day Agreement: Yes Rehab Potential: Good Time/GCodes Start Time: 09:15 Stop Time: 09:45 Total Time Billed (hr/min): 30 Billed Treatment Time visit, 30 minutes exercise ASHLI MEZA OT Dec 12, 2017 10:34
--- NOTE | 2017-12-12 14:08 | Diagnostic Imaging Report ---
EXAMINATION: CTA of the aorta with bilateral runoffs. TECHNIQUE: Contiguous axial sections were taken through the abdomen, pelvis, and lower extremities following administration of intravenous contrast. Reportedly, due to a technical malfunction, the lower legs were not included on the initial scan. The patient was subsequently reinjected and another series of images was obtained from the abdomen to the feet. Coronal reconstructed images were also performed. FINDINGS: There are no prior CTA examinations available for comparison. The bilateral lower extremity arterial Doppler exam of 12/09/2017 failed to show any sign of a focal stenosis but there were monophasic waveforms in the left posterior tibial and right posterior tibial artery. There was normal blood flow in the dorsalis pedis arteries. This exam is of limited diagnostic value. There is no sign of an aneurysm of the aorta and there is no hemodynamically significant stenosis of the major branches of the aorta. There is fairly good arterial blood flow in the iliac systems, the common femoral, and superficial femoral and popliteal arteries. The trifurcation arteries were not well visualized, however. There does appear to be a single vessel (posterior tibial artery runoff to each ankle joint). There is no acute abnormality of the visualized abdomen or pelvis. There is a 2.4 cm laminated gallstone within the gallbladder but there is no sign of acute cholecystitis. There does appear to be a small 9 mm area of low density in the right lobe of the liver. Most likely, this is a cyst. The spleen, pancreas, kidneys, and inferior vena cava show no sign of an acute abnormality. There is a 5 cm parapelvic cyst associated with the right kidney. There is a 2.7 cm low-density nodule associated with the left adrenal gland. This has Hounsfield units in the range of 30. There is a similar-appearing but smaller 1.6 cm nodule associated with the right adrenal gland. I suspect that the adrenal nodules are benign. If previous studies are available, they would be helpful for comparison. If there are no prior exams, then MRI would be recommended to better characterize this finding. If the MRI exam is not performed, then a short-term (three-month) followup CT abdomen exam should be obtained. The uterus and urinary bladder are grossly unremarkable. There is no pelvic mass or free fluid collection evident. The appendix was not particularly well visualized but there are no indirect signs of acute appendicitis. The bone windows show no sign of a fracture or of a destructive lesion. The lung bases are clear. IMPRESSION: 1. This exam is less than optimal as the aorta and its branches are not optimally opacified. There is no hemodynamically significant stenosis identified but the trifurcation arteries were not well imaged. There appears to be only a single vessel (posterior tibial artery runoff to each lower extremity). 2. There is no acute abnormality of the abdomen or pelvis. 3. There is cholelithiasis without evidence for acute cholecystitis. 4. The low-density nodules associated with the adrenal glands are most likely a benign. Recommendations, as above. Dictated by: Dictated on workstation # [id number]
--- NOTE | 2017-12-12 14:17 | Physical Therapy Daily Note ---
PT Daily Note-Current Subjective Pt laying Supine in bed upon arrival. Pt was finishing lunch when REPAIRER EVAPORATOR arrived. Pt agrees to PT but reports fatigue. Pain Numeric Pain Scale: 6 Location: Right, Left Location Body Site: Knee Pain Description: Ache, Pricking, Tightness Mental Status Patient Orientation: Person, Place, Time, Situation Attachments: IV Transfers Functional [place] Measure 0=Not Assessed/NA 4=Minimal Assistance 1=Total Assistance 5=Supervision or Setup 2=Maximal Assistance 6=Modified [place] 3=Moderate Assistance 7=Complete IndependenceIRFPAI Quality Coding Scale 6 Independent with activity with or without an assistive device 5 Patient requires set up or clean up by helper. Patient completes activity by themselves 4 Supervision or touching assist (CGA). [place] provide cues , steadying assist 3 The helper provides less than half the effort to complete the activity 2 The helper provides more than half the effort to complete the activity 1 Dependent. The helper does all the effort to complete an activity 7 Patient refused to complete or attempt activity 9 The patient did not perform the activity before the current illness or injury 88 Not attempted due to Medical conditions or safety concerns Weight Bearing Right Lower Extremity: Right Full Weight Bearing Left Lower Extremity: Left Full Weight Bearing Exercises Supine Ex: Ankle pumps, Quad Set, Glut sets, Straight leg raise Supine Reps: 20 Treatments Pt completes Supine Ex in bed with a few rest breaks. Pt resting at end of tx with all needs met. Assessment Current Status: Good Progress Pt reports fatigue during tx due to CT this morning. PT Short Term Goals Short Term Goals Time Frame: Dec 12, 2017 Transfers (B,C,W/C) (FIM): 4 Gait (FIM): 2 Gait Distance Comment: 100' Gait Level of Assist: 4 Gait Assistive Device: FWW Wheelchair Distance: 60',120' PT Fine Arts Chair Goals Fine Arts Chair Goals PT Chcf Goals Time Frame: Dec 26, 2017 Transfers (B,C,W/C) (FIM): 5 Sit to Lying (QC): 4 Lying-Sitting on Side/Bed(QC): 4 Sit to Stand (QC): 4 Rollin Roll Left to Right (QC): 4 Chair/[id number] Xfer(QC): 4 Car Transfer (QC): 4 Does the Patient Walk: Yes Gait (FIM): 5 Distance: 150' Walk 10 feet (QC): 4 Walk 10ft-Uneven Surface(QC): 4 Walk 50ft with 2 Turns (QC): 4 Walk 150 ft (QC): 4 Gait Level of Assist: 5 Gait Assistive Device: FWW Stairs (FIM): 2 # of Steps: 4 1 Step (curb) (QC): 4 4 Steps (QC): 4 12 Steps (QC): 4 Stairs Level Of Assist: 4 PT Plan Problem List Problem List: Activity Tolerance, Functional Strength, Safety, Balance, Gait, Transfer, Bed Mobility Treatment/Plan Treatment Plan: Continue Plan of Care Treatment Plan: Bed Mobility, Concurrent Therapy, Education, Functional Activity Yimi, Functional Strength, Group Therapy, Gait, Safety, Therapeutic Exercise, Transfers Treatment Duration: Dec 26, 2017 Frequency: Modified Program (IRF) Estimated Hrs Per Day: 1.5 hours per day Patient and/or Family Agrees t: Yes Safety Risks/Education Patient Education: Transfer Techniques, Correct Positioning, Disease Process Teaching Recipient: Patient Teaching Methods: Discussion Response to Teaching: Verbalize Understanding Time/GCodes Time In: 1335 Time Out: 1405 Total Billed Treatment Time: 30 Total Billed Treatment 1, Ex x2 (30m) G Codes Necessary: RENNY Small REPAIRER EVAPORATOR Dec 12, 2017 14:17
--- NOTE | 2017-12-12 15:23 | Occupational Ther Daily Note ---
OT Current Status-Daily Note Subjective Pt seen in room, up in bed, finishing PT. Agreeable to OT. Reported no pain and feeling OK, just warm, from procedure. Appearance Alert, cooperative Mental Status/Objective Functional [place] Measure 0=Not Assessed/NA 4=Minimal Assistance 1=Total Assistance 5=Supervision or Setup 2=Maximal Assistance 6=Modified [place] 3=Moderate Assistance 7=Complete [place] ADL-Treatment She was able to move both legs off the edge of the mattress and push up to sit EOM, moving very slowly, SBA. Able to slip shoes on herself. Sit to stand with CGA and walked SBA, FWW to bathroom. Managed clothing and sat down on BSC over toilet with SBA, FWW, controlling descent. Pt requested to sit on toilet for awhile due to amount of IV meds she is getting. New IV site in R arm. OT managed IV pole during transfer. pt left up on BSC, call light present, nursing notified. Functional [place] Measure 0=Not Assessed/NA 4=Minimal Assistance 1=Total Assistance 5=Supervision or Setup 2=Maximal Assistance 6=Modified [place] 3=Moderate Assistance 7=Complete IndependenceIRFPAI Quality Coding Scale 6 Independent with activity with or without an assistive device 5 Patient requires set up or clean up by helper. Patient completes activity by themselves 4 Supervision or touching assist (CGA). [place] provide cues , steadying assist 3 The helper provides less than half the effort to complete the activity 2 The helper provides more than half the effort to complete the activity 1 Dependent. The helper does all the effort to complete an activity 7 Patient refused to complete or attempt activity 9 The patient did not perform the activity before the current illness or injury 88 Not attempted due to Medical conditions or safety concerns Toileting (FIM): 5 Transfers (B, C, W/C) (FIM): 4 (SBA supine to sit. CGA sit to stand) Toilet/Commode Transfer (FIM): 5 Education OT Patient Education: Progress toward Goal/Update tx plan, Purpose of tx/ functional activities, Safety issues, Transfer techniques Teaching Recipient: Patient Teaching Methods: Discussion Response to Teaching: Verbalize Understanding OT Short Term Goals Short Term Goals Time Frame: Dec 12, 2017 Toileting(FIM): 5 Transfers (B,C,W/C) (FIM): 4 Toilet/Commode Transfer(FIM): 5 Additional Short Term Goals: 1-Demonstrate ADL Tasks, 2-Verbalize Understanding , 3-ImproveStrength/Yimi 1=Demonstrate adherence to instructed precautions during ADL tasks. 2=Patient will verbalize/demonstrate understanding of assistive devices/ modifications for ADL. 3=Patient will improve strength/tolerance for activity to enable patient to perform ADL's. OT Usp Goals Usp Goals Time Frame: Dec 26, 2017 Eating (FIM): 7 Eating (QC): 6 Groomin Oral Hygiene (QC): 6 Bathing(FIM): 6 Shower/Bathe Self (QC): 6 Upper Body Dressing(FIM): 6 Upper Body Dressing (QC): 6 Lower Body Dressing(FIM): 6 Lower Body Dressing (QC): 6 On/Off Footwear (QC): 6 Toileting(FIM): 6 Toileting Hygiene (QC): 6 Toilet/Commode Transfer(FIM): 6 Toilet/Commode Transfer (QC): 6 Shower Transfer(FIM): 6 Additional Goals: 1-Demonstrate ADL Tasks, 2-Verbalize Understanding, 3- ImproveStrength/Yimi 1=Demonstrate adherence to instructed precautions during ADL tasks. 2=Patient will verbalize/demonstrate understanding of assistive devices/ modifications for ADL. 3=Patient will improve strength/tolerance for activity to enable patient to perform ADL's. OT Education/Plan Problem List/Assessment Pt would benefit from skilled OT to increase her independence in basic self care to allow her to safely return to her home Discharge Recommendations Plan/Recommendations: Continue POC Treatment Plan/Plan of Care Patient would benefit from OT for education, treatment and training to promote independence in ADL's, mobility, safety and/or upper extremity function for ADL' s. Plan of Care: ADL Retraining, Functional Mobility, Group Exercise/Act as Ind ( education, exercise, functional activity, activity tolerance, functional mobility, socialization), UE Funct Exercise/Act, UE Neuromus Re-Ed/Coord Treatment Duration: Dec 26, 2017 Frequency: At least 5 of 7 days/Wk (IRF) Estimated Hrs Per Day: 1.5 hours per day Agreement: Yes Rehab Potential: Good Time/GCodes Start Time: 14:05 Stop Time: 14:30 Total Time Billed (hr/min): 25 Billed Treatment Time visit, 15 minutes functional activity, 10 minutes ADL ASHLI MEZA OT Dec 12, 2017 15:23
[2017-12-12 15:49] VITALS: BP 121/74
--- NOTE | 2017-12-12 16:15 | Occupational Ther Daily Note ---
OT Current Status-Daily Note Subjective No pain reported. Appearance Pt. up in chair. Agrees to work with OT. Mental Status/Objective Patient Orientation: Person, Place, Time, Situation Functional [place] Measure 0=Not Assessed/NA 4=Minimal Assistance 1=Total Assistance 5=Supervision or Setup 2=Maximal Assistance 6=Modified [place] 3=Moderate Assistance 7=Complete [place] ADL-Treatment Functional [place] Measure 0=Not Assessed/NA 4=Minimal Assistance 1=Total Assistance 5=Supervision or Setup 2=Maximal Assistance 6=Modified [place] 3=Moderate Assistance 7=Complete IndependenceIRFPAI Quality Coding Scale 6 Independent with activity with or without an assistive device 5 Patient requires set up or clean up by helper. Patient completes activity by themselves 4 Supervision or touching assist (CGA). [place] provide cues , steadying assist 3 The helper provides less than half the effort to complete the activity 2 The helper provides more than half the effort to complete the activity 1 Dependent. The helper does all the effort to complete an activity 7 Patient refused to complete or attempt activity 9 The patient did not perform the activity before the current illness or injury 88 Not attempted due to Medical conditions or safety concerns Other Treatment Pt. states that she is tired, and does request to stay in her room. Pt. completed 5 bilateral UE exercises x 15 reps x 3 lbs. to tolerance level. Pt. has difficulty lifting shoulders past 45 degrees. Tolerated treatment well. Pt. then completed bilateral UE exercises x 15 reps x 2 exercises for tricep extension with yellow theraband for increased UE strength with daily tasks and ADL transfers. Tolerated this well. All needs met in chair. Education OT Patient Education: Correct positioning, Exercise program, Progress toward Goal/Update tx plan, Purpose of tx/functional activities, Reviewed precautions, Rehab process, Transfer techniques Teaching Recipient: Patient Teaching Methods: Demonstration, Discussion Response to Teaching: Verbalize Understanding, Return Demonstration OT Short Term Goals Short Term Goals Time Frame: Dec 12, 2017 Toileting(FIM): 5 Transfers (B,C,W/C) (FIM): 4 Toilet/Commode Transfer(FIM): 5 Additional Short Term Goals: 1-Demonstrate ADL Tasks, 2-Verbalize Understanding , 3-ImproveStrength/Yimi 1=Demonstrate adherence to instructed precautions during ADL tasks. 2=Patient will verbalize/demonstrate understanding of assistive devices/ modifications for ADL. 3=Patient will improve strength/tolerance for activity to enable patient to perform ADL's. OT Lopper Goals Care Home Goals Time Frame: Dec 26, 2017 Eating (FIM): 7 Eating (QC): 6 Groomin Oral Hygiene (QC): 6 Bathing(FIM): 6 Shower/Bathe Self (QC): 6 Upper Body Dressing(FIM): 6 Upper Body Dressing (QC): 6 Lower Body Dressing(FIM): 6 Lower Body Dressing (QC): 6 On/Off Footwear (QC): 6 Toileting(FIM): 6 Toileting Hygiene (QC): 6 Toilet/Commode Transfer(FIM): 6 Toilet/Commode Transfer (QC): 6 Shower Transfer(FIM): 6 Additional Goals: 1-Demonstrate ADL Tasks, 2-Verbalize Understanding, 3- ImproveStrength/Yimi 1=Demonstrate adherence to instructed precautions during ADL tasks. 2=Patient will verbalize/demonstrate understanding of assistive devices/ modifications for ADL. 3=Patient will improve strength/tolerance for activity to enable patient to perform ADL's. OT Education/Plan Problem List/Assessment Assessment: Decreased Activ Tolerance, Decreased UE Strength, Dependent Transfers, Impaired I ADL's, Impaired Self-Care Skills Pt would benefit from skilled OT to increase her independence in basic self care to allow her to safely return to her home Discharge Recommendations Plan/Recommendations: Continue POC Therapy D/C Recommendations: Assisted Living Treatment Plan/Plan of Care Treatment,Training & Education: Yes Patient would benefit from OT for education, treatment and training to promote independence in ADL's, mobility, safety and/or upper extremity function for ADL' s. Plan of Care: ADL Retraining, Functional Mobility, Group Exercise/Act as Ind ( education, exercise, functional activity, activity tolerance, functional mobility, socialization), UE Funct Exercise/Act, UE Neuromus Re-Ed/Coord Treatment Duration: Dec 26, 2017 Frequency: At least 5 of 7 days/Wk (IRF) Estimated Hrs Per Day: 1.5 hours per day Agreement: Yes Rehab Potential: Good Time/GCodes Start Time: 15:00 Stop Time: 15:40 Total Time Billed (hr/min): 40 Billed Treatment Time 1, Ex x 3 FAUSTINO THRASHER OT Dec 12, 2017 16:15
[2017-12-12] MEDS: MONTELUKAST 10 MG (SINGULAIR) TAB PO SCH (21:15)
[2017-12-12] MEDS: ATORVASTATIN 40 MG (LIPITOR) TABLET PO SCH (21:15)
[2017-12-13 05:27] LABS: HEMOGLOBIN 7.9 G/DL (11.5-16.0); MEAN PLATELET VOLUME 8.4 FL (7.4-10.4); RED BLOOD COUNT 2.69 10^6/uL (4.35-5.85); WHITE BLOOD COUNT 6.8 10^3/uL (4.3-11.0)
[2017-12-13 05:32] VITALS: BP 111/68
[2017-12-13 05:40] LABS: INR 1.1 (0.8-1.4); PROTHROMBIN TIME PATIENT 13.7 SEC (12.2-14.7)
[2017-12-13 05:49] LABS: ALANINE AMINOTRANSFERASE 13 U/L (0-55); ALBUMIN 2.6 GM/DL (3.2-4.5); ALKALINE PHOSPHATASE 110 U/L (40-136); BILIRUBIN,TOTAL 0.2 MG/DL (0.1-1.0); BUN/CREATININE RATIO 19; CALCIUM 8.1 MG/DL (8.5-10.1); CARBON DIOXIDE 19 MMOL/L (21-32); CHLORIDE 114 MMOL/L (98-107); CREATININE SERUM 0.77 MG/DL (0.60-1.30); GFR ESTIMATED > 60; GLUCOSE 92 MG/DL (70-105); POTASSIUM 4.8 MMOL/L (3.6-5.0); SODIUM 140 MMOL/L (135-145)
[2017-12-13] MEDS: FOLIC ACID 1 MG TAB PO SCH (06:40)
[2017-12-13] MEDS: CYANOCOBALAMIN 1,000 MCG (VITAMIN B-12) TABLET PO SCH (06:40)
[2017-12-13] MEDS: CALCIUM CARBONATE 600 MG (CALCARB) TAB PO SCH (06:40)
[2017-12-13] MEDS: VITAMIN D3 1,000 UNITS (CHOLECALCIFEROL) TABLET PO SCH (06:40)
[2017-12-13] MEDS: ASCORBIC ACID (VIT C) 500 MG TABLET PO SCH (06:40)
[2017-12-13] MEDS: ENOXAPARIN 40 MG/0.4 ML (LOVENOX) SYR SC SCH ×2 (07:43→20:52)
[2017-12-13] MEDS: NS IV 1000 ML 1,000 ML IV SCH ×2 (07:43→22:30)
[2017-12-13] MEDS: RT-ALBUTEROL SULF 2.5 MG/3 ML PRE-MIX VIAL INH SCH ×2 (08:06→19:35)
[2017-12-13] MEDS: RT-ADVAIR HFA 115/21 MCG PER PUFF IH SCH ×2 (08:06→19:35)
--- NOTE | 2017-12-13 08:29 | PM & R (SOAP) Progress Note ---
Subjective This was a face to face visit with the patient. Date Seen by Provider: Dec 13, 2017 Time Seen by Provider: 07:55 Subjective/Events-last exam Patient was seen in her room this AM Tolerated CTA OK DR Salgado has reviewed report.Patient Mod assist for transfers Objective Physician Exam Last Set of Vital Signs Vital Signs Date Time Temp Pulse Resp B/P (MAP) Pulse Ox O2 Delivery O2 Flow Rate FiO2 12/13/17 08:06 91 Room Air 12/13/17 05:32 97.8 101 20 111/68 (82) Capillary Refill : Less Than 3 Seconds I&O Intake and Output 12/13/17 00:00 Intake Total 2350 ml Balance 2350 ml Intake Oral 1350 ml IV Total 1000 ml # Voids 8 General: Alert, Oriented X3, Cooperative, No Acute Distress HEENT: Atraumatic, PERRLA, EOMI, Mucous Memb Moist/[place] Neck: Supple, No JVD Lungs: Clear to Auscultation Heart: Regular Rate, Normal S1, Normal S2 Abdomen: Normal Bowel Sounds, Soft, No Tenderness, Other (obese) Extremities: Other (Chronic edema with wounds both shins RT >left) Skin: Other (Chronic wounds both legs RT > left) Neuro: Normal Speech, Sensation Intact, Other (Weaknee BLES) Results Lab Data Laboratory Tests 12/10/17 16:42: Glucometer 152H 12/11/17 05:03: Glucometer 116H 12/11/17 05:30: White Blood Count 7.1, Red Blood Count 2.68L, Hemoglobin 7.8L, Hematocrit 25L, Mean Corpuscular Volume 93, Mean Corpuscular Hemoglobin 29, Mean Corpuscular Hemoglobin Concent 32, Red Cell Distribution Width 15.6H, Platelet Count 311, Mean Platelet Volume 8.1, Neutrophils (%) (Auto) 65, Lymphocytes (%) (Auto) 19, Monocytes (%) (Auto) 13H, Eosinophils (%) (Auto) 3, Basophils (%) (Auto) 0, Neutrophils # (Auto) 4.6, Lymphocytes # (Auto) 1.4, Monocytes # (Auto) 0.9, Eosinophils # (Auto) 0.2, Basophils # (Auto) 0.0, Sodium Level 135, Potassium Level 4.6, Chloride Level 108H, Carbon Dioxide Level 19L, Anion Gap 8, Blood Urea Nitrogen 22H, Creatinine 0.85, Estimat Glomerular Filtration Rate > 60, BUN /Creatinine Ratio 26, Glucose Level 94, Calcium Level 8.0L, Iron Level 17L, Total Iron Binding Capacity 157L, Unsaturated Iron Binding Capacity 140, Transferrin % Saturation 11L, Ferritin 202.1H 12/11/17 15:50: Glucometer 123H 12/12/17 05:25: Glucometer 117H 12/12/17 11:10: Glucometer 94 12/12/17 15:47: Glucometer 113H 12/13/17 05:15: White Blood Count 6.8, Red Blood Count 2.69L, Hemoglobin 7.9L, Hematocrit 25L, Mean Corpuscular Volume 93, Mean Corpuscular Hemoglobin 29, Mean Corpuscular Hemoglobin Concent 32, Red Cell Distribution Width 16.0H, Platelet Count 318, Mean Platelet Volume 8.4, Prothrombin Time 13.7, INR Comment 1.1, Activated Partial Thromboplast Time 32, Sodium Level 140, Potassium Level 4.8, Chloride Level 114H, Carbon Dioxide Level 19L, Anion Gap 7, Blood Urea Nitrogen 15, Creatinine 0.77, Estimat Glomerular Filtration Rate > 60, BUN/Creatinine Ratio 19, Glucose Level 92, Calcium Level 8.1L, Corrected Calcium 9.2, Total Bilirubin 0.2, Aspartate Amino Transf (AST/SGOT) 28, Alanine Aminotransferase ( ALT/SGPT) 13, Alkaline Phosphatase 110, Total Protein 5.0L, Albumin 2.6L 12/13/17 05:17: Glucometer 90 Assessment/Plan Assessment and Plan General debil secondary to Chronic wounds both legs DR Salgado managing Hypotension with HX of HTN Benicar held Chronic anemia has Injections via [facility] received dose earlier this week Acute exacerbation of asthma treated DM controlled DVT Prophylaxis on Lovenox subcut Plan Continue PT/OT/Wound care F/U with DR Terry Next Team Conference 12-18-17 Co-Morbidities that are continuing to impact the rehab process: (include details ) JANNET GOTTI MD Dec 13, 2017 08:29
[2017-12-13] MEDS: ACETAMINOPHEN 500 MG TAB (TYLENOL) PO PRN ×2 (08:42→16:08)
--- NOTE | 2017-12-13 09:23 | Cardiology Progress Note ---
Subjective Date Seen by Provider: Dec 13, 2017 Time Seen by Provider: 09:22 Subjective/Events-last exam Patient was seen during physical therapy session. Feeling better, started wraps on her legs Review of Systems General: No Chills, No Night Sweats; Fatigue, Malaise; No Appetite, No Other HEENT: No Head Aches, No Visual Changes, No Eye Pain, No Ear Pain, No Dysphasia , No Sinus Congestion, No Post Nasal Drip, No Sore Throat, No Other Pulmonary: Dyspnea; No Cough, No Pleuritic Chest Pain, No Other Cardiovascular: Edema; No: Chest Pain, Palpitations, Orthopnea, Paroxysmal Noc. Dyspnea, Lt Headedness, Other Objective-Cardiology Exam Last Set of Vital Signs Vital Signs 12/13/17 12/13/17 05:32 08:06 Temp 97.8 Pulse 101 Resp 20 B/P (MAP) 111/68 (82) Pulse Ox 91 O2 Delivery Room Air Capillary Refill : Less Than 3 Seconds I&O Intake and Output 12/13/17 00:00 Intake Total 2350 ml Balance 2350 ml Intake Oral 1350 ml IV Total 1000 ml # Voids 8 General: Alert, Oriented X3, Cooperative, No Acute Distress HEENT: Atraumatic, PERRLA, EOMI, Mucous Memb Moist/[place] Neck: Supple, No JVD Lungs: Clear to Auscultation Heart: Regular Rate, Normal S1, Normal S2 Abdomen: Normal Bowel Sounds, Soft, No Tenderness, Other (obese) Extremities: Other (Chronic edema with wounds both shins RT >left) Skin: Other (Chronic wounds both legs RT > left) Neuro: Normal Speech, Sensation Intact, Other (Weaknee BLES) Results Lab Laboratory Tests 12/13/17 05:15 A/P-Cardiology Admission Diagnosis Foot ulcer Generalized weakness and debility Chronic venous insufficiency Diabetes mellitus Peripheral arterial disease Assessment/Plan Nonhealing foot ulcers, history of venous stasis ulcers. GEETA was abnormal, ultrasound of the arterial was nondiagnostic, CT showed patent artery with anterior tibial patent down to the foot. The posterior tibial and peroneal arteries were not well visualized. I discussed the management plan with Dr. Salgado and we will try compression therapy for her venous stasis ulcers. Will continue monitoring her status closely Generalized weakness and loss of energy, receiving physical therapy. Improving slowly. Shortness of breath on exertion, receiving physical therapy. Chronic kidney disease, started on IV fluid and monitor renal function. Hypertension, continue to hold Benicar and continue to monitor. Hyperlipidemia, monitor lipids. Anemia, myelodysplastic, has been followed by Dr. Troncoso. Morbid obesity, BMI is 44, discussed weight loss and exercise. History of COPD, obstructive sleep apnea using C Pap. Clinical Quality Measures DVT/VTE Risk/Contraindication: Risk Factor Score Per Nursin RFS Level Per Nursing on Admit: 4+=Very High ARIANA BARROS MD Dec 13, 2017 09:23
--- NOTE | 2017-12-13 10:51 | Physical Therapy Daily Note ---
PT Daily Note-Current Subjective Agrees to PT. No complaints. Pain Numeric Pain Scale: 6 Location: Right, Left Location Body Site: Knee Pain Description: Ache Comment: Pt took Tylenol for pain Mental Status Patient Orientation: Person, Place, Time, Situation Attachments: IV Transfers Functional [place] Measure 0=Not Assessed/NA 4=Minimal Assistance 1=Total Assistance 5=Supervision or Setup 2=Maximal Assistance 6=Modified [place] 3=Moderate Assistance 7=Complete IndependenceIRFPAI Quality Coding Scale 6 Independent with activity with or without an assistive device 5 Patient requires set up or clean up by helper. Patient completes activity by themselves 4 Supervision or touching assist (CGA). [place] provide cues , steadying assist 3 The helper provides less than half the effort to complete the activity 2 The helper provides more than half the effort to complete the activity 1 Dependent. The helper does all the effort to complete an activity 7 Patient refused to complete or attempt activity 9 The patient did not perform the activity before the current illness or injury 88 Not attempted due to Medical conditions or safety concerns Supine to/from Sit: 4 (light assist to sit up from reclined position, pt able to manage her legs. ) Sit to Stand (QC): 4 (SB - min assist, depending on surface height.) Often required multiple attempts and rocking to stand up; sit to stand from bed , chair and toilet; sit to stand x 5 from mat in gym and then again from the mat at a lower height x 5. Weight Bearing Right Lower Extremity: Right Full Weight Bearing Left Lower Extremity: Left Full Weight Bearing Gait Training Does the Patient Walk?: Yes Gait (FIM): 2 Distance (FIM): 8=880-52 ft Distance: 75 ft x 4 Gait Assistive Device: FWW slow gait with severe forward flexion at the hips, decreased step length, foot clearance and speed. Exercises Seated Therapy Exercises: Ankle pumps, Long arc quads, Hip flexion Seated Reps: 15 (LE strength to improve gait and transfers. ) Treatments Spent time with getting out of bed and with toileting, all addressing transfers , static and dynamic balance and functional activity skills. Assessment Pt is progressing but is very slow with all tasks. Gait is slow and appears labored. PT Short Term Goals Short Term Goals Time Frame: Dec 12, 2017 Transfers (B,C,W/C) (FIM): 4 (met) Gait (FIM): 2 Gait Distance Comment: 100' Gait Level of Assist: 4 Gait Assistive Device: FWW Wheelchair Distance: 60',120' PT Detention Goals Detail Manager Goals PT Detail Manager Goals Time Frame: Dec 26, 2017 Transfers (B,C,W/C) (FIM): 5 Sit to Lying (QC): 4 Lying-Sitting on Side/Bed(QC): 4 Sit to Stand (QC): 4 Rollin Roll Left to Right (QC): 4 Chair/Wdn-wv-Xgkwe Xfer(QC): 4 Car Transfer (QC): 4 Does the Patient Walk: Yes Gait (FIM): 5 Distance: 150' Walk 10 feet (QC): 4 Walk 10ft-Uneven Surface(QC): 4 Walk 50ft with 2 Turns (QC): 4 Walk 150 ft (QC): 4 Gait Level of Assist: 5 Gait Assistive Device: FWW Stairs (FIM): 2 # of Steps: 4 1 Step (curb) (QC): 4 4 Steps (QC): 4 12 Steps (QC): 4 Stairs Level Of Assist: 4 PT Plan Problem List Problem List: Activity Tolerance, Functional Strength, Safety, Balance, Gait, Transfer, Bed Mobility Treatment/Plan Treatment Plan: Continue Plan of Care Treatment Plan: Bed Mobility, Concurrent Therapy, Education, Functional Activity Yimi, Functional Strength, Group Therapy, Gait, Safety, Therapeutic Exercise, Transfers Treatment Duration: Dec 26, 2017 Frequency: Modified Program (IRF) Estimated Hrs Per Day: 1.5 hours per day Patient and/or Family Agrees t: Yes Safety Risks/Education Patient Education: Transfer Techniques, Safety Issues Teaching Recipient: Patient Teaching Methods: Demonstration, Discussion Response to Teaching: Reinforcement Needed Discharge Recommendations Therapy D/C Recommendations: Physical Therapy Home Care Time/GCodes Time In: 800 Time Out: 915 Total Billed Treatment Time: 75 Total Billed Treatment visit Ex 30 Gt 15 FA 30 TEA RODRIGUEZ PT Dec 13, 2017 10:51
--- NOTE | 2017-12-13 11:09 | Progress Note-Hospitalist ---
Subjective HPI/CC On Admission Date Seen by Provider: Dec 13, 2017 Time Seen by Provider: 10:40 CC: Medical management during inpatient rehabilitation stay for debility HPI: This is a 72-year-old white female clinic patient of Dr. Roblero who presented to the inpatient rehabilitation facility when she requested help with lower extremity lymphedema and ulcers could no longer make it at home. Adeline at the cancer center arranged this. Dr. Salgado is managing her lower red[place] the wounds with a and D ointment and Yonny wrappings. Ultrasound was completed yesterday and Dr. Salgado was pleased with the results. 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 Subjective/Events-last exam Patient reports Dr. Olivia was in and both she and he will please with ulcer appearance she states that the bases are clean. She is currently bandaged with compression garments on regards to her lower extremities to the upper calf. She reports no pain except for some arthritic related aches in regards to her knees. The symptoms are mild and not impeding therapy which has been progressing. She denies shortness of breath and has had some improvement in stamina. She reported that exercise O2 sat yesterday was 92 percent which is an improvement. Objective Exam Vital Signs Vital Signs Date Time Temp Pulse Resp B/P (MAP) Pulse Ox O2 Delivery O2 Flow Rate FiO2 12/13/17 08:06 91 Room Air 12/13/17 05:32 97.8 101 20 111/68 (82) Capillary Refill : Less Than 3 Seconds General Appearance: No Apparent Distress, Chronically ill, Obese Respiratory: Chest Non Tender, Lungs Clear, Normal Breath Sounds, No Accessory Muscle Use, No Respiratory Distress Cardiovascular: Regular Rate, Rhythm, No Edema, No Gallop, No JVD, No Murmur Extremity: Other (Decreased pedal edema this morning only 1+ legs wrapped with likely trace brawny edema feet are warm.) Results/Procedures Lab Laboratory Tests 12/13/17 05:15 Patient resulted labs reviewed. Assessment/Plan Assessment and Plan Assess & Plan/Chief Complaint 1. Multifactorial debility complicated by obesity myelodysplastic anemia for which there have been components of iron deficiency in the past OA of the knees and lower extremity ulcerations with known venous insufficiency. . 2. Myelodysplastic anemia somewhat responsive to erythropoietin with past iron deficiency anemia as well per this patient's report last dose of IV iron was in March. Iron studies are compatible significant iron deficiency anemia with low transference saturation and low iron level. Ferritin level likely mildly elevated only do to its acute phase reactant properties from inflammation for her chronic venous insufficiency ulcers. Iron sucrose not available so we'll give dextran variety 200 mg every other day 5 doses. 3. Type II diabetes mellitus with weight loss is been under good control. Patient off pioglitazone due to edema and will continue to hold metformin as blood sugars have been normal. 4. CT angiography lower extremities was not ideal but reasonable revealing no significant obstruction.. Clinical Quality Measures DVT/VTE Risk/Contraindication: Risk Factor Score Per Nursin RFS Level Per Nursing on Admit: 4+=Very High JOHN ROBLERO MD Dec 13, 2017 11:09
--- NOTE | 2017-12-13 11:19 | Occupational Ther Daily Note ---
OT Current Status-Daily Note Subjective Pt seen in room, up on shower bench, agreeable to OT. Just finished with PT. No pain mentioned. Appearance Alert, cooperative Mental Status/Objective Functional [place] Measure 0=Not Assessed/NA 4=Minimal Assistance 1=Total Assistance 5=Supervision or Setup 2=Maximal Assistance 6=Modified [place] 3=Moderate Assistance 7=Complete [place] ADL-Treatment Pt undressed with SBA and washed/dried all parts with setup, using shower bench , grab bars, hand held shower. She was able to remove dressings on LEs during shower. Needed SBA to stand up in shower but min assist to step out of shower stall. Walked with SBA, FWW to bed. Dressed upper body with setup, min assist lower body (to get pants over bottom), using dressing stick. Got back up off bed with SBA, FWW and walked with SBA to bathroom to brush teeth, comb hair at sink, SBA. Pt walked back to recliner and left up in recliner, all needs met. Functional [place] Measure 0=Not Assessed/NA 4=Minimal Assistance 1=Total Assistance 5=Supervision or Setup 2=Maximal Assistance 6=Modified [place] 3=Moderate Assistance 7=Complete IndependenceIRFPAI Quality Coding Scale 6 Independent with activity with or without an assistive device 5 Patient requires set up or clean up by helper. Patient completes activity by themselves 4 Supervision or touching assist (CGA). [place] provide cues , steadying assist 3 The helper provides less than half the effort to complete the activity 2 The helper provides more than half the effort to complete the activity 1 Dependent. The helper does all the effort to complete an activity 7 Patient refused to complete or attempt activity 9 The patient did not perform the activity before the current illness or injury 88 Not attempted due to Medical conditions or safety concerns Grooming (FIM): 5 (SBA standing at sink. Washed face and hands in shower. ) Bathing (FIM): 5 (Washed and dried all parts except back, using grab bar, hand held shower, shower bench. ) Upper Body (FIM): 5 (Dressed upper body with setup) Lower Body Dressing (FIM): 5 (Used dressing stick to put pants on over feet. Able to pull them up over thighs but needed a little help to pull them up over hips. FWW) Transfers (B, C, W/C) (FIM): 3 (Needed help to get both legs into bed but able to get both legs out by herself. ) Shower Transfer(FIM): 4 (Needed help moving feet out of shower to position them with FWW. ) Education OT Patient Education: Modified ADL techniques, Progress toward Goal/Update tx plan, Purpose of tx/functional activities, Safety issues, Transfer techniques, Use of adapted equipment Teaching Recipient: Patient Teaching Methods: Discussion Response to Teaching: Verbalize Understanding, Return Demonstration OT Short Term Goals Short Term Goals Time Frame: Dec 12, 2017 Toileting(FIM): 5 Transfers (B,C,W/C) (FIM): 4 (met) Toilet/Commode Transfer(FIM): 5 Additional Short Term Goals: 1-Demonstrate ADL Tasks, 2-Verbalize Understanding , 3-ImproveStrength/Yimi 1=Demonstrate adherence to instructed precautions during ADL tasks. 2=Patient will verbalize/demonstrate understanding of assistive devices/ modifications for ADL. 3=Patient will improve strength/tolerance for activity to enable patient to perform ADL's. OT Halfway Goals Lead Generation Marketing Manager Goals Time Frame: Dec 26, 2017 Eating (FIM): 7 Eating (QC): 6 Groomin Oral Hygiene (QC): 6 Bathing(FIM): 6 Shower/Bathe Self (QC): 6 Upper Body Dressing(FIM): 6 Upper Body Dressing (QC): 6 Lower Body Dressing(FIM): 6 Lower Body Dressing (QC): 6 On/Off Footwear (QC): 6 Toileting(FIM): 6 Toileting Hygiene (QC): 6 Toilet/Commode Transfer(FIM): 6 Toilet/Commode Transfer (QC): 6 Shower Transfer(FIM): 6 Additional Goals: 1-Demonstrate ADL Tasks, 2-Verbalize Understanding, 3- ImproveStrength/Yimi 1=Demonstrate adherence to instructed precautions during ADL tasks. 2=Patient will verbalize/demonstrate understanding of assistive devices/ modifications for ADL. 3=Patient will improve strength/tolerance for activity to enable patient to perform ADL's. OT Education/Plan Problem List/Assessment Pt would benefit from skilled OT to increase her independence in basic self care to allow her to safely return to her home Discharge Recommendations Plan/Recommendations: Continue POC Treatment Plan/Plan of Care Patient would benefit from OT for education, treatment and training to promote independence in ADL's, mobility, safety and/or upper extremity function for ADL' s. Plan of Care: ADL Retraining, Functional Mobility, Group Exercise/Act as Ind ( education, exercise, functional activity, activity tolerance, functional mobility, socialization), UE Funct Exercise/Act, UE Neuromus Re-Ed/Coord Treatment Duration: Dec 26, 2017 Frequency: At least 5 of 7 days/Wk (IRF) Estimated Hrs Per Day: 1.5 hours per day Agreement: Yes Rehab Potential: Good Time/GCodes Start Time: 09:15 Stop Time: 10:45 Total Time Billed (hr/min): 90 Billed Treatment Time visit, 90 minutes ADL ASLHI MEZA OT Dec 13, 2017 11:19
--- NOTE | 2017-12-13 14:32 | Physical Therapy Daily Note ---
PT Daily Note-Current Subjective Patient reports fatigue. Pain Numeric Pain Scale: 0-No Pain Location: No Pain Reported Mental Status Patient Orientation: Normal For Age Transfers Functional [place] Measure 0=Not Assessed/NA 4=Minimal Assistance 1=Total Assistance 5=Supervision or Setup 2=Maximal Assistance 6=Modified [place] 3=Moderate Assistance 7=Complete IndependenceIRFPAI Quality Coding Scale 6 Independent with activity with or without an assistive device 5 Patient requires set up or clean up by helper. Patient completes activity by themselves 4 Supervision or touching assist (CGA). [place] provide cues , steadying assist 3 The helper provides less than half the effort to complete the activity 2 The helper provides more than half the effort to complete the activity 1 Dependent. The helper does all the effort to complete an activity 7 Patient refused to complete or attempt activity 9 The patient did not perform the activity before the current illness or injury 88 Not attempted due to Medical conditions or safety concerns Transfers (B, C, W/C) (FIM): 3 Scootin Supine to/from Sit: 3 Sit to/from Stand: 3 Sit to Lying (QC): 3 Sit to Stand (QC): 3 Chair/Gzi-xk-Gkdvh Xfer(QC): 5 Bed to/from Chair: 5 Weight Bearing Right Lower Extremity: Right Full Weight Bearing Left Lower Extremity: Left Full Weight Bearing Gait Training Does the Patient Walk?: Yes Gait (FIM): 2 Distance (FIM): 3=641-31 ft Distance: 100' x 2 Walk 10 feet (QC): 5 Walk 50 ft with 2 Turns(QC): 5 Gait Level of Assist: 5 Gait Assistive Device: FWW trunk flexed posture/shuffle gait sequence Assessment Patient tolerated treatment and is in bed with bilateral LE elevated. PT Short Term Goals Short Term Goals Time Frame: Dec 12, 2017 Transfers (B,C,W/C) (FIM): 4 (met) Gait (FIM): 2 Gait Distance Comment: 100' Gait Level of Assist: 4 Gait Assistive Device: FWW Wheelchair Distance: 60',120' PT Dispatcher Service Or Work Goals Dispatcher Service Or Work Goals PT Dispatcher Service Or Work Goals Time Frame: Dec 26, 2017 Transfers (B,C,W/C) (FIM): 5 Sit to Lying (QC): 4 Lying-Sitting on Side/Bed(QC): 4 Sit to Stand (QC): 4 Rollin Roll Left to Right (QC): 4 Chair/Qdb-ay-Pygqr Xfer(QC): 4 Car Transfer (QC): 4 Does the Patient Walk: Yes Gait (FIM): 5 Distance: 150' Walk 10 feet (QC): 4 Walk 10ft-Uneven Surface(QC): 4 Walk 50ft with 2 Turns (QC): 4 Walk 150 ft (QC): 4 Gait Level of Assist: 5 Gait Assistive Device: FWW Stairs (FIM): 2 # of Steps: 4 1 Step (curb) (QC): 4 4 Steps (QC): 4 12 Steps (QC): 4 Stairs Level Of Assist: 4 PT Plan Treatment/Plan Treatment Plan: Continue Plan of Care Treatment Plan: Bed Mobility, Concurrent Therapy, Education, Functional Activity Yimi, Functional Strength, Group Therapy, Gait, Safety, Therapeutic Exercise, Transfers Treatment Duration: Dec 26, 2017 Frequency: Modified Program (IRF) Estimated Hrs Per Day: 1.5 hours per day Patient and/or Family Agrees t: Yes Time/GCodes Time In: 1400 Time Out: 1415 Total Billed Treatment Time: 15 Total Billed Treatment 1 visit GT 15 min KWASI DISLA PT Dec 13, 2017 14:32
[2017-12-13] MEDS ORDERED: IRON SUCROSE 200 MG/10 ML (VENOFER) VIAL IV ONE (17:39)
[2017-12-13] MEDS: IRON SUCROSE 200 MG/10 ML (VENOFER) VIAL IV SCH (17:47)
[2017-12-13 18:00] VITALS: BP 124/73
[2017-12-13] MEDS: MONTELUKAST 10 MG (SINGULAIR) TAB PO SCH (20:51)
[2017-12-13] MEDS: ATORVASTATIN 40 MG (LIPITOR) TABLET PO SCH (20:51)
[2017-12-14] MEDS: NS IV 1000 ML 1,000 ML IV SCH (02:00)
[2017-12-14 05:01] VITALS: BP 127/73
[2017-12-14] MEDS: ASCORBIC ACID (VIT C) 500 MG TABLET PO SCH (06:47)
[2017-12-14] MEDS: CYANOCOBALAMIN 1,000 MCG (VITAMIN B-12) TABLET PO SCH (06:47)
[2017-12-14] MEDS: CALCIUM CARBONATE 600 MG (CALCARB) TAB PO SCH (06:47)
[2017-12-14] MEDS: VITAMIN D3 1,000 UNITS (CHOLECALCIFEROL) TABLET PO SCH (06:47)
[2017-12-14] MEDS: FOLIC ACID 1 MG TAB PO SCH (06:47)
[2017-12-14] MEDS: RT-ALBUTEROL SULF 2.5 MG/3 ML PRE-MIX VIAL INH SCH ×2 (08:49→22:31)
[2017-12-14] MEDS: RT-ADVAIR HFA 115/21 MCG PER PUFF IH SCH ×2 (08:49→22:31)
[2017-12-14] MEDS ORDERED: IRON SUCROSE 200 MG/10 ML (VENOFER) VIAL IV SCH (09:00)
[2017-12-14] MEDS: ENOXAPARIN 40 MG/0.4 ML (LOVENOX) SYR SC SCH ×2 (09:09→21:27)
--- NOTE | 2017-12-14 10:33 | Occupational Ther Daily Note ---
OT Current Status-Daily Note Subjective Pt alert and willing to participate with OT services this date. Pt with no reports of pain, however she does report feeling short of breath. Mental Status/Objective Patient Orientation: Person, Place, Time, Situation Functional [place] Measure 0=Not Assessed/NA 4=Minimal Assistance 1=Total Assistance 5=Supervision or Setup 2=Maximal Assistance 6=Modified [place] 3=Moderate Assistance 7=Complete [place] ADL-Treatment Functional [place] Measure 0=Not Assessed/NA 4=Minimal Assistance 1=Total Assistance 5=Supervision or Setup 2=Maximal Assistance 6=Modified [place] 3=Moderate Assistance 7=Complete IndependenceIRFPAI Quality Coding Scale 6 Independent with activity with or without an assistive device 5 Patient requires set up or clean up by helper. Patient completes activity by themselves 4 Supervision or touching assist (CGA). [place] provide cues , steadying assist 3 The helper provides less than half the effort to complete the activity 2 The helper provides more than half the effort to complete the activity 1 Dependent. The helper does all the effort to complete an activity 7 Patient refused to complete or attempt activity 9 The patient did not perform the activity before the current illness or injury 88 Not attempted due to Medical conditions or safety concerns Other Treatment Pt participated in BUE ther ex with use of yellow theraband through gross UE planes of motion. Pt with limited shoulder flexion and abduction through LUE due to history of OA with decreased mobility. Pt with no complaints of pain with tx. Pt educated on importance of participating in HEP with use of theraband, in order to improve functional use of UE's during self cares. Education OT Patient Education: Exercise program, Home exercise program Teaching Recipient: Patient Teaching Methods: Demonstration, Discussion Response to Teaching: Verbalize Understanding, Return Demonstration OT Short Term Goals Short Term Goals Time Frame: Dec 12, 2017 Toileting(FIM): 5 Transfers (B,C,W/C) (FIM): 4 (met) Toilet/Commode Transfer(FIM): 5 Additional Short Term Goals: 1-Demonstrate ADL Tasks, 2-Verbalize Understanding , 3-ImproveStrength/Yimi 1=Demonstrate adherence to instructed precautions during ADL tasks. 2=Patient will verbalize/demonstrate understanding of assistive devices/ modifications for ADL. 3=Patient will improve strength/tolerance for activity to enable patient to perform ADL's. OT Senior Care Goals Blending Machine Operator Goals Time Frame: Dec 26, 2017 Eating (FIM): 7 Eating (QC): 6 Groomin Oral Hygiene (QC): 6 Bathing(FIM): 6 Shower/Bathe Self (QC): 6 Upper Body Dressing(FIM): 6 Upper Body Dressing (QC): 6 Lower Body Dressing(FIM): 6 Lower Body Dressing (QC): 6 On/Off Footwear (QC): 6 Toileting(FIM): 6 Toileting Hygiene (QC): 6 Toilet/Commode Transfer(FIM): 6 Toilet/Commode Transfer (QC): 6 Shower Transfer(FIM): 6 Additional Goals: 1-Demonstrate ADL Tasks, 2-Verbalize Understanding, 3- ImproveStrength/Yimi 1=Demonstrate adherence to instructed precautions during ADL tasks. 2=Patient will verbalize/demonstrate understanding of assistive devices/ modifications for ADL. 3=Patient will improve strength/tolerance for activity to enable patient to perform ADL's. OT Education/Plan Problem List/Assessment Pt would benefit from skilled OT to increase her independence in basic self care to allow her to safely return to her home Discharge Recommendations Plan/Recommendations: Continue POC Treatment Plan/Plan of Care Patient would benefit from OT for education, treatment and training to promote independence in ADL's, mobility, safety and/or upper extremity function for ADL' s. Plan of Care: ADL Retraining, Functional Mobility, Group Exercise/Act as Ind ( education, exercise, functional activity, activity tolerance, functional mobility, socialization), UE Funct Exercise/Act, UE Neuromus Re-Ed/Coord Treatment Duration: Dec 26, 2017 Frequency: At least 5 of 7 days/Wk (IRF) Estimated Hrs Per Day: 1.5 hours per day Agreement: Yes Rehab Potential: Good Time/GCodes Start Time: 10:10 Stop Time: 10:30 Total Time Billed (hr/min): 20 Billed Treatment Time 1EX MARLI VÁSQUEZ OT Dec 14, 2017 10:33
--- NOTE | 2017-12-14 11:16 | Physical Therapy Daily Note ---
PT Daily Note-Current Subjective Pt. agrees to Rx. States she feels like all her tests came back clear from her vascular testing and lungs, " but i still have this cough" Pain Numeric Pain Scale: 0-No Pain Mental Status Patient Orientation: Normal For Age Attachments: IV Transfers Functional [place] Measure 0=Not Assessed/NA 4=Minimal Assistance 1=Total Assistance 5=Supervision or Setup 2=Maximal Assistance 6=Modified [place] 3=Moderate Assistance 7=Complete IndependenceIRFPAI Quality Coding Scale 6 Independent with activity with or without an assistive device 5 Patient requires set up or clean up by helper. Patient completes activity by themselves 4 Supervision or touching assist (CGA). [place] provide cues , steadying assist 3 The helper provides less than half the effort to complete the activity 2 The helper provides more than half the effort to complete the activity 1 Dependent. The helper does all the effort to complete an activity 7 Patient refused to complete or attempt activity 9 The patient did not perform the activity before the current illness or injury 88 Not attempted due to Medical conditions or safety concerns Transfers (B, C, W/C) (FIM): 3 (needs assist sit to stand from standard height chair, has lift recline in room and was educated on its use) Scootin Sit to/from Stand: 3 (5 from lift chair) Weight Bearing Right Lower Extremity: Right Full Weight Bearing Left Lower Extremity: Left Full Weight Bearing Gait Training Does the Patient Walk?: Yes Gait (FIM): 2 Distance (FIM): 2=804-98 ft (100,125,50) Gait Level of Assist: 4 Gait Persons Needed: 1 Gait Assistive Device: FWW heavy weight bearing on FWW, flexed over FWW at trunk Exercises Seated Therapy Exercises: Ankle pumps, Sit to stand, Long arc quads, Hip flexion, Hip abd/add Seated Reps: 15 Assessment Current Status: Good Progress still struggles with some mild dyspnea and fatigue, weakness in LEs with gait PT Short Term Goals Short Term Goals Time Frame: Dec 12, 2017 Transfers (B,C,W/C) (FIM): 4 (met) Gait (FIM): 2 Gait Distance Comment: 100' Gait Level of Assist: 4 Gait Assistive Device: FWW Wheelchair Distance: 60',120' PT Turbine Operator Goals Longterm Goals PT Turbine Operator Goals Time Frame: Dec 26, 2017 Transfers (B,C,W/C) (FIM): 5 Sit to Lying (QC): 4 Lying-Sitting on Side/Bed(QC): 4 Sit to Stand (QC): 4 Rollin Roll Left to Right (QC): 4 Chair/Ibz-pg-Qgovt Xfer(QC): 4 Car Transfer (QC): 4 Does the Patient Walk: Yes Gait (FIM): 5 Distance: 150' Walk 10 feet (QC): 4 Walk 10ft-Uneven Surface(QC): 4 Walk 50ft with 2 Turns (QC): 4 Walk 150 ft (QC): 4 Gait Level of Assist: 5 Gait Assistive Device: FWW Stairs (FIM): 2 # of Steps: 4 1 Step (curb) (QC): 4 4 Steps (QC): 4 12 Steps (QC): 4 Stairs Level Of Assist: 4 PT Plan Treatment/Plan Treatment Plan: Continue Plan of Care Treatment Plan: Bed Mobility, Concurrent Therapy, Education, Functional Activity Yimi, Functional Strength, Group Therapy, Gait, Safety, Therapeutic Exercise, Transfers Treatment Duration: Dec 26, 2017 Frequency: Modified Program (IRF) Estimated Hrs Per Day: 1.5 hours per day Patient and/or Family Agrees t: Yes Safety Risks/Education Patient Education: Gait Training, Transfer Techniques, Correct Positioning, Disease Process, Safety Issues Teaching Recipient: Patient Teaching Methods: Demonstration, Discussion Response to Teaching: Verbalize Understanding, Return Demonstration, Reinforcement Needed educated in use of lift recline chair Time/GCodes Time In: 1035 Time Out: 1105 Total Billed Treatment Time: 30 Total Billed Treatment 1,FA15m,GT15m G Codes Necessary: WERNER Leiva PTA Dec 14, 2017 11:16
--- NOTE | 2017-12-14 14:55 | Progress Note-Cardiology ---
Cardiology SOAP Progress Note Subjective: Notes gen malaise, slowly improving Does not report cp or palp or syncope or shortness of breath at rest Objective: I&O/Vital Signs 12/14/17 12/14/17 05:01 08:51 Temp 98.6 Pulse 103 Resp 18 B/P (MAP) 127/73 (91) Pulse Ox 92 91 O2 Delivery NIV CPAP Room Air 12/14/17 00:00 Intake Total 960 ml Balance 960 ml Weight (Pounds): 292 Weight (Ounces): 9.6 Weight (Calculated Kilograms): 132.524902 Constitutional: AAO x 3, well-developed, well-nourished Respiratory: No accessory muscle use; other (good bilat air entry) Cardiovascular: regular rate-rhythm, S1 and S2, systolic murmur (faint MICHEAL at card base) Gastrointestional: No tender; soft; No guarding, No rebound; audible bowel sounds Extremities: swelling (mod bilat leg swelling, both legs under wrap); No clubbing, No cyanosis Neurologic/Psychiatric: oriented x 3, grossly intact, power is 5/5 both on sides Skin: No rash on exposed areas; ulcerations on exposed areas (both legs under wrap that was not removed) Results/Procedures: Labs Laboratory Tests 12/13/17 16:27: Glucometer 113H 12/14/17 06:46: Glucometer 97 Laboratory Tests 12/13/17 05:15 A/P: Assessment: Gen malaise, shortness of breath and weakness, slowly improving Nonhealing foot ulcers, likely venous stasis ulcers, being managed by Dr Naomi REBOLLAR. GEETA was abnormal, ultrasound of the arterial was nondiagnostic, CT showed patent artery with anterior tibial patent down to the foot. The posterior tibial and peroneal arteries were not well visualized. Managed by Dr Whittington H/o CKD, but renal function back to essentially normal with iv fluids Hypertension, by history Hyperlipidemia, by history Anemia, myelodysplastic, has been followed by Dr. Troncoso. Morbid obesity, BMI is 47 Obstructive sleep apnea treated with CPAP Plan: * I reviewed her records, interviewed her, examined her and answered her questions * D/c iv fluids * Check with Med Svce if metformin should be continued * Monitor labs from time to time MEL HAHN MD FACP FAC CCDS Dec 14, 2017 14:55
[2017-12-14] MEDS: ACETAMINOPHEN 500 MG TAB (TYLENOL) PO PRN (16:51)
[2017-12-14 17:41] VITALS: BP 119/69
[2017-12-14] MEDS: ATORVASTATIN 40 MG (LIPITOR) TABLET PO SCH (21:27)
[2017-12-14] MEDS: MONTELUKAST 10 MG (SINGULAIR) TAB PO SCH (21:27)
[2017-12-15] MEDS: ACETAMINOPHEN 500 MG TAB (TYLENOL) PO PRN ×2 (00:06→16:58)
[2017-12-15] MEDS: FOLIC ACID 1 MG TAB PO SCH (05:47)
[2017-12-15] MEDS: ASCORBIC ACID (VIT C) 500 MG TABLET PO SCH (05:47)
[2017-12-15] MEDS: VITAMIN D3 1,000 UNITS (CHOLECALCIFEROL) TABLET PO SCH (05:47)
[2017-12-15] MEDS: CYANOCOBALAMIN 1,000 MCG (VITAMIN B-12) TABLET PO SCH (05:47)
[2017-12-15] MEDS: CALCIUM CARBONATE 600 MG (CALCARB) TAB PO SCH (05:47)
[2017-12-15 05:52] VITALS: BP 132/97
[2017-12-15] MEDS: RT-ALBUTEROL SULF 2.5 MG/3 ML PRE-MIX VIAL INH SCH ×2 (06:24→21:38)
[2017-12-15] MEDS: RT-ADVAIR HFA 115/21 MCG PER PUFF IH SCH ×2 (06:24→21:38)
[2017-12-15] MEDS: IRON SUCROSE 200 MG/10 ML (VENOFER) VIAL IV SCH (08:25)
[2017-12-15] MEDS: ENOXAPARIN 40 MG/0.4 ML (LOVENOX) SYR SC SCH ×2 (08:25→20:56)
--- NOTE | 2017-12-15 11:16 | Progress Note-Hospitalist ---
Subjective HPI/CC On Admission Date Seen by Provider: Dec 15, 2017 Time Seen by Provider: 11:12 CC: Medical management during inpatient rehabilitation stay for debility HPI: This is a 72-year-old white female clinic patient of Dr. Mccartney who presented to the inpatient rehabilitation facility when she requested help with lower extremity lymphedema and ulcers could no longer make it at home. Adeline at the cancer center arranged this. Dr. Salgado is managing her lower redman the wounds with a and D ointment and Yonny wrappings. Ultrasound was completed yesterday and Dr. Salgado was pleased with the results. 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 Subjective/Events-last exam Patient portion sleep quite as well last night but denies shortness of breath or chest pain. She had some mild tightness morning resolved with a breathing treatment and producing a scant amount of sputum not enough to cough up per her report. Nursing staff reports some low-grade temperature patient denies night sweats chills fever abdominal pain and flank pain dysuria or leg pain. She denies any problems with iron therapy and nurse received 2 doses of 200 mg iron sucrose. Objective Exam Vital Signs Vital Signs Date Time Temp Pulse Resp B/P (MAP) Pulse Ox O2 Delivery O2 Flow Rate FiO2 12/15/17 06:24 92 Room Air 12/15/17 05:52 99.4 116 20 132/97 (109) Capillary Refill : Less Than 3 Seconds General Appearance: No Apparent Distress, Chronically ill, Obese Respiratory: Chest Non Tender, Lungs Clear, Normal Breath Sounds, No Accessory Muscle Use, No Respiratory Distress Cardiovascular: Regular Rate, Rhythm, No Edema, No Gallop, No JVD, No Murmur, Normal Peripheral Pulses Gastrointestinal: Normal Bowel Sounds, No Organomegaly, No Pulsatile Mass, Non Tender, Soft Results/Procedures Lab Patient resulted labs reviewed. Assessment/Plan Assessment and Plan Assess & Plan/Chief Complaint 1. Multifactorial debility complicated by obesity, myelodysplastic anemia in addition to iron deficiency, OA of the knees and lower extremity ulcerations with known venous insufficiency. . 2. Myelodysplastic anemia somewhat responsive to erythropoietin with past iron deficiency anemia as well per this patient's report last dose of IV iron was in March. Iron studies are compatible significant iron deficiency anemia with low transference saturation and low iron level. Ferritin level likely mildly elevated only do to its acute phase reactant properties from inflammation for her chronic venous insufficiency ulcers. Iron sucrose not available so we'll give dextran variety 200 mg every other day 5 doses. Patient's completed 2 doses without difficulty. We'll repeat CBC Saturday. 3. Type II diabetes mellitus with weight loss is been under good control. Patient off pioglitazone due to edema and will continue to hold metformin as blood sugars have been normal. 4. CT angiography lower extremities was not ideal but reasonable revealing no significant obstruction.. Clinical Quality Measures DVT/VTE Risk/Contraindication: Risk Factor Score Per Nursin RFS Level Per Nursing on Admit: 4+=Very High JOHN MCCARTNEY MD Dec 15, 2017 11:16
[2017-12-15] MEDS ORDERED: CATHETER FLUSH 10 ML SYR IV PRN (14:00)
[2017-12-15] MEDS: CATHETER FLUSH 10 ML SYR IV SCH ×2 (14:18→20:56)
[2017-12-15 18:00] VITALS: BP 144/85
--- NOTE | 2017-12-15 18:17 | PM & R (SOAP) Progress Note ---
Subjective This was a face to face visit with the patient. Date Seen by Provider: Dec 15, 2017 Time Seen by Provider: 18:00 Subjective/Events-last exam Patient was seen in her room this evening with RN Patient started on iron sucrose for anemia Patient with lowgrade fever DR Roblero aware and monitoring Patient mod assist for transfers Date Identified: Dec 15, 2017 Time Identified: 18:00 Medication Intervention: iron sucrose ordered for anemia Objective Physician Exam Last Set of Vital Signs Vital Signs Date Time Temp Pulse Resp B/P (MAP) Pulse Ox O2 Delivery O2 Flow Rate FiO2 12/15/17 09:00 Room Air 12/15/17 06:24 92 12/15/17 05:52 99.4 116 20 132/97 (109) Capillary Refill : Less Than 3 Seconds I&O Intake and Output 12/15/17 00:00 Intake Total 2230 ml Balance 2230 ml Intake Oral 1230 ml IV Total 1000 ml # Voids 2 General: Alert, Oriented X3, Cooperative, No Acute Distress HEENT: Atraumatic, PERRLA, EOMI, Mucous Memb Moist/[place] Neck: Supple, No JVD Lungs: Clear to Auscultation Heart: Regular Rate, Normal S1, Normal S2 Abdomen: Normal Bowel Sounds, Soft, No Tenderness, Other (obese) Extremities: Other (Chronic edema with wounds both shins RT >left) Skin: Other (Chronic wounds both legs RT > left) Neuro: Normal Speech, Sensation Intact, Other (Weaknee BLES) Results Lab Data Laboratory Tests 12/13/17 05:15: White Blood Count 6.8, Red Blood Count 2.69L, Hemoglobin 7.9L, Hematocrit 25L, Mean Corpuscular Volume 93, Mean Corpuscular Hemoglobin 29, Mean Corpuscular Hemoglobin Concent 32, Red Cell Distribution Width 16.0H, Platelet Count 318, Mean Platelet Volume 8.4, Prothrombin Time 13.7, INR Comment 1.1, Activated Partial Thromboplast Time 32, Sodium Level 140, Potassium Level 4.8, Chloride Level 114H, Carbon Dioxide Level 19L, Anion Gap 7, Blood Urea Nitrogen 15, Creatinine 0.77, Estimat Glomerular Filtration Rate > 60, BUN/Creatinine Ratio 19, Glucose Level 92, Calcium Level 8.1L, Corrected Calcium 9.2, Total Bilirubin 0.2, Aspartate Amino Transf (AST/SGOT) 28, Alanine Aminotransferase ( ALT/SGPT) 13, Alkaline Phosphatase 110, Total Protein 5.0L, Albumin 2.6L 12/13/17 05:17: Glucometer 90 12/13/17 16:27: Glucometer 113H 12/14/17 06:46: Glucometer 97 12/14/17 16:42: Glucometer 104 12/15/17 05:56: Glucometer 106 12/15/17 16:36: Glucometer 141H Assessment/Plan Assessment and Plan general debil secondary to chronic wounds both legs D Naomi following Chronic anemia placed on Iron sucrose Low grade fever Monitor DR Roblero PCP aware hypotension with HX of HTN richa held Acute exacerbation of Asthma treated DM controlled DVT prophylaxis on lovenox subcut Plan Continue PT/OT/Wound care F/U with PCP and Wound care Next Team Conference 12-18-17 Co-Morbidities that are continuing to impact the rehab process: (include details ) JANNET GOTTI MD Dec 15, 2017 18:17
[2017-12-15] MEDS: MONTELUKAST 10 MG (SINGULAIR) TAB PO SCH (20:56)
[2017-12-15] MEDS: ATORVASTATIN 40 MG (LIPITOR) TABLET PO SCH (20:56)
[2017-12-16] MEDS: CALCIUM CARBONATE 600 MG (CALCARB) TAB PO SCH (06:18)
[2017-12-16] MEDS: FOLIC ACID 1 MG TAB PO SCH (06:19)
[2017-12-16] MEDS: VITAMIN D3 1,000 UNITS (CHOLECALCIFEROL) TABLET PO SCH (06:19)
[2017-12-16] MEDS: CATHETER FLUSH 10 ML SYR IV SCH ×3 (06:19→22:11)
[2017-12-16] MEDS: ASCORBIC ACID (VIT C) 500 MG TABLET PO SCH (06:19)
[2017-12-16] MEDS: CYANOCOBALAMIN 1,000 MCG (VITAMIN B-12) TABLET PO SCH (06:19)
[2017-12-16 06:26] VITALS: BP 132/68
[2017-12-16] MEDS: RT-ALBUTEROL SULF 2.5 MG/3 ML PRE-MIX VIAL INH SCH ×2 (07:02→20:34)
[2017-12-16] MEDS: RT-ADVAIR HFA 115/21 MCG PER PUFF IH SCH ×2 (07:02→20:34)
[2017-12-16] MEDS: ENOXAPARIN 40 MG/0.4 ML (LOVENOX) SYR SC SCH ×2 (08:28→21:20)
--- NOTE | 2017-12-16 08:37 | Cardiology Progress Note ---
Subjective Date Seen by Provider: Dec 16, 2017 Time Seen by Provider: 08:32 Subjective/Events-last exam Patient up with PT. Continue to c/o generalized fatigue. Denies any CP or dyspnea. Patient with low grade fever over the weekend. Objective-Cardiology Exam Last Set of Vital Signs Vital Signs 12/17/17 12/17/17 06:11 06:54 Temp 98.9 Pulse 102 Resp 20 B/P (MAP) 110/68 (82) Pulse Ox 91 O2 Delivery Room Air Capillary Refill : Less Than 3 Seconds I&O Intake and Output 12/17/17 00:00 Intake Total 2070 ml Balance 2070 ml Intake Oral 2060 ml IV Total 10 ml # Voids 5 # Bowel Movements 2 General: Alert, Oriented X3, Cooperative, No Acute Distress HEENT: Atraumatic, PERRLA, EOMI, Mucous Memb Moist/[place] Neck: Supple, No JVD Lungs: Clear to Auscultation Heart: Regular Rate, Normal S1, Normal S2 Abdomen: Normal Bowel Sounds, Soft, No Tenderness, Other (obese) Extremities: Other (Chronic edema with wounds both shins RT >left) Skin: Other (Chronic wounds both legs RT > left) Neuro: Normal Speech, Sensation Intact, Other (Weaknee BLES) A/P-Cardiology Admission Diagnosis Foot ulcer Generalized weakness and debility Chronic venous insufficiency Diabetes mellitus Peripheral arterial disease Assessment/Plan Nonhealing foot ulcers, history of venous stasis ulcers. GEETA was abnormal, ultrasound of the arterial was nondiagnostic, CT showed patent artery with anterior tibial patent down to the foot. The posterior tibial and peroneal arteries were not well visualized. I discussed the management plan with Dr. Salgado and we will try compression therapy for her venous stasis ulcers. Will continue monitoring her status closely Generalized weakness and loss of energy, receiving physical therapy. Improving slowly. Shortness of breath on exertion, receiving physical therapy. Chronic kidney disease, started on IV fluid and monitor renal function. Hypertension, resume Benicar at lower dose and continue to monitor. Hyperlipidemia, monitor lipids. Anemia, myelodysplastic, has been followed by Dr. Troncoso. Morbid obesity, BMI is 44, discussed weight loss and exercise. History of COPD, obstructive sleep apnea using C Pap. Clinical Quality Measures DVT/VTE Risk/Contraindication: Risk Factor Score Per Nursin RFS Level Per Nursing on Admit: 4+=Very High Supervisory-Addendum Brief Supervisory Addendum Participated in pt care: history, MDM, physical Personally performed: exam, history, MDM Care discussed with: KAYLI Results interpretation: agree with documentation Notes: Patient was seen and evaluated with Amberly, agree with the current plan. Ulcer was evaluated and appeared to be healing well. On examination lungs were clear to auscultation bilaterally, heart is regular rate and rhythm I will continue on current medication and continue to monitor. No changes were recommended AMBERLY BRADY Dec 16, 2017 08:36 ARIANA BARROS MD Dec 17, 2017 07:08
--- NOTE | 2017-12-16 10:02 | Physical Therapy Daily Note ---
PT Daily Note-Current Subjective Pt. agrees to Rx. States she still has a cough that bothers her as well as the weakness and dyspnea Pain Numeric Pain Scale: 5-Moderate Pain Location: Right (and left) Location Body Site: Knee Pain Description: Ache Appearance damp clothing, changed before exiting room abut urinated again . Mental Status Patient Orientation: Normal For Age Transfers Functional [place] Measure 0=Not Assessed/NA 4=Minimal Assistance 1=Total Assistance 5=Supervision or Setup 2=Maximal Assistance 6=Modified [place] 3=Moderate Assistance 7=Complete IndependenceIRFPAI Quality Coding Scale 6 Independent with activity with or without an assistive device 5 Patient requires set up or clean up by helper. Patient completes activity by themselves 4 Supervision or touching assist (CGA). [place] provide cues , steadying assist 3 The helper provides less than half the effort to complete the activity 2 The helper provides more than half the effort to complete the activity 1 Dependent. The helper does all the effort to complete an activity 7 Patient refused to complete or attempt activity 9 The patient did not perform the activity before the current illness or injury 88 Not attempted due to Medical conditions or safety concerns Transfers (B, C, W/C) (FIM): 4 (needs some assist from lower surfaces, lift chair sit to stand SBA) Scootin Rollin Supine to/from Sit: 5 Sit to/from Stand: 4 Bed to/from Chair: 4 Weight Bearing Right Lower Extremity: Right Full Weight Bearing Left Lower Extremity: Left Full Weight Bearing Gait Training Does the Patient Walk?: Yes Gait (FIM): 2 Distance (FIM): 0=240-46 ft (80ftx3) Gait Level of Assist: 4 Gait Persons Needed: 1 Gait Assistive Device: FWW heavy weight bearing on FWW, dyspnea, c/o bilat knee pain Exercises Supine Ex: Ankle pumps, Quad Set, Rolling, Glut sets, Heel Slides, Short Arc Quads, Scooting, Straight leg raise (assist), Hip abd/add Supine Reps: 12 Seated Therapy Exercises: Ankle pumps, Sit to stand, Long arc quads, Hip flexion, Hip abd/add Seated Reps: 15 Treatments toileted to change pads and panties , cleaned self, takes much time, needed assist for pants, very tight secondary to edema LEs and hips Assessment Current Status: Fair Progress SOB, pain and much time needed to accomplish tasks PT Short Term Goals Short Term Goals Time Frame: Dec 12, 2017 Transfers (B,C,W/C) (FIM): 4 (met) Gait (FIM): 2 Gait Distance Comment: 100' Gait Level of Assist: 4 Gait Assistive Device: FWW Wheelchair Distance: 60',120' PT Penitentiary Goals Shop Worker Goals PT Penitentiary Goals Time Frame: Dec 26, 2017 Transfers (B,C,W/C) (FIM): 5 Sit to Lying (QC): 4 Lying-Sitting on Side/Bed(QC): 4 Sit to Stand (QC): 4 Rollin Roll Left to Right (QC): 4 Chair/Jrk-uk-Kagqa Xfer(QC): 4 Car Transfer (QC): 4 Does the Patient Walk: Yes Gait (FIM): 5 Distance: 150' Walk 10 feet (QC): 4 Walk 10ft-Uneven Surface(QC): 4 Walk 50ft with 2 Turns (QC): 4 Walk 150 ft (QC): 4 Gait Level of Assist: 5 Gait Assistive Device: FWW Stairs (FIM): 2 # of Steps: 4 1 Step (curb) (QC): 4 4 Steps (QC): 4 12 Steps (QC): 4 Stairs Level Of Assist: 4 PT Plan Treatment/Plan Treatment Plan: Continue Plan of Care Treatment Plan: Bed Mobility, Concurrent Therapy, Education, Functional Activity Yimi, Functional Strength, Group Therapy, Gait, Safety, Therapeutic Exercise, Transfers Treatment Duration: Dec 26, 2017 Frequency: Modified Program (IRF) Estimated Hrs Per Day: 1.5 hours per day Patient and/or Family Agrees t: Yes Safety Risks/Education Patient Education: Gait Training, Transfer Techniques, Correct Positioning, Disease Process, Safety Issues Teaching Recipient: Patient Teaching Methods: Demonstration, Discussion Response to Teaching: Verbalize Understanding, Return Demonstration, Reinforcement Needed Time/GCodes Time In: 800 Time Out: 900 Total Billed Treatment Time: 60 Total Billed Treatment 1,FA25m,GT20m,EX15m G Codes Necessary: WERNER Leiva KENO WRITER Dec 16, 2017 10:02
--- NOTE | 2017-12-16 13:13 | Physical Therapy Daily Note ---
PT Daily Note-Current Subjective Pt. in bed agrees to Rx. States she would like to get panties and pad on . Pain Numeric Pain Scale: 3 Location: Left Location Body Site: Knee (bilst) Pain Description: Pressure Mental Status Patient Orientation: Normal For Age Transfers Functional [place] Measure 0=Not Assessed/NA 4=Minimal Assistance 1=Total Assistance 5=Supervision or Setup 2=Maximal Assistance 6=Modified [place] 3=Moderate Assistance 7=Complete IndependenceIRFPAI Quality Coding Scale 6 Independent with activity with or without an assistive device 5 Patient requires set up or clean up by helper. Patient completes activity by themselves 4 Supervision or touching assist (CGA). [place] provide cues , steadying assist 3 The helper provides less than half the effort to complete the activity 2 The helper provides more than half the effort to complete the activity 1 Dependent. The helper does all the effort to complete an activity 7 Patient refused to complete or attempt activity 9 The patient did not perform the activity before the current illness or injury 88 Not attempted due to Medical conditions or safety concerns in out bed min assist LEs, sit to stand high surface SBA, standard surface min assist. Weight Bearing Right Lower Extremity: Right Full Weight Bearing Left Lower Extremity: Left Full Weight Bearing Gait Training Does the Patient Walk?: Yes Gait Assistive Device: FWW 100ft FWW slow, flexed over FWW heavy wt bearing on FWW, dyspnea Exercises Seated Therapy Exercises: Ankle pumps, Sit to stand, Long arc quads Seated Reps: 10 Assessment Current Status: Fair Progress in bed after rx, ordering meal, adams at hand PT Short Term Goals Short Term Goals Time Frame: Dec 12, 2017 Transfers (B,C,W/C) (FIM): 4 (met) Gait (FIM): 2 Gait Distance Comment: 100' Gait Level of Assist: 4 Gait Assistive Device: FWW Wheelchair Distance: 60',120' PT Penit[facility] Goals Networking Engineer Goals PT Networking Engineer Goals Time Frame: Dec 26, 2017 Transfers (B,C,W/C) (FIM): 5 Sit to Lying (QC): 4 Lying-Sitting on Side/Bed(QC): 4 Sit to Stand (QC): 4 Rollin Roll Left to Right (QC): 4 Chair/Gnt-qf-Cegoz Xfer(QC): 4 Car Transfer (QC): 4 Does the Patient Walk: Yes Gait (FIM): 5 Distance: 150' Walk 10 feet (QC): 4 Walk 10ft-Uneven Surface(QC): 4 Walk 50ft with 2 Turns (QC): 4 Walk 150 ft (QC): 4 Gait Level of Assist: 5 Gait Assistive Device: FWW Stairs (FIM): 2 # of Steps: 4 1 Step (curb) (QC): 4 4 Steps (QC): 4 12 Steps (QC): 4 Stairs Level Of Assist: 4 PT Plan Treatment/Plan Treatment Plan: Continue Plan of Care Treatment Plan: Bed Mobility, Concurrent Therapy, Education, Functional Activity Yimi, Functional Strength, Group Therapy, Gait, Safety, Therapeutic Exercise, Transfers Treatment Duration: Dec 26, 2017 Frequency: Modified Program (IRF) Estimated Hrs Per Day: 1.5 hours per day Patient and/or Family Agrees t: Yes Safety Risks/Education Patient Education: Gait Training, Transfer Techniques, Correct Positioning, Safety Issues Teaching Recipient: Patient Teaching Methods: Demonstration, Discussion Response to Teaching: Verbalize Understanding, Return Demonstration, Reinforcement Needed Time/GCodes Time In: 1240 Time Out: 1315 Total Billed Treatment Time: 35 Total Billed Treatment 1`GT20,FA15 G Codes Necessary: WERNER Leiva HEADER SETUP OPERATOR Dec 16, 2017 13:12
--- NOTE | 2017-12-16 13:43 | Occupational Ther Daily Note ---
OT Current Status-Daily Note Subjective Pt seen in room, up in recliner, agreeable to OT. Reported she had a good weekend and walked on Saturday. No pain mentioned Appearance Alert, cooperative Mental Status/Objective Functional [place] Measure 0=Not Assessed/NA 4=Minimal Assistance 1=Total Assistance 5=Supervision or Setup 2=Maximal Assistance 6=Modified [place] 3=Moderate Assistance 7=Complete [place] ADL-Treatment She was able to get up from recliner with SBA and walked very slowly with SBA, FWW to bathroom. On/off BSC over toilet with SBA, FWW and grab bar. Managed clothing and hygiene with mod I and used dressing stick to take pants off in preparation for shower. Walked to shower and got in with SBA, pt verbalizing steps and she completed them, Shower bench, grab bars. Turned water on/off and retrieved towel mod I. Pt took manju wraps and dressings off lower legs without help. Washed and dried all parts, mod I. Had difficulty getting out of shower. [place] she pulled herself up, she was too close to shower wall and couldn't move feet for transfer. Sit to stand with min assist and pivoted into w/c. Transported to room and got up out of w/c with min assist, the walked to sit EOB , with just a little help for each food. Pt left up in bed getting dressings changed, all needs met. All ADLS took longer than usual Functional [place] Measure 0=Not Assessed/NA 4=Minimal Assistance 1=Total Assistance 5=Supervision or Setup 2=Maximal Assistance 6=Modified [place] 3=Moderate Assistance 7=Complete IndependenceIRFPAI Quality Coding Scale 6 Independent with activity with or without an assistive device 5 Patient requires set up or clean up by helper. Patient completes activity by themselves 4 Supervision or touching assist (CGA). [place] provide cues , steadying assist 3 The helper provides less than half the effort to complete the activity 2 The helper provides more than half the effort to complete the activity 1 Dependent. The helper does all the effort to complete an activity 7 Patient refused to complete or attempt activity 9 The patient did not perform the activity before the current illness or injury 88 Not attempted due to Medical conditions or safety concerns Bathing (FIM): 6 (Washed and dried all parts, shower bench, grab bars,hand held shower. help to wash back) Upper Body (FIM): 5 (Doffed and donned slowly, with setup) Toileting (FIM): 6 (Mod I. BSC over toilet, FWW, grab bar) Toilet/Commode Transfer (FIM): 6 (On/off BSC over toilet) Shower Transfer(FIM): 4 (Min assist) Education OT Patient Education: Modified ADL techniques, Progress toward Goal/Update tx plan, Purpose of tx/functional activities, Safety issues, Transfer techniques Teaching Recipient: Patient Teaching Methods: Demonstration, Discussion Response to Teaching: Verbalize Understanding, Return Demonstration, Reinforcement Needed OT Short Term Goals Short Term Goals Time Frame: Dec 12, 2017 Toileting(FIM): 5 Transfers (B,C,W/C) (FIM): 4 (met) Toilet/Commode Transfer(FIM): 5 Additional Short Term Goals: 1-Demonstrate ADL Tasks, 2-Verbalize Understanding , 3-ImproveStrength/Yimi 1=Demonstrate adherence to instructed precautions during ADL tasks. 2=Patient will verbalize/demonstrate understanding of assistive devices/ modifications for ADL. 3=Patient will improve strength/tolerance for activity to enable patient to perform ADL's. OT Web Search Evaluator Goals Half-Way Goals Time Frame: Dec 26, 2017 Eating (FIM): 7 Eating (QC): 6 Groomin Oral Hygiene (QC): 6 Bathing(FIM): 6 Shower/Bathe Self (QC): 6 Upper Body Dressing(FIM): 6 Upper Body Dressing (QC): 6 Lower Body Dressing(FIM): 6 Lower Body Dressing (QC): 6 On/Off Footwear (QC): 6 Toileting(FIM): 6 Toileting Hygiene (QC): 6 Toilet/Commode Transfer(FIM): 6 Toilet/Commode Transfer (QC): 6 Shower Transfer(FIM): 6 Additional Goals: 1-Demonstrate ADL Tasks, 2-Verbalize Understanding, 3- ImproveStrength/Yimi 1=Demonstrate adherence to instructed precautions during ADL tasks. 2=Patient will verbalize/demonstrate understanding of assistive devices/ modifications for ADL. 3=Patient will improve strength/tolerance for activity to enable patient to perform ADL's. OT Education/Plan Problem List/Assessment Pt would benefit from skilled OT to increase her independence in basic self care to allow her to safely return to her home Discharge Recommendations Plan/Recommendations: Continue POC Treatment Plan/Plan of Care Patient would benefit from OT for education, treatment and training to promote independence in ADL's, mobility, safety and/or upper extremity function for ADL' s. Plan of Care: ADL Retraining, Functional Mobility, Group Exercise/Act as Ind ( education, exercise, functional activity, activity tolerance, functional mobility, socialization), UE Funct Exercise/Act, UE Neuromus Re-Ed/Coord Treatment Duration: Dec 26, 2017 Frequency: At least 5 of 7 days/Wk (IRF) Estimated Hrs Per Day: 1.5 hours per day Agreement: Yes Rehab Potential: Good Time/GCodes Start Time: 10:05 Stop Time: 11:35 Total Time Billed (hr/min): 90 Billed Treatment Time visit, 90 minutes ASHLI VARGAS OT Dec 16, 2017 13:43
[2017-12-16] MEDS: ACETAMINOPHEN 500 MG TAB (TYLENOL) PO PRN (13:48)
[2017-12-16 17:00] VITALS: BP 146/78
[2017-12-16] MEDS: ATORVASTATIN 40 MG (LIPITOR) TABLET PO SCH (21:09)
[2017-12-16] MEDS: MONTELUKAST 10 MG (SINGULAIR) TAB PO SCH (21:09)
--- NOTE | 2017-12-16 21:57 | PM & R (SOAP) Progress Note ---
Subjective This was a face to face visit with the patient. Date Seen by Provider: Dec 16, 2017 Time Seen by Provider: 21:50 Subjective/Events-last exam Patient was seen in her room this evening Patient min assist for transfers Objective Physician Exam Last Set of Vital Signs Vital Signs Date Time Temp Pulse Resp B/P (MAP) Pulse Ox O2 Delivery O2 Flow Rate FiO2 12/16/17 21:00 Room Air 12/16/17 20:34 92 12/16/17 17:00 100.8 120 20 146/78 (100) Capillary Refill : Less Than 3 Seconds I&O Intake and Output 12/16/17 00:00 Intake Total 1450 ml Balance 1450 ml Intake Oral 1440 ml IV Total 10 ml # Voids 6 General: Alert, Oriented X3, Cooperative, No Acute Distress HEENT: Atraumatic, PERRLA, EOMI, Mucous Memb Moist/[place] Neck: Supple, No JVD Lungs: Clear to Auscultation Heart: Regular Rate, Normal S1, Normal S2 Abdomen: Normal Bowel Sounds, Soft, No Tenderness, Other (obese) Extremities: Other (Chronic edema with wounds both shins RT >left) Skin: Other (Chronic wounds both legs RT > left) Neuro: Normal Speech, Sensation Intact, Other (Weaknee BLES) Results Lab Data Laboratory Tests 12/14/17 06:46: Glucometer 97 12/14/17 16:42: Glucometer 104 12/15/17 05:56: Glucometer 106 12/15/17 16:36: Glucometer 141H 12/16/17 05:35: Glucometer 98 12/16/17 17:02: Glucometer 123H Assessment/Plan Assessment and Plan general debil secondary to Chronic wounds both legs DR Salgado following Chronic anemia placed on iron sucrose Low grade fever resolved Hypotension with hx of HTN benicar held improved Acute exacerbation of Asthma treated DM controlled DVT Prophylacis on Lovenox subcut Plan Continue PT/OT/Wound care Dr Salgado to see tomorrow Team Conference 12-18-17 Co-Morbidities that are continuing to impact the rehab process: (include details ) JANNET GOTTI MD Dec 16, 2017 21:57
[2017-12-17 06:11] VITALS: BP 110/68
[2017-12-17] MEDS: CALCIUM CARBONATE 600 MG (CALCARB) TAB PO SCH (06:50)
[2017-12-17] MEDS: ASCORBIC ACID (VIT C) 500 MG TABLET PO SCH (06:50)
[2017-12-17] MEDS: VITAMIN D3 1,000 UNITS (CHOLECALCIFEROL) TABLET PO SCH (06:50)
[2017-12-17] MEDS: FOLIC ACID 1 MG TAB PO SCH (06:50)
[2017-12-17] MEDS: CYANOCOBALAMIN 1,000 MCG (VITAMIN B-12) TABLET PO SCH (06:50)
[2017-12-17] MEDS: CATHETER FLUSH 10 ML SYR IV SCH ×3 (06:51→22:29)
[2017-12-17] MEDS: RT-ALBUTEROL SULF 2.5 MG/3 ML PRE-MIX VIAL INH SCH ×2 (06:54→20:14)
[2017-12-17] MEDS: RT-ADVAIR HFA 115/21 MCG PER PUFF IH SCH ×2 (06:54→20:14)
--- NOTE | 2017-12-17 08:11 | Progress Note-Hospitalist ---
Subjective HPI/CC On Admission Date Seen by Provider: Dec 17, 2017 Time Seen by Provider: 07:30 CC: Medical management during inpatient rehabilitation stay for debility HPI: This is a 72-year-old white female clinic patient of Dr. Mccartney who presented to the inpatient rehabilitation facility when she requested help with lower extremity lymphedema and ulcers could no longer make it at home. Adeline at the cancer center arranged this. Dr. Salgado is managing her lower red[place] the wounds with a and D ointment and Yonny wrappings. Ultrasound was completed yesterday and Dr. Salgado was pleased with the results. 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 Subjective/Events-last exam Patient voices no complaints this morning. Appetite is been good. She has a loose nonproductive cough but denies night sweats chills or fever. Did have a low-grade temperature little yesterday at 100.8. She denies abdominal pain dysuria or increased frequency. She has serous drainage that persists from right lower extremity venous insufficiency related ulcer but denies any associated pain. Per nurse's report there is no surrounding skin erythema and the wound bed looks clean. She is scheduled to have an redressed today. She reports slowly improving stamina for which physical therapy concurs. Objective Exam Vital Signs Vital Signs Date Time Temp Pulse Resp B/P (MAP) Pulse Ox O2 Delivery O2 Flow Rate FiO2 12/17/17 06:54 91 Room Air 12/17/17 06:11 98.9 102 20 110/68 (82) Capillary Refill : Less Than 3 Seconds General Appearance: No Apparent Distress, Chronically ill, Obese Respiratory: Chest Non Tender, Lungs Clear, Normal Breath Sounds, No Accessory Muscle Use, No Respiratory Distress Cardiovascular: Regular Rate, Rhythm, No Edema, No Gallop, No JVD, No Murmur, Normal Peripheral Pulses, Tachycardia Gastrointestinal: Normal Bowel Sounds, No Organomegaly, No Pulsatile Mass, Non Tender, Soft Extremity: Other (1-2+ pedal edema stable feet are warm serous drainage noted on bedding legs wrapped ankles to knees with no more than trace edema likely.) Results/Procedures Lab Patient resulted labs reviewed. Assessment/Plan Assessment and Plan Assess & Plan/Chief Complaint 1. Multifactorial debility complicated by obesity, myelodysplastic anemia in addition to iron deficiency, OA of the knees and lower extremity ulcerations with known venous insufficiency. . 2. Myelodysplastic anemia somewhat responsive to erythropoietin with past iron deficiency anemia as well per this patient's report last dose of IV iron was in March. Iron studies are compatible significant iron deficiency anemia with low transference saturation and low iron level. Ferritin level likely mildly elevated only do to its acute phase reactant properties from inflammation for her chronic venous insufficiency ulcers. Iron sucrose not available so we'll give dextran variety 200 mg every other day 5 doses. Patient's completed 2 doses without difficulty. We'll repeat CBC today.. 3. Type II diabetes mellitus with weight loss is been under good control. Patient off pioglitazone due to edema and will continue to hold metformin as blood sugars have been normal. 4. CT angiography lower extremities was not ideal but reasonable revealing no significant obstruction.. 5. Mild bronchitis likely viral in etiology most likely cause of low-grade temperature continue to monitor continue bronchodilator therapy. Clinical Quality Measures DVT/VTE Risk/Contraindication: Risk Factor Score Per Nursin RFS Level Per Nursing on Admit: 4+=Very High JOHN MCCARTNEY MD Dec 17, 2017 08:11
--- NOTE | 2017-12-17 08:15 | Cardiology Progress Note ---
Subjective Date Seen by Provider: Dec 17, 2017 Time Seen by Provider: 08:12 Subjective/Events-last exam Patient is in bed, complains of occasional productive cough. Denies any CP or increased dyspnea. Review of Systems General: No Night Sweats; Fatigue, Malaise HEENT: No Visual Changes, No Dysphasia Pulmonary: No Dyspnea; Cough; No Pleuritic Chest Pain Cardiovascular: Edema; No: Chest Pain, Palpitations, Paroxysmal Noc. Dyspnea Gastrointestinal: No: Nausea, Vomiting, Abdominal Pain Genitourinary: No Dysuria, No Frequency Musculoskeletal: No: neck pain, back pain Neurological: No: Weakness, Numbness, Change in speech, Confusion Objective-Cardiology Exam Last Set of Vital Signs Vital Signs 12/17/17 12/17/17 06:11 06:54 Temp 98.9 Pulse 102 Resp 20 B/P (MAP) 110/68 (82) Pulse Ox 91 O2 Delivery Room Air Capillary Refill : Less Than 3 Seconds I&O Intake and Output 12/17/17 00:00 Intake Total 2070 ml Balance 2070 ml Intake Oral 2060 ml IV Total 10 ml # Voids 5 # Bowel Movements 2 General: Alert, Oriented X3, Cooperative, No Acute Distress HEENT: Atraumatic, PERRLA, EOMI, Mucous Memb Moist/[place] Neck: Supple, No JVD Lungs: Clear to Auscultation Heart: Regular Rate, Normal S1, Normal S2 Abdomen: Normal Bowel Sounds, Soft, No Tenderness, Other (obese) Extremities: Other (Chronic edema with wounds both shins RT >left) Skin: Other (Chronic wounds both legs RT > left) Neuro: Normal Speech, Sensation Intact, Other (Weaknee BLES) A/P-Cardiology Admission Diagnosis Foot ulcer Generalized weakness and debility Chronic venous insufficiency Diabetes mellitus Peripheral arterial disease Assessment/Plan Nonhealing foot ulcers, history of venous stasis ulcers. GEETA was abnormal, ultrasound of the arterial was nondiagnostic, CT showed patent artery with anterior tibial patent down to the foot. The posterior tibial and peroneal arteries were not well visualized. I discussed the management plan with Dr. Salgado and we will try compression therapy for her venous stasis ulcers. Will continue monitoring her status closely Generalized weakness and loss of energy, receiving physical therapy. Improving slowly. Low grade fever- continue to monitor. Shortness of breath on exertion, receiving physical therapy. Chronic kidney disease, started on IV fluid and monitor renal function. Hypertension, continue to monitor. Hyperlipidemia, monitor lipids. Anemia, myelodysplastic, has been followed by Dr. Troncoso. Morbid obesity, BMI is 44, discussed weight loss and exercise. History of COPD, obstructive sleep apnea using C Pap. Clinical Quality Measures DVT/VTE Risk/Contraindication: Risk Factor Score Per Nursin RFS Level Per Nursing on Admit: 4+=Very High ALLEN BRADY Dec 17, 2017 08:14
[2017-12-17] MEDS: IRON SUCROSE 200 MG/10 ML (VENOFER) VIAL IV SCH (09:05)
[2017-12-17] MEDS: ENOXAPARIN 40 MG/0.4 ML (LOVENOX) SYR SC SCH (09:06)
[2017-12-17 09:28] LABS: BASOPHILS % (AUTO) 0 % (0-10); EOSINOPHILS # (AUTO) 0.2 10^3/uL (0.0-0.3); EOSINOPHILS % (AUTO) 2 % (0-10); HEMATOCRIT 27 % (35-52); HEMOGLOBIN 8.4 G/DL (11.5-16.0); LYMPHOCYTES # (AUTO) 0.9 X 10^3 (1.0-4.0); LYMPHOCYTES % (AUTO) 10 % (12-44); MEAN CORPUSCULAR HEMOGLOBIN 29 PG (25-34); MEAN CORPUSCULAR HGB CONC 31 G/DL (32-36); MEAN CORPUSCULAR VOLUME 93 FL (80-99); MEAN PLATELET VOLUME 8.3 FL (7.4-10.4); MONOCYTES # (AUTO) 0.8 X 10^3 (0.0-1.0); MONOCYTES % (AUTO) 9 % (0-12); NEUTROPHILS % (AUTO) 79 % (42-75); PLATELET COUNT 365 10^3/uL (130-400); RED BLOOD COUNT 2.88 10^6/uL (4.35-5.85); RED CELL DISTRIBUTION WIDTH 15.9 % (10.0-14.5); WHITE BLOOD COUNT 8.8 10^3/uL (4.3-11.0)
--- NOTE | 2017-12-17 11:42 | PM & R (SOAP) Progress Note ---
Subjective This was a face to face visit with the patient. Date Seen by Provider: Dec 17, 2017 Time Seen by Provider: 11:30 Subjective/Events-last exam Patient was seen in her room this AM Wound rt leg viewed Patient reports improving.Patient min assist for transfers. Objective Physician Exam Last Set of Vital Signs Vital Signs Date Time Temp Pulse Resp B/P (MAP) Pulse Ox O2 Delivery O2 Flow Rate FiO2 12/17/17 09:00 Room Air 12/17/17 06:54 91 12/17/17 06:11 98.9 102 20 110/68 (82) Capillary Refill : Less Than 3 Seconds I&O Intake and Output 12/17/17 00:00 Intake Total 2070 ml Balance 2070 ml Intake Oral 2060 ml IV Total 10 ml # Voids 5 # Bowel Movements 2 General: Alert, Oriented X3, Cooperative, No Acute Distress HEENT: Atraumatic, PERRLA, EOMI, Mucous Memb Moist/[place] Neck: Supple, No JVD Lungs: Clear to Auscultation Heart: Regular Rate, Normal S1, Normal S2 Abdomen: Normal Bowel Sounds, Soft, No Tenderness, Other (obese) Extremities: Other (Chronic edema with wounds both shins RT >left) Skin: Other (Chronic wounds both legs RT > left) Neuro: Normal Speech, Sensation Intact, Other (Weaknee BLES) Results Lab Data Laboratory Tests 12/14/17 16:42: Glucometer 104 12/15/17 05:56: Glucometer 106 12/15/17 16:36: Glucometer 141H 12/16/17 05:35: Glucometer 98 12/16/17 17:02: Glucometer 123H 12/17/17 06:18: Glucometer 112H 12/17/17 09:19: White Blood Count 8.8, Red Blood Count 2.88L, Hemoglobin 8.4L, Hematocrit 27L, Mean Corpuscular Volume 93, Mean Corpuscular Hemoglobin 29, Mean Corpuscular Hemoglobin Concent 31L, Red Cell Distribution Width 15.9H, Platelet Count 365, Mean Platelet Volume 8.3, Neutrophils (%) (Auto) 79H, Lymphocytes (%) (Auto) 10L , Monocytes (%) (Auto) 9, Eosinophils (%) (Auto) 2, Basophils (%) (Auto) 0, Neutrophils # (Auto) 7.0, Lymphocytes # (Auto) 0.9L, Monocytes # (Auto) 0.8, Eosinophils # (Auto) 0.2, Basophils # (Auto) 0.0 Assessment/Plan Assessment and Plan General debil secondary to Chronic wounds both legs DR Salgado following Chronic anemia placed on iron sucrose Low grade fever Hypotension with hx of hypertension benicar held improved Acute exacerbation of asthma treated DM controlled DVT Prophylaxis on Lovenox subcut Plan Continue Pt/OT/wound care Team Conference tomorrow F/U with DR Salgado Co-Morbidities that are continuing to impact the rehab process: (include details ) JANNET GOTTI MD Dec 17, 2017 11:42
--- NOTE | 2017-12-17 11:57 | Physical Therapy Daily Note ---
PT Daily Note-Current Subjective Pt sitting in recliner with feet up upon arrival. Pt agrees to PT. Pt is very talkative and at times needs reminders to stay on task. Pain Numeric Pain Scale: 4 Location: Right, Left Location Body Site: Knee Pain Description: Ache, Tightness Mental Status Patient Orientation: Person, Place, Time, Situation Transfers Functional [place] Measure 0=Not Assessed/NA 4=Minimal Assistance 1=Total Assistance 5=Supervision or Setup 2=Maximal Assistance 6=Modified [place] 3=Moderate Assistance 7=Complete IndependenceIRFPAI Quality Coding Scale 6 Independent with activity with or without an assistive device 5 Patient requires set up or clean up by helper. Patient completes activity by themselves 4 Supervision or touching assist (CGA). [place] provide cues , steadying assist 3 The helper provides less than half the effort to complete the activity 2 The helper provides more than half the effort to complete the activity 1 Dependent. The helper does all the effort to complete an activity 7 Patient refused to complete or attempt activity 9 The patient did not perform the activity before the current illness or injury 88 Not attempted due to Medical conditions or safety concerns Scootin Supine to/from Sit: 4 Sit to/from Stand: 4 Sit to Lying (QC): 4 Sit to Stand (QC): 4 Chair/Spk-hs-[place] Xfer(QC): 4 Bed to/from Chair: 4 Weight Bearing Right Lower Extremity: Right Full Weight Bearing Left Lower Extremity: Left Full Weight Bearing Gait Training Does the Patient Walk?: Yes Distance (FIM): 1=up to 49 ft Distance: 5' Gait Level of Assist: 5 Gait Persons Needed: 1 Gait Assistive Device: FWW Pt walks at close SBA with SOLAR THERMAL TECHNICIAN due to fatigue & weakness. Exercises Supine Ex: Ankle pumps, Quad Set, Glut sets, Heel Slides, Straight leg raise Supine Reps: 20 Treatments Pt wants to visit over questions (anxiety) over possible upcoming discharge after Weekly Mtg tomorrow. Pt was advising what pt's son has adjusted w/in house for discharge. Pt has question over how medical would affect discharge date & not wanting to discharge too early. SOLAR THERMAL TECHNICIAN & pt discuss medical changes, medications & progress in Therapy as well as equipment. SOLAR THERMAL TECHNICIAN advises this information goes to Weekly Mtg tomorrow and not to worry, see what happens at meeting first then we can prepare for it. Pt transfers from recliner to standing then walks to EOB for Dr Salgado to view BLE wounds. While awaiting wound dressings that are needed, pt completes Supine Ex in bed. Dr Trimble checks on pt and Nurse to arrive shortly to apply wound dressing to RLE that is still needed. Assessment Current Status: Good Progress Pt continues to remain talkative and anxious, needing reminders to stay on task. Pt still struggles with weakness due to BLE wounds. PT Short Term Goals Short Term Goals Time Frame: Dec 12, 2017 Transfers (B,C,W/C) (FIM): 4 (met) Gait (FIM): 2 Gait Distance Comment: 100' Gait Level of Assist: 4 Gait Assistive Device: FWW Wheelchair Distance: 60',120' PT Alarm Adjuster Goals Mcc Goals PT Alarm Adjuster Goals Time Frame: Dec 26, 2017 Transfers (B,C,W/C) (FIM): 5 Sit to Lying (QC): 4 Lying-Sitting on Side/Bed(QC): 4 Sit to Stand (QC): 4 Rollin Roll Left to Right (QC): 4 Chair/Ukh-fy-Lvkdg Xfer(QC): 4 Car Transfer (QC): 4 Does the Patient Walk: Yes Gait (FIM): 5 Distance: 150' Walk 10 feet (QC): 4 Walk 10ft-Uneven Surface(QC): 4 Walk 50ft with 2 Turns (QC): 4 Walk 150 ft (QC): 4 Gait Level of Assist: 5 Gait Assistive Device: FWW Stairs (FIM): 2 # of Steps: 4 1 Step (curb) (QC): 4 4 Steps (QC): 4 12 Steps (QC): 4 Stairs Level Of Assist: 4 PT Plan Problem List Problem List: Activity Tolerance, Functional Strength, Safety, Balance, Gait, Transfer Treatment/Plan Treatment Plan: Continue Plan of Care Treatment Plan: Bed Mobility, Concurrent Therapy, Education, Functional Activity Yimi, Functional Strength, Group Therapy, Gait, Safety, Therapeutic Exercise, Transfers Treatment Duration: Dec 26, 2017 Frequency: Modified Program (IRF) Estimated Hrs Per Day: 1.5 hours per day Patient and/or Family Agrees t: Yes Safety Risks/Education Patient Education: Gait Training, Transfer Techniques, Correct Positioning, Safety Issues Teaching Recipient: Patient Teaching Methods: Discussion Response to Teaching: Verbalize Understanding Time/GCodes Time In: 1000 Time Out: 1130 Total Billed Treatment Time: 90 Total Billed Treatment 1, EX x2 (30m) & FA x4 (60m) G Codes Necessary: RENNY Small SOLAR THERMAL TECHNICIAN Dec 17, 2017 11:57
--- NOTE | 2017-12-17 12:42 | Occupational Ther Daily Note ---
OT Current Status-Daily Note Subjective Pt in bed, agrees to treatment. Pt reports 6/10 pain in knee, requests medication. RN was notified and provided pain medication. Mental Status/Objective Functional [place] Measure 0=Not Assessed/NA 4=Minimal Assistance 1=Total Assistance 5=Supervision or Setup 2=Maximal Assistance 6=Modified [place] 3=Moderate Assistance 7=Complete [place] ADL-Treatment Pt supine to sit with minimal assistance for trunk. Pt declined shower today, but would like to get cleaned up and change clothes. Sit to stand with supervision. Gait to restroom with FWW, slow pace. Transfer to [facility] over toilet with supervision. Pt able to pull pants down and doff without assistance. Pt required minimal assistance for thorough toileting hygiene after BM. Pt completed partial sponge bath with set up while seated on toilet. Pt requests minimal assistance to don pullover shirt secondary to concerns about placement of IV in left hand. Pt used dressing stick to start underwear and pants over feet. Stood with SBA for balance during pant hike. Minimal assistance required to pull up over hips. Pt donned slip on shoes with set up. Grooming tasks completed standing at sink. Pt washed hands, brushed teeth and combed hair with SBA. Increased time required for ADL tasks. Pt transferred to recliner chair with supervision. Functional [place] Measure 0=Not Assessed/NA 4=Minimal Assistance 1=Total Assistance 5=Supervision or Setup 2=Maximal Assistance 6=Modified [place] 3=Moderate Assistance 7=Complete IndependenceIRFPAI Quality Coding Scale 6 Independent with activity with or without an assistive device 5 Patient requires set up or clean up by helper. Patient completes activity by themselves 4 Supervision or touching assist (CGA). [place] provide cues , steadying assist 3 The helper provides less than half the effort to complete the activity 2 The helper provides more than half the effort to complete the activity 1 Dependent. The helper does all the effort to complete an activity 7 Patient refused to complete or attempt activity 9 The patient did not perform the activity before the current illness or injury 88 Not attempted due to Medical conditions or safety concerns Grooming (FIM): 5 Upper Body (FIM): 4 Lower Body Dressing (FIM): 4 Toileting (FIM): 3 Toilet/Commode Transfer (FIM): 5 Other Treatment Pt completed bilateral UE exercises to increase strength needed for ADLs and transfers. Pt completed five exercises x20 reps with mild resistance (yellow) theraband. Cues required for proper exercise technique. Rest breaks taken between exercises. Pt sitting in chair with needs met after session. OT Short Term Goals Short Term Goals Time Frame: Dec 12, 2017 Toileting(FIM): 5 Transfers (B,C,W/C) (FIM): 4 (met) Toilet/Commode Transfer(FIM): 5 Additional Short Term Goals: 1-Demonstrate ADL Tasks, 2-Verbalize Understanding , 3-ImproveStrength/[place] 1=Demonstrate adherence to instructed precautions during ADL tasks. 2=Patient will verbalize/demonstrate understanding of assistive devices/ modifications for ADL. 3=Patient will improve strength/tolerance for activity to enable patient to perform ADL's. OT Snf Goals [place] Goals Time Frame: Dec 26, 2017 Eating (FIM): 7 Eating (QC): 6 Groomin Oral Hygiene (QC): 6 Bathing(FIM): 6 Shower/Bathe Self (QC): 6 Upper Body Dressing(FIM): 6 Upper Body Dressing (QC): 6 Lower Body Dressing(FIM): 6 Lower Body Dressing (QC): 6 On/Off Footwear (QC): 6 Toileting(FIM): 6 Toileting Hygiene (QC): 6 Toilet/Commode Transfer(FIM): 6 Toilet/Commode Transfer (QC): 6 Shower Transfer(FIM): 6 Additional Goals: 1-Demonstrate ADL Tasks, 2-Verbalize Understanding, 3- ImproveStrength/Yimi 1=Demonstrate adherence to instructed precautions during ADL tasks. 2=Patient will verbalize/demonstrate understanding of assistive devices/ modifications for ADL. 3=Patient will improve strength/tolerance for activity to enable patient to perform ADL's. OT Education/Plan Problem List/Assessment Pt would benefit from skilled OT to increase her independence in basic self care to allow her to safely return to her home Discharge Recommendations Plan/Recommendations: Continue POC Treatment Plan/Plan of Care Patient would benefit from OT for education, treatment and training to promote independence in ADL's, mobility, safety and/or upper extremity function for ADL' s. Plan of Care: ADL Retraining, Functional Mobility, Group Exercise/Act as Ind ( education, exercise, functional activity, activity tolerance, functional mobility, socialization), UE Funct Exercise/Act, UE Neuromus Re-Ed/Coord Treatment Duration: Dec 26, 2017 Frequency: At least 5 of 7 days/Wk (IRF) Estimated Hrs Per Day: 1.5 hours per day Agreement: Yes Rehab Potential: Good Time/GCodes Start Time: 08:00 Stop Time: 09:30 Total Time Billed (hr/min): 90 Billed Treatment Time 1 visit, ADLx4(65minutes), ADLx2(25minutes) DANNY THOMAS OT Dec 17, 2017 12:42
--- NOTE | 2017-12-17 16:15 | Cardiology Progress Note ---
Subjective Date Seen by Provider: Dec 17, 2017 Time Seen by Provider: 16:14 Subjective/Events-last exam Patient is laying down in bed, denied any chest pain, complaint of fatigue and loss of energy in addition to some dyspnea on exertion Review of Systems General: No Chills, No Night Sweats; Fatigue, Malaise; No Appetite, No Other HEENT: No Head Aches, No Visual Changes, No Eye Pain, No Ear Pain, No Dysphasia , No Sinus Congestion, No Post Nasal Drip, No Sore Throat, No Other Pulmonary: Dyspnea; No Cough, No Pleuritic Chest Pain, No Other Cardiovascular: Edema; No: Chest Pain, Palpitations, Orthopnea, Paroxysmal Noc. Dyspnea, Lt Headedness, Other Objective-Cardiology Exam Last Set of Vital Signs Vital Signs 12/17/17 12/17/17 12/17/17 06:11 06:54 09:00 Temp 98.9 Pulse 102 Resp 20 B/P (MAP) 110/68 (82) Pulse Ox 91 O2 Delivery Room Air Capillary Refill : Less Than 3 Seconds I&O Intake and Output 12/17/17 00:00 Intake Total 2070 ml Balance 2070 ml Intake Oral 2060 ml IV Total 10 ml # Voids 5 # Bowel Movements 2 General: Alert, Oriented X3, Cooperative, No Acute Distress HEENT: Atraumatic, PERRLA, EOMI, Mucous Memb Moist/[place] Neck: Supple, No JVD Lungs: Clear to Auscultation Heart: Regular Rate, Normal S1, Normal S2 Abdomen: Normal Bowel Sounds, Soft, No Tenderness, Other (obese) Extremities: Other (Chronic edema with wounds both shins RT >left) Skin: Other (Chronic wounds both legs RT > left) Neuro: Normal Speech, Sensation Intact, Other (Weaknee BLES) Results Lab Laboratory Tests 12/17/17 09:19 A/P-Cardiology Admission Diagnosis Foot ulcer Generalized weakness and debility Chronic venous insufficiency Diabetes mellitus Peripheral arterial disease Assessment/Plan Nonhealing foot ulcers, history of venous stasis ulcers. GEETA was abnormal, ultrasound of the arterial was nondiagnostic, CT showed patent artery with anterior tibial patent down to the foot. The posterior tibial and peroneal arteries were not well visualized. I discussed the management plan with Dr. Salgado and we will try compression therapy for her venous stasis ulcers. Will continue monitoring her status closely Generalized weakness and loss of energy, receiving physical therapy. Improving slowly. Low grade fever- continue to monitor, managed by primary care physician Shortness of breath on exertion, receiving physical therapy. Chronic kidney disease, started on IV fluid and monitor renal function. Hypertension, continue to monitor. Hyperlipidemia, monitor lipids. Anemia, myelodysplastic, has been followed by Dr. Troncoso. Morbid obesity, BMI is 44, discussed weight loss and exercise. History of COPD, obstructive sleep apnea using C Pap. Clinical Quality Measures DVT/VTE Risk/Contraindication: Risk Factor Score Per Nursin RFS Level Per Nursing on Admit: 4+=Very High ARIANA BARROS MD Dec 17, 2017 16:15
--- NOTE | 2017-12-17 16:42 | Wound Care Assessment ---
Wound Care Assessment Date Seen by Provider: Dec 17, 2017 Time Seen by Provider: 10:45 Chief Complaint R calf ulcer. HPI The patient is a 72 year old female with severe and long-standing venous insufficiency and deep R calf ulcers x 2. These are stable with current dressings. There is a lot of drainage; too much to put patient in a Profore. Encouraged patient to elevate as much as possible. Past Medical History: Admits Diabetes Type II, Admits Heart Disease, Admits Peripheral Artery Disease Smoking Status: Never a Smoker Recreational Drug Use: No Alcohol Use: Denies Use Review of Systems Pulmonary: Dyspnea, Cough Cardiovascular: No: Chest Pain Musculoskeletal: leg pain Exam Vital Signs Date Time Temp Pulse Resp B/P (MAP) Pulse Ox O2 Delivery O2 Flow Rate FiO2 12/17/17 09:00 Room Air 12/17/17 06:54 91 12/17/17 06:11 98.9 102 20 110/68 (82) Capillary Refill : Less Than 3 Seconds General Appearance: mild distress Respiratory: no respiratory distress Skin: diaphoresis, other (Full thickness ulceration of medial and lateral R calf, slightly less inflamed.) Results Laboratory Tests 12/16/17 17:02: Glucometer 123H 12/17/17 06:18: Glucometer 112H 12/17/17 09:19: White Blood Count 8.8, Red Blood Count 2.88L, Hemoglobin 8.4L, Hematocrit 27L, Mean Corpuscular Volume 93, Mean Corpuscular Hemoglobin 29, Mean Corpuscular Hemoglobin Concent 31L, Red Cell Distribution Width 15.9H, Platelet Count 365, Mean Platelet Volume 8.3, Neutrophils (%) (Auto) 79H, Lymphocytes (%) (Auto) 10L , Monocytes (%) (Auto) 9, Eosinophils (%) (Auto) 2, Basophils (%) (Auto) 0, Neutrophils # (Auto) 7.0, Lymphocytes # (Auto) 0.9L, Monocytes # (Auto) 0.8, Eosinophils # (Auto) 0.2, Basophils # (Auto) 0.0 Assessment/Plan/Dx 1. Venous insufficiency ulcers R calf x 2, slightly better. 2. Diabetes mellitus, with poor control. 3. Morbid obesity. Plan: Continue xeroform/Kerlix/Yonny dressings daily. OLIVER COBOS MD Dec 17, 2017 16:42
[2017-12-17 18:00] VITALS: BP 124/59
[2017-12-17] MEDS: MONTELUKAST 10 MG (SINGULAIR) TAB PO SCH (20:43)
[2017-12-17] MEDS: ATORVASTATIN 40 MG (LIPITOR) TABLET PO SCH (20:44)
[2017-12-18 05:52] VITALS: BP 112/67
[2017-12-18] MEDS: FOLIC ACID 1 MG TAB PO SCH (06:52)
[2017-12-18] MEDS: CATHETER FLUSH 10 ML SYR IV SCH ×3 (06:52→21:23)
[2017-12-18] MEDS: CALCIUM CARBONATE 600 MG (CALCARB) TAB PO SCH (06:52)
[2017-12-18] MEDS: CYANOCOBALAMIN 1,000 MCG (VITAMIN B-12) TABLET PO SCH (06:52)
[2017-12-18] MEDS: ASCORBIC ACID (VIT C) 500 MG TABLET PO SCH (06:52)
[2017-12-18] MEDS: VITAMIN D3 1,000 UNITS (CHOLECALCIFEROL) TABLET PO SCH (06:53)
--- NOTE | 2017-12-18 08:04 | PM & R (SOAP) Progress Note ---
Subjective This was a face to face visit with the patient. Date Seen by Provider: Dec 18, 2017 Time Seen by Provider: 07:50 Subjective/Events-last exam Patient was seen in her room this AM Patient Min assist for transfers. Objective Physician Exam Last Set of Vital Signs Vital Signs Date Time Temp Pulse Resp B/P (MAP) Pulse Ox O2 Delivery O2 Flow Rate FiO2 12/18/17 05:52 98.4 104 22 112/67 (82) 92 NIV CPAP Capillary Refill : Less Than 3 Seconds I&O Intake and Output 12/18/17 00:00 Intake Total 1450 ml Balance 1450 ml Intake Oral 1450 ml # Voids 6 # Urine Diapers 2 # Bowel Movements 1 General: Alert, Oriented X3, Cooperative, No Acute Distress HEENT: Atraumatic, PERRLA, EOMI, Mucous Memb Moist/[place] Neck: Supple, No JVD Lungs: Clear to Auscultation Heart: Regular Rate, Normal S1, Normal S2 Abdomen: Normal Bowel Sounds, Soft, No Tenderness, Other (obese) Extremities: Other (Chronic edema with wounds both shins RT >left) Skin: Other (Chronic wounds both legs RT > left) Neuro: Normal Speech, Sensation Intact, Other (Weaknee BLES) Results Lab Data Laboratory Tests 12/15/17 16:36: Glucometer 141H 12/16/17 05:35: Glucometer 98 12/16/17 17:02: Glucometer 123H 12/17/17 06:18: Glucometer 112H 12/17/17 09:19: White Blood Count 8.8, Red Blood Count 2.88L, Hemoglobin 8.4L, Hematocrit 27L, Mean Corpuscular Volume 93, Mean Corpuscular Hemoglobin 29, Mean Corpuscular Hemoglobin Concent 31L, Red Cell Distribution Width 15.9H, Platelet Count 365, Mean Platelet Volume 8.3, Neutrophils (%) (Auto) 79H, Lymphocytes (%) (Auto) 10L , Monocytes (%) (Auto) 9, Eosinophils (%) (Auto) 2, Basophils (%) (Auto) 0, Neutrophils # (Auto) 7.0, Lymphocytes # (Auto) 0.9L, Monocytes # (Auto) 0.8, Eosinophils # (Auto) 0.2, Basophils # (Auto) 0.0 12/17/17 17:38: Glucometer 119H 12/18/17 05:54: Glucometer 89 Assessment/Plan Assessment and Plan General debil secondary to Chronic wounds both legs DR Salgado following Chronic anemia placed on iron sucrose Low grade fever resolved Hypotension with hx of HTN benicar held Acute exacerbation of asthma treated DM controlled DVT prophylaxis Lovenox held due to anemia and BRB per rectum Plan Continue Pt/OT/Wound care Team Conference later today-see report for full functional update and POC and ELOS Co-Morbidities that are continuing to impact the rehab process: (include details ) JANNET GOTTI MD Dec 18, 2017 08:04
[2017-12-18] MEDS: RT-ALBUTEROL SULF 2.5 MG/3 ML PRE-MIX VIAL INH SCH ×2 (08:58→19:44)
[2017-12-18] MEDS: RT-ADVAIR HFA 115/21 MCG PER PUFF IH SCH ×3 (08:58→21:35)
--- NOTE | 2017-12-18 09:00 | Cardiology Progress Note ---
Subjective Date Seen by Provider: Dec 18, 2017 Time Seen by Provider: 08:57 Subjective/Events-last exam Patient at bedside, no new complaints, denies any CP or increased dyspnea. Review of Systems General: No Night Sweats, No Fatigue, No Malaise HEENT: No Visual Changes, No Dysphasia, No Sore Throat Pulmonary: Dyspnea, Cough; No Pleuritic Chest Pain Cardiovascular: Edema; No: Chest Pain, Palpitations, Paroxysmal Noc. Dyspnea Gastrointestinal: No: Nausea, Vomiting, Abdominal Pain Genitourinary: No Dysuria, No Frequency Musculoskeletal: No: neck pain, back pain Neurological: No: Weakness, Numbness, Change in speech, Confusion Objective-Cardiology Exam Last Set of Vital Signs Vital Signs 12/18/17 05:52 Temp 98.4 Pulse 104 Resp 22 B/P (MAP) 112/67 (82) Pulse Ox 92 O2 Delivery NIV CPAP Capillary Refill : Less Than 3 Seconds I&O Intake and Output 12/18/17 00:00 Intake Total 1450 ml Balance 1450 ml Intake Oral 1450 ml # Voids 6 # Urine Diapers 2 # Bowel Movements 1 General: Alert, Oriented X3, Cooperative, No Acute Distress HEENT: Atraumatic, PERRLA, EOMI, Mucous Memb Moist/[place] Neck: Supple, No JVD Lungs: Clear to Auscultation Heart: Regular Rate, Normal S1, Normal S2 Abdomen: Normal Bowel Sounds, Soft, No Tenderness, Other (obese) Extremities: Other (Chronic edema with wounds both shins RT >left) Skin: Other (Chronic wounds both legs RT > left) Neuro: Normal Speech, Sensation Intact, Other (Weaknee BLES) Results Lab Laboratory Tests 12/17/17 09:19 A/P-Cardiology Admission Diagnosis Foot ulcer Generalized weakness and debility Chronic venous insufficiency Diabetes mellitus Peripheral arterial disease Assessment/Plan Nonhealing foot ulcers, history of venous stasis ulcers. GEETA was abnormal, ultrasound of the arterial was nondiagnostic, CT showed patent artery with anterior tibial patent down to the foot. The posterior tibial and peroneal arteries were not well visualized. I discussed the management plan with Dr. Salgado and we will try compression therapy for her venous stasis ulcers. Will continue monitoring her status closely Generalized weakness and loss of energy, receiving physical therapy. Improving slowly. Low grade fever- resolved, managed by primary care physician Shortness of breath on exertion, receiving physical therapy. Chronic kidney disease, started on IV fluid and monitor renal function. Hypertension, continue to monitor. Hyperlipidemia, monitor lipids. Anemia, myelodysplastic, has been followed by Dr. Troncoso. Morbid obesity, BMI is 44, discussed weight loss and exercise. History of COPD, obstructive sleep apnea using C Pap. Clinical Quality Measures DVT/VTE Risk/Contraindication: Risk Factor Score Per Nursin RFS Level Per Nursing on Admit: 4+=Very High ALLEN BRADY Dec 18, 2017 08:59
--- NOTE | 2017-12-18 09:59 | Physical Therapy Daily Note ---
PT Daily Note-Current Subjective Pt laying Supine in bed upon arrival. Pt agrees to PT. Pt has Dr Whittington & RT see pt during tx. Pt demonstrates more congestion today. O2 is watched during tx. BP starts at 125/58 at EOB at beginning of tx. Pain Numeric Pain Scale: 4 Location: Right, Left Location Body Site: Calf Pain Description: Ache, Tightness Comment: Pt's thighs & calves continue to ache due to swelling and wounds. Mental Status Patient Orientation: Person, Place, Time, Situation Transfers Functional [place] Measure 0=Not Assessed/NA 4=Minimal Assistance 1=Total Assistance 5=Supervision or Setup 2=Maximal Assistance 6=Modified [place] 3=Moderate Assistance 7=Complete IndependenceIRFPAI Quality Coding Scale 6 Independent with activity with or without an assistive device 5 Patient requires set up or clean up by helper. Patient completes activity by themselves 4 Supervision or touching assist (CGA). [place] provide cues , steadying assist 3 The helper provides less than half the effort to complete the activity 2 The helper provides more than half the effort to complete the activity 1 Dependent. The helper does all the effort to complete an activity 7 Patient refused to complete or attempt activity 9 The patient did not perform the activity before the current illness or injury 88 Not attempted due to Medical conditions or safety concerns Scootin Rollin Supine to/from Sit: 5 Sit to/from Stand: 4 Sit to Stand (QC): 4 Weight Bearing Right Lower Extremity: Right Full Weight Bearing Left Lower Extremity: Left Full Weight Bearing Gait Training Does the Patient Walk?: Yes Distance (FIM): 3=975-23 ft Distance: 50' Walk 10 feet (QC): 4 Walk 50 ft with 2 Turns(QC): 4 Gait Level of Assist: 4 Gait Persons Needed: 1 Gait Assistive Device: FWW Pt fatigues quickly and O2 drops to 85% with ambulation. Pt needs Pursed Lip breathing to bring O2 back to 91%, recovers quickly though. Exercises Supine Ex: Rolling, Scooting Seated Therapy Exercises: Sit to stand Treatments Pt still anxious over discharge and what might be in store since Weekly Rehab Meeting is this afternoon. PAPER FOLDER and pt discuss pt education items such as distance needed to ambulate and day to tasks need to be able to complete vs support from family/friends. Pt also advises of medical status and how that may affect discharge. PAPER FOLDER also advises to just see what is suggested at Meeting before being concerned. Pt transfers from Supine to EOB at slow pace but SBA, using bed rails. Pt transfers from EOB to standing using FWW at SBA and using rocking motion with a couple of attempts. Pt ambulates to restroom and dons & doffs new undergarments, pants and new pads for pericare. After dressing, Pt ambulates approx 50' to rest in chair in Commons area. Pt's O2 drops with dressing an ambulation. O2 is monitored throughout tx. OT arrives for tx at this times with all needs met and continuing to monitor O2. Assessment Pt struggles with fatigue and keeping O2 levels above 90% during tx. 85% after dressing and again after ambulation. PT Short Term Goals Short Term Goals Time Frame: Dec 12, 2017 Transfers (B,C,W/C) (FIM): 4 (met) Gait (FIM): 2 Gait Distance Comment: 100' Gait Level of Assist: 4 Gait Assistive Device: FWW Wheelchair Distance: 60',120' PT Oil Tester Goals Oil Tester Goals PT Oil Tester Goals Time Frame: Dec 26, 2017 Transfers (B,C,W/C) (FIM): 5 Sit to Lying (QC): 4 Lying-Sitting on Side/Bed(QC): 4 Sit to Stand (QC): 4 Rollin Roll Left to Right (QC): 4 Chair/Fme-cx-Gwsot Xfer(QC): 4 Car Transfer (QC): 4 Does the Patient Walk: Yes Gait (FIM): 5 Distance: 150' Walk 10 feet (QC): 4 Walk 10ft-Uneven Surface(QC): 4 Walk 50ft with 2 Turns (QC): 4 Walk 150 ft (QC): 4 Gait Level of Assist: 5 Gait Assistive Device: FWW Stairs (FIM): 2 # of Steps: 4 1 Step (curb) (QC): 4 4 Steps (QC): 4 12 Steps (QC): 4 Stairs Level Of Assist: 4 PT Plan Problem List Problem List: Activity Tolerance, Functional Strength, Safety, Balance, Gait, Transfer, Bed Mobility Treatment/Plan Treatment Plan: Continue Plan of Care Treatment Plan: Bed Mobility, Concurrent Therapy, Education, Functional Activity Yimi, Functional Strength, Group Therapy, Gait, Safety, Therapeutic Exercise, Transfers Treatment Duration: Dec 26, 2017 Frequency: Modified Program (IRF) Estimated Hrs Per Day: 1.5 hours per day Patient and/or Family Agrees t: Yes Safety Risks/Education Patient Education: Gait Training, Transfer Techniques, Correct Positioning, Safety Issues Teaching Recipient: Patient Teaching Methods: Discussion Response to Teaching: Verbalize Understanding Time/GCodes Time In: 815 Time Out: 945 Total Billed Treatment Time: 90 Total Billed Treatment 1, GT (20m), EX (15m) & FA x4 (55m) G Codes Necessary: RENNY Small PAPER FOLDER Dec 18, 2017 09:59
--- NOTE | 2017-12-18 11:29 | Occupational Ther Daily Note ---
OT Current Status-Daily Note Subjective Pt seen in [facility], taking recovery break after walking with PT. Agreeable to OT. No pain mentioned. Appearance Alert, cooperative Mental Status/Objective Functional [place] Measure 0=Not Assessed/NA 4=Minimal Assistance 1=Total Assistance 5=Supervision or Setup 2=Maximal Assistance 6=Modified [place] 3=Moderate Assistance 7=Complete [place] ADL-Treatment Towards end of tx, she walked about 50 feet to her room with SBA, FWW and was able to transfer to [facility] over toilet, with SBA (due to declining sats) to manage clothing and transfer. O2 sat 84% and HR 140 after walking and clothing management but it rise fairly quickly to 91-92%. Pt left up n BS to complete toileting and change pants. Functional [place] Measure 0=Not Assessed/NA 4=Minimal Assistance 1=Total Assistance 5=Supervision or Setup 2=Maximal Assistance 6=Modified [place] 3=Moderate Assistance 7=Complete IndependenceIRFPAI Quality Coding Scale 6 Independent with activity with or without an assistive device 5 Patient requires set up or clean up by helper. Patient completes activity by themselves 4 Supervision or touching assist (CGA). [place] provide cues , steadying assist 3 The helper provides less than half the effort to complete the activity 2 The helper provides more than half the effort to complete the activity 1 Dependent. The helper does all the effort to complete an activity 7 Patient refused to complete or attempt activity 9 The patient did not perform the activity before the current illness or injury 88 Not attempted due to Medical conditions or safety concerns Toilet/Commode Transfer (FIM): 5 (SBA due to decreasing oxygen sats. BS over toilet) Other Treatment She walked from chair in [facility], requiring three trials and mod assist to get up from chair with arms, about 50 feet and O2 sat was 78% and HR 145. it took several minutes for sat to increase to above 90%. Pt reported no tightness in her chest and coughed very little. In gym, she completed 12 minutes bilat UE exercise with arm bike set at 15W resistance, taking breaks every 3 minutes. Sats ranged from 88 to 91% and recovered quickly. She also did nuts and bolts and large peg activities with 1# weight on each arm. She took brief recovery breaks as needed and sats generally hovered 89-92%. She was able to reach for farthest nuts/bolts with L UE, showing increased functional use at L shoulder. All activities to increase activity tolerance and strength as needed for ADLs. Three trials and min assist to get out of w/c to walk back to room. Stopped after 50 feet and O2 sats 84%, HR 140, requiring recovery break. Education OT Patient Education: Progress toward Goal/Update tx plan, Purpose of tx/ functional activities, Safety issues, Transfer techniques Teaching Recipient: Patient Teaching Methods: Discussion Response to Teaching: Verbalize Understanding, Return Demonstration, Reinforcement Needed OT Short Term Goals Short Term Goals Time Frame: Dec 12, 2017 Toileting(FIM): 5 Transfers (B,C,W/C) (FIM): 4 (met) Toilet/Commode Transfer(FIM): 5 Additional Short Term Goals: 1-Demonstrate ADL Tasks, 2-Verbalize Understanding , 3-ImproveStrength/Yimi 1=Demonstrate adherence to instructed precautions during ADL tasks. 2=Patient will verbalize/demonstrate understanding of assistive devices/ modifications for ADL. 3=Patient will improve strength/tolerance for activity to enable patient to perform ADL's. OT Forestry Consultant Goals Intermediate Goals Time Frame: Dec 26, 2017 Eating (FIM): 7 Eating (QC): 6 Groomin Oral Hygiene (QC): 6 Bathing(FIM): 6 Shower/Bathe Self (QC): 6 Upper Body Dressing(FIM): 6 Upper Body Dressing (QC): 6 Lower Body Dressing(FIM): 6 Lower Body Dressing (QC): 6 On/Off Footwear (QC): 6 Toileting(FIM): 6 Toileting Hygiene (QC): 6 Toilet/Commode Transfer(FIM): 6 Toilet/Commode Transfer (QC): 6 Shower Transfer(FIM): 6 Additional Goals: 1-Demonstrate ADL Tasks, 2-Verbalize Understanding, 3- ImproveStrength/Yimi 1=Demonstrate adherence to instructed precautions during ADL tasks. 2=Patient will verbalize/demonstrate understanding of assistive devices/ modifications for ADL. 3=Patient will improve strength/tolerance for activity to enable patient to perform ADL's. OT Education/Plan Problem List/Assessment Pt would benefit from skilled OT to increase her independence in basic self care to allow her to safely return to her home Discharge Recommendations Plan/Recommendations: Continue POC Treatment Plan/Plan of Care Patient would benefit from OT for education, treatment and training to promote independence in ADL's, mobility, safety and/or upper extremity function for ADL' s. Plan of Care: ADL Retraining, Functional Mobility, Group Exercise/Act as Ind ( education, exercise, functional activity, activity tolerance, functional mobility, socialization), UE Funct Exercise/Act, UE Neuromus Re-Ed/Coord Treatment Duration: Dec 26, 2017 Frequency: At least 5 of 7 days/Wk (IRF) Estimated Hrs Per Day: 1.5 hours per day Agreement: Yes Rehab Potential: Good Time/GCodes Start Time: 09:45 Stop Time: 11:15 Total Time Billed (hr/min): 90 Billed Treatment Time visit, 75 minutes exercise, 15 minutes functional activity ASHLI MEZA OT Dec 18, 2017 11:29
--- NOTE | 2017-12-18 11:41 | Cardiology Progress Note ---
Subjective Date Seen by Provider: Dec 18, 2017 Time Seen by Provider: 11:40 Subjective/Events-last exam Patient is laying down in bed, denied any chest pain, no syncope, still having edema and some dyspnea on exertion Review of Systems General: No Chills, No Night Sweats; Fatigue; No Malaise, No Appetite, No Other HEENT: No Head Aches, No Visual Changes, No Eye Pain, No Ear Pain, No Dysphasia , No Sinus Congestion, No Post Nasal Drip, No Sore Throat, No Other Pulmonary: Dyspnea; No Cough, No Pleuritic Chest Pain, No Other Cardiovascular: Edema; No: Chest Pain, Palpitations, Orthopnea, Paroxysmal Noc. Dyspnea, Lt Headedness, Other Objective-Cardiology Exam Last Set of Vital Signs Vital Signs 12/18/17 12/18/17 05:52 09:00 Temp 98.4 Pulse 104 Resp 22 B/P (MAP) 112/67 (82) Pulse Ox 92 O2 Delivery Room Air Capillary Refill : Less Than 3 Seconds I&O Intake and Output 12/18/17 00:00 Intake Total 1450 ml Balance 1450 ml Intake Oral 1450 ml # Voids 6 # Urine Diapers 2 # Bowel Movements 1 General: Alert, Oriented X3, Cooperative, No Acute Distress HEENT: Atraumatic, PERRLA, EOMI, Mucous Memb Moist/[place] Neck: Supple, No JVD Lungs: Clear to Auscultation Heart: Regular Rate, Normal S1, Normal S2 Abdomen: Normal Bowel Sounds, Soft, No Tenderness, Other (obese) Extremities: Other (Chronic edema with wounds both shins RT >left) Skin: Other (Chronic wounds both legs RT > left) Neuro: Normal Speech, Sensation Intact, Other (Weaknee BLES) Results Lab Laboratory Tests Test 12/17/17 17:38 12/18/17 05:54 Range/Units Glucometer 119 H 89 70-110 MG/DL A/P-Cardiology Admission Diagnosis Foot ulcer Generalized weakness and debility Chronic venous insufficiency Diabetes mellitus Peripheral arterial disease Assessment/Plan Nonhealing foot ulcers, history of venous stasis ulcers. GEETA was abnormal, ultrasound of the arterial was nondiagnostic, CT showed patent artery with anterior tibial patent down to the foot. The posterior tibial and peroneal arteries were not well visualized. I discussed the management plan with Dr. Salgado and we will try compression therapy for her venous stasis ulcers. Will continue monitoring her status closely Generalized weakness and loss of energy, receiving physical therapy. Improving slowly. Low grade fever- resolved, managed by primary care physician Shortness of breath on exertion, receiving physical therapy. Chronic kidney disease, started on IV fluid and monitor renal function. Hypertension, continue to monitor. Hyperlipidemia, monitor lipids. Anemia, myelodysplastic, has been followed by Dr. Troncoso. Morbid obesity, BMI is 44, discussed weight loss and exercise. History of COPD, obstructive sleep apnea using C Pap. Clinical Quality Measures DVT/VTE Risk/Contraindication: Risk Factor Score Per Nursin RFS Level Per Nursing on Admit: 4+=Very High ARIANA BARROS MD Dec 18, 2017 11:41
[2017-12-18] MEDS: ACETAMINOPHEN 500 MG TAB (TYLENOL) PO PRN (13:22)
[2017-12-18] MEDS: DARBEPOETIN 40 MCG/ML (ARANESP) 1 ML VIAL SC SCH (15:11)
[2017-12-18 17:36] VITALS: BP 125/71
[2017-12-18] MEDS: MONTELUKAST 10 MG (SINGULAIR) TAB PO SCH (21:22)
[2017-12-18] MEDS: ATORVASTATIN 40 MG (LIPITOR) TABLET PO SCH (21:22)
[2017-12-19 05:44] VITALS: BP 122/77
[2017-12-19] MEDS: CALCIUM CARBONATE 600 MG (CALCARB) TAB PO SCH (06:42)
[2017-12-19] MEDS: CATHETER FLUSH 10 ML SYR IV SCH ×3 (06:42→21:35)
[2017-12-19] MEDS: FOLIC ACID 1 MG TAB PO SCH (06:43)
[2017-12-19] MEDS: ASCORBIC ACID (VIT C) 500 MG TABLET PO SCH (06:43)
[2017-12-19] MEDS: VITAMIN D3 1,000 UNITS (CHOLECALCIFEROL) TABLET PO SCH (06:43)
[2017-12-19] MEDS: CYANOCOBALAMIN 1,000 MCG (VITAMIN B-12) TABLET PO SCH (06:43)
[2017-12-19] MEDS: RT-ALBUTEROL SULF 2.5 MG/3 ML PRE-MIX VIAL INH SCH ×2 (07:14→22:28)
[2017-12-19] MEDS: RT-ADVAIR HFA 115/21 MCG PER PUFF IH SCH (07:14)
--- NOTE | 2017-12-19 08:32 | Cardiology Progress Note ---
Subjective Date Seen by Provider: Dec 19, 2017 Time Seen by Provider: 08:31 Subjective/Events-last exam No new complaints. Denies any CP or dyspnea. Objective-Cardiology Exam Last Set of Vital Signs Vital Signs 12/19/17 12/19/17 05:44 07:14 Temp 97.8 Pulse 100 Resp 20 B/P (MAP) 122/77 (92) Pulse Ox 92 O2 Delivery Room Air Capillary Refill : Less Than 3 Seconds I&O Intake and Output 12/19/17 00:00 Intake Total 1325 ml Balance 1325 ml Intake Oral 1325 ml # Voids 5 # Urine Diapers 4 General: Alert, Oriented X3, Cooperative, No Acute Distress HEENT: Atraumatic, PERRLA, EOMI, Mucous Memb Moist/[place] Neck: Supple, No JVD Lungs: Clear to Auscultation Heart: Regular Rate, Normal S1, Normal S2 Abdomen: Normal Bowel Sounds, Soft, No Tenderness, Other (obese) Extremities: Other (Chronic edema with wounds both shins RT >left) Skin: Other (Chronic wounds both legs RT > left) Neuro: Normal Speech, Sensation Intact, Other (Weaknee BLES) A/P-Cardiology Admission Diagnosis Foot ulcer Generalized weakness and debility Chronic venous insufficiency Diabetes mellitus Peripheral arterial disease Assessment/Plan Nonhealing foot ulcers, history of venous stasis ulcers. GEETA was abnormal, ultrasound of the arterial was nondiagnostic, CT showed patent artery with anterior tibial patent down to the foot. The posterior tibial and peroneal arteries were not well visualized. I discussed the management plan with Dr. Salgado and we will try compression therapy for her venous stasis ulcers. Will continue monitoring her status closely Generalized weakness and loss of energy, receiving physical therapy. Improving slowly. Low grade fever- resolved, managed by primary care physician Shortness of breath on exertion, receiving physical therapy. Chronic kidney disease, started on IV fluid and monitor renal function. Hypertension, continue to monitor. Hyperlipidemia, monitor lipids. Anemia, myelodysplastic, has been followed by Dr. Troncoso. Morbid obesity, BMI is 44, discussed weight loss and exercise. History of COPD, obstructive sleep apnea using C Pap. Clinical Quality Measures DVT/VTE Risk/Contraindication: Risk Factor Score Per Nursin RFS Level Per Nursing on Admit: 4+=Very High ALLEN BRADY Dec 19, 2017 08:31
[2017-12-19] MEDS: ACETAMINOPHEN 500 MG TAB (TYLENOL) PO PRN ×2 (08:36→17:23)
[2017-12-19] MEDS: IRON SUCROSE 200 MG/10 ML (VENOFER) VIAL IV SCH (10:11)
--- NOTE | 2017-12-19 11:25 | Occupational Ther Daily Note ---
OT Current Status-Daily Note Subjective Pt seen in room, up in bed, agreeable to OT. No pain mentioned. Appearance Alert, cooperative Mental Status/Objective Functional [place] Measure 0=Not Assessed/NA 4=Minimal Assistance 1=Total Assistance 5=Supervision or Setup 2=Maximal Assistance 6=Modified [place] 3=Moderate Assistance 7=Complete [place] ADL-Treatment She was able to move both legs and sit EOB with SBA. Sit to stand with SBA with bed elevated. Pt walked slowly with SBA, FWW to bathroom, managed clothing with SBA and got on/off BSC over toilet with SBA, FWW. She washed upper legs and hakeem area in front while on BSC but was unable to clean back hakeem area. Discussed options for toileting aid. Able to get pants off and clean one on, replace incontinence pads but still needed help to get pants up over bottom. She walked to w/c and then positioned chair at sink to complete sponge bath and groom. She managed locking and unlocking brakes on chair. Brushed teeth, combed hair, washed face and hands mod I w/c level. Also completed upper body bath and changed shirt with setup. All ADLs took longer than usual due to frequent recovery breaks. Extensive education throughout on energy conservation techniques. Pt also provided with written instructions on energy conservation. Pt able to verbalize follow through on ADLs from previous education. She needed min assist to get up out of w/c (tends to not go forward enough), walked with SBA, FWW to recliner and got into chair without help. Pt left up in recliner, all needs met. Functional [place] Measure 0=Not Assessed/NA 4=Minimal Assistance 1=Total Assistance 5=Supervision or Setup 2=Maximal Assistance 6=Modified [place] 3=Moderate Assistance 7=Complete IndependenceIRFPAI Quality Coding Scale 6 Independent with activity with or without an assistive device 5 Patient requires set up or clean up by helper. Patient completes activity by themselves 4 Supervision or touching assist (CGA). [place] provide cues , steadying assist 3 The helper provides less than half the effort to complete the activity 2 The helper provides more than half the effort to complete the activity 1 Dependent. The helper does all the effort to complete an activity 7 Patient refused to complete or attempt activity 9 The patient did not perform the activity before the current illness or injury 88 Not attempted due to Medical conditions or safety concerns Grooming (FIM): 6 Bathing (FIM): 4 (7/8 Help with hakeem in back. Sponge bath) Bathing Location: L Arm, R Arm, L Upper Leg, R Upper Leg, Chest, Abdomen, Perineal Area Upper Body (FIM): 5 (setup) Lower Body Dressing (FIM): 4 (Help to pull pants up in back.) Toileting (FIM): 2 (34% Help to wipe in back. Help to get pants up over bottom. BSC, FWW, grab bar) Transfers (B, C, W/C) (FIM): 4 (Min assist to get out of w/c, with cushion) Toilet/Commode Transfer (FIM): 5 (BSC over toilet) Education OT Patient Education: Energy conservation, Modified ADL techniques, Progress toward Goal/Update tx plan, Purpose of tx/functional activities, Transfer techniques, Use of adapted equipment Teaching Recipient: Patient Teaching Methods: Demonstration, Discussion Response to Teaching: Verbalize Understanding, Return Demonstration, Reinforcement Needed OT Short Term Goals Short Term Goals Time Frame: Dec 12, 2017 Toileting(FIM): 5 Transfers (B,C,W/C) (FIM): 4 (met) Toilet/Commode Transfer(FIM): 5 Additional Short Term Goals: 1-Demonstrate ADL Tasks, 2-Verbalize Understanding , 3-ImproveStrength/Yimi 1=Demonstrate adherence to instructed precautions during ADL tasks. 2=Patient will verbalize/demonstrate understanding of assistive devices/ modifications for ADL. 3=Patient will improve strength/tolerance for activity to enable patient to perform ADL's. OT Gear Keeper Goals Gear Keeper Goals Time Frame: Dec 26, 2017 Eating (FIM): 7 Eating (QC): 6 Groomin Oral Hygiene (QC): 6 Bathing(FIM): 6 Shower/Bathe Self (QC): 6 Upper Body Dressing(FIM): 6 Upper Body Dressing (QC): 6 Lower Body Dressing(FIM): 6 Lower Body Dressing (QC): 6 On/Off Footwear (QC): 6 Toileting(FIM): 6 Toileting Hygiene (QC): 6 Toilet/Commode Transfer(FIM): 6 Toilet/Commode Transfer (QC): 6 Shower Transfer(FIM): 6 Additional Goals: 1-Demonstrate ADL Tasks, 2-Verbalize Understanding, 3- ImproveStrength/Yimi 1=Demonstrate adherence to instructed precautions during ADL tasks. 2=Patient will verbalize/demonstrate understanding of assistive devices/ modifications for ADL. 3=Patient will improve strength/tolerance for activity to enable patient to perform ADL's. OT Education/Plan Problem List/Assessment Pt would benefit from skilled OT to increase her independence in basic self care to allow her to safely return to her home Discharge Recommendations Plan/Recommendations: Continue POC Treatment Plan/Plan of Care Patient would benefit from OT for education, treatment and training to promote independence in ADL's, mobility, safety and/or upper extremity function for ADL' s. Plan of Care: ADL Retraining, Functional Mobility, Group Exercise/Act as Ind ( education, exercise, functional activity, activity tolerance, functional mobility, socialization), UE Funct Exercise/Act, UE Neuromus Re-Ed/Coord Treatment Duration: Dec 26, 2017 Frequency: At least 5 of 7 days/Wk (IRF) Estimated Hrs Per Day: 1.5 hours per day Agreement: Yes Rehab Potential: Good Time/GCodes Start Time: 08:30 Stop Time: 10:00 Total Time Billed (hr/min): 90 Billed Treatment Time visit, 90 minutes ASHLI VARGAS OT Dec 19, 2017 11:25
--- NOTE | 2017-12-19 12:53 | Physical Therapy Daily Note ---
PT Daily Note-Current Subjective Pt sitting in recliner upon arrival. Pt agrees to PT. Pt continues being talkative and anxious about changes in health as well as discharge down the road. Pain Numeric Pain Scale: 5-Moderate Pain Location: Right, Left Location Body Site: Thigh Pain Description: Ache, Tightness Mental Status Patient Orientation: Person, Place, Time, Situation Attachments: IV Transfers Functional [place] Measure 0=Not Assessed/NA 4=Minimal Assistance 1=Total Assistance 5=Supervision or Setup 2=Maximal Assistance 6=Modified [place] 3=Moderate Assistance 7=Complete IndependenceIRFPAI Quality Coding Scale 6 Independent with activity with or without an assistive device 5 Patient requires set up or clean up by helper. Patient completes activity by themselves 4 Supervision or touching assist (CGA). [place] provide cues , steadying assist 3 The helper provides less than half the effort to complete the activity 2 The helper provides more than half the effort to complete the activity 1 Dependent. The helper does all the effort to complete an activity 7 Patient refused to complete or attempt activity 9 The patient did not perform the activity before the current illness or injury 88 Not attempted due to Medical conditions or safety concerns Scootin Sit to/from Stand: 3 Sit to Stand (QC): 3 Car Transfer (QC): 3 Weight Bearing Right Lower Extremity: Right Full Weight Bearing Left Lower Extremity: Left Full Weight Bearing Gait Training Does the Patient Walk?: Yes Distance (FIM): 3=933-85 ft Distance: 100' Walk 10 feet (QC): 5 Walk 50 ft with 2 Turns(QC): 5 Gait Level of Assist: 4 Gait Persons Needed: 1 Gait Assistive Device: FWW Pt walks with very slow trever, sometimes leaning over or on FWW. Pt needs VC occasionally to stand tall and pickle maker feet,not shuffle. Exercises Seated Therapy Exercises: Ankle pumps, Sit to stand, Long arc quads, Hip flexion, Kicking activity Seated Reps: 15 Treatments Pt needs pt education over concerns of changes in medical, being referred for Dr Alas consultation and about how this affects plan for possible discharge as pt wants to [facility]. Pt transfers from recliner and ambulates to restroom where pt needs some assistance in donning & doffing pants for toileting. After finishing, pt ambulates to car simulator for transfer. Pt needs Mod A getting legs into and out of car. Pt takes short rest, completes Seated Ex then returns to room to rest in recliner & order lunch at end of tx. Pt has all needs met. Assessment Current Status: Fair Progress Pt is slow moving and takes extended time to complete tasks. Pt is anxious and needs reassurance about progression & discharge plans. PT Short Term Goals Short Term Goals Time Frame: Dec 12, 2017 Transfers (B,C,W/C) (FIM): 4 (met) Gait (FIM): 2 Gait Distance Comment: 100' Gait Level of Assist: 4 Gait Assistive Device: FWW Wheelchair Distance: 60',120' PT Manuscripts Curator Goals Manuscripts Curator Goals PT Manuscripts Curator Goals Time Frame: Dec 26, 2017 Transfers (B,C,W/C) (FIM): 5 Sit to Lying (QC): 4 Lying-Sitting on Side/Bed(QC): 4 Sit to Stand (QC): 4 Rollin Roll Left to Right (QC): 4 Chair/Stw-le-Twhwm Xfer(QC): 4 Car Transfer (QC): 4 Does the Patient Walk: Yes Gait (FIM): 5 Distance: 150' Walk 10 feet (QC): 4 Walk 10ft-Uneven Surface(QC): 4 Walk 50ft with 2 Turns (QC): 4 Walk 150 ft (QC): 4 Gait Level of Assist: 5 Gait Assistive Device: FWW Stairs (FIM): 2 # of Steps: 4 1 Step (curb) (QC): 4 4 Steps (QC): 4 12 Steps (QC): 4 Stairs Level Of Assist: 4 PT Plan Problem List Problem List: Activity Tolerance, Functional Strength, Safety, Balance, Gait, Transfer Treatment/Plan Treatment Plan: Continue Plan of Care Treatment Plan: Bed Mobility, Concurrent Therapy, Education, Functional Activity Yimi, Functional Strength, Group Therapy, Gait, Safety, Therapeutic Exercise, Transfers Treatment Duration: Dec 26, 2017 Frequency: Modified Program (IRF) Estimated Hrs Per Day: 1.5 hours per day Patient and/or Family Agrees t: Yes Safety Risks/Education Patient Education: Gait Training, Transfer Techniques, Correct Positioning, Safety Issues Teaching Recipient: Patient Teaching Methods: Discussion Response to Teaching: Verbalize Understanding Time/GCodes Time In: 1030 Time Out: 1210 Total Billed Treatment Time: 100 Total Billed Treatment 1, FA x4 (60m) & EX x2 (40m) G Codes Necessary: No TREIBER,RENNY FREIGHT ASSOCIATE Dec 19, 2017 12:53
--- NOTE | 2017-12-19 15:37 | Cardiology Progress Note ---
Subjective Date Seen by Provider: Dec 19, 2017 Time Seen by Provider: 08:30 Subjective/Events-last exam Patient was seen at bedside, laying down in bed, no new complaint. Had mild dyspnea. Review of Systems General: No Chills, No Night Sweats, No Fatigue, No Malaise, No Appetite, No Other HEENT: No Head Aches, No Visual Changes, No Eye Pain, No Ear Pain, No Dysphasia , No Sinus Congestion, No Post Nasal Drip, No Sore Throat, No Other Pulmonary: Dyspnea, Cough; No Pleuritic Chest Pain, No Other Cardiovascular: Edema; No: Chest Pain, Palpitations, Orthopnea, Paroxysmal Noc. Dyspnea, Lt Headedness, Other Objective-Cardiology Exam Last Set of Vital Signs Vital Signs 12/19/17 12/19/17 12/19/17 05:44 07:14 08:39 Temp 97.8 Pulse 100 Resp 20 B/P (MAP) 122/77 (92) Pulse Ox 92 O2 Delivery Room Air Capillary Refill : Less Than 3 Seconds I&O Intake and Output 12/19/17 00:00 Intake Total 1325 ml Balance 1325 ml Intake Oral 1325 ml # Voids 5 # Urine Diapers 4 General: Alert, Oriented X3, Cooperative, No Acute Distress HEENT: Atraumatic, PERRLA, EOMI, Mucous Memb Moist/[place] Neck: Supple, No JVD Lungs: Clear to Auscultation Heart: Regular Rate, Normal S1, Normal S2 Abdomen: Normal Bowel Sounds, Soft, No Tenderness, Other (obese) Extremities: Other (Chronic edema with wounds both shins RT >left) Skin: Other (Chronic wounds both legs RT > left) Neuro: Normal Speech, Sensation Intact, Other (Weaknee BLES) Results Lab Laboratory Tests Test 12/19/17 06:19 Range/Units Glucometer 97 70-110 MG/DL A/P-Cardiology Admission Diagnosis Foot ulcer Generalized weakness and debility Chronic venous insufficiency Diabetes mellitus Peripheral arterial disease Assessment/Plan Nonhealing foot ulcers, history of venous stasis ulcers. GEETA was abnormal, ultrasound of the arterial was nondiagnostic, CT showed patent artery with anterior tibial patent down to the foot. The posterior tibial and peroneal arteries were not well visualized. I discussed the management plan with Dr. Salgado and we will try compression therapy for her venous stasis ulcers. Will continue monitoring her status closely Generalized weakness and loss of energy, receiving physical therapy. Improving slowly. Low grade fever- resolved, managed by primary care physician Shortness of breath on exertion, hypoxemia, discussed pulmonary consultation for Dr. Alas. receiving physical therapy. Chronic kidney disease, started on IV fluid and monitor renal function. Hypertension, continue to monitor. Hyperlipidemia, monitor lipids. Anemia, myelodysplastic, has been followed by Dr. Troncoso. Morbid obesity, BMI is 44, discussed weight loss and exercise. History of COPD, obstructive sleep apnea using C Pap. Clinical Quality Measures DVT/VTE Risk/Contraindication: Risk Factor Score Per Nursin RFS Level Per Nursing on Admit: 4+=Very High ARIANA BARROS MD Dec 19, 2017 15:37
[2017-12-19 16:15] VITALS: BP 135/77
--- NOTE | 2017-12-19 19:16 | PM & R (SOAP) Progress Note ---
Subjective This was a face to face visit with the patient. Date Seen by Provider: Dec 19, 2017 Time Seen by Provider: 19:00 Subjective/Events-last exam Patient was seen in her room this evening Patient desats with ambulation Will ask DR Alas to see,Patient mod assist for transfers Date Identified: Dec 19, 2017 Time Identified: 19:00 Medication Intervention: DR Alas to assess for any meds re desat with gait Review of Systems Pulmonary: Dyspnea Cardiovascular: Edema Neurological: Weakness Objective Physician Exam Last Set of Vital Signs Vital Signs Date Time Temp Pulse Resp B/P (MAP) Pulse Ox O2 Delivery O2 Flow Rate FiO2 12/19/17 16:15 99.4 107 18 135/77 (96) 90 Room Air Capillary Refill : Less Than 3 Seconds I&O Intake and Output 12/19/17 00:00 Intake Total 1325 ml Balance 1325 ml Intake Oral 1325 ml # Voids 5 # Urine Diapers 4 General: Alert, Oriented X3, Cooperative, No Acute Distress HEENT: Atraumatic, PERRLA, EOMI, Mucous Memb Moist/[place] Neck: Supple, No JVD Lungs: Clear to Auscultation Heart: Regular Rate, Normal S1, Normal S2 Abdomen: Normal Bowel Sounds, Soft, No Tenderness, Other (obese) Extremities: Other (Chronic edema with wounds both shins RT >left) Skin: Other (Chronic wounds both legs RT > left) Neuro: Normal Speech, Sensation Intact, Other (Weaknee BLES) Results Lab Data Laboratory Tests 12/17/17 06:18: Glucometer 112H 12/17/17 09:19: White Blood Count 8.8, Red Blood Count 2.88L, Hemoglobin 8.4L, Hematocrit 27L, Mean Corpuscular Volume 93, Mean Corpuscular Hemoglobin 29, Mean Corpuscular Hemoglobin Concent 31L, Red Cell Distribution Width 15.9H, Platelet Count 365, Mean Platelet Volume 8.3, Neutrophils (%) (Auto) 79H, Lymphocytes (%) (Auto) 10L , Monocytes (%) (Auto) 9, Eosinophils (%) (Auto) 2, Basophils (%) (Auto) 0, Neutrophils # (Auto) 7.0, Lymphocytes # (Auto) 0.9L, Monocytes # (Auto) 0.8, Eosinophils # (Auto) 0.2, Basophils # (Auto) 0.0 12/17/17 17:38: Glucometer 119H 12/18/17 05:54: Glucometer 89 12/18/17 15:09: Glucometer 143H 12/19/17 06:19: Glucometer 97 12/19/17 16:14: Glucometer 116H Assessment/Plan Assessment and Plan General debil secondary to Chronic wounds both legs DR Salgado following ADITI on CPAP since 1998 but now mendel desat with ambulation will see if Pulm can see ADITI on cpap Morbid obesity Chronic anemia placed on Iron sucrose receives aranesp equivalent via Cancer center DVT Prophylaxis SCDS Lovenox held due to Anemia and reported BRB per rectum Hypotension with HX HTN benicar held Acute exacerbation of asthma treated COPD DM controlled CKD Plan Continue PT/OT Await Pulm recs F/U with Hospitalist and Cardiology and DR Salgado wound care Discharge set tentatively for next Saturday12-24-17 Co-Morbidities that are continuing to impact the rehab process: (include details ) JANNET GOTTI MD Dec 19, 2017 19:16
[2017-12-19] MEDS: ATORVASTATIN 40 MG (LIPITOR) TABLET PO SCH (21:35)
[2017-12-19] MEDS: MONTELUKAST 10 MG (SINGULAIR) TAB PO SCH (21:35)
[2017-12-20] MEDS: RT-ADVAIR HFA 115/21 MCG PER PUFF IH SCH ×2 (00:25→19:10)
[2017-12-20 05:15] VITALS: BP 127/83
[2017-12-20 06:21] LABS: HEMOGLOBIN 7.9 G/DL (11.5-16.0); MEAN PLATELET VOLUME 8.4 FL (7.4-10.4); RED BLOOD COUNT 2.68 10^6/uL (4.35-5.85); RED CELL DISTRIBUTION WIDTH 16.5 % (10.0-14.5); WHITE BLOOD COUNT 6.1 10^3/uL (4.3-11.0)
[2017-12-20] MEDS: FOLIC ACID 1 MG TAB PO SCH (06:25)
[2017-12-20] MEDS: CYANOCOBALAMIN 1,000 MCG (VITAMIN B-12) TABLET PO SCH (06:25)
[2017-12-20] MEDS: VITAMIN D3 1,000 UNITS (CHOLECALCIFEROL) TABLET PO SCH (06:25)
[2017-12-20] MEDS: CALCIUM CARBONATE 600 MG (CALCARB) TAB PO SCH (06:26)
[2017-12-20] MEDS: CATHETER FLUSH 10 ML SYR IV SCH ×3 (06:26→20:05)
[2017-12-20] MEDS: ASCORBIC ACID (VIT C) 500 MG TABLET PO SCH (06:26)
[2017-12-20 07:06] LABS: ALANINE AMINOTRANSFERASE 12 U/L (0-55); ALBUMIN 2.6 GM/DL (3.2-4.5); ALKALINE PHOSPHATASE 134 U/L (40-136); BILIRUBIN,TOTAL 0.2 MG/DL (0.1-1.0); BUN/CREATININE RATIO 14; CALCIUM 8.1 MG/DL (8.5-10.1); CARBON DIOXIDE 22 MMOL/L (21-32); CHLORIDE 111 MMOL/L (98-107); CREATININE SERUM 0.78 MG/DL (0.60-1.30); GFR ESTIMATED > 60; GLUCOSE 91 MG/DL (70-105); POTASSIUM 4.3 MMOL/L (3.6-5.0); SODIUM 139 MMOL/L (135-145); TOTAL PROTEIN 5.3 GM/DL (6.4-8.2)
[2017-12-20] MEDS: RT-ALBUTEROL SULF 2.5 MG/3 ML PRE-MIX VIAL INH SCH (08:44)
--- NOTE | 2017-12-20 09:07 | Pulmonary Consultation ---
History of Present Illness History of Present Illness Date of Consultation 12/20/17 09:02 Date of Admission Reason for Visit: nonhealing foot ulcers Allergies and Home Medications Allergies Coded Allergies: NSAIDS (Non-Steroidal Anti-Inflamma (Verified Allergy, Unknown, 10/13/15) celecoxib (Unverified Allergy, Unknown, 12/05/17) penicillin G (Verified Allergy, Unknown, HAS RECEIVED ANCEF W/O ISSUE, ) Home Medications Acetaminophen 500 Mg Tablet, 1,000 MG PO Q4H PRN for PAIN-MILD, (Reported) Albuterol Sulfate 18 Gm Hfa.aer.ad, 2 PUFF INH Q4H PRN for SHORTNESS OF BREATH, (Reported) Ascorbate Calcium 500 Mg Tablet, 500 MG PO 1200, (Reported) Atorvastatin Calcium 40 Mg Tablet, 40 MG PO HS, (Reported) Cholecalciferol (Vitamin D3) 2,000 Unit Capsule, 2,000 UNIT PO 1200, (Reported) Cyanocobalamin 100 Mcg Tablet, 200 MCG PO 1200, (Reported) Fluticasone/Salmeterol 1 Each Blst.w.dev, 1 PUFF INH BID, (Reported) Folic Acid 1 Mg Tablet, 1 MG PO 1200, (Reported) Furosemide 40 Mg Tablet, 40 MG PO DAILY PRN for SWELLING, (Reported) Metformin HCl 1,000 Mg Tablet, 1,000 MG PO 1800, (Reported) Montelukast Sodium 10 Mg Tablet, 10 MG PO HS, (Reported) Olmesartan Medoxomil 40 Mg Tablet, 20 MG PO DAILY, (Reported) TAKES 1/2 (40MG) TABLET Pioglitazone HCl 30 Mg Tablet, 30 MG PO DAILY, (Reported) Potassium Chloride 10 Meq Tablet.er, 10 MEQ PO DAILY PRN for WHEN TAKING FUROSEMIDE, (Reported) Tramadol HCl 50 Mg Tablet, 50-100 MG PO Q6H PRN for PAIN-MODERATE, (Reported) Past Xvyyqbb-Uyxukh-Ijmtcr Hx Past Med/Social Hx: Reviewed Nursing Past Med/Soc Hx, Reviewed and Corrections made Patient Social History Alcohol Use: Denies Use Recreational Drug Use: No Smoking Status: Never a Smoker Recent Foreign Travel: No Contact w/Someone Who Travel: No Recent Infectious Disease Expo: No Recent Hopitalizations: No Seasonal Allergies Seasonal Allergies: Yes Past Medical History Surgeries: Yes Respiratory: Yes Asthma Currently Using CPAP: Yes Currently Using BIPAP: No Cardiac: Yes High Cholesterol, Hypertension Neurological: No : No Female Reproductive Disorders: Denies Sexually Transmitted Disease: No HIV/AIDS: No Genitourinary: No Bladder Infection Hiatal Hernia Musculoskeletal: Yes Osteoporosis, Arthritis, Chronic Back Pain Endocrine: Yes Diabetes, Non-Insulin dep Are Your Blood Sugars Over 250: No HEENT: No Hearing Impairment: Denies Cancer: Yes (melanoma 5 yrs ago on shoulder) Did You Recieve Any Treatments: No Psychosocial: No Integumentary: Yes Blood Disorders: No Adverse Reaction/Blood Tranf: No Family Medical History Patient reports no known family medical history. Sepsis Event Evaluation Height, Weight, BMI Height: 5'6.00" Weight: 308lbs. 1.6oz. [id number]; 44.3 BMI Method: Exam Exam Vital Signs Date Time Temp Pulse Resp B/P (MAP) Pulse Ox O2 Delivery O2 Flow Rate FiO2 12/20/17 08:44 94 Room Air 12/20/17 05:15 98.4 100 18 127/83 (98) 92 Room Air 12/19/17 22:28 Room Air 12/19/17 21:00 Room Air 12/19/17 16:15 99.4 107 18 135/77 (96) 90 Room Air I & O 12/20/17 07:00 Intake Total 1100 ml Balance 1100 ml Height & Weight Height: 5'6.00" Weight: 308lbs. 1.6oz. [id number]; 44.3 BMI Method: General Appearance: No Apparent Distress, Chronically ill, Obese HEENT: PERRL/EOMI, TMs Normal, Normal ENT Inspection, Pharynx Normal Neck: Full Range of Motion, Normal Inspection, Non Tender, Supple, Carotid Bruit Respiratory: Chest Non Tender, Lungs Clear, Normal Breath Sounds, No Accessory Muscle Use, No Respiratory Distress Cardiovascular: Regular Rate, Rhythm, No Edema, No Gallop, No JVD, No Murmur, Normal Peripheral Pulses, Tachycardia Extremity: Other (1-2+ pedal edema stable feet are warm serous drainage noted on bedding legs wrapped ankles to knees with no more than trace edema likely.) Neurologic/Psychiatric: Alert, Oriented x3 Skin: Normal Color, Warm/Dry Lymphatic: No Adenopathy Results Lab Laboratory Tests 12/20/17 06:10 Assessment/Plan Assessment/Plan COPD -Increase SVN to Q6 and add Advair Morbid obesity with ADITI Foot ulcer- unhealing Debility DM/PAD CKD LUIS MUJICA DO Dec 20, 2017 09:07
[2017-12-20] MEDS ORDERED: RT-ALBUTEROL/IPRATROPIUM 3 ML (DUONEB) VIAL INH PRN (09:15)
--- NOTE | 2017-12-20 12:11 | PM & R (SOAP) Progress Note ---
Subjective This was a face to face visit with the patient. Date Seen by Provider: Dec 20, 2017 Time Seen by Provider: 07:55 Subjective/Events-last exam Patient was seen in her room this AM Appreciate DR Hart note and orders Advair and SVN treatments ordered,Patient Min assist for transfers Review of Systems Pulmonary: Dyspnea Cardiovascular: Edema Neurological: Weakness Objective Physician Exam Last Set of Vital Signs Vital Signs Date Time Temp Pulse Resp B/P (MAP) Pulse Ox O2 Delivery O2 Flow Rate FiO2 12/20/17 09:00 Room Air 12/20/17 08:44 94 12/20/17 05:15 98.4 100 18 127/83 (98) Capillary Refill : Less Than 3 Seconds I&O Intake and Output 12/20/17 00:00 Intake Total 1050 ml Balance 1050 ml Intake Oral 1050 ml # Voids 5 # Urine Diapers 2 General: Alert, Oriented X3, Cooperative, No Acute Distress HEENT: Atraumatic, PERRLA, EOMI, Mucous Memb Moist/[place] Neck: Supple, No JVD Lungs: Clear to Auscultation Heart: Regular Rate, Normal S1, Normal S2 Abdomen: Normal Bowel Sounds, Soft, No Tenderness, Other (obese) Extremities: Other (Chronic edema with wounds both shins RT >left) Skin: Other (Chronic wounds both legs RT > left) Neuro: Normal Speech, Sensation Intact, Other (Weaknee BLES) Results Lab Data Laboratory Tests 12/17/17 17:38: Glucometer 119H 12/18/17 05:54: Glucometer 89 12/18/17 15:09: Glucometer 143H 12/19/17 06:19: Glucometer 97 12/19/17 16:14: Glucometer 116H 12/20/17 04:45: Glucometer 96 12/20/17 06:10: White Blood Count 6.1, Red Blood Count 2.68L, Hemoglobin 7.9L, Hematocrit 25L, Mean Corpuscular Volume 94, Mean Corpuscular Hemoglobin 30, Mean Corpuscular Hemoglobin Concent 31L, Red Cell Distribution Width 16.5H, Platelet Count 339, Mean Platelet Volume 8.4, Sodium Level 139, Potassium Level 4.3, Chloride Level 111H, Carbon Dioxide Level 22, Anion Gap 6, Blood Urea Nitrogen 11, Creatinine 0.78, Estimat Glomerular Filtration Rate > 60, BUN/Creatinine Ratio 14, Glucose Level 91, Calcium Level 8.1L, Corrected Calcium 9.2, Total Bilirubin 0.2, Aspartate Amino Transf (AST/SGOT) 22, Alanine Aminotransferase (ALT/SGPT) 12, Alkaline Phosphatase 134, Total Protein 5.3L, Albumin 2.6L Assessment/Plan Assessment and Plan general debil secondary to chronic wounds both legs DR Salgado following Chronic anemia on aranesp and Iron sucrose Low grade fever resolved Hypotension with HX HTN benicar on hold Acute exacerbation of Asthma treated DM controlled DVT Prophylaxis lovenox held due to anemia and BRB per rectum Morbid obesity with ADITI on CPAP COPD advair and SVNtreatments ordered CKD Plan Continue PT/OT/Wound care F/U with DR Salgado and [place] and Cardiology and Hospitalist as needed Monitor for any further 02 desat with ambulation now that SVN treatments oredred as well as advair Discharge remains set tentatively for next Saturday12-24-17 Will confirm with Co-Morbidities that are continuing to impact the rehab process: (include details ) JANNET GOTTI MD Dec 20, 2017 12:11
--- NOTE | 2017-12-20 12:13 | Physical Therapy Daily Note ---
PT Daily Note-Current Subjective Agrees to Rx, states she has had such a busy morning and is a little frazzled. Requests clothes donned Pain Numeric Pain Scale: 3 Location: Left (nd right) Location Body Site: Knee Pain Description: Ache Mental Status Patient Orientation: Normal For Age Transfers Functional [place] Measure 0=Not Assessed/NA 4=Minimal Assistance 1=Total Assistance 5=Supervision or Setup 2=Maximal Assistance 6=Modified [place] 3=Moderate Assistance 7=Complete IndependenceIRFPAI Quality Coding Scale 6 Independent with activity with or without an assistive device 5 Patient requires set up or clean up by helper. Patient completes activity by themselves 4 Supervision or touching assist (CGA). [place] provide cues , steadying assist 3 The helper provides less than half the effort to complete the activity 2 The helper provides more than half the effort to complete the activity 1 Dependent. The helper does all the effort to complete an activity 7 Patient refused to complete or attempt activity 9 The patient did not perform the activity before the current illness or injury 88 Not attempted due to Medical conditions or safety concerns Transfers (B, C, W/C) (FIM): 4 Scootin Rollin Supine to/from Sit: 5 (using bed cane and cane to lift feet in did this manuever at home) Sit to/from Stand: 4 (needs min assist from low surface, SBA high surface) Weight Bearing Right Lower Extremity: Right Full Weight Bearing Left Lower Extremity: Left Full Weight Bearing Gait Training Does the Patient Walk?: Yes Gait (FIM): 2 Distance (FIM): 4=796-59 ft (125x3) Gait Level of Assist: 5 Gait Persons Needed: 1 Gait Assistive Device: FWW mild dyspnea, slow, head down, heavy weight bearing on FWW Exercises Supine Ex: Bridging, Ankle pumps, Quad Set, Rolling, Glut sets, Heel Slides, Short Arc Quads, Scooting, Straight leg raise, Hip abd/add Supine Reps: 10 (x2) Treatments dressed sitting EOB using dressing stick all SBA Assessment Current Status: Good Progress slow but noted progress in all phases of RX PT Short Term Goals Short Term Goals Time Frame: Dec 12, 2017 Transfers (B,C,W/C) (FIM): 4 (met) Gait (FIM): 2 Gait Distance Comment: 100' Gait Level of Assist: 4 Gait Assistive Device: FWW Wheelchair Distance: 60',120' PT Long-Term Goals Flash Ranging Crewmember Goals PT Flash Ranging Crewmember Goals Time Frame: Dec 26, 2017 Transfers (B,C,W/C) (FIM): 5 Sit to Lying (QC): 4 Lying-Sitting on Side/Bed(QC): 4 Sit to Stand (QC): 4 Rollin Roll Left to Right (QC): 4 Chair/Kzl-ij-Nyyge Xfer(QC): 4 Car Transfer (QC): 4 Does the Patient Walk: Yes Gait (FIM): 5 Distance: 150' Walk 10 feet (QC): 4 Walk 10ft-Uneven Surface(QC): 4 Walk 50ft with 2 Turns (QC): 4 Walk 150 ft (QC): 4 Gait Level of Assist: 5 Gait Assistive Device: FWW Stairs (FIM): 2 # of Steps: 4 1 Step (curb) (QC): 4 4 Steps (QC): 4 12 Steps (QC): 4 Stairs Level Of Assist: 4 PT Plan Treatment/Plan Treatment Plan: Continue Plan of Care Treatment Plan: Bed Mobility, Concurrent Therapy, Education, Functional Activity Yimi, Functional Strength, Group Therapy, Gait, Safety, Therapeutic Exercise, Transfers Treatment Duration: Dec 26, 2017 Frequency: Modified Program (IRF) Estimated Hrs Per Day: 1.5 hours per day Patient and/or Family Agrees t: Yes Safety Risks/Education Patient Education: Gait Training, Transfer Techniques, Correct Positioning, Disease Process, Safety Issues Teaching Recipient: Patient Teaching Methods: Demonstration, Discussion Response to Teaching: Verbalize Understanding, Return Demonstration, Reinforcement Needed Time/GCodes Time In: 1100 Time Out: 1200 Total Billed Treatment Time: 60 Total Billed Treatment 1,GT25m,EX20mn,FA15m G Codes Necessary: WERNER Leiva UTILITY AIDE Dec 20, 2017 12:13
--- NOTE | 2017-12-20 13:29 | Cardiology Progress Note ---
Subjective Date Seen by Provider: Dec 20, 2017 Time Seen by Provider: 13:27 Subjective/Events-last exam Patient was seen while receiving physical therapy, denied any chest pain. No significant dyspnea beyond her baseline Review of Systems General: No Chills, No Night Sweats, No Fatigue; Malaise; No Appetite, No Other HEENT: No Head Aches, No Visual Changes, No Eye Pain, No Ear Pain, No Dysphasia , No Sinus Congestion, No Post Nasal Drip, No Sore Throat, No Other Pulmonary: Dyspnea; No Cough, No Pleuritic Chest Pain, No Other Cardiovascular: Edema; No: Chest Pain, Palpitations, Orthopnea, Paroxysmal Noc. Dyspnea, Lt Headedness, Other Objective-Cardiology Exam Last Set of Vital Signs Vital Signs 12/20/17 12/20/17 12/20/17 05:15 08:44 09:00 Temp 98.4 Pulse 100 Resp 18 B/P (MAP) 127/83 (98) Pulse Ox 94 O2 Delivery Room Air Capillary Refill : Less Than 3 Seconds I&O Intake and Output 12/20/17 00:00 Intake Total 1050 ml Balance 1050 ml Intake Oral 1050 ml # Voids 5 # Urine Diapers 2 General: Alert, Oriented X3, Cooperative, No Acute Distress HEENT: Atraumatic, PERRLA, EOMI, Mucous Memb Moist/Carefree Neck: Supple, No JVD Lungs: Clear to Auscultation Heart: Regular Rate, Normal S1, Normal S2 Abdomen: Normal Bowel Sounds, Soft, No Tenderness, Other (obese) Extremities: Other (Chronic edema with wounds both shins RT >left) Skin: Other (Chronic wounds both legs RT > left) Neuro: Normal Speech, Sensation Intact, Other (Weaknee BLES) Results Lab Laboratory Tests 12/20/17 06:10 A/P-Cardiology Admission Diagnosis Foot ulcer Generalized weakness and debility Chronic venous insufficiency Diabetes mellitus Peripheral arterial disease Assessment/Plan Nonhealing foot ulcers, history of venous stasis ulcers. GEETA was abnormal, ultrasound of the arterial was nondiagnostic, CT showed patent artery with anterior tibial patent down to the foot. The posterior tibial and peroneal arteries were not well visualized. I discussed the management plan with Dr. Salgado and we will try compression therapy for her venous stasis ulcers. Will continue monitoring her status closely Generalized weakness and loss of energy, receiving physical therapy. Improving slowly. Low grade fever- resolved, managed by primary care physician Shortness of breath on exertion, hypoxemia, Dr. Alas Is consulted Chronic kidney disease, started on IV fluid and monitor renal function. Hypertension, continue to monitor. Hyperlipidemia, monitor lipids. Anemia, myelodysplastic, has been followed by Dr. Troncoso. Morbid obesity, BMI is 44, discussed weight loss and exercise. History of COPD, obstructive sleep apnea using C Pap. Clinical Quality Measures DVT/VTE Risk/Contraindication: Risk Factor Score Per Nursin RFS Level Per Nursing on Admit: 4+=Very High ARIANA BARROS MD Dec 20, 2017 13:28
--- NOTE | 2017-12-20 14:35 | Therapy Group Daily Note ---
Therapy Daily Group Note Patient Education Topic Home Safety, Fall Prevention Exercises LE Seated Exercise, UE Exercise Other/Notes Pt was an active participant in OT/PT group. She introduced herself and shared her favorite thing about . She contributed to education/discussion on falls and fall prevention and identified ways to make her environment safer. She also led the group in a seated UE or LE exercise. She walked back to her room with SBA, FWW and was left up in bed, all needs met. Start Time: 13:00 Stop Time: 14:15 Total Billed Treatment Time: 75 Total Billed Treatment visit, 75 minutes group ASHLI MEZA OT Dec 20, 2017 14:35
--- NOTE | 2017-12-20 14:59 | Occupational Ther Daily Note ---
OT Current Status-Daily Note Subjective Pt seen in room, up in bed, agreeable to OT. No pain mentioned except she took meds for "my knees were talking to me". Appearance Alert, cooperative Mental Status/Objective Functional [place] Measure 0=Not Assessed/NA 4=Minimal Assistance 1=Total Assistance 5=Supervision or Setup 2=Maximal Assistance 6=Modified [place] 3=Moderate Assistance 7=Complete [place] ADL-Treatment She was able to swing legs over EOB and get up from supine to sit EOB with SBA and HOB elevated. Sit to stand SBA, FWW with bed raised up. Walked to bathroom slowly with SBA, FWW and able to get on/off BSC over toilet with mod I, FWW, grab bar. Managed clothing down and hygiene but completed undressing lower body for shower. Walked with SBA, FWW to shower and able to get in stall and on shower bench with SBA, using FWW and grab bar. Pt completed undressing upper body and washed/dried all parts with mod I, turning water on and off and retrieving towel from bar. She dressed upper body with setup but did not dress lower body due to planned dressing changes on lower legs. She was able to get manju wraps and dressings off LEs and washed wound areas with clean water. She walked back to bed with SBA, FWW and needed help getting her legs into bed. Wound on R leg drains during walking. Pt left up in bed for dressing change, all needs met. All ADLs took longer than usual and ADLs limited by increased fluid in LEs. Functional [place] Measure 0=Not Assessed/NA 4=Minimal Assistance 1=Total Assistance 5=Supervision or Setup 2=Maximal Assistance 6=Modified [place] 3=Moderate Assistance 7=Complete IndependenceIRFPAI Quality Coding Scale 6 Independent with activity with or without an assistive device 5 Patient requires set up or clean up by helper. Patient completes activity by themselves 4 Supervision or touching assist (CGA). [place] provide cues , steadying assist 3 The helper provides less than half the effort to complete the activity 2 The helper provides more than half the effort to complete the activity 1 Dependent. The helper does all the effort to complete an activity 7 Patient refused to complete or attempt activity 9 The patient did not perform the activity before the current illness or injury 88 Not attempted due to Medical conditions or safety concerns Bathing (FIM): 6 (Mod I. Shower bench, grab bars, FWW, hand held shower) Upper Body (FIM): 5 (setup) Toileting (FIM): 5 Toilet/Commode Transfer (FIM): 6 (BSC) Shower Transfer(FIM): 5 (SBA getting in and out of shower and on/off shower bench) Education OT Patient Education: Progress toward Goal/Update tx plan, Purpose of tx/ functional activities, Safety issues, Transfer techniques Teaching Recipient: Patient Teaching Methods: Demonstration, Discussion Response to Teaching: Verbalize Understanding, Return Demonstration, Reinforcement Needed OT Short Term Goals Short Term Goals Time Frame: Dec 12, 2017 Toileting(FIM): 5 Transfers (B,C,W/C) (FIM): 4 (met) Toilet/Commode Transfer(FIM): 5 Additional Short Term Goals: 1-Demonstrate ADL Tasks, 2-Verbalize Understanding , 3-ImproveStrength/Yimi 1=Demonstrate adherence to instructed precautions during ADL tasks. 2=Patient will verbalize/demonstrate understanding of assistive devices/ modifications for ADL. 3=Patient will improve strength/tolerance for activity to enable patient to perform ADL's. OT Mcfp Goals Mcfp Goals Time Frame: Dec 26, 2017 Eating (FIM): 7 Eating (QC): 6 Groomin Oral Hygiene (QC): 6 Bathing(FIM): 6 Shower/Bathe Self (QC): 6 Upper Body Dressing(FIM): 6 Upper Body Dressing (QC): 6 Lower Body Dressing(FIM): 6 Lower Body Dressing (QC): 6 On/Off Footwear (QC): 6 Toileting(FIM): 6 Toileting Hygiene (QC): 6 Toilet/Commode Transfer(FIM): 6 Toilet/Commode Transfer (QC): 6 Shower Transfer(FIM): 6 Additional Goals: 1-Demonstrate ADL Tasks, 2-Verbalize Understanding, 3- ImproveStrength/Yimi 1=Demonstrate adherence to instructed precautions during ADL tasks. 2=Patient will verbalize/demonstrate understanding of assistive devices/ modifications for ADL. 3=Patient will improve strength/tolerance for activity to enable patient to perform ADL's. OT Education/Plan Problem List/Assessment Pt would benefit from skilled OT to increase her independence in basic self care to allow her to safely return to her home Discharge Recommendations Plan/Recommendations: Continue POC Treatment Plan/Plan of Care Patient would benefit from OT for education, treatment and training to promote independence in ADL's, mobility, safety and/or upper extremity function for ADL' s. Plan of Care: ADL Retraining, Functional Mobility, Group Exercise/Act as Ind ( education, exercise, functional activity, activity tolerance, functional mobility, socialization), UE Funct Exercise/Act, UE Neuromus Re-Ed/Coord Treatment Duration: Dec 26, 2017 Frequency: At least 5 of 7 days/Wk (IRF) Estimated Hrs Per Day: 1.5 hours per day Agreement: Yes Rehab Potential: Good Time/GCodes Start Time: 08:30 Stop Time: 09:55 Total Time Billed (hr/min): 75 Billed Treatment Time visit, 75 minutes ADL (10 minutes time out for RT treatment) ASHLI MEZA OT Dec 20, 2017 14:59
[2017-12-20] MEDS: RT-ALBUTEROL/IPRATROPIUM 3 ML (DUONEB) VIAL INH SCH ×2 (15:57→19:10)
[2017-12-20 17:29] VITALS: BP 134/68
--- NOTE | 2017-12-20 19:09 | Progress Note-Hospitalist ---
Subjective HPI/CC On Admission Date Seen by Provider: Dec 20, 2017 Time Seen by Provider: 10:40 CC: Medical management during inpatient rehabilitation stay for debility HPI: This is a 72-year-old white female clinic patient of Dr. Mccartney who presented to the inpatient rehabilitation facility when she requested help with lower extremity lymphedema and ulcers could no longer make it at home. Adeline at the cancer center arranged this. Dr. Salgado is managing her lower [place] the wounds with a and D ointment and Yonny wrappings. Ultrasound was completed yesterday and Dr. Salgado was pleased with the results. 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 Subjective/Events-last exam Pt. reports some chest tightness in AM which resovles after albuterol breating treatment. Minimal sputum no fever or chills. She reports increased stamina and improving transfers and ambulation. Objective Exam Vital Signs Vital Signs Date Time Temp Pulse Resp B/P (MAP) Pulse Ox O2 Delivery O2 Flow Rate FiO2 12/20/17 17:29 98.0 110 20 134/68 (90) 92 Room Air Capillary Refill : Less Than 3 Seconds General Appearance: No Apparent Distress, Chronically ill, Obese Respiratory: Chest Non Tender, Lungs Clear, Normal Breath Sounds, No Accessory Muscle Use, No Respiratory Distress Cardiovascular: Regular Rate, Rhythm, No Edema, No Gallop, No JVD, No Murmur, Normal Peripheral Pulses Gastrointestinal: Normal Bowel Sounds, No Organomegaly, No Pulsatile Mass, Non Tender, Soft Extremity: Other (decreasing pedal edema 1 plus) Results/Procedures Lab Laboratory Tests 12/20/17 06:10 Patient resulted labs reviewed. Assessment/Plan Assessment and Plan Assess & Plan/Chief Complaint 1. Multifactorial debility improving complicated by obesity, myelodysplastic anemia in addition to iron deficiency, OA of the knees and lower extremity ulcerations with known venous insufficiency. . 2. Myelodysplastic anemia somewhat responsive to erythropoietin with past iron deficiency anemia as well per this patient's report last dose of IV iron was in March. Iron studies are compatible significant iron deficiency anemia with low transference saturation and low iron level. Ferritin level likely mildly elevated only do to its acute phase reactant properties from inflammation for her chronic venous insufficiency ulcers. Iron sucrose not available so we'll give dextran variety 200 mg every other day 5 doses last dose this saturday. Patient's completed 2 doses without difficulty. HGB 7.9 but to early to technical sales director Fe replacement effect.. 3. Type II diabetes mellitus with weight loss is been under good control. Patient off pioglitazone due to edema and will continue to hold metformin as blood sugars have been normal. 4. CT angiography lower extremities was not ideal but reasonable revealing no significant obstruction.. 5. Mild bronchitis likely viral in etiology improving tenative DC next Saturday. Clinical Quality Measures DVT/VTE Risk/Contraindication: Risk Factor Score Per Nursin RFS Level Per Nursing on Admit: 4+=Very High JOHN MCCARTNEY MD Dec 20, 2017 19:09
[2017-12-20] MEDS: MONTELUKAST 10 MG (SINGULAIR) TAB PO SCH (20:05)
[2017-12-20] MEDS: ATORVASTATIN 40 MG (LIPITOR) TABLET PO SCH (20:05)
[2017-12-21] MEDS: RT-ALBUTEROL/IPRATROPIUM 3 ML (DUONEB) VIAL INH SCH ×4 (03:11→19:10)
[2017-12-21 05:31] VITALS: BP 118/55
[2017-12-21] MEDS: CALCIUM CARBONATE 600 MG (CALCARB) TAB PO SCH (06:34)
[2017-12-21] MEDS: VITAMIN D3 1,000 UNITS (CHOLECALCIFEROL) TABLET PO SCH (06:34)
[2017-12-21] MEDS: CYANOCOBALAMIN 1,000 MCG (VITAMIN B-12) TABLET PO SCH (06:34)
[2017-12-21] MEDS: ASCORBIC ACID (VIT C) 500 MG TABLET PO SCH (06:34)
[2017-12-21] MEDS: FOLIC ACID 1 MG TAB PO SCH (06:35)
[2017-12-21] MEDS: CATHETER FLUSH 10 ML SYR IV SCH ×3 (06:35→20:16)
[2017-12-21] MEDS: RT-ADVAIR HFA 115/21 MCG PER PUFF IH SCH ×2 (07:11→19:10)
--- NOTE | 2017-12-21 07:49 | PM & R (SOAP) Progress Note ---
Subjective This was a face to face visit with the patient. Date Seen by Provider: Dec 21, 2017 Time Seen by Provider: 07:15 Subjective/Events-last exam Patient was seen in her room this AM Patient min assist for transfers Completing course of Iron sucrose for chronic anemia HGB 7.9.Left arm a bit swollen and erythematous near prior IV site in antecubital region Date Identified: Dec 21, 2017 Time Identified: 07:15 Medication Intervention: Completing course of Iron sucrose Review of Systems Musculoskeletal: arm pain Objective Physician Exam Last Set of Vital Signs Vital Signs Date Time Temp Pulse Resp B/P (MAP) Pulse Ox O2 Delivery O2 Flow Rate FiO2 12/21/17 07:11 92 Room Air 12/21/17 05:31 97.9 111 20 118/55 (76) Capillary Refill : Less Than 3 Seconds I&O Intake and Output 12/20/17 23:59 Intake Total 1100 ml Balance 1100 ml Intake Oral 1100 ml # Voids 5 General: Alert, Oriented X3, Cooperative, No Acute Distress HEENT: Atraumatic, PERRLA, EOMI, Mucous Memb Moist/[place] Neck: Supple, No JVD Lungs: Clear to Auscultation Heart: Regular Rate, Normal S1, Normal S2 Abdomen: Normal Bowel Sounds, Soft, No Tenderness, Other (obese) Extremities: Other (Chronic edema with wounds both shins RT >left) Skin: Other (Chronic wounds both legs RT > left) Neuro: Normal Speech, Sensation Intact, Other (Weaknee BLES) Other physical findings Erythema left antecubital region Results Lab Data Laboratory Tests 12/18/17 15:09: Glucometer 143H 12/19/17 06:19: Glucometer 97 12/19/17 16:14: Glucometer 116H 12/20/17 04:45: Glucometer 96 12/20/17 06:10: White Blood Count 6.1, Red Blood Count 2.68L, Hemoglobin 7.9L, Hematocrit 25L, Mean Corpuscular Volume 94, Mean Corpuscular Hemoglobin 30, Mean Corpuscular Hemoglobin Concent 31L, Red Cell Distribution Width 16.5H, Platelet Count 339, Mean Platelet Volume 8.4, Sodium Level 139, Potassium Level 4.3, Chloride Level 111H, Carbon Dioxide Level 22, Anion Gap 6, Blood Urea Nitrogen 11, Creatinine 0.78, Estimat Glomerular Filtration Rate > 60, BUN/Creatinine Ratio 14, Glucose Level 91, Calcium Level 8.1L, Corrected Calcium 9.2, Total Bilirubin 0.2, Aspartate Amino Transf (AST/SGOT) 22, Alanine Aminotransferase (ALT/SGPT) 12, Alkaline Phosphatase 134, Total Protein 5.3L, Albumin 2.6L 12/20/17 15:52: Glucometer 100 12/21/17 05:11: Glucometer 105 Assessment/Plan Assessment and Plan General debil secondary to chronic wounds both legs DR Salgado following Local swelling erythema by prior IV site left ARM as per above Chronic anemia followed by Hem on Aranesp equivalent thru [facility] and completing course of Iron Sucrose Low grade fever resolved Hypotension with HX of HTN Benicar held Acute exacerbation of COPD treated DM controlled DVT Prophylaxis lovenox held due to anemia and BRB per rectum Morbid obesity with ADITI on CPAP COPD Advair and SVN treatmenst ordered CKD Plan Continue PT/OT/Wound care Warm Compress to left arm Discharge remains set for next Saturday12-24-17 will confirm with SW F/U with DR Salgado and PCP and Cancer Center Physician Monitor left arm/warm packs as needed Co-Morbidities that are continuing to impact the rehab process: (include details ) JANNET GOTTI MD Dec 21, 2017 07:49
[2017-12-21] MEDS: IRON SUCROSE 200 MG/10 ML (VENOFER) VIAL IV SCH (08:41)
[2017-12-21] MEDS: ACETAMINOPHEN 500 MG TAB (TYLENOL) PO PRN (10:14)
--- NOTE | 2017-12-21 12:28 | Physical Therapy Daily Note ---
PT Daily Note-Current Subjective Pt. in bed and agrees to therapy. Says she will need to use the bathroom. During session, pt. requests Tylenol due to "arthritic knees", rates pain 09/01. Nurse notified. Transfers Functional [place] Measure 0=Not Assessed/NA 4=Minimal Assistance 1=Total Assistance 5=Supervision or Setup 2=Maximal Assistance 6=Modified [place] 3=Moderate Assistance 7=Complete IndependenceIRFPAI Quality Coding Scale 6 Independent with activity with or without an assistive device 5 Patient requires set up or clean up by helper. Patient completes activity by themselves 4 Supervision or touching assist (CGA). [place] provide cues , steadying assist 3 The helper provides less than half the effort to complete the activity 2 The helper provides more than half the effort to complete the activity 1 Dependent. The helper does all the effort to complete an activity 7 Patient refused to complete or attempt activity 9 The patient did not perform the activity before the current illness or injury 88 Not attempted due to Medical conditions or safety concerns Transfers (B, C, W/C) (FIM): 4 Supine to/from Sit: 5 Sit to Stand (QC): 4 toilet transfer: CGA. Assist to don brief and pants while sitting at toilet. Dependent for pericare. Weight Bearing Right Lower Extremity: Right Full Weight Bearing Left Lower Extremity: Left Full Weight Bearing Gait Training Does the Patient Walk?: Yes Gait (FIM): 2 Distance (FIM): 4=857-46 ft Distance: 2x 50 ft Gait Level of Assist: 4 Gait Persons Needed: 1 Gait Assistive Device: FWW very slow gait and needs 1 seated rest period after 50 ft ambulation. Pt.'s O2 sats during seated rest at 84% initially and increased to >93% with 2 minutes of seated rest on room air. Treatments toileting, transfers, gait Assessment Current Status: Good Progress, Fair Progress Pt. is progressing slowly with therapy and fatigues quickly with mobility. Pt. returned to bedside chair with call light and all needs met. PT Short Term Goals Short Term Goals Time Frame: Dec 12, 2017 Transfers (B,C,W/C) (FIM): 4 (met) Gait (FIM): 2 Gait Distance Comment: 100' Gait Level of Assist: 4 Gait Assistive Device: FWW Wheelchair Distance: 60',120' PT Molded Goods Embossing Press Operator Goals Snf Goals PT Molded Goods Embossing Press Operator Goals Time Frame: Dec 26, 2017 Transfers (B,C,W/C) (FIM): 5 Sit to Lying (QC): 4 Lying-Sitting on Side/Bed(QC): 4 Sit to Stand (QC): 4 Rollin Roll Left to Right (QC): 4 Chair/[id number]-Qlmxt Xfer(QC): 4 Car Transfer (QC): 4 Does the Patient Walk: Yes Gait (FIM): 5 Distance: 150' Walk 10 feet (QC): 4 Walk 10ft-Uneven Surface(QC): 4 Walk 50ft with 2 Turns (QC): 4 Walk 150 ft (QC): 4 Gait Level of Assist: 5 Gait Assistive Device: FWW Stairs (FIM): 2 # of Steps: 4 1 Step (curb) (QC): 4 4 Steps (QC): 4 12 Steps (QC): 4 Stairs Level Of Assist: 4 PT Plan Treatment/Plan Treatment Plan: Continue Plan of Care Treatment Plan: Bed Mobility, Concurrent Therapy, Education, Functional Activity Yimi, Functional Strength, Group Therapy, Gait, Safety, Therapeutic Exercise, Transfers Treatment Duration: Dec 26, 2017 Frequency: Modified Program (IRF) Estimated Hrs Per Day: 1.5 hours per day Patient and/or Family Agrees t: Yes Time/GCodes Time In: 940 Time Out: 1020 Total Billed Treatment Time: 40 Total Billed Treatment 1, FA 25', GT 15' ZACARIAS BARKER PT Dec 21, 2017 12:28
[2017-12-21 17:21] VITALS: BP 137/76
[2017-12-21] MEDS: ATORVASTATIN 40 MG (LIPITOR) TABLET PO SCH (20:16)
[2017-12-21] MEDS: MONTELUKAST 10 MG (SINGULAIR) TAB PO SCH (20:16)
[2017-12-22] MEDS: RT-ALBUTEROL/IPRATROPIUM 3 ML (DUONEB) VIAL INH SCH ×4 (02:43→18:39)
[2017-12-22 06:07] VITALS: BP 112/54
[2017-12-22] MEDS: ASCORBIC ACID (VIT C) 500 MG TABLET PO SCH (06:38)
[2017-12-22] MEDS: FOLIC ACID 1 MG TAB PO SCH (06:38)
[2017-12-22] MEDS: VITAMIN D3 1,000 UNITS (CHOLECALCIFEROL) TABLET PO SCH (06:38)
[2017-12-22] MEDS: CYANOCOBALAMIN 1,000 MCG (VITAMIN B-12) TABLET PO SCH (06:38)
[2017-12-22] MEDS: CALCIUM CARBONATE 600 MG (CALCARB) TAB PO SCH (06:38)
[2017-12-22] MEDS: CATHETER FLUSH 10 ML SYR IV SCH ×3 (06:39→22:59)
[2017-12-22] MEDS: ACETAMINOPHEN 500 MG TAB (TYLENOL) PO PRN (08:42)
--- NOTE | 2017-12-22 08:44 | Cardiology Progress Note ---
Subjective Date Seen by Provider: Dec 22, 2017 Time Seen by Provider: 08:43 Subjective/Events-last exam Patient is in bed, no new complaint, no chest pain Review of Systems General: No Chills, No Night Sweats, No Fatigue, No Malaise, No Appetite, No Other HEENT: No Head Aches, No Visual Changes, No Eye Pain, No Ear Pain, No Dysphasia , No Sinus Congestion, No Post Nasal Drip, No Sore Throat, No Other Pulmonary: Dyspnea; No Cough, No Pleuritic Chest Pain, No Other Cardiovascular: No: Chest Pain, Palpitations, Orthopnea, Paroxysmal Noc. Dyspnea, Edema, Lt Headedness, Other Objective-Cardiology Exam Last Set of Vital Signs Vital Signs 12/22/17 06:07 Temp 98.4 Pulse 112 Resp 20 B/P (MAP) 112/54 (73) Pulse Ox 93 O2 Delivery Room Air Capillary Refill : Less Than 3 Seconds I&O Intake and Output 12/22/17 00:00 Intake Total 1220 ml Balance 1220 ml Intake Oral 1220 ml # Voids 4 # Urine Diapers 2 # Bowel Movements 1 General: Alert, Oriented X3, Cooperative, No Acute Distress HEENT: Atraumatic, PERRLA, EOMI, Mucous Memb Moist/[place] Neck: Supple, No JVD Lungs: Clear to Auscultation Heart: Regular Rate, Normal S1, Normal S2 Abdomen: Normal Bowel Sounds, Soft, No Tenderness, Other (obese) Extremities: No Clubbing, Other (Chronic edema with wounds both shins RT >left) Skin: Other (Chronic wounds both legs RT > left) Neuro: Normal Speech, Sensation Intact, Other (Weaknee BLES) Results Lab Laboratory Tests Test 12/21/17 16:15 12/22/17 05:12 Range/Units Glucometer 140 H 111 H 70-110 MG/DL A/P-Cardiology Admission Diagnosis Foot ulcer Generalized weakness and debility Chronic venous insufficiency Diabetes mellitus Peripheral arterial disease Assessment/Plan Nonhealing foot ulcers, history of venous stasis ulcers. GEETA was abnormal, ultrasound of the arterial was nondiagnostic, CT showed patent artery with anterior tibial patent down to the foot. The posterior tibial and peroneal arteries were not well visualized. I discussed the management plan with Dr. Salgado and we will try compression therapy for her venous stasis ulcers. Will continue monitoring her status closely Generalized weakness and loss of energy, receiving physical therapy. Improving slowly. Low grade fever- resolved, managed by primary care physician Shortness of breath on exertion, hypoxemia, Dr. Alas Is consulted Chronic kidney disease, started on IV fluid and monitor renal function. Hypertension, continue to monitor. Hyperlipidemia, monitor lipids. Anemia, myelodysplastic, has been followed by Dr. Troncoso. Morbid obesity, BMI is 44, discussed weight loss and exercise. History of COPD, obstructive sleep apnea using C Pap. Clinical Quality Measures DVT/VTE Risk/Contraindication: Risk Factor Score Per Nursin RFS Level Per Nursing on Admit: 4+=Very High ARIANA BARROS MD Dec 22, 2017 08:44
[2017-12-22] MEDS: RT-ADVAIR HFA 115/21 MCG PER PUFF IH SCH ×2 (10:01→18:39)
[2017-12-22 15:41] VITALS: BP 130/72
[2017-12-22] MEDS: MONTELUKAST 10 MG (SINGULAIR) TAB PO SCH (21:34)
[2017-12-22] MEDS: ATORVASTATIN 40 MG (LIPITOR) TABLET PO SCH (21:34)
[2017-12-23] MEDS: RT-ALBUTEROL/IPRATROPIUM 3 ML (DUONEB) VIAL INH SCH ×4 (02:17→19:23)
[2017-12-23 05:54] VITALS: BP 135/73
[2017-12-23] MEDS: CATHETER FLUSH 10 ML SYR IV SCH ×3 (06:36→22:05)
[2017-12-23] MEDS: ASCORBIC ACID (VIT C) 500 MG TABLET PO SCH (06:37)
[2017-12-23] MEDS: FOLIC ACID 1 MG TAB PO SCH (06:37)
[2017-12-23] MEDS: VITAMIN D3 1,000 UNITS (CHOLECALCIFEROL) TABLET PO SCH (06:37)
[2017-12-23] MEDS: CALCIUM CARBONATE 600 MG (CALCARB) TAB PO SCH (06:37)
[2017-12-23] MEDS: CYANOCOBALAMIN 1,000 MCG (VITAMIN B-12) TABLET PO SCH (06:37)
[2017-12-23] MEDS: RT-ADVAIR HFA 115/21 MCG PER PUFF IH SCH ×2 (06:58→19:23)
--- NOTE | 2017-12-23 09:07 | Cardiology Progress Note ---
Subjective Date Seen by Provider: Dec 23, 2017 Time Seen by Provider: 09:05 Subjective/Events-last exam Patient is feeling better, still tachycardic, appear to be dyspneic at rest laying down in bed, had a long discussion about the need for chronic oxygen use Review of Systems General: No Chills, No Night Sweats; Fatigue; No Malaise, No Appetite, No Other HEENT: No Head Aches, No Visual Changes, No Eye Pain, No Ear Pain, No Dysphasia , No Sinus Congestion, No Post Nasal Drip, No Sore Throat, No Other Pulmonary: Dyspnea; No Cough, No Pleuritic Chest Pain, No Other Cardiovascular: Edema; No: Chest Pain, Palpitations, Orthopnea, Paroxysmal Noc. Dyspnea, Lt Headedness, Other Objective-Cardiology Exam Last Set of Vital Signs Vital Signs 12/23/17 12/23/17 05:54 06:58 Temp 97.2 Pulse 106 Resp 20 B/P (MAP) 135/73 (93) Pulse Ox 91 O2 Delivery Room Air Capillary Refill : Less Than 3 Seconds I&O Intake and Output 12/23/17 00:00 Intake Total 2590 ml Balance 2590 ml Intake Oral 2590 ml # Voids 4 # Urine Diapers 2 General: Alert, Oriented X3, Cooperative, No Acute Distress HEENT: Atraumatic, PERRLA, EOMI, Mucous Memb Moist/[place] Neck: Supple, No JVD Lungs: Clear to Auscultation Heart: Regular Rate, Normal S1, Normal S2 Abdomen: Normal Bowel Sounds, Soft, No Tenderness, Other (obese) Extremities: No Clubbing, Other (Chronic edema with wounds both shins RT >left) Skin: No Rashes, Other (Chronic wounds both legs RT > left) Neuro: Normal Speech, Sensation Intact, Other (Weaknee BLES) Results Lab Laboratory Tests Test 12/22/17 15:38 12/23/17 05:19 Range/Units Glucometer 230 H 154 H 70-110 MG/DL A/P-Cardiology Admission Diagnosis Foot ulcer Generalized weakness and debility Chronic venous insufficiency Diabetes mellitus Peripheral arterial disease Assessment/Plan Nonhealing foot ulcers, history of venous stasis ulcers. GEETA was abnormal, ultrasound of the arterial was nondiagnostic, CT showed patent artery with anterior tibial patent down to the foot. The posterior tibial and peroneal arteries were not well visualized. I discussed the management plan with Dr. Salgado and we will try compression therapy for her venous stasis ulcers. Will continue monitoring her status closely Generalized weakness and loss of energy, receiving physical therapy. Improving slowly. Low grade fever- resolved, managed by primary care physician Shortness of breath on exertion, hypoxemia, patient will need persistent chronic oxygen therapy, she is dyspneic at rest and having sinus tachycardia probably secondary to hypoxemia. Sinus tachycardia, persistent, probably secondary to hypoxemia. I will use low- dose beta blockers and evaluate her tolerance and response Chronic kidney disease, started on IV fluid and monitor renal function. Hypertension, continue to monitor. Hyperlipidemia, monitor lipids. Anemia, myelodysplastic, has been followed by Dr. Troncoso. Morbid obesity, BMI is 44, discussed weight loss and exercise. History of COPD, obstructive sleep apnea using C Pap. Clinical Quality Measures DVT/VTE Risk/Contraindication: Risk Factor Score Per Nursin RFS Level Per Nursing on Admit: 4+=Very High ARIANA BARROS MD Dec 23, 2017 09:07
--- NOTE | 2017-12-23 10:26 | Physical Therapy Daily Note ---
PT Daily Note-Current Subjective Pt. in bed and expresses she is frustrated that she has been put on O2 and that she has different Drs than she thought were in charge of her care. This TYPEWRITER MECHANIC and others attempting to explain the circumstances. pt. states she still doesnt really understand Pain Numeric Pain Scale: 2 Location: Left (and right ) Location Body Site: Calf Pain Description: Pressure Mental Status Patient Orientation: Person, Place, Time, Situation Attachments: Oxygen (2L) Transfers Functional [place] Measure 0=Not Assessed/NA 4=Minimal Assistance 1=Total Assistance 5=Supervision or Setup 2=Maximal Assistance 6=Modified [place] 3=Moderate Assistance 7=Complete IndependenceIRFPAI Quality Coding Scale 6 Independent with activity with or without an assistive device 5 Patient requires set up or clean up by helper. Patient completes activity by themselves 4 Supervision or touching assist (CGA). [place] provide cues , steadying assist 3 The helper provides less than half the effort to complete the activity 2 The helper provides more than half the effort to complete the activity 1 Dependent. The helper does all the effort to complete an activity 7 Patient refused to complete or attempt activity 9 The patient did not perform the activity before the current illness or injury 88 Not attempted due to Medical conditions or safety concerns Transfers (B, C, W/C) (FIM): 3 Scootin Rollin Roll Left to Right (QC): 2 Supine to/from Sit: 4 Sit to/from Stand: 3 Sit to Lying (QC): 2 Sit to Stand (QC): 2 Chair/Qcp-xj-Zggud Xfer(QC): 2 Bed to/from Chair: 3 Car Transfer (QC): 88 (unsafe to trial this date) pt. with increased edema this date causing more difficulty breathing and moving. Pt. utilized walker beside Rx table which this TYPEWRITER MECHANIC held down firmly so pt. could use it to simulate a bed cane (like Home) and a SPC to use to lift her own LLE in to the bed. This process taking much time with increased dyspnea noted. Sit to stands were complicated by pts. hips wider and very firm secondary to pitting edema even up in her chest area. Again this TYPEWRITER MECHANIC held down chair and FWW as pt needed to pull on FWW and needed assist to get up b/c chair stuck to her bottom at the arms of the chair Weight Bearing Right Lower Extremity: Right Full Weight Bearing Left Lower Extremity: Left Full Weight Bearing Gait Training Does the Patient Walk?: Yes Gait (FIM): 2 Distance (FIM): 3=220-31 ft (70ft, 15ft) Walk 10 feet (QC): 3 Walk 50 ft with 2 Turns(QC): 3 Walking 10ft/uneven surface-QC: 2 Gait Level of Assist: 3 Gait Persons Needed: 1 Gait Assistive Device: FWW gait with new complication this date as pt is now on @L O2 radio time sales supervisor and requires assist to manage the tank and or the tubing, pt is heavy wt bearing on FWW . After gait 70 feet to gym pt. moderately SOB, on 2L O2 with O2 sats 91% and HR 147BPM Stair Training Stairs (FIM): 88 pt. comments that she cannot attempt even one singel step this date. This TYPEWRITER MECHANIC concurs Balance Picking up an Object (QC): 88 Exercises Supine Ex: Ankle pumps, Quad Set, Heel Slides (assist), Hip abd/add Supine Reps: 10 Seated Therapy Exercises: Ankle pumps, Sit to stand, Long arc quads Seated Reps: 12 Treatments toileted with max assist to doff and linda clean brief and linda robe. Pts. edema in abdomen and LEs makes bending to manage this very difficult Assessment Current Status: Fair Progress Pt. dependent for all secondary to edema and O2 FT and SOB, pitting edema and cough, all activity takes much extra time PT Short Term Goals Short Term Goals Time Frame: Dec 12, 2017 Transfers (B,C,W/C) (FIM): 4 (met) Gait (FIM): 2 Gait Distance Comment: 100' Gait Level of Assist: 4 Gait Assistive Device: FWW Wheelchair Distance: 60',120' PT Intermediate Goals Intermediate Goals PT Commercial Attorney Goals Time Frame: Dec 26, 2017 Transfers (B,C,W/C) (FIM): 5 Sit to Lying (QC): 4 Lying-Sitting on Side/Bed(QC): 4 Sit to Stand (QC): 4 Rollin Roll Left to Right (QC): 4 Chair/Qug-hh-Zdjdn Xfer(QC): 4 Car Transfer (QC): 4 Does the Patient Walk: Yes Gait (FIM): 5 Distance: 150' Walk 10 feet (QC): 4 Walk 10ft-Uneven Surface(QC): 4 Walk 50ft with 2 Turns (QC): 4 Walk 150 ft (QC): 4 Gait Level of Assist: 5 Gait Assistive Device: FWW Stairs (FIM): 2 # of Steps: 4 1 Step (curb) (QC): 4 4 Steps (QC): 4 12 Steps (QC): 4 Stairs Level Of Assist: 4 PT Plan Treatment/Plan Treatment Plan: Continue Plan of Care Treatment Plan: Bed Mobility, Concurrent Therapy, Education, Functional Activity Yimi, Functional Strength, Group Therapy, Gait, Safety, Therapeutic Exercise, Transfers Treatment Duration: Dec 26, 2017 Frequency: Modified Program (IRF) Estimated Hrs Per Day: 1.5 hours per day Patient and/or Family Agrees t: Yes Safety Risks/Education Patient Education: Gait Training, Transfer Techniques, Correct Positioning, Disease Process, Safety Issues Teaching Recipient: Patient Teaching Methods: Demonstration, Discussion Response to Teaching: Verbalize Understanding, Return Demonstration, Reinforcement Needed Time/GCodes Time In: 910 Time Out: 1010 Total Billed Treatment Time: 60 Total Billed Treatment 1,FA40m,GT20m G Codes Necessary: WERNER Leiva TYPEWRITER MECHANIC Dec 23, 2017 10:26
--- NOTE | 2017-12-23 11:47 | Occupational Ther Daily Note ---
OT Current Status-Daily Note Subjective Pt seen in room, up in recliner, agreeable to OT. No pain mentioned. Pt now on continuous O2 at 2L/min nc Appearance Alert, cooperative, discouraged because of addition of O2 Mental Status/Objective Functional [place] Measure 0=Not Assessed/NA 4=Minimal Assistance 1=Total Assistance 5=Supervision or Setup 2=Maximal Assistance 6=Modified [place] 3=Moderate Assistance 7=Complete [place] Attachments: Saline Lock (covered) ADL-Treatment She has been feeding herself without difficulty, able to open packages, cut up food, get a drink, normal amount of time. Got up from recliner with SBA but with chair elevated and walked to bathroom, with pt educ on managing O2 tubing while walking and while dressing/bathing. On/off BSC over toilet with SBA, managing clothing very slowly, using dressing stick to take pants off, FWW. Pt educ use of toilet tongs and she was able to wipe her bottom. Help to remove manju wraps and dressings on lower legs. Walked to shower and got in/out and on/ off shower bench with SBA, grab bars. Washed and dried all parts with setup, SBA to dry bottom. Dressed upper body with setup but did not dress lower body due to open wounds bilat lower legs (R one still seeps fluid while walking. Pt walked slowly with FWW to bed, OT managing O2 tank. Needed just a little help to get legs into bed. Pt left up in bed, 4 rails up, O2 in place, for LE dressings. Functional [place] Measure 0=Not Assessed/NA 4=Minimal Assistance 1=Total Assistance 5=Supervision or Setup 2=Maximal Assistance 6=Modified [place] 3=Moderate Assistance 7=Complete IndependenceIRFPAI Quality Coding Scale 6 Independent with activity with or without an assistive device 5 Patient requires set up or clean up by helper. Patient completes activity by themselves 4 Supervision or touching assist (CGA). [place] provide cues , steadying assist 3 The helper provides less than half the effort to complete the activity 2 The helper provides more than half the effort to complete the activity 1 Dependent. The helper does all the effort to complete an activity 7 Patient refused to complete or attempt activity 9 The patient did not perform the activity before the current illness or injury 88 Not attempted due to Medical conditions or safety concerns Eating (FIM): 7 (Opens packages, cuts food, gets a drink with no help. No dentures, normal amount of time) Eating (QC): 6 Bathing (FIM): 5 (SBA to dry bottom. Washed and dried all parts, using shower bench, grab bars, hand held shower. Setup) Shower/Bathe Self (QC): 4 Upper Body (FIM): 5 (setup) Upper Body Dressing (QC): 5 Toileting (FIM): 5 (Slowly but managed clothing and hygiene, SBA. Pt educ use of toilet tongs, with return demo) Toileting Hygiene (QC): 4 (SBA) Toilet/Commode Transfer (FIM): 5 (SBA getting on/off BSc over toilet, grab bars , FWW) Shower Transfer(FIM): 5 (SBA getting in/out of shower stall) Education OT Patient Education: Modified ADL techniques, Progress toward Goal/Update tx plan, Purpose of tx/functional activities, Safety issues, Transfer techniques Teaching Recipient: Patient Teaching Methods: Demonstration, Discussion Response to Teaching: Verbalize Understanding, Return Demonstration, Reinforcement Needed OT Short Term Goals Short Term Goals Time Frame: Dec 12, 2017 Toileting(FIM): 5 Transfers (B,C,W/C) (FIM): 4 (met) Toilet/Commode Transfer(FIM): 5 Additional Short Term Goals: 1-Demonstrate ADL Tasks, 2-Verbalize Understanding , 3-ImproveStrength/Y[place] 1=Demonstrate adherence to instructed precautions during ADL tasks. 2=Patient will verbalize/demonstrate understanding of assistive devices/ modifications for ADL. 3=Patient will improve strength/tolerance for activity to enable patient to perform ADL's. OT Program Development Specialist Goals Prison Goals Time Frame: Dec 26, 2017 Eating (FIM): 7 Eating (QC): 6 Groomin Oral Hygiene (QC): 6 Bathing(FIM): 6 Shower/Bathe Self (QC): 6 Upper Body Dressing(FIM): 6 Upper Body Dressing (QC): 6 Lower Body Dressing(FIM): 6 Lower Body Dressing (QC): 6 On/Off Footwear (QC): 6 Toileting(FIM): 6 Toileting Hygiene (QC): 6 Toilet/Commode Transfer(FIM): 6 Toilet/Commode Transfer (QC): 6 Shower Transfer(FIM): 6 Additional Goals: 1-Demonstrate ADL Tasks, 2-Verbalize Understanding, 3- ImproveStrength/Yimi 1=Demonstrate adherence to instructed precautions during ADL tasks. 2=Patient will verbalize/demonstrate understanding of assistive devices/ modifications for ADL. 3=Patient will improve strength/tolerance for activity to enable patient to perform ADL's. OT Education/Plan Problem List/Assessment Pt would benefit from skilled OT to increase her independence in basic self care to allow her to safely return to her home Discharge Recommendations Plan/Recommendations: Continue POC Treatment Plan/Plan of Care Patient would benefit from OT for education, treatment and training to promote independence in ADL's, mobility, safety and/or upper extremity function for ADL' s. Plan of Care: ADL Retraining, Functional Mobility, Group Exercise/Act as Ind ( education, exercise, functional activity, activity tolerance, functional mobility, socialization), UE Funct Exercise/Act, UE Neuromus Re-Ed/Coord Treatment Duration: Dec 26, 2017 Frequency: At least 5 of 7 days/Wk (IRF) Estimated Hrs Per Day: 1.5 hours per day Agreement: Yes Rehab Potential: Good Time/GCodes Start Time: 10:30 Stop Time: 11:45 Total Time Billed (hr/min): 75 Billed Treatment Time visit, 75 minutes ADL ASHLI MEZA OT Dec 23, 2017 11:47
[2017-12-23] MEDS: ACETAMINOPHEN 500 MG TAB (TYLENOL) PO PRN (13:45)
--- NOTE | 2017-12-23 14:11 | Physical Therapy Daily Note ---
PT Daily Note-Current Subjective .Pt. agrees to Rx. States she would like to have a flu vacc before DC. This was forwarded to nursing. " I have gained 23 lbs since being admitted here" Pain Numeric Pain Scale: 3 Location: Left (and right knee) Location Body Site: Knee Pain Description: Ache Mental Status Patient Orientation: Normal For Age Attachments: Oxygen (2L) Transfers Functional [place] Measure 0=Not Assessed/NA 4=Minimal Assistance 1=Total Assistance 5=Supervision or Setup 2=Maximal Assistance 6=Modified [place] 3=Moderate Assistance 7=Complete IndependenceIRFPAI Quality Coding Scale 6 Independent with activity with or without an assistive device 5 Patient requires set up or clean up by helper. Patient completes activity by themselves 4 Supervision or touching assist (CGA). [place] provide cues , steadying assist 3 The helper provides less than half the effort to complete the activity 2 The helper provides more than half the effort to complete the activity 1 Dependent. The helper does all the effort to complete an activity 7 Patient refused to complete or attempt activity 9 The patient did not perform the activity before the current illness or injury 88 Not attempted due to Medical conditions or safety concerns sit to stand from standard dining chair in rehab mod assist. TRF sit to sup into bed mod to max assist for LEs Weight Bearing Right Lower Extremity: Right Full Weight Bearing Left Lower Extremity: Left Full Weight Bearing Gait Training Does the Patient Walk?: Yes Gait Assistive Device: FWW 80 ft x 3, 50ftx1, slow, assist for O2 at 2 L, pt. educated on management of O2 tubing during gait. Exercises Seated Therapy Exercises: Long arc quads, Hip flexion (attempted but can gardly lift them secondary to edema in abdomen and thighs) Assessment Current Status: Fair Progress coughing, increased edema, dyspnea continue PT Short Term Goals Short Term Goals Time Frame: Dec 12, 2017 Transfers (B,C,W/C) (FIM): 4 (met) Gait (FIM): 2 Gait Distance Comment: 100' Gait Level of Assist: 4 Gait Assistive Device: FWW Wheelchair Distance: 60',120' PT Jewelry Salesperson Goals Jewelry Salesperson Goals PT Skilled Nursing Goals Time Frame: Dec 26, 2017 Transfers (B,C,W/C) (FIM): 5 Sit to Lying (QC): 4 Lying-Sitting on Side/Bed(QC): 4 Sit to Stand (QC): 4 Rollin Roll Left to Right (QC): 4 Chair/Qbo-hk-Iqzct Xfer(QC): 4 Car Transfer (QC): 4 Does the Patient Walk: Yes Gait (FIM): 5 Distance: 150' Walk 10 feet (QC): 4 Walk 10ft-Uneven Surface(QC): 4 Walk 50ft with 2 Turns (QC): 4 Walk 150 ft (QC): 4 Gait Level of Assist: 5 Gait Assistive Device: FWW Stairs (FIM): 2 # of Steps: 4 1 Step (curb) (QC): 4 4 Steps (QC): 4 12 Steps (QC): 4 Stairs Level Of Assist: 4 PT Plan Treatment/Plan Treatment Plan: Continue Plan of Care Treatment Plan: Bed Mobility, Concurrent Therapy, Education, Functional Activity Yimi, Functional Strength, Group Therapy, Gait, Safety, Therapeutic Exercise, Transfers Treatment Duration: Dec 26, 2017 Frequency: Modified Program (IRF) Estimated Hrs Per Day: 1.5 hours per day Patient and/or Family Agrees t: Yes Safety Risks/Education Patient Education: Gait Training, Transfer Techniques Teaching Recipient: Patient Teaching Methods: Demonstration, Discussion Response to Teaching: Verbalize Understanding, Return Demonstration, Reinforcement Needed Time/GCodes Time In: 1335 Time Out: 1405 Total Billed Treatment Time: 30 Total Billed Treatment 1,GT30m G Codes Necessary: WERNER Leiva SENIOR RESEARCH SCIENTIST Dec 23, 2017 14:11
[2017-12-23] MEDS ORDERED: FUROSEMIDE 40 MG/4 ML INJ (LASIX) IVP NR (14:45)
--- NOTE | 2017-12-23 14:59 | Occupational Ther Daily Note ---
OT Current Status-Daily Note Subjective Pt seen in jason, up in bed, agreeable to OT. No pain mentioned. Mental Status/Objective Functional [place] Measure 0=Not Assessed/NA 4=Minimal Assistance 1=Total Assistance 5=Supervision or Setup 2=Maximal Assistance 6=Modified [place] 3=Moderate Assistance 7=Complete [place] ADL-Treatment Pt was able to swing legs over EOB and sit SBA. Sit to stand SBA, FWW with bed raised up. Walked SBA, FWW slowly to bathroom. Toileted SBA but needed help to get pants up over bottom. Dressed LE with dressings stick, pt educ its use with paper briefs, needing help to get pants up over bottom, FWW. Doffed/donned shoes with setup. Able to groom at sink mod I, w/c level, to brush teeth, comb hair. Washed hands and face in shower. Left up in bathroom, O2 in place, all needs met. Functional [place] Measure 0=Not Assessed/NA 4=Minimal Assistance 1=Total Assistance 5=Supervision or Setup 2=Maximal Assistance 6=Modified [place] 3=Moderate Assistance 7=Complete IndependenceIRFPAI Quality Coding Scale 6 Independent with activity with or without an assistive device 5 Patient requires set up or clean up by helper. Patient completes activity by themselves 4 Supervision or touching assist (CGA). [place] provide cues , steadying assist 3 The helper provides less than half the effort to complete the activity 2 The helper provides more than half the effort to complete the activity 1 Dependent. The helper does all the effort to complete an activity 7 Patient refused to complete or attempt activity 9 The patient did not perform the activity before the current illness or injury 88 Not attempted due to Medical conditions or safety concerns Grooming (FIM): 6 (Brushes teeth, singer hair mod I , w/c level) Oral Hygiene (QC): 6 Lower Body Dressing (FIM): 4 (Help to get pants up over bottom. Dressing stick. Shoes setup) Lower Body Dressing (QC): 3 On/Off Footwear (QC): 5 Toileting (FIM): 3 (Help to get pants up over bottom) Toileting Hygiene (QC): 3 Toilet/Commode Transfer (FIM): 5 (SBA, BSC) Toilet Transfer (QC): 4 Education OT Patient Education: Modified ADL techniques, Purpose of tx/functional activities, Use of adapted equipment Teaching Recipient: Patient Teaching Methods: Demonstration, Discussion Response to Teaching: Verbalize Understanding, Return Demonstration, Reinforcement Needed OT Short Term Goals Short Term Goals Time Frame: Dec 12, 2017 Toileting(FIM): 5 Transfers (B,C,W/C) (FIM): 4 (met) Toilet/Commode Transfer(FIM): 5 Additional Short Term Goals: 1-Demonstrate ADL Tasks, 2-Verbalize Understanding , 3-ImproveStrength/Yimi 1=Demonstrate adherence to instructed precautions during ADL tasks. 2=Patient will verbalize/demonstrate understanding of assistive devices/ modifications for ADL. 3=Patient will improve strength/tolerance for activity to enable patient to perform ADL's. OT Chcf Goals Chcf Goals Time Frame: Dec 26, 2017 Eating (FIM): 7 Eating (QC): 6 Groomin Oral Hygiene (QC): 6 Bathing(FIM): 6 Shower/Bathe Self (QC): 6 Upper Body Dressing(FIM): 6 Upper Body Dressing (QC): 6 Lower Body Dressing(FIM): 6 Lower Body Dressing (QC): 6 On/Off Footwear (QC): 6 Toileting(FIM): 6 Toileting Hygiene (QC): 6 Toilet/Commode Transfer(FIM): 6 Toilet/Commode Transfer (QC): 6 Shower Transfer(FIM): 6 Additional Goals: 1-Demonstrate ADL Tasks, 2-Verbalize Understanding, 3- ImproveStrength/Yimi 1=Demonstrate adherence to instructed precautions during ADL tasks. 2=Patient will verbalize/demonstrate understanding of assistive devices/ modifications for ADL. 3=Patient will improve strength/tolerance for activity to enable patient to perform ADL's. OT Education/Plan Problem List/Assessment Pt would benefit from skilled OT to increase her independence in basic self care to allow her to safely return to her home Discharge Recommendations Plan/Recommendations: Continue POC Treatment Plan/Plan of Care Patient would benefit from OT for education, treatment and training to promote independence in ADL's, mobility, safety and/or upper extremity function for ADL' s. Plan of Care: ADL Retraining, Functional Mobility, Group Exercise/Act as Ind ( education, exercise, functional activity, activity tolerance, functional mobility, socialization), UE Funct Exercise/Act, UE Neuromus Re-Ed/Coord Treatment Duration: Dec 26, 2017 Frequency: At least 5 of 7 days/Wk (IRF) Estimated Hrs Per Day: 1.5 hours per day Agreement: Yes Rehab Potential: Good Time/GCodes Start Time: 13:05 Stop Time: 13:30 Total Time Billed (hr/min): 25 Billed Treatment Time visit, 25 minutes ADL ASHLI MEZA OT Dec 23, 2017 14:59
[2017-12-23] MEDS ORDERED: FLU QUADRIvalent (5+ YOA) 2018-2019 (AFLURIA) 0.5 ML IM ONE (15:45)
[2017-12-23 17:07] VITALS: BP 114/69
--- NOTE | 2017-12-23 19:04 | Wound Care Assessment ---
Wound Care Assessment Date Seen by Provider: Dec 23, 2017 Time Seen by Provider: 12:20 Chief Complaint Bilateral calf ulcers. HPI The patient is a 72 year old female with severe and long-standing venous insufficiency and deep R calf ulcer. She has now developed new ulceration of the L calf. These are full thickness ulcers. She is to be discharged from the rehab unit later this week. Her exact destination is not determined at this time. She has been unable to elevate her ankles above her heart due to respiratory issues. She is cautioned that this will complicate and may prevent these wounds healing. We will plan to follow her as an outpatient after discharge. The current dressings are Xeroform and ABD's. Past Medical History: Admits Diabetes Type II, Admits Heart Disease Smoking Status: Never a Smoker Recreational Drug Use: No Alcohol Use: Denies Use Review of Systems Pulmonary: Dyspnea Cardiovascular: No: Chest Pain Gastrointestinal: No: Abdominal Pain Musculoskeletal: leg pain Exam Vital Signs Date Time Temp Pulse Resp B/P (MAP) Pulse Ox O2 Delivery O2 Flow Rate FiO2 12/23/17 17:07 99.0 103 20 114/69 (84) 96 Nasal Cannula 2.00 Capillary Refill : Less Than 3 Seconds General Appearance: no apparent distress HEENT: normal ENT inspection Respiratory: no respiratory distress Neurologic/Psychiatric: other (Severe bilateral venous insufficiency ulcers, with several new ones on the L lower calf.) Results Laboratory Tests 12/23/17 05:19: Glucometer 154H 12/23/17 17:32: Glucometer 112H Assessment/Plan/Dx 1. Venous insufficiency ulcers R calf x 2, slightly better. 2. Diabetes mellitus. 3. Morbid obesity. Plan: Continue xeroform/Kerlix/Yonny dressings daily. OLIVER COBOS MD Dec 23, 2017 19:04
--- NOTE | 2017-12-23 19:37 | PM & R (SOAP) Progress Note ---
Subjective This was a face to face visit with the patient. Date Seen by Provider: Dec 23, 2017 Time Seen by Provider: 18:50 Subjective/Events-last exam Patient was seen in her room this evening Patient mod to max assist for transfers Discussed case with DR Salgado Appreciate his note.Remains o2 dependent at this time.Patient to go to local SNU tomorrow for ongoing care and therapies. Review of Systems Pulmonary: Dyspnea Cardiovascular: Edema Objective Physician Exam Last Set of Vital Signs Vital Signs Date Time Temp Pulse Resp B/P (MAP) Pulse Ox O2 Delivery O2 Flow Rate FiO2 12/23/17 19:24 93 Nasal Cannula 2.00 12/23/17 17:07 99.0 103 20 114/69 (84) Capillary Refill : Less Than 3 Seconds I&O Intake and Output 12/23/17 00:00 Intake Total 2590 ml Balance 2590 ml Intake Oral 2590 ml # Voids 4 # Urine Diapers 2 General: Alert, Oriented X3, Cooperative, No Acute Distress HEENT: Atraumatic, PERRLA, EOMI, Mucous Memb Moist/[place] Neck: Supple, No JVD Lungs: Clear to Auscultation Heart: Regular Rate, Normal S1, Normal S2 Abdomen: Normal Bowel Sounds, Soft, No Tenderness, Other (obese) Extremities: No Clubbing, Other (Chronic edema with wounds both shins RT >left) Skin: No Rashes, Other (Chronic wounds both legs RT > left) Neuro: Normal Speech, Sensation Intact, Other (Weaknee BLES) Results Lab Data Laboratory Tests 12/21/17 05:11: Glucometer 105 12/21/17 16:15: Glucometer 140H 12/22/17 05:12: Glucometer 111H 12/22/17 15:38: Glucometer 230H 12/23/17 05:19: Glucometer 154H 12/23/17 17:32: Glucometer 112H Assessment/Plan Assessment and Plan general debil secondary to venous insufficiency ulcers rt leg DR Salgado treating Peripheral edema wraps and elevate Chronic anemia on Aranesp equivalent Low grade fever resolved Hypotension with HX of HTN benicar held Acute exacerbation of Asthma treated DM controlled DVT Prophylaxis lovenox held due to anemia and BRB per rectum Morbid obesity with ADITI on cpapCOPD on advair and SVN treatment CKD O2 dependence Plan Continue PT/OT/Wound care Discharge tomorrow to Local SNU for ongoing care and therapies F/U with PCP and Wound care there Co-Morbidities that are continuing to impact the rehab process: (include details ) JANNET GOTTI MD Dec 23, 2017 19:37
[2017-12-23] MEDS: ATORVASTATIN 40 MG (LIPITOR) TABLET PO SCH (22:05)
[2017-12-23] MEDS: MONTELUKAST 10 MG (SINGULAIR) TAB PO SCH (22:05)
[2017-12-24] MEDS: RT-ALBUTEROL/IPRATROPIUM 3 ML (DUONEB) VIAL INH SCH ×2 (02:16→10:10)
[2017-12-24 05:32] VITALS: BP 98/62
[2017-12-24] MEDS: CATHETER FLUSH 10 ML SYR IV SCH ×3 (06:45→13:15)
[2017-12-24] MEDS: FOLIC ACID 1 MG TAB PO SCH (06:49)
[2017-12-24] MEDS: VITAMIN D3 1,000 UNITS (CHOLECALCIFEROL) TABLET PO SCH (06:49)
[2017-12-24] MEDS: ASCORBIC ACID (VIT C) 500 MG TABLET PO SCH (06:49)
[2017-12-24] MEDS: CALCIUM CARBONATE 600 MG (CALCARB) TAB PO SCH (06:49)
[2017-12-24] MEDS: CYANOCOBALAMIN 1,000 MCG (VITAMIN B-12) TABLET PO SCH (06:49)
--- NOTE | 2017-12-24 07:32 | PM & R (SOAP) Progress Note ---
Subjective This was a face to face visit with the patient. Date Seen by Provider: Dec 24, 2017 Time Seen by Provider: 07:20 Subjective/Events-last exam Patient was seen in her room this AM Had question about procuring Walker Explained that since she is being discharged to a SNU they will provide DME while there.Current meds reviewed Date Identified: Dec 24, 2017 Time Identified: 07:30 Medication Intervention: Discharge meds reviewed Objective Physician Exam Last Set of Vital Signs Vital Signs Date Time Temp Pulse Resp B/P (MAP) Pulse Ox O2 Delivery O2 Flow Rate FiO2 12/24/17 05:32 98.7 101 20 98/62 (74) 95 NIV CPAP 2.00 Capillary Refill : Less Than 3 Seconds I&O Intake and Output 12/24/17 00:00 Intake Total 1340 ml Output Total 500 ml Balance 840 ml Intake Oral 1340 ml Output Urine Total 500 ml # Voids 7 # Urine Diapers 1 # Bowel Movements 1 General: Alert, Oriented X3, Cooperative, No Acute Distress HEENT: Atraumatic, PERRLA, EOMI, Mucous Memb Moist/[place] Neck: Supple, No JVD Lungs: Clear to Auscultation Heart: Regular Rate, Normal S1, Normal S2 Abdomen: Normal Bowel Sounds, Soft, No Tenderness, Other (obese) Extremities: No Clubbing, Other (Chronic edema with wounds both shins RT >left) Skin: No Rashes, Other (Chronic wounds both legs RT > left) Neuro: Normal Speech, Sensation Intact, Other (Weaknee BLES) Results Lab Data Laboratory Tests 12/21/17 16:15: Glucometer 140H 12/22/17 05:12: Glucometer 111H 12/22/17 15:38: Glucometer 230H 12/23/17 05:19: Glucometer 154H 12/23/17 17:32: Glucometer 112H 12/24/17 06:47: Glucometer 137H Assessment/Plan Assessment and Plan Discharge to [facility] today for ongoing care and therapies F/U with DR Roblero and Naomi and other specialties as requested see Orders Co-Morbidities that are continuing to impact the rehab process: (include details ) JANNET GOTTI MD Dec 24, 2017 07:32
[2017-12-24] MEDS ORDERED: TRAM50TA2 PO ×2 (07:38)
[2017-12-24] MEDS ORDERED: METO-387 PO ×2 (07:38)
[2017-12-24] MEDS ORDERED: CALC600T80 PO ×2 (07:38)
[2017-12-24] MEDS: RT-ADVAIR HFA 115/21 MCG PER PUFF IH SCH (10:11)
--- NOTE | 2017-12-24 10:55 | Cardiology Progress Note ---
Subjective Date Seen by Provider: Dec 24, 2017 Time Seen by Provider: 08:25 Subjective/Events-last exam Patient in bed, no new complaint. Continues to complain of dyspnea. Being discharged to [facility] later today. Review of Systems General: No Night Sweats, No Fatigue, No Malaise HEENT: No Visual Changes, No Dysphasia Pulmonary: Dyspnea; No Cough Cardiovascular: Edema; No: Chest Pain, Palpitations, Paroxysmal Noc. Dyspnea Gastrointestinal: No: Nausea, Vomiting, Constipation Genitourinary: No Dysuria, No Frequency, No Incontinence, No Hematuria Musculoskeletal: No: neck pain, back pain Neurological: Weakness; No: Numbness, Change in speech, Confusion Objective-Cardiology Exam Last Set of Vital Signs Vital Signs 12/24/17 12/24/17 05:32 10:10 Temp 98.7 Pulse 101 Resp 20 B/P (MAP) 98/62 (74) Pulse Ox 93 O2 Delivery Nasal Cannula O2 Flow Rate 2.00 Capillary Refill : Less Than 3 Seconds I&O Intake and Output 12/24/17 00:00 Intake Total 1340 ml Output Total 500 ml Balance 840 ml Intake Oral 1340 ml Output Urine Total 500 ml # Voids 7 # Urine Diapers 1 # Bowel Movements 1 General: Alert, Oriented X3, Cooperative, No Acute Distress HEENT: Atraumatic, PERRLA, EOMI, Mucous Memb Moist/[place] Neck: Supple, No JVD Lungs: Clear to Auscultation Heart: Regular Rate, Normal S1, Normal S2 Abdomen: Normal Bowel Sounds, Soft, No Tenderness, Other (obese) Extremities: No Clubbing, Other (Chronic edema with wounds both shins RT >left) Skin: No Rashes, Other (Chronic wounds both legs RT > left) Neuro: Normal Speech, Sensation Intact, Other (Weaknee BLES) A/P-Cardiology Admission Diagnosis Foot ulcer Generalized weakness and debility Chronic venous insufficiency Diabetes mellitus Peripheral arterial disease Assessment/Plan Nonhealing foot ulcers, history of venous stasis ulcers. GEETA was abnormal, ultrasound of the arterial was nondiagnostic, CT showed patent artery with anterior tibial patent down to the foot. The posterior tibial and peroneal arteries were not well visualized. Discussed the management plan with Dr. Salgado and we will try compression therapy for her venous stasis ulcers. Will continue monitoring her status closely Generalized weakness and loss of energy, receiving physical therapy. Improving slowly. Low grade fever- resolved, managed by primary care physician Shortness of breath on exertion, hypoxemia, patient will need persistent chronic oxygen therapy, she is dyspneic at rest and having sinus tachycardia probably secondary to hypoxemia. Sinus tachycardia, persistent, probably secondary to hypoxemia. Started on low- dose beta blockers and evaluate her tolerance and response Chronic kidney disease,continue to monitor renal function. Hypertension, borderline hypotensive. Continue to monitor. Hyperlipidemia, monitor lipids. Anemia, myelodysplastic, has been followed by Dr. Troncoso. Morbid obesity, BMI is 44, discussed weight loss and exercise. History of COPD, obstructive sleep apnea using C Pap. Clinical Quality Measures DVT/VTE Risk/Contraindication: Risk Factor Score Per Nursin RFS Level Per Nursing on Admit: 4+=Very High ALLEN BRADY Dec 24, 2017 10:55
[2017-12-24] MEDS ORDERED: FLU QUADRIvalent (5+ YOA) 2018-2019 (AFLURIA) 0.5 ML IM ONE (11:10)
--- NOTE | 2017-12-24 11:59 | Physical Therapy Daily Note ---
PT Daily Note-Current Subjective Pt laying Supine in bed upon arrival. Pt reports that she thinks that she will discharge at 1400 today but agrees to PT. Mental Status Patient Orientation: Person, Place, Time, Situation Attachments: Oxygen (2L) Transfers Functional [place] Measure 0=Not Assessed/NA 4=Minimal Assistance 1=Total Assistance 5=Supervision or Setup 2=Maximal Assistance 6=Modified [place] 3=Moderate Assistance 7=Complete IndependenceIRFPAI Quality Coding Scale 6 Independent with activity with or without an assistive device 5 Patient requires set up or clean up by helper. Patient completes activity by themselves 4 Supervision or touching assist (CGA). [place] provide cues , steadying assist 3 The helper provides less than half the effort to complete the activity 2 The helper provides more than half the effort to complete the activity 1 Dependent. The helper does all the effort to complete an activity 7 Patient refused to complete or attempt activity 9 The patient did not perform the activity before the current illness or injury 88 Not attempted due to Medical conditions or safety concerns Weight Bearing Right Lower Extremity: Right Full Weight Bearing Left Lower Extremity: Left Full Weight Bearing Exercises Supine Ex: Ankle pumps, Quad Set, Glut sets, Heel Slides, Straight leg raise, Hip abd/add Supine Reps: 10 Treatments Pt very anxious about discharging today and has several questions about SNF/PEDRO pt will transfer to. CRYPTOLOGIST gave education over the specifics that this CRYPTOLOGIST knows of. Pt reports medical changes to CRYPTOLOGIST since last seen by this CRYPTOLOGIST last week. CRYPTOLOGIST goes over & gives HEP despite reassuring pt that facility has Therapy for pt. Pt receives breathing tx and morning meds during tx. Pt finishing breathing tx at end of tx. Pt has all needs met. Assessment Current Status: Good Progress Pt is very anxious and has to talk out her anxiety. Pt is very talkative and has to be reminded to stay on task while talking. Pt takes extended time to complete tasks. PT Short Term Goals Short Term Goals Time Frame: Dec 12, 2017 Transfers (B,C,W/C) (FIM): 4 (met) Gait (FIM): 2 Gait Distance Comment: 100' Gait Level of Assist: 4 Gait Assistive Device: FWW Wheelchair Distance: 60',120' PT Skilled Nursing Goals Trim Machine Adjuster Goals PT Trim Machine Adjuster Goals Time Frame: Dec 26, 2017 Transfers (B,C,W/C) (FIM): 5 Sit to Lying (QC): 4 Lying-Sitting on Side/Bed(QC): 4 Sit to Stand (QC): 4 Rollin Roll Left to Right (QC): 4 Chair/Joa-zg-Egkyw Xfer(QC): 4 Car Transfer (QC): 4 Does the Patient Walk: Yes Gait (FIM): 5 Distance: 150' Walk 10 feet (QC): 4 Walk 10ft-Uneven Surface(QC): 4 Walk 50ft with 2 Turns (QC): 4 Walk 150 ft (QC): 4 Gait Level of Assist: 5 Gait Assistive Device: FWW Stairs (FIM): 2 # of Steps: 4 1 Step (curb) (QC): 4 4 Steps (QC): 4 12 Steps (QC): 4 Stairs Level Of Assist: 4 PT Plan Problem List Problem List: Activity Tolerance, Functional Strength, Safety, Balance, Gait, Transfer, Bed Mobility Treatment/Plan Treatment Plan: Continue Plan of Care Treatment Plan: Bed Mobility, Concurrent Therapy, Education, Functional Activity Yimi, Functional Strength, Group Therapy, Gait, Safety, Therapeutic Exercise, Transfers Treatment Duration: Dec 26, 2017 Frequency: Modified Program (IRF) Estimated Hrs Per Day: 1.5 hours per day Patient and/or Family Agrees t: Yes Safety Risks/Education Patient Education: Gait Training, Transfer Techniques, Issued Written HEP, Correct Positioning, Safety Issues Teaching Recipient: Patient Teaching Methods: Discussion Response to Teaching: Verbalize Understanding Time/GCodes Time In: 915 Time Out: 1015 Total Billed Treatment Time: 60 Total Billed Treatment 1, FA x4 (60m) G Codes Necessary: RENNY Small CRYPTOLOGIST Dec 24, 2017 11:59
[2017-12-24] MEDS ORDERED: FURO-125 PO ×2 (12:27)
--- NOTE | 2017-12-24 14:56 | Cardiology Progress Note ---
Subjective Date Seen by Provider: Dec 24, 2017 Time Seen by Provider: 12:35 Subjective/Events-last exam Patient is sitting in a chair, feeling better, ready to go home. No new complaint Review of Systems General: No Chills, No Night Sweats, No Fatigue, No Malaise, No Appetite, No Other HEENT: No Head Aches, No Visual Changes, No Eye Pain, No Ear Pain, No Dysphasia , No Sinus Congestion, No Post Nasal Drip, No Sore Throat, No Other Pulmonary: No Dyspnea, No Cough, No Pleuritic Chest Pain, No Other Cardiovascular: No: Chest Pain, Palpitations, Orthopnea, Paroxysmal Noc. Dyspnea, Edema, Lt Headedness, Other Objective-Cardiology Exam Last Set of Vital Signs Vital Signs 12/24/17 12/24/17 05:32 10:10 Temp 98.7 Pulse 101 Resp 20 B/P (MAP) 98/62 (74) Pulse Ox 93 O2 Delivery Nasal Cannula O2 Flow Rate 2.00 Capillary Refill : Less Than 3 Seconds I&O Intake and Output 12/24/17 00:00 Intake Total 1340 ml Output Total 500 ml Balance 840 ml Intake Oral 1340 ml Output Urine Total 500 ml # Voids 7 # Urine Diapers 1 # Bowel Movements 1 General: Alert, Oriented X3, Cooperative, No Acute Distress HEENT: Atraumatic, PERRLA, EOMI, Mucous Memb Moist/[place] Neck: Supple, No JVD Lungs: Clear to Auscultation Heart: Regular Rate, Normal S1, Normal S2 Abdomen: Normal Bowel Sounds, Soft, No Tenderness, Other (obese) Extremities: No Clubbing, Other (Chronic edema with wounds both shins RT >left) Skin: No Rashes, Other (Chronic wounds both legs RT > left) Neuro: Normal Speech, Sensation Intact, Other (Weaknee BLES) Results Lab Laboratory Tests Test 12/23/17 17:32 12/24/17 06:47 Range/Units Glucometer 112 H 137 H 70-110 MG/DL A/P-Cardiology Admission Diagnosis Foot ulcer Generalized weakness and debility Chronic venous insufficiency Diabetes mellitus Peripheral arterial disease Assessment/Plan Nonhealing foot ulcers, history of venous stasis ulcers. GEETA was abnormal, ultrasound of the arterial was nondiagnostic, CT showed patent artery with anterior tibial patent down to the foot. The posterior tibial and peroneal arteries were not well visualized. Discussed the management plan with Dr. Salgado and we will try compression therapy for her venous stasis ulcers. Followed and managed by Dr. Salgado Generalized weakness and loss of energy, managed by primary care physician Shortness of breath on exertion, hypoxemia, patient will need persistent chronic oxygen therapy, doing better on continuous oxygen. Sinus tachycardia, persistent, probably secondary to hypoxemia. Better after starting low-dose beta blockers. Continue to monitor Chronic kidney disease,continue to monitor renal function. Hypertension, borderline hypotensive. Continue to monitor. Hyperlipidemia, monitor lipids. Anemia, myelodysplastic, has been followed by Dr. Troncoso. Morbid obesity, BMI is 44, discussed weight loss and exercise. History of COPD, obstructive sleep apnea using C Pap. Clinical Quality Measures DVT/VTE Risk/Contraindication: Risk Factor Score Per Nursin RFS Level Per Nursing on Admit: 4+=Very High ARIANA BARROS MD Dec 24, 2017 14:56
[2017-12-24] MEDS: ACETAMINOPHEN 500 MG TAB (TYLENOL) PO PRN (15:43)
[2017-12-24 16:30] VITALS: BP 98/62
--- NOTE | 2017-12-25 11:40 | Therapy Team Discharge Summary ---
Therapy Discharge Summary Discharge Recommendations Date of Discharge Dec 24, 2017 at 16:30 Therapy D/C Recommendations: Physical Therapy Home Care, Correction (TCU/ NH) (OT) Occupational Therapy Pt was seen for skilled OT to increase her independence in basic self care after admission with wounds on LEs and decreased functional mobility. On admission she was mod I with eating, setup grooming, min assist bathing, min assist upper body dressing, mod assist lower body dressing, mod assist toilet transfers, min assist toileting and min assist shower transfer. By discharge she had progressed to independent with eating, mod I grooming, SBA bathing, setup upper body dressing, min assist lower body dressing, SBA toilet transfers , SBA toileting, SBA shower transfer. Equipment used included BSC over toilet, grab bars, shower bench, hand held shower, toilet aid, FWW, w/c. Pt continued to have edema which limited her ADLs and was also on oxygen. See tx plan for goals met. Pt transferred to skilled facility, with continued OT recommended. DC OT. Decreased Activ Tolerance, Decreased UE Strength, Dependent Transfers, Impaired I ADL's, Impaired Self-Care Skills PT [employer] Workers Goals Food And Drink [employer] Workers Goals PT [employer] Workers Goals Time Frame: Dec 26, 2017 Transfers (B,C,W/C) (FIM): 5 Roll Left to Right (QC): 4 Sit to Lying (QC): 4 Lying-Sitting on Side/Bed(QC): 4 Sit to Stand (QC): 4 Chair/Zmt-oa-Xkiie Xfer(QC): 4 Car Transfer (QC): 4 Does the Patient Walk: Yes Gait (FIM): 5 Distance: 150' Walk 10 feet (QC): 4 Walk 10ft-Uneven Surface(QC): 4 Walk 50ft with 2 Turns (QC): 4 Walk 150 ft (QC): 4 Gait Level of Assist: 5 Gait Assistive Device: FWW Stairs (FIM): 2 # of Steps: 4 1 Step (curb) (QC): 4 4 Steps (QC): 4 12 Steps (QC): 4 Stairs Level Of Assist: 4 OT [employer] Factory Workers Goals Food And Drink Factory Workers Goals Time Frame: Dec 26, 2017 Eating (FIM): 7 (met) Eating (QC): 6 (met) Oral Hygiene (QC): 6 (met) Grooming(FIM): 6 (met) Bathing(FIM): 6 (not met) Shower/Bathe Self (QC): 6 (not met) Upper Body Dressing(FIM): 6 (not met) Upper Body Dressing (QC): 6 (not met) Lower Body Dressing(FIM): 6 (not met) Lower Body Dressing (QC): 6 (not met) On/Off Footwear (QC): 6 (not met) Toileting(FIM): 6 (not met) Toileting Hygiene (QC): 6 (not met) Toilet/Commode Transfer(FIM): 6 (not met) Toilet/Commode Transfer (QC): 6 (not met) Shower Transfer(FIM): 6 (not met) Additional Goals: 1-Demonstrate ADL Tasks, 2-Verbalize Understanding, 3- ImproveStrength/Yimi 1=Demonstrate adherence to instructed precautions during ADL tasks. 2=Patient will verbalize/demonstrate understanding of assistive devices/ modifications for ADL. 3=Patient will improve strength/tolerance for activity to enable patient to perform ADL's. Speech [employer] Workers Goals Longterm Goals no LTGs established as skilled ST not indicated. ASHLI MEZA OT Dec 25, 2017 11:40
== END 2017-12-24 16:30 | DRG 300 ==
PROVIDERS: ADMIT Physical Medicine & Rehabilitation; ATTEND Physical Medicine & Rehabilitation
DX: I87.2 Venous insufficiency (chronic) (peripheral) (principal); L97.811 Non-pressure chronic ulcer of other part of right lower leg limited to breakdown of skin; L97.821 Non-pressure chronic ulcer of other part of left lower leg limited to breakdown of skin; L97.211 Non-pressure chronic ulcer of right calf limited to breakdown of skin; L97.221 Non-pressure chronic ulcer of left calf limited to breakdown of skin; J45.901 Unspecified asthma with (acute) exacerbation; Z68.42 Body mass index [BMI] 45.0-49.9, adult; E11.9 Type 2 diabetes mellitus without complications; I89.0 Lymphedema, not elsewhere classified; R53.81 Other malaise; I12.9 Hypertensive chronic kidney disease with stage 1 through stage 4 chronic kidney disease, or unspecified chronic kidney disease; N18.3 Chronic kidney disease, stage 3 (moderate); D46.9 Myelodysplastic syndrome, unspecified; R26.2 Difficulty in walking, not elsewhere classified; I95.9 Hypotension, unspecified; E66.01 Morbid (severe) obesity due to excess calories; G47.33 Obstructive sleep apnea (adult) (pediatric); E78.00 Pure hypercholesterolemia, unspecified; M17.2 Bilateral post-traumatic osteoarthritis of knee; M81.0 Age-related osteoporosis without current pathological fracture; M54.9 Dorsalgia, unspecified; K44.9 Diaphragmatic hernia without obstruction or gangrene; Z85.820 Personal history of malignant melanoma of skin; Z23 Encounter for immunization
CPT/HCPCS: 36415; 71046; 75635; 80048; 80053; 82728; 82962; 83540; 85025; 85027; 85610; 85730; 90686; 93923; 93925; 94640; 94664; 94760

== ENCOUNTER → 2017-12-27 | Outpatient (CLI) | payer MEDICARE ==
[~2017-12-27] MED LIST changes: +ACET-2267 PO; +ALBU18HF2 INH; +ASCO-262 PO; +ATOR40TA70 PO; +CALC600T80 PO; +CHOL20003 PO; +CYAN100T PO; -DARBEPOETIN 10 MCG/0.4 ML ARANESP IJ SCH; -DARBEPOETIN 25 MCG/ML (CANCER CTR) 1 ML VIAL SC SCH; -DARBEPOETIN 40 MCG/ML (ARANESP) 1 ML VIAL SC SCH; +FLUT1DIS26 INH; +FOLI1TAB24 PO; +FURO-125 PO; +FURO40TA4 PO; +METF-399 PO; +METO-387 PO; +MONT10TA24 PO; +OLME40TA18 PO; +PIOG30TA71 PO; +POTA10TA10 PO; +TRAM50TA2 PO
== END ==
LOC: WOUNDCARE 08:31
PROVIDERS: ATTEND Nurse Practitioner
DX: L97.212 Non-pressure chronic ulcer of right calf with fat layer exposed (principal); L97.222 Non-pressure chronic ulcer of left calf with fat layer exposed; E11.622 Type 2 diabetes mellitus with other skin ulcer; I87.2 Venous insufficiency (chronic) (peripheral); E66.01 Morbid (severe) obesity due to excess calories
CPT/HCPCS: 11042; 11045; 87070; 87075; 87077; 87186; 87205

== ENCOUNTER 2018-01-01 13:23 | Outpatient (RCR) | payer MEDICARE ==
[~2018-01-01 13:23] MED LIST changes: +DARBEPOETIN 40 MCG/ML (ARANESP) 1 ML VIAL SC SCH
[2018-01-01 13:34] LABS: BASOPHILS % (AUTO) 0 % (0-10); EOSINOPHILS # (AUTO) 0.2 10^3/uL (0.0-0.3); EOSINOPHILS % (AUTO) 2 % (0-10); HEMATOCRIT 32 % (35-52); HEMOGLOBIN 9.6 G/DL (11.5-16.0); LYMPHOCYTES # (AUTO) 0.9 X 10^3 (1.0-4.0); LYMPHOCYTES % (AUTO) 13 % (12-44); MEAN CORPUSCULAR HEMOGLOBIN 29 PG (25-34); MEAN CORPUSCULAR HGB CONC 30 G/DL (32-36); MEAN CORPUSCULAR VOLUME 98 FL (80-99); MEAN PLATELET VOLUME 8.8 FL (7.4-10.4); MONOCYTES # (AUTO) 0.4 X 10^3 (0.0-1.0); MONOCYTES % (AUTO) 6 % (0-12); NEUTROPHILS # (AUTO) 5.2 X 10^3 (1.8-7.8); NEUTROPHILS % (AUTO) 78 % (42-75); PLATELET COUNT 261 10^3/uL (130-400); RED BLOOD COUNT 3.31 10^6/uL (4.35-5.85); RED CELL DISTRIBUTION WIDTH 17.1 % (10.0-14.5); WHITE BLOOD COUNT 6.7 10^3/uL (4.3-11.0)
== END 2018-01-07 11:22 | disposition home or self-care (01) ==
LOC: ONC 13:23
PROVIDERS: ATTEND Internal Medicine Hematology & Oncology
DX: D50.9 Iron deficiency anemia, unspecified (principal); D63.1 Anemia in chronic kidney disease; N18.3 Chronic kidney disease, stage 3 (moderate); Z85.820 Personal history of malignant melanoma of skin; E11.9 Type 2 diabetes mellitus without complications; I10 Essential (primary) hypertension; E78.2 Mixed hyperlipidemia; R60.0 Localized edema; Z82.49 Family history of ischemic heart disease and other diseases of the circulatory system; Z79.84 Long term (current) use of oral hypoglycemic drugs; Z79.899 Other long term (current) drug therapy
CPT/HCPCS: 36415; 85025; 96372

== ENCOUNTER → 2018-01-03 | Outpatient (CLI) | payer MEDICARE ==
[~2018-01-03] MED LIST changes: -DARBEPOETIN 40 MCG/ML (ARANESP) 1 ML VIAL SC SCH
== END ==
LOC: WOUNDCARE 08:58
PROVIDERS: ATTEND Surgery
DX: E11.622 Type 2 diabetes mellitus with other skin ulcer (principal); I87.333 Chronic venous hypertension (idiopathic) with ulcer and inflammation of bilateral lower extremity; L97.212 Non-pressure chronic ulcer of right calf with fat layer exposed; L97.222 Non-pressure chronic ulcer of left calf with fat layer exposed; E66.01 Morbid (severe) obesity due to excess calories; Z68.43 Body mass index [BMI] 50.0-59.9, adult
CPT/HCPCS: 11042; 11045

== ENCOUNTER → 2018-01-10 | Outpatient (CLI) | payer MEDICARE | LOC: WOUNDCARE 09:20 | PROVIDERS: ATTEND Surgery | DX: E11.622 Type 2 diabetes mellitus with other skin ulcer (principal); L97.212 Non-pressure chronic ulcer of right calf with fat layer exposed; I87.333 Chronic venous hypertension (idiopathic) with ulcer and inflammation of bilateral lower extremity; L97.222 Non-pressure chronic ulcer of left calf with fat layer exposed; E66.01 Morbid (severe) obesity due to excess calories; Z68.43 Body mass index [BMI] 50.0-59.9, adult; I87.2 Venous insufficiency (chronic) (peripheral) | CPT/HCPCS: 11042; 11045 ==

== ENCOUNTER → 2018-01-10 | Outpatient (CLI) | payer MEDICARE | LOC: CARD 10:48 | PROVIDERS: ATTEND Internal Medicine | DX: I49.9 Cardiac arrhythmia, unspecified (principal) | CPT/HCPCS: 93005 ==

== ENCOUNTER → 2018-01-17 | Outpatient (CLI) | payer MEDICARE | LOC: WOUNDCARE 08:59 | PROVIDERS: ATTEND Nurse Practitioner | DX: L97.212 Non-pressure chronic ulcer of right calf with fat layer exposed (principal); L97.222 Non-pressure chronic ulcer of left calf with fat layer exposed; E11.622 Type 2 diabetes mellitus with other skin ulcer; I87.333 Chronic venous hypertension (idiopathic) with ulcer and inflammation of bilateral lower extremity; E66.01 Morbid (severe) obesity due to excess calories | CPT/HCPCS: 11042 ==

== ENCOUNTER → 2018-01-24 | Outpatient (CLI) | payer MEDICARE ==
[~2018-01-24] MED LIST changes: +AMIO200T4 PO; +APIX5TAB PO; +MAGN125C PO; +METO-352 PO; +METO200T48 PO
== END ==
LOC: WOUNDCARE 08:56
PROVIDERS: ATTEND Surgery
DX: L97.212 Non-pressure chronic ulcer of right calf with fat layer exposed (principal); L97.222 Non-pressure chronic ulcer of left calf with fat layer exposed; I87.333 Chronic venous hypertension (idiopathic) with ulcer and inflammation of bilateral lower extremity; E11.622 Type 2 diabetes mellitus with other skin ulcer; E66.01 Morbid (severe) obesity due to excess calories; B96.5 Pseudomonas (aeruginosa) (mallei) (pseudomallei) as the cause of diseases classified elsewhere
CPT/HCPCS: 11042; 11045

== ENCOUNTER 2018-01-26 15:05 | Inpatient (IN) | payer MEDICARE ==
[2018-01-26] VITALS (13 sets, daily range): BP systolic 127–148; BP diastolic 72–102
[~2018-01-26] VITALS: Ht 165.1 cm; Wt 148.0 kg
[~2018-01-26 15:05] MED LIST changes: -AMIO200T4 PO; -APIX5TAB PO; -MAGN125C PO; -METO-352 PO; -METO200T48 PO
[2018-01-26] MEDS ORDERED: RT-ALBUTEROL/IPRATROPIUM 3 ML (DUONEB) VIAL ONE (15:09)
--- OUTSIDE RECORDS SUMMARY | 2018-01-26 15:16 | XMS REPORT | Continuity of Care Document ---
Author Author [facility] Organization [facility] Address Unknown Phone Unavailable Allergies Active Description Code Type Severity Reaction Onset Reported/Identified Relationship to Patient Clinical Status Yes penicillin G [id number] Drug Allergy Unknown N/A 12/30/2005 Yes NSAIDS (Non-Steroidal Anti-Inflamma [id number] Drug Allergy Unknown N/A Yes penicillin G [id number] Drug Allergy Unknown HAS RECEIVED AN 10/13/2015 Yes celecoxib [id number] Drug Allergy Unknown N/A 12/05/2017 Medications There is no data. Problems Date Dx Coded Attending Type Code Diagnosis Diagnosed By ROSALEE CRENSHAW Ot D50.9 IRON DEFICIENCY ANEMIA, UNSPECIFIED ROSALEE CRENSHAW Ot E11.9 TYPE 2 DIABETES MELLITUS WITHOUT COMPLIC ROSALEE CRENSHAW Ot E78.2 MIXED HYPERLIPIDEMIA ROSALEE CRENSHAW Ot I10 ESSENTIAL (PRIMARY) HYPERTENSION ROSALEE CRENSHAW Ot R60.0 LOCALIZED EDEMA ROSALEE CRENSHAW Ot Z79.84 PENITENTIARY (CURRENT) USE OF ORAL HYPOGLYC ROSALEE CRENSHAW Ot Z79.899 OTHER PENITENTIARY (CURRENT) DRUG THERAPY ROSALEE CRENSHAW Ot Z82.49 FAMILY HX OF ISCHEM HEART DIS AND OTH DI ROSALEE CRENSHAW Ot Z85.820 PERSONAL HISTORY OF MALIGNANT MELANOMA O 02/21/1121 TOMER PRESTON MD, Ot D50.9 IRON DEFICIENCY ANEMIA, UNSPECIFIED 02/21/1121 TOMER PRESTON MD, Ot D63.1 ANEMIA IN CHRONIC KIDNEY DISEASE 02/21/1121 TOMER PRESTON MD, Ot E11.9 TYPE 2 DIABETES MELLITUS WITHOUT COMPLIC 02/21/1121 TOMER PRESTON MD, Ot E78.2 MIXED HYPERLIPIDEMIA 02/21/1121 TOMER PRESTON MD Ot I10 ESSENTIAL (PRIMARY) HYPERTENSION 02/21/1121 TOMER PRESTON MD Ot N18.3 CHRONIC KIDNEY DISEASE, STAGE 3 (MODERAT 02/21/1121 TOMER PRESTON MD Ot R60.0 LOCALIZED EDEMA 02/21/1121 TOMER PRESTON MD Ot Z79.84 SHIFT ENGINEER (CURRENT) USE OF ORAL HYPOGLYC 02/21/1121 TOMER PRESTON MD Ot Z79.899 OTHER SHIFT ENGINEER (CURRENT) DRUG THERAPY 02/21/1121 TOMER PRESTON MD Ot Z82.49 FAMILY HX OF ISCHEM HEART DIS AND OTH DI 02/21/1121 TOMER PRESTON MD Ot Z85.820 PERSONAL HISTORY OF MALIGNANT MELANOMA O 02/21/1337 TOMER PRESTON MD, Ot D50.9 IRON DEFICIENCY ANEMIA, UNSPECIFIED 02/21/1337 TOMER PRESTON MD, Ot D63.1 ANEMIA IN CHRONIC KIDNEY DISEASE 02/21/1337 TOMER PRESTON MD Ot E11.9 TYPE 2 DIABETES MELLITUS WITHOUT COMPLIC 02/21/1337 TOMER PRESTON MD, Ot E78.2 MIXED HYPERLIPIDEMIA 02/21/1337 TOMER PRESTON MD Ot I10 ESSENTIAL (PRIMARY) HYPERTENSION 02/21/1337 TOMER PRESTON MD Ot N18.3 CHRONIC KIDNEY DISEASE, STAGE 3 (MODERAT 02/21/1337 TOMER PRESTON MD Ot R60.0 LOCALIZED EDEMA 02/21/1337 TOMER PRESTON MD Ot Z79.84 SHIFT ENGINEER (CURRENT) USE OF ORAL HYPOGLYC 02/21/1337 TOMER PRESTON MD Ot Z79.899 OTHER PENITENTIARY (CURRENT) DRUG THERAPY 02/21/1337 TOMER PRESTON MD Ot Z82.49 FAMILY HX OF ISCHEM HEART DIS AND OTH DI 02/21/1337 TOMER PRESTON MD Ot Z85.820 PERSONAL HISTORY OF MALIGNANT MELANOMA O 02/21/1399 OLIVER COBOS MD, Ot E11.622 TYPE 2 DIABETES MELLITUS WITH OTHER SKIN 02/21/1399 OLIVER COBOS MD, Ot E66.01 MORBID (SEVERE) OBESITY DUE TO EXCESS CA 02/21/1399 OLIVER COBOS MD Ot I87.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 SYNDROME [...] W ULCER AND INFLAMMAT 02/21/1599 OLIVER COBOS MD, Ot L97.212 NON-PRESSURE CHRONIC ULCER OF RIGHT CALF 02/21/1599 OLIVER COBOS MD, Ot Z68.43 BODY MASS [...] ULCER OF RIGHT CALF 09/28/2015 DIA CORDERO BULB ASSEMBLER Ot E11.622 TYPE 2 DIABETES MELLITUS WITH OTHER SKIN 09/28/2015 DIA CORDERO BULB ASSEMBLER Ot E66.01 MORBID (SEVERE) OBESITY DUE TO EXCESS CA 09/28/2015 DIA CORDERO BULB ASSEMBLER Ot 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 09/28/2015 CONSUELODIA BULB ASSEMBLER Ot L97.212 NON-PRESSURE CHRONIC ULCER OF RIGHT CALF 10/03/2015 DIA CORDERO BULB ASSEMBLER Ot E11.622 TYPE 2 DIABETES MELLITUS WITH OTHER SKIN 10/03/2015 DIA CORDERO BULB ASSEMBLER Ot E66.01 MORBID (SEVERE) OBESITY DUE TO EXCESS CA 10/03/2015 DIA CORDERO BULB ASSEMBLER Ot 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 10/03/2015 DIA CORDERO BULB ASSEMBLER Ot L97.212 NON-PRESSURE CHRONIC ULCER OF RIGHT CALF 10/03/2015 Ot 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 10/03/2015 Ot V76.12 OTH SCREEN MAMMO-MALIGN NEOPLASM OF ALISTAIR 10/03/2015 SHERRILL GAMBINO, JOHN Bello Ot V76.12 OTH SCREEN MAMMO-MALIGN NEOPLASM OF ALISTAIR 10/03/2015 OLIVER COBOS MD Ot E11.622 TYPE 2 DIABETES MELLITUS WITH OTHER SKIN 10/03/2015 OLIVER COBOS MD Ot E66.01 MORBID (SEVERE) OBESITY DUE TO EXCESS CA 10/03/2015 OLIVER COBOS MD Ot 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 10/03/2015 OLIVER COBOS MD Ot L97.212 NON-PRESSURE CHRONIC ULCER OF RIGHT CALF 10/03/2015 DIA CORDERO BULB ASSEMBLER Ot E11.622 TYPE 2 DIABETES MELLITUS WITH OTHER SKIN 10/03/2015 DIA CORDERO BULB ASSEMBLER Ot E66.01 MORBID (SEVERE) OBESITY DUE TO EXCESS CA 10/03/2015 DIA CORDERO BULB ASSEMBLER Ot 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 AND [...] MASS INDEX (BMI) 50-59.9 , ADULT 10/25/2015 OILVER COBOS MD, Ot E11.622 TYPE 2 [...] (BMI) 50-59.9 , ADULT 10/26/2015 OLIVER COBOS MD Ot E11.622 TYPE 2 [...] MELLITUS WITH OTHER SKIN 11/03/2015 DIA CORDERO BULB ASSEMBLER Ot E66.01 MORBID (SEVERE) OBESITY DUE TO EXCESS CA 11/03/2015 DIA CORDERO APRN Ot 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 11/03/2015 DIA CORDERO BULB ASSEMBLER Ot L97.212 NON-PRESSURE CHRONIC ULCER OF RIGHT CALF 11/04/2015 OLIVER COBOS MD, Ot E11.622 TYPE 2 DIABETES MELLITUS WITH OTHER SKIN 11/04/2015 OLIVER COBOS MD, Ot E66.01 MORBID (SEVERE) OBESITY DUE TO EXCESS CA 11/04/2015 OLIVER COBOS MD, Ot I87.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 SYNDROME [...] POSTTHROM SYNDROME W ULCER AND INFLAMMAT 11/21/2015 LOIVER COBOS MD, Ot L97.212 NON-PRESSURE CHRONIC ULCER [...] ULCER OF RIGHT CALF 12/02/2015 OLIVER COBOS MD Ot E11.622 TYPE 2 [...] ULCER OF RIGHT CALF 12/02/2015 OLIVER COBOS MD Ot E11.622 TYPE 2 DIABETES MELLITUS WITH OTHER SKIN 12/02/2015 OLIVER COBOS MD Ot E66.01 MORBID (SEVERE) OBESITY DUE TO EXCESS CA 12/02/2015 OLIVER COBOS MD, Ot 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 12/02/2015 OLIVER COBOS MD Ot L97.212 NON-PRESSURE CHRONIC ULCER OF RIGHT CALF 12/02/2015 OLIVER COBOS MD Ot Z68.43 BODY MASS [...] (SEVERE) OBESITY DUE TO EXCESS CA 12/13/2015 OILVER COBOS MD, Ot I87.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 SYNDROME W [...] (SEVERE) OBESITY DUE TO EXCESS CA 12/22/2015 OLIEVR COBOS MD, Ot 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 12/22/2015 OLIVER COBOS MD, Ot L97.212 NON-PRESSURE CHRONIC ULCER OF RIGHT CALF 12/22/2015 OLIVER COBOS MD, Ot Z68.43 BODY MASS INDEX (BMI) 50-59.9 , ADULT 12/22/2015 JOHN MCCARTNEY MD Ot D64.9 ANEMIA, UNSPECIFIED 12/26/2015 OLIVER COBOS [...] POSTTHROM SYNDROME W ULCER AND INFLAMMAT 03/07/2016 CHANDRIKA GAMBINO, OLIVER Montanez Ot L97.212 NON-PRESSURE CHRONIC ULCER OF RIGHT [...] D DEFICIENCY, UNSPECIFIED 07/31/2016 JOHN MCCARTNEY MD D Ot E78.5 HYPERLIPIDEMIA, UNSPECIFIED 08/22/2016 DENROSALEE Ot D64.9 ANEMIA, UNSPECIFIED 08/22/2016 DEN, ROSALEE Sage Ot E11.9 TYPE 2 DIABETES MELLITUS WITHOUT COMPLIC 08/23/2016 DEN ROSALEE Sage Ot D64.9 ANEMIA, UNSPECIFIED 08/23/2016 DEN, ZURDOBRISSA N Ot E11.9 TYPE 2 DIABETES MELLITUS WITHOUT COMPLIC 08/29/2016 DEN ROSALEE N Ot D50.9 IRON DEFICIENCY ANEMIA, UNSPECIFIED 08/29/2016 DEN ROSALEE N Ot E11.9 TYPE 2 DIABETES MELLITUS WITHOUT COMPLIC 08/29/2016 DENROSALEE N Ot E78.2 MIXED HYPERLIPIDEMIA 08/29/2016 DENROSALEE N Ot I10 ESSENTIAL (PRIMARY) HYPERTENSION 08/29/2016 DENROSALEE STEWART N Ot R60.0 LOCALIZED EDEMA 08/29/2016 ROSALEE CRENSHAW N Ot Z79.84 PENITENTIARY (CURRENT) USE OF ORAL HYPOGLYC 08/29/2016 ROSALEE CRENSHAW Ot Z79.899 OTHER SHIFT ENGINEER (CURRENT) DRUG THERAPY 08/29/2016 ROSALEE CRENSHAW Ot Z82.49 FAMILY HX OF ISCHEM HEART DIS AND OTH DI 08/29/2016 ROSALEE CRENSHAW Ot Z85.820 PERSONAL HISTORY OF MALIGNANT MELANOMA O 09/03/2016 SHERRILL GAMBINO, JOHN Bello Ot E11.9 TYPE 2 DIABETES MELLITUS WITHOUT COMPLIC 09/03/2016 SHERRILL GAMBINO, JOHN Bello Ot E55.9 VITAMIN D DEFICIENCY, UNSPECIFIED 09/03/2016 JOHN MCCARTNEY MD, Ot E78.5 HYPERLIPIDEMIA, UNSPECIFIED 09/03/2016 JOHN MCCARTNEY MD Ot Z11.59 ENCOUNTER FOR SCREENING FOR OTHER VIRAL 10/15/2016 ROSALEE CRENSHAW Ot D50.9 IRON DEFICIENCY ANEMIA, UNSPECIFIED 10/15/2016 DENROSALEE Ot E11.9 TYPE 2 DIABETES MELLITUS WITHOUT COMPLIC 10/15/2016 DENROSALEE N Ot E78.2 MIXED HYPERLIPIDEMIA 10/15/2016 DENROSALEE STEWART N Ot I10 ESSENTIAL (PRIMARY) HYPERTENSION 10/15/2016 ROSALEE CRENSHAW N Ot R60.0 LOCALIZED EDEMA 10/15/2016 ROSALEE CRENSHAW N Ot Z79.84 PENITENTIARY (CURRENT) USE OF ORAL HYPOGLYC 10/15/2016 DENROSALEE N Ot Z79.899 OTHER SHIFT ENGINEER (CURRENT) DRUG THERAPY 10/15/2016 DENROSALEE Ot Z82.49 FAMILY HX OF ISCHEM HEART DIS AND OTH DI 10/15/2016 DENROSALEE N Ot Z85.820 PERSONAL HISTORY OF MALIGNANT MELANOMA O 10/19/2016 DENROSALEE Ot D50.9 IRON DEFICIENCY ANEMIA, UNSPECIFIED 10/19/2016 DENROSALEE Ot E11.9 TYPE 2 DIABETES MELLITUS WITHOUT COMPLIC 10/19/2016 DENROSALEE N Ot E78.2 MIXED HYPERLIPIDEMIA 10/19/2016 DENROSALEE N Ot I10 ESSENTIAL (PRIMARY) HYPERTENSION 10/19/2016 ROSALEE CRENSHAW Ot R60.0 LOCALIZED EDEMA 10/19/2016 DENROSALEE STEWART Ot Z79.84 SHIFT ENGINEER (CURRENT) USE OF ORAL HYPOGLYC 10/19/2016 ROSALEE CRENSHAW Ot Z79.899 OTHER PENITENTIARY (CURRENT) DRUG THERAPY 10/19/2016 DENROSALEE Ot Z82.49 FAMILY HX OF ISCHEM HEART DIS AND OTH DI 10/19/2016 DENROSALEE Ot Z85.820 PERSONAL HISTORY OF MALIGNANT MELANOMA O 11/22/2016 SHERRILL GAMBINO, JOHN Bello Ot E11.9 TYPE 2 DIABETES MELLITUS WITHOUT COMPLIC 11/23/2016 ROSALEE CRENSHAW Ot D50.9 IRON DEFICIENCY ANEMIA, UNSPECIFIED 11/23/2016 ROSALEE CRENSHAW Ot E11.9 TYPE 2 DIABETES MELLITUS WITHOUT COMPLIC 11/23/2016 ROSALEE CRENSHAW Ot E78.2 MIXED HYPERLIPIDEMIA 11/23/2016 DENROSALEE N Ot I10 ESSENTIAL (PRIMARY) HYPERTENSION 11/23/2016 DENROSALEE N Ot R60.0 LOCALIZED EDEMA 11/23/2016 DENROSALEE STEWART N Ot Z79.84 PENITENTIARY (CURRENT) USE OF ORAL HYPOGLYC 11/23/2016 ROSALEE CRENSHAW N Ot Z79.899 OTHER SHIFT ENGINEER (CURRENT) DRUG THERAPY 11/23/2016 ROSALEE CRENSHAW N Ot Z82.49 FAMILY HX OF ISCHEM HEART DIS AND OTH DI 11/23/2016 ROSALEE CRENSHAW N Ot Z85.820 PERSONAL HISTORY OF MALIGNANT MELANOMA O 11/23/2016 ROSALEE CRENSHAW Ot D64.9 ANEMIA, UNSPECIFIED 11/23/2016 ROSALEE CRENSHAW N Ot E11.9 TYPE 2 DIABETES MELLITUS WITHOUT COMPLIC 11/24/2016 SHERRILL GAMBINO, JOHN Bello Ot E11.9 TYPE 2 DIABETES MELLITUS WITHOUT COMPLIC 12/06/2016 ROSALEE CRENSHAW Chu Ot D50.9 IRON DEFICIENCY ANEMIA, UNSPECIFIED 12/06/2016 ROSALEE CRENSHAW N Ot E11.9 TYPE 2 DIABETES MELLITUS WITHOUT COMPLIC 12/06/2016 ROSALEE CRENSHAW N Ot E78.2 MIXED HYPERLIPIDEMIA 12/06/2016 DENROSALEE STEWART N Ot I10 ESSENTIAL (PRIMARY) HYPERTENSION 12/06/2016 DENROSALEE STEWART N Ot R60.0 LOCALIZED EDEMA 12/06/2016 DENROSALEE STEWART N Ot Z79.84 SHIFT ENGINEER (CURRENT) USE OF ORAL HYPOGLYC 12/06/2016 ROSALEE CRENSHAW N Ot Z79.899 OTHER PENITENTIARY (CURRENT) DRUG THERAPY 12/06/2016 DEN ROSALEE Chu Ot Z82.49 FAMILY HX OF ISCHEM HEART DIS AND OTH DI 12/06/2016 ROSALEE CRENSHAW N Ot Z85.820 PERSONAL HISTORY OF MALIGNANT MELANOMA O 12/22/2016 ROSALEE CRENSHAW N Ot D50.9 IRON DEFICIENCY ANEMIA, UNSPECIFIED 12/22/2016 ROSALEE CRENSHAW N Ot E11.9 TYPE 2 DIABETES MELLITUS WITHOUT COMPLIC 12/22/2016 ROSALEE CRENSHAW N Ot E78.2 MIXED HYPERLIPIDEMIA 12/22/2016 ROSALEE CRENSHAW N Ot I10 ESSENTIAL (PRIMARY) HYPERTENSION 12/22/2016 ROSALEE CRENSHAW N Ot R60.0 LOCALIZED EDEMA 12/22/2016 ROSALEE CRENSHAW N Ot Z79.84 SHIFT ENGINEER (CURRENT) USE OF ORAL HYPOGLYC 12/22/2016 ROSALEE CRENSHAW N Ot Z79.899 OTHER SHIFT ENGINEER (CURRENT) DRUG THERAPY 12/22/2016 ROSALEE CRENSHAW N Ot Z82.49 FAMILY HX OF ISCHEM HEART DIS AND OTH DI 12/22/2016 ROSALEE CRENSHAW N Ot Z85.820 PERSONAL HISTORY OF MALIGNANT MELANOMA O 12/27/2016 ROSALEE CRENSHAW N Ot D50.9 IRON DEFICIENCY ANEMIA, UNSPECIFIED 12/27/2016 DEN, BOBAN N Ot E11.9 TYPE 2 DIABETES MELLITUS WITHOUT COMPLIC 12/27/2016 DEN, BOBAN N Ot E78.2 MIXED HYPERLIPIDEMIA 12/27/2016 DEN, BOBAN N Ot I10 ESSENTIAL (PRIMARY) HYPERTENSION 12/27/2016 DEN BOBAN N Ot R60.0 LOCALIZED EDEMA 12/27/2016 DEN, BOBAN N Ot Z79.84 SHIFT ENGINEER (CURRENT) USE OF ORAL HYPOGLYC 12/27/2016 DEN, BOBAN N Ot Z79.899 OTHER SHIFT ENGINEER (CURRENT) DRUG THERAPY 12/27/2016 DEN, BOBAN N Ot Z82.49 FAMILY HX OF ISCHEM HEART DIS AND OTH DI 12/27/2016 DEN, BOBAN N Ot Z85.820 PERSONAL HISTORY OF MALIGNANT MELANOMA O 01/30/2017 SHERRILL GAMBINO, JOHN Bello Ot E11.9 TYPE 2 DIABETES MELLITUS WITHOUT COMPLIC 03/28/2017 DEN, BOBAN N Ot D50.9 IRON DEFICIENCY ANEMIA, UNSPECIFIED 03/28/2017 DEN BOBAN N Ot E11.9 TYPE 2 DIABETES MELLITUS WITHOUT COMPLIC 03/28/2017 DEN, BOBAN N Ot E78.2 MIXED HYPERLIPIDEMIA 03/28/2017 DEN, BOBAN N Ot I10 ESSENTIAL (PRIMARY) HYPERTENSION 03/28/2017 DEN BOBAN N Ot R60.0 LOCALIZED EDEMA 03/28/2017 DEN, BOBAN N Ot Z79.84 SHIFT ENGINEER (CURRENT) USE OF ORAL HYPOGLYC 03/28/2017 DEN, BOBAN N Ot Z79.899 OTHER SHIFT ENGINEER (CURRENT) DRUG THERAPY 03/28/2017 DEN, BOBAN N [...] N Ot I10 ESSENTIAL (PRIMARY) HYPERTENSION 04/30/2017 DENROSALEE N Ot R60.0 LOCALIZED EDEMA 04/30/2017 DENROSALEE N Ot Z79.84 PENITENTIARY (CURRENT) USE OF ORAL HYPOGLYC 04/30/2017 DENROSALEE N Ot Z79.899 OTHER PENITENTIARY (CURRENT) DRUG THERAPY 04/30/2017 DENROSALEE N Ot Z82.49 FAMILY HX OF ISCHEM HEART DIS AND OTH DI 04/30/2017 DEN ROSALEE N Ot Z85.820 PERSONAL HISTORY OF MALIGNANT MELANOMA O 06/25/2017 DENROSALEE N Ot D50.9 IRON DEFICIENCY ANEMIA, UNSPECIFIED 06/25/2017 DEN BOBAN N Ot E11.9 TYPE 2 DIABETES MELLITUS WITHOUT COMPLIC 06/25/2017 DENROSALEE N Ot E78.2 MIXED HYPERLIPIDEMIA 06/25/2017 DENZURDOAN N Ot I10 ESSENTIAL (PRIMARY) HYPERTENSION 06/25/2017 DENROSALEE N Ot R60.0 LOCALIZED EDEMA 06/25/2017 DENROSALEE N Ot Z79.84 PENITENTIARY (CURRENT) USE OF ORAL HYPOGLYC 06/25/2017 DENROSALEE N Ot Z79.899 OTHER SHIFT ENGINEER (CURRENT) DRUG THERAPY 06/25/2017 DENROSALEE N Ot Z82.49 FAMILY HX OF ISCHEM HEART DIS AND OTH DI 06/25/2017 DENROSALEE N Ot Z85.820 PERSONAL HISTORY OF MALIGNANT MELANOMA O 06/26/2017 DENROSALEE N Ot D50.9 IRON DEFICIENCY ANEMIA, UNSPECIFIED 06/26/2017 DENROSALEE N Ot E11.9 TYPE 2 DIABETES MELLITUS WITHOUT COMPLIC 06/26/2017 DEN BOBAN N Ot E78.2 MIXED HYPERLIPIDEMIA 06/26/2017 DEN, BOBAN N Ot I10 ESSENTIAL (PRIMARY) HYPERTENSION 06/26/2017 DEN BOBAN N Ot R60.0 LOCALIZED EDEMA 06/26/2017 DEN BOBAN N Ot Z79.84 SHIFT ENGINEER (CURRENT) USE OF ORAL HYPOGLYC 06/26/2017 DEN, ZURDOAN N Ot Z79.899 OTHER SHIFT ENGINEER (CURRENT) DRUG THERAPY 06/26/2017 DENROSALEE N Ot Z82.49 FAMILY HX OF ISCHEM HEART DIS AND OTH DI 06/26/2017 ROSALEE CRENSHAW Ot Z85.820 PERSONAL HISTORY OF MALIGNANT MELANOMA O 06/27/2017 ROSALEE CRENSHAW Ot D50.9 IRON DEFICIENCY ANEMIA, UNSPECIFIED 06/27/2017 ROSLAEE CRENSHAW Ot E11.9 TYPE 2 DIABETES MELLITUS WITHOUT COMPLIC 06/27/2017 ROSALEE CRENSHAW Ot E78.2 MIXED HYPERLIPIDEMIA 06/27/2017 ROSALEE CRENSHAW Chu Ot I10 ESSENTIAL (PRIMARY) HYPERTENSION 06/27/2017 ROSALEE CRENSHAW Ot R60.0 LOCALIZED EDEMA 06/27/2017 ROSALEE CRENSHAW Ot Z79.84 PENITENTIARY (CURRENT) USE OF ORAL HYPOGLYC 06/27/2017 ROSALEE CRENSHAW Chu Ot Z79.899 OTHER SHIFT ENGINEER (CURRENT) DRUG THERAPY 06/27/2017 ROSALEE CRENSHAW Ot [...] COMPLIC 07/03/2017 SHERRILL GAMBINO, JOHN Bello Ot E11.9 TYPE 2 DIABETES MELLITUS WITHOUT COMPLIC 07/03/2017 SHERRILL GAMBINO, JOHN Bello Ot I10 ESSENTIAL (PRIMARY) HYPERTENSION 07/03/2017 ROSALEE CRENSHAW Ot D50.9 IRON DEFICIENCY ANEMIA, UNSPECIFIED 07/03/2017 ROSALEE CRENSHAW Ot E11.9 TYPE 2 DIABETES MELLITUS WITHOUT COMPLIC 07/03/2017 ROSALEE CRENSHAW Ot E78.2 MIXED HYPERLIPIDEMIA 07/03/2017 ROSALEE CRENSHAW Ot I10 ESSENTIAL (PRIMARY) HYPERTENSION 07/03/2017 ROSALEE CRENSHAW Ot R60.0 LOCALIZED EDEMA 07/03/2017 ROSALEE CRENSHAW Ot Z79.84 SHIFT ENGINEER (CURRENT) USE OF ORAL HYPOGLYC 07/03/2017 ROSALEE CRENSHAW Ot Z79.899 OTHER SHIFT ENGINEER (CURRENT) DRUG THERAPY 07/03/2017 ROSALEE CRENSHAW Ot Z82.49 FAMILY HX OF [...] MELLITUS WITH OTHER SKIN 07/03/2017 DIA CORDERO BULB ASSEMBLER Ot E66.01 MORBID (SEVERE) OBESITY DUE TO [...] Ot E78.2 MIXED HYPERLIPIDEMIA 07/03/2017 TOMER PRESTON MD, Ot I10 ESSENTIAL (PRIMARY) HYPERTENSION 07/03/2017 TOMER [...] MELLITUS WITH OTHER SKIN 07/03/2017 DIA CORDERO BULB ASSEMBLER Ot E66.01 MORBID (SEVERE) OBESITY DUE TO [...] JOHN Bello Ot E78.5 HYPERLIPIDEMIA, UNSPECIFIED 07/03/2017 JOHN MCCARTNEY [...] OF MALIGNANT MELANOMA O 07/04/2017 TOMER PRESTON MD, Ot D50.9 IRON DEFICIENCY ANEMIA, UNSPECIFIED 07/04/2017 TOMER PRESTON MD Ot E11.9 TYPE 2 DIABETES MELLITUS WITHOUT COMPLIC 07/04/2017 TOMER PRESTON MD Ot E78.2 MIXED HYPERLIPIDEMIA 07/04/2017 TOMER PRESTON MD Ot I10 ESSENTIAL (PRIMARY) HYPERTENSION 07/04/2017 TOMER PRESTON MD Ot R60.0 LOCALIZED EDEMA 07/04/2017 TOMER PRESTON MD Ot Z79.84 SHIFT ENGINEER (CURRENT) USE OF ORAL HYPOGLYC 07/04/2017 TOMER PRESTON MD Ot Z79.899 OTHER SHIFT ENGINEER (CURRENT) DRUG THERAPY 07/04/2017 TOMER PRESTON MD [...] EDEMA 08/13/2017 TOMER PRESTON MD Ot Z79.84 SHIFT ENGINEER (CURRENT) USE OF ORAL HYPOGLYC 08/13/2017 TOMER PRESTON MD Ot Z79.899 OTHER PENITENTIARY (CURRENT) DRUG THERAPY 08/13/2017 TOMER PRESTON MD Ot Z82.49 FAMILY HX OF ISCHEM HEART DIS AND OTH DI 08/13/2017 TOMER PRESTON MD Ot Z85.820 PERSONAL HISTORY OF MALIGNANT MELANOMA O 08/21/2017 TOMER PRESTON MD Ot D50.9 IRON DEFICIENCY ANEMIA, UNSPECIFIED 08/21/2017 TOMER PRESTON MD Ot E11.9 TYPE 2 DIABETES MELLITUS WITHOUT COMPLIC 08/21/2017 TOMER PRESTON MD Ot E78.2 MIXED HYPERLIPIDEMIA 08/21/2017 TOMER PRESTON MD Ot I10 ESSENTIAL (PRIMARY) HYPERTENSION 08/21/2017 TOMER PRESTON MD Ot R60.0 LOCALIZED EDEMA 08/21/2017 TOMER PRESTON MD Ot Z79.84 SHIFT ENGINEER (CURRENT) USE OF ORAL HYPOGLYC 08/21/2017 TOMER [...] Ot R60.0 LOCALIZED EDEMA 10/01/2017 TOMER PRESTON MD Ot Z79.84 SHIFT ENGINEER (CURRENT) USE OF ORAL HYPOGLYC 10/01/2017 TOMER PRESTON MD, Ot Z79.899 OTHER SHIFT ENGINEER (CURRENT) DRUG THERAPY 10/01/2017 TOMER PRESTON MD, [...] ULCER OF RIGHT CALF 10/02/2017 JOHN MCCARTNEY MD, Ot D64.9 ANEMIA, UNSPECIFIED 10/02/2017 OLIVER COBOS MD, Ot E11.622 TYPE 2 DIABETES MELLITUS WITH OTHER SKIN 10/02/2017 OLIVER COBOS MD, Ot E66.01 MORBID (SEVERE) OBESITY DUE TO EXCESS CA 10/02/2017 OLIVER COBOS MD Ot 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 10/02/2017 OLIVER COBOS MD, Ot L97.212 NON-PRESSURE CHRONIC [...] Ot E78.5 HYPERLIPIDEMIA, UNSPECIFIED 10/02/2017 JOHN MCCARTNEY MD, Ot Z11.59 ENCOUNTER FOR SCREENING FOR OTHER VIRAL 10/02/2017 MCCARTNEY MD, JOHN D Ot E11.9 TYPE 2 DIABETES MELLITUS WITHOUT COMPLIC 10/02/2017 SHERRILL GAMBINO, JOHN Bello Ot E11.9 TYPE 2 DIABETES MELLITUS WITHOUT COMPLIC 10/02/2017 SHERRILL GAMBINO, JOHN Bello Ot I10 ESSENTIAL (PRIMARY) HYPERTENSION 10/02/2017 TOMER PRESTON MD Ot D50.9 IRON DEFICIENCY ANEMIA, UNSPECIFIED 10/02/2017 TOMER PRESTON MD Ot E11.9 TYPE 2 DIABETES MELLITUS WITHOUT COMPLIC 10/02/2017 TOMER PRESTON MD Ot E78.2 MIXED HYPERLIPIDEMIA 10/02/2017 TOMER PRESTON MD Ot I10 ESSENTIAL (PRIMARY) HYPERTENSION 10/02/2017 TOMER PRESTON MD Ot R60.0 LOCALIZED EDEMA 10/02/2017 TOMER PRESTON MD Ot Z79.84 PENITENTIARY (CURRENT) USE OF ORAL HYPOGLYC 10/02/2017 TOMER PRESTON MD Ot Z79.899 OTHER SHIFT ENGINEER (CURRENT) DRUG THERAPY 10/02/2017 TOMER PRESTON MD [...] EDEMA 10/03/2017 TOMER PRESTON MD Ot Z79.84 SHIFT ENGINEER (CURRENT) USE OF ORAL HYPOGLYC 10/03/2017 TOMER PRESTON MD Ot Z79.899 OTHER SHIFT ENGINEER (CURRENT) DRUG THERAPY 10/03/2017 TOMER PRESTON MD [...] EDEMA 10/09/2017 TOMER PRESTON MD Ot Z79.84 SHIFT ENGINEER (CURRENT) USE OF ORAL HYPOGLYC 10/09/2017 TOMER PRESTON MD Ot Z79.899 OTHER PENITENTIARY (CURRENT) DRUG THERAPY 10/09/2017 TOMER PRESTON MD [...] EDEMA 11/12/2017 TOMER PRESTON MD Ot Z79.84 SHIFT ENGINEER (CURRENT) USE OF ORAL HYPOGLYC 11/12/2017 TOMER [...] Ot E78.2 MIXED HYPERLIPIDEMIA 11/22/2017 TOMER PRESTON MD, Ot I10 ESSENTIAL (PRIMARY) HYPERTENSION 11/22/2017 TOMER PRESTON MD, Ot N18.3 CHRONIC KIDNEY DISEASE, STAGE 3 (MODERAT 11/22/2017 TOMER PRESTON MD Ot R60.0 LOCALIZED EDEMA 11/22/2017 TOMER PRESTON MD, Ot Z79.84 PENITENTIARY (CURRENT) USE OF ORAL HYPOGLYC 11/22/2017 TOMER PRESTON MD, Ot Z79.899 OTHER SHIFT ENGINEER (CURRENT) DRUG THERAPY 11/22/2017 TOMER PRESTON MD, Ot Z82.49 FAMILY HX OF ISCHEM HEART DIS AND OTH DI 11/22/2017 TOMER PRESTON MD, Ot Z85.820 PERSONAL HISTORY OF MALIGNANT MELANOMA O 12/05/2017 OLIVER COBOS MD, Ot E11.622 TYPE 2 DIABETES MELLITUS WITH OTHER SKIN 12/05/2017 OLIVER COBOS MD, Ot E66.01 MORBID (SEVERE) OBESITY DUE TO EXCESS CA 12/05/2017 OLIVER COBOS MD, Ot 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 12/05/2017 OLIVER COBOS MD, Ot L97.212 NON-PRESSURE CHRONIC ULCER OF RIGHT CALF 12/05/2017 OLIVER COBOS MD, Ot Z68.43 BODY MASS INDEX (BMI) 50-59.9 , ADULT 12/05/2017 TOMER PRESTON MD, Ot D50.9 IRON DEFICIENCY ANEMIA, UNSPECIFIED 12/05/2017 TOMER PRESTON MD, Ot D63.1 ANEMIA IN CHRONIC KIDNEY DISEASE 12/05/2017 TOMER PRESTON MD, Ot E11.9 TYPE 2 DIABETES MELLITUS WITHOUT COMPLIC 12/05/2017 TOMER PRESTON MD, Ot E78.2 MIXED HYPERLIPIDEMIA 12/05/2017 TOMER PRESTON MD Ot I10 ESSENTIAL (PRIMARY) HYPERTENSION 12/05/2017 TOMER PRESTON MD, Ot N18.3 CHRONIC KIDNEY DISEASE, STAGE 3 (MODERAT 12/05/2017 TOMER PRESTON MD Ot R60.0 LOCALIZED EDEMA 12/05/2017 TOMER PRESTON MD, Ot Z79.84 PENITENTIARY (CURRENT) USE OF ORAL HYPOGLYC 12/05/2017 TOMER PRESTON MD, Ot Z79.899 OTHER SHIFT ENGINEER (CURRENT) DRUG THERAPY 12/05/2017 TOMER PRESTON MD, Ot Z82.49 FAMILY HX OF ISCHEM HEART DIS AND OTH DI 12/05/2017 TOMER PRESTON MD, Ot Z85.820 PERSONAL HISTORY OF MALIGNANT MELANOMA O 12/19/2017 JANNET GOTTI MD, Ot D46.9 MYELODYSPLASTIC SYNDROME, UNSPECIFIED 12/19/2017 JANNET GOTTI MD Ot E11.622 TYPE 2 DIABETES MELLITUS WITH OTHER SKIN 12/19/2017 JANNET GOTTI MD Ot E66.01 MORBID (SEVERE) OBESITY DUE TO EXCESS CA 12/19/2017 JANNET GOTTI MD Ot E78.00 PURE HYPERCHOLESTEROLEMIA, UNSPECIFIED 12/19/2017 JANNET GOTTI MD Ot G47.33 OBSTRUCTIVE SLEEP APNEA (ADULT) (PEDIATR 12/19/2017 JANNET GOTTI MD Ot I12.9 HYPERTENSIVE CHRONIC KIDNEY DISEASE W ST 12/19/2017 JANNET GOTTI MD Ot I87.2 VENOUS INSUFFICIENCY (CHRONIC) (PERIPHER 12/19/2017 JANNET GOTTI MD Ot I89.0 LYMPHEDEMA, NOT ELSEWHERE CLASSIFIED 12/19/2017 JANNET GOTTI MD Ot I95.9 HYPOTENSION, UNSPECIFIED 12/19/2017 JANNET GOTTI MD Ot J45.901 UNSPECIFIED ASTHMA WITH (ACUTE) EXACERBA 12/19/2017 JANNET GOTTI MD Ot K44.9 DIAPHRAGMATIC HERNIA WITHOUT OBSTRUCTION 12/19/2017 JANNET GOTTI MD Ot L97.211 NON-PRS CHRONIC ULCER OF RIGHT CALF LIMI 12/19/2017 JANNET GOTTI MD Ot L97.811 NON-PRS CHR ULCER OTH PRT R LOW LEG LIMI 12/19/2017 JANNET GOTTI MD Ot L97.821 NON-PRS CHR ULCER OTH PRT L LOW LEG LIMI 12/19/2017 JANNET GOTTI MD Ot M17.2 BILATERAL POST-TRAUMATIC OSTEOARTHRITIS 12/19/2017 JANNET GOTTI MD Ot M54.9 DORSALGIA, UNSPECIFIED 12/19/2017 JANNET GOTTI MD Ot M81.0 AGE-RELATED OSTEOPOROSIS W/O CURRENT PAT 12/19/2017 JANNET GOTTI MD Ot N18.3 CHRONIC KIDNEY DISEASE, STAGE 3 (MODERAT 12/19/2017 JANNET GOTTI MD Ot R26.2 DIFFICULTY IN WALKING, NOT ELSEWHERE CLA 12/19/2017 JANNET GOTTI MD Ot R53.81 OTHER MALAISE 12/19/2017 JANNET GOTTI MD Ot Z68.42 BODY MASS INDEX (BMI) 45.0-49.9, ADULT 12/19/2017 JANNET GOTTI MD Ot Z85.820 PERSONAL HISTORY OF MALIGNANT MELANOMA O 12/19/2017 JANNET GOTTI MD Ot D46.9 MYELODYSPLASTIC SYNDROME, UNSPECIFIED 12/19/2017 JANNET GOTTI MD Ot E11.622 TYPE 2 DIABETES MELLITUS WITH OTHER SKIN 12/19/2017 JANNET GOTTI MD Ot E66.01 MORBID (SEVERE) OBESITY DUE TO EXCESS CA 12/19/2017 JANNET GOTTI MD Ot E78.00 PURE HYPERCHOLESTEROLEMIA, UNSPECIFIED 12/19/2017 JANNET GOTTI MD Ot G47.33 OBSTRUCTIVE SLEEP APNEA (ADULT) (PEDIATR 12/19/2017 JANNET GOTTI MD Ot I12.9 HYPERTENSIVE CHRONIC KIDNEY DISEASE W ST 12/19/2017 JANNET GOTTI MD Ot I87.2 VENOUS INSUFFICIENCY (CHRONIC) (PERIPHER 12/19/2017 JANNET GOTTI MD Ot I89.0 LYMPHEDEMA, NOT ELSEWHERE CLASSIFIED 12/19/2017 JANNET GOTTI MD Ot I95.9 HYPOTENSION, UNSPECIFIED 12/19/2017 JANNET GOTTI MD Ot J45.901 UNSPECIFIED ASTHMA WITH (ACUTE) EXACERBA 12/19/2017 JANNET GOTTI MD Ot K44.9 DIAPHRAGMATIC HERNIA WITHOUT OBSTRUCTION 12/19/2017 JANNET GOTTI MD Ot L97.211 NON-PRS CHRONIC ULCER OF RIGHT CALF LIMI 12/19/2017 JANNET GOTTI MD Ot L97.811 NON-PRS CHR ULCER OTH PRT R LOW LEG LIMI 12/19/2017 JANNET GOTTI MD Ot L97.821 NON-PRS CHR ULCER OTH PRT L LOW LEG LIMI 12/19/2017 JANNET GOTTI MD Ot M17.2 BILATERAL POST-TRAUMATIC OSTEOARTHRITIS 12/19/2017 JANNET GOTTI MD Ot M54.9 DORSALGIA, UNSPECIFIED 12/19/2017 JANNET GOTTI MD Ot M81.0 AGE-RELATED OSTEOPOROSIS W/O CURRENT PAT 12/19/2017 JANNET GOTTI MD Ot N18.3 CHRONIC KIDNEY DISEASE, STAGE 3 (MODERAT 12/19/2017 JANNET GOTTI MD Ot R26.2 DIFFICULTY IN WALKING, NOT ELSEWHERE CLA 12/19/2017 JANNET GOTTI MD Ot R53.81 OTHER MALAISE 12/19/2017 JANNET GOTTI MD Ot Z68.42 BODY MASS INDEX (BMI) 45.0-49.9, ADULT 12/19/2017 JANNET GOTTI MD Ot Z85.820 PERSONAL HISTORY OF MALIGNANT MELANOMA O 12/23/2017 JANNET GOTTI MD Ot D46.9 MYELODYSPLASTIC SYNDROME, UNSPECIFIED 12/23/2017 JANNET GOTTI MD Ot E11.622 TYPE 2 DIABETES MELLITUS WITH OTHER SKIN 12/23/2017 JANNET GOTTI MD Ot E66.01 MORBID (SEVERE) OBESITY DUE TO EXCESS CA 12/23/2017 JANNET GOTTI MD Ot E78.00 PURE HYPERCHOLESTEROLEMIA, UNSPECIFIED 12/23/2017 JANNET GOTTI MD Ot G47.33 OBSTRUCTIVE SLEEP APNEA (ADULT) (PEDIATR 12/23/2017 JANNET GOTTI MD Ot I12.9 HYPERTENSIVE CHRONIC KIDNEY DISEASE W ST 12/23/2017 JANNET GOTTI MD Ot I87.2 VENOUS INSUFFICIENCY (CHRONIC) (PERIPHER 12/23/2017 JANNET GOTTI MD Ot I89.0 LYMPHEDEMA, NOT ELSEWHERE CLASSIFIED 12/23/2017 JANNET GOTTI MD Ot I95.9 HYPOTENSION, UNSPECIFIED 12/23/2017 JANNET GOTTI MD Ot J45.901 UNSPECIFIED ASTHMA WITH (ACUTE) EXACERBA 12/23/2017 JANNET GOTTI MD Ot K44.9 DIAPHRAGMATIC HERNIA WITHOUT OBSTRUCTION 12/23/2017 JANNET GOTTI MD Ot L97.211 NON-PRS CHRONIC ULCER OF RIGHT CALF LIMI 12/23/2017 JANNET GOTTI MD Ot L97.811 NON-PRS CHR ULCER OTH PRT R LOW LEG LIMI 12/23/2017 JANNET GOTTI MD Ot L97.821 NON-PRS CHR ULCER OTH PRT L LOW LEG LIMI 12/23/2017 JANNET GOTTI MD Ot M17.2 BILATERAL POST-TRAUMATIC OSTEOARTHRITIS 12/23/2017 JANNET GOTTI MD Ot M54.9 DORSALGIA, UNSPECIFIED 12/23/2017 JANNET GOTTI MD Ot M81.0 AGE-RELATED OSTEOPOROSIS W/O CURRENT PAT 12/23/2017 JANNET GOTTI MD Ot N18.3 CHRONIC KIDNEY DISEASE, STAGE 3 (MODERAT 12/23/2017 JANNET GOTTI MD Ot R26.2 DIFFICULTY IN WALKING, NOT ELSEWHERE CLA 12/23/2017 JANNET GOTTI MD Ot R53.81 OTHER MALAISE 12/23/2017 JANNET GOTTI MD Ot Z68.42 BODY MASS INDEX (BMI) 45.0-49.9, ADULT 12/23/2017 JANNET GOTTI MD Ot Z85.820 PERSONAL HISTORY OF MALIGNANT MELANOMA O 12/24/2017 JANNET GOTTI MD Ot D46.9 MYELODYSPLASTIC SYNDROME, UNSPECIFIED 12/24/2017 JANNET GOTTI MD Ot E11.622 TYPE 2 DIABETES MELLITUS WITH OTHER SKIN 12/24/2017 JANNET GOTTI MD Ot E66.01 MORBID (SEVERE) OBESITY DUE TO EXCESS CA 12/24/2017 JANNET GOTTI MD Ot E78.00 PURE HYPERCHOLESTEROLEMIA, UNSPECIFIED 12/24/2017 JANNET GOTTI MD Ot G47.33 OBSTRUCTIVE SLEEP APNEA (ADULT) (PEDIATR 12/24/2017 JANNET GOTTI MD Ot I12.9 HYPERTENSIVE CHRONIC KIDNEY DISEASE W ST 12/24/2017 JANNET GOTTI MD Ot I87.2 VENOUS INSUFFICIENCY (CHRONIC) (PERIPHER 12/24/2017 JANNET GOTTI MD Ot I89.0 LYMPHEDEMA, NOT ELSEWHERE CLASSIFIED 12/24/2017 JANNET GOTTI MD Ot I95.9 HYPOTENSION, UNSPECIFIED 12/24/2017 JANNET GOTTI MD Ot J45.901 UNSPECIFIED ASTHMA WITH (ACUTE) EXACERBA 12/24/2017 JANNET GOTTI MD Ot K44.9 DIAPHRAGMATIC HERNIA WITHOUT OBSTRUCTION 12/24/2017 JANNET GOTTI MD Ot L97.211 NON-PRS CHRONIC ULCER OF RIGHT CALF LIMI 12/24/2017 JANNET GOTTI MD Ot L97.811 NON-PRS CHR ULCER OTH PRT R LOW LEG LIMI 12/24/2017 JANNET GOTTI MD Ot L97.821 NON-PRS CHR ULCER OTH PRT L LOW LEG LIMI 12/24/2017 JANNET GOTTI MD Ot M17.2 BILATERAL POST-TRAUMATIC OSTEOARTHRITIS 12/24/2017 JANNET GOTTI MD Ot M54.9 DORSALGIA, UNSPECIFIED 12/24/2017 JANNET GOTTI MD Ot M81.0 AGE-RELATED OSTEOPOROSIS W/O CURRENT PAT 12/24/2017 JANNET GOTTI MD Ot N18.3 CHRONIC KIDNEY DISEASE, STAGE 3 (MODERAT 12/24/2017 JANNET GOTTI MD Ot R26.2 DIFFICULTY IN WALKING, NOT ELSEWHERE CLA 12/24/2017 JANNET GOTTI MD Ot R53.81 OTHER MALAISE 12/24/2017 JANNET GOTTI MD Ot Z68.42 BODY MASS INDEX (BMI) 45.0-49.9, ADULT 12/24/2017 JANNET GOTTI MD Ot Z85.820 PERSONAL HISTORY OF MALIGNANT MELANOMA O 12/24/2017 JANNET GOTTI MD Ot D46.9 MYELODYSPLASTIC SYNDROME, UNSPECIFIED 12/24/2017 JANNET GOTTI MD Ot E11.622 TYPE 2 DIABETES MELLITUS WITH OTHER SKIN 12/24/2017 JANNET GOTTI MD Ot E11.9 TYPE 2 DIABETES MELLITUS WITHOUT COMPLIC 12/24/2017 JANNET GOTTI MD Ot E66.01 MORBID (SEVERE) OBESITY DUE TO EXCESS CA 12/24/2017 JANNET GOTTI MD Ot E78.00 PURE HYPERCHOLESTEROLEMIA, UNSPECIFIED 12/24/2017 JANNET GOTTI MD Ot G47.33 OBSTRUCTIVE SLEEP APNEA (ADULT) (PEDIATR 12/24/2017 JANNET GOTTI MD Ot I12.9 HYPERTENSIVE CHRONIC KIDNEY DISEASE W ST 12/24/2017 JANNET GOTTI MD Ot I87.2 VENOUS INSUFFICIENCY (CHRONIC) (PERIPHER 12/24/2017 JANNET GOTTI MD Ot I89.0 LYMPHEDEMA, NOT ELSEWHERE CLASSIFIED 12/24/2017 JANNET GOTTI MD Ot I95.9 HYPOTENSION, UNSPECIFIED 12/24/2017 JANNET GOTTI MD Ot J45.901 UNSPECIFIED ASTHMA WITH (ACUTE) EXACERBA 12/24/2017 JANNET GOTTI MD Ot K44.9 DIAPHRAGMATIC HERNIA WITHOUT OBSTRUCTION 12/24/2017 JANNET GOTTI MD Ot L97.211 NON-PRS CHRONIC ULCER OF RIGHT CALF LIMI 12/24/2017 JANNET GOTTI MD Ot L97.221 NON-PRS CHRONIC ULCER OF LEFT CALF LIMIT 12/24/2017 JANNET GOTTI MD Ot L97.811 NON-PRS CHR ULCER OTH PRT R LOW LEG LIMI 12/24/2017 JANNET GOTTI MD, Ot L97.821 NON-PRS CHR ULCER OTH PRT L LOW LEG LIMI 12/24/2017 JANNET GOTTI MD, Ot M17.2 BILATERAL POST-TRAUMATIC OSTEOARTHRITIS 12/24/2017 JANNET GOTTI MD, Ot M54.9 DORSALGIA, UNSPECIFIED 12/24/2017 JANNET GOTTI MD, Ot M81.0 AGE-RELATED OSTEOPOROSIS W/O CURRENT PAT 12/24/2017 JANNET GOTTI MD, Ot N18.3 CHRONIC KIDNEY DISEASE, STAGE 3 (MODERAT 12/24/2017 JANNET GOTTI MD, Ot R26.2 DIFFICULTY IN WALKING, NOT ELSEWHERE CLA 12/24/2017 JANNET GOTTI MD, Ot R53.81 OTHER MALAISE 12/24/2017 JANNET GOTTI MD, Ot Z23 ENCOUNTER FOR IMMUNIZATION 12/24/2017 JANNET GOTTI MD, Ot Z68.42 BODY MASS INDEX (BMI) 45.0-49.9, ADULT 12/24/2017 JANNET GOTTI MD, Ot Z85.820 PERSONAL HISTORY OF MALIGNANT MELANOMA O 12/25/2017 TOMER PRESTON MD Ot D50.9 IRON DEFICIENCY ANEMIA, UNSPECIFIED 12/25/2017 TOMER PRESTON MD Ot D63.1 ANEMIA IN CHRONIC KIDNEY DISEASE 12/25/2017 TOMER PRESTON MD Ot E11.9 TYPE 2 DIABETES MELLITUS WITHOUT COMPLIC 12/25/2017 TOMER PRESTON MD Ot E78.2 MIXED HYPERLIPIDEMIA 12/25/2017 TOMER PRESTON MD Ot I10 ESSENTIAL (PRIMARY) HYPERTENSION 12/25/2017 TOMER PRESTON MD, Ot N18.3 CHRONIC KIDNEY DISEASE, STAGE 3 (MODERAT 12/25/2017 TOMER PRESTON MD Ot R60.0 LOCALIZED EDEMA 12/25/2017 TOMER PRESTON MD Ot Z79.84 SHIFT ENGINEER (CURRENT) USE OF ORAL HYPOGLYC 12/25/2017 TOMER PRESTON MD Ot Z79.899 OTHER SHIFT ENGINEER (CURRENT) DRUG THERAPY 12/25/2017 TOMER PRESTON MD Ot Z82.49 FAMILY HX OF ISCHEM HEART DIS AND OTH DI 12/25/2017 TOMER PRESTON MD, Ot Z85.820 PERSONAL HISTORY OF MALIGNANT MELANOMA O 12/31/2017 DIA CORDERO APRN Ot E11.622 TYPE 2 DIABETES MELLITUS WITH OTHER SKIN 12/31/2017 DIA CORDERO APRN Ot E66.01 MORBID (SEVERE) OBESITY DUE TO EXCESS CA 12/31/2017 DIA CORDERO APRN Ot I87.2 VENOUS INSUFFICIENCY (CHRONIC) (PERIPHER 12/31/2017 DIA CORDERO APRN Ot L97.212 NON-PRESSURE CHRONIC ULCER OF RIGHT CALF 12/31/2017 DIA CORDERO APRN Ot L97.222 NON-PRESSURE CHRONIC ULCER OF LEFT CALF 01/07/2018 TOMER PRESTON MD Ot D50.9 IRON DEFICIENCY ANEMIA, UNSPECIFIED 01/07/2018 TOMER PRESTON MD Ot D63.1 ANEMIA IN CHRONIC KIDNEY DISEASE 01/07/2018 TOMER PRESTON MD Ot E11.9 TYPE 2 DIABETES MELLITUS WITHOUT COMPLIC 01/07/2018 TOMER PRESTON MD Ot E78.2 MIXED HYPERLIPIDEMIA 01/07/2018 TOMER PRESTON MD Ot I10 ESSENTIAL (PRIMARY) HYPERTENSION 01/07/2018 TOMER PRESTON MD Ot N18.3 CHRONIC KIDNEY DISEASE, STAGE 3 (MODERAT 01/07/2018 TOMER PRESTON MD Ot R60.0 LOCALIZED EDEMA 01/07/2018 TOMER PRESTON MD Ot Z79.84 SHIFT ENGINEER (CURRENT) USE OF ORAL HYPOGLYC 01/07/2018 TOMER PRESTON MD Ot Z79.899 OTHER PENITENTIARY (CURRENT) DRUG THERAPY 01/07/2018 TOMER PRESTON MD Ot Z82.49 FAMILY HX OF ISCHEM HEART DIS AND OTH DI 01/07/2018 TOMER PRESTON MD Ot Z85.820 PERSONAL HISTORY OF MALIGNANT MELANOMA O 01/07/2018 SHERRILL GAMBINO, JOHN Bello Ot V76.12 OTH SCREEN MAMMO-MALIGN NEOPLASM OF ALISTAIR 01/07/2018 DIA CORDERO APRN Ot E11.622 TYPE 2 DIABETES MELLITUS WITH OTHER SKIN 01/07/2018 DIA CORDERO APRN Ot E66.01 MORBID (SEVERE) OBESITY DUE TO EXCESS CA 01/07/2018 DIA CORDERO APRN Ot 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 01/07/2018 DIA CORDERO APRN Ot L97.212 NON-PRESSURE CHRONIC ULCER OF RIGHT CALF 01/07/2018 JOHN MCCARTNEY MD Ot D64.9 ANEMIA, UNSPECIFIED 01/07/2018 CHANDRIKA GAMBINO, OLIVER Montanez Ot E11.622 TYPE 2 DIABETES MELLITUS WITH OTHER SKIN 01/07/2018 OLIVER COBOS MD Ot E66.01 MORBID (SEVERE) OBESITY DUE TO EXCESS CA 01/07/2018 OLIVER COBOS MD, Ot 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 01/07/2018 OLIVER COBOS MD, Ot L97.212 NON-PRESSURE CHRONIC ULCER OF RIGHT CALF 01/07/2018 OLIVER COBOS MD, Ot Z68.43 BODY MASS INDEX (BMI) 50-59.9 , ADULT 01/07/2018 OLIVER COBOS MD, Ot Z45.2 ENCOUNTER FOR ADJUSTMENT AND MANAGEMENT 01/07/2018 JOHN MCCARTNEY MD Ot E11.9 TYPE 2 DIABETES MELLITUS WITHOUT COMPLIC 01/07/2018 JOHN MCCARTNEY MD, Ot E55.9 VITAMIN D DEFICIENCY, UNSPECIFIED 01/07/2018 JOHN MCCARTNEY MD, Ot E78.5 HYPERLIPIDEMIA, UNSPECIFIED 01/07/2018 JOHN MCCARTNEY MD, Ot Z11.59 ENCOUNTER FOR SCREENING FOR OTHER VIRAL 01/07/2018 JOHN MCCARTNEY MD, Ot E11.9 TYPE 2 DIABETES MELLITUS WITHOUT COMPLIC 01/07/2018 JOHN MCCARTNEY MD Ot E11.9 TYPE 2 DIABETES MELLITUS WITHOUT COMPLIC 01/07/2018 JOHN MCCARTNEY MD Ot I10 ESSENTIAL (PRIMARY) HYPERTENSION 01/07/2018 JOHN MCCARTNEY MD Ot E11.65 TYPE 2 DIABETES MELLITUS WITH HYPERGLYCE 01/07/2018 JOHN MCCARTNEY MD Ot Z53.9 PROCEDURE AND TREATMENT NOT CARRIED OUT, 01/07/2018 DIA CORDERO APRN Ot E11.622 TYPE 2 DIABETES MELLITUS WITH OTHER SKIN 01/07/2018 DIA CORDERO APRN Ot E66.01 MORBID (SEVERE) OBESITY DUE TO EXCESS CA 01/07/2018 DIA CORDERO APRN Ot I87.2 VENOUS INSUFFICIENCY (CHRONIC) (PERIPHER 01/07/2018 DIA CORDERO APRN Ot L97.212 NON-PRESSURE CHRONIC ULCER OF RIGHT CALF 01/07/2018 DIA CORDERO APRN Ot L97.222 NON-PRESSURE CHRONIC ULCER OF LEFT CALF 01/07/2018 OLIVER COBOS MD Ot L97.212 NON-PRESSURE CHRONIC ULCER OF RIGHT CALF 01/08/2018 OLIVER COBOS MD Ot E11.622 TYPE 2 DIABETES MELLITUS WITH OTHER SKIN 01/08/2018 OLIVER COBOS MD, Ot E66.01 MORBID (SEVERE) OBESITY DUE TO EXCESS CA 01/08/2018 OLIVER COBOS MD Ot I87.333 CHRONIC VENOUS HTN W ULCER AND INFLAM OF 01/08/2018 OLIVER COBOS MD, Ot L97.212 NON-PRESSURE CHRONIC ULCER OF RIGHT CALF 01/08/2018 OLIVER COBOS MD Ot L97.222 NON-PRESSURE CHRONIC ULCER OF LEFT CALF 01/08/2018 OLIVER COBOS MD, Ot Z68.43 BODY MASS INDEX (BMI) 50-59.9, ADULT 01/14/2018 SHERRILL GAMBINO, JOHN Bello Ot I49.9 CARDIAC ARRHYTHMIA, UNSPECIFIED 01/14/2018 OLIVER COBOS MD Ot E11.622 TYPE 2 DIABETES MELLITUS WITH OTHER SKIN 01/14/2018 OLIVER COBOS MD, Ot E66.01 MORBID (SEVERE) OBESITY DUE TO EXCESS CA 01/14/2018 OLIVER COBOS MD Ot I87.2 VENOUS INSUFFICIENCY (CHRONIC) (PERIPHER 01/14/2018 OLIVER COBOS MD Ot I87.333 CHRONIC VENOUS HTN W ULCER AND INFLAM OF 01/14/2018 OLIVER COBOS MD Ot L97.212 NON-PRESSURE CHRONIC ULCER OF RIGHT CALF 01/14/2018 OLIVER COBOS MD Ot L97.222 NON-PRESSURE CHRONIC ULCER OF LEFT CALF 01/14/2018 OLIVER COBOS MD, Ot Z68.43 BODY MASS INDEX (BMI) 50-59.9, ADULT 01/14/2018 OLIVER COBOS MD Ot E11.622 TYPE 2 DIABETES MELLITUS WITH OTHER SKIN 01/14/2018 OLIVER COBOS MD Ot E66.01 MORBID (SEVERE) OBESITY DUE TO EXCESS CA 01/14/2018 OLIVER COBOS MD Ot I87.2 VENOUS INSUFFICIENCY (CHRONIC) (PERIPHER 01/14/2018 OLIVER COBOS MD Ot I87.333 CHRONIC VENOUS HTN W ULCER AND INFLAM OF 01/14/2018 OLIVER COBOS MD, Ot L97.212 NON-PRESSURE CHRONIC ULCER OF RIGHT CALF 01/14/2018 OLIVER COBOS MD Ot L97.222 NON-PRESSURE CHRONIC ULCER OF LEFT CALF 01/14/2018 OLIVER COBOS MD, Ot Z68.43 BODY MASS INDEX (BMI) 50-59.9, ADULT 01/21/2018 DIA CORDERO APRN Ot E11.622 TYPE 2 DIABETES MELLITUS WITH OTHER SKIN 01/21/2018 DIA CORDERO BULB ASSEMBLER Ot E66.01 MORBID (SEVERE) OBESITY DUE TO EXCESS CA 01/21/2018 DIA CORDERO BULB ASSEMBLER Ot I87.333 CHRONIC VENOUS HTN W ULCER AND INFLAM OF 01/21/2018 DIA CORDERO BULB ASSEMBLER Ot L97.212 NON-PRESSURE CHRONIC ULCER OF RIGHT CALF 01/21/2018 DIA CORDERO BULB ASSEMBLER Ot L97.222 NON-PRESSURE CHRONIC ULCER OF LEFT CALF 01/21/2018 DIA CORDERO BULB ASSEMBLER Ot E11.622 TYPE 2 DIABETES MELLITUS WITH OTHER SKIN 01/21/2018 DIA CORDERO BULB ASSEMBLER Ot E66.01 MORBID (SEVERE) OBESITY DUE TO EXCESS CA 01/21/2018 DIA CORDERO BULB ASSEMBLER Ot I87.2 VENOUS INSUFFICIENCY (CHRONIC) (PERIPHER 01/21/2018 DIA CORDERO BULB ASSEMBLER Ot L97.212 NON-PRESSURE CHRONIC ULCER OF RIGHT CALF 01/21/2018 DIA CORDERO APRN Ot L97.222 NON-PRESSURE CHRONIC ULCER OF LEFT CALF Procedures There is no data. Results Test Result Range Bacteria identification in isolate by anaerobe culture - 10/28/15 10:06 Bacteria identification in isolate by anaerobe culture NOANA NRG Gram stain microscopy - 10/28/15 10:06 GRAM STAIN RESULT FEW WBC'S, NO BACTERIA OBSERVED NRG Bacteria identification in wound by culture - 10/28/15 10:06 Bacteria identification in wound by culture [id number] NRG QUANTITY OF GROWTH Scant Growth NRG Bacteria identification in isolate by anaerobe culture - 11/11/15 11:30 Bacteria identification in isolate by anaerobe culture NOANA NRG Gram stain microscopy - 11/11/15 11:30 GRAM STAIN RESULT FEW WBC'S, NO BACTERIA OBSERVED NRG Bacteria identification in wound by culture - 11/11/15 11:30 Bacteria identification in wound by culture [id number] NRG FREE TEXT EXTERNAL 2 COLONY TYPES [...] 09:30 Bacteria identification in wound by culture [id number] NRG QUANTITY OF GROWTH Scant Growth NRG Bacteria identification in isolate by anaerobe culture - 01/06/16 09:30 Bacteria identification in isolate by anaerobe culture NOANA NRG Gram stain microscopy - 01/06/16 09:30 GRAM STAIN RESULT FEW WBC'S, NO BACTERIA OBSERVED NRG Bacteria identification in wound by culture - 01/06/16 09:30 Bacteria identification in wound by culture [id number] NRG FREE TEXT EXTERNAL PLEASE NOTIFY MICRO [...] 5.6 MEAN BLOOD GLUCOSE 137 % <=126 Capillary blood glucose measurement by glucometer (mass/volume) - 12/05/17 16: 06 Capillary blood glucose measurement by glucometer (mass/volume) 129 mg/dL 70-110 Capillary blood glucose measurement by glucometer (mass/volume) - 12/06/17 04: 59 Capillary blood glucose measurement by glucometer (mass/volume) 79 mg/dL 70-110 Capillary blood glucose measurement by glucometer (mass/volume) - 12/06/17 17: 05 Capillary blood glucose measurement by glucometer (mass/volume) 94 mg/dL 70-110 Complete blood count (CBC) with automated white blood cell (WBC) differential - 12/07/17 04:55 Blood leukocytes automated count (number/volume) 8.3 10*3/uL 4.3-11.0 Blood erythrocytes automated count (number/volume) 2.91 10*6/uL 4.35-5.85 Venous blood hemoglobin measurement (mass/volume) 8.5 g/dL 11.5-16.0 Blood hematocrit (volume fraction) 27 % 35-52 Automated erythrocyte mean corpuscular volume 92 [foz_us] 80-99 Automated erythrocyte mean corpuscular hemoglobin (mass per erythrocyte) 29 pg 25-34 Automated erythrocyte mean corpuscular hemoglobin concentration measurement ( mass/volume) 32 g/dL 32-36 Automated erythrocyte distribution width ratio 15.5 % 10.0-14.5 Automated blood platelet count (count/volume) 273 10*3/uL 130-400 Automated blood platelet mean volume measurement 8.1 [foz_us] 7.4-10.4 Automated blood neutrophils/100 leukocytes 76 % 42-75 Automated blood lymphocytes/100 leukocytes 14 % 12-44 Blood monocytes/100 leukocytes 9 % 0-12 Automated blood eosinophils/100 leukocytes 1 % 0-10 Automated blood basophils/100 leukocytes 0 % 0-10 Blood neutrophils automated count (number/volume) 6.3 10*3 1.8-7.8 Blood lymphocytes automated count (number/volume) 1.1 10*3 1.0-4.0 Blood monocytes automated count (number/volume) 0.8 10*3 0.0-1.0 Automated eosinophil count 0.1 10*3/uL 0.0-0.3 Automated blood basophil count (count/volume) 0.0 10*3/uL 0.0-0.1 Comprehensive metabolic panel - 12/07/17 04:55 Serum or plasma sodium measurement (moles/volume) 135 mmol/L 135-145 Serum or plasma potassium measurement (moles/volume) 4.6 mmol/L 3.6-5.0 Serum or plasma chloride measurement (moles/volume) 107 mmol/L 98-107 Carbon dioxide 18 mmol/L 21-32 Serum or plasma anion gap determination (moles/volume) 10 mmol/L 5-14 Serum or plasma urea nitrogen measurement (mass/volume) 24 mg/dL 7-18 Serum or plasma creatinine measurement (mass/volume) 0.84 mg/dL 0.60-1.30 Serum or plasma urea nitrogen/creatinine mass ratio 29 NRG Serum or plasma creatinine measurement with calculation of estimated glomerular filtration rate > NRG Serum or plasma glucose measurement (mass/volume) 77 mg/dL 70-105 Serum or plasma calcium measurement (mass/volume) 8.1 mg/dL 8.5-10.1 Serum or plasma total bilirubin measurement (mass/volume) 0.4 mg/dL 0.1-1.0 Serum or plasma alkaline phosphatase measurement (enzymatic activity/volume) 125 U/L 40-136 Serum or plasma aspartate aminotransferase measurement (enzymatic activity/ volume) 13 U/L 5-34 Serum or plasma alanine aminotransferase measurement (enzymatic activity/volume ) 12 U/L 0-55 Serum or plasma protein measurement (mass/volume) 4.8 g/dL 6.4-8.2 Serum or plasma albumin measurement (mass/volume) 2.5 g/dL 3.2-4.5 CALCIUM CORRECTED 9.3 mg/dL 8.5-10.1 Capillary blood glucose measurement by glucometer (mass/volume) - 12/07/17 16: 42 Capillary blood glucose measurement by glucometer (mass/volume) 97 mg/dL 70-110 Capillary blood glucose measurement by glucometer (mass/volume) - 12/08/17 06: 34 Capillary blood glucose measurement by glucometer (mass/volume) 74 mg/dL 70-110 Capillary blood glucose measurement by glucometer (mass/volume) - 12/08/17 17: 21 Capillary blood glucose measurement by glucometer (mass/volume) 114 mg/dL 70-110 Capillary blood glucose measurement by glucometer (mass/volume) - 12/09/17 05: 22 Capillary blood glucose measurement by glucometer (mass/volume) 87 mg/dL 70-110 Capillary blood glucose measurement by glucometer (mass/volume) - 12/09/17 16: 26 Capillary blood glucose measurement by glucometer (mass/volume) 112 mg/dL 70-110 Capillary blood glucose measurement by glucometer (mass/volume) - 12/10/17 04: 31 Capillary blood glucose measurement by glucometer (mass/volume) 96 mg/dL 70-110 Capillary blood glucose measurement by glucometer (mass/volume) - 12/10/17 16: 42 Capillary blood glucose measurement by glucometer (mass/volume) 152 mg/dL 70-110 Capillary blood glucose measurement by glucometer (mass/volume) - 12/11/17 05: 03 Capillary blood glucose measurement by glucometer (mass/volume) 116 mg/dL 70-110 Complete blood count (CBC) with automated white blood cell (WBC) differential - 12/11/17 05:30 Blood leukocytes automated count (number/volume) 7.1 10*3/uL 4.3-11.0 Blood erythrocytes automated count (number/volume) 2.68 10*6/uL 4.35-5.85 Venous blood hemoglobin measurement (mass/volume) 7.8 g/dL 11.5-16.0 Blood hematocrit (volume fraction) 25 % 35-52 Automated erythrocyte mean corpuscular volume 93 [foz_us] 80-99 Automated erythrocyte mean corpuscular hemoglobin (mass per erythrocyte) 29 pg 25-34 Automated erythrocyte mean corpuscular hemoglobin concentration measurement ( mass/volume) 32 g/dL 32-36 Automated erythrocyte distribution width ratio 15.6 % 10.0-14.5 Automated blood platelet count (count/volume) 311 10*3/uL 130-400 Automated blood platelet mean volume measurement 8.1 [foz_us] 7.4-10.4 Automated blood neutrophils/100 leukocytes 65 % 42-75 Automated blood lymphocytes/100 leukocytes 19 % 12-44 Blood monocytes/100 leukocytes 13 % 0-12 Automated blood eosinophils/100 leukocytes 3 % 0-10 Automated blood basophils/100 leukocytes 0 % 0-10 Blood neutrophils automated count (number/volume) 4.6 10*3 1.8-7.8 Blood lymphocytes automated count (number/volume) 1.4 10*3 1.0-4.0 Blood monocytes automated count (number/volume) 0.9 10*3 0.0-1.0 Automated eosinophil count 0.2 10*3/uL 0.0-0.3 Automated blood basophil count (count/volume) 0.0 10*3/uL 0.0-0.1 Whole blood basic metabolic panel - 12/11/17 05:30 Serum or plasma sodium measurement (moles/volume) 135 mmol/L 135-145 Serum or plasma potassium measurement (moles/volume) 4.6 mmol/L 3.6-5.0 Serum or plasma chloride measurement (moles/volume) 108 mmol/L 98-107 Carbon dioxide 19 mmol/L 21-32 Serum or plasma anion gap determination (moles/volume) 8 mmol/L 5-14 Serum or plasma urea nitrogen measurement (mass/volume) 22 mg/dL 7-18 Serum or plasma creatinine measurement (mass/volume) 0.85 mg/dL 0.60-1.30 Serum or plasma urea nitrogen/creatinine mass ratio 26 NRG Serum or plasma creatinine measurement with calculation of estimated glomerular filtration rate > NRG Serum or plasma glucose measurement (mass/volume) 94 mg/dL 70-105 Serum or plasma calcium measurement (mass/volume) 8.0 mg/dL 8.5-10.1 Serum iron and total iron binding capacity panel - 12/11/17 05:30 Serum or plasma iron measurement (mass/volume) 17 % 35- 180 Total iron binding capacity and transferrin saturation measurement 11 % 15-50 Iron binding capacity [mass/volume] in serum or plasma 157 % 280-380 UIBC (unsaturated iron binding capacity) 140 % 55-450 Serum or plasma ferritin measurement (mass/volume) 202.1 % 20.0-177.0 Capillary blood glucose measurement by glucometer (mass/volume) - 12/11/17 15: 50 Capillary blood glucose measurement by glucometer (mass/volume) 123 mg/dL 70-110 Capillary blood glucose measurement by glucometer (mass/volume) - 12/12/17 05: 25 Capillary blood glucose measurement by glucometer (mass/volume) 117 mg/dL 70-110 Capillary blood glucose measurement by glucometer (mass/volume) - 12/12/17 11: 10 Capillary blood glucose measurement by glucometer (mass/volume) 94 mg/dL 70-110 Capillary blood glucose measurement by glucometer (mass/volume) - 12/12/17 15: 47 Capillary blood glucose measurement by glucometer (mass/volume) 113 mg/dL 70-110 Automated blood complete blood count (hemogram) panel - 12/13/17 05:15 Blood leukocytes automated count (number/volume) 6.8 10*3/uL 4.3-11.0 Blood erythrocytes automated count (number/volume) 2.69 10*6/uL 4.35-5.85 Venous blood hemoglobin measurement (mass/volume) 7.9 g/dL 11.5-16.0 Blood hematocrit (volume fraction) 25 % 35-52 Automated erythrocyte mean corpuscular volume 93 [foz_us] 80-99 Automated erythrocyte mean corpuscular hemoglobin (mass per erythrocyte) 29 pg 25-34 Automated erythrocyte mean corpuscular hemoglobin concentration measurement ( mass/volume) 32 g/dL 32-36 Automated erythrocyte distribution width ratio 16.0 % 10.0-14.5 Automated blood platelet count (count/volume) 318 10*3/uL 130-400 Automated blood platelet mean volume measurement 8.4 [foz_us] 7.4-10.4 PT panel in platelet poor plasma by coagulation assay - 12/13/17 05:15 Prothrombin time (PT) in platelet poor plasma by coagulation assay 13.7 s 12.2-14.7 INR in platelet poor plasma or blood by coagulation assay 1.1 0.8-1.4 Activated partial thromboplastin time (aPTT) in platelet poor plasma bycoagulation assay - 12/13/17 05:15 Activated partial thromboplastin time (aPTT) in platelet poor plasma bycoagulation assay 32 s 24-35 Comprehensive metabolic panel - 12/13/17 05:15 Serum or plasma sodium measurement (moles/volume) 140 mmol/L 135-145 Serum or plasma potassium measurement (moles/volume) 4.8 mmol/L 3.6-5.0 Serum or plasma chloride measurement (moles/volume) 114 mmol/L 98-107 Carbon dioxide 19 mmol/L 21-32 Serum or plasma anion gap determination (moles/volume) 7 mmol/L 5-14 Serum or plasma urea nitrogen measurement (mass/volume) 15 mg/dL 7-18 Serum or plasma creatinine measurement (mass/volume) 0.77 mg/dL 0.60-1.30 Serum or plasma urea nitrogen/creatinine mass ratio 19 NRG Serum or plasma creatinine measurement with calculation of estimated glomerular filtration rate > NRG Serum or plasma glucose measurement (mass/volume) 92 mg/dL 70-105 Serum or plasma calcium measurement (mass/volume) 8.1 mg/dL 8.5-10.1 Serum or plasma total bilirubin measurement (mass/volume) 0.2 mg/dL 0.1-1.0 Serum or plasma alkaline phosphatase measurement (enzymatic activity/volume) 110 U/L 40-136 Serum or plasma aspartate aminotransferase measurement (enzymatic activity/ volume) 28 U/L 5-34 Serum or plasma alanine aminotransferase measurement (enzymatic activity/volume ) 13 U/L 0-55 Serum or plasma protein measurement (mass/volume) 5.0 g/dL 6.4-8.2 Serum or plasma albumin measurement (mass/volume) 2.6 g/dL 3.2-4.5 CALCIUM CORRECTED 9.2 mg/dL 8.5-10.1 Capillary blood glucose measurement by glucometer (mass/volume) - 12/13/17 05: 17 Capillary blood glucose measurement by glucometer (mass/volume) 90 mg/dL 70-110 Capillary blood glucose measurement by glucometer (mass/volume) - 12/13/17 16: 27 Capillary blood glucose measurement by glucometer (mass/volume) 113 mg/dL 70-110 Capillary blood glucose measurement by glucometer (mass/volume) - 12/14/17 06: 46 Capillary blood glucose measurement by glucometer (mass/volume) 97 mg/dL 70-110 Capillary blood glucose measurement by glucometer (mass/volume) - 12/14/17 16: 42 Capillary blood glucose measurement by glucometer (mass/volume) 104 mg/dL 70-110 Capillary blood glucose measurement by glucometer (mass/volume) - 12/15/17 05: 56 Capillary blood glucose measurement by glucometer (mass/volume) 106 mg/dL 70-110 Capillary blood glucose measurement by glucometer (mass/volume) - 12/15/17 16: 36 Capillary blood glucose measurement by glucometer (mass/volume) 141 mg/dL 70-110 Capillary blood glucose measurement by glucometer (mass/volume) - 12/16/17 05: 35 Capillary blood glucose measurement by glucometer (mass/volume) 98 mg/dL 70-110 Capillary blood glucose measurement by glucometer (mass/volume) - 12/16/17 17: 02 Capillary blood glucose measurement by glucometer (mass/volume) 123 mg/dL 70-110 Capillary blood glucose measurement by glucometer (mass/volume) - 12/17/17 06: 18 Capillary blood glucose measurement by glucometer (mass/volume) 112 mg/dL 70-110 Complete blood count (CBC) with automated white blood cell (WBC) differential - 12/17/17 09:19 Blood leukocytes automated count (number/volume) 8.8 10*3/uL 4.3-11.0 Blood erythrocytes automated count (number/volume) 2.88 10*6/uL 4.35-5.85 Venous blood hemoglobin measurement (mass/volume) 8.4 g/dL 11.5-16.0 Blood hematocrit (volume fraction) 27 % 35-52 Automated erythrocyte mean corpuscular volume 93 [foz_us] 80-99 Automated erythrocyte mean corpuscular hemoglobin (mass per erythrocyte) 29 pg 25-34 Automated erythrocyte mean corpuscular hemoglobin concentration measurement ( mass/volume) 31 g/dL 32-36 Automated erythrocyte distribution width ratio 15.9 % 10.0-14.5 Automated blood platelet count (count/volume) 365 10*3/uL 130-400 Automated blood platelet mean volume measurement 8.3 [foz_us] 7.4-10.4 Automated blood neutrophils/100 leukocytes 79 % 42-75 Automated blood lymphocytes/100 leukocytes 10 % 12-44 Blood monocytes/100 leukocytes 9 % 0-12 Automated blood eosinophils/100 leukocytes 2 % 0-10 Automated blood basophils/100 leukocytes 0 % 0-10 Blood neutrophils automated count (number/volume) 7.0 10*3 1.8-7.8 Blood lymphocytes automated count (number/volume) 0.9 10*3 1.0-4.0 Blood monocytes automated count (number/volume) 0.8 10*3 0.0-1.0 Automated eosinophil count 0.2 10*3/uL 0.0-0.3 Automated blood basophil count (count/volume) 0.0 10*3/uL 0.0-0.1 Capillary blood glucose measurement by glucometer (mass/volume) - 12/17/17 17: 38 Capillary blood glucose measurement by glucometer (mass/volume) 119 mg/dL 70-110 Capillary blood glucose measurement by glucometer (mass/volume) - 12/18/17 05: 54 Capillary blood glucose measurement by glucometer (mass/volume) 89 mg/dL 70-110 Capillary blood glucose measurement by glucometer (mass/volume) - 12/18/17 15: 09 Capillary blood glucose measurement by glucometer (mass/volume) 143 mg/dL 70-110 Capillary blood glucose measurement by glucometer (mass/volume) - 12/19/17 06: 19 Capillary blood glucose measurement by glucometer (mass/volume) 97 mg/dL 70-110 Capillary blood glucose measurement by glucometer (mass/volume) - 12/19/17 16: 14 Capillary blood glucose measurement by glucometer (mass/volume) 116 mg/dL 70-110 Capillary blood glucose measurement by glucometer (mass/volume) - 12/20/17 04: 45 Capillary blood glucose measurement by glucometer (mass/volume) 96 mg/dL 70-110 Automated blood complete blood count (hemogram) panel - 12/20/17 06:10 Blood leukocytes automated count (number/volume) 6.1 10*3/uL 4.3-11.0 Blood erythrocytes automated count (number/volume) 2.68 10*6/uL 4.35-5.85 Venous blood hemoglobin measurement (mass/volume) 7.9 g/dL 11.5-16.0 Blood hematocrit (volume fraction) 25 % 35-52 Automated erythrocyte mean corpuscular volume 94 [foz_us] 80-99 Automated erythrocyte mean corpuscular hemoglobin (mass per erythrocyte) 30 pg 25-34 Automated erythrocyte mean corpuscular hemoglobin concentration measurement ( mass/volume) 31 g/dL 32-36 Automated erythrocyte distribution width ratio 16.5 % 10.0-14.5 Automated blood platelet count (count/volume) 339 10*3/uL 130-400 Automated blood platelet mean volume measurement 8.4 [foz_us] 7.4-10.4 Comprehensive metabolic panel - 12/20/17 06:10 Serum or plasma sodium measurement (moles/volume) 139 mmol/L 135-145 Serum or plasma potassium measurement (moles/volume) 4.3 mmol/L 3.6-5.0 Serum or plasma chloride measurement (moles/volume) 111 mmol/L 98-107 Carbon dioxide 22 mmol/L 21-32 Serum or plasma anion gap determination (moles/volume) 6 mmol/L 5-14 Serum or plasma urea nitrogen measurement (mass/volume) 11 mg/dL 7-18 Serum or plasma creatinine measurement (mass/volume) 0.78 mg/dL 0.60-1.30 Serum or plasma urea nitrogen/creatinine mass ratio 14 NRG Serum or plasma creatinine measurement with calculation of estimated glomerular filtration rate > NRG Serum or plasma glucose measurement (mass/volume) 91 mg/dL 70-105 Serum or plasma calcium measurement (mass/volume) 8.1 mg/dL 8.5-10.1 Serum or plasma total bilirubin measurement (mass/volume) 0.2 mg/dL 0.1-1.0 Serum or plasma alkaline phosphatase measurement (enzymatic activity/volume) 134 U/L 40-136 Serum or plasma aspartate aminotransferase measurement (enzymatic activity/ volume) 22 U/L 5-34 Serum or plasma alanine aminotransferase measurement (enzymatic activity/volume ) 12 U/L 0-55 Serum or plasma protein measurement (mass/volume) 5.3 g/dL 6.4-8.2 Serum or plasma albumin measurement (mass/volume) 2.6 g/dL 3.2-4.5 CALCIUM CORRECTED 9.2 mg/dL 8.5-10.1 Capillary blood glucose measurement by glucometer (mass/volume) - 12/20/17 15: 52 Capillary blood glucose measurement by glucometer (mass/volume) 100 mg/dL 70-110 Capillary blood glucose measurement by glucometer (mass/volume) - 12/21/17 05: 11 Capillary blood glucose measurement by glucometer (mass/volume) 105 mg/dL 70-110 Capillary blood glucose measurement by glucometer (mass/volume) - 12/21/17 16: 15 Capillary blood glucose measurement by glucometer (mass/volume) 140 mg/dL 70-110 Capillary blood glucose measurement by glucometer (mass/volume) - 12/22/17 05: 12 Capillary blood glucose measurement by glucometer (mass/volume) 111 mg/dL 70-110 Capillary blood glucose measurement by glucometer (mass/volume) - 12/22/17 15: 38 Capillary blood glucose measurement by glucometer (mass/volume) 230 mg/dL 70-110 Capillary blood glucose measurement by glucometer (mass/volume) - 12/23/17 05: 19 Capillary blood glucose measurement by glucometer (mass/volume) 154 mg/dL 70-110 Capillary blood glucose measurement by glucometer (mass/volume) - 12/23/17 17: 32 Capillary blood glucose measurement by glucometer (mass/volume) 112 mg/dL 70-110 Capillary blood glucose measurement by glucometer (mass/volume) - 12/24/17 06: 47 Capillary blood glucose measurement by glucometer (mass/volume) 137 mg/dL 70-110 Bacteria identification in isolate by anaerobe culture - 12/27/17 10:27 FREE TEXT EXTERNAL BETA LACTAMASE POSITIVE NR QUANTITY OF GROWTH Rare [facility] Bacteria identification in isolate by anaerobe culture [id number] NR FREE TEXT EXTERNAL 2 FINAL REPORT 01/01/18 12:05 NRG FREE TEXT EXTERNAL 3 SEE COMMENTS NRG Gram stain microscopy - 12/27/17 10:27 Gram stain microscopy No bacteria seen NRG Bacteria identification in wound by culture - 12/27/17 10:27 Bacteria identification in wound by culture SEE COMMEN NRG FREE TEXT EXTERNAL SUSCEPTIBILITY REPORTED 01-04-2018,1705 NRG QUANTITY OF GROWTH . NRG RML Sensitivity Panel - 12/27/17 10:27 Gentamicin susceptibility test by minimum inhibitory concentration < = NRG Levofloxacin susceptibility test by minimum inhibitory concentration <= NRG Tobramycin susceptibility test by minimum inhibitory concentration S NRG Piperacillin/tazobactam susceptibility test by minimum inhibitory concentration = NRG Ciprofloxacin susceptibility test by minimum inhibitory concentration <= NRG Meropenem susceptibility test by minimum inhibitory concentration 1 NRG Aztreonam susceptibility test by minimum inhibitory concentration 4 NRG Cefepime susceptibility test by minimum inhibitory concentration 2 NRG Imipenem susceptibility test by minimum inhibitory concentration 2 NRG Ceftazidime susceptibility test by minimum inhibitory concentration <= NRG RML Sensitivity Panel - 12/27/17 10:27 Oxacillin susceptibility test by minimum inhibitory concentration 1 NRG Clindamycin susceptibility test by minimum inhibitory concentration <= NRG Erythromycin susceptibility test by minimum inhibitory concentration <= NRG Trimethoprim/sulfamethoxazole susceptibility test by minimum inhibitoryconcentration S NRG Vancomycin susceptibility test by minimum inhibitory concentration 1 NRG Levofloxacin susceptibility test by minimum inhibitory concentration <= NRG Rifampin susceptibility test by minimum inhibitory concentration <= NRG Cefazolin susceptibility test by minimum inhibitory concentration < = NRG Linezolid susceptibility test by minimum inhibitory concentration 2 NRG Penicillin G susceptibility test by minimum inhibitory concentration > NRG Moxifloxacin susceptibility test by minimum inhibitory concentration S NRG Minocycline susc ASHOK <= NRG Encounters ACCT No. Visit Date/Time Discharge Status Pt. Type Provider Facility Loc./Unit Complaint [id number] 01/22/2018 13:38:00 01/22/2018 23:59:59 CLS Outpatient ROSALEE CRENSHAW [facility] ONC [id number] 01/17/2018 08:59:00 01/17/2018 23:59:59 CLS Outpatient DIA CORDERO APRN [facility] WOUNDCARE [id number] 01/10/2018 10:48:00 01/10/2018 23:59:59 CLS Outpatient SHERRILL GAMBINO, JOHN Bello [facility] CARD IRREGULAR HEARTBEAT [id number] 01/10/2018 09:20:00 01/10/2018 23:59:59 CLS Outpatient OLIVER COBOS MD [facility] WOUNDCARE [id number] 01/01/2018 13:23:00 01/07/2018 11:22:00 DIS Outpatient TOMER PRESTON MD [facility] ONC [id number] 01/03/2018 08:58:00 01/03/2018 23:59:59 CLS Outpatient OLIVER COBOS MD [facility] WOUNDCARE [id number] 12/27/2017 08:31:00 12/27/2017 23:59:59 CLS Outpatient DIA CORDERO APRN [facility] WOUNDCARE [id number] 12/04/2017 13:41:00 12/25/2017 13:38:00 DIS Outpatient TOMER PRESTON MD [facility] ONC [id number] 12/05/2017 12:15:00 12/24/2017 16:30:00 DIS Inpatient JANNET GOTTI MD [facility] IRF DEBILITY [id number] 10/17/2017 09:42:00 10/17/2017 23:59:59 CLS Outpatient JOHN MCCARTNEY MD [facility] LAB [id number] 10/09/2017 14:16:00 10/09/2017 23:59:59 CLS Outpatient JOHN MCCARTNEY MD [facility] LAB [id number] 09/24/2017 13:11:00 10/01/2017 00:01:00 DIS Outpatient TOMER PRESTON MD [facility] ONC [id number] 06/26/2017 14:06:00 07/03/2017 09:37:00 DIS Outpatient ROSALEE CRENSHAW [facility] ONC [id number] 04/09/2017 13:53:00 06/25/2017 00:01:00 DIS Outpatient ROSALEE CRENSHAW [facility] ONC [id number] 03/27/2017 13:01:00 03/27/2017 23:59:59 CLS Outpatient JOHN MCCARTNEY MD [facility] LAB [id number] 12/05/2016 14:06:00 12/22/2016 00:01:00 DIS Outpatient DENZURDOBRISSA Sage [facility] ONC [id number] 12/14/2016 09:14:00 12/14/2016 23:59:59 CLS Preadmit JOHN MCCARTNEY MD [facility] RAD SCREENING [id number] 11/20/2016 14:02:00 11/23/2016 15:53:00 DIS Outpatient ROSALEE CRENSHAW [facility] ONC [id number] 11/20/2016 14:25:00 11/20/2016 23:59:59 CLS Outpatient JOHN MCCARTNEY MD [facility] LABNPT E11.9 [id number] 07/31/2016 13:57:00 08/22/2016 00:01:00 DIS Outpatient ROSALEE CRENSHAW [facility] ONC [id number] 07/31/2016 14:28:00 07/31/2016 23:59:59 CLS Outpatient JOHN MCCARTNEY MD [facility] LAB [id number] 03/01/2016 13:55:00 04/18/2016 00:01:00 DIS Outpatient ROSALEE CRENSHAW [facility] ONC [id number] 04/03/2016 12:00:00 04/03/2016 23:59:59 CLS Preadmit ALLEN LOPEZ [facility] CARD HTN [id number] 03/07/2016 13:52:00 03/07/2016 23:59:59 CLS Outpatient OLIVER COBOS MD [facility] [id number] 03/07/2016 14:45:00 03/07/2016 16:00:00 DIS Outpatient OLIVER COBOS MD [facility] WOUNDCARE [id number] 02/15/2016 00:08:00 02/15/2016 23:59:59 CLS Preadmit OLIVER COBOS MD [facility] NON PRESSURE CHRONIC ULCER OF RT CALF [id number] 01/12/2016 10:28:00 02/14/2016 00:01:00 DIS Outpatient OLIVER COBOS MD [facility] NON PRESSURE CHRONIC ULCER OF RT CALF [id number] 12/22/2015 08:30:00 12/26/2015 08:38:00 DIS Outpatient OLIVER COBOS MD [facility] WOUNDCARE [id number] 12/01/2015 08:10:00 12/01/2015 23:59:59 CLS Outpatient JOHN MCCARTNEY MD [facility] ANEMIA [id number] 11/25/2015 09:01:00 12/01/2015 00:01:00 DIS Outpatient OLIVER COBOS MD [facility] WOUNDCARE [id number] 11/04/2015 10:45:00 11/16/2015 14:00:00 DIS Outpatient OLIVER COBOS MD [facility] 4TH RCR NON PRESSSUR CHRONIC ULCER OF RIGHT CALF [id number] 09/27/2015 15:16:00 09/27/2015 23:59:59 CLS Outpatient DIA CORDERO APRN [facility] LAB NON CHRONIC ULSER RT CALF [id number] 03/17/2014 11:38:00 03/22/2014 13:03:00 DIS Outpatient JOHN MCCARTNEY MD [facility] WOUNDCARE VENOUS INSUFF ULCER RLE [id number] 03/10/2014 11:34:00 03/10/2014 23:59:59 CLS Outpatient JOHN MCCARTNEY MD [facility] RAD ROUTINE [id number] 01/26/2018 15:07:00 ACT Emergency FISH GILBERT MD [facility] ER CHEST PAIN SOB [id number] 01/24/2018 08:56:00 ACT Outpatient OLIVER COBOS MD [facility] WOUNDCARE [id number] 10/03/2015 10:29:00 Document Registration [id number] 10/03/2015 10:29:00 Document Registration [id number] 10/31/2011 15:01:00 Document Registration [id number] 10/26/2011 15:04:00 Document Registration [id number] 06/06/2010 00:00:00 Document Registration [id number] 05/12/2010 09:30:00 Document Registration [id number] 05/09/2010 07:30:00 Document Registration [id number] 03/17/2014 11:38:50 ACT Document Registration
--- NOTE | 2018-01-26 15:18 | ED Chest Pain ---
General Stated Complaint: CHEST PAIN SOB Source: patient Exam Limitations: no limitations History of Present Illness Date Seen by Provider: Jan 26, 2018 Time Seen by Provider: 15:16 Initial Comments To ER per EMS from via [facility] with reports of sudden onset chest tightness and shortness of breath about 30 minutes prior to arrival. She does follow with Dr. Whittington. She is on Eliquis 5 mg twice a day for DVT prophylaxis due to immobility. No history of atrial fibrillation by paramedics noticed her to be in atrial fibrillation with a rate of 130 to 150 on arrival to ER. She is allergic to NSAIDs including aspirin so this was not given. She follows with Dr. Roblero for primary care. 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 NTG SL BEFORE AND AFTER SCHOOL DAYCARE WORKER: No Associated Symptoms: No back pain; shortness of breath Allergies and Home Medications Allergies Coded Allergies: NSAIDS (Non-Steroidal Anti-Inflamma (Verified Allergy, Unknown, 10/13/15) celecoxib (Unverified Allergy, Unknown, 12/05/17) penicillin G (Verified Allergy, Unknown, HAS RECEIVED ANCEF W/O ISSUE, ) Home Medications Acetaminophen 500 Mg Tablet, 1,000 MG PO Q4H PRN for PAIN-MILD, (Reported) Albuterol Sulfate 18 Gm Hfa.aer.ad, 2 PUFF INH Q4H PRN for SHORTNESS OF BREATH, (Reported) Ascorbate Calcium 500 Mg Tablet, 500 MG PO 1200, (Reported) Atorvastatin Calcium 40 Mg Tablet, 40 MG PO HS, (Reported) Calcium Carbonate 600 Mg Tablet, 600 MG PO DAILY@0700 Prescribed by: JANNET GOTTI on 12/24/17 0738 Cholecalciferol (Vitamin D3) 2,000 Unit Capsule, 2,000 UNIT PO 1200, (Reported) Cyanocobalamin 100 Mcg Tablet, 200 MCG PO 1200, (Reported) Fluticasone/Salmeterol 1 Each Blst.w.dev, 1 PUFF INH BID, (Reported) Folic Acid 1 Mg Tablet, 1 MG PO 1200, (Reported) Furosemide 20 Mg Tablet, 20 MG PO NEEDED PRN for swelling Prescribed by: ALLEN CORDERO on 12/24/17 1227 Metoprolol Succinate 25 Mg Tab.er.24h, 25 MG PO DAILY Prescribed by: JANNET GOTTI on 12/24/17 0738 Montelukast Sodium 10 Mg Tablet, 10 MG PO HS, (Reported) Tramadol HCl 50 Mg Tablet, 50-100 MG PO Q6H PRN for PAIN-MODERATE Prescribed by: JANNET GOTTI on 12/24/17737 Patient Home Medication List Home Medication List Reviewed: Yes Review of Systems Review of Systems Constitutional: see HPI EENTM: No Symptoms Reported Respiratory: No Symptoms Reported, Shortness of Air, SOA at Rest Cardiovascular: See HPI, Chest Pain; Denies Lightheadedness, Denies Palpitations Gastrointestinal: See HPI Genitourinary: No Symptoms Reported Musculoskeletal: no symptoms reported Skin: no symptoms reported Psychiatric/Neurological: No Symptoms Reported Endocrine: No Symptoms Reported (how far as) Past Vcqijca-Juntko-Ykeani Hx Patient Social History Recent Foreign Travel: No Contact w/Someone Who Travel: No Recent Hopitalizations: No Seasonal Allergies Seasonal Allergies: Yes Past Medical History Surgeries: Yes Respiratory: Yes Asthma Currently Using CPAP: Yes Currently Using BIPAP: No Cardiac: Yes High Cholesterol, Hypertension Neurological: No Female Reproductive Disorders: Denies Sexually Transmitted Disease: No HIV/AIDS: No Genitourinary: No Bladder Infection Hiatal Hernia Musculoskeletal: Yes Osteoporosis, Arthritis, Chronic Back Pain Endocrine: Yes Diabetes, Non-Insulin dep HEENT: No Hearing Impairment: Denies Cancer: Yes (melanoma 5 yrs ago on shoulder) Did You Recieve Any Treatments: No Psychosocial: No Integumentary: Yes Blood Disorders: No Adverse Reaction/Blood Tranf: No Family Medical History Patient reports no known family medical history. Physical Exam Vital Signs Vital Signs - First Documented 01/26/18 15:05 Temp 96.1 Pulse 122 Resp 22 B/P (MAP) 113/83 (93) Pulse Ox 99 O2 Delivery Nasal Cannula O2 Flow Rate 2.00 Capillary Refill : Height, Weight, BMI Height: 5'6.00" Weight: 295lbs. 1.6oz. 133.572205mo; 44.3 BMI Method: General Appearance: WD/WN, Moderate Distress (speaks in short phrases. Oxygen saturation 98% on her baseline 2 L. Morbidly obese.), Obese (. All. Translators here for transverse), Other HEENT: PERRL/EOMI, TMs Normal Neck: Full Range of Motion, Normal Inspection Respiratory: No Accessory Muscle Use, No Respiratory Distress Cardiovascular: Irregularly Irregular, Tachycardia Gastrointestinal: Normal Bowel Sounds, Non Tender, Soft Neurologic/Psychiatric: Alert Skin: Normal Color, Warm/Dry Progress/Results/Core Measures Results/Orders Lab Results Laboratory Tests Test 01/26/18 15:25 Range/Units White Blood Count 7.5 4.3-11.0 10^3/uL Red Blood Count 4.20 L 4.35-5.85 10^6/uL Hemoglobin 12.2 11.5-16.0 G/DL Hematocrit 40 35-52 % Mean Corpuscular Volume 95 80-99 FL Mean Corpuscular Hemoglobin 29 25-34 PG Mean Corpuscular Hemoglobin Concent 31 L 32-36 G/DL Red Cell Distribution Width 16.9 H 10.0-14.5 % Platelet Count 215 130-400 10^3/uL Mean Platelet Volume 10.1 7.4-10.4 FL Neutrophils (%) (Auto) 69 42-75 % Lymphocytes (%) (Auto) 19 12-44 % Monocytes (%) (Auto) 11 0-12 % Eosinophils (%) (Auto) 1 0-10 % Basophils (%) (Auto) 0 0-10 % Neutrophils # (Auto) 5.2 1.8-7.8 X 10^3 Lymphocytes # (Auto) 1.4 1.0-4.0 X 10^3 Monocytes # (Auto) 0.8 0.0-1.0 X 10^3 Eosinophils # (Auto) 0.1 0.0-0.3 10^3/uL Basophils # (Auto) 0.0 0.0-0.1 10^3/uL Prothrombin Time 25.4 H 12.2-14.7 SEC INR Comment 2.3 H 0.8-1.4 Activated Partial Thromboplast Time 32 24-35 SEC Sodium Level 140 135-145 MMOL/L Potassium Level 4.7 3.6-5.0 MMOL/L Chloride Level 105 98-107 MMOL/L Carbon Dioxide Level 21 21-32 MMOL/L Anion Gap 14 5-14 MMOL/L Blood Urea Nitrogen 23 H 7-18 MG/DL Creatinine 1.11 0.60-1.30 MG/DL Estimat Glomerular Filtration Rate 48 BUN/Creatinine Ratio 21 Glucose Level 166 H 70-105 MG/DL Calcium Level 9.5 8.5-10.1 MG/DL Corrected Calcium 9.9 8.5-10.1 MG/DL Magnesium Level 1.6 L 1.8-2.4 MG/DL Total Bilirubin 0.6 0.1-1.0 MG/DL Aspartate Amino Transf (AST/SGOT) 45 H 5-34 U/L Alanine Aminotransferase (ALT/SGPT) 29 0-55 U/L Alkaline Phosphatase 195 H 40-136 U/L Myoglobin 36.5 10.0-92.0 NG/ML B-Type Natriuretic Peptide 1231.9 H <100.0 PG/ML Total Protein 6.2 L 6.4-8.2 GM/DL Albumin 3.5 3.2-4.5 GM/DL My Orders Orders - SHWETA FENG APRN Cbc With Automated Diff (01/26/18 15:12) Magnesium (01/26/18 15:12) Chest 1 View, Ap/Pa Only (01/26/18 15:12) Ekg Tracing (01/26/18 15:12) Cardiac Profile 1 (01/26/18 15:12) Comprehensive Metabolic Panel (01/26/18 15:12) Myoglobin Serum (01/26/18 15:12) Protime With Inr (01/26/18 15:12) Partial Thromboplastin Time (01/26/18 15:12) O2 (01/26/18 15:12) Monitor-Rhythm Ecg Trace Only (01/26/18 15:12) Lipid Panel (01/27/18 06:00) Saline Lock/Iv-Start (01/26/18 15:12) BNP (01/26/18 15:12) Ns (Ivpb) (Sodium C... W/Diltiazem Iv Fo (01/26/18 15:15) Ua Culture If Indicated (01/26/18 15:28) Vital Signs/I&O 01/26/18 01/26/18 01/26/18 15:05 15:05 15:41 Temp 96.1 Pulse 122 130 Resp 22 B/P (MAP) 113/83 (93) 113/83 Pulse Ox 99 96 O2 Delivery Nasal Cannula Nasal Cannula O2 Flow Rate 2.00 Progress Progress Note : Progress Note NAME: ARNOL DIAZ REC#: [id number] PT STATUS: REG ER : 1945 PHYSICIAN: SHWETA FENG APRN ADMIT DATE: 01/26/18/ER Draft Date of Exam:01/26/18 CHEST 1 VIEW, AP/PA ONLY Indication: Dyspnea and chest tightness. Comparison: 12/08/2017. Discussion: Single portable upright view of the chest was obtained. Mild cardiomegaly is noted. Perihilar infiltrates are present, suggestive of early pulmonary edema. No pleural fluid or pneumothorax. No osseous abnormality. Impression: Cardiomegaly with suggested developing failure. Dictated on workstation # [id number] Dict: 01/26/18 1549 Trans: 01/26/18 1550 [facility] [id number] Interpreted by: TOM BANKS MD Electronically signed by: Initial ECG Impression Date: Jan 26, 2018 Departure Impression Primary Impression: Atrial fibrillation with rapid ventricular response Disposition: ADMITTED INPATIENT Condition: Stable Admissions Decision to Admit Reason: Admit from ER (General) Decision to Admit/Date: Jan 26, 2018 Time/Decision to Admit Time: 15:32 Departure-Patient Inst. Referrals: JOHN ROBLERO MD (PCP/Family) Primary Care Physician SHWETA FENG APRN Jan 26, 2018 15:18
[2018-01-26 15:35] LABS: BASOPHILS % (AUTO) 0 % (0-10); EOSINOPHILS # (AUTO) 0.1 10^3/uL (0.0-0.3); EOSINOPHILS % (AUTO) 1 % (0-10); HEMATOCRIT 40 % (35-52); HEMOGLOBIN 12.2 G/DL (11.5-16.0); LYMPHOCYTES # (AUTO) 1.4 X 10^3 (1.0-4.0); LYMPHOCYTES % (AUTO) 19 % (12-44); MEAN CORPUSCULAR HEMOGLOBIN 29 PG (25-34); MEAN CORPUSCULAR HGB CONC 31 G/DL (32-36); MEAN CORPUSCULAR VOLUME 95 FL (80-99); MEAN PLATELET VOLUME 10.1 FL (7.4-10.4); MONOCYTES # (AUTO) 0.8 X 10^3 (0.0-1.0); MONOCYTES % (AUTO) 11 % (0-12); NEUTROPHILS # (AUTO) 5.2 X 10^3 (1.8-7.8); NEUTROPHILS % (AUTO) 69 % (42-75); PLATELET COUNT 215 10^3/uL (130-400); RED CELL DISTRIBUTION WIDTH 16.9 % (10.0-14.5); WHITE BLOOD COUNT 7.5 10^3/uL (4.3-11.0)
[2018-01-26] MEDS: DILTIAZEM IV FOR DRIP 125 MG in NS (IVPB) 100 ML IV SCH ×2 (15:41→18:57)
[2018-01-26 15:49] LABS: INR 2.3 (0.8-1.4); PROTHROMBIN TIME PATIENT 25.4 SEC (12.2-14.7)
--- NOTE | 2018-01-26 15:51 | Diagnostic Imaging Report ---
Indication: Dyspnea and chest tightness. Comparison: 12/08/2017. Discussion: Single portable upright view of the chest was obtained. Mild cardiomegaly is noted. Perihilar infiltrates are present, suggestive of early pulmonary edema. No pleural fluid or pneumothorax. No osseous abnormality. Impression: Cardiomegaly with suggested developing failure. Dictated by: Dictated on workstation # [id number]
[2018-01-26 15:55] LABS: ALANINE AMINOTRANSFERASE 29 U/L (0-55); ALBUMIN 3.5 GM/DL (3.2-4.5); ALKALINE PHOSPHATASE 195 U/L (40-136); BILIRUBIN,TOTAL 0.6 MG/DL (0.1-1.0); BUN/CREATININE RATIO 21; CALCIUM 9.5 MG/DL (8.5-10.1); CARBON DIOXIDE 21 MMOL/L (21-32); CHLORIDE 105 MMOL/L (98-107); CREATININE SERUM 1.11 MG/DL (0.60-1.30); GFR ESTIMATED 48; GLUCOSE 166 MG/DL (70-105); MAGNESIUM 1.6 MG/DL (1.8-2.4); POTASSIUM 4.7 MMOL/L (3.6-5.0); SODIUM 140 MMOL/L (135-145); TOTAL PROTEIN 6.2 GM/DL (6.4-8.2)
[2018-01-26 16:01] LABS: MYOGLOBIN SERUM 36.5 NG/ML (10.0-92.0)
[2018-01-26] MEDS ORDERED: MAGNESIUM 1 GM/100 ML IVPB 100 ML IV SCH (16:15)
--- OUTSIDE RECORDS SUMMARY | 2018-01-26 17:10 | XMS REPORT | Continuity of Care Document ---
Author Author [facility] Organization [facility] Address Unknown Phone Unavailable Allergies Active Description Code Type Severity Reaction Onset Reported/Identified Relationship to Patient Clinical Status Yes penicillin G [id number] Drug Allergy Unknown N/A 12/30/2005 Yes NSAIDS (Non-Steroidal Anti-Inflamma [id number] Drug Allergy Unknown N/A Yes penicillin G [id number] Drug Allergy Unknown HAS RECEIVED AN 10/13/2015 Yes celecoxib [id number] Drug Allergy Unknown N/A 12/05/2017 Medications There is no data. Problems Date Dx Coded Attending Type Code Diagnosis Diagnosed By ROSALEE CRENSHAW Ot D50.9 IRON DEFICIENCY ANEMIA, UNSPECIFIED ROSALEE CRENSHAW Ot E11.9 TYPE 2 DIABETES MELLITUS WITHOUT COMPLIC ROSALEE CRENSHAW Ot E78.2 MIXED HYPERLIPIDEMIA ROSALEE CRENSHAW Ot I10 ESSENTIAL (PRIMARY) HYPERTENSION ROSALEE CRENSHAW Ot R60.0 LOCALIZED EDEMA ROSALEE CRENSHAW Ot Z79.84 MCC (CURRENT) USE OF ORAL HYPOGLYC ROSALEE CRENSHAW Ot Z79.899 OTHER MCC (CURRENT) DRUG THERAPY ROSALEE CRENSHAW Ot Z82.49 [...] EDEMA 02/21/1121 TOMER PRESTON MD Ot Z79.84 BINDERY CHIEF (CURRENT) USE OF ORAL HYPOGLYC 02/21/1121 TOMER PRESTON MD Ot Z79.899 OTHER BINDERY CHIEF (CURRENT) DRUG THERAPY 02/21/1121 TOMER PRESTON MD [...] EDEMA 02/21/1337 TOMER PRESTON MD Ot Z79.84 BINDERY CHIEF (CURRENT) USE OF ORAL HYPOGLYC 02/21/1337 TOMER PRESTON MD Ot Z79.899 OTHER MCC (CURRENT) DRUG THERAPY 02/21/1337 TOMER PRESTON MD [...] ULCER OF RIGHT CALF 09/28/2015 DIA CORDERO JOINERY SETTER OUT Ot E11.622 TYPE 2 DIABETES MELLITUS WITH OTHER SKIN 09/28/2015 DIA CORDERO JOINERY SETTER OUT Ot E66.01 MORBID (SEVERE) OBESITY DUE TO EXCESS CA 09/28/2015 DIA CORDERO JOINERY SETTER OUT Ot 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 09/28/2015 CONSUELODIA JOINERY SETTER OUT Ot L97.212 NON-PRESSURE CHRONIC ULCER OF RIGHT CALF 10/03/2015 DIA CORDERO JOINERY SETTER OUT Ot E11.622 TYPE 2 DIABETES MELLITUS WITH OTHER SKIN 10/03/2015 DIA CORDERO JOINERY SETTER OUT Ot E66.01 MORBID (SEVERE) OBESITY DUE TO EXCESS CA 10/03/2015 DIA CORDERO JOINERY SETTER OUT Ot 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 10/03/2015 DIA CORDERO JOINERY SETTER OUT Ot L97.212 NON-PRESSURE CHRONIC ULCER OF RIGHT [...] ULCER OF RIGHT CALF 10/03/2015 DIA CORDERO JOINERY SETTER OUT Ot E11.622 TYPE 2 DIABETES MELLITUS WITH OTHER SKIN 10/03/2015 DIA CORDERO JOINERY SETTER OUT Ot E66.01 MORBID (SEVERE) OBESITY DUE TO EXCESS CA 10/03/2015 DIA CORDERO JOINERY SETTER OUT Ot 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 10/03/2015 DIA CORDERO APRN Ot L97.212 NON-PRESSURE CHRONIC ULCER OF RIGHT CALF 10/13/2015 Ot 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 10/13/2015 Ot 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 10/18/2015 OLIVER COBOS MD, Ot E11.622 TYPE 2 DIABETES MELLITUS WITH OTHER SKIN 10/18/2015 LOIVER COBOS MD, Ot E66.01 MORBID (SEVERE) [...] CHRONIC ULCER OF RIGHT CALF 10/19/2015 OLIVER COBSO MD, Ot Z68.43 BODY MASS INDEX (BMI) [...] MELLITUS WITH OTHER SKIN 11/03/2015 DIA CORDERO JOINERY SETTER OUT Ot E66.01 MORBID (SEVERE) OBESITY DUE TO EXCESS CA 11/03/2015 DIA CORDERO APRN Ot 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 11/03/2015 DIA CORDERO JOINERY SETTER OUT Ot L97.212 NON-PRESSURE CHRONIC ULCER OF RIGHT [...] DIABETES MELLITUS WITH OTHER SKIN 11/21/2015 OLIVER CBOOS MD, Ot E66.01 MORBID (SEVERE) OBESITY DUE [...] CHRONIC ULCER OF RIGHT CALF 11/25/2015 OLIVER OCBOS MD, Ot Z68.43 BODY MASS INDEX (BMI) [...] CHRONIC ULCER OF RIGHT CALF 11/26/2015 OLIVER COOBS MD, Ot Z68.43 BODY MASS INDEX (BMI) [...] 2 DIABETES MELLITUS WITH OTHER SKIN 11/27/2015 OLVIER COBOS MD, Ot E66.01 MORBID (SEVERE) OBESITY [...] SCREEN MAMMO-MALIGN NEOPLASM OF ALISTAIR 12/02/2015 DIA CORDREO APRN Ot E11.622 TYPE 2 DIABETES MELLITUS [...] SYNDROME W ULCER AND INFLAMMAT 12/02/2015 OLIVER COBSO MD, Ot L97.212 NON-PRESSURE CHRONIC ULCER OF [...] NON-PRESSURE CHRONIC ULCER OF RIGHT CALF 12/06/2015 OLIVRE COBOS MD, Ot Z68.43 BODY MASS INDEX [...] DIABETES MELLITUS WITH OTHER SKIN 01/06/2016 OLIVER COOBS MD, Ot E66.01 MORBID (SEVERE) OBESITY DUE [...] EDEMA 08/29/2016 ROSALEE CRENSHAW N Ot Z79.84 MCC (CURRENT) USE OF ORAL HYPOGLYC 08/29/2016 ROSALEE CRENSHAW Ot Z79.899 OTHER BINDERY CHIEF (CURRENT) DRUG THERAPY 08/29/2016 ROSALEE CRENSHAW Ot [...] EDEMA 10/15/2016 ROSALEE CRENSHAW N Ot Z79.84 MCC (CURRENT) USE OF ORAL HYPOGLYC 10/15/2016 DENROSALEE N Ot Z79.899 OTHER BINDERY CHIEF (CURRENT) DRUG THERAPY 10/15/2016 DENROSALEE Ot Z82.49 [...] LOCALIZED EDEMA 10/19/2016 DENROSALEE STEWART Ot Z79.84 BINDERY CHIEF (CURRENT) USE OF ORAL HYPOGLYC 10/19/2016 ROSALEE CRENSHAW Ot Z79.899 OTHER MCC (CURRENT) DRUG THERAPY 10/19/2016 DENROSALEE Ot Z82.49 [...] EDEMA 11/23/2016 DENROSALEE STEWART N Ot Z79.84 MCC (CURRENT) USE OF ORAL HYPOGLYC 11/23/2016 ROSALEE CRENSHAW N Ot Z79.899 OTHER BINDERY CHIEF (CURRENT) DRUG THERAPY 11/23/2016 ROSALEE CRENSHAW N [...] EDEMA 12/06/2016 DENROSALEE STEWART N Ot Z79.84 BINDERY CHIEF (CURRENT) USE OF ORAL HYPOGLYC 12/06/2016 ROSALEE CRENSHAW N Ot Z79.899 OTHER MCC (CURRENT) DRUG THERAPY 12/06/2016 DEN ROSALEE Chu [...] EDEMA 12/22/2016 ROSALEE CRENSHAW N Ot Z79.84 BINDERY CHIEF (CURRENT) USE OF ORAL HYPOGLYC 12/22/2016 ROSALEE CRENSHAW N Ot Z79.899 OTHER BINDERY CHIEF (CURRENT) DRUG THERAPY 12/22/2016 ROSALEE CRENSHAW N [...] EDEMA 12/27/2016 DEN, BOBAN N Ot Z79.84 BINDERY CHIEF (CURRENT) USE OF ORAL HYPOGLYC 12/27/2016 DEN, BOBAN N Ot Z79.899 OTHER BINDERY CHIEF (CURRENT) DRUG THERAPY 12/27/2016 DEN, BOBAN N [...] EDEMA 03/28/2017 DEN, BOBAN N Ot Z79.84 BINDERY CHIEF (CURRENT) USE OF ORAL HYPOGLYC 03/28/2017 DEN, BOBAN N Ot Z79.899 OTHER BINDERY CHIEF (CURRENT) DRUG THERAPY 03/28/2017 DEN, BOBAN N [...] LOCALIZED EDEMA 04/30/2017 DENROSALEE N Ot Z79.84 MCC (CURRENT) USE OF ORAL HYPOGLYC 04/30/2017 DENROSALEE N Ot Z79.899 OTHER MCC (CURRENT) DRUG THERAPY 04/30/2017 DENROSALEE N Ot [...] LOCALIZED EDEMA 06/25/2017 DENROSALEE N Ot Z79.84 MCC (CURRENT) USE OF ORAL HYPOGLYC 06/25/2017 DENROSALEE N Ot Z79.899 OTHER BINDERY CHIEF (CURRENT) DRUG THERAPY 06/25/2017 DENROSALEE N Ot [...] EDEMA 06/26/2017 DEN BOBAN N Ot Z79.84 BINDERY CHIEF (CURRENT) USE OF ORAL HYPOGLYC 06/26/2017 DEN, ZURDOAN N Ot Z79.899 OTHER BINDERY CHIEF (CURRENT) DRUG THERAPY 06/26/2017 DENROSALEE N Ot [...] LOCALIZED EDEMA 06/27/2017 ROSALEE CRENSHAW Ot Z79.84 MCC (CURRENT) USE OF ORAL HYPOGLYC 06/27/2017 ROSALEE CRENSHAW Chu Ot Z79.899 OTHER BINDERY CHIEF (CURRENT) DRUG THERAPY 06/27/2017 ROSALEE CRENSHAW Ot [...] LOCALIZED EDEMA 07/03/2017 ROSALEE CRENSHAW Ot Z79.84 BINDERY CHIEF (CURRENT) USE OF ORAL HYPOGLYC 07/03/2017 ROSALEE CRENSHAW Ot Z79.899 OTHER BINDERY CHIEF (CURRENT) DRUG THERAPY 07/03/2017 ROSALEE CRENSHAW Ot [...] EDEMA 07/03/2017 TOMER PRESTON MD Ot Z79.84 MCC (CURRENT) USE OF ORAL HYPOGLYC 07/03/2017 TOMER PRESTON MD, Ot Z79.899 OTHER MCC (CURRENT) DRUG THERAPY 07/03/2017 TOMER PRESTON MD, Ot Z82.49 FAMILY HX OF ISCHEM HEART DIS AND OTH DI 07/03/2017 TOMER PRESTON MD, Ot Z85.820 PERSONAL HISTORY OF MALIGNANT MELANOMA O 07/03/2017 JOHN MCCARTNEY MD, Ot V76.12 OTH SCREEN MAMMO-MALIGN NEOPLASM OF ALISTAIR 07/03/2017 DIA CORDERO APRN Ot E11.622 TYPE 2 DIABETES MELLITUS WITH OTHER SKIN 07/03/2017 DIA CORDERO JOINERY SETTER OUT Ot E66.01 MORBID (SEVERE) OBESITY DUE TO [...] EDEMA 07/03/2017 TOMER PRESTON MD Ot Z79.84 MCC (CURRENT) USE OF ORAL HYPOGLYC 07/03/2017 TOMER PRESTON MD, Ot Z79.899 OTHER MCC (CURRENT) DRUG THERAPY 07/03/2017 TOMER PRESTON MD, Ot Z82.49 FAMILY HX OF ISCHEM HEART DIS AND OTH DI 07/03/2017 TOMER PRESTON MD, Ot Z85.820 PERSONAL HISTORY OF MALIGNANT MELANOMA O 07/03/2017 JHON MCCARTNEY MD Ot V76.12 OTH SCREEN MAMMO-MALIGN NEOPLASM OF ALISTAIR 07/03/2017 DIA CORDERO APRN Ot E11.622 TYPE 2 DIABETES MELLITUS WITH OTHER SKIN 07/03/2017 DIA CORDERO JOINERY SETTER OUT Ot E66.01 MORBID (SEVERE) OBESITY DUE TO EXCESS CA 07/03/2017 DIA CORDERO APRN Ot 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 07/03/2017 IDA CORDERO APRN Ot L97.212 NON-PRESSURE CHRONIC ULCER [...] EDEMA 07/03/2017 TOMER PRESTON MD Ot Z79.84 MCC (CURRENT) USE OF ORAL HYPOGLYC 07/03/2017 TOMER PRESTON MD Ot Z79.899 OTHER MCC (CURRENT) DRUG THERAPY 07/03/2017 TOMRE PRESTON MD Ot Z82.49 FAMILY HX OF [...] EDEMA 07/04/2017 TOMER PRESTON MD Ot Z79.84 BINDERY CHIEF (CURRENT) USE OF ORAL HYPOGLYC 07/04/2017 TOMER PRESTON MD Ot Z79.899 OTHER BINDERY CHIEF (CURRENT) DRUG THERAPY 07/04/2017 TOMER PRESTON MD [...] EDEMA 08/13/2017 TOMER PRESTON MD Ot Z79.84 BINDERY CHIEF (CURRENT) USE OF ORAL HYPOGLYC 08/13/2017 TOMER PRESTON MD Ot Z79.899 OTHER MCC (CURRENT) DRUG THERAPY 08/13/2017 TOMER PRESTON MD [...] EDEMA 08/21/2017 TOMER PRESTON MD Ot Z79.84 BINDERY CHIEF (CURRENT) USE OF ORAL HYPOGLYC 08/21/2017 TOMER PRESTON MD Ot Z79.899 OTHER MCC (CURRENT) DRUG THERAPY 08/21/2017 TOMER PRESTON MD [...] EDEMA 10/01/2017 TOMER PRESTON MD Ot Z79.84 BINDERY CHIEF (CURRENT) USE OF ORAL HYPOGLYC 10/01/2017 TOMER PRESTON MD, Ot Z79.899 OTHER BINDERY CHIEF (CURRENT) DRUG THERAPY 10/01/2017 TOMER PRESTON MD, [...] EDEMA 10/02/2017 TOMER PRESTON MD Ot Z79.84 MCC (CURRENT) USE OF ORAL HYPOGLYC 10/02/2017 TOMER PRESTON MD Ot Z79.899 OTHER BINDERY CHIEF (CURRENT) DRUG THERAPY 10/02/2017 TOMER PRESTON MD [...] EDEMA 10/03/2017 TOMER PRESTON MD Ot Z79.84 BINDERY CHIEF (CURRENT) USE OF ORAL HYPOGLYC 10/03/2017 TOMER PRESTON MD Ot Z79.899 OTHER BINDERY CHIEF (CURRENT) DRUG THERAPY 10/03/2017 TOMER PRESTON MD [...] EDEMA 10/09/2017 TOMER PRESTON MD Ot Z79.84 BINDERY CHIEF (CURRENT) USE OF ORAL HYPOGLYC 10/09/2017 TOMER PRESTON MD Ot Z79.899 OTHER MCC (CURRENT) DRUG THERAPY 10/09/2017 TOMER PRESTON MD [...] EDEMA 11/12/2017 TOMER PRESTON MD Ot Z79.84 BINDERY CHIEF (CURRENT) USE OF ORAL HYPOGLYC 11/12/2017 TOMER PRESTON MD Ot Z79.899 OTHER MCC (CURRENT) DRUG THERAPY 11/12/2017 TOMER PRESTON MD [...] EDEMA 11/22/2017 TOMER PRESTON MD, Ot Z79.84 MCC (CURRENT) USE OF ORAL HYPOGLYC 11/22/2017 TOMER PRESTON MD, Ot Z79.899 OTHER BINDERY CHIEF (CURRENT) DRUG THERAPY 11/22/2017 TOMER PRESTON MD, [...] EDEMA 12/05/2017 TOMER PRESTON MD, Ot Z79.84 MCC (CURRENT) USE OF ORAL HYPOGLYC 12/05/2017 TOMER PRESTON MD, Ot Z79.899 OTHER BINDERY CHIEF (CURRENT) DRUG THERAPY 12/05/2017 TOMER PRESTON MD, [...] EDEMA 12/25/2017 TOMER PRESTON MD Ot Z79.84 BINDERY CHIEF (CURRENT) USE OF ORAL HYPOGLYC 12/25/2017 TOMER PRESTON MD Ot Z79.899 OTHER BINDERY CHIEF (CURRENT) DRUG THERAPY 12/25/2017 TOMER PRESTON MD [...] EDEMA 01/07/2018 TOMER PRESTON MD Ot Z79.84 BINDERY CHIEF (CURRENT) USE OF ORAL HYPOGLYC 01/07/2018 TOMER PRESTON MD Ot Z79.899 OTHER MCC (CURRENT) DRUG THERAPY 01/07/2018 TOMER PRESTON MD [...] MELLITUS WITH OTHER SKIN 01/21/2018 DIA CORDERO JOINERY SETTER OUT Ot E66.01 MORBID (SEVERE) OBESITY DUE TO EXCESS CA 01/21/2018 DIA CORDERO JOINERY SETTER OUT Ot I87.333 CHRONIC VENOUS HTN W ULCER AND INFLAM OF 01/21/2018 DIA CORDERO JOINERY SETTER OUT Ot L97.212 NON-PRESSURE CHRONIC ULCER OF RIGHT CALF 01/21/2018 DIA CORDERO JOINERY SETTER OUT Ot L97.222 NON-PRESSURE CHRONIC ULCER OF LEFT CALF 01/21/2018 DIA CORDERO JOINERY SETTER OUT Ot E11.622 TYPE 2 DIABETES MELLITUS WITH OTHER SKIN 01/21/2018 DIA CORDERO JOINERY SETTER OUT Ot E66.01 MORBID (SEVERE) OBESITY DUE TO EXCESS CA 01/21/2018 DIA CORDERO JOINERY SETTER OUT Ot I87.2 VENOUS INSUFFICIENCY (CHRONIC) (PERIPHER 01/21/2018 DIA CORDERO JOINERY SETTER OUT Ot L97.212 NON-PRESSURE CHRONIC ULCER OF RIGHT [...] 10:06 Bacteria identification in wound by culture [id number] NRG QUANTITY OF GROWTH Scant Growth NRG Bacteria identification in isolate by anaerobe culture - 11/11/15 11:30 Bacteria identification in isolate by anaerobe culture NOANA NRG Gram stain microscopy - 11/11/15 11:30 GRAM STAIN RESULT FEW WBC'S, NO BACTERIA OBSERVED NRG Bacteria identification in wound by culture - 11/11/15 11:30 Bacteria identification in wound by culture [id number] NRG FREE TEXT EXTERNAL 2 COLONY TYPES [...] 09:30 Bacteria identification in wound by culture [id number] NRG QUANTITY OF GROWTH Scant Growth NRG Bacteria identification in isolate by anaerobe culture - 01/06/16 09:30 Bacteria identification in isolate by anaerobe culture NOANA NRG Gram stain microscopy - 01/06/16 09:30 GRAM STAIN RESULT FEW WBC'S, NO BACTERIA OBSERVED NRG Bacteria identification in wound by culture - 01/06/16 09:30 Bacteria identification in wound by culture [id number] NRG FREE TEXT EXTERNAL PLEASE NOTIFY MICRO [...] LACTAMASE POSITIVE NR QUANTITY OF GROWTH Rare [facility] Bacteria identification in isolate by anaerobe culture [id number] NR FREE TEXT EXTERNAL 2 FINAL REPORT [...] S NRG Minocycline susc ASHOK <= NRG Complete blood count (CBC) with automated white blood cell (WBC) differential - 01/26/18 15:25 Blood leukocytes automated count (number/volume) 7.5 10*3/uL 4.3-11.0 Blood erythrocytes automated count (number/volume) 4.20 10*6/uL 4.35-5.85 Venous blood hemoglobin measurement (mass/volume) 12.2 g/dL 11.5-16.0 Blood hematocrit (volume fraction) 40 % 35-52 Automated erythrocyte mean corpuscular volume 95 [foz_us] 80-99 Automated erythrocyte mean corpuscular hemoglobin (mass per erythrocyte) 29 pg 25-34 Automated erythrocyte mean corpuscular hemoglobin concentration measurement ( mass/volume) 31 g/dL 32-36 Automated erythrocyte distribution width ratio 16.9 % 10.0-14.5 Automated blood platelet count (count/volume) 215 10*3/uL 130-400 Automated blood platelet mean volume measurement 10.1 [foz_us] 7.4-10.4 Automated blood neutrophils/100 leukocytes 69 % 42-75 Automated blood lymphocytes/100 leukocytes 19 % 12-44 Blood monocytes/100 leukocytes 11 % 0-12 Automated blood eosinophils/100 leukocytes 1 % 0-10 Automated blood basophils/100 leukocytes 0 % 0-10 Blood neutrophils automated count (number/volume) 5.2 10*3 1.8-7.8 Blood lymphocytes automated count (number/volume) 1.4 10*3 1.0-4.0 Blood monocytes automated count (number/volume) 0.8 10*3 0.0-1.0 Automated eosinophil count 0.1 10*3/uL 0.0-0.3 Automated blood basophil count (count/volume) 0.0 10*3/uL 0.0-0.1 PT panel in platelet poor plasma by coagulation assay - 01/26/18 15:25 Prothrombin time (PT) in platelet poor plasma by coagulation assay 25.4 s 12.2-14.7 INR in platelet poor plasma or blood by coagulation assay 2.3 0.8-1.4 Activated partial thromboplastin time (aPTT) in platelet poor plasma bycoagulation assay - 01/26/18 15:25 Activated partial thromboplastin time (aPTT) in platelet poor plasma bycoagulation assay 32 s 24-35 Comprehensive metabolic panel - 01/26/18 15:25 Serum or plasma sodium measurement (moles/volume) 140 mmol/L 135-145 Serum or plasma potassium measurement (moles/volume) 4.7 mmol/L 3.6-5.0 Serum or plasma chloride measurement (moles/volume) 105 mmol/L 98-107 Carbon dioxide 21 mmol/L 21-32 Serum or plasma anion gap determination (moles/volume) 14 mmol/L 5-14 Serum or plasma urea nitrogen measurement (mass/volume) 23 mg/dL 7-18 Serum or plasma creatinine measurement (mass/volume) 1.11 mg/dL 0.60-1.30 Serum or plasma urea nitrogen/creatinine mass ratio 21 NRG Serum or plasma creatinine measurement with calculation of estimated glomerular filtration rate 48 NRG Serum or plasma glucose measurement (mass/volume) 166 mg/dL 70-105 Serum or plasma calcium measurement (mass/volume) 9.5 mg/dL 8.5-10.1 Serum or plasma total bilirubin measurement (mass/volume) 0.6 mg/dL 0.1-1.0 Serum or plasma alkaline phosphatase measurement (enzymatic activity/volume) 195 U/L 40-136 Serum or plasma aspartate aminotransferase measurement (enzymatic activity/ volume) 45 U/L 5-34 Serum or plasma alanine aminotransferase measurement (enzymatic activity/volume ) 29 U/L 0-55 Serum or plasma protein measurement (mass/volume) 6.2 g/dL 6.4-8.2 Serum or plasma albumin measurement (mass/volume) 3.5 g/dL 3.2-4.5 CALCIUM CORRECTED 9.9 mg/dL 8.5-10.1 Magnesium - 01/26/18 15:25 Magnesium 1.6 mg/dL 1.8-2.4 Serum or plasma troponin i.cardiac measurement (mass/volume) - 01/26/18 15:25 Serum or plasma troponin i.cardiac measurement (mass/volume) < ng/ mL <0.30 Serum or plasma lithium measurement (moles/volume) - 01/26/18 15:25 BNP level 1231.9 pg/mL <100.0 Myoglobin, serum - 01/26/18 15:25 Myoglobin, serum 36.5 ng/mL 10.0-92.0 Encounters ACCT No. Visit Date/Time Discharge Status Pt. Type Provider Facility Loc./Unit Complaint [id number] 01/22/2018 13:38:00 01/22/2018 23:59:59 CLS Outpatient ROSALEE CRENSHAW [facility] ONC [id number] 01/17/2018 08:59:00 01/17/2018 23:59:59 CLS Outpatient DIA CORDERO APRN [facility] WOUNDCARE [id number] 01/10/2018 10:48:00 01/10/2018 23:59:59 CLS Outpatient JOHN MCCARTNEY MD [facility] CARD IRREGULAR HEARTBEAT [id number] 01/10/2018 09:20:00 01/10/2018 23:59:59 CLS Outpatient OLIVER COBOS MD [facility] WOUNDCARE [id number] 01/01/2018 13:23:00 01/07/2018 11:22:00 DIS Outpatient TOMER PRESTON MD [facility] ONC [id number] 01/03/2018 08:58:00 01/03/2018 23:59:59 CLS Outpatient OLIVER COBOS MD [facility] WOUNDCARE [id number] 12/27/2017 08:31:00 12/27/2017 23:59:59 CLS Outpatient CONSUELO DIAChu Gaona APRN [facility] WOUNDCARE [id number] 12/04/2017 13:41:00 12/25/2017 13:38:00 DIS Outpatient TOMER PRESTON MD [facility] ONC [id number] 12/05/2017 12:15:00 12/24/2017 16:30:00 DIS Inpatient JANNET GOTTI MD [facility] IRF DEBILITY [id number] 10/17/2017 09:42:00 10/17/2017 23:59:59 CLS Outpatient JOHN MCCARTNEY MD [facility] LAB [id number] 10/09/2017 14:16:00 10/09/2017 23:59:59 CLS Outpatient JOHN MCCARTNEY MD [facility] LAB [id number] 09/24/2017 13:11:00 10/01/2017 00:01:00 DIS Outpatient TOMER PRESTON MD [facility] ONC [id number] 06/26/2017 14:06:00 07/03/2017 09:37:00 DIS Outpatient ROSALEE CRENSHAW [facility] ONC [id number] 04/09/2017 13:53:00 06/25/2017 00:01:00 DIS Outpatient ROSALEE CRENSHAW [facility] ONC [id number] 03/27/2017 13:01:00 03/27/2017 23:59:59 CLS Outpatient JOHN MCCARTNEY MD [facility] LAB [id number] 12/05/2016 14:06:00 12/22/2016 00:01:00 DIS Outpatient DENROSALEE Chu [facility] ONC [id number] 12/14/2016 09:14:00 12/14/2016 23:59:59 CLS Preadmit JOHN MCCARTNEY MD [facility] RAD SCREENING [id number] 11/20/2016 14:02:00 11/23/2016 15:53:00 DIS Outpatient DEN ROSALEE Sage [facility] ONC [id number] 11/20/2016 14:25:00 11/20/2016 23:59:59 CLS Outpatient JOHN MCCARTNEY MD [facility] LABNPT E11.9 [id number] 07/31/2016 13:57:00 08/22/2016 00:01:00 DIS Outpatient DENROSALEE Chu [facility] ONC [id number] 07/31/2016 14:28:00 07/31/2016 23:59:59 CLS Outpatient JOHN MCCARTNEY MD [facility] LAB [id number] 03/01/2016 13:55:00 04/18/2016 00:01:00 DIS Outpatient DENROSALEE Chu [facility] ONC [id number] 04/03/2016 12:00:00 04/03/2016 23:59:59 CLS Preadmit ALLEN LOPEZ [facility] CARD HTN [id number] 03/07/2016 13:52:00 03/07/2016 23:59:59 CLS Outpatient OLIVER COBOS MD [facility] [id number] 03/07/2016 14:45:00 03/07/2016 16:00:00 DIS Outpatient OLIVER COBOS MD [facility] WOUNDCARE [id number] 02/15/2016 00:08:00 02/15/2016 23:59:59 CLS Preadmit OLIVER COBOS MD [facility] NON PRESSURE CHRONIC ULCER OF RT CALF [id number] 01/12/2016 10:28:00 02/14/2016 00:01:00 DIS Outpatient OLIVER COBOS MD [facility] NON PRESSURE CHRONIC ULCER OF RT CALF [id number] 12/22/2015 08:30:00 12/26/2015 08:38:00 DIS Outpatient OLIVER COBOS MD [facility] WOUNDCARE [id number] 12/01/2015 08:10:00 12/01/2015 23:59:59 CLS Outpatient JOHN MCCARTNEY MD [facility] SDC ANEMIA [id number] 11/25/2015 09:01:00 12/01/2015 00:01:00 DIS Outpatient OLIVER COBOS MD [facility] WOUNDCARE [id number] 11/04/2015 10:45:00 11/16/2015 14:00:00 DIS Outpatient OLIVER COBOS MD [facility] 4TH RCR NON PRESSSUR CHRONIC ULCER OF RIGHT CALF [id number] 09/27/2015 15:16:00 09/27/2015 23:59:59 CLS Outpatient DIA CORDERO APRN [facility] LAB NON CHRONIC ULSER RT CALF [id number] 03/17/2014 11:38:00 03/22/2014 13:03:00 DIS Outpatient JOHN MCCARTNEY MD [facility] WOUNDCARE VENOUS INSUFF ULCER RLE [id number] 03/10/2014 11:34:00 03/10/2014 23:59:59 CLS Outpatient JOHN MCCARTNEY MD [facility] RAD ROUTINE [id number] 01/26/2018 16:07:00 ACT Inpatient JOHN MCCARTNEY MD [facility] ICU NEW ONSET A-FIB RVR [id number] 01/24/2018 08:56:00 ACT Outpatient OLIVER COBOS MD [facility] WOUNDCARE [id number] 10/03/2015 10:29:00 Document Registration [id number] 10/03/2015 10:29:00 Document Registration [id number] 10/31/2011 15:01:00 Document Registration [id number] 10/26/2011 15:04:00 Document Registration [id number] 06/06/2010 00:00:00 Document Registration [id number] 05/12/2010 09:30:00 Document Registration [id number] 05/09/2010 07:30:00 Document Registration [id number] 03/17/2014 11:38:50 ACT Document Registration
[2018-01-26 17:39] LABS: BILIRUBIN,URINE NEGATIVE (NEGATIVE); CLARITY,URINE CLEAR; COLOR,URINE YELLOW; GLUCOSE, URINE (UA) NEGATIVE (NEGATIVE); KETONES,URINE NEGATIVE (NEGATIVE); LEUKOCYTE ESTERASE ,URINE 1+ (NEGATIVE); NITRITE,URINE NEGATIVE (NEGATIVE); PH,URINE 5 (5-9); PROTEIN,URINE 1+ (NEGATIVE); UROBILINOGEN,URINE NORMAL (NORMAL)
--- NOTE | 2018-01-26 17:54 | Consultation-Cardiology ---
HPI-Cardiology Cardiology Consultation: Date of Consultation 01/26/18 Time Seen by a Provider: 17:10 Date of Admission Attending Physician Liu Roblero MD Admitting Physician Liu Roblero MD Consulting Physician MEL HAHN MD, MA, FACP, FACC, FSCAI, CCDS Primary account clerk: Dr Whittington HPI: Chief Complaint: Reason for consultation: A Fib with RVR 72 yo woman who [facility] with weakness and palp and found to have new A Fib with RVR Notes chronic shortness of breath and gen weakness and bilat leg weakness Has chronic bilat leg swelling Denies cp or syncope Denies recent fever or chills Review of Systems-Cardiology Review of Systems Constitutional: malaise, tiredness; No weight loss, No weight gain Eyes: No vision change Ears/Nose/Throat: No ear discharge, No nasal drainage, No recent hearing loss Respiratory: As described under HPI Cardiovascular: As described under HPI Gastrointestinal: No constipation, No diarrhea, No nausea, No vomiting Genitourinary: No dysuria, No hematuria Musculoskeletal: back pain (chornic) Skin: ulcerations (reports chronic leg ulcers) Psychiatric/Neurological: No seizure, No focal weakness, No syncope Hematologic: No bleeding abnormalities FTC-Zkjdam-Bcbyfv Hx Patient Social History Alcohol Use: Denies Use Recreational Drug Use: No Smoking Status: Never a Smoker 2nd Hand Smoke Exposure: No Recent Foreign Travel: No Recent Infectious Disease Expo: No Hospitalization with Isolation: Denies Physical Abuse Screen: No Sexual Abuse: No Immunizations Up To Date Tetanus Booster (TDap): Unknown Date of Influenza Vaccine: Dec 24, 2017 Past Medical History PMH As described under Assessment. Family Medical History Family Medical History: Does not report fam h/o dilip CAD or SCD Family History: Patient reports no known family medical history. Allergies and Home Medications Allergies Coded Allergies: NSAIDS (Non-Steroidal Anti-Inflamma (Verified Allergy, Unknown, 10/13/15) celecoxib (Unverified Allergy, Unknown, 12/05/17) penicillin G (Verified Allergy, Unknown, HAS RECEIVED ANCEF W/O ISSUE, ) Home Medications Acetaminophen 500 Mg Tablet, 1,000 MG PO Q4H PRN for PAIN-MILD, (Reported) Albuterol Sulfate 18 Gm Hfa.aer.ad, 2 PUFF INH Q4H PRN for SHORTNESS OF BREATH, (Reported) Ascorbate Calcium 500 Mg Tablet, 500 MG PO 1200, (Reported) Atorvastatin Calcium 40 Mg Tablet, 40 MG PO HS, (Reported) Calcium Carbonate 600 Mg Tablet, 600 MG PO DAILY@0700 Prescribed by: JANNET GOTTI on 12/24/17737 Cholecalciferol (Vitamin D3) 2,000 Unit Capsule, 2,000 UNIT PO 1200, (Reported) Cyanocobalamin 100 Mcg Tablet, 200 MCG PO 1200, (Reported) Fluticasone/Salmeterol 1 Each Blst.w.dev, 1 PUFF INH BID, (Reported) Folic Acid 1 Mg Tablet, 1 MG PO 1200, (Reported) Furosemide 20 Mg Tablet, 20 MG PO NEEDED PRN for swelling Prescribed by: ALLEN CORDERO on 12/24/17 122 Metoprolol Succinate 25 Mg Tab.er.24h, 25 MG PO DAILY Prescribed by: JANNET GOTTI on 12/24/17737 Montelukast Sodium 10 Mg Tablet, 10 MG PO HS, (Reported) Tramadol HCl 50 Mg Tablet, 50-100 MG PO Q6H PRN for PAIN-MODERATE Prescribed by: JANNET GOTTI on 12/24/17737 Patient Home Medication List Home Medication List Reviewed: Yes Physical Exam-Cardiology Physical Exam Vital Signs/I&O 01/26/18 01/26/18 01/26/18 01/26/18 15:05 15:05 15:41 16:52 Temp 96.1 96.1 Pulse 122 130 130 Resp 22 22 B/P (MAP) 113/83 (93) 113/83 113/83 (93) Pulse Ox 99 96 96 O2 Delivery Nasal Cannula Nasal Cannula Nasal Cannula O2 Flow Rate 2.00 2.00 Capillary Refill : Less Than 3 Seconds Constitutional: AAO x 3, well-developed, well-nourished, other (obese) HEENT: EOMI, hearing is well preserved; No xanthelasmas are seen Neck: carotid pulses are 2 + bilaterally, with good upstrokes Respiratory: No accessory muscle use; other (fair to good bilat air entry, somewhat diminished at the bases) Cardiovascular: regular rate-rhythm, S1 and S2, systolic murmur (soft MICHEAL at card base) Gastrointestinal: No tender; soft; No guarding, No rebound; audible bowel sounds Extremities: swelling (bilat pitting and nonpitting edema, moc); No clubbing, No cyanosis Neurologic/Psychiatric: oriented x 3, grossly intact, power is 5/5 both on sides Skin: No rash on exposed areas; other (legs under ALEX wrap that were not removed. She reports bilat leg ulcer, more on the R, managed by Dr salgado) Data Review Labs Laboratory Tests 01/26/18 15:25: White Blood Count 7.5, Red Blood Count 4.20L, Hemoglobin 12.2, Hematocrit 40, Mean Corpuscular Volume 95, Mean Corpuscular Hemoglobin 29, Mean Corpuscular Hemoglobin Concent 31L, Red Cell Distribution Width 16.9H, Platelet Count 215, Mean Platelet Volume 10.1, Neutrophils (%) (Auto) 69, Lymphocytes (%) (Auto) 19 , Monocytes (%) (Auto) 11, Eosinophils (%) (Auto) 1, Basophils (%) (Auto) 0, Neutrophils # (Auto) 5.2, Lymphocytes # (Auto) 1.4, Monocytes # (Auto) 0.8, Eosinophils # (Auto) 0.1, Basophils # (Auto) 0.0, Prothrombin Time 25.4H, INR Comment 2.3H, Activated Partial Thromboplast Time 32, Sodium Level 140, Potassium Level 4.7, Chloride Level 105, Carbon Dioxide Level 21, Anion Gap 14, Blood Urea Nitrogen 23H, Creatinine 1.11, Estimat Glomerular Filtration Rate 48 , BUN/Creatinine Ratio 21, Glucose Level 166H, Calcium Level 9.5, Corrected Calcium 9.9, Magnesium Level 1.6L, Total Bilirubin 0.6, Aspartate Amino Transf ( AST/SGOT) 45H, Alanine Aminotransferase (ALT/SGPT) 29, Alkaline Phosphatase 195H , Myoglobin 36.5, Troponin I < 0.30, B-Type Natriuretic Peptide 1231.9H, Total Protein 6.2L, Albumin 3.5 01/26/18 17:30: Laboratory Tests 01/26/18 15:25 A/P-Cardiology Assessment/Admission Diagnosis Newly diagnosed PAF with RVR Nonhealing foot ulcers, venous stasis ulcers. This is managed by Dr Salgado PAD. CT angio of aorta with runoff in Nov 2017 was a suboptimal study and reported a single vessel runoff to the lever of the feet (patent post tibial on both sides) Generalized weakness and loss of energy for which she has required a long admission to Rehab and was d/c'd to skilled care in Dec 2017 Obesity with obesity-hypovent and ADITI (treated with CPAP) CKD 2 Hypertension Hyperlipidemia, by history Anemia, myelodysplastic, has been followed by Dr. Troncoso. H/o COPD Discussion and Recomendations * iv dilt for rate control * Apixaban for stroke prophylaxis * Continue prev meds * Monitor labs * I spoke with her, explained treatment plan, and answered questions Clinical Quality Measures AMI/AHF: ASA po Prior to arrival: No DVT/VTE Risk/Contraindication: Risk Factor Score Per Nursin RFS Level Per Nursing on Admit: 4+=Very High MEL HAHN MD FACP FAC CCDS Jan 26, 2018 17:54
[2018-01-26 18:06] LABS: AMORPHOUS SEDIMENT,UR MOD AMOR URATES /LPF; BACTERIA,URINE MODERATE /HPF; GRANULAR CASTS,URINE RARE /LPF; HYALINE CASTS, URINE 25-50 /LPF; RBC,URINE RARE /HPF; SQUAMOUS EPITHELIAL CELL,UR 0-2 /HPF
[2018-01-26] MEDS: MAGNESIUM 1 GM/100 ML IVPB IV SCH ×4 (18:56→23:17)
[2018-01-26] MEDS: inSUlin ASPART (NovoLOG) 1 UNIT/0.01 ML (CHARGE PER UNIT) SC SCH (21:40)
[2018-01-26] MEDS: APIXABAN 5 MG (ELIQUIS) TABLET PO SCH (21:52)
[2018-01-27] VITALS (23 sets, daily range): BP systolic 92–177; BP diastolic 66–107
[2018-01-27] MEDS: DILTIAZEM IV FOR DRIP 125 MG in NS (IVPB) 100 ML IV SCH ×3 (01:44→18:24)
[2018-01-27] MEDS: RT-ALBUTEROL SULF 2.5 MG/3 ML PRE-MIX VIAL INH SCH ×6 (02:37→22:13)
[2018-01-27 03:42] LABS: BASOPHILS % (AUTO) 0 % (0-10); EOSINOPHILS # (AUTO) 0.1 10^3/uL (0.0-0.3); EOSINOPHILS % (AUTO) 2 % (0-10); HEMATOCRIT 37 % (35-52); HEMOGLOBIN 11.9 G/DL (11.5-16.0); LYMPHOCYTES # (AUTO) 1.5 X 10^3 (1.0-4.0); LYMPHOCYTES % (AUTO) 21 % (12-44); MEAN CORPUSCULAR HEMOGLOBIN 30 PG (25-34); MEAN CORPUSCULAR HGB CONC 32 G/DL (32-36); MEAN CORPUSCULAR VOLUME 95 FL (80-99); MEAN PLATELET VOLUME 10.2 FL (7.4-10.4); MONOCYTES # (AUTO) 0.8 X 10^3 (0.0-1.0); MONOCYTES % (AUTO) 11 % (0-12); NEUTROPHILS # (AUTO) 4.7 X 10^3 (1.8-7.8); NEUTROPHILS % (AUTO) 66 % (42-75); PLATELET COUNT 213 10^3/uL (130-400); RED BLOOD COUNT 3.93 10^6/uL (4.35-5.85); RED CELL DISTRIBUTION WIDTH 16.8 % (10.0-14.5)
[2018-01-27 04:03] LABS: BUN/CREATININE RATIO 26; CARBON DIOXIDE 23 MMOL/L (21-32); CHLORIDE 106 MMOL/L (98-107); CREATININE SERUM 0.84 MG/DL (0.60-1.30); GFR ESTIMATED > 60; GLUCOSE 127 MG/DL (70-105); MAGNESIUM 2.1 MG/DL (1.8-2.4); PHOSPHORUS 3.4 MG/DL (2.3-4.7); POTASSIUM 4.1 MMOL/L (3.6-5.0); SODIUM 139 MMOL/L (135-145)
[2018-01-27 04:04] LABS: CHOLESTEROL 94 MG/DL (< 200); HDL CHOLESTEROL 29 MG/DL (40-60); TRIGLYCERIDES 67 MG/DL (<150); VLDL CHOLESTEROL 13 MG/DL (5-40)
[2018-01-27] MEDS: KCL 20 MEQ TAB (K-DUR) PO SCH (06:43)
[2018-01-27] MEDS: MAGNESIUM 1 GM/100 ML IVPB 100 ML IV SCH (06:43)
[2018-01-27] MEDS: POTASSIUM CL 10MEQ/50ML IVPB 50 ML IV SCH (06:43)
[2018-01-27] MEDS: inSUlin ASPART (NovoLOG) 1 UNIT/0.01 ML (CHARGE PER UNIT) SC SCH ×4 (06:44→21:16)
[2018-01-27] MEDS ORDERED: LIDOCAINE 2% VISCOUS 15 ML UDC PO NR (07:45)
[2018-01-27] MEDS ORDERED: NS IV 500 ML 500 ML IV SCH (07:45)
[2018-01-27] MEDS ORDERED: NS IV 1000 ML 1,000 ML IV ONE (07:50)
--- NOTE | 2018-01-27 07:52 | Cardiology Progress Note ---
Subjective Date Seen by Provider: Jan 27, 2018 Time Seen by Provider: 07:47 Subjective/Events-last exam Patient is laying down in bed, using nasal Pap. Reporting episodes of chest pain with a rapid heart rate, currently her heart rate is better controlled on Cardizem drip. No palpitation at this point. Review of Systems General: No Chills, No Night Sweats, No Fatigue, No Malaise, No Appetite, No Other HEENT: No Head Aches, No Visual Changes, No Eye Pain, No Ear Pain, No Dysphasia , No Sinus Congestion, No Post Nasal Drip, No Sore Throat, No Other Pulmonary: Dyspnea; No Cough, No Pleuritic Chest Pain, No Other Cardiovascular: Chest Pain, Palpitations; No: Orthopnea, Paroxysmal Noc. Dyspnea, Edema, Lt Headedness, Other Objective-Cardiology Exam Last Set of Vital Signs Vital Signs 01/26/18 01/27/18 01/27/18 01/27/18 21:41 04:00 06:00 07:12 Temp 96.8 Pulse 74 Resp 16 B/P (MAP) 135/66 (89) Pulse Ox 93 O2 Delivery NIV CPAP O2 Flow Rate 2.00 FiO2 32 Capillary Refill : Less Than 3 Seconds I&O Intake and Output 01/27/18 00:00 Intake Total 0 ml Output Total 550 ml Balance -550 ml Intake Oral 0 ml Output Urine Total 550 ml Daily Weight Change No General: Alert, Oriented X3, Cooperative HEENT: Atraumatic, PERRLA Neck: Supple, No JVD, No Thyromegaly Lungs: Clear to Auscultation, Normal Air Movement Heart: Normal S1, Normal S2, Other (Atrial fibrillation, distant heart sound) Abdomen: Normal Bowel Sounds, Soft, No Tenderness, No Hepatosplenomegaly, No Masses Extremities: No Clubbing, No Cyanosis, Normal Pulses, No Tenderness/Swelling, Other (Feet are wrapped, peripheral edema) Skin: No Rashes, No Breakdown, No Significant Lesion Neuro: Normal Gait, Normal Speech, Strength at 5/5 X4 Ext, Normal Tone, Sensation Intact Psych/Mental Status: Mental Status NL, Mood NL Results Lab Laboratory Tests 01/26/18 15:25 01/27/18 03:15 A/P-Cardiology Admission Diagnosis Atrial fibrillation Tachycardia Chest pain nonspecific etiology Hypertension Hyperlipidemia Assessment/Plan Newly diagnosed PAF with RVR, rate is better controlled on Cardizem drip, still in atrial fibrillation, has been on Eliquis as an outpatient for the past 2 weeks. I am planning to proceed with CHRISTOS and electrical cardioversion today. Trying to switch Cardizem to oral. Has been on Toprol as an outpatient Chest pain, probably secondary to tachycardia, underlying coronary artery disease cannot be entirely ruled out. Cardiac enzymes were negative. Patient will need to have a stress test once clinically more stable Nonhealing foot ulcers, venous stasis ulcers. This is managed by Dr Naomi REBOLLAR. CT angio of aorta with runoff in Nov 2017 was a suboptimal study and reported a single vessel runoff to the lever of the feet (patent post tibial on both sides) Generalized weakness and loss of energy for which she has required a long admission to Rehab and was d/c'd to skilled care in Dec 2017 Obesity with obesity-hypovent and ADITI (treated with CPAP) Chronic kidney disease, and tinea to monitor Hypertension, planning to restart medication and monitor Hyperlipidemia, continue to monitor lipids Anemia, myelodysplastic, has been followed by Dr. Troncoso. H/o COPD Clinical Quality Measures AMI/AHF: ASA po Prior to arrival: No DVT/VTE Risk/Contraindication: Risk Factor Score Per Nursin RFS Level Per Nursing on Admit: 4+=Very High ARIANA BARROS MD Jan 27, 2018 07:52
--- NOTE | 2018-01-27 07:53 | Cardiac Procedure Note-CS/ASA ---
Pre-Procedure Note Pre-Op Procedure Note H&P Reviewed The H&P was reviewed, patient examined and no changes noted. Date H&P Reviewed: Jan 27, 2018 Time H&P Reviewed: 07:52 Conscious Sedation Pre-Proced Time 07:53 ASA Score 3 For ASA 3 and 4: Consider anesthesia and medical clearance. Also, for patients with a history of failed moderate sedation consider anesthesia. Airway Lungs Heart ASA score ASA 1: a normal healthy patient ASA 2: a patient with a mild systemic disease (mid diabetes, controlled hypertension, obesity x ASA 3: a patient with a severe systemic disease that limits activity (angina , COPD, prior Myocardial infarction) ASA 4: a patient with an incapacitating disease that is a constant threat to life (CHF, renal failure) ASA 5: a moribund patient not expected to survive 24 hrs. (ruptured aneurysm) ASA 6: a declared brain patient whose organs are being harvested. For emergent operations, add the letter E after the classification Mallampati Classification Grade 3 Sedation Plan Analgesia, Amnesia, Plan communicated to team members, Discussed options with patient/fam, Discussed risks with patient/fam The patient is an appropriate candidate to undergo the planned procedure, sedation, and anesthesia. The patient immediately re-assessed prior to indication. ARIANA BARROS MD Jan 27, 2018 07:53
--- NOTE | 2018-01-27 08:26 | History & Physical-Hospitalist ---
History of Present Illness HPI/Chief Complaint Pt is a 72yoCF with a PMH of NIDDMII, HTN, PAD with nonhealing wounds, and chronic anemia who presented to the ER with CC of SOB from her NH at [facility]. She states she has been having SOB for the past couple of weeks but it got worse yesterday and the nurse caring for here "didn't like the way she looked" so sent her to the ER for evaluation where she was found to be in a-fib with RVR. She was started on a Cardizem gtt to help control her rate. She states she is feeling better today but is quite anxious due to the planned cardioversion. She otherwise has no complaints. She believes she has gained some weight over the past few days though. Source: patient Exam Limitations: no limitations Date Seen 01/27/18 Time Seen by a Provider: 08:24 Attending Physician Liu Roblero MD PCP Liu Roblero MD Referring Physician Date of Admission Jan 26, 2018 at 16:07 Home Medications & Allergies Home Medications Reviewed patient Home Medication Reconciliation performed by pharmacy medication reconciliations radio/tv technician and/or nursing. Patients Allergies have been reviewed. Allergies Allergies Coded Allergies NSAIDS (Non-Steroidal Anti-Inflamma (Verified Allergy, Unknown, 10/13/15) celecoxib (Unverified Allergy, Unknown, 12/05/17) penicillin G (Verified Allergy, Unknown, HAS RECEIVED ANCEF W/O ISSUE, 10/13/15 ) Past Wgxbdtm-Hcjdyw-[place]haf[place] Hx Past Med/Social Hx: Reviewed Nursing Past Med/Soc Hx Patient Social History Employed/Student: retired Alcohol Use: Denies Use Recreational Drug Use: No Smoking Status: Never a Smoker 2nd Hand Smoke Exposure: No Physical Abuse Screen: No Sexual Abuse: No Recent Foreign Travel: No Contact w/other who traveled: No Recent Hopitalizations: No Recent Infectious Disease Expo: No Immunizations Up To Date Tetanus Booster (TDap): Unknown Date of Influenza Vaccine: Dec 24, 2017 Seasonal Allergies Seasonal Allergies: Yes Past Medical History Respiratory: Asthma, Sleep Apnea Currently Using CPAP: Yes Currently Using BIPAP: No Cardiac: Atrial Fibrillation, High Cholesterol, Hypertension Sexually Transmitted Disease: No HIV/AIDS: No Female Reproductive Disorders: Denies Genitourinary: Bladder Infection Gastrointestinal: Hiatal Hernia Musculoskeletal: Osteoporosis, Arthritis, Chronic Back Pain Endocrine: Diabetes, Non-Insulin dep Are Your Blood Sugars Over 250: No Hearing Impairment: Denies Did You Recieve Any Treatments: No History of Blood Disorders: No Adverse Reaction to Blood Hernández: No Family History Reviewed Nursing Family Hx Patient reports no known family medical history. Heart Disease a-fib in siblings Review of Systems Constitutional: No fever; weakness, weight gain EENTM: no symptoms reported Respiratory: see HPI, dyspnea on exertion, short of breath Cardiovascular: see HPI; No chest pain; edema, Hx of Intervention Gastrointestinal: No abdominal pain; loss of appetite; No nausea, No vomiting Genitourinary: no symptoms reported Musculoskeletal: no symptoms reported Skin: no symptoms reported Psychiatric/Neurological: No Symptoms Reported Physical Exam Physical Exam Vital Signs Vital Signs - First Documented 01/26/18 01/26/18 15:05 21:41 Temp 96.1 Pulse 122 Resp 22 B/P (MAP) 113/83 (93) Pulse Ox 99 O2 Delivery Nasal Cannula O2 Flow Rate 2.00 FiO2 32 Capillary Refill : Less Than 3 Seconds Height, Weight, BMI Height: 5'5.00" Weight: 333lbs. 5.0oz. 151.480714pc; 54.5 BMI Method:Stated General Appearance: Chronically ill, Obese HEENT: PERRL/EOMI, Moist Mucous Membranes; No Scleral Icterus (L), No Scleral Icterus (R) Neck: Normal Inspection, Supple Respiratory: No Accessory Muscle Use, No Respiratory Distress, Decreased Breath Sounds (in bases, exam limited by body habitus), Other (nasal CPAP in place) Cardiovascular: No Murmur, Irregularly Irregular Gastrointestinal: Normal Bowel Sounds, Non Tender, Soft Genital/Rectal: Other (rush in place) Extremity: No Pedal Edema, Other (lower extremities wrapped in manju bandages, venous statis dermatitis visible surrounding edges of bandages) Neurologic/Psychiatric: Alert, Oriented x3, No Motor/Sensory Deficits, Normal Mood/Affect Results Results/Procedures Labs Laboratory Tests 01/26/18 15:25 01/27/18 03:15 Patient resulted labs reviewed. Imaging: Reviewed Imaging Report Assessment/Plan Admission Diagnosis A-fib with RVR Admission Status: Inpatient Order (span 2 midnights) Reason for Inpatient Admission: Plan for cardioversion, will likely take more than two midnights to stabilize for DC Diagnosis/Problems Diagnosis/Problems (1) Atrial fibrillation with rapid ventricular response Status: Acute Assessment & Plan: Cardiology consulted, appreciate recs On Eliquis On Cardizem Plan for cardioversion following CHRISTOS today (2) Hypertension Status: Chronic Assessment & Plan: Well controlled at this time Was taken off antihypertensives as an outpatient- will trend Qualifiers: Hypertension type: essential hypertension Qualified Codes: I10 - Essential (primary) hypertension (3) ADITI on CPAP Status: Chronic Assessment & Plan: Has home CPAP at bedside (4) Diabetes Status: Chronic Assessment & Plan: Currently diet controlled trend blood sugars ACHS SSI Qualifiers: Diabetes mellitus type: type 2 Diabetes mellitus intermodal customer service insulin use: without intermodal customer service use Diabetes mellitus complication status: with circulatory complication Diabetes mellitus complication detail: with peripheral angiopathy without gangrene Qualified Codes: E11.51 - Type 2 diabetes mellitus with diabetic peripheral angiopathy without gangrene (5) Ulcers of both lower extremities Status: Acute Assessment & Plan: Wound Care consulted, appreciate recs Qualifiers: Non-pressure ulcer stage: unspecified non-pressure ulcer stage Qualified Codes: L97.919 - Non-pressure chronic ulcer of unspecified part of right lower leg with unspecified severity; L97.929 - Non-pressure chronic ulcer of unspecified part of left lower leg with unspecified severity (6) Anemia Status: Chronic Assessment & Plan: Follows with Dr Troncoso Blood count currently WNL Qualifiers: Anemia type: unspecified type Qualified Codes: D64.9 - Anemia, unspecified Clinical Quality Measures AMI/AHF: ASA po Prior to arrival: No DVT/VTE Risk/Contraindication: Risk Factor Score Per Nursin RFS Level Per Nursing on Admit: 4+=Very High LUKE EMMANUEL MD Jan 27, 2018 8:26 am
--- NOTE | 2018-01-27 08:47 | Diagnostic Imaging Report ---
INDICATION: New onset atrial fibrillation. TECHNIQUE: Single frontal view of the chest. COMPARISON: 01/26/2018 FINDINGS: There is mild cardiomegaly with moderate central vascular congestion. There is a small right pleural effusion. Haziness over the lungs is thought to be due to overlying soft tissues. No focal airspace consolidation is seen. There is aortic atherosclerosis. Marked degenerative changes are seen in the shoulders bilaterally. IMPRESSION: 1. Cardiomegaly with central vascular congestion. 2. Small right pleural effusion. Dictated by: Dictated on workstation # [id number]
--- NOTE | 2018-01-27 09:31 | Cardioversion ---
Cardioversion PROCEDURE PHYSICIAN: Ariana Whittington DATE OF PROCEDURE: 01/27/18 DIRECT EXTERNAL ELECTRICAL CARDIOVERSION: Indications: Atrial Fibrillation with rapid ventricular rate Preoperative diagnoses: Atrial Fibrillation with rapid ventricular rate Postoperative diagnosis: Sinus rhythm, Successful Electrical Cardioversion Anesthesia: By Anesthesia services Complications: None Specimen: None Contrast: 0 Procedure Details: The patient was brought the labor arbitrator after informed consent was taken, all the risks and complications were explained including the risk of stroke. Electrical cardioversion was carried out with anesthesia support with propofol. 200 joules of synchronized shock was delivered through external patches which promptly restored sinus rhythm. The patient tolerated the procedure well. Conclusions: Successful electrical cardioversion in terminating atrial fibrillation ARIANA WHITTINGTON MD Jan 27, 2018 09:31
[2018-01-27] MEDS ORDERED: proPOfol 200 MG/20 ML (DIPRIVAN) VIAL IV ONE (09:35)
[2018-01-27] MEDS ORDERED: LIDOCAINE 2% VISCOUS 15 ML UDC PO ONE (09:45)
[2018-01-27] MEDS ORDERED: AMIODARONE FOR BOLUS 150 MG in D5W 100 ML IVPB 100 ML IV NR (09:45)
[2018-01-27] MEDS: APIXABAN 5 MG (ELIQUIS) TABLET PO SCH ×2 (10:05→21:20)
[2018-01-27] MEDS: AMIODARONE INJECTION 450 MG in D5W IV SOLUTION (EXCEL) 250 ML IV SCH ×2 (10:10→17:46)
[2018-01-27] MEDS: RT-ADVAIR HFA 115/21 MCG PER PUFF IH SCH ×2 (10:25→18:28)
[2018-01-27] MEDS ORDERED: MAGN125C PO (10:43)
[2018-01-27] MEDS ORDERED: POTA10TA10 PO (10:43)
[2018-01-27] MEDS ORDERED: CALC600T80 PO (10:43)
[2018-01-27] MEDS ORDERED: METO200T48 PO (10:43)
[2018-01-27] MEDS ORDERED: TRAM50TA2 PO (10:43)
[2018-01-27] MEDS ORDERED: APIX5TAB PO (10:43)
[2018-01-27] MEDS ORDERED: FURO40TA4 PO (10:43)
[2018-01-27] MEDS: FUROSEMIDE 40 MG/4 ML INJ (LASIX) IV SCH (11:49)
[2018-01-27] MEDS ORDERED: ACETAMINOPHEN 500 MG TAB (TYLENOL) PO PRN (12:45)
--- NOTE | 2018-01-27 13:46 | Anesthesia-Procedure Note ---
Procedures/Interventions Procedure Start/Stop/Diagnosis Date of Procedure: Jan 27, 2018 Start Time: 09:02 Referring Physician: Dr Whittington Preprocedural Diagnosis: A-Fib Brief History Anesthesia Note ([id number]) Called to ICU 9 for sedation/MAC for CHRISTOS/cardioversion. Brief history obtained from patient and Dr Whittington. NPO status verified. Pt maintained spontaneous ventilation throughout, tolerated the procedure well and returned to sinus rhythm after cardioversion. Will be available if needed. Stop Time: 09:20 Postprocedural Diagnosis: Sinus Rhythm CHRISTOS/Cardioversion Anesthesia Type: MAC ASA Class: 3 Medications Propofol 100 mg IV in divided doses. Monitors and Equipment: BP Cuff - Left, Continuous EKG, End Tidal CO2, IV, Pulse Oximeter, V Lead EKG BELINDA URIAS DO Jan 27, 2018 13:46
--- NOTE | 2018-01-27 14:58 | Anesthesia-General Post-Op ---
MAC Patient Condition Mental Status/LOC: Same as Preop Cardiovascular: Satisfactory Nausea/Vomiting: Absent Respiratory: Satisfactory Pain: Controlled Complications: Absent Post Op Complications Complications None Follow Up Care/Instructions Patient Instructions None needed. Anesthesiology Discharge Order Discharge Order Patient was seen after the procedure and she was doing well, no complaints, stable vital signs, no apparent adverse anesthesia problems. BELINDA URIAS DO Jan 27, 2018 14:58
[2018-01-27] MEDS ORDERED: MONTELUKAST 10 MG (SINGULAIR) TAB PO SCH (21:00)
[2018-01-27] MEDS ORDERED: ATORVASTATIN 40 MG (LIPITOR) TABLET PO SCH (21:00)
[2018-01-27] MEDS: AMIODARONE 200 MG (CORDARONE) TAB PO SCH (21:20)
[2018-01-27] MEDS: meTOprolol TARTRATE 50 MG (LOPRESSOR) TAB PO SCH (21:21)
--- NOTE | 2018-01-27 22:26 | Wound Care Assessment ---
Wound Care Assessment Date Seen by Provider: Jan 27, 2018 Time Seen by Provider: 18:45 Chief Complaint Bilateral calf ulcers. HPI The patient is a 72 year old female known to me from the out-patient clinic, who has bilateral venous insufficiency ulcers. These have been improving with her present care regimen. This will be continued. Past Medical History: Admits Diabetes Type II, Admits Heart Disease Smoking Status: Never a Smoker Recreational Drug Use: No Alcohol Use: Denies Use Review of Systems Pulmonary: Dyspnea Cardiovascular: Palpitations Exam Vital Signs Date Time Temp Pulse Resp B/P (MAP) Pulse Ox O2 Delivery O2 Flow Rate FiO2 01/27/18 22:13 Nasal Cannula 2.00 01/27/18 20:25 97.6 01/27/18 20:15 97 01/27/18 18:00 67 31 01/26/18 21:41 32 Capillary Refill : Less Than 3 Seconds General Appearance: mild distress Respiratory: respiratory distress (Mild) Skin: other (Bilateral leg ulcers, full thickness.) Skin Problem Location: lower extremities Results Laboratory Tests 01/27/18 03:15: White Blood Count 7.0, Red Blood Count 3.93L, Hemoglobin 11.9, Hematocrit 37, Mean Corpuscular Volume 95, Mean Corpuscular Hemoglobin 30, Mean Corpuscular Hemoglobin Concent 32, Red Cell Distribution Width 16.8H, Platelet Count 213, Mean Platelet Volume 10.2, Neutrophils (%) (Auto) 66, Lymphocytes (%) (Auto) 21 , Monocytes (%) (Auto) 11, Eosinophils (%) (Auto) 2, Basophils (%) (Auto) 0, Neutrophils # (Auto) 4.7, Lymphocytes # (Auto) 1.5, Monocytes # (Auto) 0.8, Eosinophils # (Auto) 0.1, Basophils # (Auto) 0.0, Sodium Level 139, Potassium Level 4.1, Chloride Level 106, Carbon Dioxide Level 23, Anion Gap 10, Blood Urea Nitrogen 22H, Creatinine 0.84, Estimat Glomerular Filtration Rate > 60, BUN /Creatinine Ratio 26, Glucose Level 127H, Calcium Level 9.0, Phosphorus Level 3.4, Magnesium Level 2.1, Triglycerides Level 67, Cholesterol Level 94, LDL Cholesterol Direct 50, VLDL Cholesterol 13, HDL Cholesterol 29L, Thyroid Stimulating Hormone (TSH) 3.00 01/27/18 11:50: Glucometer 144H 01/27/18 17:07: Glucometer 120H 01/27/18 21:15: Glucometer 130H Assessment/Plan/Dx 1. Bilateral lower extremity venous ulceration, full thickness, stable. 2. Atrial fibrillation. Plan: Continue Hydrofera Blue/Kerlix/Yonny dressings. OLIVER COBOS MD Jan 27, 2018 22:26
[2018-01-28] VITALS (16 sets, daily range): BP systolic 92–177; BP diastolic 66–109
[2018-01-28] MEDS: RT-ALBUTEROL SULF 2.5 MG/3 ML PRE-MIX VIAL INH SCH ×4 (01:59→14:19)
[2018-01-28 03:58] LABS: BASOPHILS % (AUTO) 0 % (0-10); EOSINOPHILS # (AUTO) 0.1 10^3/uL (0.0-0.3); EOSINOPHILS % (AUTO) 1 % (0-10); HEMATOCRIT 38 % (35-52); HEMOGLOBIN 11.5 G/DL (11.5-16.0); LYMPHOCYTES # (AUTO) 1.2 X 10^3 (1.0-4.0); LYMPHOCYTES % (AUTO) 16 % (12-44); MEAN CORPUSCULAR HEMOGLOBIN 29 PG (25-34); MEAN CORPUSCULAR HGB CONC 30 G/DL (32-36); MEAN CORPUSCULAR VOLUME 96 FL (80-99); MEAN PLATELET VOLUME 9.8 FL (7.4-10.4); MONOCYTES # (AUTO) 0.8 X 10^3 (0.0-1.0); MONOCYTES % (AUTO) 11 % (0-12); NEUTROPHILS # (AUTO) 5.2 X 10^3 (1.8-7.8); NEUTROPHILS % (AUTO) 71 % (42-75); PLATELET COUNT 212 10^3/uL (130-400); RED BLOOD COUNT 3.96 10^6/uL (4.35-5.85); RED CELL DISTRIBUTION WIDTH 16.7 % (10.0-14.5); WHITE BLOOD COUNT 7.2 10^3/uL (4.3-11.0)
[2018-01-28 04:18] LABS: CREATININE SERUM 0.92 MG/DL (0.60-1.30); MAGNESIUM 1.9 MG/DL (1.8-2.4); PHOSPHORUS 3.3 MG/DL (2.3-4.7); POTASSIUM 4.1 MMOL/L (3.6-5.0)
[2018-01-28] MEDS: POTASSIUM CL 10MEQ/50ML IVPB 50 ML IV SCH (04:28)
[2018-01-28] MEDS: KCL 20 MEQ TAB (K-DUR) PO SCH (04:29)
[2018-01-28] MEDS: MAGNESIUM 1 GM/100 ML IVPB 100 ML IV SCH (04:29)
[2018-01-28] MEDS: inSUlin ASPART (NovoLOG) 1 UNIT/0.01 ML (CHARGE PER UNIT) SC SCH (04:29)
[2018-01-28] MEDS: FUROSEMIDE 40 MG/4 ML INJ (LASIX) IV SCH (06:00)
[2018-01-28] MEDS: RT-ADVAIR HFA 115/21 MCG PER PUFF IH SCH (06:41)
--- NOTE | 2018-01-28 07:44 | Cardiology Progress Note ---
Subjective Date Seen by Provider: Jan 28, 2018 Time Seen by Provider: 07:43 Subjective/Events-last exam Patient is laying down in bed, denied any chest pain or shortness of breath. Using C Pap. No palpitation. Heart rate is controlled Review of Systems General: No Chills, No Night Sweats, No Fatigue, No Malaise, No Appetite, No Other HEENT: No Head Aches, No Visual Changes, No Eye Pain, No Ear Pain, No Dysphasia , No Sinus Congestion, No Post Nasal Drip, No Sore Throat, No Other Pulmonary: Dyspnea; No Cough, No Pleuritic Chest Pain, No Other Cardiovascular: Edema; No: Chest Pain, Palpitations, Orthopnea, Paroxysmal Noc. Dyspnea, Lt Headedness, Other Objective-Cardiology Exam Last Set of Vital Signs Vital Signs 01/26/18 01/28/18 01/28/18 21:41 06:00 06:42 Pulse 62 Resp 19 B/P (MAP) 155/83 (107) Pulse Ox 95 O2 Delivery NIV CPAP O2 Flow Rate 2.00 FiO2 32 Capillary Refill : Less Than 3 Seconds I&O Intake and Output 01/28/18 00:00 Intake Total 1230 ml Output Total 1125 ml Balance 105 ml Intake Oral 732 ml IV Total 498 ml Output Urine Total 1125 ml General: Alert, Oriented X3, Cooperative HEENT: Atraumatic, PERRLA Neck: Supple, No JVD, No Thyromegaly Lungs: Clear to Auscultation, Normal Air Movement Heart: Normal S1, Normal S2, Other (Atrial fibrillation, distant heart sound) Abdomen: Normal Bowel Sounds, Soft, No Tenderness, No Hepatosplenomegaly, No Masses Extremities: No Clubbing, No Cyanosis, Normal Pulses, No Tenderness/Swelling, Other (Feet are wrapped, peripheral edema) Skin: No Rashes, No Breakdown, No Significant Lesion Neuro: Normal Gait, Normal Speech, Strength at 5/5 X4 Ext, Normal Tone, Sensation Intact Psych/Mental Status: Mental Status NL, Mood NL Results Lab Laboratory Tests 01/28/18 03:40 A/P-Cardiology Admission Diagnosis Atrial fibrillation Tachycardia Chest pain nonspecific etiology Hypertension Hyperlipidemia Assessment/Plan Newly diagnosed PAF with RVR, rate is better controlled on Cardizem drip, CHRISTOS was done which showed biatrial enlargement and prominent right heart chambers, underwent cardioversion and maintained sinus rhythm overnight, okay for discharge from cardiology standpoint, need to continue on amiodarone and Eliquis Chest pain, probably secondary to tachycardia, underlying coronary artery disease cannot be entirely ruled out. Cardiac enzymes were negative. Patient will need to have a stress test as an outpatient Nonhealing foot ulcers, venous stasis ulcers. This is managed by Dr Naomi REBOLLAR. CT angio of aorta with runoff in Nov 2017 was a suboptimal study and reported a single vessel runoff to the lever of the feet (patent post tibial on both sides) Generalized weakness and loss of energy for which she has required a long admission to Rehab and was d/c'd to skilled care in Dec 2017 Obesity with obesity-hypovent and DAITI (treated with CPAP) Chronic kidney disease, and tinea to monitor Hypertension, planning to restart medication and monitor Hyperlipidemia, continue to monitor lipids Anemia, myelodysplastic, has been followed by Dr. Troncoso. H/o COPD Okay for discharge from cardiology standpoint, follow-up as an outpatient Clinical Quality Measures AMI/AHF: ASA po Prior to arrival: No DVT/VTE Risk/Contraindication: Risk Factor Score Per Nursin RFS Level Per Nursing on Admit: 4+=Very High ARIANA BARROS MD Jan 28, 2018 07:44
[2018-01-28] MEDS ORDERED: METO-352 PO (07:48)
[2018-01-28] MEDS ORDERED: AMIO200T4 PO (07:48)
--- NOTE | 2018-01-28 07:57 | Discharge Summary-Hospitalist ---
Diagnosis/Chief Complaint Date of Admission Jan 26, 2018 at 4:07 pm Date of Discharge Discharge Date: Jan 28, 2018 Admission Diagnosis A-fib with RVR Discharge Diagnosis (1) Atrial fibrillation with rapid ventricular response Status: Acute Assessment & Plan: Cardiology consulted, appreciate recs On Eliquis On Cardizem Plan for cardioversion following CHRISTOS today (2) Hypertension Status: Chronic Assessment & Plan: Well controlled at this time Was taken off antihypertensives as an outpatient- will trend (3) ADITI on CPAP Status: Chronic Assessment & Plan: Has home CPAP at bedside (4) Diabetes Status: Chronic Assessment & Plan: Currently diet controlled trend blood sugars ACHS SSI (5) Ulcers of both lower extremities Status: Acute Assessment & Plan: Wound Care consulted, appreciate recs (6) Anemia Status: Chronic Assessment & Plan: Follows with Dr Troncoso Blood count currently WNL Discharge Summary Discharge Physical Exam Allergies: Coded Allergies: NSAIDS (Non-Steroidal Anti-Inflamma (Verified Allergy, Unknown, 10/13/15) celecoxib (Unverified Allergy, Unknown, 12/05/17) penicillin G (Verified Allergy, Unknown, HAS RECEIVED ANCEF W/O ISSUE, ) Vitals & I&Os Vital Signs Date Time Temp Pulse Resp B/P (MAP) Pulse Ox O2 Delivery O2 Flow Rate FiO2 01/28/18 15:00 68 12 141/80 96 Nasal Cannula 2.00 01/28/18 07:50 98.8 General Appearance: No Apparent Distress, Chronically ill Respiratory: Lungs Clear, No Respiratory Distress Cardiovascular: Regular Rate, Rhythm, No Murmur Neurologic/Psychiatric: Alert, Oriented x3 Hospital Course Pt was admitted for atrial fibrillation with RVR. She was started on a cardizem gtt and admitted to the ICU. Cardiology was consulted and recommended CHRISTOS with cardioversion which she successfully underwent. She was then started on an amiodraone gtt for 24 hours post conversion and transitioned to oral amiodarone. She was discharged back to the [facility] in stable condition on oral amiodarone and to continue on her Eliquis for stroke prophylaxis. Labs (last 24 hrs) Microbiology 01/26/18 MRSA Screen - Final, Complete MRSA not isolated Patient resulted labs reviewed. Pending Labs Imaging: Reviewed Imaging Report Discussion & Recommendations Discharge Planning: >30 minutes discharge planning Discharge Home Medications: Active Scripts Active Toprol Xl (Metoprolol Succinate) 50 Mg Tab.er.24h 50 Mg PO DAILY Amiodarone HCl 200 Mg Tablet 200 Mg PO UD Take 400 mg twice daily for one week then 200 mg twice daily for 4 weeks then 200 mg daily Reported Tramadol HCl 50 Mg Tablet 50-100 Mg PO Q6H PRN Calcium Carbonate 600 Mg Tablet 600 Mg PO DAILY Eliquis (Apixaban) 5 Mg Tablet 5 Mg PO BID Magnesium Citrate 125 Mg Capsule 250 Mg PO HS TAKES 2 (125MG) CAPSULES Potassium Chloride 10 Meq Tablet.er 10 Meq PO DAILY Furosemide 40 Mg Tablet 40 Mg PO DAILY Ventolin Hfa (Albuterol Sulfate) 18 Gm Hfa.aer.ad 2 Puff INH Q4H PRN Advair 250-50 Diskus (Fluticasone/Salmeterol) 1 Each Blst.w.dev 1 Puff INH BID Tylenol Extra Strength (Acetaminophen) 500 Mg Tablet 1,000 Mg PO Q4H PRN Atorvastatin Calcium 40 Mg Tablet 40 Mg PO HS Montelukast Sodium 10 Mg Tablet 10 Mg PO HS Vitamin D3 (Cholecalciferol (Vitamin D3)) 2,000 Unit Capsule 2,000 Unit PO DAILY Vitamin C (Ascorbate Calcium) 500 Mg Tablet 500 Mg PO DAILY Folic Acid 1 Mg Tablet 1 Mg PO DAILY Vitamin B-12 (Cyanocobalamin) 100 Mcg Tablet 200 Mcg PO DAILY Instructions to patient/family Please see electronic discharge instructions given to patient. Clinical Quality Measures AMI/AHF: ASA po Prior to arrival: No DVT/VTE Risk/Contraindication: Risk Factor Score Per Nursin RFS Level Per Nursing on Admit: 4+=Very High Problem Qualifiers (1) Hypertension: Hypertension type: essential hypertension Qualified Codes: I10 - Essential ( primary) hypertension (2) Diabetes: Diabetes mellitus type: type 2 Diabetes mellitus keno terminal operator insulin use: without keno terminal operator use Diabetes mellitus complication status: with circulatory complication Diabetes mellitus complication detail: with peripheral angiopathy without gangrene Qualified Codes: E11.51 - Type 2 diabetes mellitus with diabetic peripheral angiopathy without gangrene (3) Ulcers of both lower extremities: Non-pressure ulcer stage: unspecified non-pressure ulcer stage Qualified Codes : L97.919 - Non-pressure chronic ulcer of unspecified part of right lower leg with unspecified severity; L97.929 - Non-pressure chronic ulcer of unspecified part of left lower leg with unspecified severity (4) Anemia: Anemia type: unspecified type Qualified Codes: D64.9 - Anemia, unspecified LUKE EMMANUEL MD Jan 28, 2018 07:57
[2018-01-28] MEDS: APIXABAN 5 MG (ELIQUIS) TABLET PO SCH (08:23)
[2018-01-28] MEDS: AMIODARONE 200 MG (CORDARONE) TAB PO SCH (08:23)
[2018-01-28] MEDS: meTOprolol TARTRATE 50 MG (LOPRESSOR) TAB PO SCH (08:23)
--- NOTE | 2018-01-28 10:08 | Diagnostic Imaging Report ---
Indication: Shortness of breath. Portable chest 3:13 AM There is heart size and pulmonary vascularity normal. Lungs are clear. There are no effusions or pneumothoraces. Impression: Suboptimal inspiration. No acute abnormalities seen in the chest. Dictated by: Dictated on workstation # [id number]
--- NOTE | 2018-01-28 12:25 | Discharge Inst-Skilled Nursing ---
Discharge Inst-Skilled NF Consult/Follow Up/Orders Follow Up Appt.: As listed in DC instructions. Skilled NF Admit to: [facility] Certification (SNF) I certify that SNF services are required to be given on an inpatient basis because of the above named patient's need for usp care on a continuing basis for the conditions(s) for which he/she was receiving inpatient hospital services prior to his/her transfer to the SNF. Half-Way Facility Order: Nursing Services, Investigative Analyst-Evaluate & Treat, Physical Therapy-Evaluate & Treat Discharge Diet: No Restrictions Daily Activity as Tolerated: Yes New & Resume Previous Orders Luke Cabrera Jan 28, 2018 12:25 Pneu Vac Indicated: Yes LUKE CABRERA MD Jan 28, 2018 12:25 pm
== END 2018-01-28 15:02 | DRG 309 ==
LOC: EDUNIT# 15:05 → ER 15:07 → ICU 16:07
PROVIDERS: ADMIT Internal Medicine; ATTEND Internal Medicine
PROC: 5A2204Z Restoration of Cardiac Rhythm, Single (ICD-10-PCS; principal; 2018-01-27)
PROC: B246ZZ4 Ultrasonography of Right and Left Heart, Transesophageal (ICD-10-PCS; 2018-01-27)
DX: I48.0 Paroxysmal atrial fibrillation (principal); R07.9 Chest pain, unspecified; E66.2 Morbid (severe) obesity with alveolar hypoventilation; Z68.43 Body mass index [BMI] 50.0-59.9, adult; L97.929 Non-pressure chronic ulcer of unspecified part of left lower leg with unspecified severity; L97.919 Non-pressure chronic ulcer of unspecified part of right lower leg with unspecified severity; I12.9 Hypertensive chronic kidney disease with stage 1 through stage 4 chronic kidney disease, or unspecified chronic kidney disease; N18.2 Chronic kidney disease, stage 2 (mild); J44.9 Chronic obstructive pulmonary disease, unspecified; E78.00 Pure hypercholesterolemia, unspecified; E78.5 Hyperlipidemia, unspecified; E11.51 Type 2 diabetes mellitus with diabetic peripheral angiopathy without gangrene; I87.2 Venous insufficiency (chronic) (peripheral); D46.9 Myelodysplastic syndrome, unspecified; K44.9 Diaphragmatic hernia without obstruction or gangrene; M81.0 Age-related osteoporosis without current pathological fracture; I08.1 Rheumatic disorders of both mitral and tricuspid valves; M19.91 Primary osteoarthritis, unspecified site; M54.9 Dorsalgia, unspecified; R53.1 Weakness; Z79.01 Long term (current) use of anticoagulants; Z85.820 Personal history of malignant melanoma of skin
CPT/HCPCS: 36415; 71045; 80048; 80053; 80061; 81000; 82962; 83735; 83874; 83880; 84100; 84443; 84484; 85025; 85610; 85730; 87081; 93005; 93041; 93312; 93320; 93325; 94640; 94664; 96365

== ENCOUNTER → 2018-01-31 | Outpatient (CLI) | payer MEDICARE ==
[~2018-01-31] MED LIST changes: +AMIO200T4 PO; +APIX5TAB PO; +MAGN125C PO; +METO-352 PO; +METO200T48 PO
== END ==
LOC: WOUNDCARE 09:03
PROVIDERS: ATTEND Surgery
DX: L97.212 Non-pressure chronic ulcer of right calf with fat layer exposed (principal); L97.222 Non-pressure chronic ulcer of left calf with fat layer exposed; I87.333 Chronic venous hypertension (idiopathic) with ulcer and inflammation of bilateral lower extremity; E11.622 Type 2 diabetes mellitus with other skin ulcer; E66.01 Morbid (severe) obesity due to excess calories; B96.5 Pseudomonas (aeruginosa) (mallei) (pseudomallei) as the cause of diseases classified elsewhere
CPT/HCPCS: 11042; 11045; 87070; 87075; 87077; 87186; 87205

== ENCOUNTER → 2018-02-06 | Outpatient (CLI) | payer MEDICARE | LOC: WOUNDCARE 10:46 | PROVIDERS: ATTEND Orthopaedic Surgery Hand Surgery | DX: L97.212 Non-pressure chronic ulcer of right calf with fat layer exposed (principal); L97.222 Non-pressure chronic ulcer of left calf with fat layer exposed; I87.333 Chronic venous hypertension (idiopathic) with ulcer and inflammation of bilateral lower extremity; E11.622 Type 2 diabetes mellitus with other skin ulcer; E66.01 Morbid (severe) obesity due to excess calories; B96.5 Pseudomonas (aeruginosa) (mallei) (pseudomallei) as the cause of diseases classified elsewhere | CPT/HCPCS: 11042 ==

== ENCOUNTER → 2018-02-20 | Outpatient (CLI) | payer MEDICARE | LOC: WOUNDCARE 10:27 | PROVIDERS: ATTEND Orthopaedic Surgery Hand Surgery | DX: E11.622 Type 2 diabetes mellitus with other skin ulcer (principal); L97.212 Non-pressure chronic ulcer of right calf with fat layer exposed; I87.333 Chronic venous hypertension (idiopathic) with ulcer and inflammation of bilateral lower extremity; E66.01 Morbid (severe) obesity due to excess calories; B96.5 Pseudomonas (aeruginosa) (mallei) (pseudomallei) as the cause of diseases classified elsewhere | CPT/HCPCS: 11042 ==

== ENCOUNTER → 2018-02-27 | Outpatient (CLI) | payer MEDICARE | LOC: WOUNDCARE 10:42 | PROVIDERS: ATTEND Orthopaedic Surgery Hand Surgery | DX: L97.212 Non-pressure chronic ulcer of right calf with fat layer exposed (principal); I87.333 Chronic venous hypertension (idiopathic) with ulcer and inflammation of bilateral lower extremity; E11.622 Type 2 diabetes mellitus with other skin ulcer; E66.01 Morbid (severe) obesity due to excess calories; B96.5 Pseudomonas (aeruginosa) (mallei) (pseudomallei) as the cause of diseases classified elsewhere | CPT/HCPCS: 11042 ==

== ENCOUNTER → 2018-03-06 | Outpatient (CLI) | payer MEDICARE | LOC: WOUNDCARE 10:43 | PROVIDERS: ATTEND Orthopaedic Surgery Hand Surgery | DX: L97.212 Non-pressure chronic ulcer of right calf with fat layer exposed (principal); I87.333 Chronic venous hypertension (idiopathic) with ulcer and inflammation of bilateral lower extremity; E11.622 Type 2 diabetes mellitus with other skin ulcer; E66.01 Morbid (severe) obesity due to excess calories | CPT/HCPCS: 11042 ==

== ENCOUNTER → 2018-03-13 | Outpatient (CLI) | payer MEDICARE | LOC: WOUNDCARE 11:02 | PROVIDERS: ATTEND Orthopaedic Surgery Hand Surgery | DX: E11.622 Type 2 diabetes mellitus with other skin ulcer (principal); L97.212 Non-pressure chronic ulcer of right calf with fat layer exposed; I87.333 Chronic venous hypertension (idiopathic) with ulcer and inflammation of bilateral lower extremity; E66.01 Morbid (severe) obesity due to excess calories | CPT/HCPCS: 15271 ==

== ENCOUNTER → 2018-03-20 | Outpatient (CLI) | payer MEDICARE | LOC: WOUNDCARE 11:01 | PROVIDERS: ATTEND Nurse Practitioner | DX: L97.212 Non-pressure chronic ulcer of right calf with fat layer exposed (principal); I87.333 Chronic venous hypertension (idiopathic) with ulcer and inflammation of bilateral lower extremity; E11.622 Type 2 diabetes mellitus with other skin ulcer; E66.01 Morbid (severe) obesity due to excess calories | CPT/HCPCS: 11042 ==

== ENCOUNTER → 2018-03-27 | Outpatient (CLI) | payer MEDICARE ==
--- NOTE | 2018-03-27 18:41 | Diagnostic Imaging Report ---
EXAMINATION: Digital mammogram bilateral screening with 3D tomosynthesis and computer-aided detection (CAD) system. INDICATION: Screening. This study was compared to the prior exam of 03/10/2014 and 10/26/2011. At this time, there are no current complaints. FINDINGS: Both breasts do seem smaller than noted on the previous study. Correlation with patient's weight loss history will be recommended. The fibroglandular tissue in each breast is heterogeneously dense. This does limit the sensitivity of this exam. There are benign-appearing calcifications scattered throughout both breasts. Overall, there does not appear to have been any adverse change. There is no primary or secondary sign of malignancy noted. IMPRESSION: 1. There is no evidence for malignancy. 2. The patient should have her annual bilateral screening mammogram on schedule in March of 2019. ACR BI-RADS Category 1: Negative. Result letter will be mailed to the patient. Note: At least 10% of breast cancer is not imaged by mammography. Dictated by: Dictated on workstation # [id number]
== END ==
LOC: RAD 10:02
PROVIDERS: ATTEND Internal Medicine
DX: Z12.31 Encounter for screening mammogram for malignant neoplasm of breast (principal)
CPT/HCPCS: 77067

== ENCOUNTER 2018-04-02 13:23 | Outpatient (RCR) | payer MEDICARE, OTHER ==
[2018-01-07 10:17] LABS: BASOPHILS % (AUTO) 1 % (0-10); EOSINOPHILS # (AUTO) 0.1 10^3/uL (0.0-0.3); EOSINOPHILS % (AUTO) 2 % (0-10); HEMATOCRIT 34 % (35-52); HEMOGLOBIN 10.2 G/DL (11.5-16.0); LYMPHOCYTES % (AUTO) 16 % (12-44); MEAN CORPUSCULAR HEMOGLOBIN 29 PG (25-34); MEAN CORPUSCULAR HGB CONC 30 G/DL (32-36); MEAN CORPUSCULAR VOLUME 97 FL (80-99); MONOCYTES # (AUTO) 0.4 X 10^3 (0.0-1.0); MONOCYTES % (AUTO) 7 % (0-12); NEUTROPHILS # (AUTO) 4.5 X 10^3 (1.8-7.8); NEUTROPHILS % (AUTO) 74 % (42-75); PLATELET COUNT 249 10^3/uL (130-400); RED BLOOD COUNT 3.52 10^6/uL (4.35-5.85); WHITE BLOOD COUNT 6.1 10^3/uL (4.3-11.0)
[2018-01-07 10:37] LABS: ALBUMIN 3.3 GM/DL (3.2-4.5); BILIRUBIN,TOTAL 0.4 MG/DL (0.1-1.0); CALCIUM 8.8 MG/DL (8.5-10.1); CREATININE SERUM 0.94 MG/DL (0.60-1.30); POTASSIUM 4.2 MMOL/L (3.6-5.0); TOTAL PROTEIN 6.1 GM/DL (6.4-8.2)
[2018-01-22 13:51] LABS: BASOPHILS % (AUTO) 0 % (0-10); EOSINOPHILS # (AUTO) 0.1 10^3/uL (0.0-0.3); EOSINOPHILS % (AUTO) 2 % (0-10); HEMATOCRIT 37 % (35-52); HEMOGLOBIN 11.1 G/DL (11.5-16.0); LYMPHOCYTES # (AUTO) 0.9 X 10^3 (1.0-4.0); LYMPHOCYTES % (AUTO) 12 % (12-44); MEAN CORPUSCULAR HEMOGLOBIN 29 PG (25-34); MEAN CORPUSCULAR HGB CONC 30 G/DL (32-36); MEAN CORPUSCULAR VOLUME 98 FL (80-99); MEAN PLATELET VOLUME 9.1 FL (7.4-10.4); MONOCYTES # (AUTO) 0.5 X 10^3 (0.0-1.0); MONOCYTES % (AUTO) 7 % (0-12); NEUTROPHILS # (AUTO) 5.8 X 10^3 (1.8-7.8); NEUTROPHILS % (AUTO) 80 % (42-75); PLATELET COUNT 232 10^3/uL (130-400); RED BLOOD COUNT 3.82 10^6/uL (4.35-5.85); RED CELL DISTRIBUTION WIDTH 16.7 % (10.0-14.5); WHITE BLOOD COUNT 7.3 10^3/uL (4.3-11.0)
[2018-02-05 13:38] LABS: BASOPHILS % (AUTO) 0 % (0-10); EOSINOPHILS # (AUTO) 0.1 10^3/uL (0.0-0.3); EOSINOPHILS % (AUTO) 2 % (0-10); HEMATOCRIT 38 % (35-52); HEMOGLOBIN 11.2 G/DL (11.5-16.0); LYMPHOCYTES # (AUTO) 0.8 X 10^3 (1.0-4.0); LYMPHOCYTES % (AUTO) 14 % (12-44); MEAN CORPUSCULAR HEMOGLOBIN 28 PG (25-34); MEAN CORPUSCULAR HGB CONC 30 G/DL (32-36); MEAN CORPUSCULAR VOLUME 96 FL (80-99); MONOCYTES # (AUTO) 0.5 X 10^3 (0.0-1.0); MONOCYTES % (AUTO) 8 % (0-12); NEUTROPHILS # (AUTO) 4.6 X 10^3 (1.8-7.8); NEUTROPHILS % (AUTO) 76 % (42-75); PLATELET COUNT 223 10^3/uL (130-400); RED BLOOD COUNT 3.95 10^6/uL (4.35-5.85); RED CELL DISTRIBUTION WIDTH 16.2 % (10.0-14.5); WHITE BLOOD COUNT 6.1 10^3/uL (4.3-11.0)
[2018-02-19 11:00] LABS: BASOPHILS % (AUTO) 0 % (0-10); EOSINOPHILS # (AUTO) 0.2 10^3/uL (0.0-0.3); EOSINOPHILS % (AUTO) 3 % (0-10); HEMATOCRIT 35 % (35-52); HEMOGLOBIN 10.8 G/DL (11.5-16.0); LYMPHOCYTES # (AUTO) 0.8 X 10^3 (1.0-4.0); LYMPHOCYTES % (AUTO) 17 % (12-44); MEAN CORPUSCULAR HEMOGLOBIN 30 PG (25-34); MEAN CORPUSCULAR HGB CONC 31 G/DL (32-36); MEAN CORPUSCULAR VOLUME 96 FL (80-99); MEAN PLATELET VOLUME 9.1 FL (7.4-10.4); MONOCYTES # (AUTO) 0.4 X 10^3 (0.0-1.0); MONOCYTES % (AUTO) 8 % (0-12); NEUTROPHILS # (AUTO) 3.4 X 10^3 (1.8-7.8); NEUTROPHILS % (AUTO) 71 % (42-75); PLATELET COUNT 201 10^3/uL (130-400); RED BLOOD COUNT 3.65 10^6/uL (4.35-5.85); RED CELL DISTRIBUTION WIDTH 15.5 % (10.0-14.5); WHITE BLOOD COUNT 4.8 10^3/uL (4.3-11.0)
[2018-02-19 11:17] LABS: ALBUMIN 3.8 GM/DL (3.2-4.5); BILIRUBIN,TOTAL 0.6 MG/DL (0.1-1.0); CALCIUM 9.4 MG/DL (8.5-10.1); POTASSIUM 4.2 MMOL/L (3.6-5.0); TOTAL PROTEIN 6.6 GM/DL (6.4-8.2)
[2018-03-19 14:26] LABS: BASOPHILS % (AUTO) 0 % (0-10); EOSINOPHILS # (AUTO) 0.1 10^3/uL (0.0-0.3); EOSINOPHILS % (AUTO) 2 % (0-10); HEMATOCRIT 33 % (35-52); HEMOGLOBIN 10.4 G/DL (11.5-16.0); LYMPHOCYTES # (AUTO) 0.8 X 10^3 (1.0-4.0); LYMPHOCYTES % (AUTO) 17 % (12-44); MEAN CORPUSCULAR HEMOGLOBIN 29 PG (25-34); MEAN CORPUSCULAR HGB CONC 32 G/DL (32-36); MEAN CORPUSCULAR VOLUME 94 FL (80-99); MEAN PLATELET VOLUME 8.9 FL (7.4-10.4); MONOCYTES # (AUTO) 0.5 X 10^3 (0.0-1.0); MONOCYTES % (AUTO) 10 % (0-12); NEUTROPHILS # (AUTO) 3.3 X 10^3 (1.8-7.8); NEUTROPHILS % (AUTO) 71 % (42-75); PLATELET COUNT 206 10^3/uL (130-400); RED BLOOD COUNT 3.53 10^6/uL (4.35-5.85); RED CELL DISTRIBUTION WIDTH 15.5 % (10.0-14.5); WHITE BLOOD COUNT 4.7 10^3/uL (4.3-11.0)
[~2018-04-02 13:23] MED LIST changes: +DARBEPOETIN 25 MCG/ML (CANCER CTR) 1 ML VIAL SC SCH; +DARBEPOETIN 40 MCG/ML (ARANESP) 1 ML VIAL SC SCH
[2018-04-02 13:47] LABS: BASOPHILS % (AUTO) 0 % (0-10); EOSINOPHILS # (AUTO) 0.1 10^3/uL (0.0-0.3); EOSINOPHILS % (AUTO) 2 % (0-10); HEMATOCRIT 32 % (35-52); LYMPHOCYTES # (AUTO) 0.9 X 10^3 (1.0-4.0); LYMPHOCYTES % (AUTO) 18 % (12-44); MEAN CORPUSCULAR HEMOGLOBIN 30 PG (25-34); MEAN CORPUSCULAR HGB CONC 31 G/DL (32-36); MEAN CORPUSCULAR VOLUME 95 FL (80-99); MEAN PLATELET VOLUME 8.6 FL (7.4-10.4); MONOCYTES # (AUTO) 0.4 X 10^3 (0.0-1.0); MONOCYTES % (AUTO) 8 % (0-12); NEUTROPHILS # (AUTO) 3.4 X 10^3 (1.8-7.8); NEUTROPHILS % (AUTO) 72 % (42-75); PLATELET COUNT 177 10^3/uL (130-400); RED BLOOD COUNT 3.39 10^6/uL (4.35-5.85); RED CELL DISTRIBUTION WIDTH 15.5 % (10.0-14.5); WHITE BLOOD COUNT 4.7 10^3/uL (4.3-11.0)
== END 2018-04-07 | disposition home or self-care (01) ==
LOC: ONC 13:23
PROVIDERS: ATTEND Internal Medicine Hematology & Oncology
DX: D50.9 Iron deficiency anemia, unspecified (principal); D63.1 Anemia in chronic kidney disease; N18.3 Chronic kidney disease, stage 3 (moderate); Z85.820 Personal history of malignant melanoma of skin; E11.9 Type 2 diabetes mellitus without complications; I10 Essential (primary) hypertension; E78.2 Mixed hyperlipidemia; Z82.49 Family history of ischemic heart disease and other diseases of the circulatory system; Z79.84 Long term (current) use of oral hypoglycemic drugs; Z79.899 Other long term (current) drug therapy
CPT/HCPCS: 36415; 80053; 82728; 83883; 85025; 96372

== ENCOUNTER → 2018-04-03 | Outpatient (CLI) | payer MEDICARE ==
[~2018-04-03] MED LIST changes: -DARBEPOETIN 25 MCG/ML (CANCER CTR) 1 ML VIAL SC SCH; -DARBEPOETIN 40 MCG/ML (ARANESP) 1 ML VIAL SC SCH
== END ==
LOC: WOUNDCARE 10:09
PROVIDERS: ATTEND Nurse Practitioner
DX: L97.212 Non-pressure chronic ulcer of right calf with fat layer exposed (principal); I87.331 Chronic venous hypertension (idiopathic) with ulcer and inflammation of right lower extremity; E11.622 Type 2 diabetes mellitus with other skin ulcer; E66.01 Morbid (severe) obesity due to excess calories
CPT/HCPCS: 87070; 87075; 87077; 87186; 87205

== ENCOUNTER → 2018-04-03 | Outpatient (CLI) | payer MEDICARE | LOC: WOUNDCARE 10:42 | PROVIDERS: ATTEND Surgery | DX: L97.212 Non-pressure chronic ulcer of right calf with fat layer exposed (principal); I87.331 Chronic venous hypertension (idiopathic) with ulcer and inflammation of right lower extremity; E11.622 Type 2 diabetes mellitus with other skin ulcer; E66.01 Morbid (severe) obesity due to excess calories | CPT/HCPCS: 15271 ==

== ENCOUNTER → 2018-04-10 | Outpatient (CLI) | payer MEDICARE | LOC: WOUNDCARE 11:04 | PROVIDERS: ATTEND Nurse Practitioner | DX: L97.212 Non-pressure chronic ulcer of right calf with fat layer exposed (principal); I87.331 Chronic venous hypertension (idiopathic) with ulcer and inflammation of right lower extremity; E11.622 Type 2 diabetes mellitus with other skin ulcer; E66.01 Morbid (severe) obesity due to excess calories | CPT/HCPCS: 11042 ==

== ENCOUNTER → 2018-04-17 | Outpatient (CLI) | payer MEDICARE | LOC: WOUNDCARE 11:06 | PROVIDERS: ATTEND Nurse Practitioner | DX: E11.622 Type 2 diabetes mellitus with other skin ulcer (principal); L97.212 Non-pressure chronic ulcer of right calf with fat layer exposed; I87.331 Chronic venous hypertension (idiopathic) with ulcer and inflammation of right lower extremity; E66.01 Morbid (severe) obesity due to excess calories | CPT/HCPCS: 11042 ==

== ENCOUNTER → 2018-04-24 | Outpatient (CLI) | payer MEDICARE | LOC: WOUNDCARE 10:26 | PROVIDERS: ATTEND Nurse Practitioner | DX: L97.212 Non-pressure chronic ulcer of right calf with fat layer exposed (principal); I87.331 Chronic venous hypertension (idiopathic) with ulcer and inflammation of right lower extremity; E11.622 Type 2 diabetes mellitus with other skin ulcer; E66.01 Morbid (severe) obesity due to excess calories | CPT/HCPCS: 11042 ==

== ENCOUNTER → 2018-04-30 | Outpatient (CLI) | payer MEDICARE | LOC: WOUNDCARE 13:08 | PROVIDERS: ATTEND Surgery | DX: E11.622 Type 2 diabetes mellitus with other skin ulcer (principal); I87.331 Chronic venous hypertension (idiopathic) with ulcer and inflammation of right lower extremity; L97.212 Non-pressure chronic ulcer of right calf with fat layer exposed; E66.01 Morbid (severe) obesity due to excess calories; Z68.43 Body mass index [BMI] 50.0-59.9, adult | CPT/HCPCS: 11042 ==

== ENCOUNTER → 2018-05-08 | Outpatient (CLI) | payer MEDICARE | LOC: WOUNDCARE 11:03 | PROVIDERS: ATTEND Nurse Practitioner | DX: E11.622 Type 2 diabetes mellitus with other skin ulcer (principal); L97.212 Non-pressure chronic ulcer of right calf with fat layer exposed; I87.331 Chronic venous hypertension (idiopathic) with ulcer and inflammation of right lower extremity; E66.01 Morbid (severe) obesity due to excess calories | CPT/HCPCS: 11042 ==

== ENCOUNTER → 2018-05-15 | Outpatient (CLI) | payer MEDICARE | LOC: WOUNDCARE 10:29 | PROVIDERS: ATTEND Nurse Practitioner | DX: E11.622 Type 2 diabetes mellitus with other skin ulcer (principal); L97.212 Non-pressure chronic ulcer of right calf with fat layer exposed; I87.331 Chronic venous hypertension (idiopathic) with ulcer and inflammation of right lower extremity; E66.01 Morbid (severe) obesity due to excess calories | CPT/HCPCS: 11042 ==

== ENCOUNTER → 2018-05-22 | Outpatient (CLI) | payer MEDICARE | LOC: WOUNDCARE 11:04 | PROVIDERS: ATTEND Nurse Practitioner | DX: E11.622 Type 2 diabetes mellitus with other skin ulcer (principal); L97.212 Non-pressure chronic ulcer of right calf with fat layer exposed; I87.331 Chronic venous hypertension (idiopathic) with ulcer and inflammation of right lower extremity; E66.01 Morbid (severe) obesity due to excess calories | CPT/HCPCS: 15271 ==

== ENCOUNTER → 2018-05-29 | Outpatient (CLI) | payer MEDICARE | LOC: WOUNDCARE 10:54 | PROVIDERS: ATTEND Nurse Practitioner | DX: E11.622 Type 2 diabetes mellitus with other skin ulcer (principal); L97.212 Non-pressure chronic ulcer of right calf with fat layer exposed; I87.331 Chronic venous hypertension (idiopathic) with ulcer and inflammation of right lower extremity; E66.01 Morbid (severe) obesity due to excess calories | CPT/HCPCS: 87070; 87075; 87205 ==

== ENCOUNTER → 2018-06-05 | Outpatient (CLI) | payer MEDICARE | LOC: WOUNDCARE 11:01 | PROVIDERS: ATTEND Surgery | DX: L97.212 Non-pressure chronic ulcer of right calf with fat layer exposed (principal); I87.331 Chronic venous hypertension (idiopathic) with ulcer and inflammation of right lower extremity; E11.622 Type 2 diabetes mellitus with other skin ulcer; E66.01 Morbid (severe) obesity due to excess calories | CPT/HCPCS: 15275 ==

== ENCOUNTER → 2018-06-12 | Outpatient (CLI) | payer MEDICARE | LOC: WOUNDCARE 11:02 | PROVIDERS: ATTEND Nurse Practitioner | DX: L97.212 Non-pressure chronic ulcer of right calf with fat layer exposed (principal); I87.331 Chronic venous hypertension (idiopathic) with ulcer and inflammation of right lower extremity; E11.622 Type 2 diabetes mellitus with other skin ulcer; E66.01 Morbid (severe) obesity due to excess calories | CPT/HCPCS: 11042 ==

== ENCOUNTER 2018-06-18 13:25 | Outpatient (RCR) | payer MEDICARE ==
[2018-04-16 13:54] LABS: BASOPHILS % (AUTO) 0 % (0-10); EOSINOPHILS # (AUTO) 0.1 10^3/uL (0.0-0.3); EOSINOPHILS % (AUTO) 2 % (0-10); HEMATOCRIT 32 % (35-52); HEMOGLOBIN 10.2 G/DL (11.5-16.0); LYMPHOCYTES % (AUTO) 19 % (12-44); MEAN CORPUSCULAR HEMOGLOBIN 30 PG (25-34); MEAN CORPUSCULAR HGB CONC 32 G/DL (32-36); MEAN CORPUSCULAR VOLUME 94 FL (80-99); MEAN PLATELET VOLUME 9.2 FL (7.4-10.4); MONOCYTES # (AUTO) 0.5 X 10^3 (0.0-1.0); MONOCYTES % (AUTO) 10 % (0-12); NEUTROPHILS # (AUTO) 3.7 X 10^3 (1.8-7.8); NEUTROPHILS % (AUTO) 69 % (42-75); PLATELET COUNT 196 10^3/uL (130-400); RED CELL DISTRIBUTION WIDTH 15.9 % (10.0-14.5); WHITE BLOOD COUNT 5.4 10^3/uL (4.3-11.0)
[2018-04-16 14:13] LABS: ALBUMIN 4.1 GM/DL (3.2-4.5); BILIRUBIN,TOTAL 0.7 MG/DL (0.1-1.0); CREATININE SERUM 1.26 MG/DL (0.60-1.30); POTASSIUM 4.1 MMOL/L (3.6-5.0)
[2018-04-30 14:51] LABS: BASOPHILS % (AUTO) 0 % (0-10); EOSINOPHILS # (AUTO) 0.1 10^3/uL (0.0-0.3); EOSINOPHILS % (AUTO) 1 % (0-10); HEMATOCRIT 32 % (35-52); LYMPHOCYTES % (AUTO) 18 % (12-44); MEAN CORPUSCULAR HEMOGLOBIN 30 PG (25-34); MEAN CORPUSCULAR HGB CONC 31 G/DL (32-36); MEAN CORPUSCULAR VOLUME 95 FL (80-99); MONOCYTES # (AUTO) 0.6 X 10^3 (0.0-1.0); MONOCYTES % (AUTO) 10 % (0-12); NEUTROPHILS # (AUTO) 3.9 X 10^3 (1.8-7.8); NEUTROPHILS % (AUTO) 70 % (42-75); PLATELET COUNT 195 10^3/uL (130-400); RED CELL DISTRIBUTION WIDTH 15.7 % (10.0-14.5); WHITE BLOOD COUNT 5.6 10^3/uL (4.3-11.0)
[2018-05-14 13:41] LABS: BASOPHILS % (AUTO) 1 % (0-10); EOSINOPHILS # (AUTO) 0.1 10^3/uL (0.0-0.3); EOSINOPHILS % (AUTO) 2 % (0-10); HEMATOCRIT 32 % (35-52); HEMOGLOBIN 9.8 G/DL (11.5-16.0); LYMPHOCYTES # (AUTO) 1.2 X 10^3 (1.0-4.0); LYMPHOCYTES % (AUTO) 22 % (12-44); MEAN CORPUSCULAR HEMOGLOBIN 30 PG (25-34); MEAN CORPUSCULAR HGB CONC 31 G/DL (32-36); MEAN CORPUSCULAR VOLUME 96 FL (80-99); MEAN PLATELET VOLUME 8.9 FL (7.4-10.4); MONOCYTES # (AUTO) 0.5 X 10^3 (0.0-1.0); MONOCYTES % (AUTO) 10 % (0-12); NEUTROPHILS # (AUTO) 3.4 X 10^3 (1.8-7.8); NEUTROPHILS % (AUTO) 65 % (42-75); PLATELET COUNT 185 10^3/uL (130-400); RED CELL DISTRIBUTION WIDTH 15.4 % (10.0-14.5); WHITE BLOOD COUNT 5.2 10^3/uL (4.3-11.0)
[2018-05-28 13:36] LABS: BASOPHILS % (AUTO) 0 % (0-10); EOSINOPHILS # (AUTO) 0.2 10^3/uL (0.0-0.3); EOSINOPHILS % (AUTO) 3 % (0-10); HEMATOCRIT 31 % (35-52); HEMOGLOBIN 9.5 G/DL (11.5-16.0); LYMPHOCYTES % (AUTO) 20 % (12-44); MEAN CORPUSCULAR HEMOGLOBIN 30 PG (25-34); MEAN CORPUSCULAR HGB CONC 31 G/DL (32-36); MEAN CORPUSCULAR VOLUME 97 FL (80-99); MEAN PLATELET VOLUME 8.7 FL (7.4-10.4); MONOCYTES # (AUTO) 0.5 X 10^3 (0.0-1.0); MONOCYTES % (AUTO) 9 % (0-12); NEUTROPHILS # (AUTO) 3.3 X 10^3 (1.8-7.8); NEUTROPHILS % (AUTO) 67 % (42-75); PLATELET COUNT 175 10^3/uL (130-400); RED CELL DISTRIBUTION WIDTH 14.1 % (10.0-14.5)
[2018-06-11 13:03] LABS: BASOPHILS % (AUTO) 0 % (0-10); EOSINOPHILS # (AUTO) 0.1 10^3/uL (0.0-0.3); EOSINOPHILS % (AUTO) 1 % (0-10); HEMATOCRIT 31 % (35-52); HEMOGLOBIN 9.6 G/DL (11.5-16.0); LYMPHOCYTES # (AUTO) 0.6 X 10^3 (1.0-4.0); LYMPHOCYTES % (AUTO) 10 % (12-44); MEAN CORPUSCULAR HEMOGLOBIN 30 PG (25-34); MEAN CORPUSCULAR HGB CONC 31 G/DL (32-36); MEAN CORPUSCULAR VOLUME 98 FL (80-99); MEAN PLATELET VOLUME 8.7 FL (7.4-10.4); MONOCYTES # (AUTO) 0.4 X 10^3 (0.0-1.0); MONOCYTES % (AUTO) 7 % (0-12); NEUTROPHILS # (AUTO) 4.7 X 10^3 (1.8-7.8); NEUTROPHILS % (AUTO) 82 % (42-75); PLATELET COUNT 198 10^3/uL (130-400); RED CELL DISTRIBUTION WIDTH 14.1 % (10.0-14.5); WHITE BLOOD COUNT 5.7 10^3/uL (4.3-11.0)
[2018-06-11 13:20] LABS: ALBUMIN 3.9 GM/DL (3.2-4.5); BILIRUBIN,TOTAL 0.5 MG/DL (0.1-1.0); CALCIUM 8.9 MG/DL (8.5-10.1); CREATININE SERUM 1.17 MG/DL (0.60-1.30); POTASSIUM 4.4 MMOL/L (3.6-5.0); TOTAL PROTEIN 6.6 GM/DL (6.4-8.2)
[~2018-06-18 13:25] MED LIST changes: -CYAN100T PO; +CYAN100T3 PO; +DARBEPOETIN 40 MCG/ML (ARANESP) 1 ML VIAL SC SCH; +FERRIC CARBOXYMALTOSE (CANCER) 750 MG in NS (IVPB) CANCER CENTER 250 ML IV SCH
[2018-06-23] MEDS ORDERED: DOXY100C2 PO (10:58)
[2018-06-23] MEDS ORDERED: METO-370 PO (10:58)
[2018-06-23] MEDS ORDERED: AMIO200T4 PO (10:58)
[2018-06-23] MEDS ORDERED: FERR750V IV (11:09)
[2018-06-23] MEDS ORDERED: DARB40VI IV (11:09)
== END 2018-07-15 | disposition home or self-care (01) ==
LOC: ONC 13:25
PROVIDERS: ATTEND Internal Medicine Hematology & Oncology
DX: D50.9 Iron deficiency anemia, unspecified (principal); D63.1 Anemia in chronic kidney disease; N18.3 Chronic kidney disease, stage 3 (moderate); Z85.820 Personal history of malignant melanoma of skin; I10 Essential (primary) hypertension; E78.2 Mixed hyperlipidemia; Z82.49 Family history of ischemic heart disease and other diseases of the circulatory system; Z79.84 Long term (current) use of oral hypoglycemic drugs; Z79.899 Other long term (current) drug therapy; E11.622 Type 2 diabetes mellitus with other skin ulcer; I87.331 Chronic venous hypertension (idiopathic) with ulcer and inflammation of right lower extremity; L97.212 Non-pressure chronic ulcer of right calf with fat layer exposed; E66.01 Morbid (severe) obesity due to excess calories; Z68.43 Body mass index [BMI] 50.0-59.9, adult
CPT/HCPCS: 11042; 36415; 80053; 82728; 85025; 96365; 96372

== ENCOUNTER → 2018-06-19 | Outpatient (CLI) | payer MEDICARE ==
[~2018-06-19] MED LIST changes: +CYAN100T PO; -CYAN100T3 PO; +DARB40VI IV; -DARBEPOETIN 40 MCG/ML (ARANESP) 1 ML VIAL SC SCH; +DOXY100C2 PO; +FERR750V IV; -FERRIC CARBOXYMALTOSE (CANCER) 750 MG in NS (IVPB) CANCER CENTER 250 ML IV SCH; +METO-370 PO
== END ==
LOC: WOUNDCARE 11:04
PROVIDERS: ATTEND Nurse Practitioner
DX: L97.212 Non-pressure chronic ulcer of right calf with fat layer exposed (principal); I87.331 Chronic venous hypertension (idiopathic) with ulcer and inflammation of right lower extremity; E11.622 Type 2 diabetes mellitus with other skin ulcer; E66.01 Morbid (severe) obesity due to excess calories
CPT/HCPCS: 99213

== ENCOUNTER 2018-06-22 12:57 | Inpatient (IN) | payer MEDICARE ==
[~2018-06-22] VITALS: Ht 162.6 cm; Wt 159.7 kg
[~2018-06-22 12:57] MED LIST changes: -DARB40VI IV; -DOXY100C2 PO; -FERR750V IV; -METO-370 PO
[2018-06-22] MEDS ORDERED: cefTRIAXone FOR IV USE 1,000 MG in WATER (STERILE) FOR INJECTION 10 ML IV ONE (13:15)
--- NOTE | 2018-06-22 13:15 | ED Fall/Injury ---
General Stated Complaint: WEAKNESS Source: patient, EMS Exam Limitations: no limitations History of Present Illness Date Seen by Provider: Jun 22, 2018 Time Seen by Provider: 13:02 Initial Comments Patient presents to ER by EMS with chief complaint that she was at home getting up out of her chair when she said her legs felt a little weak under her and she fell down. She denies striking her head or loss of consciousness. She usually uses a walker to get around. She did spend several months in rehabilitation and then via [facility] for her general debility. She has chronic venous stasis lateral lower extremities. She is followed by Dr. Whittington for her atrial fibrillation and is on Eliquis. EMS reports she was down for most about 30 minutes before she could call and get help. Patient denies dysuria but she does have an occasional cough. No known fevers or chills. She says for the past day and a half she just felt tired and weaker than usual. She has also noted that she is gaining some weight since discharging home from rehabilitation. She got home 3 months ago. Wound care doctor has her on doxycycline for the past 15-20 days. Allergies and Home Medications Allergies Coded Allergies: NSAIDS (Non-Steroidal Anti-Inflamma (Verified Allergy, Unknown, 10/13/15) celecoxib (Unverified Allergy, Unknown, 12/05/17) penicillin G (Verified Allergy, Unknown, HAS RECEIVED ANCEF W/O ISSUE, ) Home Medications Acetaminophen 500 Mg Tablet, 1,000 MG PO Q4H PRN for PAIN-MILD, (Reported) Albuterol Sulfate 18 Gm Hfa.aer.ad, 2 PUFF INH Q4H PRN for SHORTNESS OF BREATH, (Reported) Amiodarone HCl 200 Mg Tablet, 200 MG PO UD Take 400 mg twice daily for one week then 200 mg twice daily for 4 weeks then 200 mg daily Prescribed by: ARIANA WHITTINGTON on 01/28/18 0748 Apixaban 5 Mg Tablet, 5 MG PO BID, (Reported) Ascorbate Calcium 500 Mg Tablet, 500 MG PO DAILY, (Reported) Atorvastatin Calcium 40 Mg Tablet, 40 MG PO HS, (Reported) Calcium Carbonate 600 Mg Tablet, 600 MG PO DAILY, (Reported) Cholecalciferol (Vitamin D3) 2,000 Unit Capsule, 2,000 UNIT PO DAILY, (Reported) Cyanocobalamin 100 Mcg Tablet, 200 MCG PO DAILY, (Reported) Fluticasone/Salmeterol 1 Each Blst.w.dev, 1 PUFF INH BID, (Reported) Folic Acid 1 Mg Tablet, 1 MG PO DAILY, (Reported) Furosemide 40 Mg Tablet, 40 MG PO DAILY, (Reported) Magnesium Citrate 125 Mg Capsule, 250 MG PO HS, (Reported) TAKES 2 (125MG) CAPSULES Metoprolol Succinate 50 Mg Tab.er.24h, 50 MG PO DAILY Prescribed by: ARIANA WHITTINGTON on 01/28/18 0748 Montelukast Sodium 10 Mg Tablet, 10 MG PO HS, (Reported) Potassium Chloride 10 Meq Tablet.er, 10 MEQ PO DAILY, (Reported) Tramadol HCl 50 Mg Tablet, 50-100 MG PO Q6H PRN for PAIN-MODERATE, (Reported) Patient Home Medication List Home Medication List Reviewed: Yes Review of Systems Review of Systems Constitutional: No chills, No diaphoresis; malaise, weakness Eyes: Denies Blindness, Denies Blurred Vision Ears, Nose, Mouth, Throat: denies ear pain, denies ear discharge Respiratory: cough; No short of breath Cardiovascular: No chest pain, No edema, No palpitations Gastrointestinal: No abdominal pain, No constipation, No diarrhea, No nausea Genitourinary: No discharge, No dysuria Musculoskeletal: No back pain, No joint pain Past Obkmnkl-Lvxwyu-Muizbp Hx Patient Social History Alcohol Use: Denies Use Recreational Drug Use: No Smoking Status: Never a Smoker 2nd Hand Smoke Exposure: No Recent Hopitalizations: No Immunizations Up To Date Tetanus Booster (TDap): Unknown Date of Influenza Vaccine: Dec 24, 2017 Seasonal Allergies Seasonal Allergies: Yes Past Medical History Surgeries: Yes Respiratory: Yes Asthma, COPD Currently Using CPAP: Yes Currently Using BIPAP: No Cardiac: Yes Atrial Fibrillation, High Cholesterol, Hypertension Neurological: No Female Reproductive Disorders: Denies Sexually Transmitted Disease: No HIV/AIDS: No Genitourinary: Yes Bladder Infection Gastrointestinal: Yes Hiatal Hernia Musculoskeletal: Yes Osteoporosis, Arthritis, Chronic Back Pain Endocrine: Yes Diabetes, Non-Insulin dep HEENT: No Hearing Impairment: Denies Cancer: Yes (melanoma 5 yrs ago on shoulder) Did You Recieve Any Treatments: No Psychosocial: No Integumentary: Yes (VENOUS STASIS ULCERS) Blood Disorders: No Adverse Reaction/Blood Tranf: No Family Medical History Patient reports no known family medical history. Heart Disease a-fib in siblings Physical Exam Vital Signs Vital Signs - First Documented 06/22/18 13:00 Temp 99.8 Pulse 92 Resp 18 B/P (MAP) 155/78 (103) Pulse Ox 94 O2 Delivery Nasal Cannula O2 Flow Rate 2.00 Capillary Refill : Height, Weight, BMI Height: 5'5.00" Weight: 326lbs. 5.0oz. 148.849458jd; 54.5 BMI Method:Stated General Appearance: mild distress, obese HEENT: PERRL/EOMI, normal ENT inspection, TMs normal, pharynx normal, other (. Atraumatic, negative for hemotympanum or Sahu sign or raccoon eyes) Neck: full range of motion, supple, normal inspection Cardiovascular: normal peripheral pulses, regular rate, rhythm Respiratory: no respiratory distress, no accessory muscle use, decreased breath sounds, wheezing (mild) Peripheral Pulses: 2+ Radial Pulses (R), 2+ Radial Pulses (L) Gastrointestinal: normal bowel sounds, non tender, soft Neurologic/Psychiatric: alert, oriented x 3 Skin: other (right lower extremity erythema and mild swelling all the way up to the pelvis. Wraps bilateral upper to mid calves.) Jorgito Coma Score Best Eye Response: (4) Open Spontaneously Best Verbal Response: (5) Oriented Best Motor Response: (6) Obeys Commands [place] Total: 15 Progress/Results/Core Measures Results/Orders Lab Results Laboratory Tests Test 06/22/18 13:05 06/22/18 13:30 Range/Units White Blood Count 20.1 H 4.3-11.0 10^3/uL Red Blood Count 3.68 L 4.35-5.85 10^6/uL Hemoglobin 11.1 L 11.5-16.0 G/DL Hematocrit 35 35-52 % Mean Corpuscular Volume 95 80-99 FL Mean Corpuscular Hemoglobin 30 25-34 PG Mean Corpuscular Hemoglobin Concent 32 32-36 G/DL Red Cell Distribution Width 14.7 H 10.0-14.5 % Platelet Count 174 130-400 10^3/uL Mean Platelet Volume 9.3 7.4-10.4 FL Neutrophils (%) (Auto) 94 H 42-75 % Lymphocytes (%) (Auto) 2 L 12-44 % Monocytes (%) (Auto) 4 0-12 % Eosinophils (%) (Auto) 0 0-10 % Basophils (%) (Auto) 0 0-10 % Neutrophils # (Auto) 18.8 H 1.8-7.8 X 10^3 Lymphocytes # (Auto) 0.4 L 1.0-4.0 X 10^3 Monocytes # (Auto) 0.8 0.0-1.0 X 10^3 Eosinophils # (Auto) 0.0 0.0-0.3 10^3/uL Basophils # (Auto) 0.0 0.0-0.1 10^3/uL Neutrophils % (Manual) 86 % Monocytes % (Manual) 4 % Band Neutrophils 10 % Toxic Granulation 1+ Blood Morphology Comment NORMAL Prothrombin Time 26.1 H 12.2-14.7 SEC INR Comment 2.3 H 0.8-1.4 Activated Partial Thromboplast Time 39 H 24-35 SEC Sodium Level 141 135-145 MMOL/L Potassium Level 4.0 3.6-5.0 MMOL/L Chloride Level 105 98-107 MMOL/L Carbon Dioxide Level 22 21-32 MMOL/L Anion Gap 14 5-14 MMOL/L Blood Urea Nitrogen 18 7-18 MG/DL Creatinine 1.17 0.60-1.30 MG/DL Estimat Glomerular Filtration Rate 45 BUN/Creatinine Ratio 15 Glucose Level 117 H 70-105 MG/DL Lactic Acid Level 2.45 *H 0.50-2.00 MMOL/L Calcium Level 9.5 8.5-10.1 MG/DL Corrected Calcium 9.7 8.5-10.1 MG/DL Total Bilirubin 0.9 0.1-1.0 MG/DL Aspartate Amino Transf (AST/SGOT) 48 H 5-34 U/L Alanine Aminotransferase (ALT/SGPT) 34 0-55 U/L Alkaline Phosphatase 97 40-136 U/L Total Creatine Kinase 719 H 29-168 U/L B-Type Natriuretic Peptide 1664.0 H <100.0 PG/ML Total Protein 6.9 6.4-8.2 GM/DL Albumin 3.7 3.2-4.5 GM/DL Urine Color YELLOW Urine Clarity SLIGHTLY CLOUDY Urine pH 5 5-9 Urine Specific Orient 1.020 1.016-1.022 Urine Protein 3+ H NEGATIVE Urine Glucose (UA) NEGATIVE NEGATIVE Urine Ketones NEGATIVE NEGATIVE Urine Nitrite NEGATIVE NEGATIVE Urine Bilirubin NEGATIVE NEGATIVE Urine Urobilinogen NORMAL NORMAL MG/DL Urine Leukocyte Esterase 1+ H NEGATIVE Urine RBC (Auto) 5+ H NEGATIVE Urine RBC 10-25 H /HPF Urine WBC 2-5 /HPF Urine Crystals PRESENT H /LPF Urine Amorphous Sediment MOD DAISHA URATES H /LPF Urine Bacteria LARGE H /HPF Urine Casts NONE /LPF Urine Mucus SMALL H /LPF Urine Culture Indicated NO Micro Results Microbiology 06/22/18 Influenza Types A,B Antigen (ASHOK) - Final, Complete My Orders Orders - TEZ PURI Cbc With Automated Diff (06/22/18 13:08) Comprehensive Metabolic Panel (06/22/18 13:08) Blood Culture (06/22/18 13:08) Sputum Culture (06/22/18 13:08) Urinalysis (06/22/18 13:08) Urine Culture (06/22/18 13:08) Protime With Inr (06/22/18 13:08) Partial Thromboplastin Time (06/22/18 13:08) Chest 1 View, Ap/Pa Only (06/22/18 13:08) Saline Lock/Iv-Start (06/22/18 13:08) Saline Lock/Iv-Start (06/22/18 13:08) Vital Signs Adult Sepsis Patie Q15M (06/22/18 13:08) O2 (06/22/18 13:08) Remove Rings In Anticipation O (06/22/18 13:08) Lactic Acid Analyzer (06/22/18 13:08) Influenza A And B Antigens (06/22/18 13:08) Ns Iv 1000 Ml (Sodium Chloride 0.9%) (06/22/18 13:08) Ceftriaxone For Iv Use (Rocephin For I (06/22/18 13:15) Ct Head/Cervical Spine Wo (06/22/18 13:08) Creatine Kinase (06/22/18 13:12) BNP (06/22/18 13:15) Cefepime Injection (Maxipime Injection) (06/22/18 13:30) Manual Differential (06/22/18 13:05) Vancomycin Injection (Vancomycin Injecti (06/22/18 14:47) Catheter(Urinary) Insert & Ass 03,15 (06/22/18 14:49) Medications Given in ED Current Medications Medications Dose Ordered Sig/Cande Route Start Time Stop Time Status Last Admin Dose Admin Cefepime HCl 2000 mg/Sterile Water 20 ml @ 240 mls/hr ONCE ONCE IV 06/22/18 13:30 06/22/18 13:34 DC 06/22/18 14:03 240 MLS/HR Vital Signs/I&O 06/22/18 06/22/18 13:00 13:00 Temp 99.8 Pulse 92 Resp 18 B/P (MAP) 155/78 (103) Pulse Ox 94 99 O2 Delivery Nasal Cannula O2 Flow Rate 2.00 Progress Progress Note : Time: 14:56 Progress Note The patient has declined to do the CT scan of her head. We will do neuro checks for 12 hours while she's here. Plan to give her vancomycin and cefepime for her cellulitis of the right lower extremity. While her BMP is mildly elevated above her 1200 seen in the past and she does have a cough when treat her sepsis and elevated lactate infection with fluids with an ideal body weight of 197 pounds for a 20 mL/kg bolus of 1800 cc. While transferring to the commode the patient had some desatted down to an 89% so we put her on 2 L nasal cannula. We'll give her a DuoNeb as well. Diagnostic Imaging Diagonstic Imaging: Xray Plain Films/CT/US/NM/MRI: chest (1v) Comments No infiltrates. Mild pulmonary congestion. Reviewed: Reviewed by Me Focused Exam Lactate Level 06/22/18 13:05: Lactic Acid Level 2.45*H Lactic Acid Level Laboratory Tests Test 06/22/18 13:05 Lactic Acid Level 2.45 MMOL/L (0.50-2.00) *H Departure Communication (Admissions) Time/Spoke to Admitting Phy: 14:45 Discussed case lab imaging findings with Dr. Golden she agrees with antibiotic selection. We discussed the chest x-ray appearance and her mildly elevated BNP as we give her IV fluids. Impression Primary Impression: Cellulitis Qualified Codes: L03.115 - Cellulitis of right lower limb Additional Impressions: Sepsis Qualified Codes: A41.9 - Sepsis, unspecified organism Fall Qualified Codes: W19.XXXA - Unspecified fall, initial encounter Rhabdomyolysis Qualified Codes: T79.6XXA - Traumatic ischemia of muscle, initial encounter Disposition: 09 ADMITTED INPATIENT Condition: Stable Admissions Decision to Admit Reason: Admit from ER (General) Decision to Admit/Date: Jun 22, 2018 Time/Decision to Admit Time: 14:17 Departure-Patient Inst. Referrals: JOHN MCCARTNEY MD (PCP/Family) Primary Care Physician TEZ PURI Jun 22, 2018 13:15
[2018-06-22 13:23] LABS: BASOPHILS % (AUTO) 0 % (0-10); EOSINOPHILS % (AUTO) 0 % (0-10); HEMATOCRIT 35 % (35-52); HEMOGLOBIN 11.1 G/DL (11.5-16.0); LYMPHOCYTES # (AUTO) 0.4 X 10^3 (1.0-4.0); LYMPHOCYTES % (AUTO) 2 % (12-44); MEAN CORPUSCULAR HEMOGLOBIN 30 PG (25-34); MEAN CORPUSCULAR HGB CONC 32 G/DL (32-36); MEAN CORPUSCULAR VOLUME 95 FL (80-99); MEAN PLATELET VOLUME 9.3 FL (7.4-10.4); MONOCYTES # (AUTO) 0.8 X 10^3 (0.0-1.0); MONOCYTES % (AUTO) 4 % (0-12); NEUTROPHILS # (AUTO) 18.8 X 10^3 (1.8-7.8); NEUTROPHILS % (AUTO) 94 % (42-75); PLATELET COUNT 174 10^3/uL (130-400); RED CELL DISTRIBUTION WIDTH 14.7 % (10.0-14.5); WHITE BLOOD COUNT 20.1 10^3/uL (4.3-11.0)
[2018-06-22] MEDS ORDERED: CEFEPIME INJECTION 2,000 MG in WATER (STERILE) FOR INJECTION 20 ML IV ONE (13:30)
[2018-06-22 13:35] LABS: INR 2.3 (0.8-1.4); PROTHROMBIN TIME PATIENT 26.1 SEC (12.2-14.7)
[2018-06-22] MEDS: NS IV 1000 ML 1,000 ML IV SCH ×6 (13:40→20:56)
[2018-06-22 13:44] LABS: BILIRUBIN,URINE NEGATIVE (NEGATIVE); CLARITY,URINE SLIGHTLY CLOUDY; COLOR,URINE YELLOW; GLUCOSE, URINE (UA) NEGATIVE (NEGATIVE); KETONES,URINE NEGATIVE (NEGATIVE); LEUKOCYTE ESTERASE ,URINE 1+ (NEGATIVE); NITRITE,URINE NEGATIVE (NEGATIVE); PH,URINE 5 (5-9); PROTEIN,URINE 3+ (NEGATIVE); UROBILINOGEN,URINE NORMAL (NORMAL)
[2018-06-22 13:45] LABS: ALBUMIN 3.7 GM/DL (3.2-4.5); BILIRUBIN,TOTAL 0.9 MG/DL (0.1-1.0); CALCIUM 9.5 MG/DL (8.5-10.1); CREATININE SERUM 1.17 MG/DL (0.60-1.30); TOTAL PROTEIN 6.9 GM/DL (6.4-8.2)
[2018-06-22 13:49] LABS: BAND NEUTROPHILS 10 %; MONOCYTES % (MANUAL) 4 %; NEUTROPHILS % (MANUAL) 86 %; RBC MORPH NORMAL
[2018-06-22 13:50] LABS: TOXIC GRANULATION/VACUOLAZATIO 1+
[2018-06-22 13:52] LABS: BACTERIA,URINE LARGE /HPF
[2018-06-22 13:53] LABS: AMORPHOUS SEDIMENT,UR MOD AMOR URATES /LPF
--- NOTE | 2018-06-22 14:25 | NUR ---
PT ATTEMPT TO GET UP IN W/C TO GO TO CT, PT IS WEAK AND UNABLE TO TOLERATE TRIP PT STATES ONLY SLIPPED OUT OF RECLINER DID NOT HIT HEAD
--- NOTE | 2018-06-22 14:45 | Diagnostic Imaging Report ---
INDICATION: Slid to floor from chair. TECHNIQUE: Single view chest 2:08 PM. CORRELATION STUDY: 01/28/2018 FINDINGS: Heart size enlarged. Mediastinum prominent. Vasculature slightly prominent but less severe from prior study. Lung young are limited in evaluation, however appear to be generally clear without significant infiltrate. Advanced degenerative change visualized of bilateral shoulders. IMPRESSION: 1. Rather pronounced severity cardiac enlargement with borderline vasculature. Dictated by: Dictated on workstation # [id number]
[2018-06-22] MEDS ORDERED: VANCOMYCIN INJECTION 1,000 MG in NS (IVPB) 250 ML IV STA (14:47)
--- NOTE | 2018-06-22 16:15 | NUR ---
ARNOL DIAZ admitted to room 406-1, with an admitting diagnosis of cellulitis right leg, on 06/22/18 from ed via BED, accompanied by STAFF AND SON. ARNOL DIAZ introduced to surroundings, call light, bed controls, phone, TV, temperature control, lights, meal times, smoking policy, visitor policy, side rail policy, bathrooms and showers. Patient Rights given to patient in the handbook. ARNOL DIAZ verbalizes understanding that [facility] is not responsible for the loss or damage to any personal effects or valuables that are kept in the patients posession during their hospitalization. The following Patient Care Plans were discussed with the PATIENT: Discharge Planning, PAIN, IMMOBILITY AND KNOWLEDGE. ARNOL DIAZ verbalizes understanding of Interdisciplinary Patient Education.
[2018-06-22] MEDS ORDERED: VANCOMYCIN 1 GM/NS 250 ML IVPB IV NR ×2 (16:30)
[2018-06-22] MEDS ORDERED: NS IV ONE (16:30)
--- NOTE | 2018-06-22 16:31 | NUR ---
CR 1.17; CR CL < 60; WT 145 KG; VANCO 2000 MG IV Q24H X 3 DAYS
[2018-06-22 16:37] VITALS: BP 146/81
[2018-06-22] MEDS ORDERED: ONDANSETRON 4 MG/2 ML (SDV) Z0FRAN IV PRN (16:45)
--- NOTE | 2018-06-22 17:15 | NUR ---
CALL DR EMMANUEL REGARDING FLUIDS ON SEPSIS PROTOCOL AND PO TORADOL ORDERED. CHANGED IVF TO NS AT 75 MLS PER HOUR AND TORADOL TO IV.
[2018-06-22] MEDS: metroNIDAZOLE 500MG/100ML IVPB 100 ML IV SCH (17:57)
[2018-06-22] MEDS ORDERED: KETOROLAC 15 MG/ML VIAL IVP PRN (18:15)
[2018-06-22 20:00] VITALS: BP 126/67
[2018-06-22] MEDS: inSUlin ASPART (NovoLOG) 1 UNIT/0.01 ML (CHARGE PER UNIT) SC SCH (20:54)
[2018-06-22] MEDS: APIXABAN 5 MG (ELIQUIS) TABLET PO SCH (20:55)
[2018-06-22] MEDS ORDERED: meTOproloL SUCCINATE 50 MG (TOPROL XL) TAB PO SCH (21:00)
[2018-06-22] MEDS ORDERED: ATORVASTATIN 40 MG (LIPITOR) TABLET PO SCH (21:00)
--- NOTE | 2018-06-22 22:47 | NUR ---
2099-ON ASSESSMENT OF PT I NOTICED PT HAS SEVERE EXPRESSIVE APHASIA, SLIGHT RIGHT SIDED WEAKNESS WITH A LEFT INWARD GAZE. THIS RN HAD ANOTHER RN VERIFY FINDINGS. 2149-SPOKE WITH DR. EMMANUEL AND INFORMED HER OF PTS FINDINGS AND THAT PT STATES APHASIA STARTED YESTERDAY SOMETIME. BUT PT HAS ALSO HAD SOME SLIGHT CONFUSION. NO CT SCAN PREFORMED IN ED ON PTS ARRIVAL. TELEPHONE ORDERS RECEIVED FOR CT SCAN OF HEAD TO RULE OUT STROKE. ORDER PLACED. 2209-TOOK PT DOWN FOR CT SCAN. 2245-STATRAD CALLED DR. EMMANUEL AND INFORMED HER OF NEGATIVE CT RESULTS AND SHE PASSED ON RESULTS TO THIS RN. I INFORMED PT OF NEGATIVE RESULTS. PT RESTING COMFORTABLY AT THIS TIME.
[2018-06-22] MEDS: ACETAMINOPHEN 500 MG TAB (TYLENOL) PO PRN (23:58)
[2018-06-22] MEDS: CEFEPIME 1,000 MG/SWFI 10 ML IV PUSH IV SCH ×2 (23:59)
[2018-06-23] VITALS (7 sets, daily range): BP systolic 106–144; BP diastolic 63–72
[2018-06-23] MEDS ORDERED: NS IV 1000 ML 1,000 ML IV SCH (00:18)
[2018-06-23] MEDS: metroNIDAZOLE 500MG/100ML IVPB 100 ML IV SCH ×2 (05:37→16:16)
[2018-06-23] MEDS: inSUlin ASPART (NovoLOG) 1 UNIT/0.01 ML (CHARGE PER UNIT) SC SCH ×4 (05:43→21:08)
[2018-06-23 06:06] LABS: BASOPHILS % (AUTO) 0 % (0-10); EOSINOPHILS % (AUTO) 0 % (0-10); HEMATOCRIT 28 % (35-52); LYMPHOCYTES # (AUTO) 0.7 X 10^3 (1.0-4.0); LYMPHOCYTES % (AUTO) 4 % (12-44); MEAN CORPUSCULAR HEMOGLOBIN 31 PG (25-34); MEAN CORPUSCULAR HGB CONC 32 G/DL (32-36); MEAN CORPUSCULAR VOLUME 97 FL (80-99); MEAN PLATELET VOLUME 9.3 FL (7.4-10.4); MONOCYTES # (AUTO) 0.9 X 10^3 (0.0-1.0); MONOCYTES % (AUTO) 5 % (0-12); NEUTROPHILS % (AUTO) 90 % (42-75); PLATELET COUNT 144 10^3/uL (130-400); RED CELL DISTRIBUTION WIDTH 14.6 % (10.0-14.5); WHITE BLOOD COUNT 16.7 10^3/uL (4.3-11.0)
[2018-06-23 06:29] LABS: ALBUMIN 2.8 GM/DL (3.2-4.5); BILIRUBIN,TOTAL 0.6 MG/DL (0.1-1.0); CALCIUM 8.5 MG/DL (8.5-10.1); CREATININE SERUM 1.06 MG/DL (0.60-1.30); POTASSIUM 3.6 MMOL/L (3.6-5.0); TOTAL PROTEIN 5.3 GM/DL (6.4-8.2)
[2018-06-23] MEDS: CEFEPIME 1,000 MG/SWFI 10 ML IV PUSH IV SCH ×6 (06:45→18:13)
--- NOTE | 2018-06-23 07:34 | Diagnostic Imaging Report ---
PROCEDURE: CT head wo r/o stroke. TECHNIQUE: Multiple contiguous axial images were obtained through the brain without the use of intravenous contrast. Auto Exposure Controls were utilized during the CT exam to meet ALARA standards for radiation dose reduction. INDICATION: Stroke. No priors. Densely calcified high right parafalcine nodule 2 cm believed to be a chronic calcified benign meningioma. No acute or suspect space-occupying lesion and no hakeem-lesional vasogenic edema. No acute appearing intracranial pathology found. No suspicious mass. No abnormal extra-axial fluid collection. No findings of hemorrhage. No evidence for focal or generalized cerebral edema. No findings of elevated intracranial pressures. Orbits, sinuses, and calvarium nonacute. IMPRESSION: Findings of a densely calcified chronic benign parafalcine meningioma with no hemorrhage, edema, or acute appearing pathology. Dictated by: Dictated on workstation # [id number]
--- NOTE | 2018-06-23 07:45 | Diagnostic Imaging Report ---
INDICATION: Sepsis. TECHNIQUE: Single view chest 3:37 AM. CORRELATION STUDY: 06/22/2018 FINDINGS: Heart size enlarged. Component of pulmonary vascular congestion and perihilar edema does persist, but overall improved. Lung young stable. IMPRESSION: 1. Vascular congestion does persist but appear slightly improved from prior study. Superimposed perihilar edema versus infiltrate. Dictated by: Dictated on workstation # [id number]
[2018-06-23] MEDS: ACETAMINOPHEN 500 MG TAB (TYLENOL) PO PRN ×2 (08:36→20:47)
[2018-06-23] MEDS: NS IV 1000 ML 1,000 ML IV SCH ×2 (08:36→23:49)
[2018-06-23] MEDS: APIXABAN 5 MG (ELIQUIS) TABLET PO SCH ×2 (08:36→20:46)
[2018-06-23] MEDS ORDERED: meTOproloL SUCCINATE 50 MG (TOPROL XL) TAB PO SCH (09:00)
[2018-06-23] MEDS ORDERED: AMIODARONE 200 MG (CORDARONE) TAB PO SCH (09:00)
--- NOTE | 2018-06-23 10:11 | NUR ---
DR. COBOS NOTIFIED OF CONSULT.
[2018-06-23] MEDS ORDERED: DOXY100C2 PO (10:58)
[2018-06-23] MEDS ORDERED: METO-370 PO (10:58)
[2018-06-23] MEDS ORDERED: AMIO200T4 PO (10:58)
[2018-06-23] MEDS ORDERED: DARB40VI IV (11:09)
[2018-06-23] MEDS ORDERED: FERR750V IV (11:09)
--- NOTE | 2018-06-23 11:16 | NUR ---
WENT OVER THE EXT MED HX WITH THE PATIENT AND SHE VERIFIED HOW SHE TAKES EACH MEDICATION.
--- NOTE | 2018-06-23 14:15 | NUR ---
Pastoral care visit.
--- NOTE | 2018-06-23 15:24 | History & Physical-Hospitalist ---
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 She is morbidly obese with a BMI of 59.2. She had a period of treatment at a rehabilitation facility attempting to get her better back on her feet. She had been in the wound care clinic all of the fall. In February she was admitted here with atrial fibrillation and rapid ventricular response. She continues to struggle with open wound on her legs. She was admitted after she presented to the emergency room yesterday. This was precipitated by trying to get up out of her chair and feeling weak and ultimately sliding to the floor. She denied striking her head or any loss of consciousness. She presented to the emergency room and was felt to have sepsis most related to her cellulitis and open wounds. I had a phone call earlier this morning from bacteriology reporting growth on of cocci in chains most consistent with enterococcus/ pneumococcus. Source: patient Exam Limitations: no limitations Date Seen 06/23/18 Time Seen by a Provider: 15:18 Attending Physician Susu Cabrera MD PCP Liu Roblero MD Referring Physician Date of Admission Jun 22, 2018 at 15:05 Home Medications & Allergies Home Medications Reviewed patient Home Medication Reconciliation performed by pharmacy medication reconciliations small engine technician and/or nursing. Patients Allergies have been reviewed. Allergies Allergies Coded Allergies NSAIDS (Non-Steroidal Anti-Inflamma (Verified Allergy, Severe, BLOOD IN URINE , 06/23/18) celecoxib (Unverified Allergy, Severe, BLOOD IN URINE, 06/23/18) penicillin G (Verified Allergy, Unknown, HAS RECEIVED ANCEF W/O ISSUE, 10/13/15 ) Past Elkzsdq-Aeksff-Efrxce Hx Patient Social History Alcohol Use: Denies Use Recreational Drug Use: No Smoking Status: Never a Smoker 2nd Hand Smoke Exposure: No Physical Abuse Screen: No Sexual Abuse: No Recent Foreign Travel: No Contact w/other who traveled: No Recent Hopitalizations: Yes (REHAB) Recent Infectious Disease Expo: No Immunizations Up To Date Tetanus Booster (TDap): Unknown Date of Influenza Vaccine: Dec 24, 2017 Seasonal Allergies Seasonal Allergies: No Past Medical History Respiratory: Asthma, Sleep Apnea Currently Using CPAP: Yes Currently Using BIPAP: No Cardiac: Atrial Fibrillation Sexually Transmitted Disease: No HIV/AIDS: No Female Reproductive Disorders: Denies Genitourinary: Bladder Infection Gastrointestinal: Hiatal Hernia Musculoskeletal: Arthritis Endocrine: Diabetes, Non-Insulin dep Hearing Impairment: Denies Cancer: Melanoma Did You Recieve Any Treatments: No History of Blood Disorders: No Adverse Reaction to Blood Hernández: No Family History Dementia 19 MOTHER Diabetes mellitus G8 SISTER Myocardial infarction 19 FATHER Neoplasm G8 SISTER Heart Disease a-fib in siblings Review of Systems Constitutional: see HPI Respiratory: no symptoms reported Cardiovascular: no symptoms reported Gastrointestinal: no symptoms reported Genitourinary: no symptoms reported Musculoskeletal: other (generalized weakness) Skin: other (open sores in dressing over right lower leg ) Psychiatric/Neurological: No Symptoms Reported Physical Exam Physical Exam Vital Signs Vital Signs - First Documented 06/22/18 13:00 Temp 99.8 Pulse 92 Resp 18 B/P (MAP) 155/78 (103) Pulse Ox 94 O2 Delivery Nasal Cannula O2 Flow Rate 2.00 Capillary Refill : Less Than 3 Seconds Height, Weight, BMI Height: 5'4.00" Weight: 345lbs. 2.0oz. 156.385656ho; 58.5 BMI Method:Stated General Appearance: No Apparent Distress Eyes: Bilateral Eye Normal Inspection HEENT: Normal ENT Inspection Neck: Normal Inspection Respiratory: Chest Non Tender, Lungs Clear, Normal Breath Sounds, No Accessory Muscle Use, No Respiratory Distress Cardiovascular: Irregularly Irregular Gastrointestinal: Other (very large pannus) Extremity: Other (thighs are huge.) Neurologic/Psychiatric: Alert, Oriented x3, procedure analyst II-XII Norm as Tested Results Results/Procedures Labs Laboratory Tests 06/22/18 13:05 06/23/18 05:49 Patient resulted labs reviewed. Clinical Quality Measures DVT/VTE Risk/Contraindication: Risk Factor Score Per Nursin RFS Level Per Nursing on Admit: 4+=Very High BROOKE IRVIN MD Jun 23, 2018 15:24
[2018-06-23] MEDS: VANCOMYCIN 2000 MG/NS 500 ML IVPB IV SCH ×2 (15:31)
[2018-06-23] MEDS ORDERED: RT-ALBUTEROL HFA (VENTOLIN) PER PUFF IH PRN (16:00)
--- NOTE | 2018-06-23 20:18 | Wound Care Assessment ---
Wound Care Assessment Date Seen by Provider: Jun 23, 2018 Time Seen by Provider: 20:00 Chief Complaint R calf ulcers. HPI The patient is a 73 year old female with complex ulceration of the R calf, long- standing, with combined arterial, venous, diabetic, and lymphedema etiologies. The patient has been admitted with sepsis, very likely related to wound infection arising in these calf ulcers. The bases are necrotic. The patient was in the midst of a long-delayed vascular evaluation, which she has postponed and cancelled on multiple occasions. She is urged to elevate her legs. Dakin' s dressings are ordered. The patient is on IV antibiotics. Past Medical History: Admits Diabetes Type II, Admits Heart Disease Smoking Status: Never a Smoker Recreational Drug Use: No Alcohol Use: Denies Use Exam Vital Signs Date Time Temp Pulse Resp B/P (MAP) Pulse Ox O2 Delivery O2 Flow Rate FiO2 06/23/18 16:58 97.6 72 18 119/69 (86) 98 Nasal Cannula 3.00 Capillary Refill : Less Than 3 Seconds Results Laboratory Tests 06/22/18 20:35: Glucometer 130H 06/23/18 05:25: Glucometer 93 06/23/18 05:49: White Blood Count 16.7H, Red Blood Count 2.91L, Hemoglobin 9.0L, Hematocrit 28L , Mean Corpuscular Volume 97, Mean Corpuscular Hemoglobin 31, Mean Corpuscular Hemoglobin Concent 32, Red Cell Distribution Width 14.6H, Platelet Count 144, Mean Platelet Volume 9.3, Neutrophils (%) (Auto) 90H, Lymphocytes (%) (Auto) 4L , Monocytes (%) (Auto) 5, Eosinophils (%) (Auto) 0, Basophils (%) (Auto) 0, Neutrophils # (Auto) 15.0H, Lymphocytes # (Auto) 0.7L, Monocytes # (Auto) 0.9, Eosinophils # (Auto) 0.0, Basophils # (Auto) 0.0, Sodium Level 138, Potassium Level 3.6, Chloride Level 109H, Carbon Dioxide Level 20L, Anion Gap 9, Blood Urea Nitrogen 20H, Creatinine 1.06, Estimat Glomerular Filtration Rate 51, BUN/ Creatinine Ratio 19, Glucose Level 90, Calcium Level 8.5, Corrected Calcium 9.5 , Total Bilirubin 0.6, Aspartate Amino Transf (AST/SGOT) 41H, Alanine Aminotransferase (ALT/SGPT) 25, Alkaline Phosphatase 74, Total Protein 5.3L, Albumin 2.8L 06/23/18 11:51: Glucometer 123H 06/23/18 16:58: Glucometer 117H Microbiology 06/22/18 Blood Culture - Preliminary, Resulted Positive; See Report 06/22/18 Influenza Types A,B Antigen ([facility]OK) - Final, Complete 06/22/18 Urine Culture - Final, Complete NO GROWTH Microbiology 06/22/18 Blood Culture - Preliminary, Resulted Positive; See Report 06/22/18 Influenza Types A,B Antigen (ASHOK) - Final, Complete 06/22/18 Urine Culture - Final, Complete NO GROWTH OLIVER COBOS MD Jun 23, 2018 20:18
[2018-06-23] MEDS ORDERED: DAKIN'S 1/4 STRENGTH (0.125%) 473 ML BTL TOP SCH (20:30)
[2018-06-23] MEDS: MONTELUKAST 10 MG (SINGULAIR) TAB PO SCH (20:46)
[2018-06-23] MEDS: ATORVASTATIN 40 MG (LIPITOR) TABLET PO SCH (20:46)
[2018-06-23] MEDS: RT-ADVAIR HFA 115/21 MCG PER PUFF IH SCH (22:48)
[2018-06-24] MEDS: CEFEPIME 1,000 MG/SWFI 10 ML IV PUSH IV SCH ×4 (00:25→07:04)
[2018-06-24 03:50] VITALS: BP 137/63
[2018-06-24] MEDS: ACETAMINOPHEN 500 MG TAB (TYLENOL) PO PRN ×3 (03:51→21:52)
[2018-06-24] MEDS: metroNIDAZOLE 500MG/100ML IVPB 100 ML IV SCH (05:10)
[2018-06-24 05:19] LABS: ALBUMIN 2.9 GM/DL (3.2-4.5); BILIRUBIN,TOTAL 0.5 MG/DL (0.1-1.0); CALCIUM 8.1 MG/DL (8.5-10.1); CREATININE SERUM 0.96 MG/DL (0.60-1.30); POTASSIUM 3.7 MMOL/L (3.6-5.0); TOTAL PROTEIN 5.6 GM/DL (6.4-8.2)
[2018-06-24] MEDS: inSUlin ASPART (NovoLOG) 1 UNIT/0.01 ML (CHARGE PER UNIT) SC SCH ×4 (05:19→21:37)
[2018-06-24] MEDS: FOLIC ACID 1 MG TAB PO SCH (06:38)
[2018-06-24] MEDS: KCL 10 MEQ TAB (MICRO K) PO SCH (06:38)
[2018-06-24 08:00] VITALS: BP 133/59
[2018-06-24] MEDS: MAGNESIUM OXIDE (MAG-OX)400 MG TAB PO SCH (09:13)
[2018-06-24] MEDS: meTOproloL SUCCINATE 50 MG (TOPROL XL) TAB PO SCH (09:13)
[2018-06-24] MEDS: FUROSEMIDE 40 MG (LASIX) TAB PO SCH (09:13)
[2018-06-24] MEDS: FUROSEMIDE 20 MG (LASIX) TAB PO SCH (09:13)
[2018-06-24] MEDS: APIXABAN 5 MG (ELIQUIS) TABLET PO SCH ×2 (09:13→21:37)
[2018-06-24] MEDS: AMIODARONE 200 MG (CORDARONE) TAB PO SCH (09:13)
[2018-06-24 09:45] LABS: BASOPHILS % (AUTO) 0 % (0-10); EOSINOPHILS # (AUTO) 0.1 10^3/uL (0.0-0.3); EOSINOPHILS % (AUTO) 1 % (0-10); HEMATOCRIT 30 % (35-52); HEMOGLOBIN 9.3 G/DL (11.5-16.0); LYMPHOCYTES # (AUTO) 0.6 X 10^3 (1.0-4.0); LYMPHOCYTES % (AUTO) 5 % (12-44); MEAN CORPUSCULAR HEMOGLOBIN 30 PG (25-34); MEAN CORPUSCULAR HGB CONC 31 G/DL (32-36); MEAN CORPUSCULAR VOLUME 98 FL (80-99); MEAN PLATELET VOLUME 10.6 FL (7.4-10.4); MONOCYTES # (AUTO) 0.7 X 10^3 (0.0-1.0); MONOCYTES % (AUTO) 5 % (0-12); NEUTROPHILS # (AUTO) 12.3 X 10^3 (1.8-7.8); NEUTROPHILS % (AUTO) 89 % (42-75); PLATELET COUNT 142 10^3/uL (130-400); RED CELL DISTRIBUTION WIDTH 14.5 % (10.0-14.5); WHITE BLOOD COUNT 13.7 10^3/uL (4.3-11.0)
--- NOTE | 2018-06-24 10:03 | Progress Note-Hospitalist ---
Progress Note Progress Notes/Assess & Plan Date Seen 06/24/18 Time Seen by Provider: 10:00 Assessment & Plan The lab has informed me that the blood culture is now clearly group A beta hemolytic strep. Accordingly her antibiotics will be adjusted. Given her stated penicillin allergy, the vancomycin will be left on board. The metronidazole and meropenem will be discontinued. She has no new complaints today. Physical exam: Lungs are clear to auscultation. CV is regular. Her dressings are dry. Impression: Chronic wounds lower extremities. 2.diabetes mellitus. 3.septicemia growing group a beta hemolytic strep. Plan: Antibiotics as above. Focused Exam Lactate Level 06/22/18 13:05: Lactic Acid Level 2.45*H 06/22/18 16:02: Lactic Acid Level 1.37 BROOKE IRVIN MD Jun 24, 2018 10:03
[2018-06-24] MEDS: RT-ADVAIR HFA 115/21 MCG PER PUFF IH SCH ×2 (10:50→19:41)
[2018-06-24 12:00] VITALS: BP 116/53
[2018-06-24] MEDS: NS IV 1000 ML 1,000 ML IV SCH (13:24)
--- NOTE | 2018-06-24 14:01 | NUR ---
NOTE THAT PER PT FSBS WAS DONE AT THIS TIME -- PT ATE A VERY LATE BKFT
[2018-06-24] MEDS ORDERED: TROUGH ORDER-PHARMACY XX NR (14:30)
[2018-06-24] MEDS: VANCOMYCIN 2000 MG/NS 500 ML IVPB IV SCH ×2 (15:26)
[2018-06-24 16:00] VITALS: BP 139/65
--- NOTE | 2018-06-24 18:39 | NUR ---
NOTE THAT PT ATE A VERY LATE LUNCH AND 1400 FSBS DONE AT THIS TIME
[2018-06-24] MEDS: RT-ALBUTEROL SULF 2.5 MG/3 ML PRE-MIX VIAL INH PRN (19:41)
[2018-06-24 20:00] VITALS: BP 136/72
--- NOTE | 2018-06-24 20:05 | NUR ---
CM/SS. Visited with patient about post hospital care. PLAN: Patient is hopeful to return home when medically stable. She indicates she is established with [facility] for wound care and this should be resumed. If home is not the most appropriate plan, she is open to a return to [facility] for short term skilled care if needed. RECOMMENDATION: PT to regain stamina and strength. SUMMARY: Patient was at [facility] and then admitted to [facility] 12/24/17. She was discharged home just before [place] and has remained there until onset of this illness. Patient has three sons, one locally who is supportive and assists her routinely and as needed. The two other sons reside in [place] and [place] respectively. 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 She is knowledgeable about healthcare, she admits she was resistive to her first SNF placement but is open to it now as a bridge. DME: She has FWW she uses for ambulation. Follow and assist as appropriate.
[2018-06-24] MEDS: ATORVASTATIN 40 MG (LIPITOR) TABLET PO SCH (21:37)
[2018-06-24] MEDS: MONTELUKAST 10 MG (SINGULAIR) TAB PO SCH (21:37)
[2018-06-25] VITALS (7 sets, daily range): BP systolic 128–150; BP diastolic 58–69
[2018-06-25] MEDS: FOLIC ACID 1 MG TAB PO SCH (06:31)
[2018-06-25] MEDS: KCL 10 MEQ TAB (MICRO K) PO SCH (06:31)
[2018-06-25] MEDS: NS IV 1000 ML 1,000 ML IV SCH ×3 (06:31→22:51)
[2018-06-25] MEDS: inSUlin ASPART (NovoLOG) 1 UNIT/0.01 ML (CHARGE PER UNIT) SC SCH ×4 (06:59→22:53)
[2018-06-25 07:00] LABS: ALBUMIN 2.7 GM/DL (3.2-4.5); BILIRUBIN,TOTAL 0.4 MG/DL (0.1-1.0); CREATININE SERUM 0.92 MG/DL (0.60-1.30); POTASSIUM 3.6 MMOL/L (3.6-5.0); TOTAL PROTEIN 5.2 GM/DL (6.4-8.2)
[2018-06-25] MEDS: MAGNESIUM OXIDE (MAG-OX)400 MG TAB PO SCH (08:57)
[2018-06-25] MEDS: meTOproloL SUCCINATE 50 MG (TOPROL XL) TAB PO SCH (08:57)
[2018-06-25] MEDS: FUROSEMIDE 40 MG (LASIX) TAB PO SCH (08:58)
[2018-06-25] MEDS: FUROSEMIDE 20 MG (LASIX) TAB PO SCH (08:58)
[2018-06-25] MEDS: APIXABAN 5 MG (ELIQUIS) TABLET PO SCH ×2 (08:58→22:49)
[2018-06-25] MEDS: AMIODARONE 200 MG (CORDARONE) TAB PO SCH (08:58)
[2018-06-25] MEDS: ACETAMINOPHEN 500 MG TAB (TYLENOL) PO PRN ×3 (09:13→22:51)
[2018-06-25] MEDS: RT-ADVAIR HFA 115/21 MCG PER PUFF IH SCH ×2 (10:22→20:00)
[2018-06-25] MEDS: RT-ALBUTEROL SULF 2.5 MG/3 ML PRE-MIX VIAL INH PRN ×2 (10:22→21:30)
--- NOTE | 2018-06-25 10:44 | Progress Note-Hospitalist ---
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 She is morbidly obese with a BMI of 59.2. She had a period of treatment at a rehabilitation facility attempting to get her better back on her feet. She had been in the wound care clinic all of the fall. In February she was admitted here with atrial fibrillation and rapid ventricular response. She continues to struggle with open wound on her legs. She was admitted after she presented to the emergency room yesterday. This was precipitated by trying to get up out of her chair and feeling weak and ultimately sliding to the floor. She denied striking her head or any loss of consciousness. She presented to the emergency room and was felt to have sepsis most related to her cellulitis and open wounds. I had a phone call earlier this morning from bacteriology reporting growth on of cocci in chains most consistent with enterococcus/ pneumococcus. Subjective/Events-last exam Pt doing well today. Just getting up for the first time in bed and this is her fourth day in the hospital. Dr. Troncoso will be consulted for her anemia. Will order PT and OT. Appreciate wound care by Dr. Salgado. Will consult Dr. Alas for wheezing. She does use her home CPAP. Beta hemolytic strep bacteremia noted so will maintain on IV antibiotics. Really wants to go to inpatient rehab. Checked meds and labs. Review of Systems General: Fatigue Pulmonary: Dyspnea Focused Exam Lactate Level Objective Exam Vital Signs Vital Signs Date Time Temp Pulse Resp B/P (MAP) Pulse Ox O2 Delivery O2 Flow Rate FiO2 06/25/18 16:05 98.4 71 18 150/69 (96) 97 NIV CPAP 2.00 Capillary Refill : Less Than 3 Seconds General Appearance: No Apparent Distress, WD/WN, Chronically ill, Obese HEENT: Normal ENT Inspection Neck: Normal Inspection Respiratory: Chest Non Tender, No Accessory Muscle Use, No Respiratory Distress , Crackles, Decreased Breath Sounds, Wheezing Cardiovascular: Irregularly Irregular Gastrointestinal: Non Tender, Soft, Other (very large pannus) Back: Normal Inspection, No CVA Tenderness, No Vertebral Tenderness Extremity: Non Tender, No Calf Tenderness, Other (severe venous stasis dermatitis) Neurologic/Psychiatric: Alert, Oriented x3, watch train assembler II-XII Norm as Tested Skin: Other (right loeg in dressing) Results/Procedures Lab Laboratory Tests 06/25/18 06:10 Patient resulted labs reviewed. Assessment/Plan Assessment and Plan Assess & Plan/Chief Complaint Assessment: Sepsis Cellulitis Fall Rhabdomyolysis Obesity ADITI on CPAP AF Plan: IV abx PT/OT Supportive care Dr Salgado appreciated Lary Alas and Nelsy are appreciated IRF? Diagnosis/Problems Diagnosis/Problems (1) Beta-hemolytic group A streptococcal sepsis (2) Ulcers of both lower extremities Status: Acute Qualifiers: Non-pressure ulcer stage: with fat layer exposed Qualified Codes: L97.912 - Non-pressure chronic ulcer of unspecified part of right lower leg with fat layer exposed; L97.922 - Non-pressure chronic ulcer of unspecified part of left lower leg with fat layer exposed (3) Anemia Status: Chronic Qualifiers: Anemia type: unspecified type Qualified Codes: D64.9 - Anemia, unspecified (4) ADITI on CPAP Status: Chronic (5) Hypertension Status: Chronic Qualifiers: Hypertension type: essential hypertension Qualified Codes: I10 - Essential (primary) hypertension (6) Diabetes Status: Chronic Qualifiers: Diabetes mellitus type: type 2 Diabetes mellitus fdc insulin use: with fdc use Diabetes mellitus complication status: with circulatory complication Diabetes mellitus complication detail: with other circulatory complications Qualified Codes: E11.59 - Type 2 diabetes mellitus with other circulatory complications; Z79.4 - exterminator termite (current) use of insulin (7) Wheezing Status: Acute (8) Asthma Status: Chronic Qualifiers: Asthma severity: moderate Asthma persistence: persistent Asthma complication type: with acute exacerbation Qualified Codes: J45.41 - Moderate persistent asthma with (acute) exacerbation (9) Hypotension Status: Resolved Qualifiers: Hypotension type: unspecified hypotension type Qualified Codes: I95.9 - Hypotension, unspecified Resolution Date/Time: 06/25/18 @ 20:17 (10) Arthritis Status: Chronic (11) Osteoporosis Status: Chronic Qualifiers: Osteoporosis type: unspecified Presence of current pathological fracture: unspecified Qualified Codes: M81.0 - Age-related osteoporosis without current pathological fracture (12) Obesity Status: Chronic Qualifiers: Obesity type: due to excess calories Obesity classification: adult class 3 (BMI >= 40) Serious obesity comorbidity presence: with serious comorbidity Body mass index: BMI 60.0-69.9 Qualified Codes: E66.01 - Morbid (severe) obesity due to excess calories; Z68.44 - Body mass index (bmi) 60.0-69.9, adult (13) Debility Status: Acute (14) Lymphedema Status: Chronic Clinical Quality Measures DVT/VTE Risk/Contraindication: Risk Factor Score Per Nursin RFS Level Per Nursing on Admit: 4+=Very High NELIA MCKEON DO Jun 25, 2018 10:44
--- NOTE | 2018-06-25 11:13 | Physical Therapy Evaluation ---
PT Evaluation-General Medical Diagnosis Admission Date Jun 22, 2018 at 15:05 Medical Diagnosis: sepsis Onset Date: Jun 22, 2018 Therapy Diagnosis Therapy Diagnosis: impaired mobility, strength, endurance Height/Weight Height (Feet): 5 Height (Inches): 4.00 Weight (Pounds): 358 Weight (Ounces): 0.0 Precautions Precautions/Isolations: Fall Prevention, Standard Precautions Referral Physician: Danielle Kate DO Reason for Referral: Evaluation/Treatment Medical History Pertinent Medical History: DM, HTN Additional Medical History Past Medical History Respiratory: Asthma, Sleep Apnea Currently Using CPAP: Yes Currently Using BIPAP: No Cardiac: Atrial Fibrillation Sexually Transmitted Disease: No HIV/AIDS: No Female Reproductive Disorders: Denies Genitourinary: Bladder Infection Gastrointestinal: Hiatal Hernia Musculoskeletal: Arthritis Endocrine: Diabetes, Non-Insulin dep Hearing Impairment: Denies Cancer: Melanoma Current History Patient went to the ER after sliding out of a chair at home to the floor, has sepsis related to cellulitis in legs. Reviewed History: Yes Social History Home: Single Level Current Living Status: Alone Entry Into Home: [facility] Prior/[facility] Prior Level of Function Therapy Code Descriptions/Definitions Functional [place] Measure: 0=Not Assessed/NA 4=Minimal Assistance 1=Total Assistance 5=Supervision or Setup 2=Maximal Assistance 6=Modified [place] 3=Moderate Assistance 7=Complete [place] Therapy Quality Codes: 6 Independent with activity with or without an assistive device 5 Patient requires set up or clean up by helper. Patient completes activity by themselves 4 Supervision or touching assist (CGA). [place] provide cues , steadying assist 3 The helper provides less than half the effort to complete the activity 2 The helper provides more than half the effort to complete the activity 1 Dependent. The helper does all the effort to complete an activity 7 Patient refused to complete or attempt activity 9 The patient did not perform the activity before the current illness or injury 88 Not attempted due to Medical conditions or safety concerns Functional Abilities and Goals: Independent: Patient completed the activities by him/herself, with or without an assistive device, with no assistance from a helper. Needed Some Help: Patient needed partial assistance from another person to complete activities. Dependent: A helper completed the activities for the patient. Unknown: Not Applicable: Bed Mobility: 6 Transfers (B,C,W/C) (FIM): 6 Gait: 6 Indoor Mobility (Ambulation): Independent PT Evaluation-Current Subjective Patient in bed pre tx, agrees to PT, has 4/10 pain in right leg due to cellulitis. Pt/Family Goals "to get stronger" Objective Patient Orientation: Person, Place, Situation Attachments: Bello Catheter, IV ROM/Strength ROM Lower Extremities limited bilaterally due to obesity Strength Lower Extremities gross 4-/5 bilaterally Neuromuscular (Tone, Coordination, Reflexes) NT Sensory Vision: Wears Glasses Hearing: Functional Sensation Right Lower Extremit: Intact Sensation Left Lower Extremity: Intact Transfers Therapy Code Descriptions/Definitions Functional [place] Measure: 0=Not Assessed/NA 4=Minimal Assistance 1=Total Assistance 5=Supervision or Setup 2=Maximal Assistance 6=Modified [place] 3=Moderate Assistance 7=Complete [place] Transfers (B, C, W/C) (FIM): 3 Scootin Rollin Supine to/from Sit: 3 Sit to/from Stand: 4 bed t/f WC(FIM only if WC use): 4 mod assist for supine to sit, CGA for sit to stand, CGA for transfers, cues for positioning Gait Mode of Locomotion: Walk Anticipated Mode of Locomotion: Walk Gait (FIM): 1 Distance: 3' Gait Level of Assist: 4 Gait Persons Needed: 1 Gait Assistive Device: FWW Comments/Gait Description CGA, very slow, has a hard time starting ambulation, each step is an effort Balance Sitting Static: Normal Sitting Dynamic: Normal Standing Static: Fair Standing Dynamic: Fair Treatment seated exercises x15 (AP, LAQ) Assessment/Needs Patient has impaired mobility, strength, endurance. She has a lot of difficulty getting out of bed. Rehab Potential: Fair PT Short Term Goals Short Term Goals Time Frame: Jul 02, 2018 Transfers (B,C,W/C) (FIM): 4 Gait (FIM): 1 Gait Distance Comment: 20' Gait Level of Assist: 4 Gait Assistive Device: FWW PT Plan Problem List Problem List: Activity Tolerance, Functional Strength, Safety, Balance, Gait, Transfer, Bed Mobility Treatment/Plan Treatment Plan: Continue Plan of Care Treatment Plan: Bed Mobility, Education, Functional Activity Yimi, Functional Strength, Gait, Safety, Therapeutic Exercise, Transfers Treatment Duration: Jul 02, 2018 Frequency: 6 times per week Estimated Hrs Per Day: .25 hour per day (15-30') Patient and/or Family Agrees t: Yes Safety Risks/Education Patient Education: Gait Training, Transfer Techniques, Correct Positioning, Safety Issues Teaching Recipient: Patient Teaching Methods: Demonstration, Discussion Response to Teaching: Reinforcement Needed Discharge Recommendations Plan Patient will perform bed mobility and transfer training, balance and endurance training, functional strengthening, stair training, gait training, and education , to improve functional mobility and independence at home. Therapy D/C Recommendations: Acute Rehab, Home w/ Family Support, Senior Care (TCU/NH) Time/GCodes Time In: 1040 Time Out: 1105 Total Billed Treatment Time: 25 Total Billed Treatment 1 visit HEIDI 15' FA 10' RICO QUEZADA PT Jun 25, 2018 11:12
--- NOTE | 2018-06-25 11:26 | Consultation-Cardiology ---
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 Reports she was getting up out of chair at home when she became extremely weak and had to slide herself down to the floor. Denies any chest pain or dyspnea. Has history of chronic lower extremity would and follows with Dr. Salgado in wound care. Was scheduled to have GEETA's done at our office earlier this week, but cancelled secondary to her weakness. Patient had blood cultures x 2 done with growth of beta hemolytic strep in 1 tube. Home Medications & Allergies Allergies: Coded Allergies: NSAIDS (Non-Steroidal Anti-Inflamma (Verified Allergy, Severe, BLOOD IN URINE, 06/23/18) celecoxib (Unverified Allergy, Severe, BLOOD IN URINE, 06/23/18) penicillin G (Verified Allergy, Unknown, HAS RECEIVED ANCEF W/O ISSUE, ) Home Medication List Reviewed: Yes HKR-Jfudmp-Rbygus Hx Patient Social History Employed/Student: retired Alcohol Use: Denies Use Recreational Drug Use: No Smoking Status: Never a Smoker 2nd Hand Smoke Exposure: No Recent Foreign Travel: No Recent Infectious Disease Expo: No Recent Hopitalizations: Yes (REHAB) Physical Abuse Screen: No Sexual Abuse: No Immunizations Up To Date Tetanus Booster (TDap): Unknown Date of Influenza Vaccine: Dec 24, 2017 Past Medical History PAF, HTN, morbid obesity, chronic lower extremity wounds. Family Medical History Significant Family History: No Pertinent Family Hx, Heart Disease Family History: Dementia 19 MOTHER Diabetes mellitus G8 SISTER Myocardial infarction 19 FATHER Neoplasm G8 SISTER Review of Systems Constitutional: chills; No diaphoresis; fever, malaise, weakness EENTM: No blurred vision, No double vision, No vision loss, No epistaxis, No nose pain, No throat pain Respiratory: No cough, No dyspnea on exertion Cardiovascular: No chest pain; edema; No Hx of Intervention, No palpitations, No syncope, No vascular heart diseas Gastrointestinal: No abdominal pain, No constipation, No diarrhea Genitourinary: No dysuria, No frequency Musculoskeletal: No back pain, No joint pain Skin: other (non healing wound RLE) Reviewed Test Results Reviewed Test Results Lab Laboratory Tests 06/24/18 13:51: Glucometer 140H 06/24/18 14:40: Vancomycin Level Trough 13.6 06/24/18 18:36: Glucometer 131H 06/24/18 21:15: Glucometer 144H 06/25/18 05:17: Glucometer 113H 06/25/18 06:10: Sodium Level 140, Potassium Level 3.6, Chloride Level 110H, Carbon Dioxide Level 24, Anion Gap 6, Blood Urea Nitrogen 19H, Creatinine 0.92, Estimat Glomerular Filtration Rate 60, BUN/Creatinine Ratio 21, Glucose Level 115H, Calcium Level 8.0L, Corrected Calcium 9.0, Total Bilirubin 0.4, Aspartate Amino Transf (AST/SGOT) 25, Alanine Aminotransferase (ALT/SGPT) 21, Alkaline Phosphatase 110, Total Protein 5.2L, Albumin 2.7L 06/25/18 10:12: Glucometer 100 Microbiology 06/22/18 Blood Culture - Preliminary, Resulted No growth 06/22/18 Influenza Types A,B Antigen (ASHOK) - Final, Complete 06/22/18 Urine Culture - Final, Complete NO GROWTH Physical Exam Vital Signs Vital Signs - First Documented 06/22/18 13:00 Temp 99.8 Pulse 92 Resp 18 B/P (MAP) 155/78 (103) Pulse Ox 94 O2 Delivery Nasal Cannula O2 Flow Rate 2.00 Capillary Refill : Less Than 3 Seconds Height, Weight, BMI Height: 5'4.00" Weight: 358lbs. 0.0oz. 162.489383fc; 58.5 BMI Method:Stated General Appearance: No Apparent Distress, WD/WN HEENT: PERRL/EOMI, Normal ENT Inspection Neck: Full Range of Motion, Non Tender, Supple; No Carotid Bruit Respiratory: Chest Non Tender, No Accessory Muscle Use, No Respiratory Distress , Wheezing Cardiovascular: Regular Rate, Rhythm, No JVD, No Murmur, Normal Peripheral Pulses Gastrointestinal: No Pulsatile Mass, Non Tender, Soft Rectal: Deferred Back: No CVA Tenderness Extremity: Pedal Edema, Swelling, Other (RLE with C/D/I dressing in place) A/P-Cardiology Admission Diagnosis Septicemia PAF HTN HLP Assessment/Plan Septicemia- Blood culture + for group A Strep. On IV antibiotic. Management per hospitalist Paroxysmal atrial fibrillation-History of CHRISTOS with successful cardioversion January 2018. She is maintained on amiodarone, Toprol, Eliquis. Continue to monitor. History of chest pain, no recent episodes of chest pain, however she has multiple risk factors for underlying coronary artery disease. Was scheduled for stress test as outpatient in January, but test was not done. Planning to reschedule at a later time. Nonhealing wound to RLE, follows with Dr. Salgado. Wound cx done in May 2018 revealed MSSA. Was treated as outpatient. CTA done Nov 2017 showed less than optimal as the aorta and its branches not optimally opacified. There was no hemodynamically significant stenosis identified but the trifurcation arteries were not well imaged. There appears to be only a single vessel (posterior tibial artery runoff to each lower extremity). Hypertension, controlled, continue to monitor blood pressure/heart rate Hyperlipidemia, monitored as outpatient Iron Deficiency Anemia, followed by Dr. Roblero and Dr. Gaines Diabetes mellitus, followed and managed by primary care physician. Bronchial asthma. COPD, obstructive sleep apnea using C Pap machine. Nonobstructive carotid artery stenosis-carotid duplex done Jan 2018. Continue to monitor. Thank you for allowing us to participate in the management of Ms. Vasquez. This is Amberly Tucker PA-C, as a scribe for Dr. Whittington. This is Dr. Whittington, I have seen and evaluated the patient with Amberly, this 73 years old lady well known to my practice, history of paroxysmal atrial fibrillation chronic pedal edema, nonhealing wounds, admitted for generalized weakness, questionable septicemia, had one blood culture bottle out of 3 positive for strep, receiving antibiotic. We will continue monitoring. On examination lungs were clear to auscultation bilaterally, heart is regular. Continue on beta blockers and Eliquis at this point. I interviewed the patient and examined her and reviewed the current scribed note and agree with the current note. Clinical Quality Measures DVT/VTE Risk/Contraindication: Risk Factor Score Per Nursin RFS Level Per Nursing on Admit: 4+=Very High AMBERLY BRADY Jun 25, 2018 11:26 ARIANA WHITTINGTON MD Jun 25, 2018 14:04
--- NOTE | 2018-06-25 12:06 | Occupational Therapy Eval ---
OT Evaluation-General/PLF Medical Diagnosis Admission Date Jun 22, 2018 at 15:05 Medical Diagnosis: sepsis Onset Date: Jun 22, 2018 Therapy Diagnosis Therapy Diagnosis: weakness, Debility Height/Weight Height (Feet): 5 Height (Inches): 4.00 Weight (Pounds): 358 Weight (Ounces): 0.0 Precautions Precautions/Isolations: Fall Prevention, Standard Precautions Safety Interventions: None Weight Bear Status Weight Bearing Restriction: Full Weight Bearing Location Restriction: L LE, R LE Referral Physician: Danielle Kate DO Referral Reason: Activity Tolerance, Self Care, Evaluation/Treatment, Strengthening/ROM Medical History Pertinent Medical History: DM, HTN Additional Medical History CELLULITIS, LYMPHEDEMA, ASTHMA, SLEEP APNEA, OA, DM II, MELANOMA, A-FIB, HIATAL HERNIA Current History Patient went to the ER after sliding out of a chair at home to the floor, due to marked increase of weakness in BUE & BLE , has sepsis related to cellulitis in legs. Reviewed History: Yes Social History Home: Single Level Current Living Status: Alone Entry Into Home: Ramp ADL-Prior Level of Function Therapy Code Descriptions/Definitions Functional Howell Measure: 0=Not Assessed/NA 4=Minimal Assistance 1=Total Assistance 5=Supervision or Setup 2=Maximal Assistance 6=Modified Howell 3=Moderate Assistance 7=Complete Howell Therapy Quality Codes: 6 Independent with activity with or without an assistive device 5 Patient requires set up or clean up by helper. Patient completes activity by themselves 4 Supervision or touching assist (CGA). [place] provide cues , steadying assist 3 The helper provides less than half the effort to complete the activity 2 The helper provides more than half the effort to complete the activity 1 Dependent. The helper does all the effort to complete an activity 7 Patient refused to complete or attempt activity 9 The patient did not perform the activity before the current illness or injury 88 Not attempted due to Medical conditions or safety concerns Functional Abilities and Goals: Independent: Patient completed the activities by him/herself, with or without an assistive device, with no assistance from a helper. Needed Some Help: Patient needed partial assistance from another person to complete activities. Dependent: A helper completed the activities for the patient. Unknown: Not Applicable: ADL PLOF Comments Pt was mod I in UB, LB Dressing, grooming, toilet hygiene , func transfers & bed mobility & in sponge bath in bed . Independent in self feeding. No driving. Self Care: Needed Some Help Functional Cognition: Independent DME/Equipment: Grab Bars, Reachers, Toilet/Riser Drive Self: No OT Current Status Subjective Pt in a recliner, alert, oriented, cooperative, agree for therapy . 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 Rt sh. Flexion 0-90* , Left Sh. Flexion 0 -70* , Upper Extremity Coordination Intact Upper Extremity Sensation Intact Upper Extremity Strength MS in BUE -4/5 grossly graded. Hand circus hand fair . Pt O2 dependent, 3 Liters on PC. Fatigue soon. ADL-Treatment ADL-Current Pt participated in OT assessment . Pt requires mod A in sit to stand & supine to sit in bed . Pt Morbidly Obese. Feed self Independently. Pt participated in ADLs , Pt sponge-bath with " READY-BATH" Warm Wipes Face , arms, fore-arms, neck , around the neck, arm pits, shoulders, chest , abdomen & hairs Pt needs mod A in LB wipes. & back . MS in BUE -4/5 grossly graded.. Pt O2 dependent 3 Liters On with NC. Therapy Code Descriptions/Definitions Functional Howell Measure: 0=Not Assessed/NA 4=Minimal Assistance 1=Total Assistance 5=Supervision or Setup 2=Maximal Assistance 6=Modified Howell 3=Moderate Assistance 7=Complete Howell Therapy Quality Codes: 6 Independent with activity with or without an assistive device 5 Patient requires set up or clean up by helper. Patient completes activity by themselves 4 Supervision or touching assist (CGA). [place] provide cues , steadying assist 3 The helper provides less than half the effort to complete the activity 2 The helper provides more than half the effort to complete the activity 1 Dependent. The helper does all the effort to complete an activity 7 Patient refused to complete or attempt activity 9 The patient did not perform the activity before the current illness or injury 88 Not attempted due to Medical conditions or safety concerns Eating (FIM): 6 Grooming (FIM): 5 Bathing (FIM): 4 (Sponge-Bath in bed.) Bathing Location: L Arm, R Arm, L Upper Leg, R Upper Leg, L Lower Leg ( including foot), R Lower Leg (including foot), Chest, Abdomen, Buttocks, Perineal Area Upper Body Dressing (FIM): 4 Lower Body Dressing (FIM): 3 Toileting (FIM): 5 Transfers (B, C, W/C) (FIM): 3 Toilet/Commode Transfer (FIM): 3 Tub Transfer (FIM): 0 Shower Transfer (FIM): 0 Education OT Patient Education: Correct positioning, Safety issues, Use of adapted equipment Teaching Recipient: Patient Teaching Methods: Demonstration Response to Teaching: Verbalize Understanding OT Short Term Goals Short Term Goals Time Frame: Jul 09, 2018 Transfers (B,C,W/C) (FIM): 4 Additional Short Term Goals: 1-Demonstrate ADL Tasks, 2-Verbalize Understanding , 3-ImproveStrength/Yimi 1=Demonstrate adherence to instructed precautions during ADL tasks. 2=Patient will verbalize/demonstrate understanding of assistive devices/ modifications for ADL. 3=Patient will improve strength/tolerance for activity to enable patient to perform ADL's. OT Halfway Goals Halfway Goals Time Frame: July 23, 2018 Eating (FIM): 6 Grooming(FIM): 6 Bathing(FIM): 5 Bathing Location: L Arm, R Arm, L Upper Leg, R Upper Leg, L Lower Leg ( including foot), R Lower Leg (including foot), Chest, Abdomen Upper Body Dressing(FIM): 6 Lower Body Dressing(FIM): 6 Toileting(FIM): 6 Transfers (B,C,W/C) (FIM): 6 Toilet/Commode Transfer(FIM): 6 Tub Transfer(FIM): 0 Shower Transfer(FIM): 0 (Pt prefers sponge bath not a shower as per her statement.) Additional Goals: 1-Demonstrate ADL Tasks, 2-Verbalize Understanding, 3- ImproveStrength/Yimi 1=Demonstrate adherence to instructed precautions during ADL tasks. 2=Patient will verbalize/demonstrate understanding of assistive devices/ modifications for ADL. 3=Patient will improve strength/tolerance for activity to enable patient to perform ADL's. OT Education/Plan Problem List/Assessment Assessment: Decreased Activ Tolerance, Decreased Safety Aware, Decreased UE Strength, Dependent Transfers, Impaired Bed Mobility, Impaired Funct Balance, Impaired Self-Care Skills, Restricted Funct UE ROM Discharge Recommendations Plan/Recommendations: Continue POC Therapy D/C Recommendations: Home Independently Equpiment Recommendations-D/C: Extended Bath Bench, Extended Shower Sprayer, Contract Consultant, Hip Kit, [place] Treatment Plan/Plan of Care Treatment,Training & Education: Yes Patient would benefit from OT for education, treatment and training to promote independence in ADL's, mobility, safety and/or upper extremity function for ADL' s. Plan of Care: ADL Retraining, Functional Mobility, UE Funct Exercise/Act, UE Neuromus Re-Ed/Coord Treatment Duration: July 23, 2018 Frequency: 5 times per week Estimated Hrs Per Day: .5 hour per day Agreement: Yes Rehab Potential: Guarded Time/GCodes Start Time: 12:25 Stop Time: 12:50 Total Time Billed (hr/min): 25 Billed Treatment Time 1, EVM 14 min , ADLs 16 min. Total 30 minutes ALFRED SEGUNDO OT Jun 25, 2018 12:06
--- NOTE | 2018-06-25 12:29 | Pulmonary Consultation ---
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 Salgado. She presented to ED secondary to worsening weakness over the past week. No CP or dyspnea. Allergies and Home Medications Allergies Coded Allergies: NSAIDS (Non-Steroidal Anti-Inflamma (Verified Allergy, Severe, BLOOD IN URINE, 06/23/18) celecoxib (Unverified Allergy, Severe, BLOOD IN URINE, 06/23/18) penicillin G (Verified Allergy, Unknown, HAS RECEIVED ANCEF W/O ISSUE, ) Home Medications Acetaminophen 500 Mg Tablet, 1,000 MG PO Q4H PRN for PAIN-MILD, (Reported) Albuterol Sulfate 18 Gm Hfa.aer.ad, 2 PUFF INH Q4H PRN for SHORTNESS OF BREATH, (Reported) Amiodarone HCl 200 Mg Tablet, 200 MG PO DAILY, (Reported) Apixaban 5 Mg Tablet, 5 MG PO BID, (Reported) Ascorbate Calcium 500 Mg Tablet, 500 MG PO DAILY, (Reported) Atorvastatin Calcium 40 Mg Tablet, 40 MG PO HS, (Reported) Calcium Carbonate 600 Mg Tablet, 600 MG PO DAILY, (Reported) Cholecalciferol (Vitamin D3) 2,000 Unit Capsule, 2,000 UNIT PO DAILY, (Reported) Cyanocobalamin 100 Mcg Tablet, 200 MCG PO DAILY, (Reported) Darbepoetin Felice in Polysorbat 40 Mcg/1 Ml Vial, 35 MCG IV EVERY 2 WEEKS, ( Reported) Doxycycline Hyclate 100 Mg Capsule, 100 MG PO BID, (Reported) 14 DAY SUPPLY FILLED 06-17-18 Ferric Carboxymaltose 750 Mg/15 Ml Vial, 250 ML IV UD, (Reported) RECEIVED 1 DOSE 06-18-18 AND DUE FOR ONE MORE DOSE 05-25-18 Fluticasone/Salmeterol 1 Each Blst.w.dev, 1 PUFF INH BID, (Reported) Folic Acid 1 Mg Tablet, 1 MG PO DAILY, (Reported) Furosemide 40 Mg Tablet, 60 MG PO DAILY, (Reported) TAKES 1 & 1/2 (40MG) TABLET Magnesium Citrate 125 Mg Capsule, 250 MG PO HS, (Reported) TAKES 2 (125MG) CAPSULES Metoprolol Succinate 50 Mg Tab.er.24h, 50 MG PO DAILY, (Reported) Montelukast Sodium 10 Mg Tablet, 10 MG PO HS, (Reported) Potassium Chloride 10 Meq Tablet.er, 10 MEQ PO DAILY, (Reported) Tramadol HCl 50 Mg Tablet, 50-100 MG PO Q6H PRN for PAIN-MODERATE, (Reported) Past Xakbvel-Ehjjin-Kdcopu Hx Patient Social History Alcohol Use: Denies Use Recreational Drug Use: No Smoking Status: Never a Smoker 2nd Hand Smoke Exposure: No Recent Foreign Travel: No Contact w/Someone Who Travel: No Recent Infectious Disease Expo: No Recent Hopitalizations: Yes (REHAB) Physical Abuse: No Sexual Abuse: No Immunizations Up To Date Tetanus Booster (TDap): Unknown Date of Influenza Vaccine: Dec 24, 2017 Seasonal Allergies Seasonal Allergies: No Past Medical History Respiratory: Yes Asthma, Sleep Apnea, COPD Currently Using CPAP: Yes Currently Using BIPAP: No Cardiac: Yes Atrial Fibrillation Neurological: No Female Reproductive Disorders: Denies Sexually Transmitted Disease: No HIV/AIDS: No Genitourinary: No Bladder Infection Gastrointestinal: No Hiatal Hernia Musculoskeletal: Yes Arthritis Endocrine: Yes Diabetes, Non-Insulin dep HEENT: No Hearing Impairment: Denies Cancer: No Melanoma Did You Recieve Any Treatments: No Psychosocial: No Integumentary: Yes (ULCERS) Blood Disorders: No Adverse Reaction/Blood Tranf: No Family Medical History Dementia 19 MOTHER Diabetes mellitus G8 SISTER Myocardial infarction 19 FATHER Neoplasm G8 SISTER No Pertinent Family Hx, Heart Disease a-fib in siblings Sepsis Event Evaluation Height, Weight, BMI Height: 5'4.00" Weight: 358lbs. 0.0oz. 162.763812is; 58.5 BMI Method:Stated Exam Exam Vital Signs Date Time Temp Pulse Resp B/P (MAP) Pulse Ox O2 Delivery O2 Flow Rate FiO2 06/25/18 11:59 98.9 71 18 139/63 (88) 93 Room Air 06/25/18 10:25 94 Nasal Cannula 2.00 06/25/18 10:23 94 NIV CPAP 2.00 06/25/18 08:21 99.4 69 18 133/60 (84) 95 NIV CPAP 3.00 06/25/18 04:00 100.4 74 18 128/58 (81) 95 Nasal Cannula 2.00 06/25/18 00:00 98.0 74 18 143/65 (91) 96 Nasal Cannula 2.00 06/24/18 20:00 Nasal Cannula 3.00 06/24/18 20:00 98.0 76 20 136/72 (93) 96 Nasal Cannula 2.00 06/24/18 19:48 Nasal Cannula 2.00 06/24/18 19:42 93 NIV CPAP 2.00 06/24/18 16:00 97.9 73 20 139/65 (89) 93 Nasal Cannula 2.00 06/24/18 14:45 98.6 I & O 06/25/18 07:00 Intake Total 3050 ml Output Total 3000 ml Balance 50 ml Height & Weight Height: 5'4.00" Weight: 358lbs. 0.0oz. [id number]; 58.5 BMI Method:Stated General Appearance: No Apparent Distress, WD/WN, Chronically ill, Obese HEENT: Normal ENT Inspection Neck: Normal Inspection Respiratory: Chest Non Tender, No Accessory Muscle Use, No Respiratory Distress , Crackles, Decreased Breath Sounds, Wheezing Cardiovascular: Irregularly Irregular Capillary Refill: Less Than 3 Seconds Peripheral Pulses: 2+ Radial Pulses (R), 2+ Radial Pulses (L) Gastrointestinal: normal bowel sounds, non tender, soft Extremity: Non Tender, No Calf Tenderness, Other (severe venous stasis dermatitis) Neurologic/Psychiatric: Alert, Oriented x3, barn hand II-XII Norm as Tested Skin: Other (right loeg in dressing) Results Lab Laboratory Tests 06/24/18 04:30 06/24/18 04:36 06/25/18 06:10 Assessment/Plan Assessment/Plan sepsis with nonhealing RLE wound -blood culture is +1/2 for Beta hemolytic strep -currently on Vanco Hx of asthma -SVNS Obesity with ADITI -CPAP therapy Paroxysmal Afib -S/p cardioversion 01/2018 CP -Cardiology following LUIS SALOMON DO Jun 25, 2018 12:29
--- NOTE | 2018-06-25 13:45 | NUR ---
IRF Evaluation: Order received to evaluate patient for the ARU. Chart reviewed and discussed with Dr. Kate - patient accepted to ARU. Anticipate admission, 06/27/18. Thank you for this referral.
[2018-06-25] MEDS: A & D OINT 60 GM TUBE TOP SCH (14:41)
[2018-06-25] MEDS: VANCOMYCIN 2000 MG/NS 500 ML IVPB IV SCH ×2 (14:43)
[2018-06-25] MEDS ORDERED: DARBEPOETIN 40 MCG/ML (ARANESP) HOSPITAL SC NR (17:30)
--- NOTE | 2018-06-25 18:39 | CONSULTATION REPORT ---
DATE OF SERVICE: 06/25/2018 The patient is admitted to room . PHYSICIAN REQUESTING CONSULTATION: Danielle Kate DO IMPRESSION: 1. A 73-year-old female admitted to the hospital with increasing weakness and fall. 2. Found to have positive blood culture with Streptococcus pyogenes. The patient also has a chronic right lower extremity nonhealing ulcer with secondary bacterial infection. Currently, on IV antibiotics with vancomycin. 3. Anemia, which is multifactorial including iron deficiency as well as chronic kidney disease stage III. The patient has required intermittent parenteral iron therapy and was started on darbepoetin several months ago to maintain her hemoglobin at an adequate level. 4. Morbid obesity. 5. Atrial fibrillation and on chronic anticoagulation. RECOMMENDATIONS: 1. Continue management of bacteremia/sepsis as you are doing. 2. The patient is due for next dose of darbepoetin today and I will order 40 mcg subcutaneously x1 dose. She has been receiving this every 2 weeks on an outpatient basis. 3. Keep her [facility] once she is discharged from the hospital. 4. Continue management of right lower extremity ulcer as per wound care recommendations. BRIEF HISTORY: The patient is a 73-year-old female who was admitted to the hospital with increasing weakness and a fall at home. Initial workup at the emergency room was unremarkable, but blood cultures grew Streptococcus pyogenes. She also has a chronic right lower extremity ulcer with secondary bacterial infection and was on treatment for this through the wound care clinic. She was being [facility] for a chronic anemia, which was multifactorial. Initially, this was iron deficiency with the inability to tolerate oral iron. Iron replacement alone did not correct the anemia and the patient was found to have a chronic kidney disease stage III. Because of this, she was started on darbepoetin with some benefit and her hemoglobin was being maintained more than 10 grams per deciliter. Hematology consultation was requested for concurrent management of the anemia. PAST MEDICAL HISTORY: Significant for diabetes mellitus type 2 diagnosed in 2002. History of hypertension, hypercholesterolemia and osteoarthritis involving all major joints. She was using nonsteroidal anti-inflammatory agents, which caused renal dysfunction in the past. She had an early stage melanoma resected from the right shoulder in 2012 with no evidence of recurrent or metastatic disease. She gave a history of thrombophlebitis of the right lower extremity in 1989 as well as varicose veins and underwent an ablation in 2016. This followed by right lower extremity nonhealing ulcer and secondary bacterial infection for the past several months. Sleep apnea diagnosed in 1998 and is using CPAP. She was diagnosed with atrial fibrillation a few years ago and is on anticoagulation for stroke prophylaxis. PAST SURGICAL HISTORY: Include a tonsillectomy and adenoidectomy in childhood, cystoscopy in 2000, umbilical hernia repair and appendectomy in 2005, saphenous vein ablation of the right lower extremity in 2016. SOCIAL HISTORY: The patient is and was living in front of [place], [place]. She has three children, two sons and a daughter. One son lives in [place], [place] and her daughter lives in [place], [place]. One son lives close by. 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 Retired approximately seven years ago. She denied any tobacco or recreational drug use and uses alcohol socially averaging a few drinks a year. FAMILY HISTORY: Significant for a father who was diagnosed with colon cancer at the age of 56 years. Sister was diagnosed with breast cancer at the age of 52 years. Maternal grandfather was diagnosed with prostate cancer at an elderly age. No other malignancies or hematologic problems in the family. PHYSICAL EXAMINATION: GENERAL: Today showed an elderly female, obese, awake and oriented, weak appearing, in no acute distress. VITAL SIGNS: Temperature was 98.4, pulse rate of 71, respirations 18, blood pressure 150/69 with oxygen saturation of 97% using 2 liters of oxygen via the CPAP. HEENT: Normocephalic. Extraocular muscles intact, conjunctivae slightly pale, oral mucosa moist. NECK: Supple, with no JVD. No cervical, supraclavicular or axillary lymphadenopathy palpable. CHEST: Symmetrical. LUNGS: Fairly clear to auscultation without wheezes or rales. CARDIOVASCULAR: Regular with a few missed beats. No murmurs or gallops heard. ABDOMEN: Obese, soft, nontender with no hepatosplenomegaly or other masses palpable. EXTREMITIES: Showed trace edema both lower extremities. Right lower extremity dressing noted. NEUROLOGIC: Grossly intact without focal motor deficits. LABORATORY DATA: CBC done today showed WBC 13.7, hemoglobin 9.3, platelet count 142,000 with neutrophil count 12.3, lymphocyte count 0.6 and monocyte count 0.7. Chemistry panel done today showed relatively normal electrolytes. BUN was 19 and creatinine 0.92 with GFR of 60 mL per minute. Liver function studies were within normal limits except albumin level of 2.7. GFR has been between 45 to 57 previously. Blood culture from the right AC is growing Streptococcus pyogenes group A. Thank you for allowing me to participate in this patient's care. I will follow the patient with you and make appropriate recommendations. Job ID: [id number] DocumentID: [id number] Dictated Date: 06/25/2018 17:51:29 Art Director Date: 06/25/2018 18:38:54 Dictated By: ROSALEE CRENSHAW MD
[2018-06-25] MEDS: ATORVASTATIN 40 MG (LIPITOR) TABLET PO SCH (22:49)
[2018-06-25] MEDS: MONTELUKAST 10 MG (SINGULAIR) TAB PO SCH (22:49)
[2018-06-26 00:32] VITALS: BP 131/60
[2018-06-26 04:46] LABS: BASOPHILS % (AUTO) 0 % (0-10); EOSINOPHILS # (AUTO) 0.1 10^3/uL (0.0-0.3); EOSINOPHILS % (AUTO) 1 % (0-10); HEMATOCRIT 30 % (35-52); HEMOGLOBIN 9.3 G/DL (11.5-16.0); LYMPHOCYTES # (AUTO) 1.1 X 10^3 (1.0-4.0); LYMPHOCYTES % (AUTO) 10 % (12-44); MEAN CORPUSCULAR HEMOGLOBIN 30 PG (25-34); MEAN CORPUSCULAR HGB CONC 31 G/DL (32-36); MEAN CORPUSCULAR VOLUME 96 FL (80-99); MEAN PLATELET VOLUME 9.6 FL (7.4-10.4); MONOCYTES # (AUTO) 1.1 X 10^3 (0.0-1.0); MONOCYTES % (AUTO) 10 % (0-12); NEUTROPHILS # (AUTO) 8.2 X 10^3 (1.8-7.8); NEUTROPHILS % (AUTO) 78 % (42-75); PLATELET COUNT 157 10^3/uL (130-400); RED CELL DISTRIBUTION WIDTH 14.4 % (10.0-14.5); WHITE BLOOD COUNT 10.5 10^3/uL (4.3-11.0)
[2018-06-26 04:47] VITALS: BP 140/63
[2018-06-26 05:09] LABS: ALBUMIN 2.8 GM/DL (3.2-4.5); BILIRUBIN,TOTAL 0.4 MG/DL (0.1-1.0); CALCIUM 8.1 MG/DL (8.5-10.1); CREATININE SERUM 0.95 MG/DL (0.60-1.30); POTASSIUM 3.5 MMOL/L (3.6-5.0); TOTAL PROTEIN 5.6 GM/DL (6.4-8.2)
[2018-06-26] MEDS: inSUlin ASPART (NovoLOG) 1 UNIT/0.01 ML (CHARGE PER UNIT) SC SCH ×4 (06:13→21:18)
[2018-06-26] MEDS: KCL 10 MEQ TAB (MICRO K) PO SCH ×2 (06:13→09:57)
[2018-06-26] MEDS: FOLIC ACID 1 MG TAB PO SCH (06:13)
[2018-06-26 07:41] VITALS: BP 128/58
--- NOTE | 2018-06-26 08:02 | NUR ---
WHEN ASSESSING PT FOUND THAT R LOWER LEG ABOVE THE DSG WAS MORE SWOLLEN, RED AND WARM TO TOUCH ,, THE L LOWER LEG HAS SLT REDNESS AND SLT WARM TO TOUCH -- THIS RN CALLED DR COBOS TO ADVISE -- HE WILL SEE PT LATER TODAY
[2018-06-26] MEDS: RT-ADVAIR HFA 115/21 MCG PER PUFF IH SCH ×2 (08:47→19:59)
[2018-06-26] MEDS: FUROSEMIDE 40 MG (LASIX) TAB PO SCH (09:34)
[2018-06-26] MEDS: meTOproloL SUCCINATE 50 MG (TOPROL XL) TAB PO SCH (09:34)
[2018-06-26] MEDS: AMIODARONE 200 MG (CORDARONE) TAB PO SCH (09:34)
[2018-06-26] MEDS: APIXABAN 5 MG (ELIQUIS) TABLET PO SCH ×2 (09:34→19:53)
[2018-06-26] MEDS: FUROSEMIDE 20 MG (LASIX) TAB PO SCH (09:34)
[2018-06-26] MEDS: MAGNESIUM OXIDE (MAG-OX)400 MG TAB PO SCH (09:34)
[2018-06-26] MEDS: A & D OINT 60 GM TUBE TOP SCH ×2 (09:38→19:55)
--- NOTE | 2018-06-26 09:39 | Pulmonary Progress Note ---
Subjective Time Seen by a Provider: 09:38 Subjective/Events-last exam NO complications noted. Pt is working with PT/OT Sepsis Event Evaluation Height, Weight, BMI Height: 5'4.00" Weight: 355lbs. 4.8oz. 161.148172rx; 58.5 BMI Method:Stated Exam Exam Vital Signs Date Time Temp Pulse Resp B/P (MAP) Pulse Ox O2 Delivery O2 Flow Rate FiO2 06/26/18 08:47 96 Nasal Cannula 2.00 06/26/18 08:00 Nasal Cannula 3.00 06/26/18 07:41 98.8 77 18 128/58 (81) 93 NIV CPAP 2.00 06/26/18 04:47 98.2 72 20 140/63 (88) 97 NIV CPAP 2.00 06/26/18 00:32 99.1 81 20 131/60 (83) 93 NIV CPAP 2.00 06/25/18 21:43 98.7 85 18 130/62 (84) 94 NIV CPAP 2.00 06/25/18 21:30 88 NIV CPAP 2.00 06/25/18 20:00 Nasal Cannula 3.00 06/25/18 20:00 93 Room Air 06/25/18 16:05 98.4 71 18 150/69 (96) 97 NIV CPAP 2.00 06/25/18 11:59 98.9 71 18 139/63 (88) 93 Room Air 06/25/18 10:25 94 Nasal Cannula 2.00 06/25/18 10:23 94 NIV CPAP 2.00 I & O 06/26/18 07:00 Intake Total 1998 ml Output Total 3800 ml Balance -1802 ml Height & Weight Height: 5'4.00" Weight: 355lbs. 4.8oz. 161.177409jy; 58.5 BMI Method:Stated General Appearance: No Apparent Distress, WD/WN, Chronically ill, Obese HEENT: Normal ENT Inspection Neck: Normal Inspection Respiratory: Chest Non Tender, No Accessory Muscle Use, No Respiratory Distress , Crackles, Decreased Breath Sounds, Wheezing Cardiovascular: Irregularly Irregular Capillary Refill: Less Than 3 Seconds Peripheral Pulses: 2+ Radial Pulses (R), 2+ Radial Pulses (L) Gastrointestinal: normal bowel sounds, non tender, soft Extremity: Non Tender, No Calf Tenderness, Other (severe venous stasis dermatitis) Neurologic/Psychiatric: Alert, Oriented x3, quality assurance inspector II-XII Norm as Tested Skin: Other (right loeg in dressing) Results Lab Laboratory Tests 06/25/18 06:10 06/26/18 04:25 Assessment/Plan Assessment/Plan sepsis with nonhealing RLE wound -blood culture is +1/2 for Beta hemolytic strep -currently on Vanco Hx of asthma -SVNS Obesity with ADITI -CPAP therapy Hypokalemia -replace -check mg and phos Paroxysmal Afib -S/p cardioversion 01/2018 CP -Cardiology following LUIS SALOMON DO Jun 26, 2018 09:38
[2018-06-26 09:51] LABS: MAGNESIUM 1.4 MG/DL (1.8-2.4); PHOSPHORUS 1.7 MG/DL (2.3-4.7)
[2018-06-26] MEDS ORDERED: KCL 20 MEQ TAB (K-DUR) PO NR (10:00)
--- NOTE | 2018-06-26 10:46 | Progress Note-Hospitalist ---
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 She is morbidly obese with a BMI of 59.2. She had a period of treatment at a rehabilitation facility attempting to get her better back on her feet. She had been in the wound care clinic all of the fall. In February she was admitted here with atrial fibrillation and rapid ventricular response. She continues to struggle with open wound on her legs. She was admitted after she presented to the emergency room yesterday. This was precipitated by trying to get up out of her chair and feeling weak and ultimately sliding to the floor. She denied striking her head or any loss of consciousness. She presented to the emergency room and was felt to have sepsis most related to her cellulitis and open wounds. I had a phone call earlier this morning from bacteriology reporting growth on of cocci in chains most consistent with enterococcus/ pneumococcus. Subjective/Events-last exam Patient doing well today Bowels are moving Participating in all therapies to allow a screen for inpatient rehabilitation Denies any pain IV antibiotics maintained Reviewed labs Motivated to get better Wheezing is resolved Review of Systems General: Fatigue Objective Exam Vital Signs Vital Signs Date Time Temp Pulse Resp B/P (MAP) Pulse Ox O2 Delivery O2 Flow Rate FiO2 06/26/18 08:47 96 Nasal Cannula 2.00 06/26/18 07:41 98.8 77 18 128/58 (81) Capillary Refill : Less Than 3 Seconds General Appearance: No Apparent Distress, WD/WN, Chronically ill, Obese HEENT: Normal ENT Inspection Neck: Normal Inspection Respiratory: Chest Non Tender, Lungs Clear, Normal Breath Sounds, No Accessory Muscle Use, No Respiratory Distress Cardiovascular: Irregularly Irregular Gastrointestinal: Non Tender, Soft, Other (very large pannus) Rectal: Deferred Back: Normal Inspection, No CVA Tenderness, No Vertebral Tenderness Extremity: Non Tender, No Calf Tenderness, Other (severe venous stasis dermatitis) Neurologic/Psychiatric: Alert, Oriented x3, parts counter specialist II-XII Norm as Tested Skin: Other (right loeg in dressing) Results/Procedures Lab Laboratory Tests 06/26/18 04:25 Patient resulted labs reviewed. Assessment/Plan Assessment and Plan Assess & Plan/Chief Complaint Assessment: Sepsis due to Beta Strep septicemia Cellulitis on Vanc Fall Rhabdomyolysis Obesity ADITI on CPAP AF Plan: IV abx PT/OT Supportive care Dr Salgado appreciated Lary Alas and Nelsy are appreciated IRF tomorrow? Diagnosis/Problems Diagnosis/Problems (1) Beta-hemolytic group A streptococcal sepsis (2) Ulcers of both lower extremities Status: Acute Qualifiers: Non-pressure ulcer stage: with fat layer exposed Qualified Codes: L97.912 - Non-pressure chronic ulcer of unspecified part of right lower leg with fat layer exposed; L97.922 - Non-pressure chronic ulcer of unspecified part of left lower leg with fat layer exposed (3) Anemia Status: Chronic Qualifiers: Anemia type: unspecified type Qualified Codes: D64.9 - Anemia, unspecified (4) ADITI on CPAP Status: Chronic (5) Hypertension Status: Chronic Qualifiers: Hypertension type: essential hypertension Qualified Codes: I10 - Essential (primary) hypertension (6) Diabetes Status: Chronic Qualifiers: Diabetes mellitus type: type 2 Diabetes mellitus nursing home insulin use: with nursing home use Diabetes mellitus complication status: with circulatory complication Diabetes mellitus complication detail: with other circulatory complications Qualified Codes: E11.59 - Type 2 diabetes mellitus with other circulatory complications; Z79.4 - retirement (current) use of insulin (7) Wheezing Status: Acute (8) Asthma Status: Chronic Qualifiers: Asthma severity: moderate Asthma persistence: persistent Asthma complication type: with acute exacerbation Qualified Codes: J45.41 - Moderate persistent asthma with (acute) exacerbation (9) Hypotension Status: Resolved Qualifiers: Hypotension type: unspecified hypotension type Qualified Codes: I95.9 - Hypotension, unspecified Resolution Date/Time: 06/25/18 @ 20:17 (10) Arthritis Status: Chronic (11) Osteoporosis Status: Chronic Qualifiers: Osteoporosis type: unspecified Presence of current pathological fracture: unspecified Qualified Codes: M81.0 - Age-related osteoporosis without current pathological fracture (12) Obesity Status: Chronic Qualifiers: Obesity type: due to excess calories Obesity classification: adult class 3 (BMI >= 40) Serious obesity comorbidity presence: with serious comorbidity Body mass index: BMI 60.0-69.9 Qualified Codes: E66.01 - Morbid (severe) obesity due to excess calories; Z68.44 - Body mass index (bmi) 60.0-69.9, adult (13) Debility Status: Acute (14) Lymphedema Status: Chronic Clinical Quality Measures DVT/VTE Risk/Contraindication: Risk Factor Score Per Nursin RFS Level Per Nursing on Admit: 4+=Very High NELIA MCKEON DO Jun 26, 2018 10:46
--- NOTE | 2018-06-26 11:35 | Physical Therapy Daily Note ---
PT Daily Note-Current Subjective Patient in bed pre tx, agrees to PT, has 4/10 pain in right leg. Appearance Patient in chair at bedside post tx with nurse call, lana, all needs met. Dr. Salgado seeing patient. Mental Status Patient Orientation: Person, Place, Situation Attachments: Bello Catheter, IV Transfers Therapy Code Descriptions/Definitions Functional [place] Measure: 0=Not Assessed/NA 4=Minimal Assistance 1=Total Assistance 5=Supervision or Setup 2=Maximal Assistance 6=Modified [place] 3=Moderate Assistance 7=Complete [place] Therapy Quality Codes: 6 Independent with activity with or without an assistive device 5 Patient requires set up or clean up by helper. Patient completes activity by themselves 4 Supervision or touching assist (CGA). [place] provide cues , steadying assist 3 The helper provides less than half the effort to complete the activity 2 The helper provides more than half the effort to complete the activity 1 Dependent. The helper does all the effort to complete an activity 7 Patient refused to complete or attempt activity 9 The patient did not perform the activity before the current illness or injury 88 Not attempted due to Medical conditions or safety concerns Transfers (B, C, W/C) (FIM): 3 Scootin Rollin Supine to/from Sit: 3 Sit to/from Stand: 4 Bed to/from Chair: 4 Patient needs mod assist for supine to sit, min assist for sit to stand, CGA for transfers. Gait Training Gait (FIM): 1 Distance: 12' Gait Level of Assist: 4 Gait Persons Needed: 1 Gait Assistive Device: FWW Patient ambulates very slowly, steps inches at a time but no LOB. Exercises Seated Therapy Exercises: Ankle pumps, Long arc quads Seated Reps: 20 Treatments bed mobility and transfers, ambulation, functional strengthening Assessment Current Status: Fair Progress improved strength and endurance PT Short Term Goals Short Term Goals Time Frame: Jul 02, 2018 Transfers (B,C,W/C) (FIM): 4 Gait (FIM): 1 Gait Distance Comment: 20' Gait Level of Assist: 4 Gait Assistive Device: FWW PT Plan Problem List Problem List: Activity Tolerance, Functional Strength, Safety, Balance, Gait, Transfer, Bed Mobility, ROM Treatment/Plan Treatment Plan: Continue Plan of Care Treatment Plan: Bed Mobility, Education, Functional Activity Yimi, Functional Strength, Gait, Safety, Therapeutic Exercise, Transfers Treatment Duration: Jul 02, 2018 Frequency: 6 times per week Estimated Hrs Per Day: .25 hour per day (15-30') Patient and/or Family Agrees t: Yes Safety Risks/Education Patient Education: Gait Training, Transfer Techniques, Correct Positioning, Safety Issues Teaching Recipient: Patient Teaching Methods: Demonstration, Discussion Response to Teaching: Reinforcement Needed Time/GCodes Time In: 1100 Time Out: 1125 Total Billed Treatment Time: 25 Total Billed Treatment 1 visit FA 25' RICO QUEZADA PT Jun 26, 2018 11:35
--- NOTE | 2018-06-26 11:43 | Wound Care Assessment ---
Wound Care Assessment Date Seen by Provider: Jun 26, 2018 Time Seen by Provider: 11:42 Chief Complaint R calf ulcers. HPI The patient is a 73 year old female with complex ulceration of the R calf, long- standing, with combined arterial, venous, diabetic, and lymphedema etiologies. The patient has been admitted with sepsis, very likely related to wound infection arising in these calf ulcers. The bases are necrotic. The patient was in the midst of a long-delayed vascular evaluation, which she has postponed and cancelled on multiple occasions. She is urged to elevate her legs. Dakin' s dressings are ordered. The patient is on IV antibiotics. 06/26/18 -- Called to see re cellulitis of R calf. Past Medical History: Admits Diabetes Type II, Admits Heart Disease Smoking Status: Never a Smoker Recreational Drug Use: No Alcohol Use: Denies Use Exam Vital Signs Date Time Temp Pulse Resp B/P (MAP) Pulse Ox O2 Delivery O2 Flow Rate FiO2 06/26/18 08:47 96 Nasal Cannula 2.00 06/26/18 07:41 98.8 77 18 128/58 (81) Capillary Refill : Less Than 3 Seconds Results Laboratory Tests 06/25/18 16:05: Glucometer 116H 06/25/18 22:53: Glucometer 143H 06/26/18 04:25: White Blood Count 10.5, Red Blood Count 3.09L, Hemoglobin 9.3L, Hematocrit 30L, Mean Corpuscular Volume 96, Mean Corpuscular Hemoglobin 30, Mean Corpuscular Hemoglobin Concent 31L, Red Cell Distribution Width 14.4, Platelet Count 157, Mean Platelet Volume 9.6, Neutrophils (%) (Auto) 78H, Lymphocytes (%) (Auto) 10L , Monocytes (%) (Auto) 10, Eosinophils (%) (Auto) 1, Basophils (%) (Auto) 0, Neutrophils # (Auto) 8.2H, Lymphocytes # (Auto) 1.1, Monocytes # (Auto) 1.1H, Eosinophils # (Auto) 0.1, Basophils # (Auto) 0.0, Sodium Level 141, Potassium Level 3.5L, Chloride Level 110H, Carbon Dioxide Level 23, Anion Gap 8, Blood Urea Nitrogen 20H, Creatinine 0.95, Estimat Glomerular Filtration Rate 57, BUN/ Creatinine Ratio 21, Glucose Level 123H, Calcium Level 8.1L, Corrected Calcium 9.1, Phosphorus Level 1.7L, Magnesium Level 1.4L, Total Bilirubin 0.4, Aspartate Amino Transf (AST/SGOT) 24, Alanine Aminotransferase (ALT/SGPT) 20, Alkaline Phosphatase 115, Total Protein 5.6L, Albumin 2.8L 06/26/18 05:31: Glucometer 119H Microbiology 06/22/18 Blood Culture - Preliminary, Resulted No growth 06/22/18 Influenza Types A,B Antigen ([facility]) - Final, Complete 06/22/18 Urine Culture - Final, Complete NO GROWTH OLIVER COBOS MD Jun 26, 2018 11:42
[2018-06-26] MEDS: NS IV 1000 ML 1,000 ML IV SCH (12:09)
[2018-06-26] MEDS: ACETAMINOPHEN 500 MG TAB (TYLENOL) PO PRN (12:13)
[2018-06-26] MEDS ORDERED: TROUGH ORDER-PHARMACY XX NR (14:00)
--- NOTE | 2018-06-26 14:33 | Occupational Ther Daily Note ---
OT Current Status-Daily Note Subjective Pt.in recliner , alert, oriented, cooperative, in cheerful mood, agree for therapy . Pain Location: Right Location Body Site: Knee Pain Description: Throbbing Mental Status/Objective Patient Orientation: Person, Place, Time Therapy Code Descriptions/Definitions Functional [place] Measure: 0=Not Assessed/NA 4=Minimal Assistance 1=Total Assistance 5=Supervision or Setup 2=Maximal Assistance 6=Modified [place] 3=Moderate Assistance 7=Complete [place] Attachments: Central Line, IV, Saline Lock ADL-Treatment Pt participated in func bed mobility, func transfer , trunk mobility & strengthening ex to BUE .Pt completed 30 reps x 2 lbs with BUE flexion / extension of both elbow & shoulders, 30 reps using red theraband with BUE & 30 reps with Hand gripper to strengthen hand tiltrotor crew chief of both hands to participate in all self care tasks & to push up from recliner to stand up with FWW. Pt needs max A in sit to stand from recliner with fww , Patient Morbidly Obese & has Lymphedema . Pt walk 5-6 steps to the bed , turned around using walker , reached back & sat in bed. Pt sit to supine with max A to lift her both legs in bed. Very heavy legs due to Lymphedema . Positioned pt. properly in bed , raising both legs up to decrease swelling on both legs. Eating (FIM): 6 Transfers (B, C, W/C) (FIM): 2 Education OT Patient Education: Correct positioning Teaching Recipient: Patient Teaching Methods: Demonstration Response to Teaching: Verbalize Understanding OT Short Term Goals Short Term Goals Time Frame: Jul 09, 2018 Transfers (B,C,W/C) (FIM): 4 Additional Short Term Goals: 1-Demonstrate ADL Tasks, 2-Verbalize Understanding , 3-ImproveStrength/Yimi 1=Demonstrate adherence to instructed precautions during ADL tasks. 2=Patient will verbalize/demonstrate understanding of assistive devices/ modifications for ADL. 3=Patient will improve strength/tolerance for activity to enable patient to perform ADL's. OT Skilled Nursing Goals Steam Distribution Supervisor Goals Time Frame: July 23, 2018 Eating (FIM): 6 Grooming(FIM): 6 Bathing(FIM): 5 Bathing Location: L Arm, R Arm, L Upper Leg, R Upper Leg, L Lower Leg ( including foot), R Lower Leg (including foot), Chest, Abdomen Upper Body Dressing(FIM): 6 Lower Body Dressing(FIM): 6 Toileting(FIM): 6 Transfers (B,C,W/C) (FIM): 6 Toilet/Commode Transfer(FIM): 6 Tub Transfer(FIM): 0 Shower Transfer(FIM): 0 (Pt prefers sponge bath not a shower as per her statement.) Additional Goals: 1-Demonstrate ADL Tasks, 2-Verbalize Understanding, 3- ImproveStrength/Yimi 1=Demonstrate adherence to instructed precautions during ADL tasks. 2=Patient will verbalize/demonstrate understanding of assistive devices/ modifications for ADL. 3=Patient will improve strength/tolerance for activity to enable patient to perform ADL's. OT Education/Plan Problem List/Assessment Assessment: Decreased Activ Tolerance, Decreased Safety Aware, Decreased UE Strength, Dependent Transfers, Impaired Bed Mobility, Impaired Funct Balance, Impaired Self-Care Skills Discharge Recommendations Plan/Recommendations: Continue POC Therapy D/C Recommendations: Home Independently Equpiment Recommendations-D/C: Extended Bath Bench, Extended Shower Sprayer, Bore Mill Operator For Plastic Patient/Family Goals To return home Independently with AD. Treatment Plan/Plan of Care Treatment,Training & Education: Yes Patient would benefit from OT for education, treatment and training to promote independence in ADL's, mobility, safety and/or upper extremity function for ADL' s. Plan of Care: ADL Retraining, Functional Mobility, UE Funct Exercise/Act, UE Neuromus Re-Ed/Coord Treatment Duration: July 23, 2018 Frequency: 5 times per week Estimated Hrs Per Day: .5 hour per day Agreement: Yes Rehab Potential: Guarded Time/GCodes Start Time: 13:45 Stop Time: 14:11 Total Time Billed (hr/min): 26 Billed Treatment Time 1, FA 15 min , FA 11 min. Total 26 Minutes. ALFRED SEGUNDO OT Jun 26, 2018 14:33
[2018-06-26] MEDS: RT-ALBUTEROL SULF 2.5 MG/3 ML PRE-MIX VIAL INH PRN ×2 (15:01→20:04)
--- NOTE | 2018-06-26 15:14 | Cardiology Progress Note ---
Subjective Date Seen by Provider: Jun 26, 2018 Time Seen by Provider: 08:00 Subjective/Events-last exam patient is laying down in bed, feeling better, breathing better, still having generalized fatigue and weakness Review of Systems General: No Chills, No Night Sweats; Fatigue, Malaise; No Appetite, No Other HEENT: No Head Aches, No Visual Changes, No Eye Pain, No Ear Pain, No Dysphasia , No Sinus Congestion, No Post Nasal Drip, No Sore Throat, No Other Pulmonary: Dyspnea; No Cough, No Pleuritic Chest Pain, No Other Cardiovascular: Edema; No: Chest Pain, Palpitations, Orthopnea, Paroxysmal Noc. Dyspnea, Lt Headedness, Other Objective-Cardiology Exam Last Set of Vital Signs Vital Signs 06/26/18 06/26/18 06/26/18 07:41 12:45 15:05 Temp 98.8 Pulse 77 Resp 18 B/P (MAP) 128/58 (81) Pulse Ox 96 O2 Delivery Nasal Cannula O2 Flow Rate 2.00 Capillary Refill : Less Than 3 Seconds I&O Intake and Output 06/26/18 00:00 Intake Total 2148 ml Output Total 3450 ml Balance -1302 ml Intake Oral 1628 ml IV Total 520 ml Output Urine Total 3450 ml # Bowel Movements 1 General: Alert, Oriented X3, Cooperative HEENT: Atraumatic, PERRLA Neck: Supple, No JVD, No Thyromegaly Lungs: Clear to Auscultation, Normal Air Movement Heart: Regular Rate, Normal S1, Normal S2, Other (systolic murmur) Abdomen: Normal Bowel Sounds, Soft, No Tenderness, No Hepatosplenomegaly, No Masses Extremities: No Clubbing, No Cyanosis, Normal Pulses, No Tenderness/Swelling, Other (peripheral edema) Skin: No Rashes, No Breakdown, Other (nonhealing ulcer) Neuro: Normal Gait, Normal Speech, Strength at 5/5 X4 Ext, Normal Tone, Sensation Intact Psych/Mental Status: Mental Status NL, Mood NL Results Lab Laboratory Tests 06/26/18 04:25 A/P-Cardiology Admission Diagnosis Septicemia PAF HTN HLP Assessment/Plan Septicemia- Blood culture + for group A Strep. On IV antibiotic. Management per hospitalist Blood culture grew one bottle out of 3 with group A strep, receiving antibiotic. Continue to monitor, no signs of sepsis or endocarditis at this time. We'll consider doing CHRISTOS if bacteremia persisted Paroxysmal atrial fibrillation-History of CHRISTOS with successful cardioversion January 2018. She is maintained on amiodarone, Toprol and Eliquis. Continue to monitor. History of chest pain, no recent episodes of chest pain, however she has multiple risk factors for underlying coronary artery disease. Was scheduled for stress test as outpatient in January, but test was not done. Planning to reschedule at a later time. Nonhealing wound to RLE, follows with Dr. Salgado. Wound cx done in May 2018 revealed MSSA. Was treated as outpatient. CTA done Nov 2017 showed less than optimal as the aorta and its branches not optimally opacified. There was no hemodynamically significant stenosis identified but the trifurcation arteries were not well imaged. There appears to be only a single vessel (posterior tibial artery runoff to each lower extremity). Hypertension, controlled, continue to monitor blood pressure/heart rate Hyperlipidemia, monitored as outpatient Iron Deficiency Anemia, followed by Dr. Roblero and Dr. Gaines Diabetes mellitus, followed and managed by primary care physician. Bronchial asthma. COPD, obstructive sleep apnea using C Pap machine. Nonobstructive carotid artery stenosis-carotid duplex done Jan 2018. Continue to monitor. Clinical Quality Measures DVT/VTE Risk/Contraindication: Risk Factor Score Per Nursin RFS Level Per Nursing on Admit: 4+=Very High ARIANA BARROS MD Jun 26, 2018 15:14
[2018-06-26 16:03] VITALS: BP 142/63
[2018-06-26] MEDS: VANCOMYCIN 2000 MG/NS 500 ML IVPB IV SCH ×2 (16:11)
[2018-06-26] MEDS: MONTELUKAST 10 MG (SINGULAIR) TAB PO SCH (19:53)
[2018-06-26] MEDS: ATORVASTATIN 40 MG (LIPITOR) TABLET PO SCH (19:53)
[2018-06-27 00:27] VITALS: BP 122/70
[2018-06-27] MEDS: ACETAMINOPHEN 500 MG TAB (TYLENOL) PO PRN ×2 (00:30→06:38)
[2018-06-27] MEDS: NS IV 1000 ML 1,000 ML IV SCH (04:07)
[2018-06-27 05:12] LABS: ALANINE AMINOTRANSFERASE 19 U/L (0-55); ALBUMIN 2.7 GM/DL (3.2-4.5); ALKALINE PHOSPHATASE 111 U/L (40-136); BILIRUBIN,TOTAL 0.3 MG/DL (0.1-1.0); BUN/CREATININE RATIO 21; CARBON DIOXIDE 24 MMOL/L (21-32); CHLORIDE 111 MMOL/L (98-107); GFR ESTIMATED > 60; GLUCOSE 139 MG/DL (70-105); POTASSIUM 3.8 MMOL/L (3.6-5.0); SODIUM 141 MMOL/L (135-145); TOTAL PROTEIN 5.7 GM/DL (6.4-8.2)
[2018-06-27] MEDS: inSUlin ASPART (NovoLOG) 1 UNIT/0.01 ML (CHARGE PER UNIT) SC SCH (05:46)
[2018-06-27] MEDS: FOLIC ACID 1 MG TAB PO SCH (06:35)
[2018-06-27] MEDS: KCL 10 MEQ TAB (MICRO K) PO SCH (06:35)
[2018-06-27] MEDS: RT-ADVAIR HFA 115/21 MCG PER PUFF IH SCH (07:45)
[2018-06-27 08:00] VITALS: BP 136/61
[2018-06-27] MEDS: meTOproloL SUCCINATE 50 MG (TOPROL XL) TAB PO SCH (08:10)
[2018-06-27] MEDS: FUROSEMIDE 40 MG (LASIX) TAB PO SCH (08:10)
[2018-06-27] MEDS: AMIODARONE 200 MG (CORDARONE) TAB PO SCH (08:10)
[2018-06-27] MEDS: APIXABAN 5 MG (ELIQUIS) TABLET PO SCH (08:10)
[2018-06-27] MEDS: FUROSEMIDE 20 MG (LASIX) TAB PO SCH (08:10)
[2018-06-27] MEDS: A & D OINT 60 GM TUBE TOP SCH (08:10)
[2018-06-27] MEDS: MAGNESIUM OXIDE (MAG-OX)400 MG TAB PO SCH (08:10)
--- NOTE | 2018-06-27 08:43 | Cardiology Progress Note ---
Subjective Date Seen by Provider: Jun 27, 2018 Time Seen by Provider: 08:41 Subjective/Events-last exam Patient is in bed, still complaining of shortness of breath and fatigue Review of Systems General: No Chills, No Night Sweats; Fatigue, Malaise; No Appetite, No Other HEENT: No Head Aches, No Visual Changes, No Eye Pain, No Ear Pain, No Dysphasia , No Sinus Congestion, No Post Nasal Drip, No Sore Throat, No Other Pulmonary: Dyspnea, Cough; No Pleuritic Chest Pain, No Other Cardiovascular: Edema; No: Chest Pain, Palpitations, Orthopnea, Paroxysmal Noc. Dyspnea, Lt Headedness, Other Objective-Cardiology Exam Last Set of Vital Signs Vital Signs 06/27/18 08:00 Temp 98.7 Pulse 73 Resp 18 B/P (MAP) 136/61 (86) Pulse Ox 96 O2 Delivery NIV CPAP O2 Flow Rate 2.00 Capillary Refill : Less Than 3 Seconds I&O Intake and Output 06/27/18 00:00 Intake Total 3150 ml Output Total 4100 ml Balance -950 ml Intake Oral 1630 ml IV Total 1520 ml Output Urine Total 4100 ml General: Alert, Oriented X3, Cooperative HEENT: Atraumatic, PERRLA Neck: Supple, No JVD, No Thyromegaly Lungs: Normal Air Movement, Other (Ziggy wheezing) Heart: Regular Rate, Normal S1, Normal S2, Other (systolic murmur) Abdomen: Normal Bowel Sounds, Soft, No Tenderness, No Hepatosplenomegaly, No Masses Extremities: No Clubbing, No Cyanosis, Normal Pulses, No Tenderness/Swelling, Other (peripheral edema) Skin: No Rashes, No Breakdown, Other (nonhealing ulcer) Neuro: Normal Gait, Normal Speech, Strength at 5/5 X4 Ext, Normal Tone, Sensation Intact Psych/Mental Status: Mental Status NL, Mood NL Results Lab Laboratory Tests 06/27/18 04:15 A/P-Cardiology Admission Diagnosis Septicemia PAF HTN HLP Assessment/Plan Septicemia- Blood culture + for group A Strep. On IV antibiotic. Management per hospitalist Blood culture grew one bottle out of 3 with group A strep, receiving antibiotic. Continue to monitor, no signs of sepsis or endocarditis at this time. We'll consider doing CHRISTOS if bacteremia persisted, continue antibiotics and monitor Paroxysmal atrial fibrillation-History of CHRISTOS with successful cardioversion January 2018. She is maintained on amiodarone, Toprol and Eliquis. Continue to monitor. History of chest pain, no recent episodes of chest pain, however she has multiple risk factors for underlying coronary artery disease. Was scheduled for stress test as outpatient in January, but test was not done. Planning to reschedule at a later time. Nonhealing wound to RLE, follows with Dr. Salgado. Wound cx done in May 2018 revealed MSSA. Was treated as outpatient. CTA done Nov 2017 showed less than optimal as the aorta and its branches not optimally opacified. There was no hemodynamically significant stenosis identified but the trifurcation arteries were not well imaged. There appears to be only a single vessel (posterior tibial artery runoff to each lower extremity). Hypertension, controlled, continue to monitor blood pressure/heart rate Hyperlipidemia, monitored as outpatient Iron Deficiency Anemia, followed by Dr. Roblero and Dr. Gaines Diabetes mellitus, followed and managed by primary care physician. Bronchial asthma. COPD, obstructive sleep apnea using C Pap machine. Nonobstructive carotid artery stenosis-carotid duplex done Jan 2018. Continue to monitor. Clinical Quality Measures DVT/VTE Risk/Contraindication: Risk Factor Score Per Nursin RFS Level Per Nursing on Admit: 4+=Very High ARIANA BARROS MD Jun 27, 2018 08:43
--- NOTE | 2018-06-27 09:46 | Discharge Summary-Hospitalist ---
Diagnosis/Chief Complaint Date of Admission Jun 22, 2018 at 15:05 Date of Discharge Discharge Date: Jun 27, 2018 Discharge Diagnosis (1) Beta-hemolytic group A streptococcal sepsis Status: Acute (2) Ulcers of both lower extremities Status: Acute (3) Anemia Status: Chronic (4) ADITI on CPAP Status: Chronic (5) Hypertension Status: Chronic (6) Diabetes Status: Chronic (7) Wheezing Status: Acute (8) Asthma Status: Chronic (9) Hypotension Status: Resolved (10) Arthritis Status: Chronic (11) Osteoporosis Status: Chronic (12) Obesity Status: Chronic (13) Debility Status: Acute (14) Lymphedema Status: Chronic Discharge Summary Discharge Physical Exam Allergies: Coded Allergies: NSAIDS (Non-Steroidal Anti-Inflamma (Verified Allergy, Severe, BLOOD IN URINE, 06/23/18) celecoxib (Unverified Allergy, Severe, BLOOD IN URINE, 06/23/18) penicillin G (Verified Allergy, Unknown, HAS RECEIVED ANCEF W/O ISSUE, ) Vitals & I&Os Vital Signs Date Time Temp Pulse Resp B/P (MAP) Pulse Ox O2 Delivery O2 Flow Rate FiO2 06/27/18 09:55 96 Nasal Cannula 2.00 06/27/18 09:55 73 18 136/61 06/27/18 08:00 98.7 General Appearance: No Apparent Distress, WD/WN Respiratory: Crackles, Decreased Breath Sounds, Wheezing Neurologic/Psychiatric: Alert, Oriented x3, No Motor/Sensory Deficits, Normal Mood/Affect Hospital Course Was the Problem List Reviewed?: Yes Hospital course: Patient had a lengthy hospital course due to sepsis from severely infected chronic ulcers of the lower extremities. She does have history of chronic lymphedema. She was restarted on all home medications including nebulizer treatments for asthma. Blood cultures revealed beta strep so antibiotics were narrowed to vancomycin. Renal insufficiency resolved with IV fluids and patient was in need of inpatient rehabilitation for lengthy recovery due to severe debility. We will maintain Bello catheter until she is settled in in inpatient rehabilitation and provide incontinence care. All meds were reviewed and all deemed correct and will be continued in inpatient rehabilitation. Labs (last 24 hrs) Laboratory Tests 06/26/18 11:02: Glucometer 138H 06/26/18 14:10: Vancomycin Level Trough 17.4 06/26/18 16:06: Glucometer 114H 06/26/18 20:11: Glucometer 121H 06/27/18 04:15: Sodium Level 141, Potassium Level 3.8, Chloride Level 111H, Carbon Dioxide Level 24, Anion Gap 6, Blood Urea Nitrogen 19H, Creatinine 0.90, Estimat Glomerular Filtration Rate > 60, BUN/Creatinine Ratio 21, Glucose Level 139H, Calcium Level 8.0L, Corrected Calcium 9.0, Total Bilirubin 0.3, Aspartate Amino Transf (AST/SGOT) 22, Alanine Aminotransferase (ALT/SGPT) 19, Alkaline Phosphatase 111, Total Protein 5.7L, Albumin 2.7L Microbiology 06/22/18 Blood Culture - Preliminary, Resulted No growth 06/22/18 Influenza Types A,B Antigen (ASHOK) - Final, Complete 06/22/18 Urine Culture - Final, Complete NO GROWTH Patient resulted labs reviewed. Pending Labs Laboratory Tests 06/27/18 04:15: Sodium Level 141, Potassium Level 3.8, Chloride Level 111, Carbon Dioxide Level 24, Anion Gap 6, Blood Urea Nitrogen 19, Creatinine 0.90, Estimat Glomerular Filtration Rate > 60, BUN/Creatinine Ratio 21, Glucose Level 139, Calcium Level 8.0, Corrected Calcium 9.0, Total Bilirubin 0.3, Aspartate Amino Transf (AST/ SGOT) 22, Alanine Aminotransferase (ALT/SGPT) 19, Alkaline Phosphatase 111, Total Protein 5.7, Albumin 2.7 Discussion & Recommendations Discharge Planning: <30 minutes discharge planning Discharge Home Medications: Active Scripts Active Reported Injectafer (Ferric Carboxymaltose) 750 Mg/15 Ml Vial 250 Ml IV UD RECEIVED 1 DOSE 06-18-18 AND DUE FOR ONE MORE DOSE 05-25-18 Aranesp (Darbepoetin Felice in [place]ysorbat) 40 Mcg/1 Ml Vial 35 Mcg IV EVERY 2 WEEKS Metoprolol Succinate 50 Mg Tab.er.24h 50 Mg PO DAILY Amiodarone HCl 200 Mg Tablet 200 Mg PO DAILY Tramadol HCl 50 Mg Tablet 50-100 Mg PO Q6H PRN Calcium Carbonate 600 Mg Tablet 600 Mg PO DAILY Eliquis (Apixaban) 5 Mg Tablet 5 Mg PO BID Magnesium Citrate 125 Mg Capsule 250 Mg PO HS TAKES 2 (125MG) CAPSULES Potassium Chloride 10 Meq Tablet.er 10 Meq PO DAILY Furosemide 40 Mg Tablet 60 Mg PO DAILY TAKES 1 & 1/2 (40MG) TABLET Ventolin Hfa (Albuterol Sulfate) 18 Gm Hfa.aer.ad 2 Puff INH Q4H PRN Advair 250-50 Diskus (Fluticasone/Salmeterol) 1 Each Blst.w.dev 1 Puff INH BID Tylenol Extra Strength (Acetaminophen) 500 Mg Tablet 1,000 Mg PO Q4H PRN Atorvastatin Calcium 40 Mg Tablet 40 Mg PO HS Montelukast Sodium 10 Mg Tablet 10 Mg PO HS Vitamin D3 (Cholecalciferol (Vitamin D3)) 2,000 Unit Capsule 2,000 Unit PO DAILY Vitamin C (Ascorbate Calcium) 500 Mg Tablet 500 Mg PO DAILY Folic Acid 1 Mg Tablet 1 Mg PO DAILY Vitamin B-12 (Cyanocobalamin) 100 Mcg Tablet 200 Mcg PO DAILY Instructions to patient/family Please see electronic discharge instructions given to patient. Clinical Quality Measures DVT/VTE Risk/Contraindication: Risk Factor Score Per Nursin RFS Level Per Nursing on Admit: 4+=Very High Problem Qualifiers (1) Ulcers of both lower extremities: Non-pressure ulcer stage: with fat layer exposed Qualified Codes: L97.912 - Non-pressure chronic ulcer of unspecified part of right lower leg with fat layer exposed; L97.922 - Non-pressure chronic ulcer of unspecified part of left lower leg with fat layer exposed (2) Anemia: Anemia type: unspecified type Qualified Codes: D64.9 - Anemia, unspecified (3) Hypertension: Hypertension type: essential hypertension Qualified Codes: I10 - Essential ( primary) hypertension (4) Diabetes: Diabetes mellitus type: type 2 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 Diabetes mellitus complication status: with circulatory complication Diabetes mellitus complication detail: with other circulatory complications Qualified Codes: E11.59 - Type 2 diabetes mellitus with other circulatory complications; Z79.4 - termite control technician (current) use of insulin (5) Asthma: Asthma severity: moderate Asthma persistence: persistent Asthma complication type: with acute exacerbation Qualified Codes: J45.41 - Moderate persistent asthma with (acute) exacerbation (6) Hypotension: Hypotension type: unspecified hypotension type Qualified Codes: I95.9 - Hypotension, unspecified (7) Osteoporosis: Osteoporosis type: unspecified Presence of current pathological fracture: unspecified Qualified Codes: M81.0 - Age-related osteoporosis without current pathological fracture (8) Obesity: Obesity type: due to excess calories Obesity classification: adult class 3 ( BMI >= 40) Serious obesity comorbidity presence: with serious comorbidity Body mass index: BMI 60.0-69.9 Qualified Codes: E66.01 - Morbid (severe) obesity due to excess calories; Z68.44 - Body mass index (bmi) 60.0-69.9, adult NELIA MCKEON DO Jun 27, 2018 09:46
--- NOTE | 2018-06-27 09:54 | NUR ---
REPORT CALLED TO GLENDA PAULINO ON ARU.
[2018-06-27 09:55] VITALS: BP 136/61
[2018-06-27] MEDS: RT-ALBUTEROL SULF 2.5 MG/3 ML PRE-MIX VIAL INH PRN (09:55)
--- NOTE | 2018-06-27 09:55 | NUR ---
PATIENT TRANSFERED TO ARU WITH CATHETER AND O2 AT 2L. AMBULATORY WITH GAIT BELT AND WALKER AND WHEELCHAIR BEHIND. ACCOMPANIED BY STAFF.
== END 2018-06-27 09:55 | DRG 872 ==
LOC: EDUNIT# 12:57 → ER 12:58 → 4TH 15:05 → UNDOADMIN 15:05
PROVIDERS: ADMIT Family Medicine; ATTEND Family Medicine
DX: A40.0 Sepsis due to streptococcus, group A (principal); L03.115 Cellulitis of right lower limb; Z68.43 Body mass index [BMI] 50.0-59.9, adult; L97.212 Non-pressure chronic ulcer of right calf with fat layer exposed; T79.6XXA Traumatic ischemia of muscle, initial encounter; J45.41 Moderate persistent asthma with (acute) exacerbation; L97.222 Non-pressure chronic ulcer of left calf with fat layer exposed; G47.33 Obstructive sleep apnea (adult) (pediatric); E66.01 Morbid (severe) obesity due to excess calories; I89.0 Lymphedema, not elsewhere classified; E11.622 Type 2 diabetes mellitus with other skin ulcer; I87.2 Venous insufficiency (chronic) (peripheral); I48.0 Paroxysmal atrial fibrillation; E78.00 Pure hypercholesterolemia, unspecified; I12.9 Hypertensive chronic kidney disease with stage 1 through stage 4 chronic kidney disease, or unspecified chronic kidney disease; E87.6 Hypokalemia; N18.3 Chronic kidney disease, stage 3 (moderate); M81.0 Age-related osteoporosis without current pathological fracture; M54.9 Dorsalgia, unspecified; R40.2410 Glasgow coma scale score 13-15, unspecified time; R53.81 Other malaise; D50.9 Iron deficiency anemia, unspecified; E11.59 Type 2 diabetes mellitus with other circulatory complications; W07.XXXA Fall from chair, initial encounter; Y92.009 Unspecified place in unspecified non-institutional (private) residence as the place of occurrence of the external cause; Z79.01 Long term (current) use of anticoagulants; Z85.820 Personal history of malignant melanoma of skin; Z88.0 Allergy status to penicillin; Z79.4 Long term (current) use of insulin
CPT/HCPCS: 36415; 51702; 70450; 71045; 80053; 80202; 81000; 82550; 82962; 83605; 83735; 83880; 84100; 85007; 85025; 85027; 85610; 85730; 87040; 87088; 87186; 87804; 94640; 94760; 96361; 96365; 96367

== ENCOUNTER 2018-06-27 08:51 | Inpatient (IN) | payer MEDICARE ==
[~2018-06-27] VITALS: Ht 162.6 cm; Wt 128.4 kg
[~2018-06-27 08:51] MED LIST changes: -CYAN100T PO; +CYAN100T3 PO; +DARB40VI IV; +DOXY100C2 PO; +FERR750V IV; +METO-370 PO
--- NOTE | 2018-06-27 10:30 | NUR ---
Arnol Diaz admitted to room 229-1, with an admitting diagnosis of Leg pain and cellulitus , on 06/27/18 from 4th floor Medical Surgical Unit via wheelchair, accompanied by staff. ARNOL DIAZ introduced to surroundings, call light, bed controls, phone, TV, temperature control, lights, meal times, smoking policy, visitor policy, side rail policy, bathrooms and showers. Patient Rights given to patient in the handbook.ARNOL DIAZ verbalizes understanding that [facility] is not responsible for the loss or damage to any personal effects or valuables that are kept in the patients possession during their hospitalization. The following Patient Care Plans were discussed with the patient: Discharge Planning, Impaired Mobility, Cellulitis, Diabetes. ARNOL DIAZ verbalizes understanding of Interdisciplinary Patient Education. Patient and/or family were informed about the Rapid Response Team and its purpose.
[2018-06-27] MEDS ORDERED: ONDANSETRON 4 MG (ZOFRAN) ORAL DISSOLVE TAB PO PRN (11:00)
[2018-06-27] MEDS ORDERED: DOCUSATE SODIUM 100 MG (COLACE) CAP PO PRN (11:00)
[2018-06-27] MEDS: inSUlin ASPART (NovoLOG) 1 UNIT/0.01 ML (CHARGE PER UNIT) SC SCH ×3 (11:00→22:04)
[2018-06-27] MEDS ORDERED: MELATONIN 3 MG TABLET PO PRN (11:00)
[2018-06-27] MEDS ORDERED: ONDANSETRON 4 MG/2 ML (SDV) Z0FRAN IV PRN (11:00)
[2018-06-27] MEDS ORDERED: KETOROLAC 15 MG/ML VIAL IVP PRN (11:00)
[2018-06-27] MEDS ORDERED: CALCIUM CARBONATE 500 MG (TUMS) TAB.CHEW PO PRN (11:00)
[2018-06-27] MEDS ORDERED: LOPERAMIDE 2 MG (IMODIUM) CAP PO PRN (11:00)
[2018-06-27] MEDS ORDERED: diphenhydrAMINE 25 MG TAB (BENADRYL) PO PRN (11:00)
[2018-06-27 11:10] VITALS: BP 132/71
--- NOTE | 2018-06-27 11:36 | Physical Therapy Evaluation ---
PT Evaluation-General Medical Diagnosis Admission Date Jun 27, 2018 at 09:55 Medical Diagnosis: sepsis Onset Date: Jun 22, 2018 Therapy Diagnosis Therapy Diagnosis: generalized weakness/debility Height/Weight Height (Feet): 5 Height (Inches): 4.00 Weight (Pounds): 155 Weight (Ounces): 0.8 Precautions Precautions/Isolations: Standard Precautions Weight Bear Status Right Lower Extremity: Right Full Weight Bearing Left Lower Extremity: Left Full Weight Bearing Referral Physician: [place] Reason for Referral: Evaluation/Treatment Medical History Pertinent Medical History: Atrial Fib, DM, HTN Additional Medical History sleep apnea (Cpap) Current History Transfer to ARU secondary to debility from sepsis/cellulitis right LE Reviewed History: Yes Social History Home: Single Level Current Living Status: Alone Entry Into Home: Ramp Prior/Core [facility] Prior Level of Function Therapy Code Descriptions/Definitions Functional [place] Measure: 0=Not Assessed/NA 4=Minimal Assistance 1=Total Assistance 5=Supervision or Setup 2=Maximal Assistance 6=Modified [place] 3=Moderate Assistance 7=Complete [place] Therapy Quality Codes: 6 Independent with activity with or without an assistive device 5 Patient requires set up or clean up by helper. Patient completes activity by themselves 4 Supervision or touching assist (CGA). Export provide cues , steadying assist 3 The helper provides less than half the effort to complete the activity 2 The helper provides more than half the effort to complete the activity 1 Dependent. The helper does all the effort to complete an activity 7 Patient refused to complete or attempt activity 9 The patient did not perform the activity before the current illness or injury 88 Not attempted due to Medical conditions or safety concerns Functional Abilities and Goals: Independent: Patient completed the activities by him/herself, with or without an assistive device, with no assistance from a helper. Needed Some Help: Patient needed partial assistance from another person to complete activities. Dependent: A helper completed the activities for the patient. Unknown: Not Applicable: Bed Mobility: 6 Transfers (B,C,W/C) (FIM): 6 Gait: 2 Stairs: 1 Indoor Mobility (Ambulation): Independent Stairs: Not Applicalbe Prior Devices Use: Walker PT Evaluation-Current Subjective Patient agrees to PT. Pain Numeric Pain Scale: 5-Moderate Pain Location: Right Location Body Site: Calf Pain Description: Acute Pt/Family Goals return to home Objective Patient Orientation: Normal For Age Problem Solving: Good Attachments: Oxygen, Bello Catheter ROM/Strength ROM Lower Extremities bilateral LE limited due to morbid obesity and edema Strenght Lower Extremities 3+/5 grossly bilateral LE Integumentary/Posture Integumentary refer to nursing notes Bladder Incontinence: Bello Cath Posture trunk flexed posture Neuromuscular (Tone, Coordination, Reflexes) grossly intact Sensory Vision: Wears Glasses Hearing: Functional Sensation Right Lower Extremit: Impaired Sensation Left Lower Extremity: Impaired Transfers Therapy Code Descriptions/Definitions Functional [place] Measure: 0=Not Assessed/NA 4=Minimal Assistance 1=Total Assistance 5=Supervision or Setup 2=Maximal Assistance 6=Modified [place] 3=Moderate Assistance 7=Complete [place] Therapy Quality Codes: 6 Independent with activity with or without an assistive device 5 Patient requires set up or clean up by helper. Patient completes activity by themselves 4 Supervision or touching assist (CGA). Export provide cues , steadying assist 3 The helper provides less than half the effort to complete the activity 2 The helper provides more than half the effort to complete the activity 1 Dependent. The helper does all the effort to complete an activity 7 Patient refused to complete or attempt activity 9 The patient did not perform the activity before the current illness or injury 88 Not attempted due to Medical conditions or safety concerns Transfers (B, C, W/C) (FIM): 2 Scootin Rollin Roll Left to Right (QC): 3 Supine to/from Sit: 2 Sit to/from Stand: 3 bed t/f WC(FIM only if WC use): 3 Sit to Lying (QC): 2 Lying to Sitting/Side of Bed(Q: 2 Sit to Stand (QC): 3 Chair/Rqo-ki-Bvupg Xfer(QC): 3 Car Transfer (QC): 3 Gait Does the Patient Walk?: Yes Mode of Locomotion: Both Anticipated Mode of Locomotion: Both Gait (FIM): 2 Distance (FIM): 7=912-22 ft Walk 10 feet (QC): 4 Walk 50 ft with 2 Turns(QC): 4 Walk 150 ft (QC): 9 Walking 10ft/uneven surface-QC: 4 Distance: 60' x 4 Gait Level of Assist: 4 Gait Persons Needed: 1 Gait Assistive Device: FWW Comments/Gait Description trunk flexed posture with FWW use/patient ambulates short distances only PLOF per her report Wheelchair Training Does the Pt Use a Wheelchair?: No Stairs Stairs (FIM): 1 #of Steps: 1 Level of Assist: 3 1 Step (curb) (QC): 3 4 Steps (QC): 9 Assistive Device: Walker 12 Steps (QC): 9 Balance Sitting Static: Normal Sitting Dynamic: Normal Standing Static: Fair Standing Dynamic: Fair Treatment Gait training with FWW minimal assist x 60' x 4 with slow, shuffle gait sequence and frequent standing recovery periods due to mild SOA with O2 3L NC with activity. Assessment/Needs 73 y.o. female, will benefit from skilled PT to address pulmonary function, strengthening and functional mobility to improve current LOF and to safely return to home at maximum LOF. Rehab Potential: Fair Post Rehab Potential-Barriers: morbid obesity PT Mcfp Goals Clearing Supervisor Goals PT Mcfp Goals Time Frame: Jul 19, 2018 Transfers (B,C,W/C) (FIM): 6 Sit to Lying (QC): 6 Lying-Sitting on Side/Bed(QC): 6 Sit to Stand (QC): 6 Rollin Roll Left to Right (QC): 6 Chair/Wzj-vk-Yjlug Xfer(QC): 6 Car Transfer (QC): 6 Does the Patient Walk: Yes Gait (FIM): 2 Gait distance (FIM): 2=776-30 ft Distance: 100' Walk 10 feet (QC): 6 Walk 10ft-Uneven Surface(QC): 6 Walk 50ft with 2 Turns (QC): 6 Walk 150 ft (QC): 9 Gait Level of Assist: 6 Gait Assistive Device: FWW # of Steps: 1 1 Step (curb) (QC): 5 4 Steps (QC): 9 12 Steps (QC): 9 Stairs Level Of Assist: 5 Picking up an Object (QC): 5 PT Plan Problem List Problem List: Activity Tolerance, Functional Strength, Safety, Balance, Gait, Transfer, Bed Mobility, ROM Treatment/Plan Treatment Plan: Continue Plan of Care Treatment Plan: Bed Mobility, Education, Functional Activity Yimi, Functional Strength, Group Therapy, Gait, Safety, Therapeutic Exercise, Transfers Treatment Duration: Jul 19, 2018 Frequency: At least 5 of 7 days/Wk (IRF) Estimated Hrs Per Day: 1.5 hours per day Patient and/or Family Agrees t: Yes Discharge Recommendations Therapy D/C Recommendations: Home Independently, Physical Therapy Home Care Time/GCodes Time In: 955 Time Out: 1055 Total Billed Treatment Time: 60 Total Billed Treatment 1 visit EVHighC 35 min GT x 2 25 min KWASI DISLA PT Jun 27, 2018 11:36
--- NOTE | 2018-06-27 12:52 | Occupational Therapy Eval ---
OT Evaluation-General/PLF Medical Diagnosis Admission Date Jun 27, 2018 at 09:55 Medical Diagnosis: sepsis Onset Date: Jun 22, 2018 Therapy Diagnosis Therapy Diagnosis: Weakness, Debility Height/Weight Height (Feet): 5 Height (Inches): 4.00 Weight (Pounds): 155 Weight (Ounces): 0.8 Precautions Precautions/Isolations: Standard Precautions Weight Bear Status Weight Bearing Restriction: Full Weight Bearing Location Restriction: L LE, R LE Referral Physician: [place] Referral Reason: Activity Tolerance, Self Care, Evaluation/Treatment, Strengthening/ROM Medical History Pertinent Medical History: Atrial Fib, DM, HTN Additional Medical History Sleep Apnea Current History Transfer to ARU due to marked increase of weakness & Debility from Sepsis/ Cellulitis Rt LE. Reviewed History: Yes Social History Home: Single Level Current Living Status: Alone Entry Into Home: Ramp ADL-Prior Level of Function Therapy Code Descriptions/Definitions Functional [place] Measure: 0=Not Assessed/NA 4=Minimal Assistance 1=Total Assistance 5=Supervision or Setup 2=Maximal Assistance 6=Modified [place] 3=Moderate Assistance 7=Complete [place] Therapy Quality Codes: 6 Independent with activity with or without an assistive device 5 Patient requires set up or clean up by helper. Patient completes activity by themselves 4 Supervision or touching assist (CGA). [place] provide cues , steadying assist 3 The helper provides less than half the effort to complete the activity 2 The helper provides more than half the effort to complete the activity 1 Dependent. The helper does all the effort to complete an activity 7 Patient refused to complete or attempt activity 9 The patient did not perform the activity before the current illness or injury 88 Not attempted due to Medical conditions or safety concerns Functional Abilities and Goals: Independent: Patient completed the activities by him/herself, with or without an assistive device, with no assistance from a helper. Needed Some Help: Patient needed partial assistance from another person to complete activities. Dependent: A helper completed the activities for the patient. Unknown: Not Applicable: ADL PLOF Comments Pt was requiring CGA in UB , LB Dressing, Max A in toilet hygiene as pt could' nt reach back due to morbidly Obesity , max A in shower . Pt has Lymphedema Rt LE. MS in BUE 06/27 .. Self Care: Needed Some Help Functional Cognition: Independent DME/Equipment: Bath Bench, Grab Bars, Reachers, Shower Hose Lost And Found Clerk, Toilet/ [address] Self: No OT Current Status Subjective Pt in bed , alert, oriented, cooperative & agree for Therapy . Pain Location: No Pain Reported Mental Status/Objective Patient Orientation: Person, Place, Time Attachments: Bello Catheter, IV, Oxygen, Saline Lock, SCD's Current Glasses/Contacts: Yes Hearing Aids: No Dentures/Partials: No Hand Dominance: Right Upper Extremity ROM ROM in Both Shoulder flexion 0-80 * due to weakness Upper Extremity Coordination Intact Upper Extremity Sensation Intact Upper Extremity Strength MS in BUE -4/5 grossly graded. ADL-Treatment ADL-Current Pt did'nt take shower as per physician's order due to wound on Rt leg due to Lymphedema. Pt participated in Sponge-bath . Pt wipes face, neck, around neck , hairs , chest, Upper Extremity with SBA , needs max A to wipe back of trunk . 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 Pt walk with fww to the restroom fro toilet under supervision . Needs max A in toilet hygiene as pt cannot reach back due to morbid Obesity. Pt walk back to bed & participated in strengthening Ex to BUE . Eating (FIM): 6 Eating (QC): 6 Grooming (FIM): 5 Oral Hygiene (QC): 5 Bathing (FIM): 4 (Sponge-bath using warm Wipes of " READY-BATH.") Bathing Location: L Arm, R Arm, Chest, Abdomen Shower/Bathe Self (QC): 0 Upper Body Dressing (FIM): 4 Upper Body Dressing (QC): 4 Lower Body Dressing (FIM): 0 (Pt wears Hospital gown .) Lower Body Dressing (QC): 0 On/Off Footwear (QC): 0 Toileting (FIM): 6 Toileting Hygiene (QC): 2 Transfers (B, C, W/C) (FIM): 3 Toilet/Commode Transfer (FIM): 3 Toilet Transfer (QC): 3 Tub Transfer (FIM): 0 Shower Transfer (FIM): 0 Education OT Patient Education: Correct positioning, Safety issues Teaching Recipient: Patient Teaching Methods: Demonstration Response to Teaching: Verbalize Understanding OT Short Term Goals Short Term Goals Time Frame: Jul 11, 2018 Additional Short Term Goals: 1-Demonstrate ADL Tasks, 2-Verbalize Understanding , 3-ImproveStrength/Yimi 1=Demonstrate adherence to instructed precautions during ADL tasks. 2=Patient will verbalize/demonstrate understanding of assistive devices/ modifications for ADL. 3=Patient will improve strength/tolerance for activity to enable patient to perform ADL's. OT Social Director Goals Social Director Goals Time Frame: July 25, 2018 Eating (FIM): 6 Eating (QC): 6 Groomin Oral Hygiene (QC): 6 Bathing(FIM): 6 Bathing Location: L Arm, R Arm, L Upper Leg, R Upper Leg, L Lower Leg ( including foot), R Lower Leg (including foot), Chest, Abdomen, Buttocks, Perineal Area Shower/Bathe Self (QC): 6 Upper Body Dressing(FIM): 6 Upper Body Dressing (QC): 6 Lower Body Dressing(FIM): 6 Lower Body Dressing (QC): 6 On/Off Footwear (QC): 6 Toileting(FIM): 6 Toileting Hygiene (QC): 6 Transfers (B,C,W/C) (FIM): 6 Toilet/Commode Transfer(FIM): 6 Toilet/Commode Transfer (QC): 6 Tub Transfer(FIM): 4 Shower Transfer(FIM): 6 Additional Goals: 1-Demonstrate ADL Tasks, 2-Verbalize Understanding, 3- ImproveStrength/Yimi 1=Demonstrate adherence to instructed precautions during ADL tasks. 2=Patient will verbalize/demonstrate understanding of assistive devices/ modifications for ADL. 3=Patient will improve strength/tolerance for activity to enable patient to perform ADL's. OT Education/Plan Problem List/Assessment Assessment: Decreased Activ Tolerance, Decreased Safety Aware, Decreased UE Strength, Dependent Transfers, Impaired Bed Mobility, Impaired Funct Balance, Impaired Self-Care Skills Discharge Recommendations Plan/Recommendations: Continue POC Therapy D/C Recommendations: Home Independently Equpiment Recommendations-D/C: Extended Bath Bench, Toilet Riser with Rails, Extended Shower Sprayer, Cotton Cleaner Patient/Family Goals To return home with modified independence with AD. Treatment Plan/Plan of Care Treatment,Training & Education: Yes Patient would benefit from OT for education, treatment and training to promote independence in ADL's, mobility, safety and/or upper extremity function for ADL' s. Plan of Care: ADL Retraining, Functional Mobility, Group Exercise/Act as Ind, UE Funct Exercise/Act, UE Neuromus Re-Ed/Coord Treatment Duration: July 25, 2018 Frequency: 5 times per week Estimated Hrs Per Day: 1.5 hours per day Agreement: Yes Rehab Potential: Good Time/GCodes Start Time: 11:00 Stop Time: 12:30 Total Time Billed (hr/min): 90 Billed Treatment Time 1, ADL 60 min, FA, 15 min, Ex 15 min. Total 90 minutes ALFRED SEGUNDO OT Jun 27, 2018 12:52
--- NOTE | 2018-06-27 12:57 | NUR ---
REVIEWED MED REC IT WAS REPORTED UPON ADMISSION TO 4TH FLOOR.
--- NOTE | 2018-06-27 13:38 | Physical Therapy Daily Note ---
PT Daily Note-Current Subjective Patient sitting EOB pre tx, agrees to PT, has 6/10 pain in right leg. Appearance Patient in bed post tx with nurse call, phone, tray, all needs met. Mental Status Patient Orientation: Person, Place, Situation Attachments: Bello Catheter Transfers Therapy Code Descriptions/Definitions Functional [place] Measure: 0=Not Assessed/NA 4=Minimal Assistance 1=Total Assistance 5=Supervision or Setup 2=Maximal Assistance 6=Modified [place] 3=Moderate Assistance 7=Complete [place] Therapy Quality Codes: 6 Independent with activity with or without an assistive device 5 Patient requires set up or clean up by helper. Patient completes activity by themselves 4 Supervision or touching assist (CGA). [place] provide cues , steadying assist 3 The helper provides less than half the effort to complete the activity 2 The helper provides more than half the effort to complete the activity 1 Dependent. The helper does all the effort to complete an activity 7 Patient refused to complete or attempt activity 9 The patient did not perform the activity before the current illness or injury 88 Not attempted due to Medical conditions or safety concerns Transfers (B, C, W/C) (FIM): 2 Scootin Rollin Supine to/from Sit: 2 Sit to/from Stand: 4 Bed to/from Chair: 4 Patient needed max assist for sit to supine, min assist with sit to stand Weight Bearing Right Lower Extremity: Right Full Weight Bearing Left Lower Extremity: Left Full Weight Bearing Gait Training Gait (FIM): 2 Distance: 100'x2 Gait Level of Assist: 4 Gait Persons Needed: 1 Gait Assistive Device: FWW Slow ambulation, wide SHIRA, slumped posture. Treatments bed mobility and transfers, ambulation Assessment Current Status: Fair Progress improving endurance PT Rubber Molder Goals Rubber Molder Goals PT Penitentiary Goals Time Frame: Jul 19, 2018 Transfers (B,C,W/C) (FIM): 6 Sit to Lying (QC): 6 Lying-Sitting on Side/Bed(QC): 6 Sit to Stand (QC): 6 Rollin Roll Left to Right (QC): 6 Chair/Ddz-hy-Oizsp Xfer(QC): 6 Car Transfer (QC): 6 Does the Patient Walk: Yes Gait (FIM): 2 Gait distance (FIM): 0=713-81 ft Distance: 100' Walk 10 feet (QC): 6 Walk 10ft-Uneven Surface(QC): 6 Walk 50ft with 2 Turns (QC): 6 Walk 150 ft (QC): 9 Gait Level of Assist: 6 Gait Assistive Device: FWW # of Steps: 1 1 Step (curb) (QC): 5 4 Steps (QC): 9 12 Steps (QC): 9 Stairs Level Of Assist: 5 Picking up an Object (QC): 5 PT Plan Problem List Problem List: Activity Tolerance, Functional Strength, Safety, Balance, Gait, Transfer, Bed Mobility, ROM Treatment/Plan Treatment Plan: Continue Plan of Care Treatment Plan: Bed Mobility, Education, Functional Activity Yimi, Functional Strength, Group Therapy, Gait, Safety, Therapeutic Exercise, Transfers Treatment Duration: Jul 19, 2018 Frequency: At least 5 of 7 days/Wk (IRF) Estimated Hrs Per Day: 1.5 hours per day Patient and/or Family Agrees t: Yes Safety Risks/Education Patient Education: Gait Training, Transfer Techniques, Correct Positioning, Safety Issues Teaching Recipient: Patient Teaching Methods: Demonstration, Discussion Response to Teaching: Reinforcement Needed Time/GCodes Time In: 1300 Time Out: 1330 Total Billed Treatment Time: 30 Total Billed Treatment 1 visit GT 30' RICO QUEZADA PT Jun 27, 2018 13:38
--- NOTE | 2018-06-27 13:57 | NUR ---
CARBON PAPER COATING SUPERVISOR met with patient to complete initial assessment. Patient was alert and oriented x4 and agreeable to assessment. CARBON PAPER COATING SUPERVISOR is familiar with patient she previously completed ARU stay in November 2017 due to debility. Upon discharge from ARU, patient admitted to [facility] for additional skilled services, she then discharged home on March 06, 2018. Patient resides alone in a single level home in [place], [place]. The home has a ramp at the entrance of the garage that is primarily utilized. Patient admitted to ARU home with debility. Prior to hospitalization , patient reports a sudden physical decline. Dependent upon daily function, she would either utilize a FWW, 4WW, SPC or quad cane. The home has been modified with tall toilets, grab bars and adjustable bed to prolong patients ability to maintain independence within the home. Patient also has a walk in shower with a small step into shower with a built in shower chair. Patient was receiving [facility] on [facility]els through [facility]. Patient does inquire about Medicare coverage for hospital bed due to Dr. Salgado's recommendation for wound management. CARBON PAPER COATING SUPERVISOR will review medical record to determine if patient will qualify for coverage; however, patient is agreeable to renting if needed. Patient identifies son, Rudi ([phone]) and friend, Sumeet ([phone]) as contacts. Verified PCP as Dr. Liu Roblero. Patient also sees Dr. Salgado and Dr. Troncoso. Patient has MCR and BCBS supplement and prefers [facility] pharmacy. CARBON PAPER COATING SUPERVISOR reviewed typical rehab length of stay and weekly team conferences with patient, she expressed no concerns. CARBON PAPER COATING SUPERVISOR will follow for appropriate discharge needs.
--- NOTE | 2018-06-27 14:38 | ST Cognitive Linguistic Eval ---
Speech Evaluation-General Medical Diagnosis sepsis Onset Date: Jun 22, 2018 Therapy Diagnosis Therapy Diagnosis: Cognitive-communication Precautions Precautions/Isolations: Standard Precautions Referral Referring Physician: Dr. Kate Reason for Referral: Evaluation/Treatment Medical History Pertinent Medical History: Atrial Fib, DM, HTN Reviewed History: Yes Social History Current Living Status: Alone Speech PLF-Current Status Prior Level of Function The patient lived alone and was independent for all of her daily needs. She has family close by for support. Subjective The patient was pleasant and cooperative with cognition testing. Language Eval: Auditory Comprehends Simple Yes/No Ques: Functional Indent/Objects Multiple Segura: Functional Ident/Pics in Multiple Segura: Functional Follows 1-Step Commands: Functional Follows Complex Directions: Functional Follows General Conversations: Functional Language Eval: Verbal Language Completes Spontaneous Greeting: Functional Produces Auto, Serial Info: Functional Imitates Simple Words/Phrases: Functional Word Finding: Functional Requests Basic Needs: Functional States Basic Personal Info: Functional Expresses Complex Ideas: Functional Objective Cognitive Domain Attention: WNL Memory: WNL Problem Solving: Functional Executive Functions: WNL Visuospatial Skills: WNL Composite Severity Rating: WNL Clock Drawing Severity Rating: WNL Objective Formal/Standardized Tests [place] Cognitive Assessment (MOCA) Results Visual/Executive: 5/5, Namin/3, Memory: Immediate 5/5, Delayed 5/5, Attention 6/6, Language: 2/2, Abstraction: 2/2, Orientation:6/6 Oral Motor/Speech Production Within Functional Limits Impression The patient is a pleasant 73 year old female who was admitted to the ARU due to debility. The patient was seen at bedside for cognitive testing. Results of the testing indicate she is within functional limits for all areas tested. The patient does not require skilled ST services at this time. Communication/Social Cognition Comprehension: 7 Expression: 7 Social Interaction: 7 Problem Solvin Memory: 7 Speech Patient Assess Expression of Ideas/Wants: Expression (4) Understanding Verbal Content: Understands (4) Brief Interview-Mental Status: Yes Repetition of Three Words: Three (3) Temporal Orientation: Year: Correct (3) Temporal Orientation: Month: Accurate within 5 days(2) Temporal Orientation: Day: Correct (1) Recall : Wear to say "Sock": Yes, no cue required (2) Recall : Color: Yes, no cue required (2) Recall : Bed: Yes, no cue required (2) Memory/Recall Ability: Current season, Location of own room, Staff names and faces, That he or she is in a hsp/hsp unit Speech-Plan Patient/Family Goals Patient/Family Goals: The patient plans to return home where she lives alone. She has family near for support as needed. Treatment Plan Speech Therapy Treatment Plan: Discontinue ST The patient does not require skilled ST services at this time. Treatment Duration: Jun 27, 2018 Frequency: 1 time per week Estimated Hrs Per Day: .25 hour per day Rehab Potential: Good Barriers to Learning: None identified Pt/Family Agrees to Plan: Yes Safety Risks/Education Teaching Recipient: Patient Teaching Methods: Discussion Response to Teaching: Verbalize Understanding Education Topics Provided: Safety within her room. Time Speech Therapy Time In: 14:00 Speech Therapy Time Out: 14:15 Total Billed Time: 15 Billed Treatment Time 1, SPSNDRIZWAN Garcia Jun 27, 2018 14:38
[2018-06-27] MEDS: VANCOMYCIN INJECTION 2,000 MG in NS IV 500 ML 500 ML IV SCH (15:24)
[2018-06-27] MEDS: ACETAMINOPHEN 500 MG TAB (TYLENOL) PO PRN (15:33)
[2018-06-27 15:42] VITALS: BP 137/67
[2018-06-27] MEDS: RT-ALBUTEROL SULF 2.5 MG/3 ML PRE-MIX VIAL INH PRN (20:31)
[2018-06-27] MEDS: ATORVASTATIN 40 MG (LIPITOR) TABLET PO SCH (20:33)
[2018-06-27] MEDS: MONTELUKAST 10 MG (SINGULAIR) TAB PO SCH (20:33)
[2018-06-27] MEDS: APIXABAN 5 MG (ELIQUIS) TABLET PO SCH (20:34)
[2018-06-27] MEDS: A & D OINT 60 GM TUBE TOP SCH (20:36)
[2018-06-27] MEDS: RT-ADVAIR HFA 115/21 MCG PER PUFF IH SCH (21:33)
[2018-06-28] MEDS: ACETAMINOPHEN 500 MG TAB (TYLENOL) PO PRN ×4 (00:13→23:43)
[2018-06-28 05:19] LABS: BASOPHILS % (AUTO) 0 % (0-10); EOSINOPHILS # (AUTO) 0.2 10^3/uL (0.0-0.3); EOSINOPHILS % (AUTO) 2 % (0-10); HEMATOCRIT 29 % (35-52); HEMOGLOBIN 9.1 G/DL (11.5-16.0); LYMPHOCYTES # (AUTO) 1.3 X 10^3 (1.0-4.0); LYMPHOCYTES % (AUTO) 16 % (12-44); MEAN CORPUSCULAR HEMOGLOBIN 30 PG (25-34); MEAN CORPUSCULAR HGB CONC 31 G/DL (32-36); MEAN CORPUSCULAR VOLUME 96 FL (80-99); MEAN PLATELET VOLUME 9.3 FL (7.4-10.4); MONOCYTES # (AUTO) 0.7 X 10^3 (0.0-1.0); MONOCYTES % (AUTO) 9 % (0-12); NEUTROPHILS # (AUTO) 5.7 X 10^3 (1.8-7.8); NEUTROPHILS % (AUTO) 72 % (42-75); PLATELET COUNT 232 10^3/uL (130-400); RED CELL DISTRIBUTION WIDTH 14.5 % (10.0-14.5); WHITE BLOOD COUNT 7.9 10^3/uL (4.3-11.0)
[2018-06-28 05:44] LABS: ALBUMIN 2.8 GM/DL (3.2-4.5); BILIRUBIN,TOTAL 0.3 MG/DL (0.1-1.0); CALCIUM 8.1 MG/DL (8.5-10.1); CREATININE SERUM 0.96 MG/DL (0.60-1.30); POTASSIUM 3.7 MMOL/L (3.6-5.0); TOTAL PROTEIN 5.7 GM/DL (6.4-8.2)
[2018-06-28 06:00] VITALS: BP 151/72
[2018-06-28] MEDS: inSUlin ASPART (NovoLOG) 1 UNIT/0.01 ML (CHARGE PER UNIT) SC SCH ×4 (06:10→21:00)
[2018-06-28] MEDS: KCL 10 MEQ TAB (MICRO K) PO SCH (06:55)
[2018-06-28] MEDS: FOLIC ACID 1 MG TAB PO SCH (06:57)
--- NOTE | 2018-06-28 06:59 | PM&R H&P / Post Admit Assess ---
History of Present Illness HPI/Chief Complaint CC: Debility requiring IRF HPI: This is a 73yoWF clinic patient of Dr Roblero who has multiple medical issues who was admitted to IRF last fall after a debility episode following an acute medical illness and subsequently went to the prison for a several weeks and then went home the end of February once her home was modified and had been doing well until she was admitted to 4th floor with sepsis and acute exacerbation of asthma and the source was the lower extremity ulcers that caused beta Strep septicemia so the ulcers have been managed by Dr Salgado and patient was placed on Vancomycin and will complete that Saturday. Her PLOF was independent at home and currently she is 1-2 person assist. Barriers to returning home alone will be ambulating and ability to perform ADL's which due to habitus will require a estimated 14 days stay. Her asthma responds to her ICS inhaler along with Neb treatments and the catheter will be removed since IVF have been NH'ed and incontinence care will be provided. Source: patient, RN/MD, old records Exam Limitations: no limitations Date Seen 06/27/18 Time Seen by a Provider: 09:30 Attending Physician Danielle Mckeon DO PCP Liu Roblero MD Referring Physician Date of Admission Jun 27, 2018 at 09:55 Home Medications & Allergies Home Medications Reviewed patient Home Medication Reconciliation performed by pharmacy medication reconciliations sterile technician and/or nursing. Patients Allergies have been reviewed. 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) Alcohol Use: Denies Use Recreational Drug Use: No Smoking Status: Never a Smoker 2nd Hand Smoke Exposure: No Physical Abuse Screen: No Sexual Abuse: No Recent Foreign Travel: No Contact w/other who traveled: No Recent Hopitalizations: Yes (REHAB) Recent Infectious Disease Expo: No Immunizations Up To Date Tetanus Booster (TDap): Unknown Date of Influenza Vaccine: Dec 24, 2017 Seasonal Allergies Seasonal Allergies: No Past Medical History Respiratory: Asthma, Sleep Apnea Currently Using CPAP: Yes Currently Using BIPAP: No Cardiac: Atrial Fibrillation, High Cholesterol, Hypertension Sexually Transmitted Disease: No HIV/AIDS: No Female Reproductive Disorders: Denies Genitourinary: Bladder Infection Gastrointestinal: Hiatal Hernia Musculoskeletal: Arthritis Endocrine: Diabetes, Non-Insulin dep Are Your Blood Sugars Over 250: No Hearing Impairment: Denies Cancer: Melanoma Did You Recieve Any Treatments: No History of Blood Disorders: No Adverse Reaction to Blood Hernández: No Family History Dementia 19 MOTHER Diabetes mellitus G8 SISTER Myocardial infarction 19 FATHER Neoplasm G8 SISTER No Pertinent Family Hx, Heart Disease a-fib in siblings Review of Systems Constitutional: see HPI, malaise, weakness EENTM: no symptoms reported Respiratory: cough, wheezing Cardiovascular: no symptoms reported Gastrointestinal: loss of appetite Genitourinary: no symptoms reported Musculoskeletal: back pain, joint pain Skin: see HPI Psychiatric/Neurological: No Symptoms Reported All Other Systems Reviewed Negative Unless Noted: Yes Physical Exam Exam Vital Signs Vital Signs Date Time Temp Pulse Resp B/P (MAP) Pulse Ox O2 Delivery O2 Flow Rate FiO2 06/28/18 06:00 97.8 71 16 151/72 (98) 95 Nasal Cannula 2.00 Capillary Refill : General Appearance: No Apparent Distress, WD/WN, Chronically ill, Obese HEENT: PERRL/EOMI, Normal ENT Inspection, Pharynx Normal, Moist Mucous Membranes Neck: Full Range of Motion, Normal Inspection, Non Tender, Supple Respiratory: Chest Non Tender, No Accessory Muscle Use, No Respiratory Distress , Wheezing Cardiovascular: No Gallop, No JVD, No Murmur, Irregularly Irregular Gastrointestinal: Normal Bowel Sounds, No Organomegaly, No Pulsatile Mass, Non Tender, Soft Back: Normal Inspection, No CVA Tenderness, No Vertebral Tenderness Extremity: Normal Capillary Refill, Normal Inspection, Normal Range of Motion, Non Tender, No Calf Tenderness, Pedal Edema Neurologic/Psychiatric: Alert, Oriented x3, No Motor/Sensory Deficits, Normal Mood/Affect, nuclear reactor engineer II-XII Norm as Tested, Abnormal Gait, Motor Weakness (4/5 all extremities) Skin: Normal Color, Warm/Dry, Other (right lower leg dressing intact over ulceration) Lymphatic: No Adenopathy Results Results/Procedures Labs Laboratory Tests 06/28/18 04:20 Patient resulted labs reviewed. Assessment/Plan Assessment and Plan Assess & Plan/Chief Complaint (1) Beta-hemolytic group A streptococcal sepsis Status: Acute (2) Ulcers of both lower extremities Status: Acute (3) Anemia Status: Chronic (4) ADITI on CPAP Status: Chronic (5) Hypertension Status: Chronic (6) Diabetes Status: Chronic (7) Wheezing Status: Acute (8) Asthma Status: Chronic (9) Hypotension Status: Resolved (10) Arthritis Status: Chronic (11) Osteoporosis Status: Chronic (12) Obesity Status: Chronic (13) Debility Status: Acute (14) Lymphedema Status: Chronic Plan: IRF protocol Home meds Nebs NH Bello Ambulate with assistance Safety education to prevent falls Patient will return home at NH (1) Debility (2) Osteoporosis (3) Arthritis (4) Lymphedema (5) Wheezing (6) Obesity (7) Asthma (8) ADITI on CPAP (9) Anemia (10) Diabetes (11) Hypertension (12) Hypotension Resolution Date/Time: 06/25/18 @ 20:17 (13) Ulcers of both lower extremities (14) Beta-hemolytic group A streptococcal sepsis Post Admission Physician Asses Date seen by provider: Jun 27, 2018 Time seen by provider: 09:30 The preadmission screen agrees with the post admission assessment that the patient is a good candidate for inpatient rehabilitation. The patient will have a comprehensive program of inpatient rehabilitation with a goal of maximizing level of functional independence prior to discharge home. The patient will have PT/OT ninety minutes per day, each discipline, five days a week for gait, strengthening, conditioning, balance, ADLs, any patient/ family/caregiver training as necessary. Speech therapy to do cognitive assessment and treat as indicated. Rehabilitation nursing to assist with bowel, bladder, skin, wound care, medication administration, pain management. Welfare Interviewer to assist with discharge planning, community reentry. SCD's for DVT prophylaxis. She appears to be well motivated to participate in three hours of therapy a day. She should be able to tolerate three hours of therapy a day from a medical standpoint. She should benefit from the three hours of therapy a day. She has a reasonable discharge plan, reasonable discharge rehabilitation goals and a supportive family. She has various comorbidities that need to be closely monitored with medications and treatments adjusted on a daily basis as needed. These include: see above list Barriers to discharge for this patient who had been independent prior to this are for her to be modified independent to supervision for ADLs and mobility skills prior to discharge home with [family], so as to lessen the burden of the caregivers. Risks for this patient include: 1. Fall 2. Fracture 3. DVT 4. Pulmonary embolism 5. Wound infection 6. Skin breakdown 7. Contractures 8. Poorly controlled pain 9. Urinary retention 10. UTI 11. Respiratory infection 12. Aspiration Estimated Length of Stay: 14 days Prognosis: Rehab prognosis appears good for goal of discharge home modified independent to supervision for ADLs and mobility skills. DANIELLE MCKEON DO Jun 28, 2018 06:58
[2018-06-28] MEDS: RT-ADVAIR HFA 115/21 MCG PER PUFF IH SCH ×2 (07:50→20:53)
[2018-06-28] MEDS: RT-ALBUTEROL SULF 2.5 MG/3 ML PRE-MIX VIAL INH PRN ×2 (07:50→17:14)
[2018-06-28] MEDS: MAGNESIUM OXIDE (MAG-OX)400 MG TAB PO SCH (09:01)
[2018-06-28 09:09] VITALS: BP 130/60
[2018-06-28] MEDS: AMIODARONE 200 MG (CORDARONE) TAB PO SCH (09:18)
[2018-06-28] MEDS: FUROSEMIDE 40 MG (LASIX) TAB PO SCH (09:18)
[2018-06-28] MEDS: FUROSEMIDE 20 MG (LASIX) TAB PO SCH (09:19)
[2018-06-28] MEDS: APIXABAN 5 MG (ELIQUIS) TABLET PO SCH ×2 (09:19→21:31)
[2018-06-28] MEDS: meTOproloL SUCCINATE 50 MG (TOPROL XL) TAB PO SCH (09:19)
[2018-06-28] MEDS: A & D OINT 60 GM TUBE TOP SCH ×2 (09:28→21:35)
[2018-06-28] MEDS: DAKIN'S 1/4 STRENGTH (0.125%) 473 ML BTL TOP SCH (09:45)
--- NOTE | 2018-06-28 11:19 | PM&R Progress Note ---
Subjective HPI/CC On Admission Date Seen by Provider: Jun 28, 2018 Time Seen by Provider: 11:00 CC: Debility requiring IRF HPI: This is a 73yoWF clinic patient of Dr Roblero who has multiple medical issues who was admitted to IRF last fall after a debility episode following an acute medical illness and subsequently went to the penitentiary for a several weeks and then went home the end of February once her home was modified and had been doing well until she was admitted to 4th floor with sepsis and acute exacerbation of asthma and the source was the lower extremity ulcers that caused beta Strep septicemia so the ulcers have been managed by Dr Salgado and patient was placed on Vancomycin and will complete that Saturday. Her PLOF was independent at home and currently she is 1-2 person assist. Barriers to returning home alone will be ambulating and ability to perform ADL's which due to habitus will require a estimated 14 days stay. Her asthma responds to her ICS inhaler along with Neb treatments and the catheter will be removed since IVF have been AK'ed and incontinence care will be provided. Subjective/Events-last exam Patient doing very well today Per dissipating in therapy and ambulated a few feet Overall progressing and feels really good about being here in inpatient rehabilitation unit prior to going home Will discontinue catheter today Bowels are moving well yesterday Checked meds and labs All lab stable on check today Wearing C Pap at night Weaning oxygen since she does not use that at home Checked meds Review of Systems General: Fatigue Neurological: Weakness Objective Exam Vital Signs Vital Signs Date Time Temp Pulse Resp B/P (MAP) Pulse Ox O2 Delivery O2 Flow Rate FiO2 06/28/18 09:09 98.4 69 20 130/60 (83) 97 Nasal Cannula 2.00 06/28/18 07:53 28 Capillary Refill : General Appearance: No Apparent Distress, WD/WN, Chronically ill, Obese HEENT: PERRL/EOMI, Normal ENT Inspection, Pharynx Normal, Moist Mucous Membranes Neck: Full Range of Motion, Normal Inspection, Non Tender, Supple Respiratory: Chest Non Tender, No Accessory Muscle Use, No Respiratory Distress , Wheezing Cardiovascular: No Gallop, No JVD, No Murmur, Irregularly Irregular Gastrointestinal: Normal Bowel Sounds, No Organomegaly, No Pulsatile Mass, Non Tender, Soft Back: Normal Inspection, No CVA Tenderness, No Vertebral Tenderness Extremity: Normal Capillary Refill, Normal Inspection, Normal Range of Motion, Non Tender, No Calf Tenderness, Pedal Edema Neurologic/Psychiatric: Alert, Oriented x3, No Motor/Sensory Deficits, Normal Mood/Affect, spindle tester II-XII Norm as Tested, Abnormal Gait, Motor Weakness (4/5 all extremities) Skin: Normal Color, Warm/Dry, Other (right lower leg dressing intact over ulceration) Lymphatic: No Adenopathy Results/Procedures Lab Laboratory Tests 06/28/18 04:20 Patient resulted labs reviewed. Assessment/Plan Assessment and Plan Assess & Plan/Chief Complaint (1) Beta-hemolytic group A streptococcal sepsis Status: Acute (2) Ulcers of both lower extremities Status: Acute (3) Anemia Status: Chronic (4) ADITI on CPAP Status: Chronic (5) Hypertension Status: Chronic (6) Diabetes Status: Chronic (7) Wheezing Status: Acute (8) Asthma Status: Chronic (9) Hypotension Status: Resolved (10) Arthritis Status: Chronic (11) Osteoporosis Status: Chronic (12) Obesity Status: Chronic (13) Debility Status: Acute (14) Lymphedema Status: Chronic Plan: IRF protocol Home meds Nebs to continue Wean O2 gradually DC Bello today Ambulate with assistance Safety education to prevent falls Patient will return home at DC (1) Debility (2) Osteoporosis (3) Arthritis (4) Lymphedema (5) Wheezing (6) Obesity (7) Asthma (8) ADITI on CPAP (9) Anemia (10) Diabetes (11) Hypertension (12) Hypotension Resolution Date/Time: 06/25/18 @ 20:17 (13) Ulcers of both lower extremities (14) Beta-hemolytic group A streptococcal sepsis Clinical Quality Measures DVT/VTE Risk/Contraindication: Risk Factor Score Per Nursin RFS Level Per Nursing on Admit: 4+=Very High NELIA MCKEON DO Jun 28, 2018 11:19
--- NOTE | 2018-06-28 11:19 | Individualized Plan of Care ---
Individualized Plan of Care Rehab Nursing IPOC Order Admission Date Jun 27, 2018 at 09:55 Current Orders Orders Admission Order(Inpt,Obs,Sdc) (06/27/18 09:47) Vital Signs: Routine (Order) 08,16,00 (06/27/18 09:47) Strategic Planning Specialist-Inpt Rehab Con (06/27/18 09:47) Rehab Nursing Orders-Ipoc (06/27/18 09:47) Physical Therapy Rehab Orders (06/27/18 09:47) Occupational Therapy Rehab Ord (06/27/18 09:47) Speech Therapy Rehab Orders (06/27/18 09:47) Intake & Output 06,14,22 (06/27/18 09:47) Precautions (Aru) (06/27/18 09:47) Weekly Weight (Lbs) WEEK (06/27/18 09:47) Rehab-Intensity Of Therapy (06/27/18 09:47) Code/Resuscitation (06/27/18 09:47) Initiate Admission Nursing Pro .admission (06/27/18 09:47) Admission Arrival Bed Request (06/27/18 09:55) Code/Resuscitation (06/27/18 10:58) Accucheck Achs ACHS (06/27/18 10:58) Activity As Ordered (06/27/18 10:58) Advanced Wound Care Dressing O BID PRN (06/27/18 10:58) Ambulate 08,12,20 (06/27/18 10:58) Initiate Admission Nursing Pro .admission (06/27/18 10:58) Intake & Output 06,14,22 (06/27/18 10:58) Notify Physician (06/27/18 10:58) Nursing Communication (Order) UD (06/27/18 10:58) Up To Chair (Order) TID (06/27/18 10:58) Vital Signs: Every 4 Hours (Or (06/27/18 10:58) Acetaminophen Tablet (Tylenol Tablet) (06/27/18 11:00) Albuterol Pre-Mix Nebs (Rt) (Proventil (06/27/18 11:00) Amiodarone Tablet (Cordarone Tablet) (06/28/18 09:00) Apixaban Tablet (Eliquis Tablet) (06/27/18 21:00) Atorvastatin Tablet (Lipitor) (06/27/18 21:00) Fluticasone/Salmeterol Common (Advair 11 (06/27/18 20:00) Folic Acid Tablet (Folic Acid Tablet) (06/28/18 07:00) Furosemide Tablet (Lasix Tablet) (06/28/18 09:00) Furosemide Tablet (Lasix Tablet) (06/28/18 09:00) Ketorolac Injection (Toradol Injection) (06/27/18 11:00) Magnesium Oxide Tablet (Mag Ox Tablet) (06/28/18 08:00) Montelukast Tablet (Singulair Tablet) (06/27/18 21:00) Ondansetron Injection (Zofran Injectio (06/27/18 11:00) Potassium Chloride (Tablet) (Klor Con Ta (06/28/18 07:00) Sodium Hypochlorite 0.125% Bianca (Dakin's (06/27/18 11:00) Vancomycin Injection (Vancomycin Injecti (06/27/18 15:00) Vitamin A & D Ointment (A & D Ointment) (06/27/18 21:00) Insulin Aspart (Novolog) (Novolog (Charg (06/27/18 11:00) Metoprolol Succinate (Xl) Tab (Toprol Xl (06/28/18 09:00) Tramadol Tablet (Ultram Tablet) (06/27/18 11:00) Consult Physician (06/27/18 10:58) Consult Wound Care Physician (06/27/18 10:58) Mat Initiate Protocol (06/27/18 10:58) Rt Request For Service (06/27/18 10:58) Svn Small Volume Nebulizer (06/27/18 10:58) Svn Small Volume Nebulizer (06/27/18 10:58) Mdi Treatment (06/27/18 10:58) Diphenhydramine Tablet (Benadryl Tablet) (06/27/18 11:00) Calcium Carbonate Chew Tablet (Antacid C (06/27/18 11:00) Docusate Sodium Capsule (Colace Capsule) (06/27/18 11:00) Loperamide Capsule (Imodium Capsule) (06/27/18 11:00) Melatonin Tablet (Melatonin Tablet) (06/27/18 11:00) Ondansetron Oral Dissolve Tab (Zofran (06/27/18 11:00) Cbc With Automated Diff (06/28/18 06:00) Comprehensive Metabolic Panel (06/28/18 06:00) Patient Visit (06/27/18 ) Pt Eval High Complexity (06/27/18 ) Gait Training, Ea 15 Min (06/27/18 ) Cho 60g/M 3snack (16-2000 Prieto) (06/27/18 Lunch) Patient Visit (06/27/18 ) Gait Training, Ea 15 Min (06/27/18 ) Patient Visit (06/27/18 ) Speech Sound Lang Comp (06/27/18 ) Patient Visit (06/28/18 ) Gait Training, Ea 15 Min (06/28/18 ) Rehab Nursing Orders: Ongoing Assess. of Function Status, Bladder Management, Bladder Scan, Bladder Training, Bowel Management, Disease Management & Educaiton , DVT Prophylaxis, Fall Prevention, Fluid/Electrolyte/Nutrition Mgmt, Infection Prevention, Medication Management & Education, Management of Risks & Complications, Management of Skin Intergrity, Pain Management, Patient/Family Support, Safety Management, Wound Management Intensity of Therapy to be met Patient to be seen: Min.3h per day/5 of 7d PT IPOC Problem List: Activity Tolerance, Functional Strength, Safety, Balance, Gait, Transfer, Bed Mobility, ROM Treatment Plan: Continue Plan of Care Bed Mobility, Education, Functional Activity Yimi, Functional Strength, Group Therapy, Gait, Safety, Therapeutic Exercise, Transfers Treatment Duration: Jul 19, 2018 Frequency: At least 5 of 7 days/Wk (IRF) Estimated Hrs Per Day: 1.5 hours per day OT IPOC Problems: Decreased Activ Tolerance, Decreased Safety Aware, Decreased UE Strength, Dependent Transfers, Impaired Bed Mobility, Impaired Funct Balance, Impaired Self-Care Skills OT Treatment, Training and Edu: Yes Plan of Care: ADL Retraining, Functional Mobility, Group Exercise/Act as Ind, UE Funct Exercise/Act, UE Neuromus Re-Ed/Coord Treatment Duration: July 25, 2018 Frequency: 5 times per week Estimated Hrs Per Day: 1.[address] IPOC Speech Therapy Treatment Plan: Discontinue ST Treatment Duration: Jun 27, 2018 Frequency: 1 time per week Estimated Hrs Per Day: .25 hour per day Strategic Planning Specialist/Case Mgmt Strategic Planning Specialist/Case Managemen: Discharge Planning Dietitian/Money Manager Dietitian/Money Manager to monitor nutritional status and make changes and/or recommendations as needed and work with speech pathology on dietary upgrades as the occur. Physician IPOC Medical Issues being managed closely and that require the 24 hour availability of a physician: Vancomycin until Saturday IV for beta strep septicemia and sepsis and obstructive sleep apnea with asthma high risk for respiratory compromise Medical Issues: Bowel/Bladder Function, DVT Prophylaxis, Falls Precautions, Fluid/Electrolyte/Nutrition Balance, Infection Protection, Pain Management, Wound Care Brief Synthesis of Preadmission Screen, Post-Admission Evaluation, and Therapy Evaluations: Physical therapy will work on ambulation and fall prevention Occupational therapy will work on toileting and ADL independence Medical Prognosis: Good Anticipated Length of Stay: 14 days NELIA MCKEON DO Jun 28, 2018 11:19
--- NOTE | 2018-06-28 11:27 | Physical Therapy Daily Note ---
PT Daily Note-Current Subjective Pt. in bed and agrees to therapy. She has no c/o pain at present time. Mental Status Attachments: Oxygen Transfers Therapy Code Descriptions/Definitions Functional Beaver Measure: 0=Not Assessed/NA 4=Minimal Assistance 1=Total Assistance 5=Supervision or Setup 2=Maximal Assistance 6=Modified Beaver 3=Moderate Assistance 7=Complete Beaver Therapy Quality Codes: 6 Independent with activity with or without an assistive device 5 Patient requires set up or clean up by helper. Patient completes activity by themselves 4 Supervision or touching assist (CGA). Blaine provide cues , steadying assist 3 The helper provides less than half the effort to complete the activity 2 The helper provides more than half the effort to complete the activity 1 Dependent. The helper does all the effort to complete an activity 7 Patient refused to complete or attempt activity 9 The patient did not perform the activity before the current illness or injury 88 Not attempted due to Medical conditions or safety concerns Transfers (B, C, W/C) (FIM): 4 Supine to/from Sit: 4 Sit to/from Stand: 4 Weight Bearing Right Lower Extremity: Right Full Weight Bearing Left Lower Extremity: Left Full Weight Bearing Gait Training Does the Patient Walk?: Yes Gait (FIM): 2 Distance (FIM): 3=232-21 ft Distance: 2 x 100 ft Gait Level of Assist: 4 Gait Persons Needed: 1 Gait Assistive Device: FWW slow but steady, leans of walker Treatments gait, transfers Assessment Current Status: Good Progress Pt. needs increased time to complete transfers but able to complete with min A. She is slow but steady with ambulation, requires seated rest between ambulation. Pt. returned to bedside chair post session, call light in reach, O2 in situ, and all needs met. PT Family Services Manager Goals Half-Way Goals PT Family Services Manager Goals Time Frame: Jul 19, 2018 Transfers (B,C,W/C) (FIM): 6 Sit to Lying (QC): 6 Lying-Sitting on Side/Bed(QC): 6 Sit to Stand (QC): 6 Rollin Roll Left to Right (QC): 6 Chair/[id number]-Uebtm Xfer(QC): 6 Car Transfer (QC): 6 Does the Patient Walk: Yes Gait (FIM): 2 Gait distance (FIM): 6=089-11 ft Distance: 100' Walk 10 feet (QC): 6 Walk 10ft-Uneven Surface(QC): 6 Walk 50ft with 2 Turns (QC): 6 Walk 150 ft (QC): 9 Gait Level of Assist: 6 Gait Assistive Device: FWW # of Steps: 1 1 Step (curb) (QC): 5 4 Steps (QC): 9 12 Steps (QC): 9 Stairs Level Of Assist: 5 Picking up an Object (QC): 5 PT Plan Treatment/Plan Treatment Plan: Continue Plan of Care Treatment Plan: Bed Mobility, Education, Functional Activity Yimi, Functional Strength, Group Therapy, Gait, Safety, Therapeutic Exercise, Transfers Treatment Duration: Jul 19, 2018 Frequency: At least 5 of 7 days/Wk (IRF) Estimated Hrs Per Day: 1.5 hours per day Patient and/or Family Agrees t: Yes Time/GCodes Time In: 1005 Time Out: 1032 Total Billed Treatment Time: 27 Total Billed Treatment 1, GT 27' ZACARIAS BARKER PT Jun 28, 2018 11:27
[2018-06-28] MEDS: VANCOMYCIN INJECTION 2,000 MG in NS IV 500 ML 500 ML IV SCH (15:28)
[2018-06-28 15:32] VITALS: BP 130/60
--- NOTE | 2018-06-28 15:46 | Wound Care Assessment ---
Wound Care Assessment Date Seen by Provider: Jun 28, 2018 Time Seen by Provider: 15:30 Chief Complaint R calf ulcers. HPI The patient is a 73-year-old female with R calf venous insufficiency ulcers and resolving cellulitis of the R leg. The ulcers are clean by nursing report. She has less pain. Continue Dakin's dressings. Past Medical History: Admits Diabetes Type II, Admits Heart Disease, Admits Peripheral Artery Disease Venous insufficiency, obesity. Smoking Status: Never a Smoker Recreational Drug Use: No Alcohol Use: Denies Use Review of Systems Pulmonary: No Dyspnea Cardiovascular: No: Chest Pain Gastrointestinal: No: Nausea Musculoskeletal: leg pain Neurological: No: Confusion Exam Vital Signs Date Time Temp Pulse Resp B/P (MAP) Pulse Ox O2 Delivery O2 Flow Rate FiO2 06/28/18 09:09 98.4 69 20 130/60 (83) 97 Nasal Cannula 2.00 06/28/18 07:53 28 Capillary Refill : General Appearance: no apparent distress HEENT: normal ENT inspection Neck: normal inspection Respiratory: no respiratory distress Extremities: other (Dressings intact.) Results Laboratory Tests 06/27/18 18:09: Glucometer 104 06/27/18 22:03: Glucometer 133H 06/28/18 04:20: White Blood Count 7.9, Red Blood Count 3.05L, Hemoglobin 9.1L, Hematocrit 29L, Mean Corpuscular Volume 96, Mean Corpuscular Hemoglobin 30, Mean Corpuscular Hemoglobin Concent 31L, Red Cell Distribution Width 14.5, Platelet Count 232, Mean Platelet Volume 9.3, Neutrophils (%) (Auto) 72, Lymphocytes (%) (Auto) 16, Monocytes (%) (Auto) 9, Eosinophils (%) (Auto) 2, Basophils (%) (Auto) 0, Neutrophils # (Auto) 5.7, Lymphocytes # (Auto) 1.3, Monocytes # (Auto) 0.7, Eosinophils # (Auto) 0.2, Basophils # (Auto) 0.0, Sodium Level 143, Potassium Level 3.7, Chloride Level 108H, Carbon Dioxide Level 27, Anion Gap 8, Blood Urea Nitrogen 20H, Creatinine 0.96, Estimat Glomerular Filtration Rate 57, BUN/ Creatinine Ratio 21, Glucose Level 126H, Calcium Level 8.1L, Corrected Calcium 9.1, Total Bilirubin 0.3, Aspartate Amino Transf (AST/SGOT) 25, Alanine Aminotransferase (ALT/SGPT) 21, Alkaline Phosphatase 108, Total Protein 5.7L, Albumin 2.8L 06/28/18 11:22: Glucometer 137H Assessment/Plan/Dx 1. R calf ulcers x 3, full thickness without exposed support structures. 2. Venous insufficiency, BLE. 3. Diabetes with ulcer and neuropathy. 4. Peripheral arterial disease, with R calf ulcer. 5. Morbid obesity. Plan: Continue Dakin's dressings and elevation. OLIVER COBOS MD Jun 28, 2018 15:46
[2018-06-28 17:04] VITALS: BP 145/67
[2018-06-28] MEDS: RT-ALBUTEROL SULF 2.5 MG/3 ML PRE-MIX VIAL INH SCH (20:53)
--- NOTE | 2018-06-28 21:00 | NUR ---
PLEASANT AND COOPERATIVE. REFUSES DRESSING CHANGE TO LEGS. STATES IT WAS DONE LATE MORNING AND STILL FEELS GOOD. IS AFRAID "IT WILL JUST GET IRRITATED IF DRESSING KEEPS BEING REMOVED". TAKES CARE OF OWN CPAP.
[2018-06-28] MEDS: MONTELUKAST 10 MG (SINGULAIR) TAB PO SCH (21:31)
[2018-06-28] MEDS: ATORVASTATIN 40 MG (LIPITOR) TABLET PO SCH (21:31)
[2018-06-29] MEDS: KCL 10 MEQ TAB (MICRO K) PO SCH (05:28)
[2018-06-29] MEDS: FOLIC ACID 1 MG TAB PO SCH (05:28)
[2018-06-29 05:37] VITALS: BP 142/77
[2018-06-29] MEDS: inSUlin ASPART (NovoLOG) 1 UNIT/0.01 ML (CHARGE PER UNIT) SC SCH ×4 (06:15→21:19)
[2018-06-29] MEDS: RT-ALBUTEROL SULF 2.5 MG/3 ML PRE-MIX VIAL INH SCH ×2 (08:41→19:11)
[2018-06-29] MEDS: RT-ADVAIR HFA 115/21 MCG PER PUFF IH SCH ×2 (08:42→19:11)
[2018-06-29 09:45] VITALS: BP 121/74
[2018-06-29] MEDS: FUROSEMIDE 20 MG (LASIX) TAB PO SCH (09:48)
[2018-06-29] MEDS: MAGNESIUM OXIDE (MAG-OX)400 MG TAB PO SCH (09:48)
[2018-06-29] MEDS: APIXABAN 5 MG (ELIQUIS) TABLET PO SCH ×2 (09:48→20:53)
[2018-06-29] MEDS: AMIODARONE 200 MG (CORDARONE) TAB PO SCH (09:48)
[2018-06-29] MEDS: FUROSEMIDE 40 MG (LASIX) TAB PO SCH (09:48)
[2018-06-29] MEDS: meTOproloL SUCCINATE 50 MG (TOPROL XL) TAB PO SCH (09:48)
[2018-06-29] MEDS: ACETAMINOPHEN 500 MG TAB (TYLENOL) PO PRN ×3 (10:02→22:49)
[2018-06-29] MEDS: DAKIN'S 1/4 STRENGTH (0.125%) 473 ML BTL TOP SCH ×2 (10:23→13:26)
[2018-06-29] MEDS: A & D OINT 60 GM TUBE TOP SCH ×2 (10:23→20:53)
--- NOTE | 2018-06-29 11:42 | PM&R Progress Note ---
Subjective HPI/CC On Admission Date Seen by Provider: Jun 29, 2018 Time Seen by Provider: 11:30 CC: Debility requiring IRF HPI: This is a 73yoWF clinic patient of Dr Roblero who has multiple medical issues who was admitted to IRF last fall after a debility episode following an acute medical illness and subsequently went to the residential for a several weeks and then went home the end of February once her home was modified and had been doing well until she was admitted to 4th floor with sepsis and acute exacerbation of asthma and the source was the lower extremity ulcers that caused beta Strep septicemia so the ulcers have been managed by Dr Salgado and patient was placed on Vancomycin and will complete that Saturday. Her PLOF was independent at home and currently she is 1-2 person assist. Barriers to returning home alone will be ambulating and ability to perform ADL's which due to habitus will require a estimated 14 days stay. Her asthma responds to her ICS inhaler along with Neb treatments and the catheter will be removed since IVF have been IL'ed and incontinence care will be provided. Subjective/Events-last exam Patient doing very well today but coughing a bit of which she is not concerned because she has allergies Overall progressing and feels really good about being here in inpatient rehabilitation unit prior to going home Will discontinue catheter today since it was delayed due to restarting IV yesterday Bowels are moving well yand maintained on regular regimen Checked meds and labs Wearing CPAP at night Weaning oxygen since she does not use that at home and is doing well from that standpoint Checked meds Dressing was changed and then A&D ointment placed on her lower legs also Dr Salgado is appreciated Review of Systems General: Fatigue, Malaise Pulmonary: Cough Objective Exam Vital Signs Vital Signs Date Time Temp Pulse Resp B/P (MAP) Pulse Ox O2 Delivery O2 Flow Rate FiO2 06/29/18 09:45 98.6 77 20 121/74 (90) 94 Room Air 06/29/18 08:42 2.00 06/28/18 15:32 28 Capillary Refill : General Appearance: No Apparent Distress, WD/WN, Chronically ill, Obese HEENT: PERRL/EOMI, Normal ENT Inspection, Pharynx Normal, Moist Mucous Membranes Neck: Full Range of Motion, Normal Inspection, Non Tender, Supple Respiratory: Chest Non Tender, Lungs Clear, Normal Breath Sounds, No Accessory Muscle Use, No Respiratory Distress Cardiovascular: No Gallop, No JVD, No Murmur, Irregularly Irregular Gastrointestinal: Normal Bowel Sounds, No Organomegaly, No Pulsatile Mass, Non Tender, Soft Back: Normal Inspection, No CVA Tenderness, No Vertebral Tenderness Extremity: Normal Capillary Refill, Normal Inspection, Normal Range of Motion, Non Tender, No Calf Tenderness, Pedal Edema Neurologic/Psychiatric: Alert, Oriented x3, No Motor/Sensory Deficits, Normal Mood/Affect, armature straightener II-XII Norm as Tested, Abnormal Gait, Motor Weakness (4/5 all extremities) Skin: Normal Color, Warm/Dry, Other (right lower leg dressing intact over ulceration) Lymphatic: No Adenopathy Results/Procedures Lab Patient resulted labs reviewed. Assessment/Plan Assessment and Plan Assess & Plan/Chief Complaint (1) Beta-hemolytic group A streptococcal sepsis Status: Acute (2) Ulcers of both lower extremities Status: Acute (3) Anemia Status: Chronic (4) ADITI on CPAP Status: Chronic (5) Hypertension Status: Chronic (6) Diabetes Status: Chronic (7) Wheezing Status: Acute (8) Asthma Status: Chronic (9) Hypotension Status: Resolved (10) Arthritis Status: Chronic (11) Osteoporosis Status: Chronic (12) Obesity Status: Chronic (13) Debility Status: Acute (14) Lymphedema Status: Chronic Plan: IRF protocol Home meds Nebs to continue Wean O2 gradually DC Bello today Ambulate with assistance Safety education to prevent falls [place] Complete IV abx Vanc Saturday (1) Debility (2) Osteoporosis (3) Arthritis (4) Lymphedema (5) Wheezing (6) Obesity (7) Asthma (8) ADITI on CPAP (9) Anemia (10) Diabetes (11) Hypertension (12) Hypotension Resolution Date/Time: 06/25/18 @ 20:17 (13) Ulcers of both lower extremities (14) Beta-hemolytic group A streptococcal sepsis Clinical Quality Measures DVT/VTE Risk/Contraindication: Risk Factor Score Per Nursin RFS Level Per Nursing on Admit: 4+=Very High NELIA MCKEON DO Jun 29, 2018 11:41
[2018-06-29] MEDS: VANCOMYCIN INJECTION 2,000 MG in NS IV 500 ML 500 ML IV SCH (14:29)
[2018-06-29 16:58] VITALS: BP 136/73
[2018-06-29] MEDS: ATORVASTATIN 40 MG (LIPITOR) TABLET PO SCH (20:53)
[2018-06-29] MEDS: MONTELUKAST 10 MG (SINGULAIR) TAB PO SCH (20:53)
[2018-06-30] MEDS: inSUlin ASPART (NovoLOG) 1 UNIT/0.01 ML (CHARGE PER UNIT) SC SCH ×4 (06:12→21:42)
[2018-06-30] MEDS: FOLIC ACID 1 MG TAB PO SCH (06:17)
[2018-06-30] MEDS: KCL 10 MEQ TAB (MICRO K) PO SCH (06:17)
[2018-06-30 06:19] VITALS: BP 157/74
--- NOTE | 2018-06-30 08:00 | PM&R Progress Note ---
Subjective HPI/CC On Admission Date Seen by Provider: Jun 30, 2018 Time Seen by Provider: 08:00 CC: Debility requiring IRF HPI: This is a 73yoWF clinic patient of Dr Roblero who has multiple medical issues who was admitted to IRF last fall after a debility episode following an acute medical illness and subsequently [facility] to the [facility] a several weeks and then went home the end of February once her home was modified and had been doing well until she was admitted to 4th floor with sepsis and acute exacerbation of asthma and the source was the lower extremity ulcers that caused beta Strep septicemia so the ulcers have been managed by Dr Salgado and patient was placed on Vancomycin and will complete that Saturday. Her PLOF was independent at home and currently she is 1-2 person assist. Barriers to returning home alone will be ambulating and ability to perform ADL's which due to habitus will require a estimated 14 days stay. Her asthma responds to her ICS inhaler along with Neb treatments and the catheter will be removed since IVF have been MN'ed and incontinence care will be provided. Subjective/Events-last exam Pt doing well. Participating in therapy. Takes a long time to eat her food and will consult dietary because she may need to limit her calories in order to accommodate the therapy schedule and help with weight loss. Denies any pain. Wheezing continues. Nebulizer treatments maintained. Incontinence care since catheter was discontinued yesterday. Denies any other significant issues. Reviewed meds and labs. Reviewed PT/OT notes Review of Systems General: Fatigue Pulmonary: Dyspnea, Cough Objective Exam Vital Signs Vital Signs Date Time Temp Pulse Resp B/P (MAP) Pulse Ox O2 Delivery O2 Flow Rate FiO2 06/30/18 20:26 Room Air 06/30/18 15:45 97.8 78 16 163/76 (105) 92 06/30/18 09:00 2.00 06/28/18 15:32 28 Capillary Refill : General Appearance: No Apparent Distress, WD/WN, Chronically ill, Obese HEENT: PERRL/EOMI, Normal ENT Inspection, Pharynx Normal, Moist Mucous Membranes Neck: Full Range of Motion, Normal Inspection, Non Tender, Supple Respiratory: Chest Non Tender, Normal Breath Sounds, No Accessory Muscle Use, No Respiratory Distress, Wheezing Cardiovascular: No Gallop, No JVD, No Murmur, Irregularly Irregular Gastrointestinal: Normal Bowel Sounds, No Organomegaly, No Pulsatile Mass, Non Tender, Soft Back: Normal Inspection, No CVA Tenderness, No Vertebral Tenderness Extremity: Normal Capillary Refill, Normal Inspection, Normal Range of Motion, Non Tender, No Calf Tenderness, Pedal Edema Neurologic/Psychiatric: Alert, Oriented x3, No Motor/Sensory Deficits, Normal Mood/Affect, patient services technician II-XII Norm as Tested, Abnormal Gait, Motor Weakness (4/5 all extremities) Skin: Normal Color, Warm/Dry, Other (right lower leg dressing intact over ulceration) Lymphatic: No Adenopathy Results/Procedures Lab Patient resulted labs reviewed. Assessment/Plan Assessment and Plan Assess & Plan/Chief Complaint (1) Beta-hemolytic group A streptococcal sepsis- completed abx today of Vanc Status: Acute (2) Ulcers of both lower extremities Status: Acute (3) Anemia Status: Chronic (4) ADITI on CPAP Status: Chronic (5) Hypertension Status: Chronic (6) Diabetes Status: Chronic (7) Wheezing Status: Acute (8) Asthma Status: Chronic (9) Hypotension Status: Resolved (10) Arthritis Status: Chronic (11) Osteoporosis Status: Chronic (12) Obesity Status: Chronic (13) Debility Status: Acute (14) Lymphedema Status: Chronic Plan: IRF protocol Home meds Nebs to continue Wean O2 gradually DC B[place] yesterday Ambulate with assistance Safety education to prevent falls Patient will return home at DC Complete IV abx Vanc today 06/30/18 (1) Debility (2) Osteoporosis (3) Arthritis (4) Lymphedema (5) Wheezing (6) Obesity (7) Asthma (8) ADITI on CPAP (9) Anemia (10) Diabetes (11) Hypertension (12) Hypotension Resolution Date/Time: 06/25/18 @ 20:17 (13) Ulcers of both lower extremities (14) Beta-hemolytic group A streptococcal sepsis Clinical Quality Measures DVT/VTE Risk/Contraindication: Risk Factor Score Per Nursin RFS Level Per Nursing on Admit: 4+=Very High NELIA MCKEON DO Jun 30, 2018 08:00
[2018-06-30] MEDS: FUROSEMIDE 40 MG (LASIX) TAB PO SCH (08:23)
[2018-06-30] MEDS: meTOproloL SUCCINATE 50 MG (TOPROL XL) TAB PO SCH (08:23)
[2018-06-30] MEDS: FUROSEMIDE 20 MG (LASIX) TAB PO SCH (08:23)
[2018-06-30] MEDS: MAGNESIUM OXIDE (MAG-OX)400 MG TAB PO SCH (08:23)
[2018-06-30] MEDS: APIXABAN 5 MG (ELIQUIS) TABLET PO SCH ×2 (08:23→20:42)
[2018-06-30] MEDS: AMIODARONE 200 MG (CORDARONE) TAB PO SCH (08:23)
[2018-06-30] MEDS: ACETAMINOPHEN 500 MG TAB (TYLENOL) PO PRN ×3 (08:28→21:43)
[2018-06-30] MEDS: A & D OINT 60 GM TUBE TOP SCH ×2 (09:00→20:42)
[2018-06-30] MEDS: RT-ALBUTEROL SULF 2.5 MG/3 ML PRE-MIX VIAL INH SCH ×2 (10:02→20:46)
[2018-06-30] MEDS: RT-ADVAIR HFA 115/21 MCG PER PUFF IH SCH ×2 (10:04→20:46)
--- NOTE | 2018-06-30 10:11 | Physical Therapy Daily Note ---
PT Daily Note-Current Subjective Pt. initially eating breakfast and states she had forgotten since her last stay here that "everything starts early in the morning here".. Pt. requests that PT come back later if possible. At later scheduled appointment pt. was preparing to get on the BSC. Pain Location: No Pain Reported Mental Status Patient Orientation: Normal For Age Transfers Therapy Code Descriptions/Definitions Functional [place] Measure: 0=Not Assessed/NA 4=Minimal Assistance 1=Total Assistance 5=Supervision or Setup 2=Maximal Assistance 6=Modified [place] 3=Moderate Assistance 7=Complete [place] Therapy Quality Codes: 6 Independent with activity with or without an assistive device 5 Patient requires set up or clean up by helper. Patient completes activity by themselves 4 Supervision or touching assist (CGA). [place] provide cues , steadying assist 3 The helper provides less than half the effort to complete the activity 2 The helper provides more than half the effort to complete the activity 1 Dependent. The helper does all the effort to complete an activity 7 Patient refused to complete or attempt activity 9 The patient did not perform the activity before the current illness or injury 88 Not attempted due to Medical conditions or safety concerns Transfers (B, C, W/C) (FIM): 5 Scootin Sit to/from Stand: 5 pt. used lift mechanism of recline chair but came up SBA from BSC and chair, Weight Bearing Right Lower Extremity: Right Full Weight Bearing Left Lower Extremity: Left Full Weight Bearing Gait Training Does the Patient Walk?: Yes Gait (FIM): 2 Distance (FIM): 4=379-78 ft (50x2, 125) Gait Level of Assist: 5 Gait Persons Needed: 1 Gait Assistive Device: FWW slow, flexed over FWW with fairly heavy weight bearing on FWW Exercises Seated Therapy Exercises: Ankle pumps, Sit to stand, Long arc quads, Hip flexion, Hip abd/add Seated Reps: 12 (x2) Treatments pt. on BSC with very wet brief and pad as well as gown and bed linen and chair linen all wet with urine, all were changed, partial bath to legs by pt. as well as pt. cleaning self after toileting. Assessment Current Status: Good Progress pt. motivated and gave good effort PT Bead Cutter Goals Retirement Goals PT Retirement Goals Time Frame: Jul 19, 2018 Transfers (B,C,W/C) (FIM): 6 Sit to Lying (QC): 6 Lying-Sitting on Side/Bed(QC): 6 Sit to Stand (QC): 6 Rollin Roll Left to Right (QC): 6 Chair/Bva-qm-Kpzry Xfer(QC): 6 Car Transfer (QC): 6 Does the Patient Walk: Yes Gait (FIM): 2 Gait distance (FIM): 8=989-55 ft Distance: 100' Walk 10 feet (QC): 6 Walk 10ft-Uneven Surface(QC): 6 Walk 50ft with 2 Turns (QC): 6 Walk 150 ft (QC): 9 Gait Level of Assist: 6 Gait Assistive Device: FWW # of Steps: 1 1 Step (curb) (QC): 5 4 Steps (QC): 9 12 Steps (QC): 9 Stairs Level Of Assist: 5 Picking up an Object (QC): 5 PT Plan Treatment/Plan Treatment Plan: Continue Plan of Care Treatment Plan: Bed Mobility, Education, Functional Activity Yimi, Functional Strength, Group Therapy, Gait, Safety, Therapeutic Exercise, Transfers Treatment Duration: Jul 19, 2018 Frequency: At least 5 of 7 days/Wk (IRF) Estimated Hrs Per Day: 1.5 hours per day Patient and/or Family Agrees t: Yes Safety Risks/Education Patient Education: Transfer Techniques, Correct Positioning, Safety Issues Teaching Recipient: Patient Teaching Methods: Demonstration, Discussion Response to Teaching: Verbalize Understanding, Return Demonstration, Reinforcement Needed Time/GCodes Time In: 915 Time Out: 1000 Total Billed Treatment Time: 45 Total Billed Treatment 1,EX10m,FA20m,GT15m G Codes Necessary: WERNER Leiva EMPLOYMENT ADVISOR Jun 30, 2018 10:11
--- NOTE | 2018-06-30 11:49 | Occupational Ther Daily Note ---
OT Current Status-Daily Note Subjective Pt alert, sitting in recliner. Respiratory in room. Pt stated that physician has ordered no showers previous to ARU stay. Will check with physician. No c/ o pain at this time. Mental Status/Objective Patient Orientation: Person, Place, Time, Situation Therapy Code Descriptions/Definitions Functional [place] Measure: 0=Not Assessed/NA 4=Minimal Assistance 1=Total Assistance 5=Supervision or Setup 2=Maximal Assistance 6=Modified [place] 3=Moderate Assistance 7=Complete [place] Attachments: IV ADL-Treatment Pt stated that she had already complete sponge bath with nrsg after incontinent episode this am. Pt takes increased time to complete tasks due to slow mobility. Using lift chair pt able to sit <--> stand with SBA then transfers to [facility] using FWW beside recliner with SBA. Using toilet tongs pt able to complete hygiene and min A to manipulate clothing. Pt able to place sock onto sock aide, assist to pull on due to placement of IV. Pt then ambulated to sink to complete oral care and wash hands. After therapy, pt sitting in recliner with call light/phone in reach. All needs met in room. Therapy Code Descriptions/Definitions Functional [place] Measure: 0=Not Assessed/NA 4=Minimal Assistance 1=Total Assistance 5=Supervision or Setup 2=Maximal Assistance 6=Modified [place] 3=Moderate Assistance 7=Complete [place] Therapy Quality Codes: 6 Independent with activity with or without an assistive device 5 Patient requires set up or clean up by helper. Patient completes activity by themselves 4 Supervision or touching assist (CGA). [place] provide cues , steadying assist 3 The helper provides less than half the effort to complete the activity 2 The helper provides more than half the effort to complete the activity 1 Dependent. The helper does all the effort to complete an activity 7 Patient refused to complete or attempt activity 9 The patient did not perform the activity before the current illness or injury 88 Not attempted due to Medical conditions or safety concerns Grooming (FIM): 5 Oral Hygiene (QC): 4 On/Off Footwear (QC): 4 Toileting (FIM): 4 Toileting Hygiene (QC): 3 Transfers (B, C, W/C) (FIM): 5 Toilet/Commode Transfer (FIM): 5 Toilet Transfer (QC): 4 OT Short Term Goals Short Term Goals Time Frame: Jul 11, 2018 Additional Short Term Goals: 1-Demonstrate ADL Tasks, 2-Verbalize Understanding , 3-ImproveStrength/Yimi 1=Demonstrate adherence to instructed precautions during ADL tasks. 2=Patient will verbalize/demonstrate understanding of assistive devices/ modifications for ADL. 3=Patient will improve strength/tolerance for activity to enable patient to perform ADL's. OT Budget Record Clerk Goals Mcfp Goals Time Frame: July 25, 2018 Eating (FIM): 6 Eating (QC): 6 Groomin Oral Hygiene (QC): 6 Bathing(FIM): 6 Bathing Location: L Arm, R Arm, L Upper Leg, R Upper Leg, L Lower Leg ( including foot), R Lower Leg (including foot), Chest, Abdomen, Buttocks, Perineal Area Shower/Bathe Self (QC): 6 Upper Body Dressing(FIM): 6 Upper Body Dressing (QC): 6 Lower Body Dressing(FIM): 6 Lower Body Dressing (QC): 6 On/Off Footwear (QC): 6 Toileting(FIM): 6 Toileting Hygiene (QC): 6 Transfers (B,C,W/C) (FIM): 6 Toilet/Commode Transfer(FIM): 6 Toilet/Commode Transfer (QC): 6 Tub Transfer(FIM): 4 Shower Transfer(FIM): 6 Additional Goals: 1-Demonstrate ADL Tasks, 2-Verbalize Understanding, 3- ImproveStrength/Yimi 1=Demonstrate adherence to instructed precautions during ADL tasks. 2=Patient will verbalize/demonstrate understanding of assistive devices/ modifications for ADL. 3=Patient will improve strength/tolerance for activity to enable patient to perform ADL's. OT Education/Plan Problem List/Assessment Assessment: Decreased UE Strength, Impaired Self-Care Skills, Restricted Funct UE ROM Discharge Recommendations Plan/Recommendations: Continue POC Treatment Plan/Plan of Care Patient would benefit from OT for education, treatment and training to promote independence in ADL's, mobility, safety and/or upper extremity function for ADL' s. Plan of Care: ADL Retraining, Functional Mobility, Group Exercise/Act as Ind, UE Funct Exercise/Act, UE Neuromus Re-Ed/Coord Treatment Duration: July 25, 2018 Frequency: 5 times per week Estimated Hrs Per Day: 1.5 hours per day Agreement: Yes Rehab Potential: Good Time/GCodes Start Time: :00 Stop Time: 11:00 Total Time Billed (hr/min): 60 Billed Treatment Time 1 visit-ADL 4 (60 min) TEA HAWKINS Jun 30, 2018 11:49
--- NOTE | 2018-06-30 12:16 | Physical Therapy Daily Note ---
PT Daily Note-Current Subjective Pt. agrees to Rx. comments that the diuretics are really working and she will need to go to the bathroom again after the Rx. Pain Location: No Pain Reported Mental Status Patient Orientation: Normal For Age Transfers Therapy Code Descriptions/Definitions Functional [place] Measure: 0=Not Assessed/NA 4=Minimal Assistance 1=Total Assistance 5=Supervision or Setup 2=Maximal Assistance 6=Modified [place] 3=Moderate Assistance 7=Complete [place] Therapy Quality Codes: 6 Independent with activity with or without an assistive device 5 Patient requires set up or clean up by helper. Patient completes activity by themselves 4 Supervision or touching assist (CGA). [place] provide cues , steadying assist 3 The helper provides less than half the effort to complete the activity 2 The helper provides more than half the effort to complete the activity 1 Dependent. The helper does all the effort to complete an activity 7 Patient refused to complete or attempt activity 9 The patient did not perform the activity before the current illness or injury 88 Not attempted due to Medical conditions or safety concerns Transfers (B, C, W/C) (FIM): 5 in out bed and chair and toilet with SBA and puts forth much effort Weight Bearing Right Lower Extremity: Right Full Weight Bearing Left Lower Extremity: Left Full Weight Bearing Gait Training Does the Patient Walk?: Yes Gait Assistive Device: FWW [id number], 50x2 SBA, slow, wide SHIRA ,flexed over FWW Exercises Supine Ex: Ankle pumps, Quad Set, Rolling, Glut sets, Heel Slides, Short Arc Quads, Straight leg raise, Hip abd/add Supine Reps: 12 Seated Therapy Exercises: Ankle pumps, Sit to stand, Long arc quads, Hip flexion Seated Reps: 10 NuStep Minutes: 8 NuStep Workload: 1 Treatments toileted with assist for changing brief and gown, wet with urine again Assessment Current Status: Good Progress PT Attenuator Goals Senior Care Goals PT Senior Care Goals Time Frame: Jul 19, 2018 Transfers (B,C,W/C) (FIM): 6 Sit to Lying (QC): 6 Lying-Sitting on Side/Bed(QC): 6 Sit to Stand (QC): 6 Rollin Roll Left to Right (QC): 6 Chair/Dfw-zs-Atjui Xfer(QC): 6 Car Transfer (QC): 6 Does the Patient Walk: Yes Gait (FIM): 2 Gait distance (FIM): 5=729-71 ft Distance: 100' Walk 10 feet (QC): 6 Walk 10ft-Uneven Surface(QC): 6 Walk 50ft with 2 Turns (QC): 6 Walk 150 ft (QC): 9 Gait Level of Assist: 6 Gait Assistive Device: FWW # of Steps: 1 1 Step (curb) (QC): 5 4 Steps (QC): 9 12 Steps (QC): 9 Stairs Level Of Assist: 5 Picking up an Object (QC): 5 PT Plan Treatment/Plan Treatment Plan: Continue Plan of Care Treatment Plan: Bed Mobility, Education, Functional Activity Yimi, Functional Strength, Group Therapy, Gait, Safety, Therapeutic Exercise, Transfers Treatment Duration: Jul 19, 2018 Frequency: At least 5 of 7 days/Wk (IRF) Estimated Hrs Per Day: 1.5 hours per day Patient and/or Family Agrees t: Yes Safety Risks/Education Patient Education: Gait Training, Transfer Techniques, Correct Positioning, Disease Process, Safety Issues Teaching Recipient: Patient Teaching Methods: Demonstration, Discussion Response to Teaching: Verbalize Understanding, Return Demonstration, Reinforcement Needed Time/GCodes Time In: 1100 Time Out: 1150 Total Billed Treatment Time: 50 Total Billed Treatment 1,FA15m,EX20m,GT15m G Codes Necessary: WERNER Leiva PTA Jun 30, 2018 12:16
--- NOTE | 2018-06-30 14:21 | Therapy Group Daily Note ---
Therapy Daily Group Note Patient Education Topic Other List Below (memory strategies) Exercises LE Seated Exercise, UE Exercise Session Ratio (pt:therapist): 4:1 Goal of Session: Memory Strategies understanding/acknowledging the importance of memory for health and well being Goal Met for this Session: Yes Pt Benefit of Group: Increased Functional Safety, Increased Functional Strength , Improved Cognition, Socialization, Other (memory strategies) Other/Notes Pt. participated in group PT session this date. Pt. came and went ambulating with [facility] SBA. Pts. 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 lead exercise session by reading and illustrating/leading U&L extremity exercises. This pt. was happy to share and demonstrated all exercises well. Pts. also shared memory strategies and played memory activity image matching game. Pt. to room after group with adams at hand and all needs met Start Time: 13:00 Stop Time: 14:00 Total Billed Treatment Time: 60 Total Billed Treatment 1,GRP WERNER SPENCE HELMINTHOLOGY TEACHER Jun 30, 2018 14:21
[2018-06-30 15:45] VITALS: BP 163/76
[2018-06-30] MEDS: MONTELUKAST 10 MG (SINGULAIR) TAB PO SCH (20:42)
[2018-06-30] MEDS: ATORVASTATIN 40 MG (LIPITOR) TABLET PO SCH (20:42)
[2018-07-01 05:07] VITALS: BP 152/71
[2018-07-01] MEDS: FOLIC ACID 1 MG TAB PO SCH (05:56)
[2018-07-01] MEDS: KCL 10 MEQ TAB (MICRO K) PO SCH (05:56)
[2018-07-01] MEDS: inSUlin ASPART (NovoLOG) 1 UNIT/0.01 ML (CHARGE PER UNIT) SC SCH ×4 (05:57→22:19)
[2018-07-01] MEDS: RT-ALBUTEROL SULF 2.5 MG/3 ML PRE-MIX VIAL INH SCH ×2 (07:33→21:00)
[2018-07-01] MEDS: RT-ADVAIR HFA 115/21 MCG PER PUFF IH SCH (07:38)
--- NOTE | 2018-07-01 08:08 | PM&R Progress Note ---
Subjective HPI/CC On Admission Date Seen by Provider: Jul 01, 2018 Time Seen by Provider: 08:00 CC: Debility requiring IRF HPI: This is a 73yoWF clinic patient of Dr Roblero who has multiple medical issues who was admitted to IRF last fall after a debility episode following an acute medical illness and [facility] and then went home the end of February once her home was modified and had been doing well until she was admitted to 4th floor with sepsis and acute exacerbation of asthma and the source was the lower extremity ulcers that caused beta Strep septicemia so the ulcers have been managed by Dr Salgado and patient was placed on Vancomycin and will complete that Saturday. Her PLOF was independent at home and currently she is 1-2 person assist. Barriers to returning home alone will be ambulating and ability to perform ADL's which due to habitus will require a estimated 14 days stay. Her asthma responds to her ICS inhaler along with Neb treatments and the catheter will be removed since IVF have been ND'ed and incontinence care will be provided. Subjective/Events-last exam Pt up and ready of therapy Completed breakfast already Wants a hospital bed at [place] Has stress incontinence and will provide incontinence care Legs are about the same, dressing changes are on protocol Dr. Salgado is consulted and his expertise is appreciated Vancomycin is complete now for Beta Strep septicemia Review of Systems General: Fatigue Pulmonary: Cough Musculoskeletal: leg pain Objective Exam Vital Signs Vital Signs Date Time Temp Pulse Resp B/P (MAP) Pulse Ox O2 Delivery O2 Flow Rate FiO2 07/01/18 17:09 Room Air 07/01/18 15:38 97.5 68 16 148/75 (99) 92 07/01/18 15:01 21 06/30/18 09:00 2.00 Capillary Refill : General Appearance: No Apparent Distress, WD/WN, Chronically ill, Obese HEENT: PERRL/EOMI, Normal ENT Inspection, Pharynx Normal, Moist Mucous Membranes Neck: Full Range of Motion, Normal Inspection, Non Tender, Supple Respiratory: Chest Non Tender, Normal Breath Sounds, No Accessory Muscle Use, No Respiratory Distress, Wheezing Cardiovascular: No Gallop, No JVD, No Murmur, Irregularly Irregular Gastrointestinal: Normal Bowel Sounds, No Organomegaly, No Pulsatile Mass, Non Tender, Soft Back: Normal Inspection, No CVA Tenderness, No Vertebral Tenderness Extremity: Normal Capillary Refill, Normal Inspection, Normal Range of Motion, Non Tender, No Calf Tenderness, Pedal Edema Neurologic/Psychiatric: Alert, Oriented x3, No Motor/Sensory Deficits, Normal Mood/Affect, technical designer II-XII Norm as Tested, Abnormal Gait, Motor Weakness (4/5 all extremities) Skin: Normal Color, Warm/Dry, Other (right lower leg dressing intact over ulceration) Lymphatic: No Adenopathy Results/Procedures Lab Patient resulted labs reviewed. Assessment/Plan Assessment and Plan Assess & Plan/Chief Complaint (1) Beta-hemolytic group A streptococcal sepsis- completed abx today of Vanc Status: Acute (2) Ulcers of both lower extremities Status: Acute (3) Anemia Status: Chronic (4) ADITI on CPAP Status: Chronic (5) Hypertension Status: Chronic (6) Diabetes Status: Chronic (7) Wheezing Status: Acute (8) Asthma Status: Chronic (9) Hypotension Status: Resolved (10) Arthritis Status: Chronic (11) Osteoporosis Status: Chronic (12) Obesity Status: Chronic (13) Debility Status: Acute (14) Lymphedema Status: Chronic Plan: IRF protocol Home meds Nebs to continue Wean O2 gradually Ambulate with assistance Safety education to prevent falls Patient will return home at [place] Complete IV abx Vanc yesterday 06/30/18 (1) Debility (2) Osteoporosis (3) Arthritis (4) Lymphedema (5) Wheezing (6) Obesity (7) Asthma (8) ADITI on CPAP (9) Anemia (10) Diabetes (11) Hypertension (12) Hypotension Resolution Date/Time: 06/25/18 @ 20:17 (13) Ulcers of both lower extremities (14) Beta-hemolytic group A streptococcal sepsis Clinical Quality Measures DVT/VTE Risk/Contraindication: Risk Factor Score Per Nursin RFS Level Per Nursing on Admit: 4+=Very High NELIA MCKEON DO Jul 01, 2018 08:08
[2018-07-01] MEDS: ACETAMINOPHEN 500 MG TAB (TYLENOL) PO PRN ×3 (08:22→22:30)
[2018-07-01] MEDS: AMIODARONE 200 MG (CORDARONE) TAB PO SCH (08:23)
[2018-07-01] MEDS: meTOproloL SUCCINATE 50 MG (TOPROL XL) TAB PO SCH (08:23)
[2018-07-01] MEDS: FUROSEMIDE 20 MG (LASIX) TAB PO SCH ×2 (08:23→08:29)
[2018-07-01] MEDS: APIXABAN 5 MG (ELIQUIS) TABLET PO SCH ×2 (08:23→20:54)
[2018-07-01] MEDS: MAGNESIUM OXIDE (MAG-OX)400 MG TAB PO SCH (08:25)
[2018-07-01] MEDS: FUROSEMIDE 40 MG (LASIX) TAB PO SCH (08:31)
[2018-07-01] MEDS: A & D OINT 113 GM TUBE TOP SCH ×2 (09:30→20:54)
--- NOTE | 2018-07-01 09:30 | NUR ---
PATIENT WONDERING IF IRON INJECTIONS SHOULD BE STARTED AND DR. CRENSHAW NOTIFIED OF THIS.
--- NOTE | 2018-07-01 09:44 | Occupational Ther Daily Note ---
OT Current Status-Daily Note Subjective pt sitting in recliner chair upon OT arrival in no apparent distress. pt agreed to OT TX session with focus on increasing overall independence with ADLS/ functional transfers. pt stated she already had breakfast and breathing treatment prior to OT arrival. pt complains of 6/10 pain in Ziggy knees. NSG notifed and NSG gave pain medication. post OT session pt stated pain has remained the same Appearance no distress. Mental Status/Objective Patient Orientation: Person, Place, Time, Situation Therapy Code Descriptions/Definitions Functional [place] Measure: 0=Not Assessed/NA 4=Minimal Assistance 1=Total Assistance 5=Supervision or Setup 2=Maximal Assistance 6=Modified [place] 3=Moderate Assistance 7=Complete [place] ADL-Treatment Therapy Code Descriptions/Definitions Functional [place] Measure: 0=Not Assessed/NA 4=Minimal Assistance 1=Total Assistance 5=Supervision or Setup 2=Maximal Assistance 6=Modified [place] 3=Moderate Assistance 7=Complete [place] Therapy Quality Codes: 6 Independent with activity with or without an assistive device 5 Patient requires set up or clean up by helper. Patient completes activity by themselves 4 Supervision or touching assist (CGA). [place] provide cues , steadying assist 3 The helper provides less than half the effort to complete the activity 2 The helper provides more than half the effort to complete the activity 1 Dependent. The helper does all the effort to complete an activity 7 Patient refused to complete or attempt activity 9 The patient did not perform the activity before the current illness or injury 88 Not attempted due to Medical conditions or safety concerns Grooming (FIM): 5 (standing at sink with supervision for safety/ balance. pt education on energy conservation techniques. ) Oral Hygiene (QC): 5 (stanidng at sink) Bathing (FIM): 4 (pt demo ability to wash 7/8 body parts excluding ziggy feet secondary to wound dressing. pt required assist to wash buttock scodnary to limited ROM . pt education on use o tongs to increase overall indepedence. pt verbailzed understanding) Bathing Location: L Arm, R Arm, L Upper Leg, R Upper Leg, Chest, Abdomen, Perineal Area Shower/Bathe Self (QC): 3 Upper Body (FIM): 4 (pt education on proper UB dressing echniques for energy conservation. pt demo correctly and required assist to pull down shirt in back) Upper Body Dressing (QC): 3 Lower Body Dressing (FIM): 4 (pt required asssit to pull up pants in back secodnary to fatigue. pt demo ability to pull up brief. pt demo correct use of AE (collection systems consultant)) Lower Body Dressing (QC): 3 Toileting (FIM): 5 Toileting Hygiene (QC): 4 Toilet/Commode Transfer (FIM): 5 (pt education on proper placement of RW while in bathroom. pt demo understanidng) Education OT Patient Education: Correct positioning, Energy conservation, Modified ADL techniques, Progress toward Goal/Update tx plan, Rehab process, Transfer techniques, Use of adapted equipment Teaching Methods: Demonstration, Discussion Response to Teaching: Verbalize Understanding, Return Demonstration OT Short Term Goals Short Term Goals Time Frame: Jul 11, 2018 Additional Short Term Goals: 1-Demonstrate ADL Tasks, 2-Verbalize Understanding , 3-ImproveStrength/Yimi 1=Demonstrate adherence to instructed precautions during ADL tasks. 2=Patient will verbalize/demonstrate understanding of assistive devices/ modifications for ADL. 3=Patient will improve strength/tolerance for activity to enable patient to perform ADL's. OT Nursing Home Goals Nursing Home Goals Time Frame: July 25, 2018 Eating (FIM): 6 Eating (QC): 6 Groomin Oral Hygiene (QC): 6 Bathing(FIM): 6 Bathing Location: L Arm, R Arm, L Upper Leg, R Upper Leg, L Lower Leg ( including foot), R Lower Leg (including foot), Chest, Abdomen, Buttocks, Perineal Area Shower/Bathe Self (QC): 6 Upper Body Dressing(FIM): 6 Upper Body Dressing (QC): 6 Lower Body Dressing(FIM): 6 Lower Body Dressing (QC): 6 On/Off Footwear (QC): 6 Toileting(FIM): 6 Toileting Hygiene (QC): 6 Transfers (B,C,W/C) (FIM): 6 Toilet/Commode Transfer(FIM): 6 Toilet/Commode Transfer (QC): 6 Tub Transfer(FIM): 4 Shower Transfer(FIM): 6 Additional Goals: 1-Demonstrate ADL Tasks, 2-Verbalize Understanding, 3- ImproveStrength/Yimi 1=Demonstrate adherence to instructed precautions during ADL tasks. 2=Patient will verbalize/demonstrate understanding of assistive devices/ modifications for ADL. 3=Patient will improve strength/tolerance for activity to enable patient to perform ADL's. OT Education/Plan Discharge Recommendations Plan/Recommendations: Continue POC Treatment Plan/Plan of Care Patient would benefit from OT for education, treatment and training to promote independence in ADL's, mobility, safety and/or upper extremity function for ADL' s. Plan of Care: ADL Retraining, Functional Mobility, Group Exercise/Act as Ind, UE Funct Exercise/Act, UE Neuromus Re-Ed/Coord Treatment Duration: July 25, 2018 Frequency: 5 times per week Estimated Hrs Per Day: 1.5 hours per day Agreement: Yes Rehab Potential: Good Time/GCodes Start Time: 07:50 Stop Time: 09:30 Total Time Billed (hr/min): 100 Billed Treatment Time ADL 7 units (100minutes) LILIYA GUTIÉRREZ OT Jul 01, 2018 09:44
--- NOTE | 2018-07-01 11:12 | Physical Therapy Daily Note ---
PT Daily Note-Current Subjective Pt. was sitting in chair upon arrival. Pt. agreed to therapy treatment. Pt. had no complaints of pain. Transfers Therapy Code Descriptions/Definitions Functional [place] Measure: 0=Not Assessed/NA 4=Minimal Assistance 1=Total Assistance 5=Supervision or Setup 2=Maximal Assistance 6=Modified [place] 3=Moderate Assistance 7=Complete [place] Therapy Quality Codes: 6 Independent with activity with or without an assistive device 5 Patient requires set up or clean up by helper. Patient completes activity by themselves 4 Supervision or touching assist (CGA). Counselor provide cues , steadying assist 3 The helper provides less than half the effort to complete the activity 2 The helper provides more than half the effort to complete the activity 1 Dependent. The helper does all the effort to complete an activity 7 Patient refused to complete or attempt activity 9 The patient did not perform the activity before the current illness or injury 88 Not attempted due to Medical conditions or safety concerns Scootin Supine to/from Sit: 4 Sit to/from Stand: 4 Sit to Lying (QC): 4 Sit to Stand (QC): 4 Weight Bearing Right Lower Extremity: Right Full Weight Bearing Left Lower Extremity: Left Full Weight Bearing Gait Training Does the Patient Walk?: Yes Distance (FIM): 3=150 ft Distance: 200' Gait Level of Assist: 5 Gait Persons Needed: 1 Gait Assistive Device: FWW Pt. ambulates with WBOS. Pt. also ambulates with trunk flexion. Wheelchair Training Does the Pt Use a Wheelchair?: No Exercises Supine Ex: Ankle pumps, Glut sets, Heel Slides, Short Arc Quads, Scooting, Straight leg raise, Hip abd/add Supine Reps: 10 Seated Therapy Exercises: Ankle pumps, Long arc quads, Hip flexion, Kicking activity, Hamstring Curls, Hip abd/add Seated Reps: 10 Treatments Pt. was transferred from chair to standing. Pt. ambulated to therapy room with 1 RB. Pt. completed supine exercises on therapy mat. Pt. then completed seated exercises at edge of mat. Pt. ambulated back to room with no RB. Therapist helped pt. use bathroom. Pt. was left in chair with all needs met. Assessment Current Status: Good Progress Pt. responded to treatment well. Pt. will continue to benefit from therapy services. PT Repairer Goals Retirement Goals PT Repairer Goals Time Frame: Jul 19, 2018 Transfers (B,C,W/C) (FIM): 6 Sit to Lying (QC): 6 Lying-Sitting on Side/Bed(QC): 6 Sit to Stand (QC): 6 Rollin Roll Left to Right (QC): 6 Chair/Szo-sa-Xpyyf Xfer(QC): 6 Car Transfer (QC): 6 Does the Patient Walk: Yes Gait (FIM): 2 Gait distance (FIM): 9=100-79 ft Distance: 100' Walk 10 feet (QC): 6 Walk 10ft-Uneven Surface(QC): 6 Walk 50ft with 2 Turns (QC): 6 Walk 150 ft (QC): 9 Gait Level of Assist: 6 Gait Assistive Device: FWW # of Steps: 1 1 Step (curb) (QC): 5 4 Steps (QC): 9 12 Steps (QC): 9 Stairs Level Of Assist: 5 Picking up an Object (QC): 5 PT Plan Treatment/Plan Treatment Plan: Continue Plan of Care Treatment Plan: Bed Mobility, Education, Functional Activity Yimi, Functional Strength, Group Therapy, Gait, Safety, Therapeutic Exercise, Transfers Treatment Duration: Jul 19, 2018 Frequency: At least 5 of 7 days/Wk (IRF) Estimated Hrs Per Day: 1.5 hours per day Patient and/or Family Agrees t: Yes Time/GCodes Time In: 930 Time Out: 1100 Total Billed Treatment Time: 90 Total Billed Treatment 1, GT x 2, Ex x 2, FA x 2 G Codes Necessary: RENNY Small TECHNICAL SALES MANAGER Jul 01, 2018 11:12
--- NOTE | 2018-07-01 11:40 | Wound Care Assessment ---
Wound Care Assessment Date Seen by Provider: Jul 01, 2018 Time Seen by Provider: 11:20 Chief Complaint R calf ulcers. HPI The patient is a 73-year-old female with R calf venous insufficiency ulcers. The wounds and cellulitis R leg are much improved. She has been elevating more. Change to honey alginate dressings. Past Medical History: Admits Diabetes Type II, Admits Heart Disease, Admits Peripheral Artery Disease Smoking Status: Never a Smoker Recreational Drug Use: No Alcohol Use: Denies Use Review of Systems Pulmonary: No Dyspnea Cardiovascular: No: Chest Pain Exam Vital Signs Date Time Temp Pulse Resp B/P (MAP) Pulse Ox O2 Delivery O2 Flow Rate FiO2 07/01/18 09:00 Room Air 07/01/18 07:38 93 07/01/18 05:07 98.9 82 18 152/71 (98) 06/30/18 09:00 2.00 06/28/18 15:32 28 Capillary Refill : HEENT: normal ENT inspection Neck: normal inspection Respiratory: no respiratory distress Extremities: other (Cluster of 5 wounds, R calf, largest superior lateral, 2.8 x 2.5 x 0.3 cm, base 50% slough, 25% granulation, mod. s.s. drainage.) Results Laboratory Tests 06/30/18 15:44: Glucometer 106 06/30/18 21:40: Glucometer 145H 07/01/18 05:55: Glucometer 108 07/01/18 11:01: Glucometer 114H Assessment/Plan/Dx 1. R calf ulcers x 3, full thickness without exposed support structures. 2. Venous insufficiency, BLE. 3. Diabetes with ulcer and neuropathy. 4. Peripheral arterial disease, with R calf ulcer. 5. Morbid obesity. Plan: Continue elevation. Change to [place] honey alginate dressings. OLIVER COBOS MD Jul 01, 2018 11:40
--- NOTE | 2018-07-01 12:00 | NUR ---
DR. COBOS HERE TO SEE PATIENT. DRESSING TO LEFT LEG CHANGED TO [place] HONEY ALGINATE. PATIENT REMINDED TO KEEP ANKLES ELEVATED HIGHER THAN HEART MUCH POSSIBLE.
[2018-07-01 15:01] VITALS: BP 152/71
[2018-07-01 15:38] VITALS: BP 148/75
[2018-07-01] MEDS ORDERED: CATHETER FLUSH 10 ML SYR IV PRN (16:15)
[2018-07-01] MEDS: MONTELUKAST 10 MG (SINGULAIR) TAB PO SCH (20:54)
[2018-07-01] MEDS: ATORVASTATIN 40 MG (LIPITOR) TABLET PO SCH (20:54)
[2018-07-01] MEDS: CATHETER FLUSH 10 ML SYR IV SCH (22:30)
[2018-07-02] MEDS: RT-ADVAIR HFA 115/21 MCG PER PUFF IH SCH ×3 (00:47→21:53)
[2018-07-02 05:04] LABS: BASOPHILS % (AUTO) 0 % (0-10); EOSINOPHILS # (AUTO) 0.1 10^3/uL (0.0-0.3); EOSINOPHILS % (AUTO) 1 % (0-10); HEMATOCRIT 29 % (35-52); HEMOGLOBIN 8.8 G/DL (11.5-16.0); LYMPHOCYTES % (AUTO) 12 % (12-44); MEAN CORPUSCULAR HEMOGLOBIN 30 PG (25-34); MEAN CORPUSCULAR HGB CONC 31 G/DL (32-36); MEAN CORPUSCULAR VOLUME 96 FL (80-99); MEAN PLATELET VOLUME 8.4 FL (7.4-10.4); MONOCYTES # (AUTO) 0.6 X 10^3 (0.0-1.0); MONOCYTES % (AUTO) 7 % (0-12); NEUTROPHILS # (AUTO) 7.1 X 10^3 (1.8-7.8); NEUTROPHILS % (AUTO) 80 % (42-75); PLATELET COUNT 298 10^3/uL (130-400); RED CELL DISTRIBUTION WIDTH 14.4 % (10.0-14.5); WHITE BLOOD COUNT 8.9 10^3/uL (4.3-11.0)
[2018-07-02 05:24] LABS: ALANINE AMINOTRANSFERASE 15 U/L (0-55); ALKALINE PHOSPHATASE 93 U/L (40-136); BILIRUBIN,TOTAL 0.4 MG/DL (0.1-1.0); BUN/CREATININE RATIO 23; CALCIUM 8.5 MG/DL (8.5-10.1); CARBON DIOXIDE 29 MMOL/L (21-32); CHLORIDE 106 MMOL/L (98-107); CREATININE SERUM 0.86 MG/DL (0.60-1.30); GFR ESTIMATED > 60; GLUCOSE 115 MG/DL (70-105); SODIUM 140 MMOL/L (135-145); TOTAL PROTEIN 6.3 GM/DL (6.4-8.2)
[2018-07-02] MEDS: CATHETER FLUSH 10 ML SYR IV SCH ×3 (05:33→20:39)
[2018-07-02] MEDS: inSUlin ASPART (NovoLOG) 1 UNIT/0.01 ML (CHARGE PER UNIT) SC SCH ×4 (05:34→21:48)
[2018-07-02 05:42] VITALS: BP 154/81
[2018-07-02] MEDS: KCL 10 MEQ TAB (MICRO K) PO SCH (06:13)
[2018-07-02] MEDS: FOLIC ACID 1 MG TAB PO SCH (06:13)
[2018-07-02] MEDS: ACETAMINOPHEN 500 MG TAB (TYLENOL) PO PRN ×3 (07:04→23:23)
[2018-07-02 07:48] VITALS: BP 168/76
[2018-07-02] MEDS: MAGNESIUM OXIDE (MAG-OX)400 MG TAB PO SCH (07:49)
[2018-07-02] MEDS: meTOproloL SUCCINATE 50 MG (TOPROL XL) TAB PO SCH (07:49)
[2018-07-02] MEDS: AMIODARONE 200 MG (CORDARONE) TAB PO SCH (07:49)
[2018-07-02] MEDS: FUROSEMIDE 40 MG (LASIX) TAB PO SCH (07:49)
[2018-07-02] MEDS: APIXABAN 5 MG (ELIQUIS) TABLET PO SCH ×2 (07:49→20:38)
[2018-07-02] MEDS: FUROSEMIDE 20 MG (LASIX) TAB PO SCH (07:49)
[2018-07-02] MEDS: RT-ALBUTEROL SULF 2.5 MG/3 ML PRE-MIX VIAL INH SCH ×2 (08:09→21:53)
--- NOTE | 2018-07-02 08:36 | PM&R Progress Note ---
Subjective HPI/CC On Admission Date Seen by Provider: Jul 02, 2018 Time Seen by Provider: 08:15 CC: Debility requiring IRF HPI: This is a 73yoWF clinic patient of Dr Roblero who has multiple medical issues who was admitted to IRF last fall after a debility episode following an acute medical illness and subsequently went to the custodial for a several weeks and then went home the end of February once her home was modified and had been doing well until she was admitted to 4th floor with sepsis and acute exacerbation of asthma and the source was the lower extremity ulcers that caused beta Strep septicemia so the ulcers have been managed by Dr Salgado and patient was placed on Vancomycin and will complete that Saturday. Her PLOF was independent at home and currently she is 1-2 person assist. Barriers to returning home alone will be ambulating and ability to perform ADL's which due to habitus will require a estimated 14 days stay. Her asthma responds to her ICS inhaler along with Neb treatments and the catheter will be removed since IVF have been DC'ed and incontinence care will be provided. Subjective/Events-last exam Pt didn't sleep well because RT felt like we needed to put on 3 liters as ordered but she wants to work on weening that off Dr. Salgado did change wound care to honey Q48hrs and will time her showers to every other day to prevent getting that dressing wet Hgb 8.[address] Troncoso her regular Ornamenter Hand for iron infusions will be consulted Iron level was pending at this time Checked meds and labs Reviewed therapy notes Review of Systems General: Fatigue Pulmonary: Dyspnea, Cough Neurological: Incoordination Objective Exam Vital Signs Vital Signs Date Time Temp Pulse Resp B/P (MAP) Pulse Ox O2 Delivery O2 Flow Rate FiO2 07/02/18 21:01 Room Air 07/02/18 18:24 98.5 77 20 153/72 (99) 95 07/02/18 08:12 2.00 07/01/18 15:01 21 Capillary Refill : General Appearance: No Apparent Distress, WD/WN, Chronically ill, Obese HEENT: PERRL/EOMI, Normal ENT Inspection, Pharynx Normal, Moist Mucous Membranes Neck: Full Range of Motion, Normal Inspection, Non Tender, Supple Respiratory: Chest Non Tender, Lungs Clear, Normal Breath Sounds, No Accessory Muscle Use, No Respiratory Distress Cardiovascular: No Gallop, No JVD, No Murmur, Irregularly Irregular Gastrointestinal: Normal Bowel Sounds, No Organomegaly, No Pulsatile Mass, Non Tender, Soft Back: Normal Inspection, No CVA Tenderness, No Vertebral Tenderness Extremity: Normal Capillary Refill, Normal Inspection, Normal Range of Motion, Non Tender, No Calf Tenderness, Pedal Edema Neurologic/Psychiatric: Alert, Oriented x3, No Motor/Sensory Deficits, Normal Mood/Affect, travel insurance agent II-XII Norm as Tested, Abnormal Gait, Motor Weakness (4/5 all extremities) Skin: Normal Color, Warm/Dry, Other (right lower leg dressing intact over ulceration) Lymphatic: No Adenopathy Results/Procedures Lab Laboratory Tests 07/02/18 04:50 07/02/18 16:45 Patient resulted labs reviewed. Assessment/Plan Assessment and Plan Assess & Plan/Chief Complaint (1) Beta-hemolytic group A streptococcal sepsis- completed abx of Vanc Status: Acute (2) Ulcers of both lower extremities-Dr Salgado is appreciated Status: Acute (3) Anemia- consulting her Ornamenter Hand Dr Troncoso Status: Chronic (4) ADITI on CPAP Status: Chronic (5) Hypertension Status: Chronic (6) Diabetes Status: Chronic (7) Wheezing- improved today Status: Acute (8) Asthma Status: Chronic (9) Hypotension Status: Resolved (10) Arthritis Status: Chronic (11) Osteoporosis Status: Chronic (12) Obesity Status: Chronic (13) Debility Status: Acute (14) Lymphedema Status: Chronic Plan: IRF protocol Home meds Nebs to continue Wean O2 gradually Ambulate with assistance Safety education to prevent falls Patient will return home at [place] Complete IV abx Vanc (1) Debility (2) Osteoporosis (3) Arthritis (4) Lymphedema (5) Wheezing (6) Obesity (7) Asthma (8) ADITI on CPAP (9) Anemia (10) Diabetes (11) Hypertension (12) Hypotension Resolution Date/Time: 06/25/18 @ 20:17 (13) Ulcers of both lower extremities (14) Beta-hemolytic group A streptococcal sepsis Clinical Quality Measures DVT/VTE Risk/Contraindication: Risk Factor Score Per Nursin RFS Level Per Nursing on Admit: 4+=Very High NELIA MCKEON DO Jul 02, 2018 08:36
--- NOTE | 2018-07-02 09:23 | Occupational Ther Daily Note ---
OT Current Status-Daily Note Subjective pt agrees to OT tx session with focus on increase activity tolerance/ endurance for daily activities. pt complains of 4/10 Ziggy knee pain throughout session. NSG made aware Mental Status/Objective Therapy Code Descriptions/Definitions Functional [place] Measure: 0=Not Assessed/NA 4=Minimal Assistance 1=Total Assistance 5=Supervision or Setup 2=Maximal Assistance 6=Modified [place] 3=Moderate Assistance 7=Complete [place] ADL-Treatment Therapy Code Descriptions/Definitions Functional [place] Measure: 0=Not Assessed/NA 4=Minimal Assistance 1=Total Assistance 5=Supervision or Setup 2=Maximal Assistance 6=Modified [place] 3=Moderate Assistance 7=Complete [place] Therapy Quality Codes: 6 Independent with activity with or without an assistive device 5 Patient requires set up or clean up by helper. Patient completes activity by themselves 4 Supervision or touching assist (CGA). [place] provide cues , steadying assist 3 The helper provides less than half the effort to complete the activity 2 The helper provides more than half the effort to complete the activity 1 Dependent. The helper does all the effort to complete an activity 7 Patient refused to complete or attempt activity 9 The patient did not perform the activity before the current illness or injury 88 Not attempted due to Medical conditions or safety concerns Other Treatment pt demo ability to perform functional mobility 75 ft to tx gym using RW with one seated rest break secondary to activity tolerance for 2 minutes. post rest break pt required MIN A to perform sit to stand secondary to activity tolerance. pt education on proper hand placement when performing sit to stand and rocking technique. pt verbalized understanding and demo ability to to perform 3 sit to stands with CGA/ MIN A.pt then perform ed UBE X10 minutes to increase activity tolerance. pt education on HEP with red theraband to increase UE strength/ tolerance. pt verbalized understanding and demo one of each exercise for understanding (shoulder flexion/ extension/ ADD/ ABD, elbow flex/ ext) more education will be provided for theraband. pt required additional timing to perform functional mobility back to room secondary to tolerance level. pt resting in recliner chair post OT TX session. all needs met. Education Teaching Recipient: Patient Teaching Methods: Demonstration, Discussion Response to Teaching: Verbalize Understanding, Return Demonstration OT Short Term Goals Short Term Goals Time Frame: Jul 11, 2018 Additional Short Term Goals: 1-Demonstrate ADL Tasks, 2-Verbalize Understanding , 3-ImproveStrength/Yimi 1=Demonstrate adherence to instructed precautions during ADL tasks. 2=Patient will verbalize/demonstrate understanding of assistive devices/ modifications for ADL. 3=Patient will improve strength/tolerance for activity to enable patient to perform ADL's. OT Laborer Operator Goals [facility] Goals Time Frame: July 25, 2018 Eating (FIM): 6 Eating (QC): 6 Groomin Oral Hygiene (QC): 6 Bathing(FIM): 6 Bathing Location: L Arm, R Arm, L Upper Leg, R Upper Leg, L Lower Leg ( including foot), R Lower Leg (including foot), Chest, Abdomen, Buttocks, Perineal Area Shower/Bathe Self (QC): 6 Upper Body Dressing(FIM): 6 Upper Body Dressing (QC): 6 Lower Body Dressing(FIM): 6 Lower Body Dressing (QC): 6 On/Off Footwear (QC): 6 Toileting(FIM): 6 Toileting Hygiene (QC): 6 Transfers (B,C,W/C) (FIM): 6 Toilet/Commode Transfer(FIM): 6 Toilet/Commode Transfer (QC): 6 Tub Transfer(FIM): 4 Shower Transfer(FIM): 6 Additional Goals: 1-Demonstrate ADL Tasks, 2-Verbalize Understanding, 3- ImproveStrength/Yimi 1=Demonstrate adherence to instructed precautions during ADL tasks. 2=Patient will verbalize/demonstrate understanding of assistive devices/ modifications for ADL. 3=Patient will improve strength/tolerance for activity to enable patient to perform ADL's. OT Education/Plan Problem List/Assessment pt continues to demo functional limitations affecting areas of ADLS/ functional transfers with deficits in: decrease activity tolerance/ endurance, generalized weakness, decrease UE ROM, decrease LB dressing, decrease toileting, decrease factional transfers. pt would benefit from additional OT services to increase overall independence with ADLS/ functional transfers and for safety transition to home. Discharge Recommendations Plan/Recommendations: Continue POC Treatment Plan/Plan of Care Treatment,Training & Education: Yes Patient would benefit from OT for education, treatment and training to promote independence in ADL's, mobility, safety and/or upper extremity function for ADL' s. Plan of Care: ADL Retraining, Functional Mobility, Group Exercise/Act as Ind, UE Funct Exercise/Act, UE Neuromus Re-Ed/Coord Treatment Duration: July 25, 2018 Frequency: 5 times per week Estimated Hrs Per Day: 1.5 hours per day Agreement: Yes Rehab Potential: Good Time/GCodes Start Time: 08:00 Stop Time: 09:10 Total Time Billed (hr/min): 70 Billed Treatment Time FA 5 units, 70 minutes LILIYA GUTIÉRREZ OT Jul 02, 2018 09:23
[2018-07-02] MEDS: A & D OINT 113 GM TUBE TOP SCH ×2 (09:44→21:48)
--- NOTE | 2018-07-02 10:48 | Physical Therapy Daily Note ---
PT Daily Note-Current Subjective Pt sitting in recliner upon arrival. Pt agrees to PT. Pain Numeric Pain Scale: 3 Location: Right Location Body Site: Calf Pain Description: Ache Mental Status Patient Orientation: Person, Place, Time, Situation Transfers Therapy Code Descriptions/Definitions Functional [place] Measure: 0=Not Assessed/NA 4=Minimal Assistance 1=Total Assistance 5=Supervision or Setup 2=Maximal Assistance 6=Modified [place] 3=Moderate Assistance 7=Complete [place] Therapy Quality Codes: 6 Independent with activity with or without an assistive device 5 Patient requires set up or clean up by helper. Patient completes activity by themselves 4 Supervision or touching assist (CGA). [place] provide cues , steadying assist 3 The helper provides less than half the effort to complete the activity 2 The helper provides more than half the effort to complete the activity 1 Dependent. The helper does all the effort to complete an activity 7 Patient refused to complete or attempt activity 9 The patient did not perform the activity before the current illness or injury 88 Not attempted due to Medical conditions or safety concerns Scootin Sit to/from Stand: 5 Sit to Stand (QC): 5 Pt was SBA for recliner to standing with chair lifted. Weight Bearing Right Lower Extremity: Right Full Weight Bearing Left Lower Extremity: Left Full Weight Bearing Gait Training Does the Patient Walk?: Yes Distance (FIM): 1=up to 49 ft Distance: 40' Walk 10 feet (QC): 5 Gait Level of Assist: 5 Gait Persons Needed: 1 Gait Assistive Device: FWW Pt continues to walk with flexed hip posture and leans heavily on FWW. COLD STORAGE SUPERVISOR gives VC for improved posture but some it is baseline. Exercises Seated Therapy Exercises: Ankle pumps, Long arc quads, Hip flexion, Kicking activity, Hip abd/add Seated Reps: 20 Treatments Pt asks questions over progression as well as ways to continue improving for home. COLD STORAGE SUPERVISOR gave pt ed over energy conservation, continue Ex and fall prevention/ home safety. Pt needs to use restroom, needing assistance for pericare. Pt able to don/doff brief independently. Pt returns to recliner to rest. Pt completes Seated EX in recliner. Pt has all needs met at end of tx. Assessment Current Status: Good Progress At times, pt needs VC for ambulation. PT It Engineer Goals It Engineer Goals PT Snf Goals Time Frame: Jul 19, 2018 Transfers (B,C,W/C) (FIM): 6 Sit to Lying (QC): 6 Lying-Sitting on Side/Bed(QC): 6 Sit to Stand (QC): 6 Rollin Roll Left to Right (QC): 6 Chair/Jfx-df-Gojlh Xfer(QC): 6 Car Transfer (QC): 6 Does the Patient Walk: Yes Gait (FIM): 2 Gait distance (FIM): 3=884-87 ft Distance: 100' Walk 10 feet (QC): 6 Walk 10ft-Uneven Surface(QC): 6 Walk 50ft with 2 Turns (QC): 6 Walk 150 ft (QC): 9 Gait Level of Assist: 6 Gait Assistive Device: FWW # of Steps: 1 1 Step (curb) (QC): 5 4 Steps (QC): 9 12 Steps (QC): 9 Stairs Level Of Assist: 5 Picking up an Object (QC): 5 PT Plan Problem List Problem List: Activity Tolerance, Functional Strength, Gait, Transfer Treatment/Plan Treatment Plan: Continue Plan of Care Treatment Plan: Bed Mobility, Education, Functional Activity Yimi, Functional Strength, Group Therapy, Gait, Safety, Therapeutic Exercise, Transfers Treatment Duration: Jul 19, 2018 Frequency: At least 5 of 7 days/Wk (IRF) Estimated Hrs Per Day: 1.5 hours per day Patient and/or Family Agrees t: Yes Safety Risks/Education Patient Education: Gait Training, Transfer Techniques, Correct Positioning, Safety Issues Teaching Recipient: Patient Teaching Methods: Discussion Response to Teaching: Verbalize Understanding Time/GCodes Time In: 930 Time Out: 1030 Total Billed Treatment Time: 60 Total Billed Treatment 1, FA x2 (35m) & EX x2 (25m) G Codes Necessary: RENNY Small COLD STORAGE SUPERVISOR Jul 02, 2018 10:48
--- NOTE | 2018-07-02 14:31 | Therapy Group Daily Note ---
Therapy Daily Group Note Patient Education Topic Home Safety Exercises LE Seated Exercise, UE Exercise Session Ratio (pt:therapist): 4:1 Goal of Session: Memory Strategies, UE/LE Strengthing Goal Met for this Session: Yes Pt Benefit of Group: Contributions to Others, F/U Use of Strategies @Home, Increased Functional Safety, Increased Functional Strength, Improved Cognition, Recognition of Peers, Socialization Other/Notes Pt ambulated using FWW to/from OT group. Group consisted of introductions (name , place, favorite spring activity), socialization, seated UE/LE exercise, home safety education and trivia. Pt able to introduce self appropriately and actively listened to peers. Pt participated in educational topic, verbalizing understanding and asking thought provoking questions. Pt able to answer trivia questions about home safety. Pt completed UE/LE seated exercise, tolerated well. After therapy, pt lying in bed with call light/phone in reach. All needs met in room. Start Time: 13:00 Stop Time: 14:00 Total Billed Treatment Time: 60 Total Billed Treatment 1-[facility] TEA HAWKINS Jul 02, 2018 14:31
--- NOTE | 2018-07-02 15:03 | Occupational Ther Daily Note ---
OT Current Status-Daily Note Subjective pt agreed to OT TX session with focus on increasing independence with toileting. Pain Numeric Pain Scale: 0-No Pain Mental Status/Objective Therapy Code Descriptions/Definitions Functional [place] Measure: 0=Not Assessed/NA 4=Minimal Assistance 1=Total Assistance 5=Supervision or Setup 2=Maximal Assistance 6=Modified [place] 3=Moderate Assistance 7=Complete [place] ADL-Treatment Therapy Code Descriptions/Definitions Functional [place] Measure: 0=Not Assessed/NA 4=Minimal Assistance 1=Total Assistance 5=Supervision or Setup 2=Maximal Assistance 6=Modified [place] 3=Moderate Assistance 7=Complete [place] Therapy Quality Codes: 6 Independent with activity with or without an assistive device 5 Patient requires set up or clean up by helper. Patient completes activity by themselves 4 Supervision or touching assist (CGA). [place] provide cues , steadying assist 3 The helper provides less than half the effort to complete the activity 2 The helper provides more than half the effort to complete the activity 1 Dependent. The helper does all the effort to complete an activity 7 Patient refused to complete or attempt activity 9 The patient did not perform the activity before the current illness or injury 88 Not attempted due to Medical conditions or safety concerns Toileting (FIM): 5 (SBA fro saety. balace. pt eduation on standing while performing tiletin gtask secondary to decrease UE ROM. pt demo understanding) Toileting Hygiene (QC): 4 Education OT Patient Education: Modified ADL techniques Teaching Recipient: Patient Teaching Methods: Demonstration, Discussion Response to Teaching: Verbalize Understanding, Return Demonstration OT Short Term Goals Short Term Goals Time Frame: Jul 11, 2018 Additional Short Term Goals: 1-Demonstrate ADL Tasks, 2-Verbalize Understanding , 3-ImproveStrength/Yimi 1=Demonstrate adherence to instructed precautions during ADL tasks. 2=Patient will verbalize/demonstrate understanding of assistive devices/ modifications for ADL. 3=Patient will improve strength/tolerance for activity to enable patient to perform ADL's. OT Assisted Goals Assisted Goals Time Frame: July 25, 2018 Eating (FIM): 6 Eating (QC): 6 Groomin Oral Hygiene (QC): 6 Bathing(FIM): 6 Bathing Location: L Arm, R Arm, L Upper Leg, R Upper Leg, L Lower Leg ( including foot), R Lower Leg (including foot), Chest, Abdomen, Buttocks, Perineal Area Shower/Bathe Self (QC): 6 Upper Body Dressing(FIM): 6 Upper Body Dressing (QC): 6 Lower Body Dressing(FIM): 6 Lower Body Dressing (QC): 6 On/Off Footwear (QC): 6 Toileting(FIM): 6 Toileting Hygiene (QC): 6 Transfers (B,C,W/C) (FIM): 6 Toilet/Commode Transfer(FIM): 6 Toilet/Commode Transfer (QC): 6 Tub Transfer(FIM): 4 Shower Transfer(FIM): 6 Additional Goals: 1-Demonstrate ADL Tasks, 2-Verbalize Understanding, 3- ImproveStrength/Yimi 1=Demonstrate adherence to instructed precautions during ADL tasks. 2=Patient will verbalize/demonstrate understanding of assistive devices/ modifications for ADL. 3=Patient will improve strength/tolerance for activity to enable patient to perform ADL's. OT Education/Plan Problem List/Assessment pt continues to demo functional limitations affecting areas of ADLS/ functional transfers with deficits in: decrease activity tolerance/ endurance, generalized weakness, decrease UE ROM, decrease LB dressing, decrease toileting, decrease factional transfers. pt would benefit from additional OT services to increase overall independence with ADLS/ functional transfers and for safety transition to home. Discharge Recommendations Plan/Recommendations: Continue POC Treatment Plan/Plan of Care Treatment,Training & Education: Yes Patient would benefit from OT for education, treatment and training to promote independence in ADL's, mobility, safety and/or upper extremity function for ADL' s. Plan of Care: ADL Retraining, Functional Mobility, Group Exercise/Act as Ind, UE Funct Exercise/Act, UE Neuromus Re-Ed/Coord Treatment Duration: July 25, 2018 Frequency: 5 times per week Estimated Hrs Per Day: 1.5 hours per day Agreement: Yes Rehab Potential: Good Time/GCodes Start Time: 14:20 Stop Time: 14:40 Billed Treatment Time ADL 1 unit, 20 minutes LILIYA GUTIÉRREZ OT Jul 02, 2018 15:03
--- NOTE | 2018-07-02 16:33 | NUR ---
BRAKE PRESS OPERATOR met with patient to review team conference summary. As patient requires min assist for transfers, bathing and mod assist for toileting, as well as continues to require nocturnal oxygen, team has recommended discharge not occur until 418. Patient is agreeable to this date and is hopeful that home adaptive equipment will provide more improvement with OT skills Patient's son intends to bring home equipment this evening. BRAKE PRESS OPERATOR has sent necessary information to [facility] for review of coverage for hospital bed. If coverage is unavailable, patient intends on renting a bed due to lower extremity wounds and recommendation by Dr. Salgado. BRAKE PRESS OPERATOR reviewed recommendation of home health services for PT, OT, RN and bath aide. Patient was previously active with [facility] and prefers to utilize this provider at discharge. Patient also previously used [facility] for [employer] Whe[facility] and would like to have that reinstated. BRAKE PRESS OPERATOR will reach out to appropriate resources.
--- NOTE | 2018-07-02 16:38 | Progress Note-Standard ---
Standard Progress Note Progress Notes/Assess & Plan Date Seen by a Provider: Jul 02, 2018 Time Seen by a Provider: 16:30 Progress/Assessment & Plan 73-year-old female with anemia of chronic disease due to chronic kidney disease stage III and on JOSE L therapy on an outpatient basis. She also has history of fine deficiency with no response to oral iron replacement and has required parenteral iron replacement in the past. Patient admitted to the hospital recently with left calf skin ulcers and streptococcus pyogenes bacteremia, status post antibiotic therapy with vancomycin. Wound care managing lower extremity ulcers. Patient admitted to rehabilitation because of deconditioning. Noted to have worsening anemia. Patient mentioned small amount of hematochezia due to hemorrhoids. No other obvious bleeding. Hemoglobin is continuing to decline in spite of the JOSE L therapy. Most recent ferritin level from May 2018 was in 94 range. Iron studies obtained today is pending. I would recommend starting the no further 200 mg 5 doses every 48 hours. I would also recommend Aranesp 40 g weekly until the hemoglobin is improving. If the hematochezia is continuing, she will need an evaluation for this. Will follow patient with you. ROSALEE CRENSHAW Jul 02, 2018 16:38
[2018-07-02 16:57] LABS: ABSOLUTE RETIC # 56 10e9/L (24-90); BASOPHILS % (AUTO) 0 % (0-10); EOSINOPHILS # (AUTO) 0.1 10^3/uL (0.0-0.3); EOSINOPHILS % (AUTO) 1 % (0-10); HEMATOCRIT 29 % (35-52); HEMOGLOBIN 8.9 G/DL (11.5-16.0); LYMPHOCYTES # (AUTO) 1.1 X 10^3 (1.0-4.0); LYMPHOCYTES % (AUTO) 10 % (12-44); MEAN CORPUSCULAR HEMOGLOBIN 30 PG (25-34); MEAN CORPUSCULAR HGB CONC 31 G/DL (32-36); MEAN CORPUSCULAR VOLUME 96 FL (80-99); MEAN PLATELET VOLUME 8.7 FL (7.4-10.4); MONOCYTES # (AUTO) 0.7 X 10^3 (0.0-1.0); MONOCYTES % (AUTO) 7 % (0-12); NEUTROPHILS # (AUTO) 8.6 X 10^3 (1.8-7.8); NEUTROPHILS % (AUTO) 82 % (42-75); PLATELET COUNT 300 10^3/uL (130-400); RED CELL DISTRIBUTION WIDTH 14.5 % (10.0-14.5); RETICULOCYTE % 1.85 % (0.50-2.40); WHITE BLOOD COUNT 10.5 10^3/uL (4.3-11.0)
[2018-07-02] MEDS: DARBEPOETIN 40 MCG/ML (ARANESP) HOSPITAL SC SCH (18:04)
[2018-07-02] MEDS: IRON SUCROSE 200 MG/10 ML (VENOFER) VIAL IV SCH (18:04)
[2018-07-02 18:24] VITALS: BP 153/72
[2018-07-02] MEDS: ATORVASTATIN 40 MG (LIPITOR) TABLET PO SCH (20:38)
[2018-07-02] MEDS: MONTELUKAST 10 MG (SINGULAIR) TAB PO SCH (20:38)
[2018-07-03 06:05] VITALS: BP 124/74
[2018-07-03] MEDS: inSUlin ASPART (NovoLOG) 1 UNIT/0.01 ML (CHARGE PER UNIT) SC SCH ×4 (06:17→22:50)
[2018-07-03] MEDS: FOLIC ACID 1 MG TAB PO SCH (06:36)
[2018-07-03] MEDS: KCL 10 MEQ TAB (MICRO K) PO SCH (06:36)
[2018-07-03] MEDS: CATHETER FLUSH 10 ML SYR IV SCH ×3 (06:36→22:50)
[2018-07-03] MEDS: FUROSEMIDE 40 MG (LASIX) TAB PO SCH (08:09)
[2018-07-03] MEDS: MAGNESIUM OXIDE (MAG-OX)400 MG TAB PO SCH (08:09)
[2018-07-03] MEDS: APIXABAN 5 MG (ELIQUIS) TABLET PO SCH ×2 (08:10→21:11)
[2018-07-03] MEDS: AMIODARONE 200 MG (CORDARONE) TAB PO SCH (08:10)
[2018-07-03] MEDS: FUROSEMIDE 20 MG (LASIX) TAB PO SCH (08:10)
[2018-07-03] MEDS: meTOproloL SUCCINATE 50 MG (TOPROL XL) TAB PO SCH (08:10)
[2018-07-03] MEDS: ACETAMINOPHEN 500 MG TAB (TYLENOL) PO PRN ×2 (08:11→22:49)
[2018-07-03] MEDS: RT-ALBUTEROL SULF 2.5 MG/3 ML PRE-MIX VIAL INH SCH ×2 (08:32→18:38)
[2018-07-03] MEDS: RT-ADVAIR HFA 115/21 MCG PER PUFF IH SCH ×2 (08:32→18:38)
--- NOTE | 2018-07-03 08:44 | PM&R Progress Note ---
Subjective HPI/CC On Admission Date Seen by Provider: Jul 03, 2018 Time Seen by Provider: 08:15 CC: Debility requiring IRF HPI: This is a 73yoWF clinic patient of Dr Roblero who has multiple medical issues who was admitted to IRF last fall after a debility episode following an acute medical illness and subsequently went to the long-term for a several weeks and then went home the end of February once her home was modified and had been doing well until she was admitted to 4th floor with sepsis and acute exacerbation of asthma and the source was the lower extremity ulcers that caused beta Strep septicemia so the ulcers have been managed by Dr Salgado and patient was placed on Vancomycin and will complete that Saturday. Her PLOF was independent at home and currently she is 1-2 person assist. Barriers to returning home alone will be ambulating and ability to perform ADL's which due to habitus will require a estimated 14 days stay. Her asthma responds to her ICS inhaler along with Neb treatments and the catheter will be removed since IVF have been IL'ed and incontinence care will be provided. Subjective/Events-last exam Off oxygen in the CPAP at night and feels very pleased about that. Has lost 20lbs of fluid since she has been in the hospital. Dressing changes successful for lower extremity ulcerations. Participating in therapy to improve ambulation and ADLs. Checked meds and labs. Reviewed all therapy notes. Slept better last night Review of Systems General: Fatigue Pulmonary: Dyspnea, Cough Objective Exam Vital Signs Vital Signs Date Time Temp Pulse Resp B/P (MAP) Pulse Ox O2 Delivery O2 Flow Rate FiO2 07/03/18 10:06 90 Room Air 07/03/18 06:05 98.4 73 18 124/74 (91) 07/02/18 08:12 2.00 07/01/18 15:01 21 Capillary Refill : General Appearance: No Apparent Distress, WD/WN, Chronically ill, Obese HEENT: PERRL/EOMI, Normal ENT Inspection, Pharynx Normal, Moist Mucous Membranes Neck: Full Range of Motion, Normal Inspection, Non Tender, Supple Respiratory: Chest Non Tender, Lungs Clear, Normal Breath Sounds, No Accessory Muscle Use, No Respiratory Distress Cardiovascular: No Gallop, No JVD, No Murmur, Irregularly Irregular Gastrointestinal: Normal Bowel Sounds, No Organomegaly, No Pulsatile Mass, Non Tender, Soft Back: Normal Inspection, No CVA Tenderness, No Vertebral Tenderness Extremity: Normal Capillary Refill, Normal Inspection, Normal Range of Motion, Non Tender, No Calf Tenderness, Pedal Edema Neurologic/Psychiatric: Alert, Oriented x3, No Motor/Sensory Deficits, Normal Mood/Affect, harness mender II-XII Norm as Tested, Abnormal Gait, Motor Weakness (4/5 all extremities) Skin: Normal Color, Warm/Dry, Other (right lower leg dressing intact over ulceration) Lymphatic: No Adenopathy Results/Procedures Lab Patient resulted labs reviewed. Assessment/Plan Assessment and Plan Assess & Plan/Chief Complaint (1) Beta-hemolytic group A streptococcal sepsis- completed abx of Vanc Status: Acute (2) Ulcers of both lower extremities-Dr Salgado is appreciated Status: Acute (3) Anemia- consulting her [place] Dr Troncoso Status: Chronic (4) ADITI on CPAP Status: Chronic (5) Hypertension Status: Chronic (6) Diabetes Status: Chronic (7) Wheezing- improved today Status: Acute (8) Asthma Status: Chronic (9) Hypotension Status: Resolved (10) Arthritis Status: Chronic (11) Osteoporosis Status: Chronic (12) Obesity Status: Chronic (13) Debility Status: Acute (14) Lymphedema Status: Chronic Plan: IRF protocol Home meds Nebs to continue which keep lungs clear Wean O2 gradually and it appears that has been successful Ambulate with assistance Safety education to prevent falls Patient will return [place] Complete IV abx Vanc (1) Debility (2) Osteoporosis (3) Arthritis (4) Lymphedema (5) Wheezing (6) Obesity (7) Asthma (8) ADITI on CPAP (9) Anemia (10) Diabetes (11) Hypertension (12) Hypotension Resolution Date/Time: 06/25/18 @ 20:17 (13) Ulcers of both lower extremities (14) Beta-hemolytic group A streptococcal sepsis Clinical Quality Measures DVT/VTE Risk/Contraindication: Risk Factor Score Per Nursin RFS Level Per Nursing on Admit: 4+=Very High NELIA MCKEON DO Jul 03, 2018 08:44
[2018-07-03] MEDS: RT-ALBUTEROL SULF 2.5 MG/3 ML PRE-MIX VIAL INH PRN (10:06)
--- NOTE | 2018-07-03 10:40 | NUR ---
Pastoral care visit.
[2018-07-03] MEDS: A & D OINT 113 GM TUBE TOP SCH ×2 (11:51→22:50)
--- NOTE | 2018-07-03 12:10 | NUR ---
MIGUEL received notification from GLENDA Blue in outpatient wound care regarding concerns of patient's ability to manage wounds at home and need for in home assistance to reduce patient's time on feet, as legs need elevated, when possible. MANAGER E LEARNING continues to work on obtaining a hospital bed for patient to ensure leg elevation and will discuss Home Care providers for assistance with daily household tasks. Addendum: 07/03/18 at 1640 by MARIBELL NEUMANN MIGUEL received feedback from SALLY, based on diagnosis and need for hospital bed, patient does not met criteria for Medicare coverage. Patient has been provided rental cost of $175/mo.
--- NOTE | 2018-07-03 13:11 | Occupational Ther Daily Note ---
OT Current Status-Daily Note Subjective pt sitting in recliner chiar upon OT Arrival. pt in no apparent distress. pt agreed to OT TX session with focus on increasing independence with ADLs. OT received new orders from doctor stating pt may shower. NSG confirmed pt may shower. Mental Status/Objective Therapy Code Descriptions/Definitions Functional [place] Measure: 0=Not Assessed/NA 4=Minimal Assistance 1=Total Assistance 5=Supervision or Setup 2=Maximal Assistance 6=Modified [place] 3=Moderate Assistance 7=Complete [place] ADL-Treatment Therapy Code Descriptions/Definitions Functional [place] Measure: 0=Not Assessed/NA 4=Minimal Assistance 1=Total Assistance 5=Supervision or Setup 2=Maximal Assistance 6=Modified [place] 3=Moderate Assistance 7=Complete [place] Therapy Quality Codes: 6 Independent with activity with or without an assistive device 5 Patient requires set up or clean up by helper. Patient completes activity by themselves 4 Supervision or touching assist (CGA). [place] provide cues , steadying assist 3 The helper provides less than half the effort to complete the activity 2 The helper provides more than half the effort to complete the activity 1 Dependent. The helper does all the effort to complete an activity 7 Patient refused to complete or attempt activity 9 The patient did not perform the activity before the current illness or injury 88 Not attempted due to Medical conditions or safety concerns Eating (FIM): 7 Eating (QC): 6 Grooming (FIM): 6 (use of RW while standing at sink to maintain balance) Oral Hygiene (QC): 4 Bathing (FIM): 5 (use of AE. pt education on proper use of AE while perfoming bathing. pt demo understnaidng with no safety concerns) Bathing Location: L Arm, R Arm, L Upper Leg, R Upper Leg, L Lower Leg ( including foot), R Lower Leg (including foot), Chest, Abdomen, Buttocks, Perineal Area Shower/Bathe Self (QC): 4 Upper Body Dressing (QC): 5 (VC for use if AE (sock aid) pt required additinal timing) On/Off Footwear (QC): 4 Toileting (FIM): 5 (use of AE and VC ) Toileting Hygiene (QC): 4 Toilet/Commode Transfer (FIM): 5 Toilet Transfer (QC): 4 Shower Transfer(FIM): 5 Education OT Patient Education: Energy conservation, Modified ADL techniques, Progress toward Goal/Update tx plan, Purpose of tx/functional activities, Safety issues, Transfer techniques, Use of adapted equipment Teaching Recipient: Patient Teaching Methods: Demonstration, Discussion Response to Teaching: Verbalize Understanding, Return Demonstration OT Short Term Goals Short Term Goals Time Frame: Jul 11, 2018 Additional Short Term Goals: 1-Demonstrate ADL Tasks, 2-Verbalize Understanding , 3-ImproveStrength/Yimi 1=Demonstrate adherence to instructed precautions during ADL tasks. 2=Patient will verbalize/demonstrate understanding of assistive devices/ modifications for ADL. 3=Patient will improve strength/tolerance for activity to enable patient to perform ADL's. OT [employer] Goals Jail Goals Time Frame: July 25, 2018 Eating (FIM): 6 Eating (QC): 6 Groomin Oral Hygiene (QC): 6 Bathing(FIM): 6 Bathing Location: L Arm, R Arm, L Upper Leg, R Upper Leg, L Lower Leg ( including foot), R Lower Leg (including foot), Chest, Abdomen, Buttocks, Perineal Area Shower/Bathe Self (QC): 6 Upper Body Dressing(FIM): 6 Upper Body Dressing (QC): 6 Lower Body Dressing(FIM): 6 Lower Body Dressing (QC): 6 On/Off Footwear (QC): 6 Toileting(FIM): 6 Toileting Hygiene (QC): 6 Transfers (B,C,W/C) (FIM): 6 Toilet/Commode Transfer(FIM): 6 Toilet/Commode Transfer (QC): 6 Tub Transfer(FIM): 4 Shower Transfer(FIM): 6 Additional Goals: 1-Demonstrate ADL Tasks, 2-Verbalize Understanding, 3- ImproveStrength/Yimi 1=Demonstrate adherence to instructed precautions during ADL tasks. 2=Patient will verbalize/demonstrate understanding of assistive devices/ modifications for ADL. 3=Patient will improve strength/tolerance for activity to enable patient to perform ADL's. OT Education/Plan Problem List/Assessment pt has made gains toward goals. pt continues to demo functional limitations affecting areas of ADLS/ functional transfers with deficits in: decrease activity tolerance/ endurance. pt would benefit from additional OT services to increase overall independence with ADLS/ functional transfers and for safety transition to home. Discharge Recommendations Plan/Recommendations: Continue POC Treatment Plan/Plan of Care Treatment,Training & Education: Yes Patient would benefit from OT for education, treatment and training to promote independence in ADL's, mobility, safety and/or upper extremity function for ADL' s. Plan of Care: ADL Retraining, Functional Mobility, Group Exercise/Act as Ind, UE Funct Exercise/Act, UE Neuromus Re-Ed/Coord Treatment Duration: July 25, 2018 Frequency: 5 times per week Estimated Hrs Per Day: 1.5 hours per day Agreement: Yes Rehab Potential: Good Time/GCodes Start Time: 10:30 Stop Time: 12:00 Billed Treatment Time ADL 6 units, 90 minutes LILIYA GUTIÉRREZ OT Jul 03, 2018 13:11
--- NOTE | 2018-07-03 13:23 | Physical Therapy Daily Note ---
PT Daily Note-Current Subjective Pt. agrees to Rx. States she is having pain this morning but its no different than what she has had before admission to the hospital. Pt. encouraged to get up and begin moving and see if it might help her feel better. Pt. states during Rx that she does feel better after initiating movement Pain Comment: c/o pain initially but did not rate Mental Status Patient Orientation: Normal For Age Transfers Therapy Code Descriptions/Definitions Functional [place] Measure: 0=Not Assessed/NA 4=Minimal Assistance 1=Total Assistance 5=Supervision or Setup 2=Maximal Assistance 6=Modified [place] 3=Moderate Assistance 7=Complete [place] Therapy Quality Codes: 6 Independent with activity with or without an assistive device 5 Patient requires set up or clean up by helper. Patient completes activity by themselves 4 Supervision or touching assist (CGA). [place] provide cues , steadying assist 3 The helper provides less than half the effort to complete the activity 2 The helper provides more than half the effort to complete the activity 1 Dependent. The helper does all the effort to complete an activity 7 Patient refused to complete or attempt activity 9 The patient did not perform the activity before the current illness or injury 88 Not attempted due to Medical conditions or safety concerns Transfers (B, C, W/C) (FIM): 6 Scootin Rollin Supine to/from Sit: 6 Sit to/from Stand: 6 (uses lift chair but has good success at std chair using arms on chair) Weight Bearing Right Lower Extremity: Right Full Weight Bearing Left Lower Extremity: Left Full Weight Bearing Gait Training Does the Patient Walk?: Yes Gait (FIM): 5 Distance (FIM): 3=150 ft (165x2, 50) Gait Level of Assist: 5 Gait Persons Needed: 1 Gait Assistive Device: FWW slow, heavy weight bearing on FWW, LEs continue with edema and are heavy and cumbersome to lift and manage but pt. is handling this well Stair Training Stair Training: Handrails/: 2 handrails Stairs (FIM): 1 #of Steps: 1 Stairs: Pattern: Step to Level of Assist: 3 inside parallel bars pt. ascended/ descended pink step with mod to min assist but was unable to ascend step second trial Exercises Supine Ex: Ankle pumps, Quad Set, Rolling, Glut sets, Heel Slides, Hip abd/add Supine Reps: 15 Seated Therapy Exercises: Ankle pumps, Sit to stand, Long arc quads, Hip flexion Seated Reps: 15 Standing: Hip Abduction, Heel/toe raises, Marching Standing Reps: 12 Treatments pt. toileted demonstrating good management of revenue cycle consultant and toileting tool but becomes mildly SOB and requires rest periods . This MANGA ARTIST assisted pt. minimally to reserve strength for remainder of Rx Assessment Current Status: Good Progress pt. gives good effort, needs rest breaks secondary to mild SOB which resolves with short rest breaks PT Insurance Examiner Goals Insurance Examiner Goals PT Insurance Examiner Goals Time Frame: Jul 19, 2018 Transfers (B,C,W/C) (FIM): 6 Sit to Lying (QC): 6 Lying-Sitting on Side/Bed(QC): 6 Sit to Stand (QC): 6 Rollin Roll Left to Right (QC): 6 Chair/[id number]-[id number] Xfer(QC): 6 Car Transfer (QC): 6 Does the Patient Walk: Yes Gait (FIM): 2 Gait distance (FIM): 3=391-44 ft Distance: 100' Walk 10 feet (QC): 6 Walk 10ft-Uneven Surface(QC): 6 Walk 50ft with 2 Turns (QC): 6 Walk 150 ft (QC): 9 Gait Level of Assist: 6 Gait Assistive Device: FWW # of Steps: 1 1 Step (curb) (QC): 5 4 Steps (QC): 9 12 Steps (QC): 9 Stairs Level Of Assist: 5 Picking up an Object (QC): 5 PT Plan Treatment/Plan Treatment Plan: Continue Plan of Care Treatment Plan: Bed Mobility, Education, Functional Activity Yimi, Functional Strength, Group Therapy, Gait, Safety, Therapeutic Exercise, Transfers Treatment Duration: Jul 19, 2018 Frequency: At least 5 of 7 days/Wk (IRF) Estimated Hrs Per Day: 1.5 hours per day Patient and/or Family Agrees t: Yes Safety Risks/Education Patient Education: Gait Training, Transfer Techniques, Steps, Correct Positioning, Disease Process, Safety Issues Teaching Recipient: Patient Teaching Methods: Demonstration, Discussion Response to Teaching: Verbalize Understanding, Return Demonstration, Reinforcement Needed Time/GCodes Time In: 800 Time Out: 930 Total Billed Treatment Time: 90 Total Billed Treatment 1,FA40m,GT30m,EX20m G Codes Necessary: No WERNER SPENCE MANGA ARTIST Jul 03, 2018 13:23
[2018-07-03 18:45] VITALS: BP 127/72
[2018-07-03] MEDS: MONTELUKAST 10 MG (SINGULAIR) TAB PO SCH (21:11)
[2018-07-03] MEDS: ATORVASTATIN 40 MG (LIPITOR) TABLET PO SCH (21:11)
[2018-07-04 06:23] VITALS: BP 167/74
[2018-07-04] MEDS: inSUlin ASPART (NovoLOG) 1 UNIT/0.01 ML (CHARGE PER UNIT) SC SCH ×4 (06:25→21:39)
[2018-07-04] MEDS: CATHETER FLUSH 10 ML SYR IV SCH ×3 (06:25→22:18)
[2018-07-04] MEDS: FOLIC ACID 1 MG TAB PO SCH (06:37)
[2018-07-04] MEDS: KCL 10 MEQ TAB (MICRO K) PO SCH (06:37)
[2018-07-04] MEDS: RT-ALBUTEROL SULF 2.5 MG/3 ML PRE-MIX VIAL INH SCH ×2 (07:13→20:19)
[2018-07-04] MEDS: RT-ADVAIR HFA 115/21 MCG PER PUFF IH SCH ×2 (07:13→20:19)
[2018-07-04] MEDS: AMIODARONE 200 MG (CORDARONE) TAB PO SCH (08:21)
[2018-07-04] MEDS: meTOproloL SUCCINATE 50 MG (TOPROL XL) TAB PO SCH (08:21)
[2018-07-04] MEDS: APIXABAN 5 MG (ELIQUIS) TABLET PO SCH ×2 (08:21→22:18)
[2018-07-04] MEDS: FUROSEMIDE 20 MG (LASIX) TAB PO SCH (08:21)
[2018-07-04] MEDS: FUROSEMIDE 40 MG (LASIX) TAB PO SCH (08:21)
[2018-07-04] MEDS: MAGNESIUM OXIDE (MAG-OX)400 MG TAB PO SCH (08:21)
[2018-07-04] MEDS: ACETAMINOPHEN 500 MG TAB (TYLENOL) PO PRN ×3 (08:22→23:08)
--- NOTE | 2018-07-04 08:35 | PM&R Progress Note ---
Subjective HPI/CC On Admission Date Seen by Provider: Jul 04, 2018 Time Seen by Provider: 08:15 CC: Debility requiring IRF HPI: This is a 73yoWF clinic patient of Dr Roblero who has multiple medical issues who was admitted to IRF last fall after a debility episode following an acute medical illness and subsequently went to the correction for a several weeks and then went home the end of February once her home was modified and had been doing well until she was admitted to 4th floor with sepsis and acute exacerbation of asthma and the source was the lower extremity ulcers that caused beta Strep septicemia so the ulcers have been managed by Dr Salgado and patient was placed on Vancomycin and will complete that Saturday. Her PLOF was independent at home and currently she is 1-2 person assist. Barriers to returning home alone will be ambulating and ability to perform ADL's which due to habitus will require a estimated 14 days stay. Her asthma responds to her ICS inhaler along with Neb treatments and the catheter will be removed since IVF have been DC'ed and incontinence care will be provided. Subjective/Events-last exam Off oxygen in the CPAP and slept well last night Doing well since fluid losses Dressing changes monitored by Dr Salgado Participating in therapy to improve ambulation and ADLs. Checked meds and labs. Reviewed all therapy notes. Dietary made changes to selections to facilitate some weight loss if possible during her stay here Review of Systems General: Fatigue Pulmonary: Dyspnea Musculoskeletal: leg pain Objective Exam Vital Signs Vital Signs Date Time Temp Pulse Resp B/P (MAP) Pulse Ox O2 Delivery O2 Flow Rate FiO2 07/04/18 07:15 92 Room Air 07/04/18 06:23 98.2 75 18 167/74 (105) 07/02/18 08:12 2.00 07/01/18 15:01 21 Capillary Refill : General Appearance: No Apparent Distress, WD/WN, Chronically ill, Obese HEENT: PERRL/EOMI, Normal ENT Inspection, Pharynx Normal, Moist Mucous Membranes Neck: Full Range of Motion, Normal Inspection, Non Tender, Supple Respiratory: Chest Non Tender, Lungs Clear, Normal Breath Sounds, No Accessory Muscle Use, No Respiratory Distress Cardiovascular: No Gallop, No JVD, No Murmur, Irregularly Irregular Gastrointestinal: Normal Bowel Sounds, No Organomegaly, No Pulsatile Mass, Non Tender, Soft Back: Normal Inspection, No CVA Tenderness, No Vertebral Tenderness Extremity: Normal Capillary Refill, Normal Inspection, Normal Range of Motion, Non Tender, No Calf Tenderness, Pedal Edema Neurologic/Psychiatric: Alert, Oriented x3, No Motor/Sensory Deficits, Normal Mood/Affect, gluing machine operator II-XII Norm as Tested, Abnormal Gait, Motor Weakness (4/5 all extremities) Skin: Normal Color, Warm/Dry, Other (right lower leg dressing intact over ulceration) Lymphatic: No Adenopathy Results/Procedures Lab Patient resulted labs reviewed. Assessment/Plan Assessment and Plan Assess & Plan/Chief Complaint (1) Beta-hemolytic group A streptococcal sepsis- completed abx of Vanc Status: Acute (2) Ulcers of both lower extremities-Dr Salgado is appreciated Status: Acute (3) Anemia- consulting her Electrical Maintenance Engineer Dr Troncoso Status: Chronic (4) ADITI on CPAP Status: Chronic (5) Hypertension Status: Chronic (6) Diabetes Status: Chronic (7) Wheezing- improved today Status: Acute (8) Asthma Status: Chronic (9) Hypotension Status: Resolved (10) Arthritis Status: Chronic (11) Osteoporosis Status: Chronic (12) Obesity Status: Chronic (13) Debility Status: Acute (14) Lymphedema Status: Chronic Plan: IRF protocol Home meds Nebs to continue which keep lungs clear Weaned O2 Ambulate with assistance Safety education to prevent falls Patient will return home at [place] s/p IV Vanc treatment (1) Debility (2) Osteoporosis (3) Arthritis (4) Lymphedema (5) Wheezing (6) Obesity (7) Asthma (8) ADITI on CPAP (9) Anemia (10) Diabetes (11) Hypertension (12) Hypotension Resolution Date/Time: 06/25/18 @ 20:17 (13) Ulcers of both lower extremities (14) Beta-hemolytic group A streptococcal sepsis Clinical Quality Measures DVT/VTE Risk/Contraindication: Risk Factor Score Per Nursin RFS Level Per Nursing on Admit: 4+=Very High NELIA MCKEON DO Jul 04, 2018 08:35
--- NOTE | 2018-07-04 09:09 | Physical Therapy Daily Note ---
PT Daily Note-Current Subjective Pt. feels she is making progress Pain Location: No Pain Reported Mental Status Patient Orientation: Normal For Age Transfers Therapy Code Descriptions/Definitions Functional [place] Measure: 0=Not Assessed/NA 4=Minimal Assistance 1=Total Assistance 5=Supervision or Setup 2=Maximal Assistance 6=Modified [place] 3=Moderate Assistance 7=Complete [place] Therapy Quality Codes: 6 Independent with activity with or without an assistive device 5 Patient requires set up or clean up by helper. Patient completes activity by themselves 4 Supervision or touching assist (CGA). [place] provide cues , steadying assist 3 The helper provides less than half the effort to complete the activity 2 The helper provides more than half the effort to complete the activity 1 Dependent. The helper does all the effort to complete an activity 7 Patient refused to complete or attempt activity 9 The patient did not perform the activity before the current illness or injury 88 Not attempted due to Medical conditions or safety concerns Transfers (B, C, W/C) (FIM): 6 Scootin Rollin Supine to/from Sit: 6 Sit to/from Stand: 6 Bed to/from Chair: 6 Weight Bearing Right Lower Extremity: Right Full Weight Bearing Left Lower Extremity: Left Full Weight Bearing Gait Training Does the Patient Walk?: Yes Gait (FIM): 5 Distance (FIM): 3=150 ft (175x2) Gait Level of Assist: 5 Gait Persons Needed: 1 Gait Assistive Device: FWW pt. near up ad becca status Exercises Supine Ex: Ankle pumps, Quad Set, Rolling, Glut sets, Heel Slides, Short Arc Quads, Scooting, Straight leg raise, Hip abd/add Supine Reps: 15 Seated Therapy Exercises: Ankle pumps, Sit to stand, Long arc quads Seated Reps: 12 Standing: Heel/toe raises, Marching Standing Reps: 15 Treatments emphasis on TRFs left and right sit to sup etc Assessment Current Status: Good Progress making progress consistently, less SOB, less need for rest etc, more funct indep PT Enhanced Environmental Operator Goals Long-Term Goals PT Enhanced Environmental Operator Goals Time Frame: Jul 19, 2018 Transfers (B,C,W/C) (FIM): 6 Sit to Lying (QC): 6 Lying-Sitting on Side/Bed(QC): 6 Sit to Stand (QC): 6 Rollin Roll Left to Right (QC): 6 Chair/Mbu-nu-Tvjtl Xfer(QC): 6 Car Transfer (QC): 6 Does the Patient Walk: Yes Gait (FIM): 2 Gait distance (FIM): 7=960-25 ft Distance: 100' Walk 10 feet (QC): 6 Walk 10ft-Uneven Surface(QC): 6 Walk 50ft with 2 Turns (QC): 6 Walk 150 ft (QC): 9 Gait Level of Assist: 6 Gait Assistive Device: FWW # of Steps: 1 1 Step (curb) (QC): 5 4 Steps (QC): 9 12 Steps (QC): 9 Stairs Level Of Assist: 5 Picking up an Object (QC): 5 PT Plan Treatment/Plan Treatment Plan: Continue Plan of Care Treatment Plan: Bed Mobility, Education, Functional Activity Yimi, Functional Strength, Group Therapy, Gait, Safety, Therapeutic Exercise, Transfers Treatment Duration: Jul 19, 2018 Frequency: At least 5 of 7 days/Wk (IRF) Estimated Hrs Per Day: 1.5 hours per day Patient and/or Family Agrees t: Yes Safety Risks/Education Patient Education: Gait Training, Transfer Techniques, Correct Positioning, Disease Process, Safety Issues Teaching Recipient: Patient Teaching Methods: Demonstration, Discussion Response to Teaching: Verbalize Understanding, Return Demonstration, Reinforcement Needed Time/GCodes Time In: 800 Time Out: 900 Total Billed Treatment Time: 60 Total Billed Treatment 1,EX25m,GT20m,FA15m G Codes Necessary: WERNER Leiva PTA Jul 04, 2018 09:08
--- NOTE | 2018-07-04 12:08 | Physical Therapy Daily Note ---
PT Daily Note-Current Subjective Pt laying Supine in bed upon arrival. Pt agrees to earlier pm PT tx. Pain Location: No Pain Reported Mental Status Patient Orientation: Person, Place, Time, Situation Transfers Therapy Code Descriptions/Definitions Functional [place] Measure: 0=Not Assessed/NA 4=Minimal Assistance 1=Total Assistance 5=Supervision or Setup 2=Maximal Assistance 6=Modified [place] 3=Moderate Assistance 7=Complete [place] Therapy Quality Codes: 6 Independent with activity with or without an assistive device 5 Patient requires set up or clean up by helper. Patient completes activity by themselves 4 Supervision or touching assist (CGA). [place] provide cues , steadying assist 3 The helper provides less than half the effort to complete the activity 2 The helper provides more than half the effort to complete the activity 1 Dependent. The helper does all the effort to complete an activity 7 Patient refused to complete or attempt activity 9 The patient did not perform the activity before the current illness or injury 88 Not attempted due to Medical conditions or safety concerns Scootin Rollin Supine to/from Sit: 4 Sit to/from Stand: 5 Sit to Stand (QC): 5 Weight Bearing Right Lower Extremity: Right Full Weight Bearing Left Lower Extremity: Left Full Weight Bearing Gait Training Does the Patient Walk?: Yes Distance (FIM): 3=150 ft Distance: 150' Walk 10 feet (QC): 5 Walk 50 ft with 2 Turns(QC): 5 Walk 150 ft (QC): 5 Gait Level of Assist: 5 Gait Persons Needed: 1 Gait Assistive Device: Walker 4 Wheeled Pt practiced with own 4WW, emphasis on locking brakes as needed and staying w/ in 4WW. Wheelchair Training Does the Pt Use a Wheelchair?: No Treatments Pt transfers from Supine to EOB then EOB to Standing with occasional VC. Pt ambulates in hallway with focus on standing w/in 4WW and locking brakes as needed. Pt returns to room to use restroom at end of tx. Nurse notified that pt is toileting and pt will use call light when finished. Assessment Current Status: Good Progress Pt is improving with less restrictive AD. PT Halfway Goals Halfway Goals PT Halfway Goals Time Frame: Jul 19, 2018 Transfers (B,C,W/C) (FIM): 6 Sit to Lying (QC): 6 Lying-Sitting on Side/Bed(QC): 6 Sit to Stand (QC): 6 Rollin Roll Left to Right (QC): 6 Chair/Dhc-ht-Rbnyq Xfer(QC): 6 Car Transfer (QC): 6 Does the Patient Walk: Yes Gait (FIM): 2 Gait distance (FIM): 4=408-20 ft Distance: 100' Walk 10 feet (QC): 6 Walk 10ft-Uneven Surface(QC): 6 Walk 50ft with 2 Turns (QC): 6 Walk 150 ft (QC): 9 Gait Level of Assist: 6 Gait Assistive Device: FWW # of Steps: 1 1 Step (curb) (QC): 5 4 Steps (QC): 9 12 Steps (QC): 9 Stairs Level Of Assist: 5 Picking up an Object (QC): 5 PT Plan Problem List Problem List: Activity Tolerance, Functional Strength, Gait Treatment/Plan Treatment Plan: Continue Plan of Care Treatment Plan: Bed Mobility, Education, Functional Activity Yimi, Functional Strength, Group Therapy, Gait, Safety, Therapeutic Exercise, Transfers Treatment Duration: Jul 19, 2018 Frequency: At least 5 of 7 days/Wk (IRF) Estimated Hrs Per Day: 1.5 hours per day Patient and/or Family Agrees t: Yes Safety Risks/Education Patient Education: Gait Training, Transfer Techniques, Correct Positioning, Safety Issues Teaching Recipient: Patient Teaching Methods: Discussion Response to Teaching: Verbalize Understanding Time/GCodes Time In: 1130 Time Out: 1200 Total Billed Treatment Time: 30 Total Billed Treatment 1, FA (10m) & GT (20m) G Codes Necessary: RENNY Small NURSING INFORMATION SYSTEMS COORDINATOR Jul 04, 2018 12:08
--- NOTE | 2018-07-04 13:10 | Occupational Ther Daily Note ---
OT Current Status-Daily Note Subjective pt agreed to OT TX session with focus on increase activity tolerance for daily activities, and increasing independence with toileting. Mental Status/Objective Patient Orientation: Normal For Age Therapy Code Descriptions/Definitions Functional [place] Measure: 0=Not Assessed/NA 4=Minimal Assistance 1=Total Assistance 5=Supervision or Setup 2=Maximal Assistance 6=Modified [place] 3=Moderate Assistance 7=Complete [place] ADL-Treatment Therapy Code Descriptions/Definitions Functional [place] Measure: 0=Not Assessed/NA 4=Minimal Assistance 1=Total Assistance 5=Supervision or Setup 2=Maximal Assistance 6=Modified [place] 3=Moderate Assistance 7=Complete [place] Therapy Quality Codes: 6 Independent with activity with or without an assistive device 5 Patient requires set up or clean up by helper. Patient completes activity by themselves 4 Supervision or touching assist (CGA). [place] provide cues , steadying assist 3 The helper provides less than half the effort to complete the activity 2 The helper provides more than half the effort to complete the activity 1 Dependent. The helper does all the effort to complete an activity 7 Patient refused to complete or attempt activity 9 The patient did not perform the activity before the current illness or injury 88 Not attempted due to Medical conditions or safety concerns Grooming (FIM): 6 (standing at sink using RW) Oral Hygiene (QC): 5 Toileting (FIM): 6 (use of AE) Toileting Hygiene (QC): 5 Toilet/Commode Transfer (FIM): 5 (SPV for safety/ balance) Toilet Transfer (QC): 4 Other Treatment pt demo ability to perform functional mobility to TX gym . pt education on HEP for UE strengthening with RED theraband. pt demo ability to perform 12X 2 shoulder flexion/ ADD/ ABD, 12X2 elbow flext/ extension, with 1 minutes rest break between set secondary to activity tolerance. pt education on pursed lip breathing while perform task. pt verbalized and demo understanding correctly. pt then demo ability to maintain static standing balance for 12 min 47 secondary while completing table top game in prep for standing while grooming. pt education on recognizing sign/ symptoms of fatigue. pt required MIN VC for rest break. pt then performed functional mobility back to room approx 75 ft with close supervision using RW. pt perform bed mobility with close supervision requiring additional timing and VC for proper positioning. Education OT Patient Education: Energy conservation, Modified ADL techniques, Progress toward Goal/Update tx plan, Purpose of tx/functional activities, Safety issues Teaching Recipient: Patient Teaching Methods: Demonstration, Discussion Response to Teaching: Verbalize Understanding, Return Demonstration OT Short Term Goals Short Term Goals Time Frame: Jul 11, 2018 Additional Short Term Goals: 1-Demonstrate ADL Tasks, 2-Verbalize Understanding , 3-ImproveStrength/Yimi 1=Demonstrate adherence to instructed precautions during ADL tasks. 2=Patient will verbalize/demonstrate understanding of assistive devices/ modifications for ADL. 3=Patient will improve strength/tolerance for activity to enable patient to perform ADL's. OT Residential Goals Cinetechnician Goals Time Frame: July 25, 2018 Eating (FIM): 6 Eating (QC): 6 Groomin Oral Hygiene (QC): 6 Bathing(FIM): 6 Bathing Location: L Arm, R Arm, L Upper Leg, R Upper Leg, L Lower Leg ( including foot), R Lower Leg (including foot), Chest, Abdomen, Buttocks, Perineal Area Shower/Bathe Self (QC): 6 Upper Body Dressing(FIM): 6 Upper Body Dressing (QC): 6 Lower Body Dressing(FIM): 6 Lower Body Dressing (QC): 6 On/Off Footwear (QC): 6 Toileting(FIM): 6 Toileting Hygiene (QC): 6 Transfers (B,C,W/C) (FIM): 6 Toilet/Commode Transfer(FIM): 6 Toilet/Commode Transfer (QC): 6 Tub Transfer(FIM): 4 Shower Transfer(FIM): 6 Additional Goals: 1-Demonstrate ADL Tasks, 2-Verbalize Understanding, 3- ImproveStrength/Yimi 1=Demonstrate adherence to instructed precautions during ADL tasks. 2=Patient will verbalize/demonstrate understanding of assistive devices/ modifications for ADL. 3=Patient will improve strength/tolerance for activity to enable patient to perform ADL's. OT Education/Plan Problem List/Assessment Assessment: Decreased Activ Tolerance, Decreased UE Strength, Impaired Funct Balance, Impaired Self-Care Skills pt has made gains toward goals. pt continues to demo functional limitations affecting areas of ADLS/ functional transfers with deficits in: decrease activity tolerance/ endurance. pt would benefit from additional OT services to increase overall independence with ADLS/ functional transfers and for safety transition to home. Discharge Recommendations Plan/Recommendations: Continue POC Barriers to Progress activity tolerance Patient/Family Goals "be independent" Treatment Plan/Plan of Care Treatment,Training & Education: Yes Patient would benefit from OT for education, treatment and training to promote independence in ADL's, mobility, safety and/or upper extremity function for ADL' s. Plan of Care: ADL Retraining, Functional Mobility, Group Exercise/Act as Ind, UE Funct Exercise/Act, UE Neuromus Re-Ed/Coord Treatment Duration: July 25, 2018 Frequency: At least 5 of 7 days/Wk (IRF) Estimated Hrs Per Day: 1.5 hours per day Agreement: Yes Rehab Potential: Good Time/GCodes Start Time: 09:00 Stop Time: 10:30 Billed Treatment Time ADL 15 minutes, 1 unit FA 75 minutes, 5 units LILIYA GUTIÉRREZ OT Jul 04, 2018 13:10
[2018-07-04] MEDS: A & D OINT 113 GM TUBE TOP SCH ×2 (16:17→22:19)
[2018-07-04] MEDS: IRON SUCROSE 200 MG/10 ML (VENOFER) VIAL IV SCH (16:48)
[2018-07-04 18:35] VITALS: BP 145/70
[2018-07-04] MEDS: ATORVASTATIN 40 MG (LIPITOR) TABLET PO SCH (22:18)
[2018-07-04] MEDS: MONTELUKAST 10 MG (SINGULAIR) TAB PO SCH (22:18)
[2018-07-05 04:30] VITALS: BP 167/74
[2018-07-05 06:00] VITALS: BP 161/76
[2018-07-05] MEDS: inSUlin ASPART (NovoLOG) 1 UNIT/0.01 ML (CHARGE PER UNIT) SC SCH ×4 (07:23→22:44)
[2018-07-05] MEDS: CATHETER FLUSH 10 ML SYR IV SCH ×3 (07:23→23:26)
[2018-07-05] MEDS: FOLIC ACID 1 MG TAB PO SCH (07:23)
[2018-07-05] MEDS: KCL 10 MEQ TAB (MICRO K) PO SCH (07:23)
[2018-07-05] MEDS: RT-ADVAIR HFA 115/21 MCG PER PUFF IH SCH ×2 (07:47→19:11)
[2018-07-05] MEDS: RT-ALBUTEROL SULF 2.5 MG/3 ML PRE-MIX VIAL INH SCH ×2 (07:47→19:11)
[2018-07-05] MEDS: AMIODARONE 200 MG (CORDARONE) TAB PO SCH (07:58)
[2018-07-05] MEDS: MAGNESIUM OXIDE (MAG-OX)400 MG TAB PO SCH (07:58)
[2018-07-05] MEDS: FUROSEMIDE 40 MG (LASIX) TAB PO SCH (07:58)
[2018-07-05] MEDS: APIXABAN 5 MG (ELIQUIS) TABLET PO SCH ×2 (07:58→20:17)
[2018-07-05] MEDS: FUROSEMIDE 20 MG (LASIX) TAB PO SCH (07:58)
[2018-07-05] MEDS: meTOproloL SUCCINATE 50 MG (TOPROL XL) TAB PO SCH (07:58)
[2018-07-05] MEDS: A & D OINT 113 GM TUBE TOP SCH ×2 (07:59→20:19)
--- NOTE | 2018-07-05 10:56 | Physical Therapy Daily Note ---
PT Daily Note-Current Subjective Pt sitting in restroom upon arrival. Nurse was assisting and DINING ROOM BUSSER assisted after Nurse left. Pt agrees to PT. Pain Numeric Pain Scale: 3 Location: Right Location Body Site: Calf Pain Description: Ache Mental Status Patient Orientation: Person, Place, Time, Situation Transfers Therapy Code Descriptions/Definitions Functional [place] Measure: 0=Not Assessed/NA 4=Minimal Assistance 1=Total Assistance 5=Supervision or Setup 2=Maximal Assistance 6=Modified [place] 3=Moderate Assistance 7=Complete [place] Therapy Quality Codes: 6 Independent with activity with or without an assistive device 5 Patient requires set up or clean up by helper. Patient completes activity by themselves 4 Supervision or touching assist (CGA). [place] provide cues , steadying assist 3 The helper provides less than half the effort to complete the activity 2 The helper provides more than half the effort to complete the activity 1 Dependent. The helper does all the effort to complete an activity 7 Patient refused to complete or attempt activity 9 The patient did not perform the activity before the current illness or injury 88 Not attempted due to Medical conditions or safety concerns Scootin Sit to/from Stand: 5 Sit to Stand (QC): 5 Weight Bearing Right Lower Extremity: Right Full Weight Bearing Left Lower Extremity: Left Full Weight Bearing Gait Training Does the Patient Walk?: Yes Distance (FIM): 1=up to 49 ft Distance: 20' Walk 10 feet (QC): 5 Gait Level of Assist: 5 Gait Persons Needed: 1 Gait Assistive Device: FWW Pt was with very slow trever. Treatments DINING ROOM BUSSER assists pt with donning brief and get pt's toileting supplies. Pt completes pericare. Pt ambulates back to recliner and DINING ROOM BUSSER assists with repositioning to comfort. Pt asks questions regarding bathing schedule due to wound dressing and plan for the next few days to ready pt for home, D/C (07/09). Assessment Current Status: Good Progress Pt limited by swelling of BLE. PT Specialty Development Consultant Goals Long-Term Goals PT Long-Term Goals Time Frame: Jul 19, 2018 Transfers (B,C,W/C) (FIM): 6 Sit to Lying (QC): 6 Lying-Sitting on Side/Bed(QC): 6 Sit to Stand (QC): 6 Rollin Roll Left to Right (QC): 6 Chair/Jmm-qt-Cvhbs Xfer(QC): 6 Car Transfer (QC): 6 Does the Patient Walk: Yes Gait (FIM): 2 Gait distance (FIM): 1=942-09 ft Distance: 100' Walk 10 feet (QC): 6 Walk 10ft-Uneven Surface(QC): 6 Walk 50ft with 2 Turns (QC): 6 Walk 150 ft (QC): 9 Gait Level of Assist: 6 Gait Assistive Device: FWW # of Steps: 1 1 Step (curb) (QC): 5 4 Steps (QC): 9 12 Steps (QC): 9 Stairs Level Of Assist: 5 Picking up an Object (QC): 5 PT Plan Problem List Problem List: Activity Tolerance, Functional Strength, Gait Treatment/Plan Treatment Plan: Continue Plan of Care Treatment Plan: Bed Mobility, Education, Functional Activity Yimi, Functional Strength, Group Therapy, Gait, Safety, Therapeutic Exercise, Transfers Treatment Duration: Jul 19, 2018 Frequency: At least 5 of 7 days/Wk (IRF) Estimated Hrs Per Day: 1.5 hours per day Patient and/or Family Agrees t: Yes Safety Risks/Education Patient Education: Correct Positioning, Safety Issues Teaching Recipient: Patient Teaching Methods: Discussion Response to Teaching: Verbalize Understanding Time/GCodes Time In: 1020 Time Out: 1045 Total Billed Treatment Time: 25 Total Billed Treatment 1, FA x2 (25m) G Codes Necessary: RENNY Small DINING ROOM BUSSER Jul 05, 2018 10:56
--- NOTE | 2018-07-05 12:40 | PM&R Progress Note ---
Subjective HPI/CC On Admission Date Seen by Provider: Jul 05, 2018 Time Seen by Provider: 12:15 CC: Debility requiring IRF HPI: This is a 73yoWF clinic patient of Dr Roblero who has multiple medical issues who was admitted to IRF last fall after a debility episode following an acute medical illness and subsequently went to the penitentiary for a several weeks and then went home the end of February once her home was modified and had been doing well until she was admitted to 4th floor with sepsis and acute exacerbation of asthma and the source was the lower extremity ulcers that caused beta Strep septicemia so the ulcers have been managed by Dr Salgado and patient was placed on Vancomycin and will complete that Saturday. Her PLOF was independent at home and currently she is 1-2 person assist. Barriers to returning home alone will be ambulating and ability to perform ADL's which due to habitus will require a estimated 14 days stay. Her asthma responds to her ICS inhaler along with Neb treatments and the catheter will be removed since IVF have been [place]'ed and incontinence care will be provided. Subjective/Events-last exam CPAP used without difficulties Doing well since fluid losses and continues to have improvement in lower extremity edema Dressing changes monitored by Dr Salgado and the wounds are much improved Participating in therapy to improve ambulation and ADLs and she will go home late this week to home with HH Checked meds and labs. Reviewed all therapy notes. Dietary made changes tolerated well No midline needed remains with peripheral line intact BM+ Review of Systems General: Fatigue Objective Exam Vital Signs Vital Signs Date Time Temp Pulse Resp B/P (MAP) Pulse Ox O2 Delivery O2 Flow Rate FiO2 07/06/18 07:01 Room Air 07/06/18 06:59 92 07/06/18 05:01 99.8 81 18 113/66 (82) 07/02/18 08:12 2.00 07/01/18 15:01 21 Capillary Refill : Less Than 3 Seconds General Appearance: No Apparent Distress, WD/WN, Chronically ill, Obese HEENT: PERRL/EOMI, Normal ENT Inspection, Pharynx Normal, Moist Mucous Membranes Neck: Full Range of Motion, Normal Inspection, Non Tender, Supple Respiratory: Chest Non Tender, Lungs Clear, Normal Breath Sounds, No Accessory Muscle Use, No Respiratory Distress Cardiovascular: No Gallop, No JVD, No Murmur, Irregularly Irregular Gastrointestinal: Normal Bowel Sounds, No Organomegaly, No Pulsatile Mass, Non Tender, Soft Back: Normal Inspection, No CVA Tenderness, No Vertebral Tenderness Extremity: Normal Capillary Refill, Normal Inspection, Normal Range of Motion, Non Tender, No Calf Tenderness, Pedal Edema Neurologic/Psychiatric: Alert, Oriented x3, No Motor/Sensory Deficits, Normal Mood/Affect, sleeve maker II-XII Norm as Tested, Abnormal Gait, Motor Weakness (4/5 all extremities) Skin: Normal Color, Warm/Dry, Other (right lower leg dressing intact over ulceration) Lymphatic: No Adenopathy Results/Procedures Lab Patient resulted labs reviewed. Assessment/Plan Assessment and Plan Assess & Plan/Chief Complaint (1) Beta-hemolytic group A streptococcal sepsis- completed abx of Vanc Status: Acute (2) Ulcers of both lower extremities-Dr Salgado is appreciated Status: Acute (3) Anemia- consulting her Bass Fisher Dr Troncoso Status: Chronic (4) ADITI on CPAP Status: Chronic (5) Hypertension Status: Chronic (6) Diabetes Status: Chronic (7) Wheezing- improved Status: Acute (8) Asthma Status: Chronic (9) Hypotension Status: Resolved (10) Arthritis Status: Chronic (11) Osteoporosis Status: Chronic (12) Obesity Status: Chronic (13) Debility Status: Acute (14) Lymphedema Status: Chronic Plan: IRF protocol Home meds Nebs to continue which keep lungs clear Weaned O2 successfully Ambulate with assistance Safety education to prevent falls Patient [place] later this [place] s/p IV Vanc treatment (1) Debility (2) Osteoporosis (3) Arthritis (4) Lymphedema (5) Wheezing (6) Obesity (7) Asthma (8) ADITI on CPAP (9) Anemia (10) Diabetes (11) Hypertension (12) Hypotension Resolution Date/Time: 06/25/18 @ 20:17 (13) Ulcers of both lower extremities (14) Beta-hemolytic group A streptococcal sepsis Clinical Quality Measures DVT/VTE Risk/Contraindication: Risk Factor Score Per Nursin RFS Level Per Nursing on Admit: 4+=Very High NELIA MCKEON DO Jul 05, 2018 12:40
[2018-07-05] MEDS: ACETAMINOPHEN 500 MG TAB (TYLENOL) PO PRN ×2 (14:16→23:27)
--- NOTE | 2018-07-05 14:51 | Wound Care Assessment ---
Wound Care Assessment Date Seen by Provider: Jul 05, 2018 Time Seen by Provider: 14:30 Chief Complaint R calf ulcers. HPI 73-year-old female with R calf venous insufficiency ulcers admitted for related cellulitis. The cellulitis is resolved. The wounds are improved by report. Continue honey alginate dressings. Past Medical History: Admits Diabetes Type II, Admits Heart Disease, Admits Peripheral Artery Disease Smoking Status: Never a Smoker Recreational Drug Use: No Alcohol Use: Denies Use Review of Systems Pulmonary: No Dyspnea Cardiovascular: No: Chest Pain Exam Vital Signs Date Time Temp Pulse Resp B/P (MAP) Pulse Ox O2 Delivery O2 Flow Rate FiO2 07/05/18 07:52 Room Air 07/05/18 07:47 93 07/05/18 06:00 98.0 78 20 161/76 (104) 07/02/18 08:12 2.00 07/01/18 15:01 21 Capillary Refill : Less Than 3 Seconds HEENT: normal ENT inspection Neck: normal inspection Cardiovascular: regular rate, rhythm Respiratory: normal breath sounds Skin: other (R leg dressings recently done and intact.) Results Laboratory Tests 07/04/18 15:40: Glucometer 123H 07/04/18 20:58: Glucometer 151H 07/05/18 07:22: Glucometer 116H 07/05/18 11:14: Glucometer 174H Assessment/Plan/Dx 1. R calf ulcers x 3, full thickness without exposed support structures. 2. Venous insufficiency, BLE. 3. Diabetes with ulcer and neuropathy. 4. Peripheral arterial disease, with R calf ulcer. 5. Morbid obesity. Plan: Continue elevation and [place] honey alginate dressings. OLIVER COBOS MD Jul 05, 2018 14:51
[2018-07-05 16:08] VITALS: BP 120/70
[2018-07-05] MEDS: MONTELUKAST 10 MG (SINGULAIR) TAB PO SCH (20:17)
[2018-07-05] MEDS: ATORVASTATIN 40 MG (LIPITOR) TABLET PO SCH (20:17)
[2018-07-06 05:01] VITALS: BP 113/66
[2018-07-06] MEDS: KCL 10 MEQ TAB (MICRO K) PO SCH (06:19)
[2018-07-06] MEDS: inSUlin ASPART (NovoLOG) 1 UNIT/0.01 ML (CHARGE PER UNIT) SC SCH ×4 (06:19→20:33)
[2018-07-06] MEDS: FOLIC ACID 1 MG TAB PO SCH (06:19)
[2018-07-06] MEDS: CATHETER FLUSH 10 ML SYR IV SCH ×3 (06:20→20:33)
[2018-07-06] MEDS: RT-ADVAIR HFA 115/21 MCG PER PUFF IH SCH ×2 (06:59→21:33)
[2018-07-06] MEDS: RT-ALBUTEROL SULF 2.5 MG/3 ML PRE-MIX VIAL INH SCH ×2 (06:59→21:33)
[2018-07-06 09:41] VITALS: BP 131/65
[2018-07-06] MEDS: FUROSEMIDE 40 MG (LASIX) TAB PO SCH (09:41)
[2018-07-06] MEDS: meTOproloL SUCCINATE 50 MG (TOPROL XL) TAB PO SCH (09:41)
[2018-07-06] MEDS: AMIODARONE 200 MG (CORDARONE) TAB PO SCH (09:42)
[2018-07-06] MEDS: FUROSEMIDE 20 MG (LASIX) TAB PO SCH (09:42)
[2018-07-06] MEDS: APIXABAN 5 MG (ELIQUIS) TABLET PO SCH ×2 (09:42→20:33)
[2018-07-06] MEDS: MAGNESIUM OXIDE (MAG-OX)400 MG TAB PO SCH (09:43)
[2018-07-06] MEDS: A & D OINT 113 GM TUBE TOP SCH ×2 (09:45→20:33)
--- NOTE | 2018-07-06 11:42 | PM&R Progress Note ---
Subjective HPI/CC On Admission Date Seen by Provider: Jul 06, 2018 Time Seen by Provider: 12:15 CC: Debility requiring IRF HPI: This is a 73yoWF clinic patient of Dr Roblero who has multiple medical issues who was admitted to IRF last fall after a debility episode following an acute medical illness and subsequently went to the care home for a several weeks and then went home the end of February once her home was modified and had been doing well until she was admitted to 4th floor with sepsis and acute exacerbation of asthma and the source was the lower extremity ulcers that caused beta Strep septicemia so the ulcers have been managed by Dr Salgado and patient was placed on Vancomycin and will complete that Saturday. Her PLOF was independent at home and currently she is 1-2 person assist. Barriers to returning home alone will be ambulating and ability to perform ADL's which due to habitus will require a estimated 14 days stay. Her asthma responds to her ICS inhaler along with Neb treatments and the catheter will be removed since IVF have been ID'ed and incontinence care will be provided. Subjective/Events-last exam CPAP compliant at night and slept well last night Temp 99.8 this morning but her room was very hot and no recurrence Doing well since fluid losses and continues to have improvement in lower extremity edema and diuresis continues with good results Dressing changes monitored by Dr Salgado and the wounds are much improved Talked about arterial and venous studies on her lower legs and will complete those as an outpatient Participating in therapy to improve ambulation and ADLs and she will go home late this week to home with and needs hospital bed Checked meds and labs. Reviewed all therapy notes. Dietary made changes tolerated well No midline needed remains with peripheral line intact BM+ Review of Systems General: Fatigue Musculoskeletal: leg pain Objective Exam Vital Signs Vital Signs Date Time Temp Pulse Resp B/P (MAP) Pulse Ox O2 Delivery O2 Flow Rate FiO2 07/06/18 15:40 98.4 74 16 127/68 (87) 95 Room Air 07/02/18 08:12 2.00 07/01/18 15:01 21 Capillary Refill : Less Than 3 Seconds General Appearance: No Apparent Distress, WD/WN, Chronically ill, Obese HEENT: PERRL/EOMI, Normal ENT Inspection, Pharynx Normal, Moist Mucous Membranes Neck: Full Range of Motion, Normal Inspection, Non Tender, Supple Respiratory: Chest Non Tender, Lungs Clear, Normal Breath Sounds, No Accessory Muscle Use, No Respiratory Distress Cardiovascular: No Gallop, No JVD, No Murmur, Irregularly Irregular Gastrointestinal: Normal Bowel Sounds, No Organomegaly, No Pulsatile Mass, Non Tender, Soft Back: Normal Inspection, No CVA Tenderness, No Vertebral Tenderness Extremity: Normal Capillary Refill, Normal Inspection, Normal Range of Motion, Non Tender, No Calf Tenderness, Pedal Edema Neurologic/Psychiatric: Alert, Oriented x3, No Motor/Sensory Deficits, Normal Mood/Affect, cabinet abrasive sandblaster II-XII Norm as Tested, Abnormal Gait, Motor Weakness (4/5 all extremities) Skin: Normal Color, Warm/Dry, Other (right lower leg dressing intact over ulceration) Lymphatic: No Adenopathy Results/Procedures Lab Patient resulted labs reviewed. Assessment/Plan Assessment and Plan Assess & Plan/Chief Complaint (1) Beta-hemolytic group A streptococcal sepsis- completed abx of Vanc Status: Acute (2) Ulcers of both lower extremities-Dr Salgado is appreciated Status: Acute (3) Anemia- consulting her Security Monitor Dr Troncoso Status: Chronic (4) ADITI on CPAP Status: Chronic (5) Hypertension Status: Chronic (6) Diabetes Status: Chronic (7) Wheezing- improved Status: Acute (8) Asthma Status: Chronic (9) Hypotension Status: Resolved (10) Arthritis Status: Chronic (11) Osteoporosis Status: Chronic (12) Obesity Status: Chronic (13) Debility Status: Acute (14) Lymphedema Status: Chronic Plan: IRF protocol Home meds Nebs to continue which keep lungs clear Weaned O2 successfully and does not need that at [place] Ambulate with assistance Safety education to prevent falls Patient will return [place] later this week with hospital bed s/p IV Vanc treatment Venous and arterial USG as outpatient (1) Debility (2) Osteoporosis (3) Arthritis (4) Lymphedema (5) Wheezing (6) Obesity (7) Asthma (8) ADITI on CPAP (9) Anemia (10) Diabetes (11) Hypertension (12) Hypotension Resolution Date/Time: 06/25/18 @ 20:17 (13) Ulcers of both lower extremities (14) Beta-hemolytic group A streptococcal sepsis Clinical Quality Measures DVT/VTE Risk/Contraindication: Risk Factor Score Per Nursin RFS Level Per Nursing on Admit: 4+=Very High NELIA MCKEON DO Jul 06, 2018 11:41
[2018-07-06] MEDS: ACETAMINOPHEN 500 MG TAB (TYLENOL) PO PRN ×2 (12:08→22:14)
[2018-07-06 15:40] VITALS: BP 127/68
[2018-07-06] MEDS: IRON SUCROSE 200 MG/10 ML (VENOFER) VIAL IV SCH ×2 (17:00→17:25)
--- NOTE | 2018-07-06 19:00 | NUR ---
At administration time for Iron, IV, found that IV site was no longer patent. IV attempted in Left Bicep, unsuccessful. Patient would like to wait until tomorrow to talk to Dr. Troncoso and Dr. Kate to discuss other access options, such as Port or PICC. Iron held at this time. Will discuss options with Physicians in the morning per patient request.
[2018-07-06] MEDS: ATORVASTATIN 40 MG (LIPITOR) TABLET PO SCH (20:33)
[2018-07-06] MEDS: MONTELUKAST 10 MG (SINGULAIR) TAB PO SCH (20:33)
[2018-07-07 05:10] VITALS: BP 118/62
[2018-07-07] MEDS: CATHETER FLUSH 10 ML SYR IV SCH ×3 (05:34→22:00)
[2018-07-07] MEDS: inSUlin ASPART (NovoLOG) 1 UNIT/0.01 ML (CHARGE PER UNIT) SC SCH ×4 (05:51→21:02)
[2018-07-07] MEDS: KCL 10 MEQ TAB (MICRO K) PO SCH (06:02)
[2018-07-07] MEDS: FOLIC ACID 1 MG TAB PO SCH (06:02)
[2018-07-07] MEDS: ACETAMINOPHEN 500 MG TAB (TYLENOL) PO PRN ×2 (06:03→21:51)
[2018-07-07] MEDS: RT-ALBUTEROL SULF 2.5 MG/3 ML PRE-MIX VIAL INH SCH ×4 (07:07→23:19)
[2018-07-07] MEDS: RT-ADVAIR HFA 115/21 MCG PER PUFF IH SCH ×4 (07:08→23:19)
--- NOTE | 2018-07-07 08:47 | PM&R Progress Note ---
Subjective HPI/CC On Admission Date Seen by Provider: Jul 07, 2018 Time Seen by Provider: 08:15 CC: Debility requiring IRF HPI: This is a 73yoWF clinic patient of Dr Roblero who has multiple medical issues who was admitted to IRF last fall after a debility episode following an acute medical illness and subsequently [facility] to the [facility] a [facility] and then went home the end of February once her home was modified and had been doing well until she was admitted to 4th floor with sepsis and acute exacerbation of asthma and the source was the lower extremity ulcers that caused beta Strep septicemia so the ulcers have been managed by Dr Salgado and patient was placed on Vancomycin and will complete that Saturday. Her PLOF was independent at home and currently she is 1-2 person assist. Barriers to returning home alone will be ambulating and ability to perform ADL's which due to habitus will require a estimated 14 days stay. Her asthma responds to her ICS inhaler along with Neb treatments and the catheter will be removed since IVF have been [place]'ed and incontinence care will be provided. Subjective/Events-last exam Loss peripheral IV so they will reach out to Dr. Troncoso to see if she should have a midline placed or have a [place] port placed of which I discussed with her last week Did not receive the IV iron yesterday as planned because of loss of IV Likely will need a four-wheel walker since she has a four wheel walker at home she will need a front wheel walker Will rent a hospital bed at [place] Denies any significant pain Lower extremity edema is much improved Review of Systems General: Fatigue Objective Exam Vital Signs Vital Signs Date Time Temp Pulse Resp B/P (MAP) Pulse Ox O2 Delivery O2 Flow Rate FiO2 07/07/18 09:00 Room Air 07/07/18 07:08 93 07/07/18 05:10 98.4 77 16 118/62 (80) 07/02/18 08:12 2.00 07/01/18 15:01 21 Capillary Refill : Less Than 3 Seconds General Appearance: No Apparent Distress, WD/WN, Chronically ill, Obese HEENT: PERRL/EOMI, Normal ENT Inspection, Pharynx Normal, Moist Mucous Membranes Neck: Full Range of Motion, Normal Inspection, Non Tender, Supple Respiratory: Chest Non Tender, Lungs Clear, Normal Breath Sounds, No Accessory Muscle Use, No Respiratory Distress Cardiovascular: No Gallop, No JVD, No Murmur, Irregularly Irregular Gastrointestinal: Normal Bowel Sounds, No Organomegaly, No Pulsatile Mass, Non Tender, Soft Back: Normal Inspection, No CVA Tenderness, No Vertebral Tenderness Extremity: Normal Capillary Refill, Normal Inspection, Normal Range of Motion, Non Tender, No Calf Tenderness, Pedal Edema Neurologic/Psychiatric: Alert, Oriented x3, No Motor/Sensory Deficits, Normal Mood/Affect, clearance coordinator II-XII Norm as Tested, Abnormal Gait, Motor Weakness (4/5 all extremities) Skin: Normal Color, Warm/Dry, Other (right lower leg dressing intact over ulceration) Lymphatic: No Adenopathy Results/Procedures Lab Patient resulted labs reviewed. Assessment/Plan Assessment and Plan Assess & Plan/Chief Complaint (1) Beta-hemolytic group A streptococcal sepsis- completed abx of Vanc Status: Acute (2) Ulcers of both lower extremities-Dr Salgado is appreciated Status: Acute (3) Anemia- consulting her Logistics Lead Dr Troncoso Status: Chronic (4) ADITI on CPAP Status: Chronic (5) Hypertension Status: Chronic (6) Diabetes Status: Chronic (7) Wheezing- improved Status: Acute (8) Asthma Status: Chronic (9) Hypotension Status: Resolved (10) Arthritis Status: Chronic (11) Osteoporosis Status: Chronic (12) Obesity Status: Chronic (13) Debility Status: Acute (14) Lymphedema Status: Chronic 15. Poor venous access will place [place] port per Dr Marcos Plan: IRF protocol Home meds Nebs to continue which keep lungs clear Weaned O2 successfully and does not need that at [place] Ambulate with assistance Safety education to prevent falls Patient will return [place] at [place] later this week with hospital bed s/p IV Vanc treatment Venous and arterial USG as outpatient Port placement (1) Debility (2) Osteoporosis (3) Arthritis (4) Lymphedema (5) Wheezing (6) Obesity (7) Asthma (8) ADITI on CPAP (9) Anemia (10) Diabetes (11) Hypertension (12) Hypotension Resolution Date/Time: 06/25/18 @ 20:17 (13) Ulcers of both lower extremities (14) Beta-hemolytic group A streptococcal sepsis Clinical Quality Measures DVT/VTE Risk/Contraindication: Risk Factor Score Per Nursin RFS Level Per Nursing on Admit: 4+=Very High NELIA MCKEON DO Jul 07, 2018 08:47
--- NOTE | 2018-07-07 08:56 | Physical Therapy Daily Note ---
PT Daily Note-Current Subjective Pt. was in bed upon arrival. Pt. agreed to therapy treatment. Pt. had no complaints of pain. Transfers Therapy Code Descriptions/Definitions Functional [place] Measure: 0=Not Assessed/NA 4=Minimal Assistance 1=Total Assistance 5=Supervision or Setup 2=Maximal Assistance 6=Modified [place] 3=Moderate Assistance 7=Complete [place] Therapy Quality Codes: 6 Independent with activity with or without an assistive device 5 Patient requires set up or clean up by helper. Patient completes activity by themselves 4 Supervision or touching assist (CGA). [place] provide cues , steadying assist 3 The helper provides less than half the effort to complete the activity 2 The helper provides more than half the effort to complete the activity 1 Dependent. The helper does all the effort to complete an activity 7 Patient refused to complete or attempt activity 9 The patient did not perform the activity before the current illness or injury 88 Not attempted due to Medical conditions or safety concerns Transfers (B, C, W/C) (FIM): 5 Scootin Supine to/from Sit: 5 Sit to/from Stand: 5 Sit to Lying (QC): 5 Sit to Stand (QC): 5 Weight Bearing Right Lower Extremity: Right Full Weight Bearing Left Lower Extremity: Left Full Weight Bearing Gait Training Does the Patient Walk?: Yes Distance (FIM): 3=150 ft Distance: 150' x 2 Gait Level of Assist: 5 Gait Persons Needed: 1 Gait Assistive Device: FWW Pt. has trunk flexion during ambulation. Pt. had no signs of LOB. Pt. has WBOS secondary to her weight. Wheelchair Training Does the Pt Use a Wheelchair?: No Stair Training Stair Training: Handrails/: 2 handrails Stairs (FIM): 1 #of Steps: 2 Stairs: Pattern: Step to Level of Assist: 4 Pt. used parallel bars to ascend and descend 1 step. Pt. was educated on which foot to go up and down with. Pt. has some crepitus in B LE. Pt. was able to go up and over step 2 times before fatiguing. Exercises Supine Ex: Bridging, Ankle pumps, Glut sets, Heel Slides, Scooting, Straight leg raise, Hip abd/add Supine Reps: 10 Assessment Current Status: Good Progress Pt. responded to therapy well. Pt. showed improvement in transfers. Pt. will continue to benefit from therapy services. PT Penitentiary Goals Penitentiary Goals PT [facility]iary Goals Time Frame: Jul 19, 2018 Transfers (B,C,W/C) (FIM): 6 Sit to Lying (QC): 6 Lying-Sitting on Side/Bed(QC): 6 Sit to Stand (QC): 6 Rollin Roll Left to Right (QC): 6 Chair/[id number] Xfer(QC): 6 Car Transfer (QC): 6 Does the Patient Walk: Yes Gait (FIM): 2 Gait distance (FIM): 1=522-16 ft Distance: 100' Walk 10 feet (QC): 6 Walk 10ft-Uneven Surface(QC): 6 Walk 50ft with 2 Turns (QC): 6 Walk 150 ft (QC): 9 Gait Level of Assist: 6 Gait Assistive Device: FWW # of Steps: 1 1 Step (curb) (QC): 5 4 Steps (QC): 9 12 Steps (QC): 9 Stairs Level Of Assist: 5 Picking up an Object (QC): 5 PT Plan Treatment/Plan Treatment Plan: Continue Plan of Care Treatment Plan: Bed Mobility, Education, Functional Activity Yimi, Functional Strength, Group Therapy, Gait, Safety, Therapeutic Exercise, Transfers Treatment Duration: Jul 19, 2018 Frequency: At least 5 of 7 days/Wk (IRF) Estimated Hrs Per Day: 1.5 hours per day Patient and/or Family Agrees t: Yes Safety Risks/Education Patient Education: Gait Training, Transfer Techniques, Steps, Correct Positioning, Safety Issues Teaching Recipient: Patient Teaching Methods: Discussion Response to Teaching: Verbalize Understanding Time/GCodes Time In: 800 Time Out: 900 Total Billed Treatment Time: 60 Total Billed Treatment 1, GT x 15 min., EX x 35 min.FA10m G Codes Necessary: WERNER Leiva BALLING HEAD TENDER Jul 07, 2018 08:56
[2018-07-07] MEDS: FUROSEMIDE 20 MG (LASIX) TAB PO SCH (09:20)
[2018-07-07] MEDS: APIXABAN 5 MG (ELIQUIS) TABLET PO SCH (09:20)
[2018-07-07] MEDS: A & D OINT 113 GM TUBE TOP SCH ×2 (09:21→21:02)
[2018-07-07] MEDS: MAGNESIUM OXIDE (MAG-OX)400 MG TAB PO SCH (09:21)
[2018-07-07] MEDS: FUROSEMIDE 40 MG (LASIX) TAB PO SCH (09:21)
[2018-07-07] MEDS: AMIODARONE 200 MG (CORDARONE) TAB PO SCH (09:21)
[2018-07-07] MEDS: meTOproloL SUCCINATE 50 MG (TOPROL XL) TAB PO SCH (09:21)
--- NOTE | 2018-07-07 10:18 | Occupational Ther Daily Note ---
OT Current Status-Daily Note Subjective pt sitting in recliner chair upon OT arrival. pt agreed to OT TX Session with focus on increase independence with ADLs. pt stated "I feel more confidant completing these tasks" Mental Status/Objective Therapy Code Descriptions/Definitions Functional [place] Measure: 0=Not Assessed/NA 4=Minimal Assistance 1=Total Assistance 5=Supervision or Setup 2=Maximal Assistance 6=Modified [place] 3=Moderate Assistance 7=Complete [place] ADL-Treatment Therapy Code Descriptions/Definitions Functional [place] Measure: 0=Not Assessed/NA 4=Minimal Assistance 1=Total Assistance 5=Supervision or Setup 2=Maximal Assistance 6=Modified [place] 3=Moderate Assistance 7=Complete [place] Therapy Quality Codes: 6 Independent with activity with or without an assistive device 5 Patient requires set up or clean up by helper. Patient completes activity by themselves 4 Supervision or touching assist (CGA). [place] provide cues , steadying assist 3 The helper provides less than half the effort to complete the activity 2 The helper provides more than half the effort to complete the activity 1 Dependent. The helper does all the effort to complete an activity 7 Patient refused to complete or attempt activity 9 The patient did not perform the activity before the current illness or injury 88 Not attempted due to Medical conditions or safety concerns Eating (FIM): 7 Eating (QC): 6 Grooming (FIM): 7 (standing at sink) Oral Hygiene (QC): 6 Upper Body (FIM): 5 (supervision for safety/ balance while gathering clothing from closet. pt education on placement of clothing on RW. pt verbalized and demo understanding correctly. ) Upper Body Dressing (QC): 4 Lower Body Dressing (FIM): 5 (supervision for safety/ balance while gathering clothing from closet. pt education on placement of clothing on RW. pt verbalized and demo understanding correctly. pt demo ability to use AE to perform LB dressing, (wiliam socks, underpants)) Lower Body Dressing (QC): 4 On/Off Footwear (QC): 5 (use of AE) Toileting (FIM): 4 Toileting Hygiene (QC): 5 Transfers (B, C, W/C) (FIM): 5 Toilet/Commode Transfer (FIM): 5 (use of RW and GB) Toilet Transfer (QC): 4 Education OT Patient Education: Energy conservation, Modified ADL techniques, Progress toward Goal/Update tx plan, Purpose of tx/functional activities, Transfer techniques, Use of adapted equipment Teaching Recipient: Patient Teaching Methods: Demonstration, Discussion Response to Teaching: Verbalize Understanding, Return Demonstration OT Short Term Goals Short Term Goals Time Frame: Jul 11, 2018 Additional Short Term Goals: 1-Demonstrate ADL Tasks, 2-Verbalize Understanding , 3-ImproveStrength/[place]imi 1=Demonstrate adherence to instructed precautions during ADL tasks. 2=Patient will verbalize/demonstrate understanding of assistive devices/ modifications for ADL. 3=Patient will improve strength/tolerance for activity to enable patient to perform ADL's. OT Home Help Aide Goals Home Help Aide Goals Time Frame: July 25, 2018 Eating (FIM): 6 Eating (QC): 6 Groomin Oral Hygiene (QC): 6 Bathing(FIM): 6 Bathing Location: L Arm, R Arm, L Upper Leg, R Upper Leg, L Lower Leg ( including foot), R Lower Leg (including foot), Chest, Abdomen, Buttocks, Perineal Area Shower/Bathe Self (QC): 6 Upper Body Dressing(FIM): 6 Upper Body Dressing (QC): 6 Lower Body Dressing(FIM): 6 Lower Body Dressing (QC): 6 On/Off Footwear (QC): 6 Toileting(FIM): 6 Toileting Hygiene (QC): 6 Transfers (B,C,W/C) (FIM): 6 Toilet/Commode Transfer(FIM): 6 Toilet/Commode Transfer (QC): 6 Tub Transfer(FIM): 4 Shower Transfer(FIM): 6 Additional Goals: 1-Demonstrate ADL Tasks, 2-Verbalize Understanding, 3- ImproveStrength/Yimi 1=Demonstrate adherence to instructed precautions during ADL tasks. 2=Patient will verbalize/demonstrate understanding of assistive devices/ modifications for ADL. 3=Patient will improve strength/tolerance for activity to enable patient to perform ADL's. OT Education/Plan Problem List/Assessment Assessment: Decreased Activ Tolerance, Decreased UE Strength, Impaired I ADL's , Impaired Self-Care Skills, Restricted Funct UE ROM continued progress towards all goals. pt continues to demo functional limitations affecting areas of ADLS/ functional transfers with deficits in: decrease activity tolerance/ endurance. pt would benefit from additional OT services to increase overall independence with ADLS/ functional transfers and for safety transition to home. Discharge Recommendations Plan/Recommendations: Continue POC Target Placement home Treatment Plan/Plan of Care Treatment,Training & Education: Yes Patient would benefit from OT for education, treatment and training to promote independence in ADL's, mobility, safety and/or upper extremity function for ADL' s. Plan of Care: ADL Retraining, Functional Mobility, Group Exercise/Act as Ind, UE Funct Exercise/Act, UE Neuromus Re-Ed/Coord Treatment Duration: July 25, 2018 Frequency: At least 5 of 7 days/Wk (IRF) Estimated Hrs Per Day: 1.5 hours per day Agreement: Yes Rehab Potential: Good Time/GCodes Start Time: 09:00 Stop Time: 10:00 Total Time Billed (hr/min): 60 Billed Treatment Time ADL 60 minutes, 4 units LILIYA GUTIÉRREZ OT Jul 07, 2018 10:17
--- NOTE | 2018-07-07 15:06 | Therapy Group Daily Note ---
Therapy Daily Group Note Patient Education Topic Other List Below (ARU expectations, U&L extremity strengthening exercises) Exercises LE Seated Exercise, UE Exercise Session Ratio (pt:therapist): 4:1 Goal of Session: Education on ARU Expectations, UE/LE Strengthing Goal Met for this Session: Yes Pt Benefit of Group: Contributions to Others, Increased Functional Strength, Recognition of Peers, Socialization Other/Notes Pt ambulated to OT/PT group in [facility] area. Group consisted of introductions (name, place living, first job), socialization, ARU expectations/ description, UE/LE seated exercises and memory game. Pt able to introduce self appropriately then actively listened to peers. Pt acknowledged understanding of ARU by participation and contribution. Pt able to complete UE/LE seated exercises without difficulty and was able to lead 2 exercises. Using light wt ball, pt completed B LE exercise. After therapy, pt lying in bed with call light/phone in reach. All needs met in room. 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
[2018-07-07 18:03] VITALS: BP 162/77
--- NOTE | 2018-07-07 19:08 | NUR ---
bedside report received from JEFFERSON DOSHI, assume care of pt
--- NOTE | 2018-07-07 20:20 | Consultation ---
History of Present Illness History of Present Illness Patient Consulted On(kendra/time) 07/07/18 20:15 Date Seen by Provider: Jul 07, 2018 Time Seen by Provider: 13:00 History of Present Illness Consult from Dr. Kate for poor venous access. Patient is a 73 year old female in [facility]. SHe has history of fall and debility. She has history of chronic anemia. She has been on infusions for anemia and she states requires frequent blood draws. She does has difficulty with IV access. Patient has had PICC lines in the past which did well for her. She would also like to discuss port placement. She has ulcers b/l lower extremities that DR. Salgado is taking care of . She states her legs are improving. She is using a walker. She has no other complaints to me at this time. Denies n/v fever sweats chills shortness of breath or chest pain. Allergies and Home Medications Allergies Coded Allergies: NSAIDS (Non-Steroidal Anti-Inflamma (Verified Allergy, Severe, BLOOD IN URINE, 06/23/18) celecoxib (Unverified Allergy, Severe, BLOOD IN URINE, 06/23/18) penicillin G (Verified Allergy, Unknown, HAS RECEIVED ANCEF W/O ISSUE, ) Home Medications Acetaminophen 500 Mg Tablet, 1,000 MG PO Q4H PRN for PAIN-MILD, (Reported) Albuterol Sulfate 18 Gm Hfa.aer.ad, 2 PUFF INH Q4H PRN for SHORTNESS OF BREATH, (Reported) Amiodarone HCl 200 Mg Tablet, 200 MG PO DAILY, (Reported) Apixaban 5 Mg Tablet, 5 MG PO BID, (Reported) Ascorbate Calcium 500 Mg Tablet, 500 MG PO DAILY, (Reported) Atorvastatin Calcium 40 Mg Tablet, 40 MG PO HS, (Reported) Calcium Carbonate 600 Mg Tablet, 600 MG PO DAILY, (Reported) Cholecalciferol (Vitamin D3) 2,000 Unit Capsule, 2,000 UNIT PO DAILY, (Reported) Cyanocobalamin 100 Mcg Tablet, 200 MCG PO DAILY, (Reported) Darbepoetin Felice in Polysorbat 40 Mcg/1 Ml Vial, 35 MCG IV EVERY 2 WEEKS, ( Reported) Ferric Carboxymaltose 750 Mg/15 Ml Vial, 250 ML IV UD, (Reported) RECEIVED 1 DOSE 06-18-18 AND DUE FOR ONE MORE DOSE 3-3-19 Fluticasone/Salmeterol 1 Each Blst.w.dev, 1 PUFF INH BID, (Reported) Folic Acid 1 Mg Tablet, 1 MG PO DAILY, (Reported) Furosemide 40 Mg Tablet, 60 MG PO DAILY, (Reported) TAKES 1 & 1/2 (40MG) TABLET Magnesium Citrate 125 Mg Capsule, 250 MG PO HS, (Reported) TAKES 2 (125MG) CAPSULES Metoprolol Succinate 50 Mg Tab.er.24h, 50 MG PO DAILY, (Reported) Montelukast Sodium 10 Mg Tablet, 10 MG PO HS, (Reported) Potassium Chloride 10 Meq Tablet.er, 10 MEQ PO DAILY, (Reported) Tramadol HCl 50 Mg Tablet, 50-100 MG PO Q6H PRN for PAIN-MODERATE, (Reported) Patient Home Medication List Home Medication List Reviewed: Yes Past Umygwat-Qdjrml-Acbevw Hx Patient Social History Alcohol Use: Denies Use Recreational Drug Use: No Smoking Status: Never a Smoker 2nd Hand Smoke Exposure: No Recent Foreign Travel: No Contact w/Someone Who Travel: No Recent Infectious Disease Expo: No Recent Hopitalizations: Yes (REHAB) Physical Abuse Screen: No Sexual Abuse: No Immunizations Up To Date Tetanus Booster (TDap): Unknown Date of Influenza Vaccine: Dec 24, 2017 Seasonal Allergies Seasonal Allergies: No Respiratory History of Respiratory Disorde: Yes Respiratory Disorders: Asthma, Sleep Apnea, COPD Cardiovascular History of Cardiac Disorders: Yes Cardiac Disorders: Atrial Fibrillation, High Cholesterol, Hypertension Neurological History of Neurological Disord: No Reproductive System Sexually Transmitted Disease: No HIV/AIDS: No Female Reproductive Disorders: Denies Genitourinary History of Genitourinary Disor: No Genitourinary Disorders: Bladder Infection Gastrointestinal History of Gastrointestinal Di: No Gastrointestinal Disorders: Hiatal Hernia Musculoskeletal History of Musculoskeletal Dis: Yes Musculoskeletal Disorders: Arthritis Endocrine History of Endocrine Disorders: Yes Endocrine Disorders: Diabetes, Non-Insulin dep HEENT History of HEENT Disorders: No Hearing Impairment: Denies Cancer History of Cancer: No Cancer: Melanoma Psychosocial History of Psychiatric Problem: No Integumentary History of Skin or Integumenta: Yes (ULCERS) Blood Transfusions History of Blood Disorders: No Adverse Reaction to a Blood Tr: No Family Medical History Significant Family History: No Pertinent Family Hx, Heart Disease Family Medial History: Dementia 19 MOTHER Diabetes mellitus G8 SISTER Myocardial infarction 19 FATHER Neoplasm G8 SISTER Review of Systems-General Constitutional: weakness Respiratory: no symptoms reported Cardiovascular: no symptoms reported Gastrointestinal: no symptoms reported Genitourinary: no symptoms reported Musculoskeletal: joint pain Skin: other (ulcers lower legs) Psychiatric/Neurological: No Symptoms Reported Physical Exam-General Problems Physical Exam Vital Signs Vital Signs - First Documented 07/01/18 07/01/18 07/02/18 05:07 15:01 00:49 Temp 98.9 Pulse 82 Resp 18 B/P (MAP) 152/71 (98) Pulse Ox 93 O2 Delivery Room Air O2 Flow Rate 2.00 FiO2 21 Capillary Refill : Less Than 3 Seconds General Appearance: no apparent distress HEENT: PERRL/EOMI, normal ENT inspection Neck: non-tender, full range of motion, supple, normal inspection Respiratory: chest non-tender, no respiratory distress, no accessory muscle use Cardiovascular: regular rate, rhythm Gastrointestinal: non tender, soft, no organomegaly, no pulsatile mass Rectal: deferred Back: no CVA tenderness Extremities: swelling (b/l with bandages from ulcers) Neurologic/Psychiatric: alert, normal mood/affect, oriented x 3 Skin: warm/dry (slight discoloration lower extremities) Lymphatic: no adenopathy Data Review Labs Laboratory Tests 07/07/18 05:41: Glucometer 141H 07/07/18 11:28: Glucometer 133H 07/07/18 16:56: Glucometer 157H Assessment/Plan Assessment/Plan Assessment/Plan poor venous access anemia debility leg ulcers patient with chronic anemia and hospitalizations. patient states she has requires lots of infusions and blood draws. We discussed risks and benefits of having port or picc line placed. She wishes for port to be placed. patient on Apixaban discussed with Dr. Kate, and héctoray to hold for port placement on . NPO Sat at midnight. Consent for port Clinical Quality Measures DVT/VTE Risk/Contraindication: Risk Factor Score Per Nursin RFS Level Per Nursing on Admit: 4+=Very High GURDEEP FORD DO Jul 07, 2018 20:20
[2018-07-07] MEDS: MONTELUKAST 10 MG (SINGULAIR) TAB PO SCH (20:59)
[2018-07-07] MEDS: ATORVASTATIN 40 MG (LIPITOR) TABLET PO SCH (20:59)
--- NOTE | 2018-07-07 21:00 | NUR ---
up to bathroom with 1 person standby assist & walker, back to bed, assessments & interventions completed, see assessments & interventions, fsbs 134, no ss insulin required, A&D ointment to wiliam lower legs, wiliam legs elevated on pillows & bed adjusted up also
--- NOTE | 2018-07-07 21:51 | NUR ---
requests Tylenol for generalized discomfort, pain level 6/10 on numeric scale, Tylenol 1000mg po given
--- NOTE | 2018-07-07 22:30 | NUR ---
resting quietly in bed, pain level 0/10 on flacc scale
[2018-07-08 05:05] VITALS: BP 127/65
[2018-07-08] MEDS: inSUlin ASPART (NovoLOG) 1 UNIT/0.01 ML (CHARGE PER UNIT) SC SCH ×4 (06:00→21:28)
[2018-07-08] MEDS: CATHETER FLUSH 10 ML SYR IV SCH ×3 (06:00→19:38)
[2018-07-08] MEDS: KCL 10 MEQ TAB (MICRO K) PO SCH (06:41)
[2018-07-08] MEDS: FOLIC ACID 1 MG TAB PO SCH (06:41)
--- NOTE | 2018-07-08 07:08 | NUR ---
bedside report given to BRAEDEN DOSHI
[2018-07-08] MEDS: ACETAMINOPHEN 500 MG TAB (TYLENOL) PO PRN ×3 (07:43→21:59)
[2018-07-08 08:07] VITALS: BP 122/65
[2018-07-08] MEDS: AMIODARONE 200 MG (CORDARONE) TAB PO SCH (08:08)
[2018-07-08] MEDS: FUROSEMIDE 20 MG (LASIX) TAB PO SCH (08:08)
[2018-07-08] MEDS: FUROSEMIDE 40 MG (LASIX) TAB PO SCH (08:08)
[2018-07-08] MEDS: meTOproloL SUCCINATE 50 MG (TOPROL XL) TAB PO SCH (08:08)
[2018-07-08] MEDS: MAGNESIUM OXIDE (MAG-OX)400 MG TAB PO SCH (08:13)
--- NOTE | 2018-07-08 08:44 | PM&R Progress Note ---
Subjective HPI/CC On Admission Date Seen by Provider: Jul 08, 2018 Time Seen by Provider: 08:45 CC: Debility requiring IRF HPI: This is a 73yoWF clinic patient of Dr Roblero who has multiple medical issues who was admitted to IRF last fall after a debility episode following an acute medical illness and subsequently went to the long-term for a several weeks and then went home the end of February once her home was modified and had been doing well until she was admitted to 4th floor with sepsis and acute exacerbation of asthma and the source was the lower extremity ulcers that caused beta Strep septicemia so the ulcers have been managed by Dr Salgado and patient was placed on Vancomycin and will complete that Saturday. Her PLOF was independent at home and currently she is 1-2 person assist. Barriers to returning home alone will be ambulating and ability to perform ADL's which due to habitus will require a estimated 14 days stay. Her asthma responds to her ICS inhaler along with Neb treatments and the catheter will be removed since IVF have been MN'ed and incontinence care will be provided. Subjective/Events-last exam Port placement on . Eliquis will be held until then. Discharge will be delayed until Saturday. Lower extremity edema much improved. Wound care on Saturday and Saturday after shower. Denies any significant new complaints. No asthma issues. Hospital bed will be needed at time of discharge. Checked meds and labs and therapy notes. Review of Systems General: Fatigue Objective Exam Vital Signs Vital Signs Date Time Temp Pulse Resp B/P (MAP) Pulse Ox O2 Delivery O2 Flow Rate FiO2 07/08/18 19:07 94 Room Air 07/08/18 18:00 98.0 69 20 135/76 (95) 07/02/18 08:12 2.00 Capillary Refill : Less Than 3 Seconds General Appearance: No Apparent Distress, WD/WN, Chronically ill, Obese HEENT: PERRL/EOMI, Normal ENT Inspection, Pharynx Normal, Moist Mucous Membranes Neck: Full Range of Motion, Normal Inspection, Non Tender, Supple Respiratory: Chest Non Tender, Lungs Clear, Normal Breath Sounds, No Accessory Muscle Use, No Respiratory Distress Cardiovascular: No Gallop, No JVD, No Murmur, Irregularly Irregular Gastrointestinal: Normal Bowel Sounds, No Organomegaly, No Pulsatile Mass, Non Tender, Soft Back: Normal Inspection, No CVA Tenderness, No Vertebral Tenderness Extremity: Normal Capillary Refill, Normal Inspection, Normal Range of Motion, Non Tender, No Calf Tenderness, Pedal Edema Neurologic/Psychiatric: Alert, Oriented x3, No Motor/Sensory Deficits, Normal Mood/Affect, 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 FIM Transfers Therapy Code Descriptions/Definitions Functional [place] Measure: 0=Not Assessed/NA 4=Minimal Assistance 1=Total Assistance 5=Supervision or Setup 2=Maximal Assistance 6=Modified [place] 3=Moderate Assistance 7=Complete [place] Therapy Quality Codes: 6 Independent with activity with or without an assistive device 5 Patient requires set up or clean up by helper. Patient completes activity by themselves 4 Supervision or touching assist (CGA). [place] provide cues , steadying assist 3 The helper provides less than half the effort to complete the activity 2 The helper provides more than half the effort to complete the activity 1 Dependent. The helper does all the effort to complete an activity 7 Patient refused to complete or attempt activity 9 The patient did not perform the activity before the current illness or injury 88 Not attempted due to Medical conditions or safety concerns Gait Training Does the Patient Walk?: Yes Distance (FIM): 7=150-72 ft Gait Assistive Device: FWW Wheelchair Training Does the Pt Use a Wheelchair?: No Mental Status/Objective Comprehension: 7 Expression: 7 Social Interaction: 7 Problem Solvin Memory: 7 ADL-Treatment Feedin Eating (QC): 6 Groomin (standing at sink) Oral Hygiene (QC): 6 Bathin (use of AE. pt education on proper use of AE while perfoming bathing. pt demo understnaidng with no safety concerns) Bathing Location: L Arm, R Arm, L Upper Leg, R Upper Leg, L Lower Leg ( including foot), R Lower Leg (including foot), Chest, Abdomen, Buttocks, Perineal Area Shower/Bathe Self (QC): 4 Upper Extremity Dressin (supervision for safety/ balance while gathering clothing from closet. pt education on placement of clothing on RW. pt verbalized and demo understanding correctly. ) Upper Body Dressing (QC): 4 Lower Extremity Dressin (supervision for safety/ balance while gathering clothing from closet. pt education on placement of clothing on RW. pt verbalized and demo understanding correctly. 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 Poor venous access will place [place] port per Dr Marcos Plan: IRF protocol Home meds Nebs to continue which keep lungs clear Weaned O2 successfully and does not need that at DC Ambulate with assistance Safety education to prevent falls Patient will return home at [place] later this week with hospital bed s/p IV Vanc treatment Venous and arterial USG as outpatient Port placement (1) Debility (2) Osteoporosis (3) Arthritis (4) Lymphedema (5) Wheezing (6) Obesity (7) Asthma (8) ADITI on CPAP (9) Anemia (10) Diabetes (11) Hypertension (12) Hypotension Resolution Date/Time: 06/25/18 @ 20:17 (13) Ulcers of both lower extremities (14) Beta-hemolytic group A streptococcal sepsis NELIA MCKEON DO Jul 08, 2018 08:44
--- NOTE | 2018-07-08 09:31 | Occupational Ther Daily Note ---
OT Current Status-Daily Note Subjective pt sitting in recliner chair upon OT arrival in no apparent distress. pt agreed to skilled OT session with focus on increasing overall activity tolerance, dynamic standing balance, and HEP in prep for daily activities. pt complains of 5/10pain in Ziggy LE. NSG notified. pt stated she would like to practice using rollater. physical therapy to address initial use of rollater with patient. Appearance post OT Session pt in recliner chair, call light, water and tray within reach. all needs met. Mental Status/Objective Therapy Code Descriptions/Definitions Functional [place] Measure: 0=Not Assessed/NA 4=Minimal Assistance 1=Total Assistance 5=Supervision or Setup 2=Maximal Assistance 6=Modified [place] 3=Moderate Assistance 7=Complete [place] ADL-Treatment Therapy Code Descriptions/Definitions Functional [place] Measure: 0=Not Assessed/NA 4=Minimal Assistance 1=Total Assistance 5=Supervision or Setup 2=Maximal Assistance 6=Modified [place] 3=Moderate Assistance 7=Complete [place] Therapy Quality Codes: 6 Independent with activity with or without an assistive device 5 Patient requires set up or clean up by helper. Patient completes activity by themselves 4 Supervision or touching assist (CGA). [place] provide cues , steadying assist 3 The helper provides less than half the effort to complete the activity 2 The helper provides more than half the effort to complete the activity 1 Dependent. The helper does all the effort to complete an activity 7 Patient refused to complete or attempt activity 9 The patient did not perform the activity before the current illness or injury 88 Not attempted due to Medical conditions or safety concerns Transfers (B, C, W/C) (FIM): 6 (use of RW) Other Treatment pt demo ability to perform functional mobility throughout kitchen area. pt education on proper placement of RW when utilizing items in kitchen such as oven , refrigerator and opening kitchen cabinets. pt verbalized and demo understanding with no safety concerns and proper use of RW. pt education on use of body builder for when items are drop on floor/ how to store items in kitchen for energy conservation. pt verbalized understanding and stated examples. pt then perform functional mobility approx. 55 ft using RW MOD I to [place] gym. once in gym pt performed UBE 5 mins F/B X2. with 30 second rest break to increase activity tolerance for ADLS. pt then demo ability to perform dynamic coordination task by standing with RW and tossing ball into bin using one hand on RW with SPV for safety/ balance while taking one step forward with each toss. pt demo ability to throw 5X4 balls with no LOB noted. pt then demo ability to perform HEP independence with no cueing using RED theraband to increase UE strength for daily activities pt demo ability to performed 12X1 shoulder flex/ ext/ ADD/ ABD , 12X1 elbow flex/ ext. pt stated she has no concerns. Education OT Patient Education: Energy conservation, Exercise program, Home exercise program, Progress toward Goal/Update tx plan, Purpose of tx/functional activities, Use of adapted equipment Teaching Recipient: Patient Teaching Methods: Demonstration, Discussion Response to Teaching: Verbalize Understanding, Return Demonstration OT Short Term Goals Short Term Goals Time Frame: Jul 11, 2018 Additional Short Term Goals: 1-Demonstrate ADL Tasks, 2-Verbalize Understanding , 3-ImproveStrength/Yimi 1=Demonstrate adherence to instructed precautions during ADL tasks. 2=Patient will verbalize/demonstrate understanding of assistive devices/ modifications for ADL. 3=Patient will improve strength/tolerance for activity to enable patient to perform ADL's. OT Block Saw Operator Goals [facility] Goals Time Frame: July 25, 2018 Eating (FIM): 6 Eating (QC): 6 Groomin Oral Hygiene (QC): 6 Bathing(FIM): 6 Bathing Location: L Arm, R Arm, L Upper Leg, R Upper Leg, L Lower Leg ( including foot), R Lower Leg (including foot), Chest, Abdomen, Buttocks, Perineal Area Shower/Bathe Self (QC): 6 Upper Body Dressing(FIM): 6 Upper Body Dressing (QC): 6 Lower Body Dressing(FIM): 6 Lower Body Dressing (QC): 6 On/Off Footwear (QC): 6 Toileting(FIM): 6 Toileting Hygiene (QC): 6 Transfers (B,C,W/C) (FIM): 6 Toilet/Commode Transfer(FIM): 6 Toilet/Commode Transfer (QC): 6 Tub Transfer(FIM): 4 Shower Transfer(FIM): 6 Additional Goals: 1-Demonstrate ADL Tasks, 2-Verbalize Understanding, 3- ImproveStrength/Yimi 1=Demonstrate adherence to instructed precautions during ADL tasks. 2=Patient will verbalize/demonstrate understanding of assistive devices/ modifications for ADL. 3=Patient will improve strength/tolerance for activity to enable patient to perform ADL's. OT Education/Plan Problem List/Assessment pt continues to make progress towards all goals. pt completing functional transfers MOD I this date using FRW. pt continues to demo functional limitations affecting areas of ADLS/ functional transfers with deficits in: decrease activity tolerance/ endurance. pt would benefit from additional OT services to increase overall independence with ADLS/ functional transfers and for safety transition to home. Discharge Recommendations Plan/Recommendations: Continue POC Treatment Plan/Plan of Care Treatment,Training & Education: Yes Patient would benefit from OT for education, treatment and training to promote independence in ADL's, mobility, safety and/or upper extremity function for ADL' s. Plan of Care: ADL Retraining, Functional Mobility, Group Exercise/Act as Ind, UE Funct Exercise/Act, UE Neuromus Re-Ed/Coord Treatment Duration: July 25, 2018 Frequency: At least 5 of 7 days/Wk (IRF) Estimated Hrs Per Day: 1.5 hours per day Agreement: Yes Rehab Potential: Good Time/GCodes Start Time: 08:00 Stop Time: 09:30 Total Time Billed (hr/min): 90 Billed Treatment Time EX, 1 unit 20 minutes FA, 5 units, 70 minutes LILIYA GUTIÉRREZ OT Jul 08, 2018 09:31
--- NOTE | 2018-07-08 10:58 | Physical Therapy Daily Note ---
PT Daily Note-Current Subjective Pt. was in bathroom upon arrival. Pt. agreed for therapy treatment. Pt. had no complaints of pain. Transfers Therapy Code Descriptions/Definitions Functional [place] Measure: 0=Not Assessed/NA 4=Minimal Assistance 1=Total Assistance 5=Supervision or Setup 2=Maximal Assistance 6=Modified [place] 3=Moderate Assistance 7=Complete [place] Therapy Quality Codes: 6 Independent with activity with or without an assistive device 5 Patient requires set up or clean up by helper. Patient completes activity by themselves 4 Supervision or touching assist (CGA). [place] provide cues , steadying assist 3 The helper provides less than half the effort to complete the activity 2 The helper provides more than half the effort to complete the activity 1 Dependent. The helper does all the effort to complete an activity 7 Patient refused to complete or attempt activity 9 The patient did not perform the activity before the current illness or injury 88 Not attempted due to Medical conditions or safety concerns Transfers (B, C, W/C) (FIM): 6 Scootin Supine to/from Sit: 6 Sit to/from Stand: 6 Sit to Lying (QC): 6 Sit to Stand (QC): 6 Pt. uses arm rest on chair when transferring from supine to sit for stabilization. Weight Bearing Right Lower Extremity: Right Full Weight Bearing Left Lower Extremity: Left Full Weight Bearing Gait Training Does the Patient Walk?: Yes Distance (FIM): 3=150 ft Distance: 150' x 2 Gait Level of Assist: 6 Gait Persons Needed: 1 Gait Assistive Device: Walker 4 Wheeled Pt. will use 4WW at home. Therapist educated pt. on safety issues and precautions using the AD. Therapist incorporated 4WW in therapy session. Wheelchair Training Does the Pt Use a Wheelchair?: No Exercises Supine Ex: Ankle pumps, Quad Set, Glut sets, Heel Slides, Scooting, Straight leg raise, Hip abd/add Supine Reps: 10 Seated Therapy Exercises: Sit to stand Treatments Pt. walked from bathroom to therapy room. Pt. transferred to mat and completed supine exercises. Pt. then transferred to chair and completed seated exercises. Pt. ambulated back to her room. Pt. left in chair with her call light and all needs met. Assessment Current Status: Good Progress Pt. tolerated treatment well. Pt. will continue to benefit from therapy services. PT Longterm Goals Longterm Goals PT Tube Puller Goals Time Frame: Jul 19, 2018 Transfers (B,C,W/C) (FIM): 6 Sit to Lying (QC): 6 Lying-Sitting on Side/Bed(QC): 6 Sit to Stand (QC): 6 Rollin Roll Left to Right (QC): 6 Chair/Oit-no-Wkdlr Xfer(QC): 6 Car Transfer (QC): 6 Does the Patient Walk: Yes Gait (FIM): 2 Gait distance (FIM): 5=359-61 ft Distance: 100' Walk 10 feet (QC): 6 Walk 10ft-Uneven Surface(QC): 6 Walk 50ft with 2 Turns (QC): 6 Walk 150 ft (QC): 9 Gait Level of Assist: 6 Gait Assistive Device: FWW # of Steps: 1 1 Step (curb) (QC): 5 4 Steps (QC): 9 12 Steps (QC): 9 Stairs Level Of Assist: 5 Picking up an Object (QC): 5 PT Plan Treatment/Plan Treatment Plan: Continue Plan of Care Treatment Plan: Bed Mobility, Education, Functional Activity Yimi, Functional Strength, Group Therapy, Gait, Safety, Therapeutic Exercise, Transfers Treatment Duration: Jul 19, 2018 Frequency: At least 5 of 7 days/Wk (IRF) Estimated Hrs Per Day: 1.5 hours per day Patient and/or Family Agrees t: Yes Safety Risks/Education Patient Education: Gait Training, Transfer Techniques, Correct Positioning, Disease Process, Safety Issues Teaching Recipient: Patient Teaching Methods: Discussion Response to Teaching: Verbalize Understanding Time/GCodes Time In: 1000 Time Out: 1100 Total Billed Treatment Time: 60 Total Billed Treatment 1, GT, EX x 2, FA G Codes Necessary: RENNY Small AGRICULTURE INSTRUCTOR Jul 08, 2018 10:58
[2018-07-08] MEDS: A & D OINT 113 GM TUBE TOP SCH ×2 (11:11→21:28)
--- NOTE | 2018-07-08 14:50 | Physical Therapy Daily Note ---
PT Daily Note-Current Subjective Pt sitting in recliner finishing lunch upon arrival. Pt agrees to PT. Mental Status Patient Orientation: Person, Place, Time, Situation Transfers Therapy Code Descriptions/Definitions Functional [place] Measure: 0=Not Assessed/NA 4=Minimal Assistance 1=Total Assistance 5=Supervision or Setup 2=Maximal Assistance 6=Modified [place] 3=Moderate Assistance 7=Complete [place] Therapy Quality Codes: 6 Independent with activity with or without an assistive device 5 Patient requires set up or clean up by helper. Patient completes activity by themselves 4 Supervision or touching assist (CGA). [place] provide cues , steadying assist 3 The helper provides less than half the effort to complete the activity 2 The helper provides more than half the effort to complete the activity 1 Dependent. The helper does all the effort to complete an activity 7 Patient refused to complete or attempt activity 9 The patient did not perform the activity before the current illness or injury 88 Not attempted due to Medical conditions or safety concerns Scootin Sit to/from Stand: 5 Sit to Stand (QC): 5 Weight Bearing Right Lower Extremity: Right Full Weight Bearing Left Lower Extremity: Left Full Weight Bearing Gait Training Does the Patient Walk?: Yes Distance (FIM): 3=150 ft Distance: 150' x2 Walk 10 feet (QC): 5 Walk 50 ft with 2 Turns(QC): 5 Walk 150 ft (QC): 5 Gait Level of Assist: 5 Gait Persons Needed: 1 Gait Assistive Device: Walker 4 Wheeled Exercises NuStep Minutes: 15 NuStep Workload: 4 Treatments Pt transfers from sitting to standing before ambulating in hallway. Pt focused on proper use of AD. Pt uses NuStep for 15m at WL 4. Pt returns to room at end of tx to rest in recliner and finish lunch. Pt has all needs met at end of tx. Assessment Current Status: Good Progress Pt is fatigued by end of tx. PT Assisted Goals Assisted Goals PT Sexual Assault Counselor Goals Time Frame: Jul 19, 2018 Transfers (B,C,W/C) (FIM): 6 Sit to Lying (QC): 6 Lying-Sitting on Side/Bed(QC): 6 Sit to Stand (QC): 6 Rollin Roll Left to Right (QC): 6 Chair/Sss-ul-Cyuyc Xfer(QC): 6 Car Transfer (QC): 6 Does the Patient Walk: Yes Gait (FIM): 2 Gait distance (FIM): 2=431-36 ft Distance: 100' Walk 10 feet (QC): 6 Walk 10ft-Uneven Surface(QC): 6 Walk 50ft with 2 Turns (QC): 6 Walk 150 ft (QC): 9 Gait Level of Assist: 6 Gait Assistive Device: FWW # of Steps: 1 1 Step (curb) (QC): 5 4 Steps (QC): 9 12 Steps (QC): 9 Stairs Level Of Assist: 5 Picking up an Object (QC): 5 PT Plan Problem List Problem List: Activity Tolerance, Functional Strength Treatment/Plan Treatment Plan: Continue Plan of Care Treatment Plan: Bed Mobility, Education, Functional Activity Yimi, Functional Strength, Group Therapy, Gait, Safety, Therapeutic Exercise, Transfers Treatment Duration: Jul 19, 2018 Frequency: At least 5 of 7 days/Wk (IRF) Estimated Hrs Per Day: 1.5 hours per day Patient and/or Family Agrees t: Yes Safety Risks/Education Patient Education: Gait Training, Transfer Techniques, Correct Positioning, Safety Issues Teaching Recipient: Patient Teaching Methods: Discussion Response to Teaching: Verbalize Understanding Time/GCodes Time In: 1400 Time Out: 1430 Total Billed Treatment Time: 30 Total Billed Treatment 1, GT (15m) & EX (15m) G Codes Necessary: RENNY Small PTA Jul 08, 2018 14:50
--- NOTE | 2018-07-08 14:50 | NUR ---
PT EATING WELL, 98% MEALS. WEIGHT DOWN LIKELY IN PART DUE TO DECREASE IN EDEMA. INTAKE MEETING NEEDS AT THIS TIME. CONT SAME.
--- NOTE | 2018-07-08 15:37 | NUR ---
Patient originally scheduled for discharge on 07/10; however, due to port placement on the morning of 07/10, Dr. Kate recommends discharge be postponed until 07/11 to ensure anesthesia causes no concerns. Patient is agreeable to this. With this information, LEAD PRESSER contacted [facility] to inform of new discharge date and contacted DME to inquire about hospital bed delivery. DME can deliver bed tomorrow, late morning. Patient's son will be available upon hospital bed delivery.
[2018-07-08] MEDS: IRON SUCROSE 200 MG/10 ML (VENOFER) VIAL IV SCH (17:10)
--- NOTE | 2018-07-08 17:10 | NUR ---
Care assumed from Lazaro Walker RN. Agree with previous assessments.
--- NOTE | 2018-07-08 17:17 | Wound Care Assessment ---
Wound Care Assessment Date Seen by Provider: Jul 08, 2018 Time Seen by Provider: 17:14 Chief Complaint R calf ulcers. HPI 73-year-old female with R calf venous insufficiency ulcers admitted for related cellulitis. The cellulitis is resolved. The wounds are improved by report. Continue honey alginate dressings. 07/08/18 --- patient interviewed. Wounds are stable by pictures on patient's phone. No change to plan. Will arrange follow-up as out-patient. Past Medical History: Admits Diabetes Type II, Admits Heart Disease, Admits Peripheral Artery Disease Smoking Status: Never a Smoker Recreational Drug Use: No Alcohol Use: Denies Use Exam Vital Signs Date Time Temp Pulse Resp B/P (MAP) Pulse Ox O2 Delivery O2 Flow Rate FiO2 07/08/18 09:00 Room Air 07/08/18 08:07 73 20 122/65 (84) 97 07/08/18 05:05 98.3 07/02/18 08:12 2.00 Capillary Refill : Less Than 3 Seconds General Appearance: no apparent distress Results Laboratory Tests 07/07/18 20:58: Glucometer 134H 07/08/18 04:53: Glucometer 115H 07/08/18 10:51: Glucometer 101 Assessment/Plan/Dx 1. R calf ulcers x 3, full thickness without exposed support structures. No interval change. 2. Venous insufficiency, BLE. 3. Diabetes with ulcer and neuropathy. 4. Peripheral arterial disease, with R calf ulcer. 5. Morbid obesity. Plan: Continue elevation and [place] honey alginate dressings. OLIVER COBOS MD Jul 08, 2018 17:17
[2018-07-08 17:21] VITALS: BP 122/65
[2018-07-08 18:00] VITALS: BP 135/76
[2018-07-08] MEDS: RT-ALBUTEROL SULF 2.5 MG/3 ML PRE-MIX VIAL INH SCH (19:04)
[2018-07-08] MEDS: RT-ADVAIR HFA 115/21 MCG PER PUFF IH SCH (19:04)
--- NOTE | 2018-07-08 20:39 | Progress Note ---
Subjective Date Seen by a Provider: Jul 08, 2018 Time Seen by a Provider: 17:21 Subjective/Events-last exam Patient no new complaints. Laying in bed. Planning on port placement . Denies n/v fever sweats chills shortness of breath or chest pain. Objective Exam Vital Signs Date Time Temp Pulse Resp B/P (MAP) Pulse Ox O2 Delivery O2 Flow Rate FiO2 07/08/18 19:07 94 Room Air 07/08/18 18:00 98.0 69 20 135/76 (95) 97 07/08/18 17:21 73 97 07/08/18 09:00 Room Air 07/08/18 08:07 73 20 122/65 (84) 97 07/08/18 05:05 98.3 71 18 127/65 (85) 95 NIV CPAP 07/07/18 23:22 95 Room Air 07/07/18 23:19 94 Room Air 07/07/18 21:00 Room Air I & O 07/08/18 07:00 Intake Total 1650 ml Balance 1650 ml Capillary Refill : Less Than 3 Seconds General Appearance: No Apparent Distress, WD/WN, Chronically ill, Obese HEENT: PERRL/EOMI, Normal ENT Inspection, Pharynx Normal, Moist Mucous Membranes Neck: Full Range of Motion, Normal Inspection, Non Tender, Supple Respiratory: Chest Non Tender, No Accessory Muscle Use, No Respiratory Distress Cardiovascular: Irregularly Irregular Gastrointestinal: non tender, soft, no organomegaly, no pulsatile mass Extremity: Pedal Edema (lower extremity bandaged right side) Neurologic/Psychiatric: Alert, Oriented x3, Normal Mood/Affect, Abnormal Gait Skin: Normal Color, Warm/Dry, Other (right lower leg dressing intact over ulceration) Lymphatic: No Adenopathy Results Lab Laboratory Tests 07/07/18 20:58: Glucometer 134H 07/08/18 04:53: Glucometer 115H 07/08/18 10:51: Glucometer 101 07/08/18 17:36: Glucometer 97 Assessment/Plan Assessment/Plan Assessment/Plan poor venous access anemia debility leg ulcers patient with chronic anemia and hospitalizations. patient states she has requires lots of infusions and blood draws. We discussed risks and benefits of having port, she wishes for port to be placed. patient Apixaban on hold NPO Sat at midnight for port to be place Consent for port Clinical Quality Measures DVT/VTE Risk/Contraindication: Risk Factor Score Per Nursin RFS Level Per Nursing on Admit: 4+=Very High GURDEEP FORD DO Jul 08, 2018 20:39
[2018-07-08] MEDS: ATORVASTATIN 40 MG (LIPITOR) TABLET PO SCH (21:27)
[2018-07-08] MEDS: MONTELUKAST 10 MG (SINGULAIR) TAB PO SCH (21:27)
[2018-07-09 06:37] VITALS: BP 129/70
[2018-07-09] MEDS: KCL 10 MEQ TAB (MICRO K) PO SCH (06:37)
[2018-07-09] MEDS: FOLIC ACID 1 MG TAB PO SCH (06:37)
[2018-07-09] MEDS: inSUlin ASPART (NovoLOG) 1 UNIT/0.01 ML (CHARGE PER UNIT) SC SCH ×4 (06:37→21:32)
[2018-07-09] MEDS: RT-ALBUTEROL SULF 2.5 MG/3 ML PRE-MIX VIAL INH SCH ×2 (07:15→20:14)
[2018-07-09] MEDS: RT-ADVAIR HFA 115/21 MCG PER PUFF IH SCH ×2 (07:15→20:15)
[2018-07-09] MEDS: MAGNESIUM OXIDE (MAG-OX)400 MG TAB PO SCH (08:25)
[2018-07-09] MEDS: FUROSEMIDE 40 MG (LASIX) TAB PO SCH (08:25)
[2018-07-09] MEDS: AMIODARONE 200 MG (CORDARONE) TAB PO SCH (08:25)
[2018-07-09] MEDS: ACETAMINOPHEN 500 MG TAB (TYLENOL) PO PRN ×3 (08:25→21:44)
[2018-07-09] MEDS: FUROSEMIDE 20 MG (LASIX) TAB PO SCH (08:25)
[2018-07-09] MEDS: meTOproloL SUCCINATE 50 MG (TOPROL XL) TAB PO SCH (08:25)
[2018-07-09] MEDS: A & D OINT 113 GM TUBE TOP SCH ×2 (08:27→20:31)
--- NOTE | 2018-07-09 08:53 | PM&R Progress Note ---
Subjective HPI/CC On Admission Date Seen by Provider: Jul 09, 2018 Time Seen by Provider: 08:30 CC: Debility requiring IRF HPI: This is a 73yoWF clinic patient of Dr Roblero who has multiple medical issues who was admitted to IRF last fall after a debility episode following an acute medical illness and subsequently went to the halfway for a several weeks and then went home the end of February once her home was modified and had been doing well until she was admitted to 4th floor with sepsis and acute exacerbation of asthma and the source was the lower extremity ulcers that caused beta Strep septicemia so the ulcers have been managed by Dr Salgado and patient was placed on Vancomycin and will complete that Saturday. Her PLOF was independent at home and currently she is 1-2 person assist. Barriers to returning home alone will be ambulating and ability to perform ADL's which due to habitus will require a estimated 14 days stay. Her asthma responds to her ICS inhaler along with Neb treatments and the catheter will be removed since IVF have been OR'ed and incontinence care will be provided. Subjective/Events-last exam Legs are a bit red but venous stasis dermatitis remains. Has lost. total of 42 pounds since admission to hospital initially med surgery. Port placement tomorrow due to poor venous access chronically. Does get incontinence at time and uses depends. Discharge on Saturday planned. Holding Eliquis in meantime Review of Systems General: Fatigue Pulmonary: Dyspnea Objective Exam Vital Signs Vital Signs Date Time Temp Pulse Resp B/P (MAP) Pulse Ox O2 Delivery O2 Flow Rate FiO2 07/09/18 20:24 Room Air 07/09/18 20:15 94 07/09/18 18:00 98.4 77 18 145/78 (100) Capillary Refill : Less Than 3 Seconds General Appearance: No Apparent Distress, WD/WN, Chronically ill, Obese HEENT: PERRL/EOMI, Normal ENT Inspection, Pharynx Normal, Moist Mucous Membranes Neck: Full Range of Motion, Normal Inspection, Non Tender, Supple Respiratory: Chest Non Tender, No Accessory Muscle Use, No Respiratory Distress Cardiovascular: Irregularly Irregular Gastrointestinal: Normal Bowel Sounds, No Organomegaly, No Pulsatile Mass, Non Tender, Soft Back: Normal Inspection, No CVA Tenderness, No Vertebral Tenderness Extremity: Pedal Edema (lower extremity bandaged right side) Neurologic/Psychiatric: Alert, Oriented x3, Normal Mood/Affect, Abnormal Gait Skin: Normal Color, Warm/Dry, Other (right lower leg dressing intact over ulceration) Lymphatic: No Adenopathy Results/Procedures Lab Patient resulted labs reviewed. FIM Transfers Therapy Code Descriptions/Definitions Functional [place] Measure: 0=Not Assessed/NA 4=Minimal Assistance 1=Total Assistance 5=Supervision or Setup 2=Maximal Assistance 6=Modified [place] 3=Moderate Assistance 7=Complete [place] Therapy Quality Codes: 6 Independent with activity with or without an assistive device 5 Patient requires set up or clean up by helper. Patient completes activity by themselves 4 Supervision or touching assist (CGA). [place] provide cues , steadying assist 3 The helper provides less than half the effort to complete the activity 2 The helper provides more than half the effort to complete the activity 1 Dependent. The helper does all the effort to complete an activity 7 Patient refused to complete or attempt activity 9 The patient did not perform the activity before the current illness or injury 88 Not attempted due to Medical conditions or safety concerns Gait Training Does the Patient Walk?: Yes Distance (FIM): 6=191-53 ft Mental Status/Objective Comprehension: 7 Expression: 7 Social Interaction: 7 Problem Solvin Memory: 7 ADL-Treatment Feedin Eating (QC): 6 Groomin (standing at sink) Oral Hygiene (QC): 6 Bathin (use of AE. pt education on proper use of AE while perfoming bathing. pt demo understnaidng with no safety concerns) Bathing Location: L Arm, R Arm, L Upper Leg, R Upper Leg, L Lower Leg ( including foot), R Lower Leg (including foot), Chest, Abdomen, Buttocks, Perineal Area Shower/Bathe Self (QC): 4 Upper Extremity Dressin (supervision for safety/ balance while gathering clothing from closet. pt education on placement of clothing on RW. pt verbalized and demo understanding correctly. ) Upper Body Dressing (QC): 4 Lower Extremity Dressin (supervision for safety/ balance while gathering clothing from closet. pt education on placement of clothing on RW. pt verbalized and demo understanding correctly. pt demo ability to use AE to perform LB dressing, (wiliam socks, underpants)) Lower Body Dressing (QC): 4 On/Off Footwear (QC): 5 (use of AE) Toiletin Toileting Hygiene (QC): 5 Toilet/Commode Transfer: 5 (use of RW and GB) Toilet Transfer (QC): 4 Tub: 0 Shower: 5 Assessment/Plan Assessment and Plan Assess & Plan/Chief Complaint (1) Beta-hemolytic group A streptococcal sepsis- completed abx of Vanc Status: Acute (2) Ulcers of both lower extremities-Dr Salgado is appreciated Status: Acute (3) Anemia- consulting her Toe Stripper Dr Troncoso Status: Chronic (4) ADITI on CPAP Status: Chronic (5) Hypertension Status: Chronic (6) Diabetes Status: Chronic (7) Wheezing- improved Status: Acute (8) Asthma Status: Chronic (9) Hypotension Status: Resolved (10) Arthritis Status: Chronic (11) Osteoporosis Status: Chronic (12) Obesity Status: Chronic (13) Debility Status: Acute (14) Lymphedema Status: Chronic 15. Poor venous access will place [place] port per Dr Marcos Plan: IRF protocol Home meds Nebs to continue which keep lungs clear Weaned O2 successfully and does not need that at DC Ambulate with assistance Safety education to prevent falls Patient will return home at OR later this week with hospital bed s/p IV Vanc treatment Venous and arterial USG as outpatient Port placement tomorrow (1) Debility (2) Osteoporosis (3) Arthritis (4) Lymphedema (5) Wheezing (6) Obesity (7) Asthma (8) ADITI on CPAP (9) Anemia (10) Diabetes (11) Hypertension (12) Hypotension Resolution Date/Time: 06/25/18 @ 20:17 (13) Ulcers of both lower extremities (14) Beta-hemolytic group A streptococcal sepsis NELIA MCKEON DO Jul 09, 2018 08:53
--- NOTE | 2018-07-09 09:23 | Occupational Ther Daily Note ---
OT Current Status-Daily Note Subjective pt sitting in recliner chiar upon OT arrival. pt complains of 5/10 Ziggy LE pain. NSG notified. pt agreed to OT TX session with focus on increasing independence with ADLs/ functional transfers Appearance post OT session pt sitting in recliner chair, tray, call light, and water within reach. All needs met. Mental Status/Objective Therapy Code Descriptions/Definitions Functional [place] Measure: 0=Not Assessed/NA 4=Minimal Assistance 1=Total Assistance 5=Supervision or Setup 2=Maximal Assistance 6=Modified [place] 3=Moderate Assistance 7=Complete [place] Comprehension(FIM): 6 (glasses) Expression(FIM): 7 Social Interaction(FIM): 7 Problem Solving(FIM): 7 Memory(FIM): 7 ADL-Treatment Therapy Code Descriptions/Definitions Functional [place] Measure: 0=Not Assessed/NA 4=Minimal Assistance 1=Total Assistance 5=Supervision or Setup 2=Maximal Assistance 6=Modified [place] 3=Moderate Assistance 7=Complete [place] Therapy Quality Codes: 6 Independent with activity with or without an assistive device 5 Patient requires set up or clean up by helper. Patient completes activity by themselves 4 Supervision or touching assist (CGA). [place] provide cues , steadying assist 3 The helper provides less than half the effort to complete the activity 2 The helper provides more than half the effort to complete the activity 1 Dependent. The helper does all the effort to complete an activity 7 Patient refused to complete or attempt activity 9 The patient did not perform the activity before the current illness or injury 88 Not attempted due to Medical conditions or safety concerns Eating (FIM): 7 Eating (QC): 6 Grooming (FIM): 7 (standing at sink. no safety concerns. ) Oral Hygiene (QC): 6 Bathing (FIM): 6 (use of AE to increase independence) Bathing Location: L Arm, R Arm, L Upper Leg, R Upper Leg, L Lower Leg ( including foot), R Lower Leg (including foot), Chest, Abdomen, Buttocks, Perineal Area Shower/Bathe Self (QC): 6 Upper Body (FIM): 7 (pt gather clothing from closet independently ) Upper Body Dressing (QC): 6 Lower Body Dressing (FIM): 6 (use of AE. ) Lower Body Dressing (QC): 6 On/Off Footwear (QC): 6 (use of AE) Toileting (FIM): 6 (3/3 toileting tasks independently with use of AE (toilet aide)) Toileting Hygiene (QC): 6 Transfers (B, C, W/C) (FIM): 6 (use of rollater) Toilet/Commode Transfer (FIM): 6 (rollater) Toilet Transfer (QC): 6 Education OT Patient Education: Progress toward Goal/Update tx plan, Purpose of tx/ functional activities Teaching Recipient: Patient Teaching Methods: Discussion Response to Teaching: Verbalize Understanding OT Short Term Goals Short Term Goals Time Frame: Jul 11, 2018 Additional Short Term Goals: 1-Demonstrate ADL Tasks, 2-Verbalize Understanding , 3-ImproveStrength/Yimi 1=Demonstrate adherence to instructed precautions during ADL tasks. 2=Patient will verbalize/demonstrate understanding of assistive devices/ modifications for ADL. 3=Patient will improve strength/tolerance for activity to enable patient to perform ADL's. OT Front Services Agent Goals [place] Goals Time Frame: July 25, 2018 Eating (FIM): 6 Eating (QC): 6 Groomin Oral Hygiene (QC): 6 Bathing(FIM): 6 Bathing Location: L Arm, R Arm, L Upper Leg, R Upper Leg, L Lower Leg ( including foot), R Lower Leg (including foot), Chest, Abdomen, Buttocks, Perineal Area Shower/Bathe Self (QC): 6 Upper Body Dressing(FIM): 6 Upper Body Dressing (QC): 6 Lower Body Dressing(FIM): 6 Lower Body Dressing (QC): 6 On/Off Footwear (QC): 6 Toileting(FIM): 6 Toileting Hygiene (QC): 6 Transfers (B,C,W/C) (FIM): 6 Toilet/Commode Transfer(FIM): 6 Toilet/Commode Transfer (QC): 6 Tub Transfer(FIM): 4 Shower Transfer(FIM): 6 Additional Goals: 1-Demonstrate ADL Tasks, 2-Verbalize Understanding, 3- ImproveStrength/Yimi 1=Demonstrate adherence to instructed precautions during ADL tasks. 2=Patient will verbalize/demonstrate understanding of assistive devices/ modifications for ADL. 3=Patient will improve strength/tolerance for activity to enable patient to perform ADL's. OT Education/Plan Problem List/Assessment pt continues to make progress towards all goals. pt demo ability to perform all ADLS/ functional transfers independently/ MOD I with use of AE and rollator. pt continues to demo functional limitations affecting areas of ADLS/ functional transfers with deficits in: decrease activity tolerance/ endurance. pt would benefit from additional OT services to increase overall independence with ADLS/ functional transfers and for safety transition to home. Discharge Recommendations Plan/Recommendations: Continue POC Target Placement home Treatment Plan/Plan of Care Treatment,Training & Education: Yes Patient would benefit from OT for education, treatment and training to promote independence in ADL's, mobility, safety and/or upper extremity function for ADL' s. Plan of Care: ADL Retraining, Functional Mobility, Group Exercise/Act as Ind, UE Funct Exercise/Act, UE Neuromus Re-Ed/Coord Treatment Duration: July 25, 2018 Frequency: At least 5 of 7 days/Wk (IRF) Estimated Hrs Per Day: 1.5 hours per day Agreement: Yes Rehab Potential: Good Time/GCodes Start Time: 08:00 Stop Time: 09:30 Total Time Billed (hr/min): 90 Billed Treatment Time ADL 90 minutes, 6 units LILIYA GUTIÉRREZ OT Jul 09, 2018 09:23
[2018-07-09] MEDS: CATHETER FLUSH 10 ML SYR IV SCH ×2 (11:20→20:31)
--- NOTE | 2018-07-09 12:02 | Physical Therapy Daily Note ---
PT Daily Note-Current Subjective Pt. was in chair upon arrival. Pt. agreed to therapy treatment. Pt. had no complaints of pain. Transfers Therapy Code Descriptions/Definitions Functional [place] Measure: 0=Not Assessed/NA 4=Minimal Assistance 1=Total Assistance 5=Supervision or Setup 2=Maximal Assistance 6=Modified [place] 3=Moderate Assistance 7=Complete [place] Therapy Quality Codes: 6 Independent with activity with or without an assistive device 5 Patient requires set up or clean up by helper. Patient completes activity by themselves 4 Supervision or touching assist (CGA). [place] provide cues , steadying assist 3 The helper provides less than half the effort to complete the activity 2 The helper provides more than half the effort to complete the activity 1 Dependent. The helper does all the effort to complete an activity 7 Patient refused to complete or attempt activity 9 The patient did not perform the activity before the current illness or injury 88 Not attempted due to Medical conditions or safety concerns Transfers (B, C, W/C) (FIM): 6 Scootin Rollin Roll Left to Right (QC): 6 Supine to/from Sit: 6 Sit to/from Stand: 6 Sit to Lying (QC): 6 Sit to Stand (QC): 6 Chair/Ave-rg-Fugny Xfer(QC): 6 Bed to/from Chair: 6 Car Transfer (QC): 6 Pt. will have hospital bed at home and used bed rails during supine transfer and bed mobility. Pt. can do all tasks but sometimes takes extended amount of time. Weight Bearing Right Lower Extremity: Right Full Weight Bearing Left Lower Extremity: Left Full Weight Bearing Gait Training Does the Patient Walk?: Yes Gait (FIM): 6 Distance (FIM): 3=150 ft Distance: 150' x 2 Walk 10 feet (QC): 6 Walk 50 ft with 2 Turns(QC): 6 Walk 150 ft (QC): 6 Walking 10ft/uneven surface-QC: 6 Gait Level of Assist: 6 Gait Persons Needed: 1 Gait Assistive Device: Walker 4 Wheeled Pt. has slight trunk flexion during ambulation. Pt. is well aware of the environment shes in and the safety precautions that follow. Wheelchair Training Does the Pt Use a Wheelchair?: No Stair Training Stairs (FIM): 3 #of Steps: 3 1 Step (curb) (QC): 4 4 Steps (QC): 88 12 Steps (QC): 88 Stairs: Pattern: Step to Level of Assist: 4 Pt. has a ramp at home but is able to do single step inside parallel bars. Treatments Pt. transferred from chair to bed. Pt. completed bed mobility exercises. Pt. then ambulated out in [place] to transfer from car transfer. Pt. ambulated to therapy room and walked over uneven surface. Pt. then completed 3 steps up inside parallel bars using the single step box. Pt. then ambulated back to room. Pt. left in chair with call light and all needs met. Assessment Current Status: Good Progress Pt. tolerated treatment well. Pt. is looking forward to going home later this week. PT Snf Goals Snf Goals PT Food Mobile Driver Goals Time Frame: Jul 19, 2018 Transfers (B,C,W/C) (FIM): 6 Sit to Lying (QC): 6 Lying-Sitting on Side/Bed(QC): 6 Sit to Stand (QC): 6 Rollin Roll Left to Right (QC): 6 Chair/Zng-tp-Fkjmx Xfer(QC): 6 Car Transfer (QC): 6 Does the Patient Walk: Yes Gait (FIM): 2 Gait distance (FIM): 8=540-68 ft Distance: 100' Walk 10 feet (QC): 6 Walk 10ft-Uneven Surface(QC): 6 Walk 50ft with 2 Turns (QC): 6 Walk 150 ft (QC): 9 Gait Level of Assist: 6 Gait Assistive Device: FWW # of Steps: 1 1 Step (curb) (QC): 5 4 Steps (QC): 9 12 Steps (QC): 9 Stairs Level Of Assist: 5 Picking up an Object (QC): 5 PT Plan Treatment/Plan Treatment Plan: Continue Plan of Care Treatment Plan: Bed Mobility, Education, Functional Activity Yimi, Functional Strength, Group Therapy, Gait, Safety, Therapeutic Exercise, Transfers Treatment Duration: Jul 19, 2018 Frequency: At least 5 of 7 days/Wk (IRF) Estimated Hrs Per Day: 1.5 hours per day Patient and/or Family Agrees t: Yes Safety Risks/Education Patient Education: Gait Training, Transfer Techniques, Steps, Correct Positioning, Disease Process, Safety Issues Teaching Recipient: Patient Teaching Methods: Demonstration, Discussion Response to Teaching: Verbalize Understanding, Return Demonstration Time/GCodes Time In: 1000 Time Out: 1100 Total Billed Treatment Time: 60 Total Billed Treatment 1, GT, EX, FA x 2 G Codes Necessary: RENNY Small ENERGY CONTROL OFFICER Jul 09, 2018 12:02
--- NOTE | 2018-07-09 15:18 | Physical Therapy Daily Note ---
PT Daily Note-Current Subjective Pt. was in the restroom upon arrival. Pt. agreed to therapy treatment. Pt. had no complaints of pain. Transfers Therapy Code Descriptions/Definitions Functional [place] Measure: 0=Not Assessed/NA 4=Minimal Assistance 1=Total Assistance 5=Supervision or Setup 2=Maximal Assistance 6=Modified [place] 3=Moderate Assistance 7=Complete [place] Therapy Quality Codes: 6 Independent with activity with or without an assistive device 5 Patient requires set up or clean up by helper. Patient completes activity by themselves 4 Supervision or touching assist (CGA). [place] provide cues , steadying assist 3 The helper provides less than half the effort to complete the activity 2 The helper provides more than half the effort to complete the activity 1 Dependent. The helper does all the effort to complete an activity 7 Patient refused to complete or attempt activity 9 The patient did not perform the activity before the current illness or injury 88 Not attempted due to Medical conditions or safety concerns Supine to/from Sit: 6 Sit to/from Stand: 6 Sit to Lying (QC): 6 Sit to Stand (QC): 6 Weight Bearing Right Lower Extremity: Right Full Weight Bearing Left Lower Extremity: Left Full Weight Bearing Gait Training Does the Patient Walk?: Yes Distance (FIM): 3=150 ft Distance: 200' Gait Level of Assist: 6 Gait Persons Needed: 1 Gait Assistive Device: Walker 4 Wheeled Pt. walks with WBOS with a slight trunk flexion. Wheelchair Training Does the Pt Use a Wheelchair?: No Exercises Seated Therapy Exercises: Ankle pumps, Long arc quads, Kicking activity Seated Reps: 10 Treatments After pt. was done toileting, pt. ambulated to hallway with 1 RB. Pt. completed seated exercises and then ambulated back to room. Pt. left on EOB with call light and all needs met. Assessment Current Status: Good Progress Pt. tolerated treatment well. Pt. needs redirection to stay on tasks. Pt. frequently takes extended time to complete tasks. PT Hypo Dipper Goals Hypo Dipper Goals PT Hypo Dipper Goals Time Frame: Jul 19, 2018 Transfers (B,C,W/C) (FIM): 6 Sit to Lying (QC): 6 Lying-Sitting on Side/Bed(QC): 6 Sit to Stand (QC): 6 Rollin Roll Left to Right (QC): 6 Chair/Xxx-bz-Ghbkb Xfer(QC): 6 Car Transfer (QC): 6 Does the Patient Walk: Yes Gait (FIM): 2 Gait distance (FIM): 3=492-99 ft Distance: 100' Walk 10 feet (QC): 6 Walk 10ft-Uneven Surface(QC): 6 Walk 50ft with 2 Turns (QC): 6 Walk 150 ft (QC): 9 Gait Level of Assist: 6 Gait Assistive Device: FWW # of Steps: 1 1 Step (curb) (QC): 5 4 Steps (QC): 9 12 Steps (QC): 9 Stairs Level Of Assist: 5 Picking up an Object (QC): 5 PT Plan Treatment/Plan Treatment Plan: Continue Plan of Care Treatment Plan: Bed Mobility, Education, Functional Activity Yimi, Functional Strength, Group Therapy, Gait, Safety, Therapeutic Exercise, Transfers Treatment Duration: Jul 19, 2018 Frequency: At least 5 of 7 days/Wk (IRF) Estimated Hrs Per Day: 1.5 hours per day Patient and/or Family Agrees t: Yes Safety Risks/Education Patient Education: Gait Training, Transfer Techniques, Correct Positioning, Safety Issues Teaching Recipient: Patient Teaching Methods: Demonstration, Discussion Response to Teaching: Verbalize Understanding, Return Demonstration Time/GCodes Time In: 1400 Time Out: 1430 Total Billed Treatment Time: 30 Total Billed Treatment 1, GT, KASHMIR G Codes Necessary: RENNY Small PTA Jul 09, 2018 15:18
--- NOTE | 2018-07-09 17:04 | NUR ---
PARTY HOST/HOSTESS met with patient and son to review team conference summary. Patient will proceed with discharge on 07/11 as she is completing all therapy activities with modified independence. Patient is scheduled to have port placement tomorrow before discharge on 07/11. Son reports hospital bed delivery today from [facility]. Team remains in agreement for patient to utilize home health services for PT, RN and bath aide services. PARTY HOST/HOSTESS also reviewed IMM and Patient Choice Letter. Patient expresses no concerns regarding discharge plans. Patient son intends to provide transportation home on Saturday at 1 p.m. Please see discharge summary for further information.
[2018-07-09 18:00] VITALS: BP 145/78
[2018-07-09] MEDS: DARBEPOETIN 40 MCG/ML (ARANESP) HOSPITAL SC SCH (18:36)
[2018-07-09] MEDS: MONTELUKAST 10 MG (SINGULAIR) TAB PO SCH (20:31)
[2018-07-09] MEDS: ATORVASTATIN 40 MG (LIPITOR) TABLET PO SCH (20:31)
[2018-07-10] MEDS: CATHETER FLUSH 10 ML SYR IV SCH ×3 (05:31→20:18)
[2018-07-10] MEDS: KCL 10 MEQ TAB (MICRO K) PO SCH (05:31)
[2018-07-10] MEDS: FOLIC ACID 1 MG TAB PO SCH (05:31)
[2018-07-10 05:34] VITALS: BP 137/68
[2018-07-10] MEDS: inSUlin ASPART (NovoLOG) 1 UNIT/0.01 ML (CHARGE PER UNIT) SC SCH ×4 (05:36→22:22)
[2018-07-10] MEDS: RT-ADVAIR HFA 115/21 MCG PER PUFF IH SCH ×2 (07:25→19:41)
[2018-07-10] MEDS: RT-ALBUTEROL SULF 2.5 MG/3 ML PRE-MIX VIAL INH SCH ×2 (07:25→19:41)
--- NOTE | 2018-07-10 07:28 | Occupational Ther Daily Note ---
OT Current Status-Daily Note Subjective Pt alert, sitting in bathroom. Pt agrees to therapy. No c/o pain. Pt to go for procedure today. Mental Status/Objective Patient Orientation: Person, Place, Time, Situation Therapy Code Descriptions/Definitions Functional [place] Measure: 0=Not Assessed/NA 4=Minimal Assistance 1=Total Assistance 5=Supervision or Setup 2=Maximal Assistance 6=Modified [place] 3=Moderate Assistance 7=Complete [place] ADL-Treatment Due to procedure, pt is NPO. Using surgical scrub in shower. Pt required nrsg to cleanse and dress wound, increased time for shower due to surgical scrub completed. Hospital gown donned for procedure. Pt donned/doffed briefs by self using AE. Pt took increased time to complete tasks. After therapy, pt lying in bed with nrsg present completing wound care. All needs met in room. Therapy Code Descriptions/Definitions Functional [place] Measure: 0=Not Assessed/NA 4=Minimal Assistance 1=Total Assistance 5=Supervision or Setup 2=Maximal Assistance 6=Modified [place] 3=Moderate Assistance 7=Complete [place] Therapy Quality Codes: 6 Independent with activity with or without an assistive device 5 Patient requires set up or clean up by helper. Patient completes activity by themselves 4 Supervision or touching assist (CGA). [place] provide cues , steadying assist 3 The helper provides less than half the effort to complete the activity 2 The helper provides more than half the effort to complete the activity 1 Dependent. The helper does all the effort to complete an activity 7 Patient refused to complete or attempt activity 9 The patient did not perform the activity before the current illness or injury 88 Not attempted due to Medical conditions or safety concerns Bathing (FIM): 6 (Using AE to complete shower, pt able to complete by self. Tongs used to reach feet and cleanse hakeem area/buttocks.) Bathing Location: L Arm, R Arm, L Upper Leg, R Upper Leg, L Lower Leg ( including foot), R Lower Leg (including foot), Chest, Abdomen, Buttocks, Perineal Area Shower/Bathe Self (QC): 6 Shower Transfer(FIM): 6 (Using 4WW, grabbars and shower bench pt able to complete by self.) OT Short Term Goals Short Term Goals Time Frame: Jul 11, 2018 Additional Short Term Goals: 1-Demonstrate ADL Tasks, 2-Verbalize Understanding , 3-ImproveStrength/Yimi 1=Demonstrate adherence to instructed precautions during ADL tasks. 2=Patient will verbalize/demonstrate understanding of assistive devices/ modifications for ADL. 3=Patient will improve strength/tolerance for activity to enable patient to perform ADL's. OT Mcc Goals Mcc Goals Time Frame: July 25, 2018 Eating (FIM): 6 Eating (QC): 6 Groomin Oral Hygiene (QC): 6 Bathing(FIM): 6 Bathing Location: L Arm, R Arm, L Upper Leg, R Upper Leg, L Lower Leg ( including foot), R Lower Leg (including foot), Chest, Abdomen, Buttocks, Perineal Area Shower/Bathe Self (QC): 6 Upper Body Dressing(FIM): 6 Upper Body Dressing (QC): 6 Lower Body Dressing(FIM): 6 Lower Body Dressing (QC): 6 On/Off Footwear (QC): 6 Toileting(FIM): 6 Toileting Hygiene (QC): 6 Transfers (B,C,W/C) (FIM): 6 Toilet/Commode Transfer(FIM): 6 Toilet/Commode Transfer (QC): 6 Tub Transfer(FIM): 4 Shower Transfer(FIM): 6 Additional Goals: 1-Demonstrate ADL Tasks, 2-Verbalize Understanding, 3- ImproveStrength/Yimi 1=Demonstrate adherence to instructed precautions during ADL tasks. 2=Patient will verbalize/demonstrate understanding of assistive devices/ modifications for ADL. 3=Patient will improve strength/tolerance for activity to enable patient to perform ADL's. OT Education/Plan Problem List/Assessment Assessment: Decreased UE Strength, Impaired Self-Care Skills pt continues to make progress towards all goals. pt demo ability to perform all ADLS/ functional transfers independently/ MOD I with use of AE and rollator. pt continues to demo functional limitations affecting areas of ADLS/ functional transfers with deficits in: decrease activity tolerance/ endurance. pt would benefit from additional OT services to increase overall independence with ADLS/ functional transfers and for safety transition to home. Discharge Recommendations Plan/Recommendations: Continue POC Treatment Plan/Plan of Care Patient would benefit from OT for education, treatment and training to promote independence in ADL's, mobility, safety and/or upper extremity function for ADL' s. Plan of Care: ADL Retraining, Functional Mobility, Group Exercise/Act as Ind, UE Funct Exercise/Act, UE Neuromus Re-Ed/Coord Treatment Duration: July 25, 2018 Frequency: At least 5 of 7 days/Wk (IRF) Estimated Hrs Per Day: 1.5 hours per day Agreement: Yes Rehab Potential: Good Time/GCodes Start Time: 07:00 Stop Time: 08:30 Total Time Billed (hr/min): 90 Billed Treatment Time 1 visit-ADL 6 (90 min) TEA HAWKINS Jul 10, 2018 07:28
[2018-07-10] MEDS: MAGNESIUM OXIDE (MAG-OX)400 MG TAB PO SCH (08:01)
--- NOTE | 2018-07-10 08:53 | PM&R Progress Note ---
Subjective HPI/CC On Admission Date Seen by Provider: Jul 10, 2018 Time Seen by Provider: 08:30 CC: Debility requiring IRF HPI: This is a 73yoWF clinic patient of Dr Roblero who has multiple medical issues who was admitted to IRF last fall after a debility episode following an acute medical illness and subsequently went to the jail for a several weeks and then went home the end of February once her home was modified and had been doing well until she was admitted to 4th floor with sepsis and acute exacerbation of asthma and the source was the lower extremity ulcers that caused beta Strep septicemia so the ulcers have been managed by Dr Salgado and patient was placed on Vancomycin and will complete that Saturday. Her PLOF was independent at home and currently she is 1-2 person assist. Barriers to returning home alone will be ambulating and ability to perform ADL's which due to habitus will require a estimated 14 days stay. Her asthma responds to her ICS inhaler along with Neb treatments and the catheter will be removed since IVF have been AZ'ed and incontinence care will be provided. Subjective/Events-last exam Legs are dramatically improved but venous stasis dermatitis remains. Has lost. total of 42 pounds since admission to hospital initially med surg floor . Port placement today due to poor venous access chronically. Appreciate Dr Marcos. Does get incontinence at time and uses Depends chronically. Discharge on Saturday is planned. Holding Eliquis until port is placed Review of Systems General: Fatigue Objective Exam Vital Signs Vital Signs Date Time Temp Pulse Resp B/P (MAP) Pulse Ox O2 Delivery O2 Flow Rate FiO2 07/10/18 15:05 97.8 64 20 130/73 (92) 96 Room Air Capillary Refill : Less Than 3 Seconds General Appearance: No Apparent Distress, WD/WN, Chronically ill, Obese HEENT: PERRL/EOMI, Normal ENT Inspection, Pharynx Normal, Moist Mucous Membranes Neck: Full Range of Motion, Normal Inspection, Non Tender, Supple Respiratory: Chest Non Tender, No Accessory Muscle Use, No Respiratory Distress Cardiovascular: Irregularly Irregular Gastrointestinal: Normal Bowel Sounds, No Organomegaly, No Pulsatile Mass, Non Tender, Soft Back: Normal Inspection, No CVA Tenderness, No Vertebral Tenderness Extremity: Pedal Edema (lower extremity bandaged right side) Neurologic/Psychiatric: Alert, Oriented x3, Normal Mood/Affect, Abnormal Gait Skin: Normal Color, Warm/Dry, Other (improved erythema and ulcerations dramatic improvement) Lymphatic: No Adenopathy Results/Procedures Lab Patient resulted labs reviewed. FIM Transfers Therapy Code Descriptions/Definitions Functional [place] Measure: 0=Not Assessed/NA 4=Minimal Assistance 1=Total Assistance 5=Supervision or Setup 2=Maximal Assistance 6=Modified [place] 3=Moderate Assistance 7=Complete [place] Therapy Quality Codes: 6 Independent with activity with or without an assistive device 5 Patient requires set up or clean up by helper. Patient completes activity by themselves 4 Supervision or touching assist (CGA). [place] provide cues , steadying assist 3 The helper provides less than half the effort to complete the activity 2 The helper provides more than half the effort to complete the activity 1 Dependent. The helper does all the effort to complete an activity 7 Patient refused to complete or attempt activity 9 The patient did not perform the activity before the current illness or injury 88 Not attempted due to Medical conditions or safety concerns Gait Training Does the Patient Walk?: Yes Gait Assistive Device: FWW Mental Status/Objective Comprehension: 6 (glasses) Expression: 7 Social Interaction: 7 Problem Solvin Memory: 7 ADL-Treatment Feedin Eating (QC): 6 Groomin (standing at sink. no safety concerns. ) Oral Hygiene (QC): 6 Bathin (Using AE to complete shower, pt able to complete by self. Tongs used to reach feet and cleanse hakeem area/buttocks.) Bathing Location: L Arm, R Arm, L Upper Leg, R Upper Leg, L Lower Leg ( including foot), R Lower Leg (including foot), Chest, Abdomen, Buttocks, Perineal Area Shower/Bathe Self (QC): 6 Upper Extremity Dressin (pt gather clothing from closet independently ) Upper Body Dressing (QC): 6 Lower Extremity Dressin (use of AE. ) Lower Body Dressing (QC): 6 On/Off Footwear (QC): 6 (use of AE) Toiletin (3/3 toileting tasks independently with use of AE (toilet aide)) Toileting Hygiene (QC): 6 Toilet/Commode Transfer: 6 (rollater) Toilet Transfer (QC): 6 Tub: 0 Shower: 6 (Using 4WW, grabbars and shower bench pt able to complete by self.) Assessment/Plan Assessment and Plan Assess & Plan/Chief Complaint (1) Beta-hemolytic group A streptococcal sepsis- completed abx of Vanc Status: Acute (2) Ulcers of both lower extremities-Dr Salgado is appreciated Status: Acute (3) Anemia- consulting her Music Artist Dr Troncoso Status: Chronic (4) ADITI on CPAP Status: Chronic (5) Hypertension Status: Chronic (6) Diabetes Status: Chronic (7) Wheezing- improved Status: Acute (8) Asthma Status: Chronic (9) Hypotension Status: Resolved (10) Arthritis Status: Chronic (11) Osteoporosis Status: Chronic (12) Obesity Status: Chronic (13) Debility Status: Acute (14) Lymphedema Status: Chronic 15. Poor venous access will place Groshong port per Dr Marcos Plan: IRF protocol Home meds Nebs to continue which keep lungs clear Weaned O2 successfully and does not need that at DC Ambulate with assistance Safety education to prevent falls Patient will return [place] later this week with hospital bed s/p IV Vanc treatment Venous and arterial USG as outpatient Port placement today (1) Debility (2) Osteoporosis (3) Arthritis (4) Lymphedema (5) Wheezing (6) Obesity (7) Asthma (8) ADITI on CPAP (9) Anemia (10) Diabetes (11) Hypertension (12) Hypotension Resolution Date/Time: 06/25/18 @ 20:17 (13) Ulcers of both lower extremities (14) Beta-hemolytic group A streptococcal sepsis NELIA MCKEON DO Jul 10, 2018 08:53
[2018-07-10] MEDS: A & D OINT 113 GM TUBE TOP SCH ×2 (09:19→20:11)
[2018-07-10] MEDS: meTOproloL SUCCINATE 50 MG (TOPROL XL) TAB PO SCH (09:19)
[2018-07-10] MEDS: AMIODARONE 200 MG (CORDARONE) TAB PO SCH (09:19)
--- NOTE | 2018-07-10 10:31 | Physical Therapy Daily Note ---
PT Daily Note-Current Subjective Pt laying Supine upon arrival. Nurse assisting to EOB. Pt reports needing to use restroom. Pt agrees to PT. Pt a little anxious for port placement later today. Mental Status Patient Orientation: Person, Place, Time, Situation Transfers Therapy Code Descriptions/Definitions Functional [place] Measure: 0=Not Assessed/NA 4=Minimal Assistance 1=Total Assistance 5=Supervision or Setup 2=Maximal Assistance 6=Modified [place] 3=Moderate Assistance 7=Complete [place] Therapy Quality Codes: 6 Independent with activity with or without an assistive device 5 Patient requires set up or clean up by helper. Patient completes activity by themselves 4 Supervision or touching assist (CGA). [place] provide cues , steadying assist 3 The helper provides less than half the effort to complete the activity 2 The helper provides more than half the effort to complete the activity 1 Dependent. The helper does all the effort to complete an activity 7 Patient refused to complete or attempt activity 9 The patient did not perform the activity before the current illness or injury 88 Not attempted due to Medical conditions or safety concerns Transfers (B, C, W/C) (FIM): 6 Scootin Rollin Roll Left to Right (QC): 6 Supine to/from Sit: 6 Sit to/from Stand: 6 Sit to Lying (QC): 6 Sit to Stand (QC): 6 Chair/Lky-se-Lkuap Xfer(QC): 6 Bed to/from Chair: 6 Car Transfer (QC): 6 Weight Bearing Right Lower Extremity: Right Full Weight Bearing Left Lower Extremity: Left Full Weight Bearing Gait Training Does the Patient Walk?: Yes Gait (FIM): 6 Distance (FIM): 3=150 ft Distance: 150' x2 Walk 10 feet (QC): 6 Walk 50 ft with 2 Turns(QC): 6 Walk 150 ft (QC): 6 Walking 10ft/uneven surface-QC: 6 Gait Level of Assist: 6 Gait Persons Needed: 1 Gait Assistive Device: Walker 4 Wheeled Wheelchair Training Does the Pt Use a Wheelchair?: No Stair Training Will complete in afternoon session. Balance Picking up an Object (QC): 88 Special Test Comments Pt does not complete due to safety, uses a senior supplier quality engineer at home. Exercises Supine Ex: Ankle pumps, Quad Set, Glut sets, Heel Slides, Short Arc Quads, Hip abd/add Supine Reps: 15 Treatments Pt transfer and ambulates using 4WW at [facility]. Pt completes bed mobility, ambulation, car transfer, walking across varying surface as well as toileting. Pt returns to room to rest at end of tx. Pt laying Supine in bed with all needs met. Assessment Current Status: Good Progress Pt tolerates tx well. Pt will continue to improve with strength & mobility upon D/C tomorrow (07/11). PT Group Home Goals Group Home Goals PT Group Home Goals Time Frame: Jul 19, 2018 Transfers (B,C,W/C) (FIM): 6 Sit to Lying (QC): 6 Lying-Sitting on Side/Bed(QC): 6 Sit to Stand (QC): 6 Rollin Roll Left to Right (QC): 6 Chair/Qko-hv-Lwxkn Xfer(QC): 6 Car Transfer (QC): 6 Does the Patient Walk: Yes Gait (FIM): 2 Gait distance (FIM): 2=961-61 ft Distance: 100' Walk 10 feet (QC): 6 Walk 10ft-Uneven Surface(QC): 6 Walk 50ft with 2 Turns (QC): 6 Walk 150 ft (QC): 9 Gait Level of Assist: 6 Gait Assistive Device: FWW # of Steps: 1 1 Step (curb) (QC): 5 4 Steps (QC): 9 12 Steps (QC): 9 Stairs Level Of Assist: 5 Picking up an Object (QC): 5 PT Plan Problem List Problem List: Activity Tolerance Treatment/Plan Treatment Plan: Continue Plan of Care Treatment Plan: Bed Mobility, Education, Functional Activity Yimi, Functional Strength, Group Therapy, Gait, Safety, Therapeutic Exercise, Transfers Treatment Duration: Jul 19, 2018 Frequency: At least 5 of 7 days/Wk (IRF) Estimated Hrs Per Day: 1.5 hours per day Patient and/or Family Agrees t: Yes Safety Risks/Education Patient Education: Gait Training, Transfer Techniques, Correct Positioning, Safety Issues Teaching Recipient: Patient Teaching Methods: Discussion Response to Teaching: Verbalize Understanding Time/GCodes Time In: 1000 Time Out: 1100 Total Billed Treatment Time: 60 Total Billed Treatment 1, GT (20m), EX x2 (25m) & FA (15m) G Codes Necessary: RENNY Small SHORT PIECE HANDLER Jul 10, 2018 10:31
--- NOTE | 2018-07-10 13:07 | D/C HH Face to Face Order ---
D/C Face to Face Orders Instructions for Patient Via [facility], Patient Instructions/FollowUp: Dr Roblero in [address] Salgado for outpatient wound care once a week Physician to follow Patient: Dr Liu Roblero Discharge Diet for Home: ADA Diet Patient Problems: Debility Lower extremity wounds with venous stasis dermatitis ADITI Asthma DM AF Goals for Patient: Return to independent living Patient Data-Allergies,Ht & Wt Patient Allergies: Coded Allergies: NSAIDS (Non-Steroidal Anti-Inflamma (Verified Allergy, Severe, BLOOD IN URINE, 06/23/18) celecoxib (Unverified Allergy, Severe, BLOOD IN URINE, 06/23/18) penicillin G (Verified Allergy, Unknown, HAS RECEIVED ANCEF W/O ISSUE, ) Height (Feet): 5 Height (Inches): 4.00 Weight (Pounds): 292 Weight (Ounces): 0.6 Home Health Need/Face to Face Date of Face to Face: Jul 10, 2018 Clinical Findings: Generalized weakness and fatigue, Muscle weakness, Unsteady gait, Non-healing wound I have seen Pt evlg-wq-dihn: Yes Discharged To: Home Diagnosis/Conditions: Debility Lower extremity wounds with venous stasis dermatitis ADITI Asthma DM AF Patient is Homebound due to: Jovani fall risk due to instabilty, Muscle weakness , Shortness of breath/distress Homebound Status Due to the above stated illness, injury or surgical procedure (medical condition or diagnosis) and associated clinical findings, the patient is homebound because of his/her inability to leave home except with aid of a supportive device and/or person AND leaving the home requires a considerable and taxing effort or is medically contraindicated. Pt req the following assistanc: Walker Home Health Nursing Orders Home Health Services Order: Nursing Services, Wire Spiral Binder-Evaluate & Treat, Physical Therapy-Evaluate & Treat, Other (bath aide) Home Health Infusion Therapy Line Type: Saline Lock Site Location: Antecubital Certify Stmt I certify that this patient is under my care and that I, a nurse practitioner or a physician; a melter assistant working with me, had a face to face encounter that - meets the physician face to face encounter requirements with this patient as dated. NELIA MCKEON DO Jul 10, 2018 13:07
[2018-07-10 15:05] VITALS: BP 130/73
[2018-07-10] MEDS: ACETAMINOPHEN 500 MG TAB (TYLENOL) PO PRN ×2 (15:20→23:41)
--- NOTE | 2018-07-10 15:41 | Physical Therapy Daily Note ---
PT Daily Note-Current Subjective Pt sitting up in bed with Nurse giving meds. Pt agrees to Supine Ex in bed. Pain Numeric Pain Scale: 6 Location: Right, Left Location Body Site: Knee Pain Description: Ache Mental Status Patient Orientation: Person, Place, Time, Situation Transfers Therapy Code Descriptions/Definitions Functional [place] Measure: 0=Not Assessed/NA 4=Minimal Assistance 1=Total Assistance 5=Supervision or Setup 2=Maximal Assistance 6=Modified [place] 3=Moderate Assistance 7=Complete [place] Therapy Quality Codes: 6 Independent with activity with or without an assistive device 5 Patient requires set up or clean up by helper. Patient completes activity by themselves 4 Supervision or touching assist (CGA). [place] provide cues , steadying assist 3 The helper provides less than half the effort to complete the activity 2 The helper provides more than half the effort to complete the activity 1 Dependent. The helper does all the effort to complete an activity 7 Patient refused to complete or attempt activity 9 The patient did not perform the activity before the current illness or injury 88 Not attempted due to Medical conditions or safety concerns Weight Bearing Right Lower Extremity: Right Full Weight Bearing Left Lower Extremity: Left Full Weight Bearing Exercises Supine Ex: Ankle pumps, Quad Set, Glut sets, Heel Slides, Hip abd/add Supine Reps: 10 (2 sets) Treatments Pt completes Supine Ex in bed with occasional RB as needed. Pt has all needs met and is resting in bed at end of tx. Assessment Current Status: Good Progress Pt very motivated to complete Ex. PT Half-Way Goals Senior Qualitative Researcher Goals PT Senior Qualitative Researcher Goals Time Frame: Jul 19, 2018 Transfers (B,C,W/C) (FIM): 6 Sit to Lying (QC): 6 Lying-Sitting on Side/Bed(QC): 6 Sit to Stand (QC): 6 Rollin Roll Left to Right (QC): 6 Chair/Zud-ni-Hjdhi Xfer(QC): 6 Car Transfer (QC): 6 Does the Patient Walk: Yes Gait (FIM): 2 Gait distance (FIM): 4=280-33 ft Distance: 100' Walk 10 feet (QC): 6 Walk 10ft-Uneven Surface(QC): 6 Walk 50ft with 2 Turns (QC): 6 Walk 150 ft (QC): 9 Gait Level of Assist: 6 Gait Assistive Device: FWW # of Steps: 1 1 Step (curb) (QC): 5 4 Steps (QC): 9 12 Steps (QC): 9 Stairs Level Of Assist: 5 Picking up an Object (QC): 5 PT Plan Problem List Problem List: Activity Tolerance, Functional Strength Treatment/Plan Treatment Plan: Continue Plan of Care Treatment Plan: Bed Mobility, Education, Functional Activity Yimi, Functional Strength, Group Therapy, Gait, Safety, Therapeutic Exercise, Transfers Treatment Duration: Jul 19, 2018 Frequency: At least 5 of 7 days/Wk (IRF) Estimated Hrs Per Day: 1.5 hours per day Patient and/or Family Agrees t: Yes Safety Risks/Education Patient Education: Correct Positioning, Safety Issues Teaching Recipient: Patient Teaching Methods: Discussion Response to Teaching: Verbalize Understanding Time/GCodes Time In: 1520 Time Out: 1550 Total Billed Treatment Time: 30 Total Billed Treatment 1, EX x2 (30m) G Codes Necessary: RENNY Small CARTON AND CAN SUPPLY SUPERVISOR Jul 10, 2018 15:41
--- NOTE | 2018-07-10 15:46 | NUR ---
Pt has returned to room from port placement, pt is A/O, on R/A, pleasant. Only c/o arthritis soreness in knees. Ice pack over upper Rt port placement. IV of L/R infusing per patent site Rt A/C. Pt states that they had to stick her 5 times to get the one in the Rt A/C, "so, I guess I really needed it." Referring to the new port.
[2018-07-10] MEDS: IRON SUCROSE 200 MG/10 ML (VENOFER) VIAL IV SCH (19:00)
[2018-07-10] MEDS ORDERED: IRON SUCROSE 200 MG/10 ML (VENOFER) VIAL IV SCH (19:30)
--- NOTE | 2018-07-10 19:35 | NUR ---
Spoke w Pharmacy; notified that unable to obtain Venofer to administer, they are going to look at it.
[2018-07-10] MEDS: ATORVASTATIN 40 MG (LIPITOR) TABLET PO SCH (20:10)
[2018-07-10] MEDS: MONTELUKAST 10 MG (SINGULAIR) TAB PO SCH (20:10)
--- NOTE | 2018-07-10 20:19 | Progress Note-Post Operative ---
Post-Operative Progess Note Surgeon (s)/Special Education Associate (s) Surgeon GURDEEP FORD DO Special Education Associate: na Pre-Operative Diagnosis poor venous access Post-Operative Diagnosis same Procedure & Operative Findings Date of Procedure 07/10/18 Procedure Performed/Findings u/s guided right ij port Anesthesia Type mac c local Estimated Blood Loss Estimated blood loss (mL): min Specimens/Packing Specimens Removed na GURDEEP FORD DO Jul 10, 2018 20:19
[2018-07-11 05:33] VITALS: BP 118/69
[2018-07-11] MEDS: inSUlin ASPART (NovoLOG) 1 UNIT/0.01 ML (CHARGE PER UNIT) SC SCH ×2 (06:00→10:50)
[2018-07-11] MEDS: FOLIC ACID 1 MG TAB PO SCH (06:00)
[2018-07-11] MEDS: KCL 10 MEQ TAB (MICRO K) PO SCH (06:00)
[2018-07-11] MEDS: CATHETER FLUSH 10 ML SYR IV SCH (06:01)
--- NOTE | 2018-07-11 06:16 | OPERATIVE REPORT ---
DATE OF SERVICE: 07/10/2018 PREOPERATIVE DIAGNOSIS: Poor venous access. POSTOPERATIVE DIAGNOSIS: Poor venous access. PROCEDURE: Port placement, ultrasound-guided right internal jugular vein. SURGEON: Gurdeep Marcos DO. ANESTHESIA: MAC with local. ESTIMATED BLOOD LOSS: Minimal. COMPLICATIONS: None. INDICATIONS: The patient is a 73-year-old female needing port placement. She understands risks and benefits and wished to proceed with procedure. Consent was signed in the chart. DESCRIPTION OF PROCEDURE: The patient was taken to the operating suite. She was prepped and draped in sterile fashion. Surgical pause was performed. Using ultrasound, the right internal jugular vein was located. Local anesthetic was used to infiltrate the area. Under direct visualization of the ultrasound, the right internal jugular vein was accessed with micro access needle. Dark nonpulsatile blood was withdrawn. Micro access wire was inserted through the needle and needle was removed. A #11 blade scalpel was used to make a small skin incision. Fluoroscopy assured proper placement. The dilator sheath was then advanced over the guidewire and the wire and dilator were removed. The regular guidewire was inserted through the sheath and then the sheath was removed. Fluoroscopy assured proper placement. Wire was then secured. Local anesthetic was used to infiltrate the right neck and down on to the right chest for pocket creation. The 15 blade scalpel was used to make a skin incision and pocket was then created with both cautery, sharp and blunt dissection. Under fluoroscopy, the right internal jugular vein then had dilator sheath advanced over the wire and the wire and dilator were removed. The Groshong catheter was inserted through the sheath. The sheath was then removed. The catheter was then tunneled from the insertion point down to the right pocket that was created on the right chest. The catheter was then cut to length and attached to the port, which was then accessed without difficulty and flushed without difficulty, first with saline and then with heparin. Fluoroscopy assured proper placement. The subcutaneous tissues were then reapproximated using 3-0 Vicryl. The skin was then washed and dried and Skin Affix was placed over the incisions. The patient tolerated procedure well without any complications. She was taken to recovery room in stable condition. Chest x-ray pending. Job ID: [id number] DocumentID: [id number] Dictated Date: 07/10/2018 20:26:56 Director Of Leadership Development Date: 07/11/2018 06:16:32 Dictated By: GURDEEP MARCOS DO
[2018-07-11] MEDS: RT-ADVAIR HFA 115/21 MCG PER PUFF IH SCH (07:13)
[2018-07-11] MEDS: RT-ALBUTEROL SULF 2.5 MG/3 ML PRE-MIX VIAL INH SCH (07:14)
[2018-07-11] MEDS: MAGNESIUM OXIDE (MAG-OX)400 MG TAB PO SCH (08:30)
[2018-07-11] MEDS: ACETAMINOPHEN 500 MG TAB (TYLENOL) PO PRN ×2 (08:30→14:31)
[2018-07-11] MEDS ORDERED: FUROSEMIDE 20 MG (LASIX) TAB PO SCH (09:00)
[2018-07-11] MEDS: meTOproloL SUCCINATE 50 MG (TOPROL XL) TAB PO SCH (09:20)
[2018-07-11] MEDS: AMIODARONE 200 MG (CORDARONE) TAB PO SCH (09:20)
[2018-07-11] MEDS: A & D OINT 113 GM TUBE TOP SCH (09:21)
[2018-07-11] MEDS: FUROSEMIDE 20 MG (LASIX) TAB PO SCH (09:24)
[2018-07-11] MEDS: FUROSEMIDE 40 MG (LASIX) TAB PO SCH (09:24)
--- NOTE | 2018-07-11 09:25 | NUR ---
Lasix 60 mg po given as ordered, to resume previous meds.
--- NOTE | 2018-07-11 09:55 | Discharge Summary ---
Diagnosis/Chief Complaint Date of Admission Jun 27, 2018 at 09:55 Date of Discharge Discharge Date: Jul 11, 2018 Discharge Diagnosis Assess & Plan/Chief Complaint (1) Beta-hemolytic group A streptococcal sepsis- completed abx of Vanc Status: Acute (2) Ulcers of both lower extremities-Dr Salgado is appreciated Status: Acute (3) Anemia- consulting her [facility] Dr Troncoso-receiving iron infusions Status: Chronic (4) ADITI on CPAP Status: Chronic (5) Hypertension Status: Chronic (6) Diabetes Status: Chronic (7) Wheezing- improved Status: Acute (8) Asthma Status: Chronic (9) Hypotension Status: Resolved (10) Arthritis Status: Chronic (11) Osteoporosis Status: Chronic (12) Obesity Status: Chronic (13) Debility Status: Acute (14) Lymphedema Status: Chronic 15. Poor venous access s/p Groshong port per Dr Marcos POD # 1 Plan: IRF protocol Home meds Nebs to continue which keep lungs clear Weaned O2 successfully and does not need that at DC Ambulate with assistance Safety education to prevent falls Patient will return home at [place] later this week with hospital bed s/p IV Vanc treatment Venous and arterial USG as outpatient Port placement Discharge home Discharge Summary Discharge Physical Examination Allergies: Coded Allergies: NSAIDS (Non-Steroidal Anti-Inflamma (Verified Allergy, Severe, BLOOD IN URINE, 06/23/18) celecoxib (Unverified Allergy, Severe, BLOOD IN URINE, 06/23/18) penicillin G (Verified Allergy, Unknown, HAS RECEIVED ANCEF W/O ISSUE, ) Vitals & I&Os Vital Signs Date Time Temp Pulse Resp B/P (MAP) Pulse Ox O2 Delivery O2 Flow Rate FiO2 07/11/18 07:24 Room Air 07/11/18 07:15 95 07/11/18 05:33 98.2 67 20 118/69 (85) Hospital Course Was the Problem List Reviewed?: Yes Hospital course: Patient had a lengthy hospital course but worthwhile since she return to prior level of functioning where [facility] was [facility] and beta strep septicemia. The source of that septicemia was assessed to be from the wound on her right lower extremity but interestingly enough the wound culture did not culture out beta strep. She had volume overload managed by cardiology for diuresis of which she lost 42 pounds of fluid since admission. She required Gro[place]ong port placement by Dr. Marcos due to poor venous access that has been chronic in nature and instead of placement of midline she has had before she underwent the Groshong port upon Dr. Gaines recommendations. She did receive iron infusions while she was hospitalized in inpatient rehabilitation. Dr. Salgado provided wound care and her legs looked dramatically improved at time of discharge. She wanted a hospital bed facilitated by manager social media Anna and overall felt very confident in returning home with home health care and was able to ambulate well and focus on fall prevention. Labs (last 24 hrs) Laboratory Tests 06/27/18 11:27: Glucometer 131H 06/27/18 18:09: Glucometer 104 06/27/18 22:03: Glucometer 133H 06/28/18 04:20: White Blood Count 7.9, Red Blood Count 3.05L, Hemoglobin 9.1L, Hematocrit 29L, Mean Corpuscular Volume 96, Mean Corpuscular Hemoglobin 30, Mean Corpuscular Hemoglobin Concent 31L, Red Cell Distribution Width 14.5, Platelet Count 232, Mean Platelet Volume 9.3, Neutrophils (%) (Auto) 72, Lymphocytes (%) (Auto) 16, Monocytes (%) (Auto) 9, Eosinophils (%) (Auto) 2, Basophils (%) (Auto) 0, Neutrophils # (Auto) 5.7, Lymphocytes # (Auto) 1.3, Monocytes # (Auto) 0.7, Eosinophils # (Auto) 0.2, Basophils # (Auto) 0.0, Sodium Level 143, Potassium Level 3.7, Chloride Level 108H, Carbon Dioxide Level 27, Anion Gap 8, Blood Urea Nitrogen 20H, Creatinine 0.96, Estimat Glomerular Filtration Rate 57, BUN/ Creatinine Ratio 21, Glucose Level 126H, Calcium Level 8.1L, Corrected Calcium 9.1, Total Bilirubin 0.3, Aspartate Amino Transf (AST/SGOT) 25, Alanine Aminotransferase (ALT/SGPT) 21, Alkaline Phosphatase 108, Total Protein 5.7L, Albumin 2.8L 06/28/18 11:22: Glucometer 137H 06/28/18 17:02: Glucometer 137H 06/28/18 20:52: Glucometer 125H 06/29/18 06:13: Glucometer 124H 06/29/18 13:12: Glucometer 175H 06/29/18 18:34: Glucometer 112H 06/29/18 21:14: Glucometer 129H 06/30/18 06:01: Glucometer 147H 06/30/18 11:01: Glucometer 124H 06/30/18 15:44: Glucometer 106 06/30/18 21:40: Glucometer 145H 07/01/18 05:55: Glucometer 108 07/01/18 11:01: Glucometer 114H 07/01/18 15:37: Glucometer 119H 07/01/18 21:16: Glucometer 128H 07/02/18 04:50: White Blood Count 8.9, Red Blood Count 2.98L, Hemoglobin 8.8L, Hematocrit 29L, Mean Corpuscular Volume 96, Mean Corpuscular Hemoglobin 30, Mean Corpuscular Hemoglobin Concent 31L, Red Cell Distribution Width 14.4, Platelet Count 298, Mean Platelet Volume 8.4, Neutrophils (%) (Auto) 80H, Lymphocytes (%) (Auto) 12 , Monocytes (%) (Auto) 7, Eosinophils (%) (Auto) 1, Basophils (%) (Auto) 0, Neutrophils # (Auto) 7.1, Lymphocytes # (Auto) 1.0, Monocytes # (Auto) 0.6, Eosinophils # (Auto) 0.1, Basophils # (Auto) 0.0, Sodium Level 140, Potassium Level 4.0, Chloride Level 106, Carbon Dioxide Level 29, Anion Gap 5, Blood Urea Nitrogen 20H, Creatinine 0.86, Estimat Glomerular Filtration Rate > 60, BUN/ Creatinine Ratio 23, Glucose Level 115H, Calcium Level 8.5, Corrected Calcium 9.3, Iron Level 20L, Total Iron Binding Capacity 222L, Unsaturated Iron Binding Capacity 202, Transferrin % Saturation 9L, Ferritin 519.5H, Total Bilirubin 0.4 , Aspartate Amino Transf (AST/SGOT) 13, Alanine Aminotransferase (ALT/SGPT) 15, Alkaline Phosphatase 93, Total Protein 6.3L, Albumin 3.0L 07/02/18 10:51: Glucometer 125H 07/02/18 15:36: Glucometer 132H 07/02/18 16:45: White Blood Count 10.5, Red Blood Count 3.01L, Hemoglobin 8.9L, Hematocrit 29L, Mean Corpuscular Volume 96, Mean Corpuscular Hemoglobin 30, Mean Corpuscular Hemoglobin Concent 31L, Red Cell Distribution Width 14.5, Platelet Count 300, Mean Platelet Volume 8.7, Neutrophils (%) (Auto) 82H, Lymphocytes (%) (Auto) 10L , Monocytes (%) (Auto) 7, Eosinophils (%) (Auto) 1, Basophils (%) (Auto) 0, Neutrophils # (Auto) 8.6H, Lymphocytes # (Auto) 1.1, Monocytes # (Auto) 0.7, Eosinophils # (Auto) 0.1, Basophils # (Auto) 0.0, Absolute Reticulocyte Count 56 , Percent Reticulocyte Count 1.85 07/02/18 21:47: Glucometer 146H 07/03/18 06:08: Glucometer 110 07/03/18 11:49: Glucometer 114H 07/03/18 18:44: Glucometer 125H 07/03/18 22:47: Glucometer 176H 07/04/18 06:13: Glucometer 141H 07/04/18 11:25: Glucometer 151H 07/04/18 15:40: Glucometer 123H 07/04/18 20:58: Glucometer 151H 07/05/18 07:22: Glucometer 116H 07/05/18 11:14: Glucometer 174H 07/05/18 16:03: Glucometer 123H 07/05/18 22:42: Glucometer 162H 07/06/18 06:18: Glucometer 126H 07/06/18 14:57: Glucometer 111H 07/06/18 19:09: Glucometer 107 07/07/18 05:41: Glucometer 141H 07/07/18 11:28: Glucometer 133H 07/07/18 16:56: Glucometer 157H 07/07/18 20:58: Glucometer 134H 07/08/18 04:53: Glucometer 115H 07/08/18 10:51: Glucometer 101 07/08/18 17:36: Glucometer 97 07/08/18 21:26: Glucometer 131H 07/09/18 06:18: Glucometer 119H 07/09/18 11:16: Glucometer 105 07/09/18 17:22: Glucometer 101 07/09/18 21:08: Glucometer 118H 07/10/18 05:29: Glucometer 113H 07/10/18 15:34: Glucometer 84 07/11/18 05:32: Glucometer 114H Microbiology 07/09/18 MRSA Screen - Final, Complete MRSA not isolated Pending Labs Microbiology Date/Time Source Procedure Growth Status 07/09/18 06:50 Nasal MRSA Screen - Final MRSA not isolated Complete Laboratory Tests 06/27/18 11:27: Glucometer 131 06/27/18 18:09: Glucometer 104 06/27/18 22:03: Glucometer 133 06/28/18 04:20: White Blood Count 7.9, Red Blood Count 3.05, Hemoglobin 9.1, Hematocrit 29, Mean Corpuscular Volume 96, Mean Corpuscular Hemoglobin 30, Mean Corpuscular Hemoglobin Concent 31, Red Cell Distribution Width 14.5, Platelet Count 232, Mean Platelet Volume 9.3, Neutrophils (%) (Auto) 72, Lymphocytes (%) (Auto) 16, Monocytes (%) (Auto) 9, Eosinophils (%) (Auto) 2, Basophils (%) (Auto) 0, Neutrophils # (Auto) 5.7, Lymphocytes # (Auto) 1.3, Monocytes # (Auto) 0.7, Eosinophils # (Auto) 0.2, Basophils # (Auto) 0.0, Sodium Level 143, Potassium Level 3.7, Chloride Level 108, Carbon Dioxide Level 27, Anion Gap 8, Blood Urea Nitrogen 20, Creatinine 0.96, Estimat Glomerular Filtration Rate 57, BUN/ Creatinine Ratio 21, Glucose Level 126, Calcium Level 8.1, Corrected Calcium 9.1 , Total Bilirubin 0.3, Aspartate Amino Transf (AST/SGOT) 25, Alanine Aminotransferase (ALT/SGPT) 21, Alkaline Phosphatase 108, Total Protein 5.7, Albumin 2.8 06/28/18 11:22: Glucometer 137 06/28/18 17:02: Glucometer 137 06/28/18 20:52: Glucometer 125 06/29/18 06:13: Glucometer 124 06/29/18 13:12: Glucometer 175 06/29/18 18:34: Glucometer 112 06/29/18 21:14: Glucometer 129 06/30/18 06:01: Glucometer 147 06/30/18 11:01: Glucometer 124 06/30/18 15:44: Glucometer 106 06/30/18 21:40: Glucometer 145 07/01/18 05:55: Glucometer 108 07/01/18 11:01: Glucometer 114 07/01/18 15:37: Glucometer 119 07/01/18 21:16: Glucometer 128 07/02/18 04:50: White Blood Count 8.9, Red Blood Count 2.98, Hemoglobin 8.8, Hematocrit 29, Mean Corpuscular Volume 96, Mean Corpuscular Hemoglobin 30, Mean Corpuscular Hemoglobin Concent 31, Red Cell Distribution Width 14.4, Platelet Count 298, Mean Platelet Volume 8.4, Neutrophils (%) (Auto) 80, Lymphocytes (%) (Auto) 12, Monocytes (%) (Auto) 7, Eosinophils (%) (Auto) 1, Basophils (%) (Auto) 0, Neutrophils # (Auto) 7.1, Lymphocytes # (Auto) 1.0, Monocytes # (Auto) 0.6, Eosinophils # (Auto) 0.1, Basophils # (Auto) 0.0, Sodium Level 140, Potassium Level 4.0, Chloride Level 106, Carbon Dioxide Level 29, Anion Gap 5, Blood Urea Nitrogen 20, Creatinine 0.86, Estimat Glomerular Filtration Rate > 60, BUN/ Creatinine Ratio 23, Glucose Level 115, Calcium Level 8.5, Corrected Calcium 9.3 , Iron Level 20, Total Iron Binding Capacity 222, Unsaturated Iron Binding Capacity 202, Transferrin % Saturation 9, Ferritin 519.5, Total Bilirubin 0.4, Aspartate Amino Transf (AST/SGOT) 13, Alanine Aminotransferase (ALT/SGPT) 15, Alkaline Phosphatase 93, Total Protein 6.3, Albumin 3.0 07/02/18 10:51: Glucometer 125 07/02/18 15:36: Glucometer 132 07/02/18 16:45: White Blood Count 10.5, Red Blood Count 3.01, Hemoglobin 8.9, Hematocrit 29, Mean Corpuscular Volume 96, Mean Corpuscular Hemoglobin 30, Mean Corpuscular Hemoglobin Concent 31, Red Cell Distribution Width 14.5, Platelet Count 300, Mean Platelet Volume 8.7, Neutrophils (%) (Auto) 82, Lymphocytes (%) (Auto) 10, Monocytes (%) (Auto) 7, Eosinophils (%) (Auto) 1, Basophils (%) (Auto) 0, Neutrophils # (Auto) 8.6, Lymphocytes # (Auto) 1.1, Monocytes # (Auto) 0.7, Eosinophils # (Auto) 0.1, Basophils # (Auto) 0.0, Absolute Reticulocyte Count 56 , Percent Reticulocyte Count 1.85 07/02/18 21:47: Glucometer 146 07/03/18 06:08: Glucometer 110 07/03/18 11:49: Glucometer 114 07/03/18 18:44: Glucometer 125 07/03/18 22:47: Glucometer 176 07/04/18 06:13: Glucometer 141 07/04/18 11:25: Glucometer 151 07/04/18 15:40: Glucometer 123 07/04/18 20:58: Glucometer 151 07/05/18 07:22: Glucometer 116 07/05/18 11:14: Glucometer 174 07/05/18 16:03: Glucometer 123 07/05/18 22:42: Glucometer 162 07/06/18 06:18: Glucometer 126 07/06/18 14:57: Glucometer 111 07/06/18 19:09: Glucometer 107 07/07/18 05:41: Glucometer 141 07/07/18 11:28: Glucometer 133 07/07/18 16:56: Glucometer 157 07/07/18 20:58: Glucometer 134 07/08/18 04:53: Glucometer 115 07/08/18 10:51: Glucometer 101 07/08/18 17:36: Glucometer 97 07/08/18 21:26: Glucometer 131 07/09/18 06:18: Glucometer 119 07/09/18 11:16: Glucometer 105 07/09/18 17:22: Glucometer 101 07/09/18 21:08: Glucometer 118 07/10/18 05:29: Glucometer 113 07/10/18 15:34: Glucometer 84 07/11/18 05:32: Glucometer 114 Discharge Home Medications: Active Scripts Active Reported Aranesp (Darbepoetin Felice in [place]ysorbat) 40 Mcg/1 Ml Vial 35 Mcg IV EVERY 2 WEEKS Metoprolol Succinate 50 Mg Tab.er.24h 50 Mg PO DAILY Amiodarone HCl 200 Mg Tablet 200 Mg PO DAILY Tramadol HCl 50 Mg Tablet 50-100 Mg PO Q6H PRN Calcium Carbonate 600 Mg Tablet 600 Mg PO DAILY Eliquis (Apixaban) 5 Mg Tablet 5 Mg PO BID Magnesium Citrate 125 Mg Capsule 250 Mg PO HS TAKES 2 (125MG) CAPSULES Potassium Chloride 10 Meq Tablet.er 10 Meq PO DAILY Furosemide 40 Mg Tablet 60 Mg PO DAILY TAKES 1 & 1/2 (40MG) TABLET Ventolin Hfa (Albuterol Sulfate) 18 Gm Hfa.aer.ad 2 Puff INH Q4H PRN Advair 250-50 Diskus (Fluticasone/Salmeterol) 1 Each Blst.w.dev 1 Puff INH BID Tylenol Extra Strength (Acetaminophen) 500 Mg Tablet 1,000 Mg PO Q4H PRN Atorvastatin Calcium 40 Mg Tablet 40 Mg PO HS Montelukast Sodium 10 Mg Tablet 10 Mg PO HS Vitamin D3 (Cholecalciferol (Vitamin D3)) 2,000 Unit Capsule 2,000 Unit PO DAILY Vitamin C (Ascorbate Calcium) 500 Mg Tablet 500 Mg PO DAILY Folic Acid 1 Mg Tablet 1 Mg PO DAILY Vitamin B-12 (Cyanocobalamin) 100 Mcg Tablet 200 Mcg PO DAILY Instructions to patient/family Please see electronic discharge instructions given to patient. Diagnosis/Problems Diagnosis/Problems (1) Debility Status: Acute (2) Osteoporosis Status: Chronic (3) Arthritis Status: Chronic (4) Lymphedema Status: Chronic (5) Wheezing Status: Acute (6) Obesity Status: Chronic (7) Asthma Status: Chronic (8) ADITI on CPAP Status: Chronic (9) Anemia Status: Chronic (10) Diabetes Status: Chronic (11) Hypertension Status: Chronic (12) Hypotension Status: Resolved Resolution Date/Time: 06/25/18 @ 20:17 (13) Ulcers of both lower extremities Status: Acute (14) Beta-hemolytic group A streptococcal sepsis Status: Acute Clinical Quality Measures DVT/VTE Risk/Contraindication: Risk Factor Score Per Nursin RFS Level Per Nursing on Admit: 4+=Very High NELIA MCKEON DO Jul 11, 2018 09:55
[2018-07-11] MEDS ORDERED: APIXABAN 5 MG (ELIQUIS) TABLET PO SCH (11:00)
--- NOTE | 2018-07-11 12:41 | Therapy Team Discharge Summary ---
Therapy Discharge Summary Discharge Recommendations Date of Discharge 07/11/2018 Therapy D/C Recommendations: Home Independently Physical Therapy This patient was seen on ARU post acute hospital stay due to sepsis. Her PLOF was mod indep with bed mobiolity and transfers and able to walk household distances with her AD mod indep; she did not perform stairs as she has a ramp. At evaluation she was max assist with transers, walked 60 ft with assist and went up/down a step with mod assist. Treatment has focused on functional strength and balance to promote transfers and gait. At discharge, she was mod indep with gait and transfers and able to safely mobilize without assist. She has made excellent progress and has achieved all goals to a satisfactory level. Will dc at this time. Recommend [facility] PT to follow. Occupational Therapy Decreased UE Strength, Impaired Self-Care Skills PT Freight Brakeman Goals Alf Goals PT Alf Goals Time Frame: Jul 19, 2018 Transfers (B,C,W/C) (FIM): 6 (met) Roll Left to Right (QC): 6 Sit to Lying (QC): 6 Lying-Sitting on Side/Bed(QC): 6 Sit to Stand (QC): 6 Chair/Dek-el-Uikeq Xfer(QC): 6 Car Transfer (QC): 6 Does the Patient Walk: Yes Gait (FIM): 2 (mdt) Gait distance (FIM): 4=580-96 ft Distance: 100' Walk 10 feet (QC): 6 Walk 10ft-Uneven Surface(QC): 6 Walk 50ft with 2 Turns (QC): 6 Walk 150 ft (QC): 9 Gait Level of Assist: 6 Gait Assistive Device: FWW # of Steps: 1 1 Step (curb) (QC): 5 4 Steps (QC): 9 12 Steps (QC): 9 Stairs Level Of Assist: 5 Picking up an Object (QC): 5 All goals met to a satisfactory level. OT Alf Goals Alf Goals Time Frame: July 25, 2018 Eating (FIM): 6 Eating (QC): 6 Oral Hygiene (QC): 6 Grooming(FIM): 6 Bathing(FIM): 6 Bathing Location: L Arm, R Arm, L Upper Leg, R Upper Leg, L Lower Leg ( including foot), R Lower Leg (including foot), Chest, Abdomen, Buttocks, Perineal Area Shower/Bathe Self (QC): 6 Upper Body Dressing(FIM): 6 Upper Body Dressing (QC): 6 Lower Body Dressing(FIM): 6 Lower Body Dressing (QC): 6 On/Off Footwear (QC): 6 Toileting(FIM): 6 Toileting Hygiene (QC): 6 Transfers (B,C,W/C) (FIM): 6 Toilet/Commode Transfer(FIM): 6 Toilet/Commode Transfer (QC): 6 Tub Transfer(FIM): 4 Shower Transfer(FIM): 6 Additional Goals: 1-Demonstrate ADL Tasks, 2-Verbalize Understanding, 3- ImproveStrength/Yimi 1=Demonstrate adherence to instructed precautions during ADL tasks. 2=Patient will verbalize/demonstrate understanding of assistive devices/ modifications for ADL. 3=Patient will improve strength/tolerance for activity to enable patient to perform ADL's. TEA RODRIGUEZ PT Jul 11, 2018 12:41
--- NOTE | 2018-07-11 13:43 | Therapy Team Discharge Summary ---
Therapy Discharge Summary Discharge Recommendations Date of Discharge 07/11/18 Therapy D/C Recommendations: Home Independently Occupational Therapy OT has focused on increasing independence with ADLs/ functional transfers, UE strengthening, Home exercise program activity tolerance/ endurance, AE/ DME education, standing balance/tolerance, and safety education. pt has made great progress while in inpatient rehab. pt is currently function at MOD I/ I level. recommended devices: sock aid, lead coater, toilet aid, long handed sponge, and rollator when preforming functional mobility. shower chair is also, and necessary equipment for shower secondary to energy conservation. pt is safe to return home alone at this time. Decreased Activ Tolerance, Impaired Self-Care Skills PT Computer Systems Consultant Goals Computer Systems Consultant Goals PT Jail Goals Time Frame: Jul 19, 2018 Transfers (B,C,W/C) (FIM): 6 (met) Roll Left to Right (QC): 6 Sit to Lying (QC): 6 Lying-Sitting on Side/Bed(QC): 6 Sit to Stand (QC): 6 Chair/Mcx-mj-Qyksl Xfer(QC): 6 Car Transfer (QC): 6 Does the Patient Walk: Yes Gait (FIM): 2 (mdt) Gait distance (FIM): 7=943-94 ft Distance: 100' Walk 10 feet (QC): 6 Walk 10ft-Uneven Surface(QC): 6 Walk 50ft with 2 Turns (QC): 6 Walk 150 ft (QC): 9 Gait Level of Assist: 6 Gait Assistive Device: FWW # of Steps: 1 1 Step (curb) (QC): 5 4 Steps (QC): 9 12 Steps (QC): 9 Stairs Level Of Assist: 5 Picking up an Object (QC): 5 OT Jail Goals Computer Systems Consultant Goals Time Frame: July 25, 2018 Eating (FIM): 6 Eating (QC): 6 Oral Hygiene (QC): 6 Grooming(FIM): 6 Bathing(FIM): 6 Bathing Location: L Arm, R Arm, L Upper Leg, R Upper Leg, L Lower Leg ( including foot), R Lower Leg (including foot), Chest, Abdomen, Buttocks, Perineal Area Shower/Bathe Self (QC): 6 Upper Body Dressing(FIM): 6 Upper Body Dressing (QC): 6 Lower Body Dressing(FIM): 6 Lower Body Dressing (QC): 6 On/Off Footwear (QC): 6 Toileting(FIM): 6 Toileting Hygiene (QC): 6 Transfers (B,C,W/C) (FIM): 6 Toilet/Commode Transfer(FIM): 6 Toilet/Commode Transfer (QC): 6 Tub Transfer(FIM): 4 Shower Transfer(FIM): 6 Additional Goals: 1-Demonstrate ADL Tasks, 2-Verbalize Understanding, 3- ImproveStrength/Yimi 1=Demonstrate adherence to instructed precautions during ADL tasks. 2=Patient will verbalize/demonstrate understanding of assistive devices/ modifications for ADL. 3=Patient will improve strength/tolerance for activity to enable patient to perform ADL's. all goals met LILIYA GUTIÉRREZ OT Jul 11, 2018 13:43
[2018-07-11 14:30] VITALS: BP 118/69
== END 2018-07-11 14:40 | disposition home health service (06) | DRG 872 ==
PROVIDERS: ADMIT Internal Medicine; ATTEND Internal Medicine
PROC: 02HV33Z Insertion of Infusion Device into Superior Vena Cava, Percutaneous Approach (ICD-10-PCS; principal; 2018-07-10)
PROC: 0JH60XZ Insertion of Tunneled Vascular Access Device into Chest Subcutaneous Tissue and Fascia, Open Approach (ICD-10-PCS; 2018-07-10)
DX: A40.0 Sepsis due to streptococcus, group A (principal); M81.0 Age-related osteoporosis without current pathological fracture; L03.115 Cellulitis of right lower limb; I87.2 Venous insufficiency (chronic) (peripheral); E11.622 Type 2 diabetes mellitus with other skin ulcer; E11.40 Type 2 diabetes mellitus with diabetic neuropathy, unspecified; J45.909 Unspecified asthma, uncomplicated; E66.01 Morbid (severe) obesity due to excess calories; Z68.43 Body mass index [BMI] 50.0-59.9, adult; G47.33 Obstructive sleep apnea (adult) (pediatric); I48.91 Unspecified atrial fibrillation; R32 Unspecified urinary incontinence; I89.0 Lymphedema, not elsewhere classified; I12.9 Hypertensive chronic kidney disease with stage 1 through stage 4 chronic kidney disease, or unspecified chronic kidney disease; N18.3 Chronic kidney disease, stage 3 (moderate); K44.9 Diaphragmatic hernia without obstruction or gangrene; E78.00 Pure hypercholesterolemia, unspecified; D63.1 Anemia in chronic kidney disease; Z79.4 Long term (current) use of insulin
CPT/HCPCS: 36415; 80053; 82728; 82962; 83540; 85025; 85045; 87081; 94640; 94760

== ENCOUNTER → 2018-07-10 | Day surgery (SDC) | payer MEDICARE ==
[~2018-07-10] MED LIST changes: +0.9% SODIUM CHLORIDE PF INJ 20 ML VIAL ONE; +BUP/EPI 0.5% 1:200,000 (SENSORCAINE) 30 ML VIAL ONE; +CLINDAMYCIN 600 MG/4ML (CLEOCIN) VIAL ONE; +HEParin (CENTRAL IV FLUSH) 500 UNIT/5 ML SYR ONE; +LACTATED RINGERS 1,000 ML IV SCH; +LIDOCAINE 1% INJ 20 ML 20 ML VIAL ONE; +MIDAZOLAM 2 MG/2 ML (VERSED) VIAL ONE; +PROPOFOL INJECTION 50 ML IV ONE; +proPOfol 200 MG/20 ML (DIPRIVAN) VIAL IV ONE
--- NOTE | 2018-07-10 13:29 | Progress Note-Pre Operative ---
Pre-Operative Progress Note H&P Reviewed The H&P was reviewed, patient examined and no changes noted. Date Seen by Provider: Jul 10, 2018 Time Seen by Provider: 13:28 Date H&P Reviewed: Jul 10, 2018 Time H&P Reviewed: 13:28 Pre-Operative Diagnosis: poor venous access GURDEEP FORD DO Jul 10, 2018 13:29
[2018-07-10 14:45] VITALS: BP 134/64
--- NOTE | 2018-07-10 14:50 | Diagnostic Imaging Report ---
CLINICAL INDICATION: Patient with post op right chest port placement. Exam: Portable chest x-ray upright view. Comparisons: Chest x-ray dated 06/23/2018. Findings: Stable cardiomegaly with slight progression of mild pulmonary vascular congestion. There is no pleural effusion or pneumothorax. There is interval placement of Wbjyuz-v-Uzxe overlying the right chest with tip in the proximal superior vena cava region. There are degenerative spurs involving the thoracic spine. IMPRESSION: 1: Interval placement of Tuoxeg-b-Ekwb overlying the right chest with tip in the proximal superior vena cava. There is no pneumothorax. 2: Again seen cardiomegaly with progression of pulmonary vascular congestion. Dictated by: Dictated on workstation # [id number]
--- NOTE | 2018-07-10 19:16 | Diagnostic Imaging Report ---
INDICATION: Fluoroscopy for power port insertion. EXAMINATION: Fluoroscopy was provided for Dr. Marcos during a power port insertion. 20 seconds of fluoroscopy was utilized. FINDINGS: Right-sided port appears to have the tip overlying the SVC. IMPRESSION: Fluoroscopy during power port insertion. Dictated by: Dictated on workstation # [id number]
--- NOTE | 2018-07-11 06:49 | Anesthesia-General Post-Op ---
MAC Patient Condition Mental Status/LOC: Same as Preop Cardiovascular: Satisfactory Nausea/Vomiting: Absent Respiratory: Satisfactory Pain: Controlled Complications: Absent Post Op Complications Complications None Follow Up Care/Instructions Patient Instructions None needed. Anesthesiology Discharge Order Discharge Order Patient is doing well, no complaints, stable vital signs, no apparent adverse anesthesia problems. No complications reported per nursing. ALEIDA CORDERO CRNA Jul 11, 2018 06:49
== END ==
LOC: SDC 12:14
PROVIDERS: ATTEND Surgery
DX: I87.2 Venous insufficiency (chronic) (peripheral) (principal); D63.1 Anemia in chronic kidney disease; N18.3 Chronic kidney disease, stage 3 (moderate); R53.81 Other malaise; Z79.899 Other long term (current) drug therapy
CPT/HCPCS: 71045

== ENCOUNTER → 2018-07-14 | Outpatient (CLI) | payer MEDICARE ==
[~2018-07-14] MED LIST changes: -0.9% SODIUM CHLORIDE PF INJ 20 ML VIAL ONE; -BUP/EPI 0.5% 1:200,000 (SENSORCAINE) 30 ML VIAL ONE; -CLINDAMYCIN 600 MG/4ML (CLEOCIN) VIAL ONE; -HEParin (CENTRAL IV FLUSH) 500 UNIT/5 ML SYR ONE; -LACTATED RINGERS 1,000 ML IV SCH; -LIDOCAINE 1% INJ 20 ML 20 ML VIAL ONE; -MIDAZOLAM 2 MG/2 ML (VERSED) VIAL ONE; -PROPOFOL INJECTION 50 ML IV ONE; -proPOfol 200 MG/20 ML (DIPRIVAN) VIAL IV ONE
[2018-07-14 16:28] LABS: BASOPHILS % (AUTO) 0 % (0-10); EOSINOPHILS # (AUTO) 0.2 10^3/uL (0.0-0.3); EOSINOPHILS % (AUTO) 3 % (0-10); HEMATOCRIT 35 % (35-52); HEMOGLOBIN 10.7 G/DL (11.5-16.0); LYMPHOCYTES # (AUTO) 0.9 X 10^3 (1.0-4.0); LYMPHOCYTES % (AUTO) 16 % (12-44); MEAN CORPUSCULAR HEMOGLOBIN 29 PG (25-34); MEAN CORPUSCULAR HGB CONC 31 G/DL (32-36); MEAN CORPUSCULAR VOLUME 94 FL (80-99); MONOCYTES # (AUTO) 0.4 X 10^3 (0.0-1.0); MONOCYTES % (AUTO) 7 % (0-12); NEUTROPHILS # (AUTO) 3.9 X 10^3 (1.8-7.8); NEUTROPHILS % (AUTO) 73 % (42-75); PLATELET COUNT 318 10^3/uL (130-400); RED CELL DISTRIBUTION WIDTH 14.7 % (10.0-14.5); WHITE BLOOD COUNT 5.4 10^3/uL (4.3-11.0)
[2018-07-14 16:49] LABS: CALCIUM 9.4 MG/DL (8.5-10.1); CREATININE SERUM 1.41 MG/DL (0.60-1.30); POTASSIUM 4.1 MMOL/L (3.6-5.0)
[2018-07-14 16:50] LABS: BILIRUBIN,TOTAL 0.5 MG/DL (0.1-1.0); TOTAL PROTEIN 8.2 GM/DL (6.4-8.2)
== END ==
LOC: LABNPT 16:16
PROVIDERS: ATTEND Internal Medicine Hematology & Oncology
DX: D64.9 Anemia, unspecified (principal)
CPT/HCPCS: 80053; 85025

== ENCOUNTER → 2018-07-17 | Outpatient (CLI) | payer MEDICARE | LOC: WOUNDCARE 11:03 | PROVIDERS: ATTEND Nurse Practitioner | DX: E11.622 Type 2 diabetes mellitus with other skin ulcer (principal); L97.212 Non-pressure chronic ulcer of right calf with fat layer exposed; I87.331 Chronic venous hypertension (idiopathic) with ulcer and inflammation of right lower extremity; E66.01 Morbid (severe) obesity due to excess calories | CPT/HCPCS: 99213 ==

== ENCOUNTER → 2018-07-24 | Outpatient (CLI) | payer MEDICARE | LOC: WOUNDCARE 11:02 | PROVIDERS: ATTEND Nurse Practitioner | DX: E11.622 Type 2 diabetes mellitus with other skin ulcer (principal); L97.212 Non-pressure chronic ulcer of right calf with fat layer exposed; I87.331 Chronic venous hypertension (idiopathic) with ulcer and inflammation of right lower extremity; E66.01 Morbid (severe) obesity due to excess calories | CPT/HCPCS: 11042; 87070; 87075; 87077; 87181; 87186; 87205 ==

== ENCOUNTER → 2018-07-31 | Outpatient (CLI) | payer MEDICARE | LOC: WOUNDCARE 11:01 | PROVIDERS: ATTEND Nurse Practitioner | DX: E11.622 Type 2 diabetes mellitus with other skin ulcer (principal); L97.212 Non-pressure chronic ulcer of right calf with fat layer exposed; I87.331 Chronic venous hypertension (idiopathic) with ulcer and inflammation of right lower extremity; E66.01 Morbid (severe) obesity due to excess calories | CPT/HCPCS: 11042 ==

== ENCOUNTER → 2018-08-06 | Outpatient (CLI) | payer MEDICARE | LOC: LAB 13:47 | PROVIDERS: ATTEND Internal Medicine | DX: Z53.9 Procedure and treatment not carried out, unspecified reason (principal) ==

== ENCOUNTER → 2018-08-07 | Outpatient (CLI) | payer MEDICARE | LOC: WOUNDCARE 10:57 | PROVIDERS: ATTEND Nurse Practitioner | DX: E11.622 Type 2 diabetes mellitus with other skin ulcer (principal); L97.212 Non-pressure chronic ulcer of right calf with fat layer exposed; I87.331 Chronic venous hypertension (idiopathic) with ulcer and inflammation of right lower extremity; E66.01 Morbid (severe) obesity due to excess calories | CPT/HCPCS: 11042 ==

== ENCOUNTER → 2018-08-14 | Outpatient (CLI) | payer MEDICARE | LOC: WOUNDCARE 11:02 | PROVIDERS: ATTEND Nurse Practitioner | DX: E11.622 Type 2 diabetes mellitus with other skin ulcer (principal); L97.212 Non-pressure chronic ulcer of right calf with fat layer exposed; I87.331 Chronic venous hypertension (idiopathic) with ulcer and inflammation of right lower extremity; E66.01 Morbid (severe) obesity due to excess calories | CPT/HCPCS: 99213 ==

== ENCOUNTER → 2018-08-20 | Outpatient (CLI) | payer MEDICARE | LOC: LAB 10:44 | PROVIDERS: ATTEND Internal Medicine | DX: E11.65 Type 2 diabetes mellitus with hyperglycemia (principal) | CPT/HCPCS: 36415; 83036 ==

== ENCOUNTER → 2018-08-21 | Outpatient (CLI) | payer MEDICARE | LOC: WOUNDCARE 11:00 | PROVIDERS: ATTEND Nurse Practitioner | DX: E11.622 Type 2 diabetes mellitus with other skin ulcer (principal); L97.212 Non-pressure chronic ulcer of right calf with fat layer exposed; I87.331 Chronic venous hypertension (idiopathic) with ulcer and inflammation of right lower extremity; E66.01 Morbid (severe) obesity due to excess calories | CPT/HCPCS: 17250 ==

== ENCOUNTER → 2018-08-28 | Outpatient (CLI) | payer MEDICARE | LOC: WOUNDCARE 10:59 | PROVIDERS: ATTEND Nurse Practitioner | DX: E11.622 Type 2 diabetes mellitus with other skin ulcer (principal); L97.212 Non-pressure chronic ulcer of right calf with fat layer exposed; I87.331 Chronic venous hypertension (idiopathic) with ulcer and inflammation of right lower extremity; E66.01 Morbid (severe) obesity due to excess calories | CPT/HCPCS: 87070; 87075; 87077; 87186; 87205; 99213 ==

== ENCOUNTER → 2018-09-04 | Outpatient (CLI) | payer MEDICARE | LOC: WOUNDCARE 10:55 | PROVIDERS: ATTEND Nurse Practitioner | DX: E11.622 Type 2 diabetes mellitus with other skin ulcer (principal); L97.212 Non-pressure chronic ulcer of right calf with fat layer exposed; I87.331 Chronic venous hypertension (idiopathic) with ulcer and inflammation of right lower extremity; E66.01 Morbid (severe) obesity due to excess calories | CPT/HCPCS: 99213 ==

== ENCOUNTER → 2018-09-18 | Outpatient (CLI) | payer MEDICARE | LOC: WOUNDCARE 10:56 | PROVIDERS: ATTEND Nurse Practitioner | DX: E11.622 Type 2 diabetes mellitus with other skin ulcer (principal); L97.212 Non-pressure chronic ulcer of right calf with fat layer exposed; I87.331 Chronic venous hypertension (idiopathic) with ulcer and inflammation of right lower extremity; E66.01 Morbid (severe) obesity due to excess calories | CPT/HCPCS: 99213 ==

== ENCOUNTER 2018-10-02 12:58 | Outpatient (RCR) | payer MEDICARE | END 2018-11-11 12:39 | disposition home or self-care (01) | PROVIDERS: ATTEND Nurse Practitioner | DX: I89.0 Lymphedema, not elsewhere classified (principal) ==

== ENCOUNTER → 2018-10-02 | Outpatient (CLI) | payer MEDICARE | LOC: WOUNDCARE 11:01 | PROVIDERS: ATTEND Nurse Practitioner | DX: E11.52 Type 2 diabetes mellitus with diabetic peripheral angiopathy with gangrene (principal); E11.622 Type 2 diabetes mellitus with other skin ulcer; I96 Gangrene, not elsewhere classified; L97.212 Non-pressure chronic ulcer of right calf with fat layer exposed; E66.01 Morbid (severe) obesity due to excess calories | CPT/HCPCS: 99213 ==

== ENCOUNTER → 2018-10-09 | Outpatient (CLI) | payer MEDICARE | LOC: WOUNDCARE 11:00 | PROVIDERS: ATTEND Nurse Practitioner | DX: L97.212 Non-pressure chronic ulcer of right calf with fat layer exposed (principal); I87.331 Chronic venous hypertension (idiopathic) with ulcer and inflammation of right lower extremity; E11.622 Type 2 diabetes mellitus with other skin ulcer; E66.01 Morbid (severe) obesity due to excess calories; I96 Gangrene, not elsewhere classified | CPT/HCPCS: 87070; 87075; 87077; 87101; 87106; 87186; 87205; 99213 ==

== ENCOUNTER → 2018-10-16 | Outpatient (CLI) | payer MEDICARE | LOC: WOUNDCARE 11:01 | PROVIDERS: ATTEND Nurse Practitioner | DX: E11.622 Type 2 diabetes mellitus with other skin ulcer (principal); E11.52 Type 2 diabetes mellitus with diabetic peripheral angiopathy with gangrene; L97.212 Non-pressure chronic ulcer of right calf with fat layer exposed; I87.331 Chronic venous hypertension (idiopathic) with ulcer and inflammation of right lower extremity; I96 Gangrene, not elsewhere classified; E66.01 Morbid (severe) obesity due to excess calories | CPT/HCPCS: 29581 ==

== ENCOUNTER → 2018-10-20 | Outpatient (CLI) | payer MEDICARE ==
[2018-10-20 10:45] LABS: CALCIUM 9.2 MG/DL (8.5-10.1); CREATININE SERUM 1.25 MG/DL (0.60-1.30); POTASSIUM 4.6 MMOL/L (3.6-5.0)
== END ==
LOC: LAB 10:17
PROVIDERS: ATTEND Nurse Practitioner
DX: N18.9 Chronic kidney disease, unspecified (principal)
CPT/HCPCS: 36415; 80048

== ENCOUNTER → 2018-10-20 | Outpatient (CLI) | payer MEDICARE | LOC: WOUNDCARE 10:27 | PROVIDERS: ATTEND Nurse Practitioner | DX: L97.212 Non-pressure chronic ulcer of right calf with fat layer exposed (principal); D64.9 Anemia, unspecified; J45.909 Unspecified asthma, uncomplicated; G47.33 Obstructive sleep apnea (adult) (pediatric); I95.9 Hypotension, unspecified; I73.9 Peripheral vascular disease, unspecified; E11.9 Type 2 diabetes mellitus without complications; M19.90 Unspecified osteoarthritis, unspecified site | CPT/HCPCS: 29581 ==

== ENCOUNTER → 2018-10-23 | Outpatient (CLI) | payer MEDICARE | LOC: WOUNDCARE 10:56 | PROVIDERS: ATTEND Surgery | DX: E11.52 Type 2 diabetes mellitus with diabetic peripheral angiopathy with gangrene (principal); E11.622 Type 2 diabetes mellitus with other skin ulcer; I96 Gangrene, not elsewhere classified; L97.212 Non-pressure chronic ulcer of right calf with fat layer exposed; E66.01 Morbid (severe) obesity due to excess calories; I87.331 Chronic venous hypertension (idiopathic) with ulcer and inflammation of right lower extremity | CPT/HCPCS: 29581 ==

== ENCOUNTER → 2018-10-29 | Outpatient (CLI) | payer MEDICARE ==
[2018-10-29 14:27] LABS: CREATININE SERUM 1.36 MG/DL (0.60-1.30)
== END ==
LOC: LAB 13:24
PROVIDERS: ATTEND Nurse Practitioner
DX: Z01.89 Encounter for other specified special examinations (principal)
CPT/HCPCS: 36415; 80048

== ENCOUNTER → 2018-10-30 | Outpatient (CLI) | payer MEDICARE | LOC: WOUNDCARE 10:56 | PROVIDERS: ATTEND Nurse Practitioner | DX: E11.622 Type 2 diabetes mellitus with other skin ulcer (principal); E11.52 Type 2 diabetes mellitus with diabetic peripheral angiopathy with gangrene; I87.331 Chronic venous hypertension (idiopathic) with ulcer and inflammation of right lower extremity; L97.212 Non-pressure chronic ulcer of right calf with fat layer exposed; I96 Gangrene, not elsewhere classified; E66.01 Morbid (severe) obesity due to excess calories | CPT/HCPCS: 29581 ==

== ENCOUNTER → 2018-11-06 | Outpatient (CLI) | payer MEDICARE | LOC: WOUNDCARE 10:59 | PROVIDERS: ATTEND Nurse Practitioner | DX: L97.212 Non-pressure chronic ulcer of right calf with fat layer exposed (principal); I87.331 Chronic venous hypertension (idiopathic) with ulcer and inflammation of right lower extremity; E11.622 Type 2 diabetes mellitus with other skin ulcer; E66.01 Morbid (severe) obesity due to excess calories; E11.52 Type 2 diabetes mellitus with diabetic peripheral angiopathy with gangrene; I96 Gangrene, not elsewhere classified | CPT/HCPCS: 29581 ==

== ENCOUNTER → 2018-11-13 | Outpatient (CLI) | payer MEDICARE | LOC: WOUNDCARE 10:49 | PROVIDERS: ATTEND Nurse Practitioner | DX: L97.212 Non-pressure chronic ulcer of right calf with fat layer exposed (principal); I87.331 Chronic venous hypertension (idiopathic) with ulcer and inflammation of right lower extremity; E11.622 Type 2 diabetes mellitus with other skin ulcer; E11.52 Type 2 diabetes mellitus with diabetic peripheral angiopathy with gangrene; I96 Gangrene, not elsewhere classified; E66.01 Morbid (severe) obesity due to excess calories | CPT/HCPCS: 29581 ==

== ENCOUNTER → 2018-11-20 | Outpatient (CLI) | payer MEDICARE | LOC: WOUNDCARE 11:02 | PROVIDERS: ATTEND Nurse Practitioner | DX: E11.622 Type 2 diabetes mellitus with other skin ulcer (principal); E11.52 Type 2 diabetes mellitus with diabetic peripheral angiopathy with gangrene; E66.01 Morbid (severe) obesity due to excess calories; I87.331 Chronic venous hypertension (idiopathic) with ulcer and inflammation of right lower extremity; L97.212 Non-pressure chronic ulcer of right calf with fat layer exposed; I96 Gangrene, not elsewhere classified | CPT/HCPCS: 29581 ==

== ENCOUNTER → 2018-11-27 | Outpatient (CLI) | payer MEDICARE | LOC: WOUNDCARE 10:54 | PROVIDERS: ATTEND Nurse Practitioner | DX: E11.622 Type 2 diabetes mellitus with other skin ulcer (principal); I87.331 Chronic venous hypertension (idiopathic) with ulcer and inflammation of right lower extremity; L97.212 Non-pressure chronic ulcer of right calf with fat layer exposed; I96 Gangrene, not elsewhere classified; E66.01 Morbid (severe) obesity due to excess calories | CPT/HCPCS: 11042; 87070; 87075; 87077; 87186; 87205 ==

== ENCOUNTER → 2018-12-04 | Outpatient (CLI) | payer MEDICARE | LOC: WOUNDCARE 11:03 | PROVIDERS: ATTEND Nurse Practitioner | DX: L97.212 Non-pressure chronic ulcer of right calf with fat layer exposed (principal); I87.331 Chronic venous hypertension (idiopathic) with ulcer and inflammation of right lower extremity; E11.622 Type 2 diabetes mellitus with other skin ulcer; E66.01 Morbid (severe) obesity due to excess calories; E11.52 Type 2 diabetes mellitus with diabetic peripheral angiopathy with gangrene; I96 Gangrene, not elsewhere classified | CPT/HCPCS: 11042 ==

== ENCOUNTER → 2018-12-11 | Outpatient (CLI) | payer MEDICARE | LOC: WOUNDCARE 10:17 | PROVIDERS: ATTEND Nurse Practitioner | DX: L97.212 Non-pressure chronic ulcer of right calf with fat layer exposed (principal); I87.331 Chronic venous hypertension (idiopathic) with ulcer and inflammation of right lower extremity; E11.622 Type 2 diabetes mellitus with other skin ulcer; E66.01 Morbid (severe) obesity due to excess calories; E11.52 Type 2 diabetes mellitus with diabetic peripheral angiopathy with gangrene | CPT/HCPCS: 17250; 29581 ==

== ENCOUNTER → 2018-12-18 | Outpatient (CLI) | payer MEDICARE | LOC: WOUNDCARE 10:51 | PROVIDERS: ATTEND Surgery | DX: L97.212 Non-pressure chronic ulcer of right calf with fat layer exposed (principal); I87.331 Chronic venous hypertension (idiopathic) with ulcer and inflammation of right lower extremity; E11.622 Type 2 diabetes mellitus with other skin ulcer; E11.52 Type 2 diabetes mellitus with diabetic peripheral angiopathy with gangrene; E66.01 Morbid (severe) obesity due to excess calories | CPT/HCPCS: 29581 ==

== ENCOUNTER → 2018-12-25 | Outpatient (CLI) | payer MEDICARE | LOC: WOUNDCARE 11:00 | PROVIDERS: ATTEND Nurse Practitioner | DX: L97.212 Non-pressure chronic ulcer of right calf with fat layer exposed (principal); I87.331 Chronic venous hypertension (idiopathic) with ulcer and inflammation of right lower extremity; E11.622 Type 2 diabetes mellitus with other skin ulcer; E66.01 Morbid (severe) obesity due to excess calories | CPT/HCPCS: 29581 ==

== ENCOUNTER → 2019-01-01 | Outpatient (CLI) | payer MEDICARE | LOC: WOUNDCARE 10:59 | PROVIDERS: ATTEND Nurse Practitioner | DX: E11.622 Type 2 diabetes mellitus with other skin ulcer (principal); E11.52 Type 2 diabetes mellitus with diabetic peripheral angiopathy with gangrene; L97.212 Non-pressure chronic ulcer of right calf with fat layer exposed; E66.01 Morbid (severe) obesity due to excess calories; I96 Gangrene, not elsewhere classified; I87.331 Chronic venous hypertension (idiopathic) with ulcer and inflammation of right lower extremity | CPT/HCPCS: 29581 ==

== ENCOUNTER 2019-01-07 12:57 | Outpatient (RCR) | payer MEDICARE ==
[2018-10-29 14:10] LABS: BASOPHILS % (AUTO) 1 % (0-10); EOSINOPHILS # (AUTO) 0.2 10^3/uL (0.0-0.3); EOSINOPHILS % (AUTO) 4 % (0-10); HEMATOCRIT 36 % (35-52); HEMOGLOBIN 11.2 G/DL (11.5-16.0); LYMPHOCYTES # (AUTO) 0.7 X 10^3 (1.0-4.0); LYMPHOCYTES % (AUTO) 15 % (12-44); MEAN CORPUSCULAR HEMOGLOBIN 30 PG (25-34); MEAN CORPUSCULAR HGB CONC 31 G/DL (32-36); MEAN CORPUSCULAR VOLUME 97 FL (80-99); MEAN PLATELET VOLUME 8.7 FL (7.4-10.4); MONOCYTES # (AUTO) 0.4 X 10^3 (0.0-1.0); MONOCYTES % (AUTO) 9 % (0-12); NEUTROPHILS # (AUTO) 3.1 X 10^3 (1.8-7.8); NEUTROPHILS % (AUTO) 71 % (42-75); PLATELET COUNT 190 10^3/uL (130-400); RED CELL DISTRIBUTION WIDTH 14.3 % (10.0-14.5); WHITE BLOOD COUNT 4.4 10^3/uL (4.3-11.0)
[2018-11-12 11:18] LABS: BASOPHILS % (AUTO) 0 % (0-10); EOSINOPHILS # (AUTO) 0.2 10^3/uL (0.0-0.3); EOSINOPHILS % (AUTO) 3 % (0-10); HEMATOCRIT 34 % (35-52); HEMOGLOBIN 10.8 G/DL (11.5-16.0); LYMPHOCYTES # (AUTO) 0.9 X 10^3 (1.0-4.0); LYMPHOCYTES % (AUTO) 19 % (12-44); MEAN CORPUSCULAR HEMOGLOBIN 30 PG (25-34); MEAN CORPUSCULAR HGB CONC 31 G/DL (32-36); MEAN CORPUSCULAR VOLUME 95 FL (80-99); MEAN PLATELET VOLUME 8.3 FL (7.4-10.4); MONOCYTES # (AUTO) 0.4 X 10^3 (0.0-1.0); MONOCYTES % (AUTO) 9 % (0-12); NEUTROPHILS # (AUTO) 3.3 X 10^3 (1.8-7.8); NEUTROPHILS % (AUTO) 69 % (42-75); PLATELET COUNT 203 10^3/uL (130-400); RED CELL DISTRIBUTION WIDTH 13.5 % (10.0-14.5); WHITE BLOOD COUNT 4.8 10^3/uL (4.3-11.0)
[2018-11-12 11:46] LABS: ALBUMIN 3.8 GM/DL (3.2-4.5); BILIRUBIN,TOTAL 0.6 MG/DL (0.1-1.0); CALCIUM 8.7 MG/DL (8.5-10.1); CREATININE SERUM 1.29 MG/DL (0.60-1.30); TOTAL PROTEIN 7.1 GM/DL (6.4-8.2)
[2018-11-26 13:54] LABS: BASOPHILS % (AUTO) 0 % (0-10); EOSINOPHILS # (AUTO) 0.1 10^3/uL (0.0-0.3); EOSINOPHILS % (AUTO) 2 % (0-10); HEMATOCRIT 34 % (35-52); HEMOGLOBIN 10.8 G/DL (11.5-16.0); LYMPHOCYTES # (AUTO) 1.1 X 10^3 (1.0-4.0); LYMPHOCYTES % (AUTO) 23 % (12-44); MEAN CORPUSCULAR HEMOGLOBIN 30 PG (25-34); MEAN CORPUSCULAR HGB CONC 31 G/DL (32-36); MEAN CORPUSCULAR VOLUME 97 FL (80-99); MEAN PLATELET VOLUME 8.3 FL (7.4-10.4); MONOCYTES # (AUTO) 0.4 X 10^3 (0.0-1.0); MONOCYTES % (AUTO) 9 % (0-12); NEUTROPHILS # (AUTO) 3.2 X 10^3 (1.8-7.8); NEUTROPHILS % (AUTO) 66 % (42-75); PLATELET COUNT 177 10^3/uL (130-400); WHITE BLOOD COUNT 4.8 10^3/uL (4.3-11.0)
[2018-12-10 13:48] LABS: BASOPHILS % (AUTO) 0 % (0-10); EOSINOPHILS # (AUTO) 0.1 10^3/uL (0.0-0.3); EOSINOPHILS % (AUTO) 1 % (0-10); HEMATOCRIT 39 % (35-52); HEMOGLOBIN 12.1 G/DL (11.5-16.0); LYMPHOCYTES % (AUTO) 16 % (12-44); MEAN CORPUSCULAR HEMOGLOBIN 30 PG (25-34); MEAN CORPUSCULAR HGB CONC 31 G/DL (32-36); MEAN CORPUSCULAR VOLUME 97 FL (80-99); MEAN PLATELET VOLUME 8.9 FL (7.4-10.4); MONOCYTES # (AUTO) 0.6 X 10^3 (0.0-1.0); MONOCYTES % (AUTO) 10 % (0-12); NEUTROPHILS # (AUTO) 4.3 X 10^3 (1.8-7.8); NEUTROPHILS % (AUTO) 73 % (42-75); PLATELET COUNT 180 10^3/uL (130-400); RED CELL DISTRIBUTION WIDTH 14.1 % (10.0-14.5); WHITE BLOOD COUNT 5.9 10^3/uL (4.3-11.0)
[2018-12-24 13:50] LABS: BASOPHILS % (AUTO) 0 % (0-10); EOSINOPHILS # (AUTO) 0.1 10^3/uL (0.0-0.3); EOSINOPHILS % (AUTO) 2 % (0-10); HEMATOCRIT 36 % (35-52); HEMOGLOBIN 11.3 G/DL (11.5-16.0); LYMPHOCYTES # (AUTO) 0.9 X 10^3 (1.0-4.0); LYMPHOCYTES % (AUTO) 18 % (12-44); MEAN CORPUSCULAR HGB CONC 32 G/DL (32-36); MEAN CORPUSCULAR VOLUME 96 FL (80-99); MEAN PLATELET VOLUME 8.5 FL (7.4-10.4); MONOCYTES # (AUTO) 0.5 X 10^3 (0.0-1.0); MONOCYTES % (AUTO) 9 % (0-12); NEUTROPHILS # (AUTO) 3.7 X 10^3 (1.8-7.8); NEUTROPHILS % (AUTO) 71 % (42-75); PLATELET COUNT 156 10^3/uL (130-400); RED CELL DISTRIBUTION WIDTH 13.5 % (10.0-14.5); WHITE BLOOD COUNT 5.3 10^3/uL (4.3-11.0)
[2018-12-24 13:54] LABS: MEAN CORPUSCULAR HEMOGLOBIN 30 PG (25-34)
[~2019-01-07 12:57] MED LIST changes: +DARBEPOETIN 40 MCG/ML (ARANESP) 1 ML VIAL SC SCH
[2019-01-07 13:29] LABS: BASOPHILS % (AUTO) 0 % (0-10); EOSINOPHILS # (AUTO) 0.1 10^3/uL (0.0-0.3); EOSINOPHILS % (AUTO) 1 % (0-10); HEMATOCRIT 34 % (35-52); HEMOGLOBIN 10.9 G/DL (11.5-16.0); LYMPHOCYTES # (AUTO) 0.8 X 10^3 (1.0-4.0); LYMPHOCYTES % (AUTO) 17 % (12-44); MEAN CORPUSCULAR HEMOGLOBIN 31 PG (25-34); MEAN CORPUSCULAR HGB CONC 32 G/DL (32-36); MEAN CORPUSCULAR VOLUME 96 FL (80-99); MEAN PLATELET VOLUME 8.6 FL (7.4-10.4); MONOCYTES # (AUTO) 0.6 X 10^3 (0.0-1.0); MONOCYTES % (AUTO) 12 % (0-12); NEUTROPHILS # (AUTO) 3.4 X 10^3 (1.8-7.8); NEUTROPHILS % (AUTO) 70 % (42-75); PLATELET COUNT 185 10^3/uL (130-400); RED CELL DISTRIBUTION WIDTH 13.7 % (10.0-14.5); WHITE BLOOD COUNT 4.8 10^3/uL (4.3-11.0)
[2019-01-07 13:48] LABS: ALBUMIN 3.9 GM/DL (3.2-4.5); BILIRUBIN,TOTAL 0.4 MG/DL (0.1-1.0); CREATININE SERUM 1.24 MG/DL (0.60-1.30); POTASSIUM 4.7 MMOL/L (3.6-5.0); TOTAL PROTEIN 6.9 GM/DL (6.4-8.2)
[2019-01-07] MEDS ORDERED: DARBEPOETIN 40 MCG/ML (ARANESP) 1 ML VIAL SC SCH (14:45)
[2019-01-22] MEDS ORDERED: DIPH25CA79 PO (14:36)
[2019-01-25] MEDS ORDERED: LEVO750T9 PO (12:02)
== END 2019-01-27 | disposition home or self-care (01) ==
LOC: ONC 12:57
PROVIDERS: ATTEND Internal Medicine Hematology & Oncology
DX: D50.9 Iron deficiency anemia, unspecified (principal); D63.1 Anemia in chronic kidney disease; N18.3 Chronic kidney disease, stage 3 (moderate); Z85.820 Personal history of malignant melanoma of skin; I10 Essential (primary) hypertension; E78.2 Mixed hyperlipidemia; Z82.49 Family history of ischemic heart disease and other diseases of the circulatory system; Z79.84 Long term (current) use of oral hypoglycemic drugs; Z79.899 Other long term (current) drug therapy; E11.622 Type 2 diabetes mellitus with other skin ulcer; I87.331 Chronic venous hypertension (idiopathic) with ulcer and inflammation of right lower extremity; L97.212 Non-pressure chronic ulcer of right calf with fat layer exposed; E66.01 Morbid (severe) obesity due to excess calories; Z68.43 Body mass index [BMI] 50.0-59.9, adult
CPT/HCPCS: 36415; 36591; 80053; 82728; 85025; 96372

== ENCOUNTER → 2019-01-07 | Outpatient (CLI) | payer MEDICARE ==
[2019-01-07 14:00] LABS: CHOLESTEROL 135 MG/DL (< 200); HDL CHOLESTEROL 48 MG/DL (40-60); TRIGLYCERIDES 102 MG/DL (<150); VLDL CHOLESTEROL 20 MG/DL (5-40)
== END ==
LOC: LAB 13:15
PROVIDERS: ATTEND Internal Medicine
DX: Z01.89 Encounter for other specified special examinations (principal)
CPT/HCPCS: 36415; 80061; 83036

== ENCOUNTER → 2019-01-08 | Outpatient (CLI) | payer MEDICARE ==
[~2019-01-08] MED LIST changes: -DARBEPOETIN 40 MCG/ML (ARANESP) 1 ML VIAL SC SCH
== END ==
LOC: WOUNDCARE 10:57
PROVIDERS: ATTEND Nurse Practitioner
DX: E11.622 Type 2 diabetes mellitus with other skin ulcer (principal); E11.52 Type 2 diabetes mellitus with diabetic peripheral angiopathy with gangrene; L97.212 Non-pressure chronic ulcer of right calf with fat layer exposed; I87.331 Chronic venous hypertension (idiopathic) with ulcer and inflammation of right lower extremity; E66.01 Morbid (severe) obesity due to excess calories; I96 Gangrene, not elsewhere classified
CPT/HCPCS: 29581

== ENCOUNTER → 2019-01-15 | Outpatient (CLI) | payer MEDICARE | LOC: WOUNDCARE 10:50 | PROVIDERS: ATTEND Nurse Practitioner | DX: L97.212 Non-pressure chronic ulcer of right calf with fat layer exposed (principal); I87.331 Chronic venous hypertension (idiopathic) with ulcer and inflammation of right lower extremity; E11.622 Type 2 diabetes mellitus with other skin ulcer; E66.01 Morbid (severe) obesity due to excess calories; E11.52 Type 2 diabetes mellitus with diabetic peripheral angiopathy with gangrene | CPT/HCPCS: 29581 ==

== ENCOUNTER 2019-01-22 12:13 | Inpatient (IN) | payer MEDICARE ==
[~2019-01-22] VITALS: Ht 162.6 cm; Wt 140.1 kg
[~2019-01-22 12:13] MED LIST changes: -DIPH25CA79 PO; -LEVO750T9 PO
--- NOTE | 2019-01-22 12:45 | NUR ---
ARNOL DIAZ admitted to room 424-1, with an admitting diagnosis of CELLULITIS OF RIGHT LOWER LEG, on 01/22/19 from WOUND CARE via W/C, accompanied by STAFF.ARNOL DIAZ introduced to surroundings, call light, bed controls, phone, TV, temperature control, lights, meal times, smoking policy, visitor policy, side rail policy, bathrooms and showers. Patient Rights given to patient in the handbook.ARNOL DIAZ verbalizes understanding that [facility] is not responsible for the loss or damage to any personal effects or valuables that are kept in the patients posession during their hospitalization. The following Patient Care Plans were discussed with the PT: Discharge Planning, PAIN CONTROL,IV THERAPY, and TESTS AND PROCEDURES. ARNOL DIAZ verbalizes understanding of Interdisciplinary Patient Education. Patient and/or family were informed about the Rapid Response Team and its purpose.
[2019-01-22] MEDS ORDERED: LORATADINE (CLARITIN) 10 MG TAB PO PRN (14:30)
[2019-01-22] MEDS ORDERED: POLYETHYLENE GLYCOL 17 GM (MIRALAX) PACK PO PRN (14:30)
[2019-01-22] MEDS ORDERED: BISACODYL 10 MG SUPP (DULCOLAX) PR PRN (14:30)
[2019-01-22] MEDS ORDERED: MELATONIN 3 MG TABLET PO PRN (14:30)
[2019-01-22] MEDS ORDERED: diphenhydrAMINE 25 MG TAB (BENADRYL) PO PRN ×2 (14:30→15:30)
[2019-01-22] MEDS ORDERED: ONDANSETRON 4 MG (ZOFRAN) ORAL DISSOLVE TAB PO PRN (14:30)
[2019-01-22] MEDS ORDERED: DIPH25CA79 PO (14:36)
[2019-01-22 14:40] VITALS: BP 151/76
--- NOTE | 2019-01-22 14:45 | NUR ---
SPOKE WITH THE PATIENT ABOUT HER MEDICATIONS. WE WENT OVER THE EXT MED HX AND SHE VERIFIED WHAT SHE IS TAKING. SHE STATES SHE STILL TAKES FOLIC ACID, LASIX, AND POTASSIUM HOWEVER SHE HAS NOT FILLED THEM RECENTLY. SHE STATES SHE HAD FILLED THEM RIGHT BEFORE GOING TO [place] A FEW MONTHS SO SHE HAD A SUPPLY AT HOME AND HAS NOT REFILLED THEM YET. LAKISHA FILLED: 6--19 POTASSIUM 10MEQ #30 5-8-19 LASIX 40MG #60 (STATES SHE TAKES 1 AND 1/2 TAB DAILY) MAY FOLIC ACID 1MG #30 SHE ALSO STATES SHE GETS ARANESP AND THE DOSE AND FREQUENCY CHANGE BUT CURRENTLY SHE IS 30 EVERY 3 WEEKS. SHE ALSO REPORTS SHE HAS A VENTOLIN INHALER NEEDED. OTC MEDS: TYLENOL PRN VITAMIN C DAILY CALCIUM DAILY VITAMIN D DAILY B12 DAILY BENADRYL 2 QID MAGNESIUM 250MG HS
[2019-01-22 14:47] LABS: BASOPHILS % (AUTO) 0 % (0-10); EOSINOPHILS # (AUTO) 0.1 10^3/uL (0.0-0.3); EOSINOPHILS % (AUTO) 1 % (0-10); HEMATOCRIT 36 % (35-52); HEMOGLOBIN 11.5 G/DL (11.5-16.0); LYMPHOCYTES # (AUTO) 0.9 X 10^3 (1.0-4.0); LYMPHOCYTES % (AUTO) 15 % (12-44); MEAN CORPUSCULAR HEMOGLOBIN 31 PG (25-34); MEAN CORPUSCULAR HGB CONC 32 G/DL (32-36); MEAN CORPUSCULAR VOLUME 97 FL (80-99); MEAN PLATELET VOLUME 8.8 FL (7.4-10.4); MONOCYTES # (AUTO) 0.6 X 10^3 (0.0-1.0); MONOCYTES % (AUTO) 9 % (0-12); NEUTROPHILS # (AUTO) 4.7 X 10^3 (1.8-7.8); NEUTROPHILS % (AUTO) 75 % (42-75); PLATELET COUNT 167 10^3/uL (130-400); RED CELL DISTRIBUTION WIDTH 13.8 % (10.0-14.5); WHITE BLOOD COUNT 6.4 10^3/uL (4.3-11.0)
[2019-01-22 15:14] LABS: ALBUMIN 3.9 GM/DL (3.2-4.5); BILIRUBIN,TOTAL 0.7 MG/DL (0.1-1.0); CREATININE SERUM 1.02 MG/DL (0.60-1.30); MAGNESIUM 1.9 MG/DL (1.6-2.4); POTASSIUM 4.2 MMOL/L (3.6-5.0); TOTAL PROTEIN 6.9 GM/DL (6.4-8.2)
--- NOTE | 2019-01-22 16:07 | History & Physical-Hospitalist ---
History of Present Illness HPI/Chief Complaint Felipa Vasquez is a 73yoF with PMH HTN, T2DM, obesity, ADITI on CPAP, who presented from wound clinic with worsening right leg wound and cellulitis. She reports that the wound has been there for a very long time and she has been on and off antibiotics for it. She says over the past week the redness has increased. She reports that she is off antibiotics at this time. She had a culture done today. She denies fevers and chills. She denies chest pain and dyspnea. She denies abdominal pain, nausea, and vomiting. Source: patient Exam Limitations: no limitations Date Seen 01/22/19 Time Seen by a Provider: 13:00 Attending Physician Je Woodard MD PCP Liu Roblero MD Referring Physician Date of Admission Jan 22, 2019 at 12:45 Home Medications & Allergies Home Medications Reviewed patient Home Medication Reconciliation performed by pharmacy medication reconciliations in flight technician and/or nursing. Patients Allergies have been reviewed. Allergies Allergies Coded Allergies NSAIDS (Non-Steroidal Anti-Inflamma (Verified Allergy, Severe, BLOOD IN URINE, 06/23/18) celecoxib (Unverified Allergy, Severe, BLOOD IN URINE, 06/23/18) penicillin G (Verified Allergy, Unknown, HAS RECEIVED ANCEF W/O ISSUE, 10/13/15) Past Hnsfwoz-Esdxmt-Wxoiel Hx Past Med/Social Hx: Reviewed Nursing Past Med/Soc Hx Patient Social History 2nd Hand Smoke Exposure: No Recent Foreign Travel: No Contact w/other who traveled: No Recent Hopitalizations: Yes (REHAB) Recent Infectious Disease Expo: No Immunizations Up To Date Tetanus Booster (TDap): Unknown Date of Pneumonia Vaccine: Dec 23, 2012 Date of Influenza Vaccine: Jan 09, 2019 Seasonal Allergies Seasonal Allergies: No Past Medical History Respiratory: Asthma, Sleep Apnea Currently Using CPAP: Yes Currently Using BIPAP: No Cardiac: Atrial Fibrillation, High Cholesterol, Hypertension Sexually Transmitted Disease: No HIV/AIDS: No Female Reproductive Disorders: Denies Genitourinary: Bladder Infection Gastrointestinal: Hiatal Hernia Musculoskeletal: Arthritis Endocrine: Diabetes, Non-Insulin dep Hearing Impairment: Denies Cancer: Melanoma Did You Recieve Any Treatments: No History of Blood Disorders: No Adverse Reaction to Blood Hernández: No Family History Dementia 19 MOTHER Diabetes mellitus G8 SISTER Myocardial infarction 19 FATHER Neoplasm G8 SISTER No Pertinent Family Hx, Heart Disease a-fib in siblings Review of Systems Constitutional: no symptoms reported EENTM: no symptoms reported Respiratory: no symptoms reported Cardiovascular: no symptoms reported Gastrointestinal: no symptoms reported Genitourinary: no symptoms reported Musculoskeletal: no symptoms reported Skin: change in color, lesions, rash Psychiatric/Neurological: No Symptoms Reported Physical Exam Physical Exam Vital Signs Vital Signs - First Documented 01/22/19 14:40 Temp 36.2 Pulse 60 Resp 16 B/P (MAP) 151/76 Pulse Ox 97 Capillary Refill : Height, Weight, BMI Height: 5'4.00" Weight: 309lbs. 14.0oz. [id number]; 348.14 BMI Method:Stated General Appearance: No Apparent Distress, Obese HEENT: PERRL/EOMI, Pharynx Normal Neck: Normal Inspection, Supple Respiratory: Lungs Clear, Normal Breath Sounds, No Respiratory Distress Cardiovascular: Regular Rate, Rhythm, No Murmur Gastrointestinal: Normal Bowel Sounds, Non Tender, Soft Extremity: Non Tender, Inflammation, Swelling, Other (venous stasis dermatitis, right lower extremity skin exfoliation (appears like a burn) with lateral ulceration without drainage) Neurologic/Psychiatric: Alert, Oriented x3, No Motor/Sensory Deficits, Normal Mood/Affect Skin: Erythema, Rash Lymphatic: No Adenopathy Results Results/Procedures Labs Laboratory Tests 01/22/19 14:30 Patient resulted labs reviewed. Assessment/Plan Admission Diagnosis Cellulitis Admission Status: Observation Reason for Inpatient Admission: Cellulitis requiring IV antibiotics Assessment and Plan Cellulitis of right lower extremity Non-healing ulcer of right leg -Admit to med/surg -Obtain CBC/CMP/ESR/CRP -Begin Vancomycin and Cefepime -Consult wound care HTN Paroxysmal atrial fibrillation HLD -Continue home meds DVT Prophylaxis: already receiving therapeutic anticoagulation Diagnosis/Problems Diagnosis/Problems (1) Cellulitis of right lower extremity Status: Acute (2) Non-healing ulcer of right ankle Status: Chronic (3) Paroxysmal A-fib Status: Chronic (4) HLD (hyperlipidemia) Status: Chronic (5) Hypertension Status: Chronic Qualifiers: Hypertension type: essential hypertension Qualified Codes: I10 - Essential (primary) hypertension JE WOODARD MD Jan 22, 2019 16:07 POS
[2019-01-22] MEDS ORDERED: CEFEPIME INJECTION 1,000 MG in WATER (STERILE) FOR INJECTION 10 ML IV ONE (16:15)
[2019-01-22] MEDS ORDERED: VANCOMYCIN INJECTION 0.1 MG in NS (IVPB) 250 ML IV SCH (16:15)
--- NOTE | 2019-01-22 16:27 | NUR ---
CR 1.02; CR CL > 60; WT 142.6 KG; VANCO 2000 MG IV Q24H (FROM LAST ADMIT) ; TROUGH AFTER 3RD DOSE
[2019-01-22] MEDS: CEFEPIME 2,000 MG/SWFI 20 ML IV PUSH IV SCH ×2 (16:40)
[2019-01-22] MEDS: VANCOMYCIN 2000 MG/NS 500 ML IVPB IV SCH ×2 (16:41)
[2019-01-22] MEDS: ACETAMINOPHEN 500 MG TAB (TYLENOL) PO PRN (16:43)
--- NOTE | 2019-01-22 16:47 | Diagnostic Imaging Report ---
INDICATION: Painful wound. FINDINGS: There are soft tissue calcifications as well as vascular calcifications. There are profound degenerative changes tricompartmental at the knee. There is plantar calcaneal spurring and moderate arthritis at the ankle. No acute periosteal reaction. No soft tissue gas. No radiopaque foreign body. There is swelling about the knee diffusely. IMPRESSION: Profound degenerative changes to the knee where there is some soft tissue swelling. There are soft tissue and vascular calcifications in the lower leg. No acute-appearing bony abnormality, foreign body, or gas is identified. Dictated by: Dictated on workstation # [id number]
[2019-01-22 16:52] VITALS: BP 153/67
[2019-01-22] MEDS: APIXABAN 5 MG (ELIQUIS) TABLET PO SCH ×2 (17:42→21:11)
[2019-01-22] MEDS: AMIODARONE 200 MG (CORDARONE) TAB PO SCH (17:43)
[2019-01-22] MEDS: meTOproloL SUCCINATE 50 MG (TOPROL XL) TAB PO SCH (17:48)
[2019-01-22 19:39] VITALS: BP 134/60
[2019-01-22] MEDS ORDERED: RT-ADVAIR HFA 115/21 MCG PER PUFF IH SCH (20:00)
[2019-01-22] MEDS ORDERED: CEFEPIME INJECTION 500 MG in NS (IVPB) 50 ML IV SCH (21:00)
[2019-01-22] MEDS ORDERED: NON-FORMULARY MEDICATION 1 EA EA (Fluticasone/Salmeterol (Advair 250-50 Diskus) 1 PUFF) INH SCH (21:00)
[2019-01-22] MEDS ORDERED: APIXABAN 5 MG (ELIQUIS) TABLET PO SCH (21:00)
[2019-01-22] MEDS ORDERED: ENOXAPARIN 60 MG/0.6 ML (LOVENOX) SYR SC SCH (21:00)
[2019-01-22] MEDS: MONTELUKAST 10 MG (SINGULAIR) TAB PO SCH (21:10)
[2019-01-22] MEDS: SENNA W/DOCUSATE (SENOKOT S) TABLET PO SCH (21:11)
[2019-01-22 23:43] VITALS: BP 148/65
[2019-01-23] MEDS: CEFEPIME 2,000 MG/SWFI 20 ML IV PUSH IV SCH ×4 (04:32→15:32)
[2019-01-23 04:37] VITALS: BP 165/70
[2019-01-23] MEDS: ACETAMINOPHEN 500 MG TAB (TYLENOL) PO PRN (04:44)
[2019-01-23 04:50] LABS: BASOPHILS % (AUTO) 0 % (0-10); EOSINOPHILS # (AUTO) 0.1 10^3/uL (0.0-0.3); EOSINOPHILS % (AUTO) 2 % (0-10); HEMATOCRIT 37 % (35-52); HEMOGLOBIN 11.7 G/DL (11.5-16.0); LYMPHOCYTES # (AUTO) 0.9 X 10^3 (1.0-4.0); LYMPHOCYTES % (AUTO) 17 % (12-44); MEAN CORPUSCULAR HEMOGLOBIN 31 PG (25-34); MEAN CORPUSCULAR HGB CONC 32 G/DL (32-36); MEAN CORPUSCULAR VOLUME 97 FL (80-99); MEAN PLATELET VOLUME 9.1 FL (7.4-10.4); MONOCYTES # (AUTO) 0.6 X 10^3 (0.0-1.0); MONOCYTES % (AUTO) 11 % (0-12); NEUTROPHILS # (AUTO) 3.8 X 10^3 (1.8-7.8); NEUTROPHILS % (AUTO) 70 % (42-75); PLATELET COUNT 177 10^3/uL (130-400); RED CELL DISTRIBUTION WIDTH 13.9 % (10.0-14.5); WHITE BLOOD COUNT 5.4 10^3/uL (4.3-11.0)
[2019-01-23 05:09] LABS: CALCIUM 9.2 MG/DL (8.5-10.1); CREATININE SERUM 1.04 MG/DL (0.60-1.30); POTASSIUM 4.4 MMOL/L (3.6-5.0)
[2019-01-23 08:00] VITALS: BP 161/71
[2019-01-23] MEDS: FUROSEMIDE 40 MG (LASIX) TAB PO SCH (08:32)
[2019-01-23] MEDS: CALCIUM CARBONATE 600 MG (CALCARB) TAB PO SCH (08:32)
--- NOTE | 2019-01-23 08:53 | Wound Care Assessment ---
Wound Care Assessment Date Seen by Provider: Jan 23, 2019 Time Seen by Provider: 08:15 Chief Complaint Cellulitis R calf. HPI The patient is a 73 year old female with long-standing refractory venous insufficiency ulcer and acute deterioration of the wound appearance and marked increase in wound related pain. The wound is improved with bed rest and IV antibiotics. Arterial evaluation ordered to R/O new arterial blockage. Past Medical History: Admits Diabetes Type II, Admits Heart Disease (Atrial Fibrillation, hypertension, obesity, obstructive sleep apnea.) Recreational Drug Use: No Alcohol Use: Denies Use Review of Systems Pulmonary: No Dyspnea Cardiovascular: No: Chest Pain Musculoskeletal: leg pain Neurological: Weakness Exam Vital Signs Date Time Temp Pulse Resp B/P (MAP) Pulse Ox O2 Delivery O2 Flow Rate FiO2 01/23/19 04:37 37.0 58 18 165/70 (101) 94 Room Air Capillary Refill : General Appearance: no apparent distress HEENT: normal ENT inspection Cardiovascular: regular rate, rhythm, systolic murmur Respiratory: lungs clear Gastrointestinal: normal bowel sounds, non tender, soft Extremities: other (R calf ulcers x 2 each approximately 2 cm across. Surrounding tissue very red and excoriated. Improved from yesterday.) Results Laboratory Tests 01/22/19 14:30: White Blood Count 6.4, Red Blood Count 3.70L, Hemoglobin 11.5, Hematocrit 36, Mean Corpuscular Volume 97, Mean Corpuscular Hemoglobin 31, Mean Corpuscular Hemoglobin Concent 32, Red Cell Distribution Width 13.8, Platelet Count 167, Mean Platelet Volume 8.8, Neutrophils (%) (Auto) 75, Lymphocytes (%) (Auto) 15, Monocytes (%) (Auto) 9, Eosinophils (%) (Auto) 1, Basophils (%) (Auto) 0, Neutrophils # (Auto) 4.7, Lymphocytes # (Auto) 0.9L, Monocytes # (Auto) 0.6, Eosinophils # (Auto) 0.1, Basophils # (Auto) 0.0, Erythrocyte Sedimentation Rate 36H, Sodium Level 142, Potassium Level 4.2, Chloride Level 107, Carbon Dioxide Level 26, Anion Gap 9, Blood Urea Nitrogen 32H, Creatinine 1.02, Estimat Sherlyn merular Filtration Rate 53, BUN/Creatinine Ratio 31, Glucose Level 109H, Calcium Level 9.0, Corrected Calcium 9.1, Magnesium Level 1.9, Total Bilirubin 0.7, Aspartate Amino Transf (AST/SGOT) 21, Alanine Aminotransferase (ALT/SGPT) 23, Alkaline Phosphatase 82, C-Reactive Protein High Sensitivity 0.79H, Total Protein 6.9, Albumin 3.9 01/23/19 04:40: White Blood Count 5.4, Red Blood Count 3.82L, Hemoglobin 11.7, Hematocrit 37, Mean Corpuscular Volume 97, Mean Corpuscular Hemoglobin 31, Mean Corpuscular Hemoglobin Concent 32, Red Cell Distribution Width 13.9, Platelet Count 177, Mean Platelet Volume 9.1, Neutrophils (%) (Auto) 70, Lymphocytes (%) (Auto) 17, Monocytes (%) (Auto) 11, Eosinophils (%) (Auto) 2, Basophils (%) (Auto) 0, Neutrophils # (Auto) 3.8, Lymphocytes # (Auto) 0.9L, Monocytes # (Auto) 0.6, Eosinophils # (Auto) 0.1, Basophils # (Auto) 0.0, Sodium Level 141, Potassium Level 4.4, Chloride Level 107, Carbon Dioxide Level 25, Anion Gap 9, Blood Urea Nitrogen 28H, Creatinine 1.04, Estimat Glomerular Filtration Rate 52, BUN/Creatinine Ratio 27, Glucose Level 97, Calcium Level 9.2 Assessment/Plan/Dx 1. R calf ulcers x 2, venous insufficiency. 2. Cellulitis, due to infected ulcers. 3. R/O arterial obstruction. 4. Diabetes with ulcer. 5. Lymphedema. Plan: The appearance of the leg is much improved with IV antibiotics and elevation. Arterial Doppler requested to R/O interval arterial blockage. We will use only ABD dressings, as other dressings are painful to patient. OLIVER COBOS MD Jan 23, 2019 08:53 POS
[2019-01-23] MEDS ORDERED: PHARMACY TO DOSE SQ SCH (09:00)
--- NOTE | 2019-01-23 09:42 | NUR ---
PRIOR TO A.M. MEDICATIONS PULSE WAS 60 BPM AND B/P WAS 161/71
--- NOTE | 2019-01-23 11:58 | Diagnostic Imaging Report ---
PROCEDURE: US Bilateral lower extremity arterial. TECHNIQUE: Multiple real-time grayscale images are obtained through both lower extremity arterial systems with color Doppler imaging and color Doppler spectral analysis. INDICATION: Open wound of the right lower extremity. CORRELATION STUDY: 12/09/2017 FINDINGS: Diffuse atherosclerotic changes noted throughout the major arteries of both legs. Major arteries are patent to the ankle. There is triphasic to biphasic waveforms noted throughout the major arteries. There is diffuse increased velocities throughout the major arteries. There does appear to be slightly more focal elevated velocity at the posterior tibial and dorsalis pedis arteries bilaterally but is most pronounced at the left anterior tibial artery up to 271 cm/s. IMPRESSION: 1. Patency of the major arteries of both legs. However, there does appear to be findings suggestive of likely a more focal small vessel disease below the tibial peroneal trifurcation. Dictated by: Dictated on workstation # [id number]
[2019-01-23 12:00] VITALS: BP 131/76
[2019-01-23] MEDS ORDERED: meTOproloL SUCCINATE 50 MG (TOPROL XL) TAB PO SCH (12:00)
[2019-01-23] MEDS ORDERED: AMIODARONE 200 MG (CORDARONE) TAB PO SCH (12:00)
--- NOTE | 2019-01-23 12:42 | Progress Note - Hospitalist ---
Subjective HPI/CC On Admission Date Seen by Provider: Jan 23, 2019 Time Seen by Provider: 09:45 worsening right leg wound and cellulitis Subjective/Events-last exam She reports feeling a bit better today. She reports that the redness on her right leg is a bit better today. Denies any fevers, chills, chest pain, shortness of breath, abdominal pain, nausea, or vomiting. Objective Exam Vital Signs Vital Signs Date Time Temp Pulse Resp B/P (MAP) Pulse Ox O2 Delivery O2 Flow Rate FiO2 01/23/19 09:00 94 Room Air 01/23/19 08:00 36.5 60 18 161/71 (101) Capillary Refill : General Appearance: No Apparent Distress, Obese HEENT: PERRL/EOMI, Pharynx Normal Neck: Normal Inspection, Supple Respiratory: Lungs Clear, Normal Breath Sounds, No Respiratory Distress Cardiovascular: Regular Rate, Rhythm, No Murmur Gastrointestinal: Normal Bowel Sounds, Non Tender, Soft Extremity: Inflammation, Swelling, Other (dressing on right lower extremity) Neurologic/Psychiatric: Alert, Oriented x3, No Motor/Sensory Deficits, Normal Mood/Affect Skin: Other (right lower extremity wound, bilateral venous stasis dermatitis) Results/Procedures Lab Laboratory Tests 01/22/19 14:30 01/23/19 04:40 Patient resulted labs reviewed. Imaging: Reviewed Imaging Report Assessment/Plan Assessment and Plan Assess & Plan/Chief Complaint Cellulitis of right lower extremity Non-healing ulcer of right leg -continue Vancomycin and Cefepime -wound care following -lower extremity arterial ultrasound today HTN Paroxysmal atrial fibrillation HLD -Continue home meds DVT Prophylaxis: already receiving therapeutic anticoagulation Diagnosis/Problems Diagnosis/Problems (1) Cellulitis of right lower extremity Status: Acute (2) Non-healing ulcer of right ankle Status: Chronic (3) Paroxysmal A-fib Status: Chronic (4) HLD (hyperlipidemia) Status: Chronic (5) Hypertension Status: Chronic Qualifiers: Hypertension type: essential hypertension Qualified Codes: I10 - Essential (primary) hypertension Clinical Quality Measures DVT/VTE Risk/Contraindication: Risk Factor Score Per Nursin RFS Level Per Nursing on Admit: 4+=Very High JE WOODARD MD Jan 23, 2019 12:42 POS
[2019-01-23] MEDS: meTOproloL SUCCINATE 50 MG (TOPROL XL) TAB PO SCH (12:56)
[2019-01-23] MEDS: AMIODARONE 200 MG (CORDARONE) TAB PO SCH (12:56)
[2019-01-23] MEDS: APIXABAN 5 MG (ELIQUIS) TABLET PO SCH ×2 (12:56→19:55)
[2019-01-23] MEDS: ACETAMINOPHEN 325 MG TABLET PO PRN ×2 (12:57→19:52)
--- NOTE | 2019-01-23 14:04 | NUR ---
CM/SS patient could possibly discharge over the weekend. Patient had previously had HHC with [facility]. Spoke with [facility] to let them know that patient could possibly discharge over the weekend and that then HHC resume on 01/26.
--- NOTE | 2019-01-23 14:34 | NUR ---
RD ASSESSMENT PMHx: afib; hypercholesterolemia; HTN; DM; CA(melanoma) PT INTERACTION: Pt was awake and pleasant during nutrition assessment. Pt states current appetite is "okay." Note pt is eating well, per chart review. Pt states following an ADA diet at home, and currently has no problems with chewing/swallowing food at this time. Pt states no recent issues with n/v/c/d at this time. Pt states last BM was 01/22. Note pt currently on bowel regimen of senna, bisacodyl, miralax. Note pt currently has wound on R leg. Pt states recent 30# wt loss x6mon. Note 4# wt gain x6mon, per chart review. Pt states current DM management is good, with her being able to control blood glucose levels with diet alone. ABNORMAL NUTRITION-RELATED LAB VALUES: BUN 28 (H) Est. kcal needs: 3359-1416 kcal (15-18 kcal/kg) Est. Pro needs: 114-142 g Pro (0.8-1.0 g Pro/kg) PES STATEMENT: Inadequate protein intake (NI-5.6.1) related to increased protein needs as evidenced by wound (R leg) INTERVENTION: Continue with current diet order of Regular diet. Add Ensure HP (vary) to meals BID. Provides 160 kcal and 16 g Pro for perceived benefit wound healing. MONITOR/EVALUATE: PO Intake; Plan of Care; Hydration Status; Weight Status; Lab Values Isabel Bryson, MS, RD, LD Ext. 133
[2019-01-23] MEDS: VANCOMYCIN 2000 MG/NS 500 ML IVPB IV SCH ×2 (15:32)
[2019-01-23 16:00] VITALS: BP 145/66
[2019-01-23 19:25] VITALS: BP 166/82
[2019-01-23] MEDS: MONTELUKAST 10 MG (SINGULAIR) TAB PO SCH (19:55)
[2019-01-23] MEDS: SENNA W/DOCUSATE (SENOKOT S) TABLET PO SCH (19:56)
[2019-01-24 00:16] VITALS: BP 156/78
[2019-01-24 04:21] VITALS: BP 162/69
[2019-01-24] MEDS: CEFEPIME 2,000 MG/SWFI 20 ML IV PUSH IV SCH ×4 (04:28→17:10)
[2019-01-24 04:46] LABS: BASOPHILS % (AUTO) 0 % (0-10); EOSINOPHILS # (AUTO) 0.1 10^3/uL (0.0-0.3); EOSINOPHILS % (AUTO) 2 % (0-10); HEMATOCRIT 36 % (35-52); HEMOGLOBIN 11.5 G/DL (11.5-16.0); LYMPHOCYTES # (AUTO) 0.9 X 10^3 (1.0-4.0); LYMPHOCYTES % (AUTO) 23 % (12-44); MEAN CORPUSCULAR HEMOGLOBIN 31 PG (25-34); MEAN CORPUSCULAR HGB CONC 32 G/DL (32-36); MEAN CORPUSCULAR VOLUME 97 FL (80-99); MEAN PLATELET VOLUME 9.2 FL (7.4-10.4); MONOCYTES # (AUTO) 0.6 X 10^3 (0.0-1.0); MONOCYTES % (AUTO) 14 % (0-12); NEUTROPHILS # (AUTO) 2.5 X 10^3 (1.8-7.8); NEUTROPHILS % (AUTO) 61 % (42-75); PLATELET COUNT 174 10^3/uL (130-400); RED CELL DISTRIBUTION WIDTH 13.5 % (10.0-14.5); WHITE BLOOD COUNT 4.1 10^3/uL (4.3-11.0)
[2019-01-24 05:05] LABS: CREATININE SERUM 1.06 MG/DL (0.60-1.30); POTASSIUM 3.9 MMOL/L (3.6-5.0)
[2019-01-24 07:20] VITALS: BP 156/67
[2019-01-24] MEDS: FUROSEMIDE 40 MG (LASIX) TAB PO SCH (08:34)
[2019-01-24] MEDS: CALCIUM CARBONATE 600 MG (CALCARB) TAB PO SCH (08:34)
[2019-01-24 12:00] VITALS: BP 149/67
[2019-01-24] MEDS: AMIODARONE 200 MG (CORDARONE) TAB PO SCH (12:01)
[2019-01-24] MEDS: APIXABAN 5 MG (ELIQUIS) TABLET PO SCH ×2 (12:01→21:16)
[2019-01-24] MEDS: meTOproloL SUCCINATE 50 MG (TOPROL XL) TAB PO SCH (12:01)
--- NOTE | 2019-01-24 12:15 | Wound Care Assessment ---
Wound Care Assessment Date Seen by Provider: Jan 24, 2019 Time Seen by Provider: 11:50 Chief Complaint Cellulitis R calf. HPI The patient is a 73 year old female with long-standing refractory venous insufficiency ulcer and acute deterioration of the wound appearance and marked increase in wound related pain. The wound is improved with bed rest and IV antibiotics. Arterial evaluation ordered to R/O new arterial blockage. 01/24/19 Interval Note: Had pain in the leg last night, but now better. States that she is unable to elevate for long periods due to a feeling of wetness behind her thigh. Scalding of skin of lower calf is improved. ABD dressing stuck to skin. We will change to Xeroform as primary dressing. The cellulitis is much improved with present antibiotics. Culture growing Pseudomonas, sensitivities pending. I discussed with the patient the need for daily dressings going forward. Past Medical History: Admits Diabetes Type II, Admits Heart Disease (Atrial Fibrillation, hypertension, obesity, obstructive sleep apnea.) Recreational Drug Use: No Alcohol Use: Denies Use Review of Systems Pulmonary: No Dyspnea Cardiovascular: No: Chest Pain Musculoskeletal: leg pain Exam Vital Signs Date Time Temp Pulse Resp B/P (MAP) Pulse Ox O2 Delivery O2 Flow Rate FiO2 01/24/19 09:00 94 Room Air 01/24/19 07:20 36.1 57 16 156/67 (96) Capillary Refill : General Appearance: no apparent distress Neck: normal inspection Cardiovascular: regular rate, rhythm Respiratory: normal breath sounds Gastrointestinal: normal bowel sounds, non tender, soft Extremities: other (R lateral calf ulcer -- 1.5 x 2.0 x 0.3 cm, base 100% slough, mod. s.s. drainage.) Results Laboratory Tests 01/24/19 04:30: White Blood Count 4.1L, Red Blood Count 3.69L, Hemoglobin 11.5, Hematocrit 36, Mean Corpuscular Volume 97, Mean Corpuscular Hemoglobin 31, Mean Corpuscular Hemoglobin Concent 32, Red Cell Distribution Width 13.5, Platelet Count 174, Mean Platelet Volume 9.2, Neutrophils (%) (Auto) 61, Lymphocytes (%) (Auto) 23, Monocytes (%) (Auto) 14H, Eosinophils (%) (Auto) 2, Basophils (%) (Auto) 0, Neutrophils # (Auto) 2.5, Lymphocytes # (Auto) 0.9L, Monocytes # (Auto) 0.6, Eosinophils # (Auto) 0.1, Basophils # (Auto) 0.0, Sodium Level 142, Potassium Level 3.9, Chloride Level 106, Carbon Dioxide Level 24, Anion Gap 12, Blood Urea Nitrogen 25H, Creatinine 1.06, Estimat Glomerular Filtration Rate 51, BUN/Creatinine Ratio 24, Glucose Level 124H, Calcium Level 9.0 Assessment/Plan/Dx 1. R calf ulcers x 2, venous insufficiency. 2. Cellulitis, due Pseudomonas infection. 3. Diabetes with ulcer. 4. Lymphedema. Plan: Appearance of leg is improved. Add Xeroform to ABD dressings to prevent sticking. OLIVER COBOS MD Jan 24, 2019 12:15 POS
[2019-01-24] MEDS: ACETAMINOPHEN 325 MG TABLET PO PRN ×2 (14:28→21:18)
[2019-01-24 16:00] VITALS: BP 149/66
--- NOTE | 2019-01-24 17:55 | Progress Note - Hospitalist ---
Subjective HPI/CC On Admission Date Seen by Provider: Jan 24, 2019 Time Seen by Provider: 10:30 worsening right leg wound and cellulitis Subjective/Events-last exam She reports thinks her leg is doing better daily. She thinks the redness is improved. She denies any fevers or chills. She denies any abdominal pain, nausea, vomiting. She denies any chest pain or shortness of breath. Objective Exam Vital Signs Vital Signs Date Time Temp Pulse Resp B/P (MAP) Pulse Ox O2 Delivery O2 Flow Rate FiO2 01/24/19 16:00 36.8 60 16 149/66 (93) 96 Room Air Capillary Refill : General Appearance: No Apparent Distress, Obese Neck: Normal Inspection, Supple Respiratory: Lungs Clear, Normal Breath Sounds, No Respiratory Distress Cardiovascular: Regular Rate, Rhythm, No Murmur Gastrointestinal: Normal Bowel Sounds, Non Tender, Soft Extremity: Inflammation, Swelling Neurologic/Psychiatric: Alert, Oriented x3, No Motor/Sensory Deficits, Normal Mood/Affect Skin: Erythema, Other (Right circumferential ankle wound with lateral ulcer) Results/Procedures Lab Laboratory Tests 01/24/19 04:30 Patient resulted labs reviewed. Assessment/Plan Assessment and Plan Assess & Plan/Chief Complaint Cellulitis of right lower extremity Non-healing ulcer of right leg Culture growing pseudomonas aeruginosa Continue cefepime Discontinue vancomycin with no growth of staph wound care following Await sensitivities, likely discharge tomorrow HTN Paroxysmal atrial fibrillation HLD -Continue home meds DVT Prophylaxis: already receiving therapeutic anticoagulation Diagnosis/Problems Diagnosis/Problems (1) Cellulitis of right lower extremity Status: Acute (2) Non-healing ulcer of right ankle Status: Chronic (3) Paroxysmal A-fib Status: Chronic (4) HLD (hyperlipidemia) Status: Chronic (5) Hypertension Status: Chronic Qualifiers: Hypertension type: essential hypertension Qualified Codes: I10 - Essential (primary) hypertension Clinical Quality Measures DVT/VTE Risk/Contraindication: Risk Factor Score Per Nursin RFS Level Per Nursing on Admit: 4+=Very High JE WOODARD MD Jan 24, 2019 17:55 POS
[2019-01-24] MEDS: MONTELUKAST 10 MG (SINGULAIR) TAB PO SCH (21:15)
[2019-01-24] MEDS: SENNA W/DOCUSATE (SENOKOT S) TABLET PO SCH (21:16)
[2019-01-25 00:15] VITALS: BP 138/61
[2019-01-25] MEDS: ACETAMINOPHEN 325 MG TABLET PO PRN ×2 (01:13→08:32)
[2019-01-25] MEDS: CEFEPIME 2,000 MG/SWFI 20 ML IV PUSH IV SCH ×2 (04:11)
[2019-01-25 04:46] LABS: CREATININE SERUM 1.22 MG/DL (0.60-1.30); POTASSIUM 4.2 MMOL/L (3.6-5.0)
[2019-01-25 07:55] VITALS: BP 169/89
[2019-01-25] MEDS: FUROSEMIDE 40 MG (LASIX) TAB PO SCH (08:27)
[2019-01-25] MEDS: CALCIUM CARBONATE 600 MG (CALCARB) TAB PO SCH (08:27)
[2019-01-25] MEDS ORDERED: LEVOFLOXACIN 750 MG TAB (LEVAQUIN) PO ONE (12:00)
[2019-01-25] MEDS ORDERED: LEVO750T9 PO (12:02)
--- NOTE | 2019-01-25 12:30 | NUR ---
DRESSING CHANGED TO RIGHT LOWER LEG AND FOOT, LEG PINK WITH DRY SKIN, ULCERATED AREA ON RIGHT OUTER LEG, YURI WELL
[2019-01-25] MEDS: APIXABAN 5 MG (ELIQUIS) TABLET PO SCH (12:39)
[2019-01-25] MEDS: meTOproloL SUCCINATE 50 MG (TOPROL XL) TAB PO SCH (12:39)
[2019-01-25] MEDS: AMIODARONE 200 MG (CORDARONE) TAB PO SCH (12:40)
--- NOTE | 2019-01-25 15:05 | Discharge Summary ---
Discharge Summary Reconcile Patient Problems Problems Reviewed?: Yes Instructions for Patient Via [facility], Assessment/Instructions Take medications as prescribed. Resume home health. Follow up with Dr. Salgado. Physician to follow Patient: Osbaldo Discharge Diet for Home: No Restrictions Hospital Course Date of Admission: Jan 23, 2019 at 12:50 Admission Diagnosis : Cellulitis of right lower extremity Family Physician/Provider: Liu Roblero MD Date of Discharge: 01/25/19 Discharge Diagnosis: Cellulitis of right lower extremity Hospital Course: Felipa Vasquez is a 73yoF with a chronic right lower extremity wound who presented to the wound clinic with worsening erythema. She was admitted from clinic with cellulitis and was given IV Vancomycin and Cefepime. The Vancomycin was discontinued when cultures returned with Pseudomonas aeruginosa. When susceptibilities returned, she was transitioned to oral Levaquin and discharged home. She will resume home health on Saturday. She will follow up in the wound clinic with Dr. Salgado. Labs and Pending Lab Test: Laboratory Tests 01/25/19 04:10: Sodium Level 142, Potassium Level 4.2, Chloride Level 106, Carbon Dioxide Level 23, Anion Gap 13, Blood Urea Nitrogen 40H, Creatinine 1.22, Estimat Glomerular Filtration Rate 43, BUN/Creatinine Ratio 33, Glucose Level 100, Calcium Level 9.0 Home Meds Active Levaquin (Levofloxacin) 750 Mg Tablet 750 Mg PO DAILY 6 Days Reported Benadryl (Diphenhydramine HCl) 25 Mg Capsule 50 Mg PO QID Aranesp (Darbepoetin Felice in Polysorbat) 40 Mcg/1 Ml Vial 30 Mcg IV EVERY 3 WEEKS Metoprolol Succinate 50 Mg Tab.er.24h 50 Mg PO 1200 Amiodarone HCl 200 Mg Tablet 200 Mg PO 1200 Tramadol HCl 50 Mg Tablet 50-100 Mg PO Q6H PRN Calcium Carbonate 600 Mg Tablet 600 Mg PO DAILY Eliquis (Apixaban) 5 Mg Tablet 5 Mg PO 1200,2100 Magnesium Citrate 125 Mg Capsule 250 Mg PO HS TAKES 2 (125MG) CAPSULES Potassium Chloride 10 Meq Tablet.er 10 Meq PO DAILY Furosemide 40 Mg Tablet 60 Mg PO DAILY TAKES 1 & 1/2 (40MG) TABLET Ventolin Hfa (Albuterol Sulfate) 18 Gm Hfa.aer.ad 2 Puff INH Q4H PRN Advair 250-50 Diskus (Fluticasone/Salmeterol) 1 Each Blst.w.dev 1 Puff INH BID Tylenol Extra Strength (Acetaminophen) 500 Mg Tablet 1,000 Mg PO Q4H PRN Atorvastatin Calcium 40 Mg Tablet 40 Mg PO HS Montelukast Sodium 10 Mg Tablet 10 Mg PO HS Vitamin D3 (Cholecalciferol (Vitamin D3)) 2,000 Unit Capsule 2,000 Unit PO DAILY Vitamin C (Ascorbate Calcium) 500 Mg Tablet 500 Mg PO DAILY Folic Acid 1 Mg Tablet 1 Mg PO DAILY Vitamin B-12 (Cyanocobalamin) 100 Mcg Tablet 200 Mcg PO DAILY Consulations Wound Patient Allergies: Coded Allergies: NSAIDS (Non-Steroidal Anti-Inflamma (Verified Allergy, Severe, BLOOD IN URINE, 06/23/18) celecoxib (Unverified Allergy, Severe, BLOOD IN URINE, 06/23/18) penicillin G (Verified Allergy, Unknown, HAS RECEIVED ANCEF W/O ISSUE, 10/13/15) Height (Feet): 5 Height (Inches): 4.00 Weight (Pounds): 309 Weight (Ounces): 14.0 Home Health Need/Face to Face Date of Face to Face: Jan 25, 2019 Clinical Findings: Wound infection, Non-healing wound I have seen Pt [id number]: Yes Discharged To: Home Diagnosis/Conditions: Cellulitis and non-healing right leg wound Problems/Diagnosis/Condition: (1) Cellulitis of right lower extremity (2) Non-healing ulcer of right ankle Patient is Homebound due to: Pain w/ambulation Homebound Status Due to the above stated illness, injury or surgical procedure (medical condition or diagnosis) and associated clinical findings, the patient is homebound because of his/her inability to leave home except with aid of a supportive device and/or person AND leaving the home requires a considerable and taxing effort or is medically contraindicated. Pt req the following assistanc: Aid of another person, Cane Home Health Nursing Orders Home Health Services Order: Nursing Services, Wound Care-Eval/Treat Certify Stmt I certify that this patient is under my care and that I, a nurse practitioner or a physician; a circulation assistant working with me, had a face to face encounter that - meets the physician face to face encounter requirements with this patient as dated. Discharge Physical Exam General: Alert, Oriented X3, Cooperative, No Acute Distress HEENT: Atraumatic, EOMI, Mucous Memb Moist/[place] Lungs: Clear to Auscultation, Normal Air Movement Heart: Regular Rate, Normal S1, Normal S2, No Murmurs Abdomen: Normal Bowel Sounds, Soft, No Tenderness Extremities: No Edema, No Tenderness/Swelling Skin: No Rashes, No Significant Lesion Neuro: Normal Speech Psych/Mental Status: Mental Status NL, Mood NL JE WOODARD MD Jan 25, 2019 15:04 POS
[2019-01-25 15:33] VITALS: BP 169/89
--- NOTE | 2019-01-25 15:33 | NUR ---
ARNOL DIAZ demonstrates understanding of discharge instructions and accurately returns instructions upon questioning. Copy of Post-Discharge Instructions and Medication Discharge Instructions given to PATIENT. ARNOL DIAZ is able to manage continuing needs after discharge. Patients belongings returned to PATIENT. Skin dry and intact; no breakdown noted. [facility]25[facility]19 at 1533. ARNOL DIAZ left floor via W/C, accompanied by STAFF AND SON.
--- NOTE | 2019-01-26 13:25 | Physician Query Clarification ---
PQ-Link Manifestation-Etiology Admission/Discharge Admission Date: Jan 23, 2019 at 12:50 Discharge Date: Jan 25, 2019 at 15:33 The medical record reflects the following clinical scenario: History/Risk Factors: diabetes mellitus, cellulitis Clinical Findings: cellulitis, calf ulcer Treatment: IV antibiotics Question: Can you specify if the cellulitis is due to/associated with type 2 diabetes mellitus? Please document a response in the Progress Note or Discharge Summary. 1. Yes - cellulitis is due to/associated with diabetes mellitus. 2. No - cellulitis is not due to/associated with diabetes mellitus. 3. Other, with explanation of the clinical findings. 4. Clinically undetermined, no explanation for the clinical findings. PHYSICIAN RESPONSE Manifestation due to/assoic: No Please remember a lack of response to the above will prompt a phone page by [facility]/Coding staff. In responding to this query, please exercise your independent professional judgment. The purpose of this communication is to more accurately reflect the complexity of your patients condition. The fact that a question is asked does not imply that any particular answer is desired or expected. Thank you for your timely response to this clarification. Requestors name: Blossom Montanez Phone # [phone] THIS PHYSICIAN QUERY FORM IS A PERMANENT PART OF THE MEDICAL RECORD BLOSSOM HOLM Jan 26, 2019 13:25 JE AGUILERA MD Feb 02, 2019 14:57 POS
== END 2019-01-25 15:33 | disposition home health service (06) | DRG 603 ==
LOC: 4TH 12:45 → UNDOADMOB 12:45 → INTOOBSV 12:45 → 4TH 13:28 → INTOOBSV 01-23 12:50 → OBSVTOIN 01-23 12:50 → UNDODISIN 01-25 15:33
PROVIDERS: ADMIT Internal Medicine; ATTEND Internal Medicine
DX: L03.115 Cellulitis of right lower limb (principal); E11.622 Type 2 diabetes mellitus with other skin ulcer; L97.219 Non-pressure chronic ulcer of right calf with unspecified severity; B96.5 Pseudomonas (aeruginosa) (mallei) (pseudomallei) as the cause of diseases classified elsewhere; I89.0 Lymphedema, not elsewhere classified; E66.9 Obesity, unspecified; Z68.43 Body mass index [BMI] 50.0-59.9, adult; I87.2 Venous insufficiency (chronic) (peripheral); I48.0 Paroxysmal atrial fibrillation; I10 Essential (primary) hypertension; G47.33 Obstructive sleep apnea (adult) (pediatric); E78.5 Hyperlipidemia, unspecified; E78.00 Pure hypercholesterolemia, unspecified; M19.91 Primary osteoarthritis, unspecified site; K44.9 Diaphragmatic hernia without obstruction or gangrene; Z85.820 Personal history of malignant melanoma of skin
CPT/HCPCS: 36415; 73590; 80048; 80053; 82962; 83735; 85025; 85652; 86141; 93925; G0378

== ENCOUNTER → 2019-01-22 | Outpatient (CLI) | payer MEDICARE ==
[~2019-01-22] MED LIST changes: +DIPH25CA79 PO; +LEVO750T9 PO
== END ==
LOC: WOUNDCARE 10:55
PROVIDERS: ATTEND Nurse Practitioner
DX: L97.212 Non-pressure chronic ulcer of right calf with fat layer exposed (principal); I87.331 Chronic venous hypertension (idiopathic) with ulcer and inflammation of right lower extremity; E11.622 Type 2 diabetes mellitus with other skin ulcer; E66.01 Morbid (severe) obesity due to excess calories; L03.115 Cellulitis of right lower limb
CPT/HCPCS: 11042; 87070; 87075; 87077; 87101; 87186; 87205

== ENCOUNTER → 2019-01-29 | Outpatient (CLI) | payer MEDICARE ==
[~2019-01-29] MED LIST changes: +DIPH25CA79 PO; +LEVO750T9 PO
== END ==
LOC: WOUNDCARE 10:48
PROVIDERS: ATTEND Nurse Practitioner
DX: L97.212 Non-pressure chronic ulcer of right calf with fat layer exposed (principal); I87.331 Chronic venous hypertension (idiopathic) with ulcer and inflammation of right lower extremity; E11.622 Type 2 diabetes mellitus with other skin ulcer; E66.01 Morbid (severe) obesity due to excess calories; L03.115 Cellulitis of right lower limb; E11.52 Type 2 diabetes mellitus with diabetic peripheral angiopathy with gangrene
CPT/HCPCS: 99213

== ENCOUNTER → 2019-02-05 | Outpatient (CLI) | payer MEDICARE | LOC: WOUNDCARE 11:04 | PROVIDERS: ATTEND Nurse Practitioner | DX: E11.622 Type 2 diabetes mellitus with other skin ulcer (principal); L97.212 Non-pressure chronic ulcer of right calf with fat layer exposed; I87.331 Chronic venous hypertension (idiopathic) with ulcer and inflammation of right lower extremity; E66.01 Morbid (severe) obesity due to excess calories; L03.115 Cellulitis of right lower limb | CPT/HCPCS: 99212 ==

== ENCOUNTER → 2019-02-12 | Outpatient (CLI) | payer MEDICARE | LOC: WOUNDCARE 10:50 | PROVIDERS: ATTEND Nurse Practitioner | DX: L97.212 Non-pressure chronic ulcer of right calf with fat layer exposed (principal); I87.331 Chronic venous hypertension (idiopathic) with ulcer and inflammation of right lower extremity; E11.622 Type 2 diabetes mellitus with other skin ulcer; E66.01 Morbid (severe) obesity due to excess calories; L03.115 Cellulitis of right lower limb | CPT/HCPCS: 99212 ==

== ENCOUNTER → 2019-02-26 | Outpatient (CLI) | payer MEDICARE ==
[~2019-02-26] MED LIST changes: +ACET325T38 PO; +ACET325T49 PO; +BISA10SU8 RC; +BUDE10.22 IH; +CEFE1FRO IV; +CHOL200059 PO; +DEXT38GE12 PO; +DOCU100C37 PO; +FURO20TA4 PO; +INSU100V SQ; +IPRA3AMP31 IH; -METO-370 PO; -METO-387 PO; +METO50TA7 PO; +MTP25TSR PO; +PANT40TA3 PO; +POLY17PO6 PO; +POTA10TA PO; +SNN187T PO; -TRAM50TA2 PO; +TRM50T PO; +VANC1.5P12 IV; +VANC2PIG IV; +[UNRECOGNIZED DRUG - CODE] PO
== END ==
LOC: WOUNDCARE 10:28
PROVIDERS: ATTEND Nurse Practitioner
DX: L97.212 Non-pressure chronic ulcer of right calf with fat layer exposed (principal); I87.331 Chronic venous hypertension (idiopathic) with ulcer and inflammation of right lower extremity; E11.622 Type 2 diabetes mellitus with other skin ulcer; E66.01 Morbid (severe) obesity due to excess calories; L03.115 Cellulitis of right lower limb
CPT/HCPCS: 99213

== ENCOUNTER → 2019-03-05 | Outpatient (CLI) | payer MEDICARE ==
[~2019-03-05] MED LIST changes: -ACET325T38 PO; -ACET325T49 PO; -BISA10SU8 RC; -BUDE10.22 IH; -CEFE1FRO IV; -CHOL200059 PO; -DEXT38GE12 PO; -DOCU100C37 PO; -FURO20TA4 PO; -INSU100V SQ; -IPRA3AMP31 IH; +METO-370 PO; +METO-387 PO; -METO50TA7 PO; -MTP25TSR PO; -PANT40TA3 PO; -POLY17PO6 PO; -POTA10TA PO; -SNN187T PO; +TRAM50TA2 PO; -TRM50T PO; -VANC1.5P12 IV; -VANC2PIG IV; -[UNRECOGNIZED DRUG - CODE] PO
== END ==
LOC: WOUNDCARE 10:56
PROVIDERS: ATTEND Nurse Practitioner
DX: E11.622 Type 2 diabetes mellitus with other skin ulcer (principal); E11.52 Type 2 diabetes mellitus with diabetic peripheral angiopathy with gangrene; E66.01 Morbid (severe) obesity due to excess calories; L97.212 Non-pressure chronic ulcer of right calf with fat layer exposed; I87.331 Chronic venous hypertension (idiopathic) with ulcer and inflammation of right lower extremity; L03.115 Cellulitis of right lower limb; I96 Gangrene, not elsewhere classified
CPT/HCPCS: 11042; 87070; 87075; 87077; 87186; 87205

== ENCOUNTER → 2019-03-12 | Outpatient (CLI) | payer MEDICARE | LOC: WOUNDCARE 10:51 | PROVIDERS: ATTEND Nurse Practitioner | DX: E11.622 Type 2 diabetes mellitus with other skin ulcer (principal); E66.01 Morbid (severe) obesity due to excess calories; L97.212 Non-pressure chronic ulcer of right calf with fat layer exposed; I87.331 Chronic venous hypertension (idiopathic) with ulcer and inflammation of right lower extremity; L03.115 Cellulitis of right lower limb | CPT/HCPCS: 99212 ==

== ENCOUNTER → 2019-03-20 | Outpatient (CLI) | payer MEDICARE | LOC: WOUNDCARE 11:19 | PROVIDERS: ATTEND Surgery | DX: E11.622 Type 2 diabetes mellitus with other skin ulcer (principal); E66.01 Morbid (severe) obesity due to excess calories; L97.212 Non-pressure chronic ulcer of right calf with fat layer exposed; I87.331 Chronic venous hypertension (idiopathic) with ulcer and inflammation of right lower extremity; L03.115 Cellulitis of right lower limb | CPT/HCPCS: 99213 ==

== ENCOUNTER → 2019-03-26 | Outpatient (CLI) | payer MEDICARE ==
[~2019-03-26] MED LIST changes: -TRAM50TA2 PO; +TRM50T PO
== END ==
LOC: WOUNDCARE 10:39
PROVIDERS: ATTEND Nurse Practitioner
DX: L97.212 Non-pressure chronic ulcer of right calf with fat layer exposed (principal); I87.331 Chronic venous hypertension (idiopathic) with ulcer and inflammation of right lower extremity; E11.622 Type 2 diabetes mellitus with other skin ulcer; E11.52 Type 2 diabetes mellitus with diabetic peripheral angiopathy with gangrene; E66.01 Morbid (severe) obesity due to excess calories; L03.115 Cellulitis of right lower limb
CPT/HCPCS: 99213

== ENCOUNTER → 2019-03-30 | Outpatient (CLI) | payer MEDICARE ==
[2019-03-31 11:35] LABS: CALCIUM 8.9 MG/DL (8.5-10.1); CREATININE SERUM 1.47 MG/DL (0.60-1.30); POTASSIUM 4.8 MMOL/L (3.6-5.0)
== END ==
LOC: LAB 08:00
PROVIDERS: ATTEND Surgery
DX: I87.331 Chronic venous hypertension (idiopathic) with ulcer and inflammation of right lower extremity (principal); L97.212 Non-pressure chronic ulcer of right calf with fat layer exposed; I12.9 Hypertensive chronic kidney disease with stage 1 through stage 4 chronic kidney disease, or unspecified chronic kidney disease; E11.22 Type 2 diabetes mellitus with diabetic chronic kidney disease; N18.2 Chronic kidney disease, stage 2 (mild); J44.9 Chronic obstructive pulmonary disease, unspecified; I48.0 Paroxysmal atrial fibrillation; E11.51 Type 2 diabetes mellitus with diabetic peripheral angiopathy without gangrene; E11.42 Type 2 diabetes mellitus with diabetic polyneuropathy; E66.2 Morbid (severe) obesity with alveolar hypoventilation; Z79.01 Long term (current) use of anticoagulants; Z91.81 History of falling; Z48.00 Encounter for change or removal of nonsurgical wound dressing
CPT/HCPCS: 36415; 80048

== ENCOUNTER 2019-04-01 12:51 | Outpatient (RCR) | payer MEDICARE ==
[2019-01-28 13:52] LABS: BASOPHILS % (AUTO) 0 % (0-10); EOSINOPHILS # (AUTO) 0.1 10^3/uL (0.0-0.3); EOSINOPHILS % (AUTO) 2 % (0-10); HEMATOCRIT 38 % (35-52); LYMPHOCYTES # (AUTO) 1.1 X 10^3 (1.0-4.0); LYMPHOCYTES % (AUTO) 23 % (12-44); MEAN CORPUSCULAR HEMOGLOBIN 31 PG (25-34); MEAN CORPUSCULAR HGB CONC 32 G/DL (32-36); MEAN CORPUSCULAR VOLUME 98 FL (80-99); MEAN PLATELET VOLUME 9.2 FL (7.4-10.4); MONOCYTES # (AUTO) 0.4 X 10^3 (0.0-1.0); MONOCYTES % (AUTO) 7 % (0-12); NEUTROPHILS # (AUTO) 3.3 X 10^3 (1.8-7.8); NEUTROPHILS % (AUTO) 67 % (42-75); PLATELET COUNT 194 10^3/uL (130-400); RED CELL DISTRIBUTION WIDTH 13.3 % (10.0-14.5); WHITE BLOOD COUNT 4.9 10^3/uL (4.3-11.0)
[2019-01-28 14:12] LABS: CALCIUM 9.3 MG/DL (8.5-10.1); CREATININE SERUM 1.32 MG/DL (0.60-1.30); POTASSIUM 4.6 MMOL/L (3.6-5.0)
[2019-02-17 13:38] LABS: BASOPHILS % (AUTO) 0 % (0-10); EOSINOPHILS # (AUTO) 0.1 10^3/uL (0.0-0.3); EOSINOPHILS % (AUTO) 1 % (0-10); HEMATOCRIT 35 % (35-52); LYMPHOCYTES # (AUTO) 1.1 X 10^3 (1.0-4.0); LYMPHOCYTES % (AUTO) 19 % (12-44); MEAN CORPUSCULAR HEMOGLOBIN 31 PG (25-34); MEAN CORPUSCULAR HGB CONC 32 G/DL (32-36); MEAN CORPUSCULAR VOLUME 98 FL (80-99); MEAN PLATELET VOLUME 8.6 FL (7.4-10.4); MONOCYTES # (AUTO) 0.4 X 10^3 (0.0-1.0); MONOCYTES % (AUTO) 8 % (0-12); NEUTROPHILS # (AUTO) 4.2 X 10^3 (1.8-7.8); NEUTROPHILS % (AUTO) 73 % (42-75); PLATELET COUNT 212 10^3/uL (130-400); RED CELL DISTRIBUTION WIDTH 13.1 % (10.0-14.5); WHITE BLOOD COUNT 5.8 10^3/uL (4.3-11.0)
[2019-03-11 13:54] LABS: BASOPHILS % (AUTO) 0 % (0-10); EOSINOPHILS # (AUTO) 0.1 10^3/uL (0.0-0.3); EOSINOPHILS % (AUTO) 1 % (0-10); HEMATOCRIT 34 % (35-52); HEMOGLOBIN 10.7 G/DL (11.5-16.0); LYMPHOCYTES # (AUTO) 0.9 X 10^3 (1.0-4.0); LYMPHOCYTES % (AUTO) 14 % (12-44); MEAN CORPUSCULAR HEMOGLOBIN 31 PG (25-34); MEAN CORPUSCULAR HGB CONC 32 G/DL (32-36); MEAN CORPUSCULAR VOLUME 97 FL (80-99); MEAN PLATELET VOLUME 8.4 FL (7.4-10.4); MONOCYTES # (AUTO) 0.4 X 10^3 (0.0-1.0); MONOCYTES % (AUTO) 7 % (0-12); NEUTROPHILS # (AUTO) 4.9 X 10^3 (1.8-7.8); NEUTROPHILS % (AUTO) 78 % (42-75); PLATELET COUNT 203 10^3/uL (130-400); RED CELL DISTRIBUTION WIDTH 12.6 % (10.0-14.5); WHITE BLOOD COUNT 6.2 10^3/uL (4.3-11.0)
[~2019-04-01 12:51] MED LIST changes: +DARBEPOETIN 10 MCG/0.4 ML ARANESP IJ SCH; +DARBEPOETIN 40 MCG/ML (ARANESP) 1 ML VIAL SC SCH; -METO-370 PO; -METO-387 PO; +METO50TA7 PO; +MTP25TSR PO
[2019-04-01 13:11] LABS: BASOPHILS % (AUTO) 0 % (0-10); EOSINOPHILS # (AUTO) 0.1 10^3/uL (0.0-0.3); EOSINOPHILS % (AUTO) 1 % (0-10); HEMATOCRIT 34 % (35-52); HEMOGLOBIN 10.7 G/DL (11.5-16.0); LYMPHOCYTES % (AUTO) 11 % (12-44); MEAN CORPUSCULAR HEMOGLOBIN 30 PG (25-34); MEAN CORPUSCULAR HGB CONC 31 G/DL (32-36); MEAN CORPUSCULAR VOLUME 97 FL (80-99); MEAN PLATELET VOLUME 8.4 FL (7.4-10.4); MONOCYTES # (AUTO) 0.8 X 10^3 (0.0-1.0); MONOCYTES % (AUTO) 9 % (0-12); NEUTROPHILS # (AUTO) 6.7 X 10^3 (1.8-7.8); NEUTROPHILS % (AUTO) 79 % (42-75); PLATELET COUNT 255 10^3/uL (130-400); WHITE BLOOD COUNT 8.5 10^3/uL (4.3-11.0)
[2019-04-01 13:33] LABS: ALBUMIN 3.6 GM/DL (3.2-4.5); BILIRUBIN,TOTAL 0.4 MG/DL (0.1-1.0); CALCIUM 8.7 MG/DL (8.5-10.1); CREATININE SERUM 1.76 MG/DL (0.60-1.30); POTASSIUM 4.5 MMOL/L (3.6-5.0); TOTAL PROTEIN 7.1 GM/DL (6.4-8.2)
[2019-04-13] MEDS ORDERED: CHOL200059 PO (11:32)
[2019-04-13] MEDS ORDERED: POTA10TA PO (11:32)
[2019-04-17] MEDS ORDERED: CEFE1FRO IV (10:37)
[2019-04-17] MEDS ORDERED: ACET325T49 PO (10:37)
[2019-04-17] MEDS ORDERED: VANC2PIG IV (10:37)
[2019-04-27] MEDS ORDERED: ACET325T38 PO ×2 (13:19→13:28)
[2019-04-27] MEDS ORDERED: DOCU100C37 PO (13:19)
[2019-04-27] MEDS ORDERED: BUDE10.22 IH (13:19)
[2019-04-27] MEDS ORDERED: FURO20TA4 PO (13:19)
[2019-04-27] MEDS ORDERED: DEXT38GE12 PO (13:28)
[2019-04-27] MEDS ORDERED: SNN187T PO (13:28)
[2019-04-27] MEDS ORDERED: BISA10SU8 RC (13:28)
[2019-04-27] MEDS ORDERED: POLY17PO6 PO (13:28)
[2019-04-27] MEDS ORDERED: INSU100V SQ (13:28)
[2019-04-27] MEDS ORDERED: [UNRECOGNIZED DRUG - CODE] PO (13:28)
[2019-04-27] MEDS ORDERED: METO50TA7 PO (13:28)
[2019-04-27] MEDS ORDERED: IPRA3AMP31 IH (13:28)
[2019-04-27] MEDS ORDERED: PANT40TA3 PO (13:34)
[2019-04-28] MEDS ORDERED: VANC1.5P12 IV ×2 (11:46→11:50)
[2019-04-28] MEDS ORDERED: CEFE1FRO IV ×2 (11:47→11:50)
== END 2019-04-28 | disposition home or self-care (01) ==
LOC: ONC 12:51
PROVIDERS: ATTEND Internal Medicine Hematology & Oncology
DX: D50.9 Iron deficiency anemia, unspecified (principal); D63.1 Anemia in chronic kidney disease; N18.3 Chronic kidney disease, stage 3 (moderate); Z85.820 Personal history of malignant melanoma of skin; I10 Essential (primary) hypertension; E78.2 Mixed hyperlipidemia; Z82.49 Family history of ischemic heart disease and other diseases of the circulatory system; Z79.84 Long term (current) use of oral hypoglycemic drugs; Z79.899 Other long term (current) drug therapy; E11.622 Type 2 diabetes mellitus with other skin ulcer; I87.331 Chronic venous hypertension (idiopathic) with ulcer and inflammation of right lower extremity; L97.212 Non-pressure chronic ulcer of right calf with fat layer exposed; E66.01 Morbid (severe) obesity due to excess calories; Z68.43 Body mass index [BMI] 50.0-59.9, adult
CPT/HCPCS: 36591; 80048; 80053; 82728; 85025; 96372

== ENCOUNTER → 2019-04-02 | Outpatient (CLI) | payer MEDICARE ==
[~2019-04-02] MED LIST changes: -DARBEPOETIN 10 MCG/0.4 ML ARANESP IJ SCH; -DARBEPOETIN 40 MCG/ML (ARANESP) 1 ML VIAL SC SCH; +METO-370 PO; +METO-387 PO; -METO50TA7 PO; -MTP25TSR PO
== END ==
LOC: WOUNDCARE 10:42
PROVIDERS: ATTEND Orthopaedic Surgery Hand Surgery
DX: L97.212 Non-pressure chronic ulcer of right calf with fat layer exposed (principal); I87.331 Chronic venous hypertension (idiopathic) with ulcer and inflammation of right lower extremity; E11.622 Type 2 diabetes mellitus with other skin ulcer; E66.01 Morbid (severe) obesity due to excess calories; E11.52 Type 2 diabetes mellitus with diabetic peripheral angiopathy with gangrene; L03.115 Cellulitis of right lower limb; I89.0 Lymphedema, not elsewhere classified
CPT/HCPCS: 99212

== ENCOUNTER → 2019-04-06 | Outpatient (CLI) | payer MEDICARE ==
[~2019-04-06] MED LIST changes: -METO-370 PO; -METO-387 PO; +METO50TA7 PO; +MTP25TSR PO
[2019-04-06 17:01] LABS: CALCIUM 9.1 MG/DL (8.5-10.1); CREATININE SERUM 1.39 MG/DL (0.60-1.30); POTASSIUM 4.8 MMOL/L (3.6-5.0)
== END ==
LOC: HH 08:00
PROVIDERS: ATTEND Internal Medicine
DX: E11.22 Type 2 diabetes mellitus with diabetic chronic kidney disease (principal); I12.9 Hypertensive chronic kidney disease with stage 1 through stage 4 chronic kidney disease, or unspecified chronic kidney disease; N18.9 Chronic kidney disease, unspecified
CPT/HCPCS: 80048; 83735

== ENCOUNTER → 2019-04-09 | Outpatient (CLI) | payer MEDICARE | LOC: WOUNDCARE 10:54 | PROVIDERS: ATTEND Orthopaedic Surgery Hand Surgery | DX: E11.622 Type 2 diabetes mellitus with other skin ulcer (principal); L97.212 Non-pressure chronic ulcer of right calf with fat layer exposed; I87.331 Chronic venous hypertension (idiopathic) with ulcer and inflammation of right lower extremity; E66.01 Morbid (severe) obesity due to excess calories; I89.0 Lymphedema, not elsewhere classified | CPT/HCPCS: 11042; 11045 ==

== ENCOUNTER 2019-04-12 14:43 | Inpatient (IN) | payer MEDICARE ==
[~2019-04-12] VITALS: Ht 162.6 cm; Wt 136.2 kg
--- NOTE | 2019-04-12 15:19 | ED General ---
General Chief Complaint: Neurological Problems Stated Complaint: WEAKNESS/DIFF WALKING Nursing Triage Note: GENERALIZED WEAKNESS IN LEFT LEG X2 DAYS. Nursing Sepsis Screen: No Definite Risk History of Present Illness Date Seen by Provider: Apr 12, 2019 Time Seen by Provider: 15:00 Initial Comments 74-year-old female reports for weakness in both legs over the last 2 days, progressively getting worse. She is being treated for chronic wounds to the right lower extremity lymphedema in the left lower extremity with wound care and home health. She was admitted in June 2018 for sepsis and in December 2018 for cellulitis. She is on Eliquis for anticoagulation. Son is concerned about her care at home, it took 1 hour to get her from bed to bathroom to the van because of weakness and difficulty to mobility. He saw her last evening and believes she stayed in bed until 12:00 today, patient unsure if she ate last night but denies eating today. She was on minocycline for 4 weeks and that ended approximately 10 days ago. Timing/Duration: 3-4 Days Severity: Moderate Associated Systoms: No Denies Symptoms, No Chest Pain, No Cough, No Diaphoresis, No Fever/Chills, No Headaches, No Loss of Appetite, No Malaise, No Nausea/Vomiting, No Rash, No Seizure, No Shortness of Air, No Syncope; Weakness, Other (Chronic wound right LE) Allergies and Home Medications Allergies Coded Allergies: NSAIDS (Non-Steroidal Anti-Inflamma (Verified Allergy, Severe, BLOOD IN URINE, 06/23/18) celecoxib (Unverified Allergy, Severe, BLOOD IN URINE, 06/23/18) penicillin G (Verified Allergy, Unknown, HAS RECEIVED ANCEF W/O ISSUE, 10/13/15) Home Medications Acetaminophen 500 Mg Tablet, 1,000 MG PO Q4H PRN for PAIN-MILD, (Reported) Albuterol Sulfate 18 Gm Hfa.aer.ad, 2 PUFF INH Q4H PRN for SHORTNESS OF BREATH, (Reported) Amiodarone HCl 200 Mg Tablet, 200 MG PO 1200, (Reported) Apixaban 5 Mg Tablet, 5 MG PO 1200,2100, (Reported) Ascorbate Calcium 500 Mg Tablet, 500 MG PO DAILY, (Reported) Atorvastatin Calcium 40 Mg Tablet, 40 MG PO HS, (Reported) Calcium Carbonate 600 Mg Tablet, 600 MG PO DAILY, (Reported) Cholecalciferol (Vitamin D3) 2,000 Unit Capsule, 2,000 UNIT PO DAILY, (Reported) Cyanocobalamin 100 Mcg Tablet, 200 MCG PO DAILY, (Reported) Darbepoetin Felice in Polysorbat 40 Mcg/1 Ml Vial, 30 MCG IV EVERY 3 WEEKS, (Reported) Diphenhydramine HCl 25 Mg Capsule, 50 MG PO QID, (Reported) Fluticasone/Salmeterol 1 Each Blst.w.dev, 1 PUFF INH BID, (Reported) Folic Acid 1 Mg Tablet, 1 MG PO DAILY, (Reported) Furosemide 40 Mg Tablet, 60 MG PO DAILY, (Reported) TAKES 1 & 1/2 (40MG) TABLET Levofloxacin 750 Mg Tablet, 750 MG PO DAILY Prescribed by: JE WOODARD on 01/25/19 1202 Magnesium Citrate 125 Mg Capsule, 250 MG PO HS, (Reported) TAKES 2 (125MG) CAPSULES Metoprolol Succinate 50 Mg Tab.er.24h, 50 MG PO 1200, (Reported) Montelukast Sodium 10 Mg Tablet, 10 MG PO HS, (Reported) Potassium Chloride 10 Meq Tablet.er, 10 MEQ PO DAILY, (Reported) Tramadol HCl 50 Mg Tablet, 50-100 MG PO Q6H PRN for PAIN-MODERATE, (Reported) Patient Home Medication List Home Medication List Reviewed: Yes Review of Systems Review of Systems Constitutional: see HPI, malaise, weakness EENTM: see HPI, no symptoms reported Respiratory: no symptoms reported, see HPI Cardiovascular: see HPI, edema, other (vascular wounds to right LE) Gastrointestinal: no symptoms reported, see HPI Genitourinary: no symptoms reported, see HPI Musculoskeletal: no symptoms reported, see HPI Skin: no symptoms reported, see HPI Psychiatric/Neurological: No Symptoms Reported, See HPI Hematologic/Lymphatic: See HPI, Anemia (HGB 12.2 today) Immunological/Allergic: no symptoms reported, see HPI All Other Systems Reviewed Negative Unless Noted: Yes Past Bhyngxj-Nagujx-Bajgzi Hx Past Med/Social Hx: Reviewed Nursing Past Med/Soc Hx Patient Social History Alcohol Use: Denies Use Recreational Drug Use: No Smoking Status: Never a Smoker 2nd Hand Smoke Exposure: No Recent Foreign Travel: No Contact w/Someone Who Travel: No Recent Infectious Disease Expo: No Recent Hopitalizations: Yes (REHAB) Immunizations Up To Date Tetanus Booster (TDap): Unknown Date of Pneumonia Vaccine: Dec 23, 2012 Date of Influenza Vaccine: Jan 09, 2019 Seasonal Allergies Seasonal Allergies: No Past Medical History Respiratory: Yes Asthma, Sleep Apnea, COPD Currently Using CPAP: Yes Currently Using BIPAP: No Cardiac: Yes Atrial Fibrillation, High Cholesterol, Hypertension Neurological: No Female Reproductive Disorders: Denies Sexually Transmitted Disease: No HIV/AIDS: No Genitourinary: Yes Bladder Infection Gastrointestinal: Yes Hiatal Hernia Musculoskeletal: Yes Arthritis Endocrine: Yes Diabetes, Non-Insulin dep HEENT: No Hearing Impairment: Denies Cancer: No Melanoma Did You Recieve Any Treatments: No Psychosocial: No Integumentary: Yes (ULCERS) Blood Disorders: No Adverse Reaction/Blood Tranf: No Family Medical History Dementia 19 MOTHER Diabetes mellitus G8 SISTER Myocardial infarction 19 FATHER Neoplasm G8 SISTER No Pertinent Family Hx, Heart Disease a-fib in siblings Physical Exam Vital Signs Vital Signs - First Documented 04/12/19 14:47 Temp 37.6 Pulse 72 Resp 16 B/P (MAP) 141/78 (99) Pulse Ox 95 O2 Delivery Room Air Capillary Refill : Less Than 3 Seconds Height, Weight, BMI Height: 5'4.00" Weight: 309lbs. 14.0oz. 140.353156bb; 51.00 BMI Method:Stated General Appearance: No Apparent Distress, WD/WN Eyes: Bilateral Eye Normal Inspection, Bilateral Eye PERRL, Bilateral Eye EOMI HEENT: PERRL/EOMI, TMs Normal, Normal ENT Inspection, Pharynx Normal Neck: Full Range of Motion, Normal Inspection, Non Tender, Supple Respiratory: Chest Non Tender, Lungs Clear, Normal Breath Sounds Cardiovascular: Regular Rate, Rhythm, No Murmur Gastrointestinal: Normal Bowel Sounds, Non Tender, Soft Back: Normal Inspection, No CVA Tenderness, No Vertebral Tenderness Extremity: Pedal Edema, Slow Capillary Refill, Other (Right toes cooler than left, Cap Refil 5 sec bilat. ) Neurologic/Psychiatric: Alert, Oriented x3, No Motor/Sensory Deficits, Normal Mood/Affect Skin: Normal Color, Warm/Dry Comments Lymphadenopathy bilateral lower extremity. Non-healing wound to Right LE, from below knee to proximal foot. Dressing removed and culture obtained. Friable and bleeds easily, minimal tenderness. Sterile dressings reapplied. She has an Yonny wrap on her left lower extremity for chronic lymphedema. No wound to the left lower extremity. Focused Exam Lactate Level 04/12/19 15:31: Lactic Acid Level 1.30 Lactic Acid Level Laboratory Tests Test 04/12/19 15:31 Lactic Acid Level 1.30 MMOL/L (0.50-2.00) Progress/Results/Core Measures Suspected Sepsis Recent Fever Within 48 Hours: Yes Infection Criteria Present: None New/Unexplained Altered Menta: No Sepsis Screen: No Definite Risk SIRS Temperature: Pulse: 72 Respiratory Rate: 16 Laboratory Tests 04/12/19 15:31: White Blood Count 18.5H Blood Pressure 141 /78 Mean: 99 04/12/19 15:31: Lactic Acid Level 1.30 Laboratory Tests 04/12/19 15:31: Creatinine 1.35H, Platelet Count 249, Total Bilirubin 0.9 Results/Orders Lab Results Laboratory Tests Test 04/12/19 15:31 Range/Units White Blood Count 18.5 H 4.3-11.0 10^3/uL Red Blood Count 3.94 L 4.35-5.85 10^6/uL Hemoglobin 12.2 11.5-16.0 G/DL Hematocrit 37 35-52 % Mean Corpuscular Volume 94 80-99 FL Mean Corpuscular Hemoglobin 31 25-34 PG Mean Corpuscular Hemoglobin Concent 33 32-36 G/DL Red Cell Distribution Width 12.7 10.0-14.5 % Platelet Count 249 130-400 10^3/uL Mean Platelet Volume 8.8 7.4-10.4 FL Neutrophils (%) (Auto) 88 H 42-75 % Lymphocytes (%) (Auto) 4 L 12-44 % Monocytes (%) (Auto) 8 0-12 % Eosinophils (%) (Auto) 0 0-10 % Basophils (%) (Auto) 0 0-10 % Neutrophils # (Auto) 16.3 H 1.8-7.8 X 10^3 Lymphocytes # (Auto) 0.7 L 1.0-4.0 X 10^3 Monocytes # (Auto) 1.5 H 0.0-1.0 X 10^3 Eosinophils # (Auto) 0.0 0.0-0.3 10^3/uL Basophils # (Auto) 0.0 0.0-0.1 10^3/uL Neutrophils % (Manual) 92 % Lymphocytes % (Manual) 5 % Monocytes % (Manual) 2 % Eosinophils % (Manual) 0 % Basophils % (Manual) 0 % Band Neutrophils 1 % Blood Morphology Comment NORMAL Sodium Level 137 135-145 MMOL/L Potassium Level 4.4 3.6-5.0 MMOL/L Chloride Level 99 98-107 MMOL/L Carbon Dioxide Level 22 21-32 MMOL/L Anion Gap 16 H 5-14 MMOL/L Blood Urea Nitrogen 26 H 7-18 MG/DL Creatinine 1.35 H 0.60-1.30 MG/DL Estimat Glomerular Filtration Rate 38 BUN/Creatinine Ratio 19 Glucose Level 136 H 70-105 MG/DL Lactic Acid Level 1.30 0.50-2.00 MMOL/L Calcium Level 9.3 8.5-10.1 MG/DL Corrected Calcium 9.6 8.5-10.1 MG/DL Magnesium Level 2.1 1.6-2.4 MG/DL Total Bilirubin 0.9 0.1-1.0 MG/DL Aspartate Amino Transf (AST/SGOT) 24 5-34 U/L Alanine Aminotransferase (ALT/SGPT) 11 0-55 U/L Alkaline Phosphatase 112 40-136 U/L Total Protein 8.0 6.4-8.2 GM/DL Albumin 3.6 3.2-4.5 GM/DL Micro Results Microbiology 04/12/19 Influenza Types A,B Antigen (ASHOK) - Final, Complete My Orders Orders - LINDA BROOKS Blood Culture (04/12/19 15:20) Wound Culture (04/12/19 15:20) Lactic Acid Analyzer (04/12/19 15:20) Influenza A And B Antigens (04/12/19 15:20) Ed Iv/Invasive Line Start (04/12/19 16:13) Ns Iv 1000 Ml (Sodium Chloride 0.9%) (04/12/19 16:13) Vancomycin Injection (Vancomycin Injecti (04/12/19 17:00) Vital Signs/I&O 04/12/19 14:47 Temp 37.6 Pulse 72 Resp 16 B/P (MAP) 141/78 (99) Pulse Ox 95 O2 Delivery Room Air Capillary Refill : Less Than 3 Seconds Blood Pressure Mean: 99 Progress Note : Time: 15:00 Progress Note Patient seen and evaluated, culture obtained from right lower extremity wound, will get labs and UA. Patient had a 99.2 temperature, will obtain and flu swab as well. She did obtain a flu vaccine this year. 1600 white blood cell count 18.5, Lactic acid 1.3. Awaiting UA. NS 1 liter per IV. [address] Woodard, agreed with plans for admission. Vancomycin 1 g IV. 1700 will obtain chest x-ray one view. Departure Impression Primary Impression: Obesity Qualified Codes: E66.01 - Morbid (severe) obesity due to excess calories; Z68.43 - Body mass index (BMI) 50.0-59.9, adult Additional Impressions: Chronic wound of extremity Non-healing ulcer of right ankle Qualified Codes: L97.311 - Non-pressure chronic ulcer of right ankle limited to breakdown of skin Physical deconditioning Heart failure Qualified Codes: I50.9 - Heart failure, unspecified Disposition: ADMITTED INPATIENT Condition: Stable Admissions Decision to Admit Reason: Admit from ER (General) Decision to Admit/Date: Apr 12, 2019 Time/Decision to Admit Time: 16:30 Departure-Patient Inst. Referrals: JOHN MCCARTNEY MD (PCP/Family) Primary Care Physician Copy Copies To 1: JOHN MCCARTNEY MD, AMY ARNP Apr 12, 2019 15:19
[2019-04-12 15:43] LABS: BASOPHILS % (AUTO) 0 % (0-10); EOSINOPHILS % (AUTO) 0 % (0-10); HEMATOCRIT 37 % (35-52); HEMOGLOBIN 12.2 G/DL (11.5-16.0); LYMPHOCYTES # (AUTO) 0.7 X 10^3 (1.0-4.0); LYMPHOCYTES % (AUTO) 4 % (12-44); MEAN CORPUSCULAR HEMOGLOBIN 31 PG (25-34); MEAN CORPUSCULAR HGB CONC 33 G/DL (32-36); MEAN CORPUSCULAR VOLUME 94 FL (80-99); MEAN PLATELET VOLUME 8.8 FL (7.4-10.4); MONOCYTES # (AUTO) 1.5 X 10^3 (0.0-1.0); MONOCYTES % (AUTO) 8 % (0-12); NEUTROPHILS # (AUTO) 16.3 X 10^3 (1.8-7.8); NEUTROPHILS % (AUTO) 88 % (42-75); PLATELET COUNT 249 10^3/uL (130-400); RED CELL DISTRIBUTION WIDTH 12.7 % (10.0-14.5); WHITE BLOOD COUNT 18.5 10^3/uL (4.3-11.0)
[2019-04-12 15:58] LABS: ALBUMIN 3.6 GM/DL (3.2-4.5); BILIRUBIN,TOTAL 0.9 MG/DL (0.1-1.0); CALCIUM 9.3 MG/DL (8.5-10.1); CREATININE SERUM 1.35 MG/DL (0.60-1.30); MAGNESIUM 2.1 MG/DL (1.6-2.4); POTASSIUM 4.4 MMOL/L (3.6-5.0)
[2019-04-12 16:03] LABS: BAND NEUTROPHILS 1 %; BASOPHILS % (MANUAL) 0 %; EOSINOPHILS % (MANUAL) 0 %; LYMPHOCYTES % (MANUAL) 5 %; MONOCYTES % (MANUAL) 2 %; NEUTROPHILS % (MANUAL) 92 %; RBC MORPH NORMAL
[2019-04-12] MEDS ORDERED: NS IV 1000 ML 1,000 ML IV SCH (16:13)
[2019-04-12] MEDS ORDERED: VANCOMYCIN INJECTION 1,000 MG in NS (IVPB) 250 ML IV ONE (17:00)
[2019-04-12 18:47] VITALS: BP 153/74
--- NOTE | 2019-04-12 19:38 | Diagnostic Imaging Report ---
EXAM: CHEST 1 VIEW, AP/PA ONLY INDICATION: Weakness. Cough. COMPARISON: 07/10/2018. FINDINGS: Stable cardiomegaly and pulmonary vascular congestion. Increasing prominence of the right hilum. Right IJ tunneled port CVC tip mid SVC. The right costophrenic angle is not entirely included on the uycio-ch-srmu. No pneumothorax. IMPRESSION: 1. Stable cardiomegaly and pulmonary vascular congestion. 2. Increasing prominence of the right hilum may be due to the pulmonary vascularity. However, lymphadenopathy or mass cannot be excluded. This could be further investigated with contrast-enhanced CT. Dictated by: Dictated on workstation # [id number]
[2019-04-12 20:00] VITALS: BP 150/70
[2019-04-12] MEDS ORDERED: ACETAMINOPHEN 325 MG TABLET PO PRN (20:00)
[2019-04-12] MEDS ORDERED: ONDANSETRON 4 MG/2 ML (SDV) Z0FRAN IVP PRN ×2 (20:00→20:15)
[2019-04-12] MEDS ORDERED: VANCOMYCIN 1 GM/NS 250 ML IVPB IV ONE ×2 (20:15)
[2019-04-12] MEDS: NS IV 1000 ML 1,000 ML IV SCH (20:51)
[2019-04-12] MEDS ORDERED: NS (IVPB) 250 ML ONE (21:55)
[2019-04-12] MEDS ORDERED: VANCOMYCIN 1000 MG/VIAL ONE (21:55)
[2019-04-12] MEDS: APIXABAN 5 MG (ELIQUIS) TABLET PO SCH (22:14)
[2019-04-12 23:20] VITALS: BP 154/74
[2019-04-13] MEDS ORDERED: RT-ALBUTEROL/IPRATROPIUM 3 ML (DUONEB) VIAL INH PRN ×2 (01:15→12:00)
[2019-04-13 04:13] VITALS: BP 161/75
[2019-04-13 06:26] LABS: HEMOGLOBIN 10.6 G/DL (11.5-16.0); MEAN PLATELET VOLUME 9.1 FL (7.4-10.4); RED CELL DISTRIBUTION WIDTH 12.8 % (10.0-14.5); WHITE BLOOD COUNT 14.8 10^3/uL (4.3-11.0)
[2019-04-13] MEDS: inSUlin ASPART (NovoLOG) 1 UNIT/0.01 ML (CHARGE PER UNIT) SC SCH ×4 (06:47→21:22)
[2019-04-13 06:48] LABS: BILIRUBIN,TOTAL 0.7 MG/DL (0.1-1.0); CALCIUM 8.6 MG/DL (8.5-10.1); CREATININE SERUM 1.05 MG/DL (0.60-1.30); POTASSIUM 3.9 MMOL/L (3.6-5.0); TOTAL PROTEIN 6.7 GM/DL (6.4-8.2)
[2019-04-13 07:00] LABS: BILIRUBIN,URINE NEGATIVE (NEGATIVE); CLARITY,URINE SL CLOUDY; COLOR,URINE YELLOW; GLUCOSE, URINE (UA) NEGATIVE (NEGATIVE); KETONES,URINE NEGATIVE (NEGATIVE); LEUKOCYTE ESTERASE ,URINE NEGATIVE (NEGATIVE); NITRITE,URINE NEGATIVE (NEGATIVE); PROTEIN,URINE 1+ (NEGATIVE)
[2019-04-13 07:10] LABS: BACTERIA,URINE LARGE /HPF
[2019-04-13] MEDS ORDERED: CEFEPIME INJECTION 2,000 MG in WATER (STERILE) FOR INJECTION 20 ML IV ONE (07:30)
[2019-04-13 08:00] VITALS: BP 161/72
[2019-04-13 08:39] VITALS: BP 161/75
[2019-04-13] MEDS ORDERED: POLYETHYLENE GLYCOL 17 GM (MIRALAX) PACK PO PRN (10:00)
[2019-04-13] MEDS ORDERED: ONDANSETRON 4 MG (ZOFRAN) ORAL DISSOLVE TAB PO PRN (10:00)
[2019-04-13] MEDS ORDERED: BISACODYL 10 MG SUPP (DULCOLAX) PR PRN (10:00)
[2019-04-13] MEDS ORDERED: ANTACID SUSP 30 ML UDC (MYLANTA) PO PRN (10:00)
[2019-04-13] MEDS ORDERED: MELATONIN 3 MG TABLET PO PRN (10:00)
[2019-04-13] MEDS: APIXABAN 5 MG (ELIQUIS) TABLET PO SCH ×3 (10:22→21:28)
--- NOTE | 2019-04-13 11:19 | Consultation-Cardiology ---
HPI-Cardiology Cardiology Consultation Date of Consultation 04/13/19 Date of Admission Time Seen by Provider: 10:00 Indication: chronic non healing wound RLE, generalized weakness. HPI Patient is a 74 y/o female with history of PAF, lymphedema with chronic nonhealing wound to RLE. Presented to the ER with complaints of generalized weakness and progressive weakness to BLE extremities for the past couple days. Denies any chest pain, dyspnea, dizziness or lightheadedness. 74-year-old lady with history of paroxysmal atrial fibrillation, lymphedema with chronic nonhealing wounds in her legs. Recently started to have increasing weakness and loss of energy. Had pain in her right knee, was unable to ambulate and was admitted. Workup is in progress. She denied any chest pain. No palpitation Home Medications & Allergies Allergies: Coded Allergies: NSAIDS (Non-Steroidal Anti-Inflamma (Verified Allergy, Severe, BLOOD IN URINE, 06/23/18) celecoxib (Unverified Allergy, Severe, BLOOD IN URINE, 06/23/18) penicillin G (Verified Allergy, Unknown, HAS RECEIVED ANCEF W/O ISSUE, 10/13/15) Home Medication List Reviewed: Yes AHR-Ijtkps-Dnjcxg Hx Patient Social History Marital Status: single Employed/Student: retired Alcohol Use: Denies Use Recreational Drug Use: No Smoking Status: Never a Smoker 2nd Hand Smoke Exposure: No Recent Foreign Travel: No Recent Infectious Disease Expo: No Recent Hopitalizations: Yes (REHAB) Physical Abuse Screen: No Sexual Abuse: No Immunizations Up To Date Tetanus Booster (TDap): Unknown Date of Pneumonia Vaccine: Dec 23, 2012 Date of Influenza Vaccine: Dec 24, 2019 Past Medical History PAF, HTN, Lymphedema Family Medical History Significant Family History: Heart Disease Family History: Dementia 19 MOTHER Diabetes mellitus G8 SISTER Myocardial infarction 19 FATHER Neoplasm G8 SISTER Review of Systems-General Review of Systems Constitutional: see HPI, malaise, weakness EENTM: see HPI, no symptoms reported; No blurred vision, No double vision Respiratory: no symptoms reported, see HPI; No cough, No dyspnea on exertion Cardiovascular: see HPI, edema; No palpitations; other (vascular wounds to right LE) Gastrointestinal: no symptoms reported, see HPI Genitourinary: no symptoms reported, see HPI Musculoskeletal: no symptoms reported, see HPI Skin: no symptoms reported, see HPI Psychiatric/Neurological: No Symptoms Reported, See HPI All Other Systems Reviewed Negative Unless Noted: Yes Reviewed Test Results Reviewed Test Results Lab Laboratory Tests 04/12/19 15:31: White Blood Count 18.5H, Red Blood Count 3.94L, Hemoglobin 12.2, Hematocrit 37, Mean Corpuscular Volume 94, Mean Corpuscular Hemoglobin 31, Mean Corpuscular Hemoglobin Concent 33, Red Cell Distribution Width 12.7, Platelet Count 249, Mean Platelet Volume 8.8, Neutrophils (%) (Auto) 88H, Lymphocytes (%) (Auto) 4L, Monocytes (%) (Auto) 8, Eosinophils (%) (Auto) 0, Basophils (%) (Auto) 0, Neutrophils # (Auto) 16.3H, Lymphocytes # (Auto) 0.7L, Monocytes # (Auto) 1.5H, Eosinophils # (Auto) 0.0, Basophils # (Auto) 0.0, Neutrophils % (Manual) 92, Lymphocytes % (Manual) 5, Monocytes % (Manual) 2, Eosinophils % (Manual) 0, Basophils % (Manual) 0, Band Neutrophils 1, Blood Morphology Comment NORMAL, So dium Level 137, Potassium Level 4.4, Chloride Level 99, Carbon Dioxide Level 22, Anion Gap 16H, Blood Urea Nitrogen 26H, Creatinine 1.35H, Estimat Glomerular Filtration Rate 38, BUN/Creatinine Ratio 19, Glucose Level 136H, Lactic Acid Level 1.30, Calcium Level 9.3, Corrected Calcium 9.6, Magnesium Level 2.1, Total Bilirubin 0.9, Aspartate Amino Transf (AST/SGOT) 24, Alanine Aminotransferase (ALT/SGPT) 11, Alkaline Phosphatase 112, Total Protein 8.0, Albumin 3.6 04/12/19 22:17: Glucometer 155H 04/13/19 05:55: White Blood Count 14.8H, Red Blood Count 3.53L, Hemoglobin 10.6L, Hematocrit 33L , Mean Corpuscular Volume 94, Mean Corpuscular Hemoglobin 30, Mean Corpuscular Hemoglobin Concent 32, Red Cell Distribution Width 12.8, Platelet Count 226, Mean Platelet Volume 9.1, Sodium Level 136, Potassium Level 3.9, Chloride Level 102, Carbon Dioxide Level 23, Anion Gap 11, Blood Urea Nitrogen 20H, Creatinine 1.05, Estimat Glomerular Filtration Rate 51, BUN/Creatinine Ratio 19, Glucose Level 104, Calcium Level 8.6, Corrected Calcium 9.4, Total Bilirubin 0.7, Aspartate Amino Transf (AST/SGOT) 22, Alanine Aminotransferase (ALT/SGPT) 13, Alkaline Phosphatase 103, Total Protein 6.7, Albumin 3.0L 04/13/19 06:14: Glucometer 107 04/13/19 06:50: Urine Color YELLOW, Urine Clarity SL CLOUDY, Urine pH 5.0, Urine Specific [place] >=1.030, Urine Protein 1+H, Urine Glucose (UA) NEGATIVE, Urine Ketones NEGATIVE, Urine Nitrite NEGATIVE, Urine Bilirubin NEGATIVE, Urine Urobilinogen 0.2, Urine Leukocyte Esterase NEGATIVE, Urine RBC (Auto) 1+H, Urine RBC 2-5H, Urine WBC NONE, Urine Squamous Epithelial Cells 2-5, Urine Crystals NONE, Urine Bacteria LARGEH, Urine Casts PRESENT, Urine Red Blood Cell Casts 2-5H, Urine Mucus SMALLH, Urine Culture Indicated NO 04/13/19 06:55: Thyroid Stimulating Hormone (TSH) 0.96 04/13/19 11:02: Glucometer 167H Microbiology 04/12/19 Influenza Types A,B Antigen (ASHOK) - Final, Complete 04/12/19 Gram Stain, Resulted Pending 04/12/19 Wound Culture - Preliminary, Resulted Staphylococcus aureus Physical Exam Physical Exam Vital Signs Vital Signs - First Documented 04/12/19 04/13/19 14:47 08:39 Temp 37.6 Pulse 72 Resp 16 B/P (MAP) 141/78 (99) Pulse Ox 95 O2 Delivery Room Air FiO2 21 Capillary Refill : Less Than 3 Seconds Height, Weight, BMI Height: 5'4.00" Weight: 309lbs. 14.0oz. 140.533408zd; 51.51 BMI Method:Stated General Appearance: No Apparent Distress, WD/WN Eyes: Bilateral Eye Normal Inspection, Bilateral Eye PERRL, Bilateral Eye EOMI HEENT: PERRL/EOMI, TMs Normal, Normal ENT Inspection, Pharynx Normal Neck: Full Range of Motion, Normal Inspection, Non Tender, Supple Respiratory: Chest Non Tender, Lungs Clear, Normal Breath Sounds Cardiovascular: Regular Rate, Rhythm, No Murmur Gastrointestinal: Normal Bowel Sounds, Non Tender, Soft Back: Normal Inspection, No CVA Tenderness, No Vertebral Tenderness Extremity: Pedal Edema, Slow Capillary Refill, Other (Right toes cooler than left, Cap Refil 5 sec bilat. ) Neurologic/Psychiatric: Alert, Oriented x3, No Motor/Sensory Deficits, Normal Mood/Affect Skin: Normal Color, Warm/Dry A/P-Cardiology Admission Diagnosis BLE weakness, nonhealing wound RLE PAF HTN HLP Assessment/Plan Increased weakness to BLE, complaining of increased right knee pain, management per PCP. Paroxysmal atrial fibrillation-History of CHRISTOS with successful cardioversion January 2018. She is maintained on amiodarone, Toprol and Eliquis. Continue to monitor. History of chest pain, no recent episodes of chest pain, however she has multiple risk factors for underlying coronary artery disease. Was scheduled for stress test as outpatient in January 2018, but test was not done. Consider stress test as outpatient. Nonhealing wound to RLE, follows with wound care. CTA done Nov 2017 showed less than optimal as the aorta and its branches not optimally opacified. There was no hemodynamically significant stenosis identified but the trifurcation arteries were not well imaged. There appears to be only a single vessel (posterior tibial artery runoff to each lower extremity). Wound culture shows staph aureus Hypertension, restart home BP medications and continue to monitor. Hyperlipidemia, monitored as outpatient Iron Deficiency Anemia, followed by Dr. Roblero and Dr. Gaines Diabetes mellitus, followed and managed by primary care physician. Bronchial asthma. COPD, obstructive sleep apnea using C Pap machine. Nonobstructive carotid artery stenosis-carotid duplex done Jan 2018. Continue to monitor. Thank you for allowing us to participate in the management of Ms. Vasquez. This is Amberly Tucker PA-C, as a scribe for Dr. Whittington. Patient was seen and evaluated with Amberly, examination performed, management plan was discussed, agree with the current scribed note, I made few changes to the note using Italic font Patient was seen at bedside, laying down comfortably, having pain in her right leg, pain in the right knee Lungs were clear to auscultation bilaterally, heart is regular Significant edema in her lower extremities and wounds on the feet Having x-ray done to her right knee, managed by primary care team Blood cultures were done, questionable underlying infection Clinical Quality Measures DVT/VTE Risk/Contraindication: Risk Factor Score Per Nursin RFS Level Per Nursing on Admit: 4+=Very High AMBERLY BRADY Apr 13, 2019 11:19 am ARIANA WHITTINGTON MD Apr 13, 2019 11:50 am
--- NOTE | 2019-04-13 11:31 | Physical Therapy Evaluation ---
PT Evaluation-General Medical Diagnosis Admission Date Apr 12, 2019 at 16:58 Medical Diagnosis: lympnedema bilateral LE/chronic right LE wound Onset Date: Apr 12, 2019 Therapy Diagnosis Therapy Diagnosis: generalized weakness/debility Height/Weight Height (Feet): 5 Height (Inches): 4.00 Weight (Pounds): 309 Weight (Ounces): 14.0 Precautions Precautions/Isolations: Fall Prevention Weight Bear Status Right Lower Extremity: Right Weight Bearing/Tolerated Left Lower Extremity: Left Weight Bearing/Tolerated Referral Physician: Zay Reason for Referral: Evaluation/Treatment Medical History Pertinent Medical History: Atrial Fib, DM, HTN Additional Medical History morbid obesity Current History ER with weakness/difficulty walking x 2 days Reviewed History: Yes Social History Home: Single Level Current Living Status: Alone Entry Into Home: Ramp Prior Prior Level of Function SCALE: Activities may be completed with or without assistive devices. 9-Nuwjwmicot-kidhuaa completes the activity by him/herself with no assistance from a helper. 5-Set-up or Clean-up Assistance-helper sets up or cleans up; patient completes activity. [place] assists only prior to or following the activity. 4-Supervision or Touching Assistance-helper provides verbal cues and/or touching/steadying and/or contact guard assistance as patient completes activity. Assistance may be provided throughout the activity or intermittently. 3-Partial/Moderate Assistance-helper does LESS THAN HALF the effort. [place] lifts, holds or supports trunk or limbs, but provides less than half the effort. 2-Substantial/Maximal Assistance-helper does MORE THAN HALF the effort. [place] lifts or holds trunk or limbs and provides more than half the effort. 4-Zassytvzr-xfgals does ALL the effort. Patient does none of the effort to complete the activity. Or, the assistance of 2 or more helpers is required for the patient to complete the activity. If activity was not attempted, code reason: 7-Patient Refused. 9-Not Applicable-not attempted and the patient did not perform the activity before the current illness, exacerbation or injury. 10-Not Attempted due to Environmental Limitations-(lack of equipment, weather restraints, etc.). 88-Not Attempted due to Medical Conditions or Safety Concerns. Bed Mobility: 6 Transfers (B,C,W/C): 6 Gait: 6 Stairs: 9 Indoor Mobility (Ambulation): Independent Prior Device Use: cane PT Evaluation-Current Subjective Patient reports 10/10 right LE pain with touch and movement. Pain Numeric Pain Scale: 10-Worst Possible Pain Location: Right Location Body Site: Thigh Pain Description: Acute Objective Patient Orientation: Normal For Age Attachments: IV ROM/Strength ROM Lower Extremities limited ROM due to pain and morbid obesity Strength Lower Extremities unable to test due to patient intolerance to movement or touch Integumentary/Posture Integumentary refer to nursing notes Bowel Incontinence: No Bladder Incontinence: No Neuromuscular (Tone, Coordination, Reflexes) diminished due to inactivity Sensory Vision: Wears Glasses Hearing: Functional Sensation Right Lower Extremit: Intact Sensation Left Lower Extremity: Intact Transfers attempted to sit EOB, however, patient limited due to right LE pain and all movement Assessment/Needs 74 y.o. female, declined mobility on this date with PT assist due to right LE pain and fear. PT to increase activity as patient's pain improves. Rehab Potential: Guarded Post Rehab Potential-Barriers: compliance PT Short Term Goals Short Term Goals Time Frame: Apr 24, 2019 Roll Left & Right: 3 Sit to lyin Lying to sitting on side of be: 3 Sit to stand: 3 Chair/ykb-sa-ekkre transfer: 3 Toilet transfer: 3 Walk 10 feet: 3 PT Post Partum Nurse Goals Prison Goals PT Prison Goals Time Frame: May 02, 2019 Roll Left & Right (QC): 5 Sit to Lying (QC): 5 Lying-Sitting on Side/Bed(QC): 5 Sit to Stand (QC): 5 Chair/Pov-dr-Unjby Xfer(QC): 5 Toilet Transfer (QC): 5 Does the Patient Walk: Yes Walk 10 feet (QC): 5 Walk 50ft with 2 Turns (QC): 5 PT Plan Problem List Problem List: Activity Tolerance, Functional Strength, Safety, Balance, Gait, Transfer, Bed Mobility, ROM, Other (right LE pain) Treatment/Plan Treatment Plan: Continue Plan of Care Treatment Plan: Bed Mobility, Education, Functional Activity Yimi, Functional Strength, Gait, Safety, Therapeutic Exercise, Transfers Treatment Duration: May 02, 2019 Frequency: 5 times per week Estimated Hrs Per Day: .25 hour per day Patient and/or Family Agrees t: Yes Time/GCodes Time In: 1005 Time Out: 1015 Total Billed Treatment Time: 10 Total Billed Treatment 1 visit EVLowC 10 min KWASI DISLA PT Apr 13, 2019 11:31
[2019-04-13] MEDS ORDERED: CHOL200059 PO (11:32)
[2019-04-13] MEDS ORDERED: POTA10TA PO (11:32)
[2019-04-13 12:00] VITALS: BP 170/81
[2019-04-13] MEDS ORDERED: CEFEPIME INJECTION 1,000 MG in WATER (STERILE) FOR INJECTION 10 ML IV SCH ×4 (12:00)
[2019-04-13] MEDS: RT-ALBUTEROL/IPRATROPIUM 3 ML (DUONEB) VIAL INH SCH ×4 (12:00→21:31)
--- NOTE | 2019-04-13 13:07 | History & Physical-Hospitalist ---
History of Present Illness HPI/Chief Complaint Felipa Vasquez is a 74-year-old female with PMH HTN, AFib on Eliquis, T2DM, obesity, ADITI on CPAP, who presented with right leg pain. She has a chronic right lower extremity wound. She has been following with wound care. She has been off and on antibiotics for a long period of time. She was last on minocycline for 1 month and has been off antibiotics for one week at this time. She reports that she has been getting more weak at home. She says that she tried to stand up and had a shooting pain of her right leg. She does not report any fevers or chills at home. She denies any shortness of breath or chest pain. She denies any abdominal pain, nausea, vomiting, diarrhea, or dysuria. Source: patient Exam Limitations: no limitations Date Seen 04/13/19 Time Seen by a Provider: 09:10 Attending Physician Je Woodard MD PCP Liu Roblero MD Referring Physician Date of Admission Apr 12, 2019 at 16:58 Home Medications & Allergies Home Medications Reviewed patient Home Medication Reconciliation performed by pharmacy medication reconciliations cost recovery technician and/or nursing. Patients Allergies have been reviewed. Allergies Allergies Coded Allergies NSAIDS (Non-Steroidal Anti-Inflamma (Verified Allergy, Severe, BLOOD IN URINE, 06/23/18) celecoxib (Unverified Allergy, Severe, BLOOD IN URINE, 06/23/18) penicillin G (Verified Allergy, Unknown, HAS RECEIVED ANCEF W/O ISSUE, 10/13/15) Past Gosvcfp-Mjydpc-Suvycc Hx Past Med/Social Hx: Reviewed Nursing Past Med/Soc Hx Patient Social History Marrital Status: single Employed/Student: retired Alcohol Use: Denies Use Recreational Drug Use: No Smoking Status: Never a Smoker 2nd Hand Smoke Exposure: No Physical Abuse Screen: No Sexual Abuse: No Recent Foreign Travel: No Contact w/other who traveled: No Recent Hopitalizations: Yes (REHAB) Recent Infectious Disease Expo: No Immunizations Up To Date Tetanus Booster (TDap): Unknown Date of Pneumonia Vaccine: Dec 23, 2012 Date of Influenza Vaccine: Dec 24, 2019 Seasonal Allergies Seasonal Allergies: No Past Medical History Respiratory: Asthma, Sleep Apnea Currently Using CPAP: Yes Currently Using BIPAP: No Cardiac: Atrial Fibrillation, High Cholesterol, Hypertension Sexually Transmitted Disease: No HIV/AIDS: No Female Reproductive Disorders: Denies Genitourinary: Bladder Infection Gastrointestinal: Hiatal Hernia Musculoskeletal: Arthritis Endocrine: Diabetes, Non-Insulin dep Hearing Impairment: Denies Cancer: Melanoma Did You Recieve Any Treatments: No History of Blood Disorders: No Adverse Reaction to Blood Hernández: No Family History Dementia 19 MOTHER Diabetes mellitus G8 SISTER Myocardial infarction 19 FATHER Neoplasm G8 SISTER Heart Disease a-fib in siblings Review of Systems Constitutional: weakness EENTM: no symptoms reported Respiratory: no symptoms reported Cardiovascular: no symptoms reported Gastrointestinal: no symptoms reported Genitourinary: no symptoms reported Musculoskeletal: muscle pain, muscle weakness Skin: other (nonhealing wound of right lower extremity) Psychiatric/Neurological: No Symptoms Reported Physical Exam Physical Exam Vital Signs Vital Signs - First Documented 04/12/19 04/13/19 14:47 08:39 Temp 37.6 Pulse 72 Resp 16 B/P (MAP) 141/78 (99) Pulse Ox 95 O2 Delivery Room Air FiO2 21 Capillary Refill : Less Than 3 Seconds Height, Weight, BMI Height: 5'4.00" Weight: 309lbs. 14.0oz. 140.303990rk; 51.51 BMI Method:Stated General Appearance: No Apparent Distress, Obese HEENT: PERRL/EOMI, Pharynx Normal Neck: Normal Inspection, Supple Respiratory: Lungs Clear, Normal Breath Sounds, No Respiratory Distress Cardiovascular: Regular Rate, Rhythm, No Edema, No Murmur Gastrointestinal: Normal Bowel Sounds, Non Tender, Soft Extremity: Other (lymphedema, right lower extremity wound, right knee warmth and pain with both passive and active motion) Neurologic/Psychiatric: Alert, Oriented x3, No Motor/Sensory Deficits, Normal Mood/Affect Skin: Other (right lower extremity wound) Results Results/Procedures Labs Laboratory Tests 04/12/19 15:31 04/13/19 05:55 Patient resulted labs reviewed. Imaging: Reviewed Imaging Report Assessment/Plan Admission Diagnosis Sepsis Admission Status: Inpatient Order (span 2 midnights) Reason for Inpatient Admission: sepsis requiring IV antibiotics and further evaluation Assessment and Plan Sepsis Nonhealing wound of right lower extremity Possible osteomyelitis SIRS+ with leukocytosis and fever Septic source cellulitis versus osteomyelitis started on vancomycin and cefepime History of both staph aureus and Pseudomonas wound infections Wound culture positive for staph aureus, susceptibilities pending ESR and CRP both markedly elevated Obtain x-rays of right lower extremity Continue vancomycin, discontinue cefepime Consult wound care Type II diabetes mellitus Sliding scale insulin Hypertension Paroxysmal atrial fibrillation Hyperlipidemia Continue home meds DVT prophylaxis: Already receiving therapeutic anticoagulation Diagnosis/Problems Diagnosis/Problems (1) Sepsis Status: Acute (2) Morbid obesity Status: Chronic (3) T2DM (type 2 diabetes mellitus) Status: Chronic (4) Non-healing ulcer of right ankle Status: Chronic Qualifiers: Non-pressure ulcer stage: limited to breakdown of skin Qualified Codes: L97.311 - Non-pressure chronic ulcer of right ankle limited to breakdown of skin (5) Chronic wound of extremity Status: Chronic Clinical Quality Measures DVT/VTE Risk/Contraindication: Risk Factor Score Per Nursin RFS Level Per Nursing on Admit: 4+=Very High JE WOODARD MD Apr 13, 2019 13:07
[2019-04-13] MEDS ORDERED: ONDANSETRON 4 MG/2 ML (SDV) Z0FRAN IVP PRN (14:15)
[2019-04-13] MEDS: NS IV 1000 ML 1,000 ML IV SCH (14:52)
--- NOTE | 2019-04-13 15:11 | Diagnostic Imaging Report ---
INDICATION: Chronic wound to the right leg. TIME OF EXAM: 2:15 PM FINDINGS: Frontal and lateral views of the right tibia and fibula were obtained. There is chronic changes of the right knee, described on knee report. Tibia and fibula appear to be intact. No bony destructive changes or fractures are seen. There are some soft tissue calcifications. Ankle mortise is maintained. There is a large plantar calcaneal spur. No soft tissue gas is seen. IMPRESSION: Chronic changes. No acute abnormality is detected. Dictated by: Dictated on workstation # [id number]
--- NOTE | 2019-04-13 15:29 | Diagnostic Imaging Report ---
INDICATION: Chronic wound. This study is to evaluate for osteomyelitis. TIME OF EXAMINATION: 2:15 PM. FINDINGS: The overall quality is limited due to patient body habitus. There are severe tricompartmental degenerative changes with joint space narrowing and marginal spurring. There are multiple corticated osseous densities in the suprapatellar location as well as in the infrapatellar location. No definite fracture, dislocation, or significant effusion is seen. There may be a small joint effusion. No bony destructive changes are identified to suggest osteomyelitis. No soft tissue gas is seen. IMPRESSION: Severe degenerative changes to the right knee. No acute abnormality is detected. Dictated by: Dictated on workstation # [id number]
[2019-04-13 16:12] VITALS: BP 177/80
[2019-04-13] MEDS: VANCOMYCIN INJECTION 2,000 MG in NS IV 500 ML 500 ML IV SCH (17:00)
[2019-04-13] MEDS ORDERED: VANCOMYCIN INJECTION 1,000 MG in NS (IVPB) 250 ML IV SCH (18:00)
[2019-04-13] MEDS: CEFEPIME INJECTION 1,000 MG in WATER (STERILE) FOR INJECTION 10 ML IV SCH ×2 (18:02→23:39)
[2019-04-13] MEDS: ACETAMINOPHEN 325 MG TABLET PO PRN (18:07)
[2019-04-13 20:00] VITALS: BP 173/74
[2019-04-13] MEDS ORDERED: NON-FORMULARY MEDICATION 1 EA EA (Fluticasone/Salmeterol (Advair 250-50 Diskus) 1 PUFF) INH SCH (21:00)
[2019-04-13] MEDS ORDERED: meTOprolol TARTRATE 50 MG (LOPRESSOR) TAB ONE (21:22)
[2019-04-13] MEDS ORDERED: AMIODARONE 200 MG (CORDARONE) TAB ONE (21:22)
[2019-04-13] MEDS: DOCUSATE SODIUM 100 MG (COLACE) CAP PO SCH (21:27)
[2019-04-13] MEDS: SENNOSIDES 8.6 MG (SENOKOT) TAB PO SCH (21:27)
[2019-04-13] MEDS: MONTELUKAST 10 MG (SINGULAIR) TAB PO SCH (21:28)
[2019-04-13] MEDS: AMIODARONE 200 MG (CORDARONE) TAB PO SCH (21:29)
[2019-04-13] MEDS: meTOproloL SUCCINATE 50 MG (TOPROL XL) TAB PO SCH (21:29)
[2019-04-13] MEDS: RT-ADVAIR HFA 115/21 MCG PER PUFF IH SCH (21:31)
[2019-04-14] VITALS: BP 180/84
[2019-04-14] MEDS: RT-ALBUTEROL/IPRATROPIUM 3 ML (DUONEB) VIAL INH SCH ×7 (01:43→21:27)
[2019-04-14 03:50] VITALS: BP 185/75
[2019-04-14] MEDS: CEFEPIME INJECTION 1,000 MG in WATER (STERILE) FOR INJECTION 10 ML IV SCH ×4 (05:46→23:30)
[2019-04-14] MEDS: inSUlin ASPART (NovoLOG) 1 UNIT/0.01 ML (CHARGE PER UNIT) SC SCH ×4 (05:46→21:16)
[2019-04-14 05:47] LABS: BASOPHILS % (AUTO) 0 % (0-10); EOSINOPHILS % (AUTO) 0 % (0-10); HEMATOCRIT 32 % (35-52); HEMOGLOBIN 10.2 G/DL (11.5-16.0); LYMPHOCYTES # (AUTO) 0.9 X 10^3 (1.0-4.0); LYMPHOCYTES % (AUTO) 5 % (12-44); MEAN CORPUSCULAR HEMOGLOBIN 30 PG (25-34); MEAN CORPUSCULAR HGB CONC 32 G/DL (32-36); MEAN CORPUSCULAR VOLUME 94 FL (80-99); MONOCYTES # (AUTO) 1.9 X 10^3 (0.0-1.0); MONOCYTES % (AUTO) 11 % (0-12); NEUTROPHILS # (AUTO) 14.6 X 10^3 (1.8-7.8); NEUTROPHILS % (AUTO) 84 % (42-75); PLATELET COUNT 241 10^3/uL (130-400); RED CELL DISTRIBUTION WIDTH 12.7 % (10.0-14.5); WHITE BLOOD COUNT 17.5 10^3/uL (4.3-11.0)
[2019-04-14 06:38] LABS: CALCIUM 8.3 MG/DL (8.5-10.1); CREATININE SERUM 0.91 MG/DL (0.60-1.30); MAGNESIUM 1.8 MG/DL (1.6-2.4); POTASSIUM 3.6 MMOL/L (3.6-5.0)
[2019-04-14] MEDS: RT-ADVAIR HFA 115/21 MCG PER PUFF IH SCH (07:28)
--- NOTE | 2019-04-14 07:48 | Cardiology Progress Note ---
Subjective Date Seen by Provider: Apr 14, 2019 Time Seen by Provider: 07:42 Subjective/Events-last exam pt in bed, receiving breathing Treatment at this time. Denies any chest pain or any other cardiac sx. Reports she was in a lot of RLE pain last night for which she has received pain meds. her pain has improved at this time. Review of Systems General: No Chills, No Fatigue Pulmonary: Dyspnea; No Cough Cardiovascular: No: Chest Pain, Palpitations Gastrointestinal: No: Nausea, Vomiting Genitourinary: No Dysuria, No Frequency Musculoskeletal: leg pain; No: foot pain Focused Exam Lactate Level 04/12/19 15:31: Lactic Acid Level 1.30 Objective-Cardiology Exam Last Set of Vital Signs Vital Signs 04/13/19 04/14/19 04/14/19 08:39 03:50 07:30 Temp 37.5 Pulse 80 Resp 18 B/P (MAP) 185/75 (111) Pulse Ox 90 O2 Delivery Room Air FiO2 21 Capillary Refill : Less Than 3 Seconds I&O Intake and Output 04/14/19 00:00 Intake Total 4050 ml Balance 4050 ml Intake Oral 2260 ml IV Total 1790 ml # Voids 7 General: Alert, Oriented X3 HEENT: Atraumatic, PERRLA Neck: Supple, No JVD Lungs: Other (Dinished breath sounds, may be partially to body habitus ) Heart: Regular Rate, Normal S1, Normal S2, No Murmurs Extremities: No Clubbing, No Cyanosis, Other (bilat LE edema unchanged from yesterday, ) Skin: Other (wound on RLE, dressing changed yesterday) Neuro: Sensation Intact, Cranial Nerves 3-12 NL Results Lab Laboratory Tests 04/14/19 05:30 A/P-Cardiology Admission Diagnosis BLE weakness, nonhealing wound RLE PAF HTN HLP Assessment/Plan Increased weakness to BLE, complaining of increased right knee pain, XR of R knee on showed severe degenerative changes but no acute abnormalities, No acute abnormalities were found on Tib/fib XR either. management per PCP. Paroxysmal atrial fibrillation-History of CHRISTOS with successful cardioversion January 2018. She is maintained on amiodarone, Toprol and Eliquis. Rate controlled. Continue to monitor. History of chest pain, no recent episodes of chest pain, however she has multiple risk factors for underlying coronary artery disease. Was scheduled for stress test as outpatient in January 2018, but test was not done. Consider stress test as outpatient. Nonhealing wound to RLE, follows with wound care. CTA done Nov 2017 showed less than optimal as the aorta and its branches not optimally opacified. There was no hemodynamically significant stenosis identified but the trifurcation arteries were not well imaged. There appears to be only a single vessel (posterior tibial artery runoff to each lower extremity). Planing to perform Peripheral Arteriogram tomorrow to evaluate Peripheral artery patency. Pt to be NPO after midnight Neutrophilic leucocytosis and Wound culture shows staph aureus, on Vancomycin and Cefepime. Continue to monitor Hypertension,home BP has been restarted, but BP has been poorly controlled in 180s/70s. Will continue to monitor and adjust medical Therapy as needed for better BP control Hyperlipidemia, monitored as outpatient Iron Deficiency Anemia, followed by Dr. Roblero and Dr. Gaines Diabetes mellitus, followed and managed by primary care physician. Bronchial asthma, receiving Advair COPD, obstructive sleep apnea using C Pap machine. Nonobstructive carotid artery stenosis-carotid duplex done Jan 2018. Continue to monitor. Clinical Quality Measures DVT/VTE Risk/Contraindication: Risk Factor Score Per Nursin RFS Level Per Nursing on Admit: 4+=Very High Supervisory-Addendum Brief Verification & Attestation Participated in pt care: history, MDM, physical Personally performed: exam, history, MDM, supervision of care Care discussed with: Medical Student Procedures: n/a Results interpretation: Verified all documentation Verification and Attestation of Medical Student E/M Service A medical student performed and documented this service in my presence. I reviewed and verified all information documented by the medical student and made modifications to such information, when appropriate. I personally performed the physical exam and medical decision making. Patient was seen and evaluated, laying down in bed, still having generalized weakness and pain in her right leg X-ray did not show fluid collection. Receiving antibiotic, nonhealing wound of the leg, CTA done over a year ago and it was borderline, planning to evaluate peripheral angiogram Continue on current medication monitor Ariana Whittington, Apr 14, 2019,10:08 DESI YEPEZ [facility] Apr 14, 2019 07:48 ARIANA WHITTINGTON MD Apr 14, 2019 10:09
[2019-04-14 08:00] VITALS: BP 187/78
[2019-04-14] MEDS: APIXABAN 5 MG (ELIQUIS) TABLET PO SCH ×2 (08:31→21:16)
[2019-04-14] MEDS: DOCUSATE SODIUM 100 MG (COLACE) CAP PO SCH ×3 (08:31→21:20)
[2019-04-14] MEDS: FUROSEMIDE 40 MG (LASIX) TAB PO SCH (08:32)
[2019-04-14] MEDS: SENNOSIDES 8.6 MG (SENOKOT) TAB PO SCH ×2 (08:34→21:16)
--- NOTE | 2019-04-14 11:11 | Progress Note - Hospitalist ---
Subjective HPI/CC On Admission Date Seen by Provider: Apr 14, 2019 Time Seen by Provider: 09:00 Felipa Vasquez is a 74-year-old female with PMH HTN, AFib on Eliquis, T2DM, obesity, ADITI on CPAP, who presented with right leg pain. She has a chronic right lower extremity wound. She has been following with wound care. She has been off and on antibiotics for a long period of time. She was last on minocycline for 1 month and has been off antibiotics for one week at this time. She reports that she has been getting more weak at home. She says that she tried to stand up and had a shooting pain of her right leg. She does not report any fevers or chills at home. She denies any shortness of breath or chest pain. She denies any abdominal pain, nausea, vomiting, diarrhea, or dysuria. Subjective/Events-last exam She is feeling a bit better this morning. She continues to have fevers. She still has a lot of pain in her right leg. She is not able to move very well. She denies any shortness of breath. She denies any chest pain. She denies any abdominal pain. She denies nausea and vomiting. She has no other complaints or concerns. Focused Exam Lactate Level 04/12/19 15:31: Lactic Acid Level 1.30 Objective Exam Vital Signs Vital Signs Date Time Temp Pulse Resp B/P (MAP) Pulse Ox O2 Delivery O2 Flow Rate FiO2 04/14/19 08:00 38.1 91 20 187/78 (114) 93 Room Air 04/13/19 08:39 21 Capillary Refill : Less Than 3 Seconds General Appearance: No Apparent Distress, Obese HEENT: PERRL/EOMI, Pharynx Normal Neck: Normal Inspection, Supple Respiratory: Lungs Clear, Normal Breath Sounds, No Respiratory Distress Cardiovascular: Regular Rate, Rhythm, No Edema, No Murmur Gastrointestinal: Normal Bowel Sounds, Non Tender, Soft Extremity: Other (Lymphedema, right lower extremity wound with wrap in place, warmth up to the right knee without erythema) Results/Procedures Lab Laboratory Tests 04/14/19 05:30 Patient resulted labs reviewed. Imaging: Reviewed Imaging Report Assessment/Plan Assessment and Plan Assess & Plan/Chief Complaint Sepsis Nonhealing wound of right lower extremity Possible osteomyelitis Gram-negative bacteremia X-rays without evidence of osteomyelitis Obtain CT right lower extremity Blood cultures positive for pseudomonas aeruginosa Wound culture growing staph, Pseudomonas, and Proteus Continue vancomycin and cefepime Type II diabetes mellitus Sliding scale insulin Debility PT/OT consulted Will likely require placement on discharge Hypertension Paroxysmal atrial fibrillation Hyperlipidemia Continue home meds DVT prophylaxis: Already receiving therapeutic anticoagulation Diagnosis/Problems Diagnosis/Problems (1) Sepsis Status: Acute (2) Morbid obesity Status: Chronic (3) T2DM (type 2 diabetes mellitus) Status: Chronic (4) Non-healing ulcer of right ankle Status: Chronic Qualifiers: Non-pressure ulcer stage: limited to breakdown of skin Qualified Codes: L97.311 - Non-pressure chronic ulcer of right ankle limited to breakdown of skin (5) Chronic wound of extremity Status: Chronic (6) Gram-negative bacteremia (7) Debility Status: Acute Clinical Quality Measures DVT/VTE Risk/Contraindication: Risk Factor Score Per Nursin RFS Level Per Nursing on Admit: 4+=Very High JE WOODARD MD Apr 14, 2019 11:10
[2019-04-14] MEDS: meTOproloL SUCCINATE 50 MG (TOPROL XL) TAB PO SCH (11:16)
[2019-04-14] MEDS: AMIODARONE 200 MG (CORDARONE) TAB PO SCH (11:16)
[2019-04-14] MEDS: NS IV 1000 ML 1,000 ML IV SCH (11:19)
[2019-04-14] MEDS: ADVAIR HFA 115/21 MCG INHALER 8 GM IH SCH ×2 (11:22→18:37)
--- NOTE | 2019-04-14 11:59 | Physical Therapy Daily Note ---
PT Daily Note-Current Subjective Patient agrees to try and move around for therapy. Pain Numeric Pain Scale: 8 Location: Right Location Body Site: Thigh Pain Description: Dull Appearance Patient in bed with head elevated, call light and bedside table within reach. Mental Status Patient Orientation: Normal For Age Attachments: Other-See Comments (Desiree), IV Transfers SCALE: Activities may be completed with or without assistive devices. 0-Pbwdzyvtkd-mvdnwqc completes the activity by him/herself with no assistance from a helper. 5-Set-up or Clean-up Assistance-helper sets up or cleans up; patient completes activity. [place] assists only prior to or following the activity. 4-Supervision or Touching Assistance-helper provides verbal cues and/or touching/steadying and/or contact guard assistance as patient completes activity. Assistance may be provided throughout the activity or intermittently. 3-Partial/Moderate Assistance-helper does LESS THAN HALF the effort. [place] lifts, holds or supports trunk or limbs, but provides less than half the effort. 2-Substantial/Maximal Assistance-helper does MORE THAN HALF the effort. [place] lifts or holds trunk or limbs and provides more than half the effort. 5-Bmfznsjnp-taadmt does ALL the effort. Patient does none of the effort to complete the activity. Or, the assistance of 2 or more helpers is required for the patient to complete the activity. If activity was not attempted, code reason: 7-Patient Refused. 9-Not Applicable-not attempted and the patient did not perform the activity before the current illness, exacerbation or injury. 10-Not Attempted due to Environmental Limitations-(lack of equipment, weather restraints, etc.). 88-Not Attempted due to Medical Conditions or Safety Concerns. Roll Left & Right (QC): 2 Sit to Lying (QC): 1 Lying to Sitting/Side of Bed(Q: 2 Sit to Stand (QC): 2 place bed in Trendelenburg for repositioning up in bed Weight Bearing Right Lower Extremity: Right Weight Bearing/Tolerated Left Lower Extremity: Left Weight Bearing/Tolerated Gait Training Does the Patient Walk?: Yes Distance: 1 side step taken. Gait Assistive Device: FWW Patient attempted to side step to HOB but was unable to do so. Wheelchair Training Does the Pt Use a Wheelchair?: No Exercises Supine Ex: Ankle pumps (LLE 15) Seated Therapy Exercises: Long arc quads (BLE 10) Assessment Patient is limiting what she is willing to do due to pain. Patient reports that she can not take more than 1 side step because it hurts. Patient is in pain with every movement taken. PT Short Term Goals Short Term Goals Time Frame: Apr 24, 2019 Roll Left & Right: 3 Sit to lyin Lying to sitting on side of be: 3 Sit to stand: 3 Chair/zhl-hc-dlzvm transfer: 3 Toilet transfer: 3 Walk 10 feet: 3 PT Insecticide Expert Goals Insecticide Expert Goals PT Group Home Goals Time Frame: May 02, 2019 Roll Left & Right (QC): 5 Sit to Lying (QC): 5 Lying-Sitting on Side/Bed(QC): 5 Sit to Stand (QC): 5 Chair/Lpf-ud-Pigcm Xfer(QC): 5 Toilet Transfer (QC): 5 Does the Patient Walk: Yes Walk 10 feet (QC): 5 Walk 50ft with 2 Turns (QC): 5 PT Plan Problem List Problem List: Activity Tolerance, Functional Strength, Safety, Balance, Gait, Transfer, Bed Mobility, ROM Treatment/Plan Treatment Plan: Continue Plan of Care Treatment Plan: Bed Mobility, Education, Functional Activity Yimi, Functional Strength, Gait, Safety, Therapeutic Exercise, Transfers Treatment Duration: May 02, 2019 Frequency: 5 times per week Estimated Hrs Per Day: .25 hour per day Patient and/or Family Agrees t: Yes Safety Risks/Education Patient Education: Transfer Techniques Teaching Recipient: Patient Teaching Methods: Discussion Response to Teaching: Reinforcement Needed Time/GCodes Time In: 1039 Time Out: 1100 Total Billed Treatment Time: 21 Total Billed Treatment 1 visit FA (21 minutes) KWASI DISLA PT Apr 14, 2019 11:59
[2019-04-14 12:00] VITALS: BP 182/77
[2019-04-14] MEDS ORDERED: NS 100 ML (IVPB) BAG IV ONE (15:00)
[2019-04-14] MEDS ORDERED: IOHEXOL 350 MG/ML 100 ML (OMNIPAQUE 350) VIAL IV ONE (15:00)
[2019-04-14] MEDS ORDERED: HOLD METFORMIN - RECEIVED CONTRAST 20 ML VIAL IV SCH (15:00)
[2019-04-14] MEDS ORDERED: CATHETER FLUSH 10 ML SYR IV PRN (15:00)
--- NOTE | 2019-04-14 16:01 | Diagnostic Imaging Report ---
PROCEDURE: CT right lower extremity with contrast. TECHNIQUE: Multiple contiguous axial CT images of the right extremity were obtained after intravenous administration of iodinated contrast. Auto Exposure Controls were utilized during the CT exam to meet ALARA standards for radiation dose reduction. INDICATION: Ulcer on the lateral left ankle. Possible osteomyelitis. Unable to receive MRI. COMPARISON: Radiographs from 04/13/2019. FINDINGS: There are advanced degenerative changes in the right ankle with a prominent os trigonum. There is end-stage osteoarthritis in the right knee with remodeling of the articular surfaces in the medial compartment. Multiple large ossified joint bodies are seen. No acute fracture is seen in the imaged right leg. No cortical erosion is seen. There is mild periosteal reaction at the lateral aspect of the distal fibula (image [id number], series 3). There is marked subcutaneous edema in the left lower leg with extensive soft tissue calcifications. No rim-enhancing fluid collection is seen. There is moderate atrophy of the musculature in the right lower leg. There is extensive calcific atherosclerosis. IMPRESSION: 1. Mild periosteal reaction seen at the lateral cortex of the distal right fibula can be seen with osteomyelitis. No cortical erosion is seen. 2. Extensive superficial soft tissue edema throughout the right lower extremity with no rim-enhancing fluid collection seen. 3. End-stage osteoarthritis in the right knee. Multiple joint bodies. Dictated by: Dictated on workstation # [id number]
[2019-04-14 16:04] VITALS: BP 172/77
[2019-04-14] MEDS: ACETAMINOPHEN 325 MG TABLET PO PRN (16:25)
[2019-04-14] MEDS: VANCOMYCIN INJECTION 2,000 MG in NS IV 500 ML 500 ML IV SCH (16:25)
[2019-04-14 19:33] VITALS: BP 183/77
[2019-04-14] MEDS: MONTELUKAST 10 MG (SINGULAIR) TAB PO SCH (21:16)
[2019-04-15] VITALS (14 sets, daily range): BP systolic 115–180; BP diastolic 54–81
[2019-04-15] MEDS: RT-ALBUTEROL/IPRATROPIUM 3 ML (DUONEB) VIAL INH SCH ×6 (01:35→23:32)
[2019-04-15 05:29] LABS: BASOPHILS % (AUTO) 0 % (0-10); EOSINOPHILS % (AUTO) 0 % (0-10); HEMATOCRIT 31 % (35-52); HEMOGLOBIN 9.9 G/DL (11.5-16.0); LYMPHOCYTES # (AUTO) 0.9 X 10^3 (1.0-4.0); LYMPHOCYTES % (AUTO) 5 % (12-44); MEAN CORPUSCULAR HEMOGLOBIN 30 PG (25-34); MEAN CORPUSCULAR HGB CONC 32 G/DL (32-36); MEAN CORPUSCULAR VOLUME 93 FL (80-99); MONOCYTES # (AUTO) 1.8 X 10^3 (0.0-1.0); MONOCYTES % (AUTO) 10 % (0-12); NEUTROPHILS # (AUTO) 15.3 X 10^3 (1.8-7.8); NEUTROPHILS % (AUTO) 85 % (42-75); PLATELET COUNT 242 10^3/uL (130-400); RED CELL DISTRIBUTION WIDTH 12.9 % (10.0-14.5)
[2019-04-15 05:46] LABS: CALCIUM 8.2 MG/DL (8.5-10.1); CREATININE SERUM 1.09 MG/DL (0.60-1.30); POTASSIUM 3.2 MMOL/L (3.6-5.0)
[2019-04-15] MEDS: CEFEPIME INJECTION 1,000 MG in WATER (STERILE) FOR INJECTION 10 ML IV SCH ×3 (06:00→17:44)
[2019-04-15] MEDS: inSUlin ASPART (NovoLOG) 1 UNIT/0.01 ML (CHARGE PER UNIT) SC SCH ×4 (06:04→21:12)
[2019-04-15] MEDS: ADVAIR HFA 115/21 MCG INHALER 8 GM IH SCH ×2 (06:29→23:37)
[2019-04-15] MEDS ORDERED: LIDOCAINE 1% INJ 20 ML 20 ML VIAL ONE (06:48)
[2019-04-15] MEDS ORDERED: HEParin (CATH LAB) 2,000 ML IV ONE (06:48)
[2019-04-15] MEDS ORDERED: KCL 20 MEQ TAB (K-DUR) PO NR (07:30)
--- NOTE | 2019-04-15 09:20 | Cardiology Progress Note ---
Subjective Date Seen by Provider: Apr 15, 2019 Time Seen by Provider: 09:00 Subjective/Events-last exam pt feeling well. Denies any cardiac sx, including chest pain, palpitations, or dizziness. Informed pt regarding her CT results and plan for Cardiac procedure later today. Review of Systems General: No Chills, No Night Sweats HEENT: No Head Aches, No Visual Changes Pulmonary: No Dyspnea, No Cough Cardiovascular: No: Chest Pain, Palpitations Gastrointestinal: No: Nausea, Vomiting Genitourinary: No Dysuria, No Frequency Musculoskeletal: leg pain; No: back pain Focused Exam Lactate Level 04/12/19 15:31: Lactic Acid Level 1.30 Objective-Cardiology Exam Last Set of Vital Signs Vital Signs 04/13/19 04/15/19 08:39 12:00 Temp 37.6 Pulse 93 Resp 18 B/P (MAP) 149/67 (94) Pulse Ox 93 O2 Delivery Room Air FiO2 21 Capillary Refill : Less Than 3 Seconds I&O Intake and Output 04/14/19 23:59 Intake Total 2010 ml Output Total 1101 ml Balance 909 ml Intake Oral 2000 ml IV Total 10 ml Output Urine Total 1100 ml Stool Total 1 ml # Voids 5 General: Alert, Oriented X3 HEENT: Atraumatic, PERRLA Neck: Supple, No JVD Lungs: Other (Dinished breath sounds, may be partially to body habitus ) Heart: Regular Rate, Normal S1, Normal S2, No Murmurs Extremities: No Clubbing, No Cyanosis, Other (bilat LE edema unchanged from yesterday, ) Skin: Other (wound on RLE, dressing changed yesterday) Neuro: Sensation Intact, Cranial Nerves 3-12 NL Results Lab Laboratory Tests 04/15/19 05:23 A/P-Cardiology Admission Diagnosis BLE weakness, nonhealing wound RLE PAF HTN HLP Assessment/Plan Increased weakness to BLE, complaining of increased right knee pain, XR of R knee on showed severe degenerative changes but no acute abnormalities, CT of RLE showed osteomyelitis of distal fibula. management per PCP. Paroxysmal atrial fibrillation-History of CHRISTOS with successful cardioversion January 2018. She is maintained on amiodarone, Toprol and Eliquis. Rate controlled. Continue to monitor. History of chest pain, no recent episodes of chest pain, however she has multiple risk factors for underlying coronary artery disease. Was scheduled for stress test as outpatient in January 2018, but test was not done. Consider stress test as outpatient. Nonhealing wound to RLE, follows with wound care. CTA done Nov 2017 showed less than optimal as the aorta and its branches not optimally opacified. There was no hemodynamically significant stenosis identified but the trifurcation arteries were not well imaged. There appears to be only a single vessel (post erior tibial artery runoff to each lower extremity).Will go ahead with the Peripheral Arteriogram later today. Hypokalemia, replacement ordered. Managed by primary care team. Neutrophilic leucocytosis and Wound culture shows staph aureus, on Vancomycin and Cefepime. Continue to monitor Hypertension,persistent despite b-blockers and Lasix. still in 180s/70s. Will continue to monitor and adjust medical Therapy as needed for better BP control Hyperlipidemia, monitored as outpatient Iron Deficiency Anemia, followed by Dr. Roblero and Dr. Gaines Diabetes mellitus, followed and managed by primary care physician. Bronchial asthma, receiving Advair COPD, obstructive sleep apnea using C Pap machine. Nonobstructive carotid artery stenosis-carotid duplex done Jan 2018. Continue to monitor. Clinical Quality Measures DVT/VTE Risk/Contraindication: Risk Factor Score Per Nursin RFS Level Per Nursing on Admit: 4+=Very High Supervisory-Addendum Brief Verification & Attestation Participated in pt care: history, MDM, physical Personally performed: exam, history, MDM, supervision of care Care discussed with: Medical Student Procedures: n/a Results interpretation: Verified all documentation Verification and Attestation of Medical Student E/M Service A medical student performed and documented this service in my presence. I reviewed and verified all information documented by the medical student and made modifications to such information, when appropriate. I personally performed the physical exam and medical decision making. Visit in length with the patient, discussed with her the management plan, had a long discussion about the procedure, all pros and cons were explained Feeling better at this time, still concerned about the procedure Continue with maximizing medical therapy, replace potassium and magnesium and monitor electrolytes Planning for peripheral angiogram today Ariana Whittington, Apr 15, 2019,14:41 DESI YEPEZ [facility] Apr 15, 2019 9:20 am ARIANA WHITTINGTON MD Apr 15, 2019 2:42 pm
[2019-04-15] MEDS: NS IV 1000 ML 1,000 ML IV SCH ×2 (09:33→17:34)
[2019-04-15] MEDS: MAGNESIUM 1 GM/100 ML IVPB 100 ML IV SCH ×5 (09:38→18:25)
[2019-04-15] MEDS: POTASSIUM CL 10MEQ/50ML IVPB 50 ML IV SCH ×4 (09:38→12:40)
[2019-04-15] MEDS: DOCUSATE SODIUM 100 MG (COLACE) CAP PO SCH ×2 (09:44→21:09)
[2019-04-15] MEDS: APIXABAN 5 MG (ELIQUIS) TABLET PO SCH ×2 (09:44→21:24)
[2019-04-15] MEDS: SENNOSIDES 8.6 MG (SENOKOT) TAB PO SCH ×2 (09:44→21:09)
--- NOTE | 2019-04-15 10:49 | Physical Therapy Daily Note ---
PT Daily Note-Current Subjective Patient does not want to try to get out of bed at this time but is agreeable to exercises. Pain Numeric Pain Scale: 10-Worst Possible Pain Location: Right Location Body Site: Foot Appearance Patient in bed with bedside table and call light within reach. Mental Status Patient Orientation: Person, Place, Time, Situation Attachments: IV Transfers SCALE: Activities may be completed with or without assistive devices. 8-Mshskisegg-vamgqbn completes the activity by him/herself with no assistance from a helper. 5-Set-up or Clean-up Assistance-helper sets up or cleans up; patient completes activity. [place] assists only prior to or following the activity. 4-Supervision or Touching Assistance-helper provides verbal cues and/or touching/steadying and/or contact guard assistance as patient completes activity. Assistance may be provided throughout the activity or intermittently. 3-Partial/Moderate Assistance-helper does LESS THAN HALF the effort. [place] lifts, holds or supports trunk or limbs, but provides less than half the effort. 2-Substantial/Maximal Assistance-helper does MORE THAN HALF the effort. [place] lifts or holds trunk or limbs and provides more than half the effort. 7-Flsjcebyv-ckxrej does ALL the effort. Patient does none of the effort to complete the activity. Or, the assistance of 2 or more helpers is required for the patient to complete the activity. If activity was not attempted, code reason: 7-Patient Refused. 9-Not Applicable-not attempted and the patient did not perform the activity before the current illness, exacerbation or injury. 10-Not Attempted due to Environmental Limitations-(lack of equipment, weather restraints, etc.). 88-Not Attempted due to Medical Conditions or Safety Concerns. Weight Bearing Right Lower Extremity: Right Weight Bearing/Tolerated Left Lower Extremity: Left Weight Bearing/Tolerated Gait Training Does the Patient Walk?: No and Walking Goal IS indicated Wheelchair Training Does the Pt Use a Wheelchair?: No Exercises Supine Ex: Ankle pumps, Quad Set, Glut sets, Heel Slides, Short Arc Quads, Straight leg raise, Hip abd/add Supine Reps: 15 LLE only. Patient refused to move RLE due to pain. Treatments Exercises. Assessment Current Status: Poor Progress Patient had limited ROM on LLE during exercises and was unwilling to move the RLE due to pain. Patient also is very upset due a discussion with doctor. PT Short Term Goals Short Term Goals Time Frame: Apr 24, 2019 Roll Left & Right: 3 Sit to lyin Lying to sitting on side of be: 3 Sit to stand: 3 Chair/cuy-lr-bowxw transfer: 3 Toilet transfer: 3 Walk 10 feet: 3 PT Halfway Goals Customer Care Associate Goals PT Customer Care Associate Goals Time Frame: May 02, 2019 Roll Left & Right (QC): 5 Sit to Lying (QC): 5 Lying-Sitting on Side/Bed(QC): 5 Sit to Stand (QC): 5 Chair/Ira-xb-Tfmvo Xfer(QC): 5 Toilet Transfer (QC): 5 Does the Patient Walk: Yes Walk 10 feet (QC): 5 Walk 50ft with 2 Turns (QC): 5 PT Plan Problem List Problem List: Activity Tolerance, Functional Strength, Safety, Balance, Gait, Transfer, Bed Mobility, ROM Treatment/Plan Treatment Plan: Continue Plan of Care Treatment Plan: Bed Mobility, Education, Functional Activity Yimi, Functional Strength, Gait, Safety, Therapeutic Exercise, Transfers Treatment Duration: May 02, 2019 Frequency: 5 times per week Estimated Hrs Per Day: .25 hour per day Patient and/or Family Agrees t: Yes Safety Risks/Education Patient Education: Correct Positioning, Safety Issues Teaching Recipient: Patient Teaching Methods: Discussion Response to Teaching: Reinforcement Needed Time/GCodes Time In: 1020 Time Out: 1041 Total Billed Treatment Time: 21 Total Billed Treatment 1 visit EX (21 minutes) RICO QUEZADA PT Apr 15, 2019 10:49
[2019-04-15] MEDS: meTOproloL SUCCINATE 50 MG (TOPROL XL) TAB PO SCH (11:25)
[2019-04-15] MEDS: AMIODARONE 200 MG (CORDARONE) TAB PO SCH (11:26)
[2019-04-15] MEDS: FUROSEMIDE 40 MG (LASIX) TAB PO SCH (11:26)
--- NOTE | 2019-04-15 14:43 | Cardiac Procedure Note-CS/ASA ---
Pre-Procedure Note Pre-Op Procedure Note H&P Reviewed The H&P was reviewed, patient examined and no changes noted. Date H&P Reviewed: Apr 15, 2019 Time H&P Reviewed: 14:42 Conscious Sedation Pre-Proced Time 14:42 ASA Score 3 For ASA 3 and 4: Consider anesthesia and medical clearance. Also, for patients with a history of failed moderate sedation consider anesthesia. Airway Lungs Heart ASA score ASA 1: a normal healthy patient ASA 2: a patient with a mild systemic disease (mid diabetes, controlled hypertension, obesity x ASA 3: a patient with a severe systemic disease that limits activity (angina, COPD, prior Myocardial infarction) ASA 4: a patient with an incapacitating disease that is a constant threat to life (CHF, renal failure) ASA 5: a moribund patient not expected to survive 24 hrs. (ruptured aneurysm) ASA 6: a declared brain- patient whose organs are being harvested. For emergent operations, add the letter E after the classification Mallampati Classification Grade 3 Sedation Plan Analgesia, Amnesia, Plan communicated to team members, Discussed options with patient/fam, Discussed risks with patient/fam The patient is an appropriate candidate to undergo the planned procedure, sedation, and anesthesia. The patient immediately re-assessed prior to indication. ARIANA BARROS MD Apr 15, 2019 2:43 pm
[2019-04-15] MEDS ORDERED: MIDAZOLAM 5 MG/5 ML (VERSED) VIAL ONE (15:02)
[2019-04-15] MEDS ORDERED: fentaNYL INJECTION 100 MCG/2 ML AMP ONE (15:02)
[2019-04-15] MEDS ORDERED: TROUGH ORDER-PHARMACY XX NR (16:00)
--- NOTE | 2019-04-15 16:01 | Progress Note - Hospitalist ---
Subjective HPI/CC On Admission Date Seen by Provider: Apr 15, 2019 Time Seen by Provider: 10:10 Felipa Vasquez is a 74-year-old female with PMH HTN, AFib on Eliquis, T2DM, obesity, ADITI on CPAP, who presented with right leg pain. She has a chronic right lower extremity wound. She has been following with wound care. She has been off and on antibiotics for a long period of time. She was last on minocycline for 1 month and has been off antibiotics for one week at this time. She reports that she has been getting more weak at home. She says that she tried to stand up and had a shooting pain of her right leg. She does not report any fevers or chills at home. She denies any shortness of breath or chest pain. She denies any abdominal pain, nausea, vomiting, diarrhea, or dysuria. Subjective/Events-last exam She reports continued pain in her right leg. She continues to have fevers. She denies any chest pain or shortness of breath. She denies any abdominal pain, nausea, or vomiting. She has no other complaints. Objective Exam Vital Signs Vital Signs Date Time Temp Pulse Resp B/P (MAP) Pulse Ox O2 Delivery O2 Flow Rate FiO2 04/15/19 12:00 37.6 93 18 149/67 (94) 93 Room Air 04/13/19 08:39 21 Capillary Refill : Less Than 3 Seconds General Appearance: No Apparent Distress, Obese Neck: Normal Inspection, Supple Respiratory: Lungs Clear, Normal Breath Sounds, No Respiratory Distress Cardiovascular: Regular Rate, Rhythm, No Edema, No Murmur Gastrointestinal: Normal Bowel Sounds, Non Tender, Soft Extremity: Inflammation, Pedal Edema, Swelling, Other (Lymphedema) Skin: Erythema, Other (Right lower extremity wound) Results/Procedures Lab Laboratory Tests 04/15/19 05:23 Patient resulted labs reviewed. Imaging: Reviewed Imaging Report Assessment/Plan Assessment and Plan Assess & Plan/Chief Complaint Sepsis Nonhealing wound of right lower extremity Osteomyelitis Pseudomonas aeruginosa bacteremia CT revealed early signs of osteomyelitis Blood cultures positive for pseudomonas aeruginosa Wound culture growing staph, Pseudomonas, and Proteus Continue vancomycin and cefepime Will require long-term antibiotics Consult orthopedic surgery, no coverage until Saturday Peripheral vascular disease Cardiology consulted, appreciate assistance Planning for angiogram today Type II diabetes mellitus Sliding scale insulin Debility PT/OT consulted Will likely require placement on discharge Hypertension Paroxysmal atrial fibrillation Hyperlipidemia Continue home meds DVT prophylaxis: Already receiving therapeutic anticoagulation Diagnosis/Problems Diagnosis/Problems (1) Sepsis Status: Acute (2) Morbid obesity Status: Chronic (3) T2DM (type 2 diabetes mellitus) Status: Chronic (4) Non-healing ulcer of right ankle Status: Chronic Qualifiers: Non-pressure ulcer stage: limited to breakdown of skin Qualified Codes: L97.311 - Non-pressure chronic ulcer of right ankle limited to breakdown of skin (5) Chronic wound of extremity Status: Chronic (6) Gram-negative bacteremia Status: Acute (7) Debility Status: Acute (8) Acute osteomyelitis of right lower leg Status: Acute Clinical Quality Measures DVT/VTE Risk/Contraindication: Risk Factor Score Per Nursin RFS Level Per Nursing on Admit: 4+=Very High JE WOODARD MD Apr 15, 2019 16:01
--- NOTE | 2019-04-15 16:13 | Peripheral Report ---
Peripheral Report Physician (s)/Plumbing Designer (s) Physician ARIANA BARROS MD Pre-Procedure Diagnosis Pre-Procedure Diagnosis: osteomyelitis Post-Procedure Note Procedure Start Date: Apr 15, 2019 Name of Procedure: Bilateral runoff Findings/Procedure Note PROCEDURE NOTE: After explaining the procedure to the patient, all pros and cons were explained, all questions were answered. The patient signed the consent and then she was placed on the cardiac catheterization laboratory. The patient was placed on the cardiac catheterization laboratory. Groin was prepped SL fashion local anesthesia was used. Sheath placed in the left femoral artery, runoff was done then using rim catheter I did runoff to the right leg Additional imaging to the trifurcation and to the foot level. At the end of the procedure sheath was removed and closure device deployed FINDINGS: Left leg runoff: Tortuous system, there is no obstructive disease with good flow down to the knee Right leg runoff: Tortuous system with good flow with no obstructive disease down to the foot CONCLUSIONS: Tortuous arterial system, no significant obstructive disease in both lower extremities DISCUSSION AND RECOMMENDATIONS: The nonhealing ulcer are probably secondary to venous insufficiency Anesthesia Type: Conscious Sedation Estimated blood loss (mL): 20 ml Contrast Amount: 55 ml Total Radiation Dose: 353 mGy Post-Procedure Diagnosis Post-operative diagnosis: Osteomyelitis Nonhealing foot ulcer Hypertension Hyperlipidemia ARIANA BARROS MD Apr 15, 2019 4:13 pm
[2019-04-15] MEDS ORDERED: PATIENT MAY USE OWN MEDS, ALL PO SCH (16:15)
[2019-04-15] MEDS: VANCOMYCIN INJECTION 2,000 MG in NS IV 500 ML 500 ML IV SCH (17:45)
[2019-04-15] MEDS: MONTELUKAST 10 MG (SINGULAIR) TAB PO SCH (21:24)
[2019-04-15] MEDS: ACETAMINOPHEN 325 MG TABLET PO PRN (21:24)
[2019-04-16 00:10] VITALS: BP 144/65
[2019-04-16] MEDS: CEFEPIME INJECTION 1,000 MG in WATER (STERILE) FOR INJECTION 10 ML IV SCH ×5 (00:43→22:53)
[2019-04-16] MEDS: NS IV 1000 ML 1,000 ML IV SCH ×3 (00:44→10:20)
[2019-04-16] MEDS: RT-ALBUTEROL/IPRATROPIUM 3 ML (DUONEB) VIAL INH SCH ×5 (02:11→23:31)
[2019-04-16 04:26] LABS: BASOPHILS % (AUTO) 0 % (0-10); EOSINOPHILS # (AUTO) 0.1 10^3/uL (0.0-0.3); EOSINOPHILS % (AUTO) 1 % (0-10); HEMATOCRIT 32 % (35-52); LYMPHOCYTES % (AUTO) 7 % (12-44); MEAN CORPUSCULAR HEMOGLOBIN 30 PG (25-34); MEAN CORPUSCULAR HGB CONC 31 G/DL (32-36); MEAN CORPUSCULAR VOLUME 94 FL (80-99); MONOCYTES # (AUTO) 1.3 X 10^3 (0.0-1.0); MONOCYTES % (AUTO) 9 % (0-12); NEUTROPHILS # (AUTO) 12.5 X 10^3 (1.8-7.8); NEUTROPHILS % (AUTO) 84 % (42-75); PLATELET COUNT 275 10^3/uL (130-400); RED CELL DISTRIBUTION WIDTH 13.3 % (10.0-14.5); WHITE BLOOD COUNT 14.8 10^3/uL (4.3-11.0)
[2019-04-16 04:40] VITALS: BP 173/77
[2019-04-16 04:45] LABS: CALCIUM 8.5 MG/DL (8.5-10.1); CREATININE SERUM 1.1 MG/DL (0.60-1.30); POTASSIUM 3.6 MMOL/L (3.6-5.0)
[2019-04-16] MEDS ORDERED: CEFEPIME 2 GM (MAXIPIME) VIAL ONE (06:33)
[2019-04-16] MEDS ORDERED: WATER (STERILE) FOR INJECTION 10 ML ONE ×4 (06:33→22:46)
[2019-04-16] MEDS: inSUlin ASPART (NovoLOG) 1 UNIT/0.01 ML (CHARGE PER UNIT) SC SCH ×4 (06:41→20:58)
[2019-04-16 08:00] VITALS: BP 150/77
[2019-04-16] MEDS: DOCUSATE SODIUM 100 MG (COLACE) CAP PO SCH ×2 (08:20→20:57)
[2019-04-16] MEDS: APIXABAN 5 MG (ELIQUIS) TABLET PO SCH ×2 (08:20→20:57)
[2019-04-16] MEDS: SENNOSIDES 8.6 MG (SENOKOT) TAB PO SCH ×2 (08:20→20:57)
[2019-04-16] MEDS: FUROSEMIDE 40 MG (LASIX) TAB PO SCH (08:21)
--- NOTE | 2019-04-16 08:25 | Cardiology Progress Note ---
Subjective Date Seen by Provider: Apr 16, 2019 Time Seen by Provider: 08:08 Subjective/Events-last exam pt ling in bed comfortably. Denies any cardiac sx. Still c/o some discomfort from the angiography procedure yesterday. Review of Systems General: No Chills, No Night Sweats HEENT: No Head Aches, No Visual Changes Pulmonary: No Dyspnea, No Cough Cardiovascular: No: Chest Pain, Palpitations Gastrointestinal: No: Nausea, Vomiting Musculoskeletal: leg pain (chronic OA; groing pain from procedure yesterday) Objective-Cardiology Exam Last Set of Vital Signs Vital Signs 04/13/19 04/15/19 04/16/19 08:39 21:00 04:40 Temp 36.8 Pulse 83 Resp 24 B/P (MAP) 173/77 (109) Pulse Ox 95 O2 Delivery NIV CPAP O2 Flow Rate 3.00 FiO2 21 Capillary Refill : Less Than 3 Seconds I&O Intake and Output 04/16/19 00:00 Intake Total 2010 ml Balance 2009 ml Intake Oral 300 ml IV Total 1710 ml # Voids 4 # Urine Diapers 2 General: Alert, Oriented X3 HEENT: Atraumatic, PERRLA Neck: Supple, No JVD Lungs: Other (Dinished breath sounds, may be partially to body habitus ) Heart: Regular Rate, Normal S1, Normal S2, No Murmurs, Other Extremities: No Clubbing, No Cyanosis Skin: Other (wound on RLE, dressing changed yesterday) Neuro: Sensation Intact, Cranial Nerves 3-12 NL Results Lab Laboratory Tests 04/16/19 04:15 A/P-Cardiology Admission Diagnosis BLE weakness, nonhealing wound RLE PAF HTN HLP Assessment/Plan Increased weakness to BLE, complaining of increased right knee pain, XR of R knee on showed severe degenerative changes but no acute abnormalities, CT of RLE showed osteomyelitis of distal fibula. management per PCP. Paroxysmal atrial fibrillation-History of CHRISTOS with successful cardioversion January 2018. She is maintained on amiodarone, Toprol and Eliquis. Currently not in Afib. Continue to monitor. History of chest pain, no recent episodes of chest pain, however she has multiple risk factors for underlying coronary artery disease. Was scheduled for stress test as outpatient in January 2018, but test was not done. Consider stress test as outpatient. Nonhealing wound to RLE, follows with wound care. Peripheral Arteriogram on showed Tortuous arterial system, no significant obstructive disease in both lower extremities, ulcers are probably venous Hypokalemia, resolved. continue to monitor Neutrophilic leucocytosis and Wound culture shows staph aureus, on Vancomycin and Cefepime. WBC has decreased since yesterday. Managed by primary care team .Continue to monitor Hypertension,persistent despite b-blockers and Lasix. still in 180s/70s. Cr is 1.10. Will start on 10mg Lisinopril. Continue to monitor Hyperlipidemia, monitored as outpatient Iron Deficiency Anemia, followed by Dr. Roblero and Dr. Gaines Diabetes mellitus, followed and managed by primary care physician. Bronchial asthma, receiving Advair COPD, obstructive sleep apnea using C Pap machine. Nonobstructive carotid artery stenosis-carotid duplex done Jan 2018. Continue to monitor. Clinical Quality Measures DVT/VTE Risk/Contraindication: Risk Factor Score Per Nursin RFS Level Per Nursing on Admit: 4+=Very High Supervisory-Addendum Brief Verification & Attestation Participated in pt care: history, MDM, physical Personally performed: exam, history, MDM, supervision of care Care discussed with: Medical Student Procedures: n/a Results interpretation: Verified all documentation Verification and Attestation of Medical Student E/M Service A medical student performed and documented this service in my presence. I reviewed and verified all information documented by the medical student and made modifications to such information, when appropriate. I personally performed the physical exam and medical decision making. osteomyelitis, venous ulcers, receiving antibiotics generalized weakness, morbid obesity, needs physical therapy Ariana Whittington, Apr 16, 2019,08:39 DESI YEPEZ [facility] Apr 16, 2019 08:25 ARIANA WHITTINGTON MD Apr 16, 2019 08:39
[2019-04-16] MEDS: lisINopril 10 MG (PRINIVIL) TABLET PO SCH (09:19)
--- NOTE | 2019-04-16 10:05 | Physical Therapy Daily Note ---
PT Daily Note-Current Subjective Patient in bed pre tx, agrees to PT, has 9/10 pain in right leg. Appearance Patient in bed post tx with nurse call, phone, tray, nurse aides still in room to change gown. Mental Status Patient Orientation: Normal For Age Attachments: IV Transfers SCALE: Activities may be completed with or without assistive devices. 2-Swxkqhncwx-pciznen completes the activity by him/herself with no assistance from a helper. 5-Set-up or Clean-up Assistance-helper sets up or cleans up; patient completes activity. [place] assists only prior to or following the activity. 4-Supervision or Touching Assistance-helper provides verbal cues and/or touching/steadying and/or contact guard assistance as patient completes activity. Assistance may be provided throughout the activity or intermittently. 3-Partial/Moderate Assistance-helper does LESS THAN HALF the effort. [place] lifts, holds or supports trunk or limbs, but provides less than half the effort. 2-Substantial/Maximal Assistance-helper does MORE THAN HALF the effort. [place] lifts or holds trunk or limbs and provides more than half the effort. 9-Umiltfbnw-ufdrsi does ALL the effort. Patient does none of the effort to complete the activity. Or, the assistance of 2 or more helpers is required for the patient to complete the activity. If activity was not attempted, code reason: 7-Patient Refused. 9-Not Applicable-not attempted and the patient did not perform the activity before the current illness, exacerbation or injury. 10-Not Attempted due to Environmental Limitations-(lack of equipment, weather restraints, etc.). 88-Not Attempted due to Medical Conditions or Safety Concerns. Roll Left & Right (QC): 1 Attempted to sit at the edge of the bed but patient could not tolerate moving her right leg. Patient had urinated in bed, nursing assisted cleaning patient while PT assisted patient rolling from side to side to get new sheets on bed and to get into position for cleaning. Weight Bearing Right Lower Extremity: Right Weight Bearing/Tolerated Left Lower Extremity: Left Weight Bearing/Tolerated Exercises Supine Ex: Ankle pumps, Heel Slides (PROM to right leg and just minimal movement), Hip abd/add (PROM for right leg and just minimal movement) Assessment Current Status: Poor Progress Declining mobility PT Short Term Goals Short Term Goals Time Frame: Apr 24, 2019 Roll Left & Right: 3 Sit to lyin Lying to sitting on side of be: 3 Sit to stand: 3 Chair/asa-pi-laail transfer: 3 Toilet transfer: 3 Walk 10 feet: 3 PT Pet House Sitter Goals Jail Goals PT Pet House Sitter Goals Time Frame: May 02, 2019 Roll Left & Right (QC): 5 Sit to Lying (QC): 5 Lying-Sitting on Side/Bed(QC): 5 Sit to Stand (QC): 5 Chair/Ymj-gf-Izbsx Xfer(QC): 5 Toilet Transfer (QC): 5 Does the Patient Walk: Yes Walk 10 feet (QC): 5 Walk 50ft with 2 Turns (QC): 5 PT Plan Problem List Problem List: Activity Tolerance, Functional Strength, Safety, Balance, Gait, Transfer, Bed Mobility, ROM Treatment/Plan Treatment Plan: Continue Plan of Care Treatment Plan: Bed Mobility, Education, Functional Activity Yimi, Functional Strength, Gait, Safety, Therapeutic Exercise, Transfers Treatment Duration: May 02, 2019 Frequency: 5 times per week Estimated Hrs Per Day: .25 hour per day Patient and/or Family Agrees t: Yes Safety Risks/Education Patient Education: Correct Positioning, Safety Issues Teaching Recipient: Patient Teaching Methods: Demonstration, Discussion Response to Teaching: Reinforcement Needed Time/GCodes Time In: 929 Time Out: 947 Total Billed Treatment Time: 18 Total Billed Treatment 1 visit FA RICO GOMEZ PT Apr 16, 2019 10:05
[2019-04-16] MEDS: ADVAIR HFA 115/21 MCG INHALER 8 GM IH SCH (10:06)
[2019-04-16] MEDS ORDERED: CEFEPIME 1 GM (MAXIPIME) VIAL ONE ×3 (10:11→22:46)
[2019-04-16] MEDS: AMIODARONE 200 MG (CORDARONE) TAB PO SCH (11:35)
[2019-04-16] MEDS: meTOproloL SUCCINATE 50 MG (TOPROL XL) TAB PO SCH (11:36)
--- NOTE | 2019-04-16 11:51 | Progress Note - Hospitalist ---
Subjective HPI/CC On Admission Date Seen by Provider: Apr 16, 2019 Time Seen by Provider: 10:10 Felipa Vasquez is a 74-year-old female with PMH HTN, AFib on Eliquis, T2DM, obesity, ADITI on CPAP, who presented with right leg pain. She has a chronic right lower extremity wound. She has been following with wound care. She has been off and on antibiotics for a long period of time. She was last on minocycline for 1 month and has been off antibiotics for one week at this time. She reports that she has been getting more weak at home. She says that she tried to stand up and had a shooting pain of her right leg. She does not report any fevers or chills at home. She denies any shortness of breath or chest pain. She denies any abdominal pain, nausea, vomiting, diarrhea, or dysuria. Subjective/Events-last exam She continues to have right leg pain. She denies any fevers or chills. She denies any chest pain or shortness of breath. She denies any abdominal pain, nausea, or vomiting. She has been eating and drinking well. Objective Exam Vital Signs Vital Signs Date Time Temp Pulse Resp B/P (MAP) Pulse Ox O2 Delivery O2 Flow Rate FiO2 04/16/19 10:06 92 Room Air 04/16/19 08:00 36.8 95 20 150/77 (101) 04/15/19 21:00 3.00 04/13/19 08:39 21 Capillary Refill : Less Than 3 Seconds General Appearance: No Apparent Distress, Obese HEENT: PERRL/EOMI, Pharynx Normal Neck: Normal Inspection, Supple Respiratory: Lungs Clear, Normal Breath Sounds, No Respiratory Distress Cardiovascular: Regular Rate, Rhythm, No Murmur Gastrointestinal: Normal Bowel Sounds, Non Tender, Soft Extremity: Swelling, Other (Lymphedema, right lower extremity wound) Neurologic/Psychiatric: Alert, Oriented x3, No Motor/Sensory Deficits, Normal Mood/Affect Skin: Other (Right lower extremity wound with Yonny bandage in place) Results/Procedures Lab Laboratory Tests 04/16/19 04:15 Patient resulted labs reviewed. Imaging: Reviewed Imaging Report Assessment/Plan Assessment and Plan Assess & Plan/Chief Complaint Sepsis Nonhealing wound of right lower extremity Osteomyelitis Pseudomonas aeruginosa bacteremia CT revealed early signs of osteomyelitis Angiogram did not reveal any peripheral vascular disease Blood cultures positive for pseudomonas aeruginosa Wound culture growing staph, Pseudomonas, and Proteus Continue vancomycin and cefepime Will require long-term antibiotics Continue wound care Plan for possible transfer to the [facility] for ongoing antibiotics and other therapies Type II diabetes mellitus Sliding scale insulin Debility PT/OT consulted Hypertension Paroxysmal atrial fibrillation Hyperlipidemia Continue home meds DVT prophylaxis: Already receiving therapeutic anticoagulation Diagnosis/Problems Diagnosis/Problems (1) Sepsis Status: Acute (2) Morbid obesity Status: Chronic (3) T2DM (type 2 diabetes mellitus) Status: Chronic (4) Non-healing ulcer of right ankle Status: Chronic Qualifiers: Non-pressure ulcer stage: limited to breakdown of skin Qualified Codes: L97.311 - Non-pressure chronic ulcer of right ankle limited to breakdown of skin (5) Chronic wound of extremity Status: Chronic (6) Gram-negative bacteremia Status: Acute (7) Debility Status: Acute (8) Acute osteomyelitis of right lower leg Status: Acute Clinical Quality Measures DVT/VTE Risk/Contraindication: Risk Factor Score Per Nursin RFS Level Per Nursing on Admit: 4+=Very High JE WOODARD MD Apr 16, 2019 11:51
[2019-04-16 12:00] VITALS: BP 179/79
[2019-04-16 16:00] VITALS: BP 136/65
[2019-04-16] MEDS: VANCOMYCIN INJECTION 2,000 MG in NS IV 500 ML 500 ML IV SCH (17:28)
[2019-04-16 20:00] VITALS: BP 145/61
[2019-04-16] MEDS: MONTELUKAST 10 MG (SINGULAIR) TAB PO SCH (20:57)
[2019-04-17] VITALS: BP 141/65
[2019-04-17] MEDS: ADVAIR HFA 115/21 MCG INHALER 8 GM IH SCH ×2 (01:39→07:22)
[2019-04-17] MEDS: NS IV 1000 ML 1,000 ML IV SCH ×3 (02:13→08:05)
[2019-04-17] MEDS: RT-ALBUTEROL/IPRATROPIUM 3 ML (DUONEB) VIAL INH SCH ×3 (02:24→11:47)
[2019-04-17 04:00] VITALS: BP 175/73
[2019-04-17] MEDS ORDERED: WATER (STERILE) FOR INJECTION 10 ML ONE ×2 (05:10→12:33)
[2019-04-17] MEDS ORDERED: CEFEPIME 1 GM (MAXIPIME) VIAL ONE ×2 (05:10→12:33)
[2019-04-17] MEDS: CEFEPIME INJECTION 1,000 MG in WATER (STERILE) FOR INJECTION 10 ML IV SCH (05:45)
[2019-04-17 05:54] LABS: BASOPHILS % (AUTO) 0 % (0-10); EOSINOPHILS # (AUTO) 0.1 10^3/uL (0.0-0.3); EOSINOPHILS % (AUTO) 1 % (0-10); HEMATOCRIT 27 % (35-52); HEMOGLOBIN 8.4 G/DL (11.5-16.0); LYMPHOCYTES # (AUTO) 1.1 X 10^3 (1.0-4.0); LYMPHOCYTES % (AUTO) 7 % (12-44); MEAN CORPUSCULAR HEMOGLOBIN 30 PG (25-34); MEAN CORPUSCULAR HGB CONC 32 G/DL (32-36); MEAN CORPUSCULAR VOLUME 94 FL (80-99); MEAN PLATELET VOLUME 8.9 FL (7.4-10.4); MONOCYTES # (AUTO) 1.5 X 10^3 (0.0-1.0); MONOCYTES % (AUTO) 10 % (0-12); NEUTROPHILS # (AUTO) 12.4 X 10^3 (1.8-7.8); NEUTROPHILS % (AUTO) 82 % (42-75); PLATELET COUNT 328 10^3/uL (130-400); RED CELL DISTRIBUTION WIDTH 12.9 % (10.0-14.5); WHITE BLOOD COUNT 15.2 10^3/uL (4.3-11.0)
[2019-04-17 06:16] LABS: CALCIUM 8.3 MG/DL (8.5-10.1); CREATININE SERUM 1.05 MG/DL (0.60-1.30); MAGNESIUM 1.7 MG/DL (1.6-2.4); POTASSIUM 3.2 MMOL/L (3.6-5.0)
[2019-04-17] MEDS: inSUlin ASPART (NovoLOG) 1 UNIT/0.01 ML (CHARGE PER UNIT) SC SCH ×2 (06:48→12:26)
[2019-04-17 08:00] VITALS: BP 136/63
[2019-04-17] MEDS: MAGNESIUM 1 GM/100 ML IVPB 100 ML IV SCH ×2 (08:05→09:20)
--- NOTE | 2019-04-17 08:07 | Cardiology Progress Note ---
Subjective Date Seen by Provider: Apr 17, 2019 Time Seen by Provider: 08:02 Subjective/Events-last exam Pt feeling alot better today. Denies any pain in groin from angiography procedure. Denies any chest pain, palpitations, or any other cardiac sx. Review of Systems General: No Chills, No Night Sweats HEENT: No Head Aches, No Visual Changes Pulmonary: No Dyspnea, No Cough Cardiovascular: No: Chest Pain, Palpitations Gastrointestinal: No: Nausea, Vomiting Musculoskeletal: leg pain; No: back pain Objective-Cardiology Exam Last Set of Vital Signs Vital Signs 04/13/19 04/15/19 04/17/19 08:39 21:00 08:00 Temp 37.2 Pulse 86 Resp 18 B/P (MAP) 136/63 (87) Pulse Ox 91 O2 Delivery Room Air O2 Flow Rate 3.00 FiO2 21 Capillary Refill : Less Than 3 Seconds I&O Intake and Output 04/17/19 00:00 Intake Total 3360 ml Output Total 650 ml Balance 2710 ml Intake Oral 2840 ml IV Total 520 ml Output Urine Total 650 ml # Voids 2 General: Alert, Oriented X3 HEENT: Atraumatic, PERRLA Neck: Supple, No JVD Lungs: Other (Dinished breath sounds, may be partially to body habitus ) Heart: Regular Rate, Normal S1, Normal S2, No Murmurs Extremities: No Clubbing, No Cyanosis Skin: Other (wound on RLE, dressing changed yesterday) Neuro: Sensation Intact, Cranial Nerves 3-12 NL Results Lab Laboratory Tests 04/17/19 05:45 A/P-Cardiology Admission Diagnosis BLE weakness, nonhealing wound RLE PAF HTN HLP Assessment/Plan Generalized weakness, managed by primary care team. Paroxysmal atrial fibrillation-History of CHRISTOS with successful cardioversion January 2018. She is maintained on amiodarone, Toprol and Eliquis. Continue to monitor History of chest pain, no recent episodes of chest pain, however she has multiple risk factors for underlying coronary artery disease. Was scheduled for stress test as outpatient in January 2018, but test was not done. Consider stress test as outpatient. Nonhealing wound to RLE, follows with wound care. Peripheral Arteriogram on showed Tortuous arterial system, no significant obstructive disease in both lower extremities, ulcers are probably venous Hypokalemia, recently started on ALEX inhibitor. Receiving replacement. continue to monitor Neutrophilic leucocytosis and Wound culture shows staph aureus, on Vancomycin and Cefepime. WBC has decreased since yesterday. Managed by primary care team .Continue to monitor Hypertension,persistent despite b-blockers and Lasix. still in 180s/70s. Cr is 1.05. Was started on 10mg Lisinopril but continues to be hypertensive. Will recheck BP again today after all BP meds are given Hyperlipidemia, monitored as outpatient Iron Deficiency Anemia, followed by Dr. Roblero and Dr. Gaines Diabetes mellitus, followed and managed by primary care physician. Bronchial asthma, receiving Advair COPD, obstructive sleep apnea using C Pap machine. Nonobstructive carotid artery stenosis-carotid duplex done Jan 2018. Continue to monitor. Clinical Quality Measures DVT/VTE Risk/Contraindication: Risk Factor Score Per Nursin RFS Level Per Nursing on Admit: 4+=Very High Supervisory-Addendum Brief Verification & Attestation Participated in pt care: history, MDM, physical Personally performed: exam, history, MDM, supervision of care Care discussed with: Medical Student Procedures: n/a Results interpretation: Verified all documentation Verification and Attestation of Medical Student E/M Service A medical student performed and documented this service in my presence. I reviewed and verified all information documented by the medical student and made modifications to such information, when appropriate. I personally performed the physical exam and medical decision making. I made few modifications to the note using Italic font Lilia Whittington, Apr 17, 2019,10:29 DESI YEPEZ [facility] Apr 17, 2019 08:07 LILIA WHITTINGTON MD Apr 17, 2019 10:30
[2019-04-17] MEDS: FUROSEMIDE 40 MG (LASIX) TAB PO SCH (08:08)
[2019-04-17] MEDS: lisINopril 10 MG (PRINIVIL) TABLET PO SCH (08:09)
[2019-04-17] MEDS: APIXABAN 5 MG (ELIQUIS) TABLET PO SCH (08:09)
[2019-04-17] MEDS: SENNOSIDES 8.6 MG (SENOKOT) TAB PO SCH (08:09)
[2019-04-17] MEDS: DOCUSATE SODIUM 100 MG (COLACE) CAP PO SCH (08:09)
[2019-04-17] MEDS ORDERED: KCL 20 MEQ TAB (K-DUR) PO NR (10:00)
[2019-04-17] MEDS ORDERED: ACET325T49 PO (10:37)
[2019-04-17] MEDS ORDERED: CEFE1FRO IV (10:37)
[2019-04-17] MEDS ORDERED: VANC2PIG IV (10:37)
[2019-04-17 12:00] VITALS: BP 146/63
[2019-04-17] MEDS: AMIODARONE 200 MG (CORDARONE) TAB PO SCH (12:39)
[2019-04-17] MEDS: meTOproloL SUCCINATE 50 MG (TOPROL XL) TAB PO SCH (12:39)
--- NOTE | 2019-04-17 14:31 | Discharge Summary ---
Discharge Summary Hospital Course Was the Problem List Reviewed?: Yes Problems/Dx: (1) Sepsis Status: Resolved (2) Morbid obesity Status: Chronic (3) T2DM (type 2 diabetes mellitus) Status: Chronic (4) Non-healing ulcer of right ankle Status: Chronic Qualifiers: Qualified Codes: L97.311 - Non-pressure chronic ulcer of right ankle limited to breakdown of skin (5) Chronic wound of extremity Status: Chronic (6) Gram-negative bacteremia Status: Acute (7) Debility Status: Acute (8) Acute osteomyelitis of right lower leg Status: Acute Hospital Course Date of Admission: Apr 12, 2019 at 16:58 Admission Diagnosis : sepsis Family Physician/Provider: John Mccartney MD Date of Discharge: 04/17/19 Discharge Diagnosis: osteomyelitis Hospital Course: Felipa Vasquez is a 74-year-old female who presented with fevers and leukocytosis and was admitted with osteomyelitis. Initial x-rays were negative but further imaging with CT revealed early signs of osteomyelitis. She was treated with vancomycin and cefepime. Her blood cultures turned positive for Pseudomonas aeruginosa. Her wound cultures are positive for MRSA, pseudomonas, and Proteus. She underwent a peripheral angiogram to assess for peripheral vascular disease and there is no significant arterial stenosis noted. She was transferred to [facility] for ongoing treatment and cares. Labs and Pending Lab Test: Laboratory Tests 04/16/19 15:08: Glucometer 184H 04/16/19 20:57: Glucometer 198H 04/17/19 05:45: White Blood Count 15.2H, Red Blood Count 2.81L, Hemoglobin 8.4L, Hematocrit 27L, Mean Corpuscular Volume 94, Mean Corpuscular Hemoglobin 30, Mean Corpuscular Hemoglobin Concent 32, Red Cell Distribution Width 12.9, Platelet Count 328, Mean Platelet Volume 8.9, Neutrophils (%) (Auto) 82H, Lymphocytes (%) (Auto) 7L, Monocytes (%) (Auto) 10, Eosinophils (%) (Auto) 1, Basophils (%) (Auto) 0, Neutrophils # (Auto) 12.4H, Lymphocytes # (Auto) 1.1, Monocytes # (Auto) 1.5H, Eosinophils # (Auto) 0.1, Basophils # (Auto) 0.0, Sodium Level 137, Potassium Level 3.2L, Chloride Level 102, Carbon Dioxide Level 23, Anion Gap 12, Blood Urea Nitrogen 17, Creatinine 1.05, Estimat Glomerular Filtration Rate 51, BUN/ Creatinine Ratio 16, Glucose Level 133H, Calcium Level 8.3L, Magnesium Level 1.7 04/17/19 11:55: Glucometer 213H Microbiology 04/12/19 Influenza Types A,B Antigen (ASHOK) - Final, Complete 04/12/19 Blood Culture - Final, Complete Pseudomonas aeruginosa See Comments 04/12/19 Gram Stain - Final, Complete 04/12/19 Wound Culture - Final, Complete Staphylococcus aureus Staphylococcus aureus#2 Pseudomonas aeruginosa Proteus mirabilis Home Meds Active Acetaminophen 325 Mg Tablet 650 Mg PO Q4H PRN 30 Days Vancomycin 2 Gram/400 ml Bag (Vancomycin/Water For Inj (Peg)) 2 Gm/400 Ml Piggyback 2 Gm IV DAILY 40 Days Cefepime 1 gm Injection (Cefepime HCl/Dextrose, Iso-Osm) 1 Gm/50 Ml Froz.piggy 1 Gm IV Q6H 40 Days Reported K-Tab ER (Potassium Chloride) 10 Meq Tablet.er 10 Meq PO DAILY Vitamin D-3 (Cholecalciferol (Vitamin D3)) 2,000 Unit Tablet 2,000 Unit PO DAILY Aranesp (Darbepoetin Felice in Polysorbat) 40 Mcg/1 Ml Vial IV EVERY 3 WEEKS IF HEMOGLOBIN >11 = 20MCG Metoprolol Succinate 50 Mg Tab.er.24h 50 Mg PO 1200 Amiodarone HCl 200 Mg Tablet 200 Mg PO 1200 Tramadol HCl 50 Mg Tablet 50-100 Mg PO Q6H PRN Calcium Carbonate 600 Mg Tablet 600 Mg PO DAILY Eliquis (Apixaban) 5 Mg Tablet 5 Mg PO 1200,2100 Magnesium Citrate 125 Mg Capsule 250 Mg PO HS TAKES 2 (125MG) CAPSULES Furosemide 40 Mg Tablet 60 Mg PO DAILY LAST FILLED #60 19 TAKES 1 & 1/2 (40MG) TABLET Ventolin Hfa (Albuterol Sulfate) 18 Gm Hfa.aer.ad 2 Puff INH Q4H PRN Advair 250-50 Diskus (Fluticasone/Salmeterol) 1 Each Blst.w.dev 1 Puff INH BID Atorvastatin Calcium 40 Mg Tablet 40 Mg PO HS Montelukast Sodium 10 Mg Tablet 10 Mg PO HS Vitamin C (Ascorbate Calcium) 500 Mg Tablet 500 Mg PO DAILY Folic Acid 1 Mg Tablet 1 Mg PO DAILY LAST FILLED #30 5-7-19 Vitamin B-12 (Cyanocobalamin) 100 Mcg Tablet 200 Mcg PO DAILY TAKES 2 (100MCG) TABLETS Assessment/Pt Instructions Patient transferred to [facility]. Ongoing cares per their facility. He will need at least 6 weeks of vancomycin and cefepime for osteomyelitis. Discharge Planning: <30 minutes discharge planning Discharge Instructions Discharge Diet: No Restrictions Activity as Tolerated: Yes Discharge Physical Examination Vital Signs Vital Signs Date Time Temp Pulse Resp B/P (MAP) Pulse Ox O2 Delivery O2 Flow Rate FiO2 04/17/19 12:00 36.8 85 20 146/63 (90) 90 Room Air 04/15/19 21:00 3.00 04/13/19 08:39 21 General Appearance: No Apparent Distress, WD/WN, Obese HEENT: PERRL/EOMI, Pharynx Normal Respiratory: Lungs Clear, Normal Breath Sounds, No Respiratory Distress Cardiovascular: Regular Rate, Rhythm, No Murmur Gastrointestinal: Normal Bowel Sounds, Non Tender, Soft Extremity: Swelling, Other (lymphedema) Skin: Other (right lower extremity wound) Neurologic/Psychiatric: Alert, Oriented x3, No Motor/Sensory Deficits, Normal Mood/Affect Allergies: Coded Allergies: NSAIDS (Non-Steroidal Anti-Inflamma (Verified Allergy, Severe, BLOOD IN URINE, 06/23/18) celecoxib (Unverified Allergy, Severe, BLOOD IN URINE, 06/23/18) penicillin G (Verified Allergy, Unknown, HAS RECEIVED ANCEF W/O ISSUE, 10/13/15) Copy Copies To 1: JOHN MCCARTNEY MD Discharge Summary Date of Admission Apr 12, 2019 at 16:58 Date of Discharge Discharge Date: Apr 17, 2019 Discharge Time: 14:29 Admission Diagnosis Sepsis Consults/Procedures Consulations Cardiology Discharge Diagnosis Osteomyelitis (1) Sepsis Status: Resolved (2) Morbid obesity Status: Chronic (3) T2DM (type 2 diabetes mellitus) Status: Chronic (4) Non-healing ulcer of right ankle Status: Chronic Qualifiers: Qualified Codes: L97.311 - Non-pressure chronic ulcer of right ankle limited to breakdown of skin (5) Chronic wound of extremity Status: Chronic (6) Gram-negative bacteremia Status: Acute (7) Debility Status: Acute (8) Acute osteomyelitis of right lower leg Status: Acute Clinical Quality Measures DVT/VTE Risk/Contraindication: Risk Factor Score Per Nursin RFS Level Per Nursing on Admit: 4+=Very High JE WOODARD MD Apr 17, 2019 14:30
[2019-04-17] MEDS ORDERED: CEFEPIME INJECTION 1,000 MG in WATER (STERILE) FOR INJECTION 10 ML IV SCH (18:00)
== END 2019-04-17 14:15 | DRG 872 ==
LOC: EDUNIT# 14:43 → ER 14:45 → 4TH 16:58 → ICU 04-15 16:24 → 4TH 04-15 21:47
PROVIDERS: ADMIT Internal Medicine; ATTEND Internal Medicine
DX: A41.52 Sepsis due to Pseudomonas (principal); L03.115 Cellulitis of right lower limb; L97.311 Non-pressure chronic ulcer of right ankle limited to breakdown of skin; M86.9 Osteomyelitis, unspecified; Z68.43 Body mass index [BMI] 50.0-59.9, adult; E11.69 Type 2 diabetes mellitus with other specified complication; I89.0 Lymphedema, not elsewhere classified; M25.561 Pain in right knee; I48.0 Paroxysmal atrial fibrillation; I10 Essential (primary) hypertension; E78.00 Pure hypercholesterolemia, unspecified; D50.9 Iron deficiency anemia, unspecified; J44.9 Chronic obstructive pulmonary disease, unspecified; G47.33 Obstructive sleep apnea (adult) (pediatric); E66.01 Morbid (severe) obesity due to excess calories; R26.2 Difficulty in walking, not elsewhere classified; M19.91 Primary osteoarthritis, unspecified site; C43.9 Malignant melanoma of skin, unspecified; K44.9 Diaphragmatic hernia without obstruction or gangrene; R53.81 Other malaise; E87.6 Hypokalemia; E78.5 Hyperlipidemia, unspecified; E11.51 Type 2 diabetes mellitus with diabetic peripheral angiopathy without gangrene; Z79.01 Long term (current) use of anticoagulants
CPT/HCPCS: 36415; 71045; 73562; 73590; 73701; 75716; 80048; 80053; 80202; 81000; 82962; 83605; 83735; 84443; 85007; 85025; 85027; 85652; 86141; 87040; 87070; 87077; 87186; 87205; 87804; 94640; 94664; 94760; 96361; 96365

== ENCOUNTER → 2019-04-25 | Outpatient (CLI) | payer MEDICARE ==
[~2019-04-25] MED LIST changes: +ACET325T38 PO; +ACET325T49 PO; +BISA10SU8 RC; +BUDE10.22 IH; +CEFE1FRO IV; +CHOL200059 PO; +DEXT38GE12 PO; +DOCU100C37 PO; +FURO20TA4 PO; +INSU100V SQ; +IPRA3AMP31 IH; +PANT40TA3 PO; +POLY17PO6 PO; +POTA10TA PO; +SNN187T PO; +VANC1.5P12 IV; +VANC2PIG IV; +[UNRECOGNIZED DRUG - CODE] PO
[2019-04-25 09:58] LABS: CALCIUM 8.1 MG/DL (8.5-10.1); CREATININE SERUM 2.52 MG/DL (0.60-1.30); POTASSIUM 3.1 MMOL/L (3.6-5.0)
== END ==
LOC: LABNPT 07:30
PROVIDERS: ATTEND Internal Medicine
DX: M86.9 Osteomyelitis, unspecified (principal)
CPT/HCPCS: 80048; 80202

== ENCOUNTER 2019-04-26 09:43 | Inpatient (IN) | payer MEDICARE ==
[~2019-04-26] VITALS: Ht 162.6 cm; Wt 141.7 kg
[~2019-04-26 09:43] MED LIST changes: -ACET325T38 PO; -BISA10SU8 RC; -BUDE10.22 IH; -DEXT38GE12 PO; -DOCU100C37 PO; -FURO20TA4 PO; -INSU100V SQ; -IPRA3AMP31 IH; -PANT40TA3 PO; -POLY17PO6 PO; -SNN187T PO; -VANC1.5P12 IV; -[UNRECOGNIZED DRUG - CODE] PO
[2019-04-26] MEDS ORDERED: NS IV 1000 ML 1,000 ML IV SCH (09:59)
[2019-04-26 10:06] LABS: BASOPHILS % (AUTO) 0 % (0-10); EOSINOPHILS # (AUTO) 0.2 10^3/uL (0.0-0.3); EOSINOPHILS % (AUTO) 1 % (0-10); HEMATOCRIT 31 % (35-52); HEMOGLOBIN 9.6 G/DL (11.5-16.0); LYMPHOCYTES # (AUTO) 1.1 X 10^3 (1.0-4.0); LYMPHOCYTES % (AUTO) 9 % (12-44); MEAN CORPUSCULAR HEMOGLOBIN 29 PG (25-34); MEAN CORPUSCULAR HGB CONC 31 G/DL (32-36); MEAN CORPUSCULAR VOLUME 95 FL (80-99); MEAN PLATELET VOLUME 8.9 FL (7.4-10.4); MONOCYTES # (AUTO) 0.7 X 10^3 (0.0-1.0); MONOCYTES % (AUTO) 5 % (0-12); NEUTROPHILS # (AUTO) 10.3 X 10^3 (1.8-7.8); NEUTROPHILS % (AUTO) 84 % (42-75); PLATELET COUNT 432 10^3/uL (130-400); RED CELL DISTRIBUTION WIDTH 13.7 % (10.0-14.5); WHITE BLOOD COUNT 12.3 10^3/uL (4.3-11.0)
--- NOTE | 2019-04-26 10:06 | ED General ---
General Chief Complaint: General Problems/Pain Stated Complaint: CELLULITIS LEG/ELEV VANC TROUGH Source of Information: Patient, EMS, [facility] Records Exam Limitations: No Limitations History of Present Illness Date Seen by Provider: Apr 26, 2019 Time Seen by Provider: 09:43 Initial Comments Patient presents to the ER by EMS from [facility] with chief complaint of elevated vancomycin trough and creatinine. She is known to Dr. Roblero primary care and Dr. Olivia for wound care and Dr. Gaines for anemia on iron. A few weeks ago she was hospitalized for her cellulitis and osteomyelitis of her right lower extremity. She had an Angiocath of her legs that did not demonstrate any significant arterial stenosis by Dr. Whittington. She was sent to [facility] for long-term antibiotics and after 6 days she was transferred back to [place], [place]. She's been there for about a week. 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 Previous labs from a couple months ago demonstrated creatinine running around 0.9-1.1. She had a critically high vancomycin trough of 79 yesterday as well as an elevated creatinine serum of 2.5 with a GFR of 19. They gave her a liter of fluids and rechecked it this morning and found her creatinine to be 3.0 and GFR 15 as well as a vancomycin level of 73. Her potassium yesterday was 3.1. She's not having any chest pain shortness of breath fever chills cough or tachycardia. She does have some pain in her right lower extremity which she typically rotates between thousand milligrams of Tylenol and 100 mg of tramadol and this gives her good pain control. She does suffer from myelodysplastic syndrome, history of hypertension, obstructive sleep apnea, chronic ulcers of the lower extremities, type 2 diabetes without dependence on insulin, morbid obesity and lymphedema. Allergies and Home Medications Allergies Coded Allergies: NSAIDS (Non-Steroidal Anti-Inflamma (Verified Allergy, Severe, BLOOD IN URINE, 06/23/18) celecoxib (Unverified Allergy, Severe, BLOOD IN URINE, 06/23/18) penicillin G (Verified Allergy, Unknown, HAS RECEIVED ANCEF W/O ISSUE, 10/13/15) Home Medications Acetaminophen 325 Mg Tablet, 650 MG PO Q4H PRN for MILD PAIN OR FEVER Prescribed by: JE WOODARD on 04/17/19 1037 Albuterol Sulfate 18 Gm Hfa.aer.ad, 2 PUFF INH Q4H PRN for SHORTNESS OF BREATH, (Reported) Amiodarone HCl 200 Mg Tablet, 200 MG PO 1200, (Reported) Apixaban 5 Mg Tablet, 5 MG PO 1200,2100, (Reported) Ascorbate Calcium 500 Mg Tablet, 500 MG PO DAILY, (Reported) Atorvastatin Calcium 40 Mg Tablet, 40 MG PO HS, (Reported) Calcium Carbonate 600 Mg Tablet, 600 MG PO DAILY, (Reported) Cefepime HCl/Dextrose, Iso-Osm 1 Gm/50 Ml Froz.piggy, 1 GM IV Q6H Prescribed by: JE WOODARD on 04/17/19 1037 Cholecalciferol (Vitamin D3) 2,000 Unit Tablet, 2,000 UNIT PO DAILY, (Reported) Cyanocobalamin 100 Mcg Tablet, 200 MCG PO DAILY, (Reported) TAKES 2 (100MCG) TABLETS Darbepoetin Felice in Polysorbat 40 Mcg/1 Ml Vial, IV EVERY 3 WEEKS, (Reported) IF HEMOGLOBIN >11 = 20MCG Fluticasone/Salmeterol 1 Each Blst.w.dev, 1 PUFF INH BID, (Reported) Folic Acid 1 Mg Tablet, 1 MG PO DAILY, (Reported) LAST FILLED #30 5-7-19 Furosemide 40 Mg Tablet, 60 MG PO DAILY, (Reported) LAST FILLED #60 5-8-19 TAKES 1 & 1/2 (40MG) TABLET Magnesium Citrate 125 Mg Capsule, 250 MG PO HS, (Reported) TAKES 2 (125MG) CAPSULES Metoprolol Succinate 50 Mg Tab.er.24h, 50 MG PO 1200, (Reported) Montelukast Sodium 10 Mg Tablet, 10 MG PO HS, (Reported) Potassium Chloride 10 Meq Tablet.er, 10 MEQ PO DAILY, (Reported) Tramadol HCl 50 Mg Tablet, 50-100 MG PO Q6H PRN for PAIN-MODERATE, (Reported) Vancomycin/Water For Inj (Peg) 2 Gm/400 Ml Piggyback, 2 GM IV DAILY Prescribed by: JE WOODARD on 04/17/19 1037 Patient Home Medication List Home Medication List Reviewed: Yes Review of Systems Review of Systems Constitutional: No chills, No diaphoresis, No fever, No malaise, No weakness EENTM: No hearing loss, No ear pain Respiratory: No cough, No short of breath Cardiovascular: No chest pain, No edema Gastrointestinal: No abdominal pain, No nausea, No vomiting Genitourinary: No discharge, No dysuria Musculoskeletal: see HPI; No back pain, No joint pain Skin: see HPI, other (chronic ulcers and lymphedema bilateral lower extremities) Psychiatric/Neurological: Anxiety; Denies Depressed Hematologic/Lymphatic: See HPI, Anemia; Denies Easy Bleeding All Other Systems Reviewed Negative Unless Noted: Yes Past Dwucpzi-Qmtycd-Lakfse Hx Patient Social History Alcohol Use: Denies Use Recreational Drug Use: No 2nd Hand Smoke Exposure: No Recent Foreign Travel: No Contact w/Someone Who Travel: No Recent Hopitalizations: Yes (REHAB) Immunizations Up To Date Tetanus Booster (TDap): Unknown Date of Pneumonia Vaccine: Dec 23, 2012 Date of Influenza Vaccine: Dec 24, 2019 Seasonal Allergies Seasonal Allergies: No Past Medical History Respiratory: Yes Asthma, Sleep Apnea, COPD Currently Using CPAP: Yes Currently Using BIPAP: No Cardiac: Yes Atrial Fibrillation, High Cholesterol, Hypertension Neurological: No Female Reproductive Disorders: Denies Sexually Transmitted Disease: No HIV/AIDS: No Genitourinary: Yes Bladder Infection Gastrointestinal: Yes Hiatal Hernia Musculoskeletal: Yes Arthritis Endocrine: Yes Diabetes, Non-Insulin dep HEENT: No Hearing Impairment: Denies Cancer: No Melanoma Did You Recieve Any Treatments: No Psychosocial: No Integumentary: Yes (ULCERS, osteomyelitis) Blood Disorders: No Adverse Reaction/Blood Tranf: No Family Medical History Dementia 19 MOTHER Diabetes mellitus G8 SISTER Myocardial infarction 19 FATHER Neoplasm G8 SISTER Heart Disease a-fib in siblings Physical Exam Vital Signs Vital Signs - First Documented 04/26/19 09:43 Temp 36.8 Pulse 74 Resp 17 B/P (MAP) 143/66 (91) Pulse Ox 98 O2 Delivery Room Air Capillary Refill : Height, Weight, BMI Height: 5'4.00" Weight: 309lbs. 14.0oz. 140.424272xt; 51.51 BMI Method:Stated General Appearance: Anxious, Obese Eyes: Bilateral Eye Normal Inspection, Bilateral Eye PERRL, Bilateral Eye EOMI HEENT: PERRL/EOMI, Pharynx Normal; No Moist Mucous Membranes Neck: Full Range of Motion, Normal Inspection Respiratory: Lungs Clear, Normal Breath Sounds, No Accessory Muscle Use, No Res piratory Distress Cardiovascular: Regular Rate, Rhythm, No Edema, Normal Peripheral Pulses Gastrointestinal: Normal Bowel Sounds, Non Tender, Soft Back: Normal Inspection, No Vertebral Tenderness Extremity: Normal Capillary Refill, Normal Inspection, No Pedal Edema Neurologic/Psychiatric: Alert, Oriented x3 Skin: Other (nonerythematous, nonindurated, nondraining, dressed stasis ulcers of the right lower extremity) Progress/Results/Core Measures Suspected Sepsis SIRS Temperature: Pulse: Respiratory Rate: Laboratory Tests 04/26/19 09:50: White Blood Count 12.3H Blood Pressure / Mean: Laboratory Tests 04/26/19 09:50: Creatinine 3.18#H, Platelet Count 432H, Total Bilirubin 0.4 Results/Orders Lab Results Laboratory Tests Test 04/26/19 09:50 Range/Units White Blood Count 12.3 H 4.3-11.0 10^3/uL Red Blood Count 3.26 L 4.35-5.85 10^6/uL Hemoglobin 9.6 L 11.5-16.0 G/DL Hematocrit 31 L 35-52 % Mean Corpuscular Volume 95 80-99 FL Mean Corpuscular Hemoglobin 29 25-34 PG Mean Corpuscular Hemoglobin Concent 31 L 32-36 G/DL Red Cell Distribution Width 13.7 10.0-14.5 % Platelet Count 432 H 130-400 10^3/uL Mean Platelet Volume 8.9 7.4-10.4 FL Neutrophils (%) (Auto) 84 H 42-75 % Lymphocytes (%) (Auto) 9 L 12-44 % Monocytes (%) (Auto) 5 0-12 % Eosinophils (%) (Auto) 1 0-10 % Basophils (%) (Auto) 0 0-10 % Neutrophils # (Auto) 10.3 H 1.8-7.8 X 10^3 Lymphocytes # (Auto) 1.1 1.0-4.0 X 10^3 Monocytes # (Auto) 0.7 0.0-1.0 X 10^3 Eosinophils # (Auto) 0.2 0.0-0.3 10^3/uL Basophils # (Auto) 0.0 0.0-0.1 10^3/uL Sodium Level 140 135-145 MMOL/L Potassium Level 3.1 L 3.6-5.0 MMOL/L Chloride Level 103 98-107 MMOL/L Carbon Dioxide Level 23 21-32 MMOL/L Anion Gap 14 5-14 MMOL/L Blood Urea Nitrogen 54 H 7-18 MG/DL Creatinine 3.18 #H 0.60-1.30 MG/DL Estimat Glomerular Filtration Rate 14 BUN/Creatinine Ratio 17 Glucose Level 158 H 70-105 MG/DL Calcium Level 8.5 8.5-10.1 MG/DL Corrected Calcium 9.5 8.5-10.1 MG/DL Total Bilirubin 0.4 0.1-1.0 MG/DL Aspartate Amino Transf (AST/SGOT) 16 5-34 U/L Alanine Aminotransferase (ALT/SGPT) 14 0-55 U/L Alkaline Phosphatase 119 40-136 U/L C-Reactive Protein High Sensitivity 15.92 H 0.00-0.50 MG/DL Total Protein 6.8 6.4-8.2 GM/DL Albumin 2.7 L 3.2-4.5 GM/DL My Orders Orders - TEZ PURI Ed Iv/Invasive Line Start (04/26/19 09:59) Ns Iv 1000 Ml (Sodium Chloride 0.9%) (04/26/19 09:59) Cbc With Automated Diff (04/26/19 09:59) Comprehensive Metabolic Panel (04/26/19 09:59) Hs C Reactive Protein (04/26/19 09:59) Catheter(Urinary) Insert & Ass 03,15 (04/26/19 11:14) Vital Signs/I&O 04/26/19 09:43 Temp 36.8 Pulse 74 Resp 17 B/P (MAP) 143/66 (91) Pulse Ox 98 O2 Delivery Room Air Capillary Refill : Progress Note : Time: 10:20 Progress Note We'll give her a liter fluids and she may need nephrology consultation so we'll look towards [place] for placement for fluids and management of elevated vancomycin levels. Aseptic vital signs and her wounds look okay at this time. She is on long-term antibiotics for osteomyelitis. Departure Communication (Admissions) Time/Spoke to Admitting Phy: 11:00 Discussed the case with Dr. Golden she agrees to admit the patient to the floor. IV fluid resuscitation. [facility] Communication (PCP) Discussed case with Dr. Roblero and he agrees with the plan. Impression Primary Impression: supratherapeutic vancomycin Additional Impression: Acute kidney injury (nontraumatic) Disposition: ADMITTED INPATIENT Condition: Stable Admissions Decision to Admit Reason: Admit from ER (General) Decision to Admit/Date: Apr 26, 2019 Time/Decision to Admit Time: 11:00 Departure-Patient Inst. Referrals: JOHN ROBLERO MD (PCP/Family) Primary Care Physician TEZ PURI Apr 26, 2019 10:06
[2019-04-26 10:20] LABS: ALBUMIN 2.7 GM/DL (3.2-4.5); BILIRUBIN,TOTAL 0.4 MG/DL (0.1-1.0); CALCIUM 8.5 MG/DL (8.5-10.1); CREATININE SERUM 3.18 MG/DL (0.60-1.30); POTASSIUM 3.1 MMOL/L (3.6-5.0); TOTAL PROTEIN 6.8 GM/DL (6.4-8.2)
--- NOTE | 2019-04-26 11:10 | NUR ---
Pt resting comfortably in bed; denies needs at this time.
[2019-04-26 11:40] LABS: BILIRUBIN,URINE NEGATIVE (NEGATIVE); CLARITY,URINE CLEAR; COLOR,URINE YELLOW; GLUCOSE, URINE (UA) NEGATIVE (NEGATIVE); KETONES,URINE NEGATIVE (NEGATIVE); LEUKOCYTE ESTERASE ,URINE NEGATIVE (NEGATIVE); NITRITE,URINE NEGATIVE (NEGATIVE); PH,URINE 5.5 (5-9); PROTEIN,URINE NEGATIVE (NEGATIVE)
[2019-04-26 11:59] LABS: BACTERIA,URINE NEGATIVE /HPF; SQUAMOUS EPITHELIAL CELL,UR RARE /HPF
[2019-04-26 12:15] VITALS: BP 178/74
[2019-04-26] MEDS ORDERED: POTASSIUM CHLORIDE INJ 40 MEQ in 1/2 NS IV SOLUTION 1,000 ML IV SCH (12:15)
[2019-04-26] MEDS ORDERED: ONDANSETRON 4 MG/2 ML (SDV) Z0FRAN IV PRN (12:15)
[2019-04-26] MEDS ORDERED: ACETAMINOPHEN 500 MG TAB (TYLENOL) PO PRN (12:15)
--- NOTE | 2019-04-26 12:30 | NUR ---
ARNOL DIAZ admitted to room 419-1, with an admitting diagnosis of SUPRATHERAPUETIC VANC LEVELS , on 04/26/19 from ED via [facility], accompanied by staff. ARNOL DIAZ introduced to surroundings, call light, bed controls, phone, TV, temperature control, lights, meal times, smoking policy, visitor policy, side rail policy, bathrooms and showers. Patient Rights given to patient in the handbook. ARNOL DIAZ verbalizes understanding that [facility] is not responsible for the loss or damage to any personal effects or valuables that are kept in the patients possession during their hospitalization. The following Patient Care Plans were discussed with the patient: Discharge Planning, pain management, dehydration, and medications. ARNOL DIAZ verbalizes understanding of Interdisciplinary Patient Education. Patient and/or family were informed about the Rapid Response Team and its purpose.
[2019-04-26 12:42] VITALS: BP 149/66
[2019-04-26] MEDS ORDERED: HEParin (CENTRAL IV FLUSH) 500 UNIT/5 ML SYR IV SCH (14:00)
[2019-04-26] MEDS: AMIODARONE 200 MG (CORDARONE) TAB PO SCH (14:02)
[2019-04-26] MEDS ORDERED: KCL 20 MEQ TAB (K-DUR) PO ONE (14:15)
[2019-04-26] MEDS ORDERED: meTOproloL SUCCINATE 50 MG (TOPROL XL) TAB PO NR (14:15)
[2019-04-26 16:18] VITALS: BP 164/61
[2019-04-26] MEDS: inSUlin ASPART (NovoLOG) 1 UNIT/0.01 ML (CHARGE PER UNIT) SC SCH ×2 (16:30→20:48)
[2019-04-26] MEDS: NS IV 1000 ML 1,000 ML IV SCH ×2 (16:42→23:21)
[2019-04-26] MEDS: RT-ALBUTEROL/IPRATROPIUM 3 ML (DUONEB) VIAL INH SCH (18:29)
[2019-04-26 19:40] VITALS: BP 161/72
[2019-04-26] MEDS: APIXABAN 5 MG (ELIQUIS) TABLET PO SCH (20:55)
[2019-04-27] VITALS (7 sets, daily range): BP systolic 150–186; BP diastolic 69–81
[2019-04-27 05:48] LABS: BASOPHILS % (AUTO) 0 % (0-10); EOSINOPHILS # (AUTO) 0.1 10^3/uL (0.0-0.3); EOSINOPHILS % (AUTO) 1 % (0-10); HEMATOCRIT 27 % (35-52); HEMOGLOBIN 8.5 G/DL (11.5-16.0); LYMPHOCYTES # (AUTO) 0.8 X 10^3 (1.0-4.0); LYMPHOCYTES % (AUTO) 7 % (12-44); MEAN CORPUSCULAR HEMOGLOBIN 30 PG (25-34); MEAN CORPUSCULAR HGB CONC 31 G/DL (32-36); MEAN CORPUSCULAR VOLUME 95 FL (80-99); MEAN PLATELET VOLUME 8.9 FL (7.4-10.4); MONOCYTES # (AUTO) 0.7 X 10^3 (0.0-1.0); MONOCYTES % (AUTO) 7 % (0-12); NEUTROPHILS # (AUTO) 9.1 X 10^3 (1.8-7.8); NEUTROPHILS % (AUTO) 85 % (42-75); PLATELET COUNT 349 10^3/uL (130-400); RED CELL DISTRIBUTION WIDTH 13.4 % (10.0-14.5); WHITE BLOOD COUNT 10.7 10^3/uL (4.3-11.0)
[2019-04-27 06:08] LABS: CALCIUM 7.9 MG/DL (8.5-10.1); CREATININE SERUM 3.21 MG/DL (0.60-1.30); MAGNESIUM 1.5 MG/DL (1.6-2.4)
[2019-04-27] MEDS: NS IV 1000 ML 1,000 ML IV SCH ×4 (06:13→22:58)
[2019-04-27] MEDS: inSUlin ASPART (NovoLOG) 1 UNIT/0.01 ML (CHARGE PER UNIT) SC SCH ×4 (06:15→21:35)
--- NOTE | 2019-04-27 06:37 | NUR ---
contacted Dr Crowe for consult.
[2019-04-27] MEDS: RT-ALBUTEROL/IPRATROPIUM 3 ML (DUONEB) VIAL INH SCH ×4 (07:10→18:52)
--- NOTE | 2019-04-27 07:12 | Diagnostic Imaging Report ---
Indication: Cardiac enlargement, Port-A-Cath. Comparison: 04/12/2019 Findings: Single view of the chest demonstrates cardiac enlargement with stable central vascular congestion. There is no pneumothorax or effusion. Osseous structures are normal. Impression: Cardiac enlargement with stable central vascular congestion. Dictated by: Dictated on workstation # [id number]
[2019-04-27] MEDS: meTOproloL SUCCINATE 50 MG (TOPROL XL) TAB PO SCH (09:02)
[2019-04-27] MEDS: APIXABAN 5 MG (ELIQUIS) TABLET PO SCH ×2 (09:02→21:35)
[2019-04-27] MEDS: MAGNESIUM 1 GM/100 ML IVPB 100 ML IV SCH ×3 (09:03→11:47)
--- NOTE | 2019-04-27 09:40 | NUR ---
VANC LEVEL REPORTED TO DR. WOODARD
[2019-04-27] MEDS ORDERED: KCL 20 MEQ TAB (K-DUR) PO NR (10:00)
[2019-04-27] MEDS ORDERED: POTASSIUM CL 10MEQ/50ML IVPB 50 ML IV SCH (10:00)
--- NOTE | 2019-04-27 11:04 | Physical Therapy Evaluation ---
PT Evaluation-General Medical Diagnosis Admission Date Apr 26, 2019 at 11:00 Medical Diagnosis: Supratherapeutic Vancomycin, LAURIE Onset Date: Apr 26, 2019 Therapy Diagnosis Therapy Diagnosis: Debility Height/Weight Height (Feet): 5 Height (Inches): 4.00 Weight (Pounds): 309 Weight (Ounces): 14.0 Precautions Precautions/Isolations: Fall Prevention, Standard Precautions Weight Bear Status Right Lower Extremity: Right Weight Bearing/Tolerated Left Lower Extremity: Left Weight Bearing/Tolerated Referral Physician: Zay Reason for Referral: Evaluation/Treatment Medical History Pertinent Medical History: Atrial Fib, Arthritis, DM, HTN Additional Medical History Melanoma. Osteomyelitis, sleep apnea, morbid obesity, lymphedema. Current History Patient presented to [facility] via EMS from [facility] with critical vancomycin level. Patient was previsouly in hospital due to osteomyelitis followed by treatment in [place] with antibiotics and has been back at the [facility] for approximately a week. Reviewed History: Yes Social History Home: Group Home Prior Prior Level of Function SCALE: Activities may be completed with or without assistive devices. 3-Icqmidivpp-qfxramg completes the activity by him/herself with no assistance from a helper. 5-Set-up or Clean-up Assistance-helper sets up or cleans up; patient completes activity. Fletcher assists only prior to or following the activity. 4-Supervision or Touching Assistance-helper provides verbal cues and/or touching/steadying and/or contact guard assistance as patient completes activity. Assistance may be provided throughout the activity or intermittently. 3-Partial/Moderate Assistance-helper does LESS THAN HALF the effort. Fletcher lifts, holds or supports trunk or limbs, but provides less than half the effort. 2-Substantial/Maximal Assistance-helper does MORE THAN HALF the effort. Fletcher lifts or holds trunk or limbs and provides more than half the effort. 8-Aaqbdgwjh-esosxl does ALL the effort. Patient does none of the effort to complete the activity. Or, the assistance of 2 or more helpers is required for the patient to complete the activity. If activity was not attempted, code reason: 7-Patient Refused. 9-Not Applicable-not attempted and the patient did not perform the activity before the current illness, exacerbation or injury. 10-Not Attempted due to Environmental Limitations-(lack of equipment, weather restraints, etc.). 88-Not Attempted due to Medical Conditions or Safety Concerns. Bed Mobility: 2 Transfers (B,C,W/C): 1 Prior Devices Use: Mechanical lift PT Evaluation-Current Subjective Patient agreeable to therapy at this time and states she will try her hardest to do what she can. Pain Numeric Pain Scale: 8 Location: Right Location Body Site: Knee Comment: FLACC Objective Patient Orientation: Normal For Age Attachments: Bello Catheter, IV ROM/Strength ROM Lower Extremities Impaired bilateral knee ROM Strength Lower Extremities Decreased strength gross BLE. Integumentary/Posture Integumentary See nursing notes. Bowel Incontinence: No Bladder Incontinence: Bello Cath Neuromuscular (Tone, Coordination, Reflexes) Grossly intact. Sensory Vision: Functional Hearing: Functional Sensation Right Lower Extremit: Intact Sensation Left Lower Extremity: Intact Transfers Roll Left to Right (QC): 1 Lying to Sitting/Side of Bed(Q: 2 Sit to Stand (QC): 1 (Patient stood with max assist x2 but unable to transfer) Chair/Zwb-ns-Dcsrg Xfer(QC): 1 (Used sit to stand frame to transfer patient) Gait Does the Patient Walk?: No and Walking Goal IS indicated Wheelchair Training Does the Pt Use a Wheelchair?: No Balance Sitting Static: Good Sitting Dynamic: Good Standing Static: Fair Standing Dynamic: Fair Assessment/Needs Patient is able to stand with a max assist x2 but is unable to move or reposition her feet or body for a transfer. Patient performed sit to stand x3 in attempt to transfer. Needed sit to stand frame to perform transfer from bed to chair with patient. Patient needs skilled therapy to build up strength and reach her maximum LOF. Rehab Potential: Fair PT Mcfp Goals Mcfp Goals PT Mcfp Goals Time Frame: May 15, 2019 Roll Left & Right (QC): 3 Sit to Lying (QC): 3 Lying-Sitting on Side/Bed(QC): 3 Sit to Stand (QC): 3 Chair/Rhz-df-Fciol Xfer(QC): 3 Does the Patient Walk: Yes Walk 10 feet (QC): 4 PT Plan Problem List Problem List: Activity Tolerance, Functional Strength, Safety, Balance, Gait, Transfer, Bed Mobility, ROM Treatment/Plan Treatment Plan: Continue Plan of Care Treatment Plan: Bed Mobility, Education, Functional Activity Yimi, Functional Strength, Gait, Safety, Therapeutic Exercise, Transfers Treatment Duration: May 15, 2019 Frequency: 6 times per week Estimated Hrs Per Day: .25 hour per day Patient and/or Family Agrees t: Yes Safety Risks/Education Patient Education: Transfer Techniques Teaching Recipient: Patient Teaching Methods: Discussion Response to Teaching: Reinforcement Needed Discharge Recommendations Therapy Discharge Recommendati: Assisted Living Time/GCodes Time In: 1000 Time Out: 1020 Total Billed Treatment Time: 20 Total Billed Treatment 1 visit EVM 20 KWASI DISLA PT Apr 27, 2019 11:04
[2019-04-27] MEDS: CEFEPIME 1,000 MG/SWFI 10 ML IV PUSH IV SCH ×2 (11:46)
[2019-04-27] MEDS: AMIODARONE 200 MG (CORDARONE) TAB PO SCH (11:47)
[2019-04-27] MEDS ORDERED: FURO20TA4 PO (13:19)
[2019-04-27] MEDS ORDERED: ACET325T38 PO ×2 (13:19→13:28)
[2019-04-27] MEDS ORDERED: DOCU100C37 PO (13:19)
[2019-04-27] MEDS ORDERED: BUDE10.22 IH (13:19)
--- NOTE | 2019-04-27 13:23 | NUR ---
"RD ASSESSMENT PMHx: COPD; hypercholesterolemia; HTN; DM PT INTERACTION: Pt was awake and pleasant during nutrition assessment. Pt states current appetite is poor, and has been this way since her time at [place] in [place]. Note PO intake of 10% x1meal, per chart review. Pt states following a regular diet at home and has no issues with chewing/swallowing foods. Pt states some recent episodes of nausea, but no vomiting. Pt states recent episodes of diarrhea, and that her last BM was 2days ago. Note pt not currently on bowel regimen per chart review. Note pt has presence of wounds, per chart review. ABNORMAL NUTRITION-RELATED LAB VALUES LOW: K 3.0; Mg 1.5 HIGH: BUN 52; cr 3.21; glu 114 Est. kcal needs: 9387-4113 kcal | 15-18 kcal/kg Est. Pro needs: 113-142 g Pro | 0.8-1.0 g Pro/kg PES STATEMENT: Inadequate oral intake (NI-2.1) related to loss of appetite | nausea | diarrhea as evidenced by pt interview | PO intake of 10% x1meal INTERVENTION: Continue with current diet order of CHO 75g/m 0snack diet. Add Ensure HP (vary) to meals TID. Provides 160 kcal and 16 g Pro per serving for perceived benefit to wound healing. Recommend replete Mg, as current levels are low. Will continue to follow and reassess as pt needs and status change. MONITOR/EVALUATE: PO Intake; Plan of Care; Hydration Status; Weight Status; Lab Values Isabel Bryson, MS, RD, LD"
[2019-04-27] MEDS ORDERED: INSU100V SQ (13:28)
[2019-04-27] MEDS ORDERED: [UNRECOGNIZED DRUG - CODE] PO (13:28)
[2019-04-27] MEDS ORDERED: SNN187T PO (13:28)
[2019-04-27] MEDS ORDERED: BISA10SU8 RC (13:28)
[2019-04-27] MEDS ORDERED: METO50TA7 PO (13:28)
[2019-04-27] MEDS ORDERED: DEXT38GE12 PO (13:28)
[2019-04-27] MEDS ORDERED: POLY17PO6 PO (13:28)
[2019-04-27] MEDS ORDERED: IPRA3AMP31 IH (13:28)
[2019-04-27] MEDS ORDERED: PANT40TA3 PO (13:34)
--- NOTE | 2019-04-27 13:50 | Occupational Therapy Eval ---
OT Evaluation-General/PLF Medical Diagnosis Admission Date Apr 26, 2019 at 11:00 Medical Diagnosis: Supratherapeutic Vancomycin, LAURIE Onset Date: Apr 26, 2019 Therapy Diagnosis Therapy Diagnosis: Decreased ADL function. Height/Weight Height (Feet): 5 Height (Inches): 4.00 Weight (Pounds): 309 Weight (Ounces): 14.0 Precautions Precautions/Isolations: Fall Prevention, Standard Precautions Safety Interventions: None Weight Bear Status Weight Bearing Restriction: Weight Bearing/Tolerated Referral Physician: Zay Referral Reason: Activity Tolerance, Self Care, Evaluation/Treatment, Strengthening/ROM Medical History Pertinent Medical History: Atrial Fib, Arthritis, DM, HTN Additional Medical History HTN, cellulitis, HTN, obstructive sleep apnea, ulcers (LE), DMII, lymphedema, myelodysplastic syndrome, anxiety, COPD, asthma, a fib, high cholesterol, art hritis. Current History Pt admits with elevated vancomycin trough and creatinine. Pt was recently hospitalized for cellulitis and osteomylitis. Pt states she was living at home prior to hospitalization earlier this year, came from [facility]. Reviewed History: Yes Social History Home: [place] Pt's home to which she wishes to return to: ramp, walk in shower with bench/ gb's. ADL-Prior Level of Function SCALE: Activities may be completed with or without assistive devices. 0-Lkfjwkwxdg-sxethiu completes the activity by him/herself with no assistance from a helper. 5-Set-up or Clean-up Assistance-helper sets up or cleans up; patient completes activity. [place] assists only prior to or following the activity. 4-Supervision or Touching Assistance-helper provides verbal cues and/or touching/steadying and/or contact guard assistance as patient completes activity. Assistance may be provided throughout the activity or intermittently. 3-Partial/Moderate Assistance-helper does LESS THAN HALF the effort. [place] lifts, holds or supports trunk or limbs, but provides less than half the effort. 2-Substantial/Maximal Assistance-helper does MORE THAN HALF the effort. [place] lifts or holds trunk or limbs and provides more than half the effort. 7-Trbsxylfw-ntahhc does ALL the effort. Patient does none of the effort to complete the activity. Or, the assistance of 2 or more helpers is required for the patient to complete the activity. If activity was not attempted, code reason: 7-Patient Refused. 9-Not Applicable-not attempted and the patient did not perform the activity before the current illness, exacerbation or injury. 10-Not Attempted due to Environmental Limitations-(lack of equipment, weather restraints, etc.). 88-Not Attempted due to Medical Conditions or Safety Concerns. ADL PLOF Comments Pt states she was living at home prior to hospitalization last month. Pt states she was IND with self care with AE, required assist for transportation and IADLs. Pt comes from [facility], pt states she was there 2 days before transferring to hospital, states assist with some ADLs at [facility]. 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 Drive Self: No OT Current Status Subjective Pt seen in recliner chair, states mod pain in R leg. Pt oriented/ alert. Pt provides history with thoroughness. Mental Status/Objective Patient Orientation: Person, Place, Time, Situation, Normal For Age Attachments: Bello Catheter, IV Current Glasses/Contacts: Yes Hearing Aids: No Dentures/Partials: No Hand Dominance: Right Upper Extremity ROM PROM WFL AROM decreased due to weakness. Upper Extremity Coordination WLF BUE Upper Extremity Sensation WFL Upper Extremity Strength Decreased bilaterally. Able to reach ~90* shoulder flexion, unable to maintain. Edema: BLE. non pitting. ADL-Treatment Eating (QC): 6 Oral Hygiene (QC): 5 Shower/Bathe Self (QC): 7 Upper Body Dressing (QC): 7 Lower Body Dressing (QC): 7 On/Off Footwear (QC): 7 Toileting Hygiene (QC): 7 Other Treatments Pt educated on OT role. Pt gives thorough history. Pt denies ADLs as she has shower yesterday and wiped back earlier in day. According to pt, sit to stand utilized for transfers from bed to recliner. Pt states she has thorough exercise routine with theraband and ball- states completes each day during TV. Pt completes LB dressing/ footwear with AE at home. Pt states she wishes to return home rather than [facility]. States pain limiting sit to stands as well as weakness. Pt educated on goals of therapy, agrees to increasing strength, functional mobility, and ADL status. Pt left in room with call light in reach, all needs met. Education OT Patient Education: Modified ADL techniques, Purpose of tx/functional activities, Safety issues Teaching Recipient: Patient Teaching Methods: Demonstration, Discussion Response to Teaching: Verbalize Understanding, Return Demonstration OT Plate Shear Operator Goals Correction Goals Time Frame: May 11, 2019 Eating (QC): 6 Oral Hygiene (QC): 6 Toileting Hygiene (QC): 6 Shower/Bathe Self (QC): 5 Upper Body Dressing (QC): 6 Lower Body Dressing (QC): 4 On/Off Footwear (QC): 6 Additional Goals: 1-Demonstrate ADL Tasks, 2-Verbalize Understanding, 3- ImproveStrength/Yimi 1=Demonstrate adherence to instructed precautions during ADL tasks. 2=Patient will verbalize/demonstrate understanding of assistive devices/modifications for ADL. 3=Patient will improve strength/tolerance for activity to enable patient to perform ADL's. OT Education/Plan Problem List/Assessment Assessment: Decreased Activ Tolerance, Decreased UE Strength, Edema, Impaired I ADL's, Impaired Self-Care Skills, Restricted Funct UE ROM Discharge Recommendations Plan/Recommendations: Continue POC Therapy Discharge Recommendati: Assisted Living Treatment Plan/Plan of Care Treatment,Training & Education: Yes Patient would benefit from OT for education, treatment and training to promote independence in ADL's, mobility, safety and/or upper extremity function for ADL's. Plan of Care: ADL Retraining, Functional Mobility, UE Funct Exercise/Act Treatment Duration: May 11, 2019 Frequency: 5 times per week Estimated Hrs Per Day: .25 hour per day Agreement: Yes Rehab Potential: Fair Time/GCodes Start Time: 13:15 Stop Time: 13:35 Total Time Billed (hr/min): 20 Billed Treatment Time 1, EVM (20) PANFILO PANDEY OTR Apr 27, 2019 13:50
--- NOTE | 2019-04-27 14:03 | NUR ---
THE PT'S NOTES SAYS SHE IS A RESIDENT OF [facility]. I WENT TO HER CHART AND MULLED THE PHYSICIANS ORDER OFF. I THEN WENT AND TALKED TO THE PT TO MAKE SURE THEY HANDLE ALL HER MEDICATIONS. SHE STATES SHE WAS JUST RECENTLY TRANSFERRED TO THE [facility] FROM [facility] IN [place] BUT THE [facility] DOES TAKE CARE OF HER MEDS. I CALLED [facility] TO CONFIRM WHAT PHARMACY I SHOULD PUT ON FILE, I WAS TOLD BLADE OUT OF [facility] [place] [facility]. I UPDATED THAT ON THE PT'S INFORMATION. PLEASE NOTE: ON THE PHYSICIANS ORDERS VANCOMYCIN AND CEFEPIME WERE BOTH LISTED. I CHECKED WITH THE PHARMACIST ON [place] ABOUT INCLUDING THIS ON THE MED REC AND THEY ADVISED AGAINST IT. FOR THAT REASON I LEFT IT OFF THE MED REC.
--- NOTE | 2019-04-27 14:36 | History & Physical-Hospitalist ---
History of Present Illness HPI/Chief Complaint Felipa Vasquez is a 74-year-old female who presented with elevated creatinine. She was recently admitted with osteomyelitis and discharged on IV antibiotics to [facility]. She was then transferred to [facility] for ongoing cares. Her vancomycin trough was drawn and revealed an elevated level. Evaluation of her kidney function revealed an acute kidney injury. She reports no complaints or concerns at this time. She denies any fevers or chills. She denies any chest pain or shortness of breath. She denies any abdominal pain, nausea, vomiting, or diarrhea. She denies any dysuria. She denies any worsening rash. She has a right lower extremity wound which is unchanged. Source: patient Exam Limitations: no limitations Date Seen 04/27/19 Time Seen by a Provider: 09:45 Attending Physician Susu Cabrera MD PCP Liu Roblero MD Referring Physician Date of Admission Apr 26, 2019 at 11:00 Home Medications & Allergies Home Medications Reviewed patient Home Medication Reconciliation performed by pharmacy medication reconciliations durability technician and/or nursing. Patients Allergies have been reviewed. Allergies Allergies Coded Allergies NSAIDS (Non-Steroidal Anti-Inflamma (Verified Allergy, Severe, BLOOD IN URINE, 06/23/18) celecoxib (Unverified Allergy, Severe, BLOOD IN URINE, 06/23/18) penicillin G (Verified Allergy, Unknown, HAS RECEIVED ANCEF W/O ISSUE, 10/13/15) Past Hdmxcyc-Redbrf-Tpyodp Hx Past Med/Social Hx: Reviewed Nursing Past Med/Soc Hx Patient Social History Alcohol Use: Denies Use Recreational Drug Use: No 2nd Hand Smoke Exposure: No Recent Foreign Travel: No Contact w/other who traveled: No Recent Hopitalizations: Yes (REHAB) Immunizations Up To Date Tetanus Booster (TDap): Unknown Date of Pneumonia Vaccine: Dec 23, 2012 Date of Influenza Vaccine: Dec 23, 2018 Seasonal Allergies Seasonal Allergies: No Past Medical History Respiratory: Asthma, Sleep Apnea Currently Using CPAP: Yes Currently Using BIPAP: No Cardiac: Atrial Fibrillation, High Cholesterol, Hypertension : No Sexually Transmitted Disease: No HIV/AIDS: No Female Reproductive Disorders: Denies Genitourinary: Bladder Infection Gastrointestinal: Hiatal Hernia Musculoskeletal: Arthritis Endocrine: Diabetes, Non-Insulin dep Hearing Impairment: Denies Cancer: Melanoma Did You Recieve Any Treatments: No History of Blood Disorders: No Adverse Reaction to Blood Hernández: No Family History Dementia 19 MOTHER Diabetes mellitus G8 SISTER Myocardial infarction 19 FATHER Neoplasm G8 SISTER Heart Disease a-fib in siblings Review of Systems Constitutional: no symptoms reported EENTM: no symptoms reported Respiratory: no symptoms reported Cardiovascular: no symptoms reported Gastrointestinal: no symptoms reported Genitourinary: no symptoms reported Musculoskeletal: no symptoms reported Skin: no symptoms reported Psychiatric/Neurological: No Symptoms Reported Physical Exam Physical Exam Vital Signs Vital Signs - First Documented 04/26/19 09:43 Temp 36.8 Pulse 74 Resp 17 B/P (MAP) 143/66 (91) Pulse Ox 98 O2 Delivery Room Air Capillary Refill : Less Than 3 SecondsLess Than 3 Seconds Height, Weight, BMI Height: 5'4.00" Weight: 309lbs. 14.0oz. 140.052360fz; 53.74 BMI Method:Stated General Appearance: No Apparent Distress, Obese HEENT: PERRL/EOMI, Pharynx Normal Neck: Normal Inspection, Supple Respiratory: Lungs Clear, Normal Breath Sounds, No Respiratory Distress Cardiovascular: Regular Rate, Rhythm, No Edema, No Murmur Gastrointestinal: Normal Bowel Sounds, Non Tender, Soft Extremity: Normal Inspection, Non Tender, Pedal Edema, Other (Right lower extremity wound) Neurologic/Psychiatric: Alert, Oriented x3, No Motor/Sensory Deficits, Normal Mood/Affect Results Results/Procedures Labs Laboratory Tests 04/26/19 09:50 04/27/19 05:30 Patient resulted labs reviewed. Assessment/Plan Admission Diagnosis Acute kidney injury superimposed on chronic kidney disease Admission Status: Inpatient Order (span 2 midnights) Reason for Inpatient Admission: Acute kidney injury requiring IV fluids and ongoing monitoring Assessment and Plan Acute kidney injury superimposed on chronic kidney disease Vancomycin toxicity Osteomyelitis Vancomycin trough 79 on arrival, repeat 54 this morning Vancomycin currently being held, pharmacy following Continue cefepime for osteomyelitis Creatinine elevated at 3.2, stable, baseline around 1 Continue IV fluids Hypokalemia Hypomagnesemia Potassium 3, magnesium 1.5 Continue to monitor and replace as needed Debility Consult PT/OT Type II diabetes mellitus Sliding scale insulin Paroxysmal atrial fibrillation Continue amiodarone and Eliquis Diagnosis/Problems Diagnosis/Problems (1) Vancomycin poisoning Status: Acute Qualifiers: Encounter type: initial encounter (2) Acute kidney injury (nontraumatic) Status: Acute Clinical Quality Measures DVT/VTE Risk/Contraindication: Risk Factor Score Per Nursin RFS Level Per Nursing on Admit: 3=High JE WOODARD MD Apr 27, 2019 14:36
--- NOTE | 2019-04-27 21:00 | NUR ---
NOTIFIED DR. MCKEON OF PATIENT'S BLOOD PRESSURE BEING 185/78 WITH A PULSE OF 78. PATIENT IS ONLY TAKING METOPROLOL 5MG DAILY AT 0900. THIS RN ASKED FOR PRN BLOOD PRESSURE MEDICATION. NEW ORDERS RECEIVED AT THIS TIME.
[2019-04-27] MEDS ORDERED: cloNIDine 0.1 MG (CATAPRES) TAB PO PRN (21:15)
[2019-04-27] MEDS ORDERED: LOPERAMIDE 2 MG (IMODIUM) TABLET PO PRN (21:15)
[2019-04-27] MEDS ORDERED: ALPRAZolam 0.25 MG (XANAX) TAB PO PRN (21:15)
[2019-04-27] MEDS ORDERED: hydrALAZINE (APRESOLINE) 25 MG TAB PO PRN (21:15)
[2019-04-27] MEDS ORDERED: CALCIUM CARBONATE 500 MG (TUMS) TAB.CHEW PO PRN (21:15)
[2019-04-27] MEDS ORDERED: MELATONIN 3 MG TABLET PO PRN (21:15)
[2019-04-27] MEDS ORDERED: amLODIPine 5 MG (NORVASC) TAB PO ONE (21:15)
[2019-04-27] MEDS ORDERED: DOCUSATE SODIUM 100 MG (COLACE) CAP PO PRN (21:15)
[2019-04-27] MEDS ORDERED: HYDROcodone/APAP 5 MG/325 MG (LORTAB) TAB PO PRN (21:15)
[2019-04-27] MEDS ORDERED: diphenhydrAMINE 25 MG TAB (BENADRYL) PO PRN (21:15)
[2019-04-28 04:00] VITALS: BP 158/71
[2019-04-28] MEDS: inSUlin ASPART (NovoLOG) 1 UNIT/0.01 ML (CHARGE PER UNIT) SC SCH ×3 (05:21→16:01)
[2019-04-28 06:21] LABS: CALCIUM 7.8 MG/DL (8.5-10.1); CREATININE SERUM 3.04 MG/DL (0.60-1.30); MAGNESIUM 1.9 MG/DL (1.6-2.4); POTASSIUM 3.2 MMOL/L (3.6-5.0)
[2019-04-28 06:26] LABS: VANCOMYCIN,TROUGH 49.3 UG/ML (10.0-20.0)
[2019-04-28] MEDS: NS IV 1000 ML 1,000 ML IV SCH (07:35)
[2019-04-28 08:00] VITALS: BP 167/71
[2019-04-28] MEDS ORDERED: KCL 20 MEQ TAB (K-DUR) PO NR (08:00)
[2019-04-28] MEDS: CEFEPIME 1,000 MG/SWFI 10 ML IV PUSH IV SCH ×2 (08:47)
[2019-04-28] MEDS ORDERED: amLODIPine 5 MG (NORVASC) TAB PO SCH (09:00)
--- NOTE | 2019-04-28 10:15 | Physical Therapy Progress Note ---
Therapy Progress Note Patient stated she was nauseous and any movement made it worse and because of that she could not participate in therapy today. Informed her we will check back tomorrow. 1 visit REF KWASI DISLA PT Apr 28, 2019 10:14
[2019-04-28] MEDS: RT-ALBUTEROL/IPRATROPIUM 3 ML (DUONEB) VIAL INH SCH ×2 (10:17→14:32)
[2019-04-28] MEDS: meTOproloL SUCCINATE 50 MG (TOPROL XL) TAB PO SCH (11:20)
[2019-04-28] MEDS: APIXABAN 5 MG (ELIQUIS) TABLET PO SCH (11:20)
[2019-04-28] MEDS ORDERED: VANC1.5P12 IV ×2 (11:46→11:50)
[2019-04-28] MEDS ORDERED: CEFE1FRO IV ×2 (11:47→11:50)
--- NOTE | 2019-04-28 11:47 | Occ Therapy Progress Note ---
Therapy Progress Note Pt refused therapy due to nausea/vomiting. Will attempt tomorrow. 1 visit-Refusal TEA HAWKINS Apr 28, 2019 11:47
[2019-04-28 12:00] VITALS: BP 178/78
--- NOTE | 2019-04-28 12:22 | Discharge Summary ---
Discharge Summary Reconcile Patient Problems Problems Reviewed?: Yes Hospital Course Hospital Course Date of Admission: Apr 26, 2019 at 11:00 Admission Diagnosis : Acute kidney injury Family Physician/Provider: Liu Roblero MD Date of Discharge: 04/28/19 Discharge Diagnosis: Acute kidney injury due to vancomycin toxicity Hospital Course: Felipa Vasquez is a 74-year-old female with a right lower extremity osteomyelitis currently on long-term vancomycin and cefepime who presented with an acute kidney injury due to vancomycin toxicity. She was monitored and given IV fluids and her kidney function stabilized and mildly improved. Her vancomycin levels remain elevated. She is scheduled to have a repeat BMP and vancomycin levels drawn Saturday. She was discharged to [facility]. Their pharmacy will monitor her vancomycin levels, kidney function, and dose the vancomycin. Labs and Pending Lab Test: Laboratory Tests 04/27/19 15:54: Glucometer 145H 04/27/19 20:20: Glucometer 149H 04/28/19 05:17: Glucometer 85 04/28/19 05:45: Sodium Level 139, Potassium Level 3.2L, Chloride Level 107, Carbon Dioxide Level 21, Anion Gap 11, Blood Urea Nitrogen 45H, Creatinine 3.04H, Estimat Glomerular Filtration Rate 15, BUN/Creatinine Ratio 15, Glucose Level 96, Calcium Level 7.8L, Magnesium Level 1.9, Vancomycin Level Trough 49.3*H 04/28/19 11:37: Glucometer 85 Home Meds Active Cefepime 1 gm Injection (Cefepime HCl/Dextrose, Iso-Osm) 1 Gm/50 Ml Froz.piggy 1 Gm IV DAILY 30 Days Vancomycin 1.5 Gram/250 ml-D5w (Vancomycin HCl/D5w) 1.5 Gm/250 Ml Plast..bag 1.5 Gm IV UD 30 Days HOLD UNTIL FURTHER NOTICE Reported Pantoprazole Sodium 40 Mg Tablet.dr 40 Mg PO DAILY Miralax (Polyethylene Glycol 3350) 17 Gm Powd.pack 17 Gm PO BID PRN Shelly-Lanta Liquid (Mag Hydrox/Aluminum Hyd/Simeth) 355 Ml Oral.susp 30 Ml PO Q4H PRN Glucose Gel (Dextrose) 38 Gm Gel..gram. 38 Gm PO PRN PRN Bisacodyl 10 Mg Supp.rect 10 Mg RC Q6H PRN Iprat-Albut 0.5-3(2.5) mg/3 ml (Ipratropium/Albuterol Sulfate) 3 Ml Ampul.neb 3 Ml IH Q2H PRN Tylenol (Acetaminophen) 325 Mg Tablet 650 Mg PO Q6H PRN Senna Lax (Sennosides) 8.6 Mg Tablet 8.6 Mg PO BID Metoprolol Succinate 50 Mg Tab.er.24h 50 Mg PO DAILY HOLD AND NOTIFY MD FOR SBP LESS THAN 100 OR DBP LESS THEN 50 Humalog (Insulin Lispro) 100 Unit/1 Ml Vial Units SQ QID USE PER SLIDING SCALE: BS 70-140=0 UNITS 141-180=2 UNITS 181-220=4 UNTIS 221-260=6 UNITS 261-300=8 UN ITS 301-340=10 UNITS 341-380=12 UNITS 281-400=14 UNITS IF BS OVER 400 NOTIFY Tylenol (Acetaminophen) 325 Mg Tablet 650 Mg PO Q8H Docusate Sodium 100 Mg Capsule 100 Mg PO BID Symbicort 80-4.5 Mcg Inhaler (Budesonide/Formoterol Fumarate) 10.2 Gm Hfa.aer.ad 1 Puff IH BID Furosemide 20 Mg Tablet 60 Mg PO DAILY HOLD FOR SBP LESS THEN 100 Amiodarone HCl 200 Mg Tablet 200 Mg PO DAILY Tramadol HCl 50 Mg Tablet 50 Mg PO Q8H PRN Eliquis (Apixaban) 5 Mg Tablet 5 Mg PO Q12H Atorvastatin Calcium 40 Mg Tablet 40 Mg PO DAILY Montelukast Sodium 10 Mg Tablet 10 Mg PO DAILY Instructions to Patient/Family Assessment/Instructions Take medications as prescribed. Follow up with her next [facility] rounds. Follow Up Appt.: Next [facility] rounds Skilled NF Admit to: [facility] Certification ([facility]) I certify that SNF services are required to be given on an inpatient basis because of the above named patient's need for care home care on a continuing basis for the conditions(s) for which he/she was receiving inpatient hospital services prior to his/her transfer to the SNF. Longterm Facility Order: Nursing Services, Post Secondary Professional-Evaluate & Treat, Physical Therapy-Evaluate & Treat, Wound Care-Eval/Treat Oxygen Delivery Method: Room Air Discharge Diet: No Restrictions Daily Activity as Tolerated: Yes Resuscitation Status: Full Code Je Zay Apr 28, 2019 12:19 Discharge Physical Exam General: Alert, Oriented X3, Cooperative, No Acute Distress HEENT: Atraumatic, PERRLA, EOMI, Mucous Memb Moist/[place] Lungs: Clear to Auscultation, Normal Air Movement Heart: Regular Rate, Normal S1, Normal S2, No Murmurs Abdomen: Normal Bowel Sounds, Soft, No Tenderness Extremities: Other (Right lower extremity wound, lymphedema) Skin: Other (Right lower extremity wound) Neuro: Normal Speech Psych/Mental Status: Mental Status NL, Mood NL JE WOODARD MD Apr 28, 2019 12:22
--- NOTE | 2019-04-28 12:43 | NUR ---
CM FINALIZED DISCHARGE PLANNING: Patient is returning to [facility] skilled today. 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 Primary care nurse is aware. Once wound care orders are clarified for the discharge orders then I will visit with the patient on the finalized POC. The patient is aware that she is dismissing today.
[2019-04-28] MEDS: AMIODARONE 200 MG (CORDARONE) TAB PO SCH (13:10)
[2019-04-28 15:52] VITALS: BP 179/69
[2019-04-28 16:00] VITALS: BP 179/69
== END 2019-04-28 16:22 | DRG 683 ==
LOC: EDUNIT# 09:43 → ER 09:44 → 4TH 11:00
PROVIDERS: ADMIT Family Medicine; ATTEND Family Medicine
DX: N17.9 Acute kidney failure, unspecified (principal); Z68.43 Body mass index [BMI] 50.0-59.9, adult; T36.8X5A Adverse effect of other systemic antibiotics, initial encounter; I12.9 Hypertensive chronic kidney disease with stage 1 through stage 4 chronic kidney disease, or unspecified chronic kidney disease; N18.9 Chronic kidney disease, unspecified; E11.9 Type 2 diabetes mellitus without complications; J44.9 Chronic obstructive pulmonary disease, unspecified; I48.0 Paroxysmal atrial fibrillation; E66.01 Morbid (severe) obesity due to excess calories; I87.2 Venous insufficiency (chronic) (peripheral); I89.0 Lymphedema, not elsewhere classified; G47.30 Sleep apnea, unspecified; E78.00 Pure hypercholesterolemia, unspecified; G47.33 Obstructive sleep apnea (adult) (pediatric); D46.9 Myelodysplastic syndrome, unspecified; F41.9 Anxiety disorder, unspecified; D64.9 Anemia, unspecified; M19.91 Primary osteoarthritis, unspecified site; K44.9 Diaphragmatic hernia without obstruction or gangrene; E87.6 Hypokalemia; E83.42 Hypomagnesemia; R53.81 Other malaise; Z79.01 Long term (current) use of anticoagulants
CPT/HCPCS: 36415; 51702; 71045; 80048; 80053; 80202; 81000; 82962; 83735; 85025; 86141; 94640; 94664; 94760; 96360

== ENCOUNTER → 2019-05-07 | Outpatient (CLI) | payer MEDICARE, OTHER ==
[~2019-05-07] MED LIST changes: +ACET325T38 PO; +BISA10SU8 RC; +BUDE10.22 IH; +DEXT38GE12 PO; +DOCU100C37 PO; +FURO20TA4 PO; +INSU100V SQ; +IPRA3AMP31 IH; +PANT40TA3 PO; +POLY17PO6 PO; +SNN187T PO; +VANC1.5P12 IV; +[UNRECOGNIZED DRUG - CODE] PO
== END ==
LOC: WOUNDCARE 10:56
PROVIDERS: ATTEND Orthopaedic Surgery Hand Surgery
DX: E11.622 Type 2 diabetes mellitus with other skin ulcer (principal); L97.212 Non-pressure chronic ulcer of right calf with fat layer exposed; I87.331 Chronic venous hypertension (idiopathic) with ulcer and inflammation of right lower extremity; E66.01 Morbid (severe) obesity due to excess calories; I89.0 Lymphedema, not elsewhere classified; M86.161 Other acute osteomyelitis, right tibia and fibula
CPT/HCPCS: 11042

== ENCOUNTER 2019-05-08 13:45 | Emergency (ER) | payer MEDICARE ==
[~2019-05-08] VITALS: Ht 162 cm; Wt 136.8 kg
--- NOTE | 2019-05-08 14:29 | ED General ---
General Chief Complaint: General Problems/Pain Stated Complaint: ABNORMAL LABS Source of Information: Patient Exam Limitations: No Limitations History of Present Illness Date Seen by Provider: May 08, 2019 Time Seen by Provider: 14:26 Initial Comments To ER from [facility] with reports of abnormal outpatient labs. She has been receiving vancomycin since March for osteomyelitis right lower extremity. Spent some time at [facility] in [place], then was discharged back to [facility]. . She had an outpatient vancomycin trough of between 70 and 80 on 04/26/19. Her creatinine was 3, she was admitted and hydrated, creatinine settle that around 3. Outpatient labs were drawn today, creatinine of 5 and BUN the 60s. Severity: Moderate Associated Systoms: Denies Symptoms Allergies and Home Medications Allergies Coded Allergies: NSAIDS (Non-Steroidal Anti-Inflamma (Verified Allergy, Severe, BLOOD IN URINE, 06/23/18) celecoxib (Unverified Allergy, Severe, BLOOD IN URINE, 06/23/18) penicillin G (Verified Allergy, Unknown, HAS RECEIVED ANCEF W/O ISSUE, 10/13/15) Home Medications Acetaminophen 325 Mg Tablet, 650 MG PO Q8H, (Reported) Acetaminophen 325 Mg Tablet, 650 MG PO Q6H PRN for PAIN-MILD (1-4) OR TEMPATURE, (Reported) Amiodarone HCl 200 Mg Tablet, 200 MG PO DAILY, (Reported) Apixaban 5 Mg Tablet, 5 MG PO Q12H, (Reported) Atorvastatin Calcium 40 Mg Tablet, 40 MG PO DAILY, (Reported) Bisacodyl 10 Mg Supp.rect, 10 MG RC Q6H PRN for CONSTIPATION-4TH LINE, (Reported) Budesonide/Formoterol Fumarate 10.2 Gm Hfa.aer.ad, 1 PUFF IH BID, (Reported) Cefepime HCl/Dextrose, Iso-Osm 1 Gm/50 Ml Froz.piggy, 1 GM IV DAILY Prescribed by: JE WOODARD on 04/28/19 1150 Dextrose 38 Gm Gel..gram., 38 GM PO PRN PRN for HYPOGLYCEMIA, (Reported) Docusate Sodium 100 Mg Capsule, 100 MG PO BID, (Reported) Furosemide 20 Mg Tablet, 60 MG PO DAILY, (Reported) HOLD FOR SBP LESS THEN 100 Insulin Lispro 100 Unit/1 Ml Vial, UNITS SQ QID, (Reported) USE PER SLIDING SCALE: BS 70-140=0 UNITS 141-180=2 UNITS 181-220=4 UNTIS 221-260=6 UNITS 261-300=8 UN ITS 301-340=10 UNITS 341-380=12 UNITS 281-400=14 UNITS IF BS OVER 400 NOTIFY MD Ipratropium/Albuterol Sulfate 3 Ml Ampul.neb, 3 ML IH Q2H PRN for SHORTNESS OF BREATH, (Reported) Mag Hydrox/Aluminum Hyd/Simeth 355 Ml Oral.susp, 30 ML PO Q4H PRN for LASHON GESTION, (Reported) Metoprolol Succinate 50 Mg Tab.er.24h, 50 MG PO DAILY, (Reported) HOLD AND NOTIFY MD FOR SBP LESS THAN 100 OR DBP LESS THEN 50 Montelukast Sodium 10 Mg Tablet, 10 MG PO DAILY, (Reported) Pantoprazole Sodium 40 Mg Tablet.dr, 40 MG PO DAILY, (Reported) Polyethylene Glycol 3350 17 Gm Powd.pack, 17 GM PO BID PRN for CONSTIPATION-2ND LINE, (Reported) Sennosides 8.6 Mg Tablet, 8.6 MG PO BID, (Reported) Tramadol HCl 50 Mg Tablet, 50 MG PO Q8H PRN for PAIN-MODERATE, (Reported) Vancomycin HCl/D5w 1.5 Gm/250 Ml Plast..bag, 1.5 GM IV UD HOLD UNTIL FURTHER NOTICE Prescribed by: JE WOODARD on 04/28/19 1150 Patient Home Medication List Home Medication List Reviewed: Yes Review of Systems Review of Systems Constitutional: see HPI; No chills, No fever EENTM: see HPI Respiratory: no symptoms reported; No cough Cardiovascular: no symptoms reported Genitourinary: no symptoms reported Musculoskeletal: no symptoms reported Skin: no symptoms reported Psychiatric/Neurological: No Symptoms Reported Hematologic/Lymphatic: No Symptoms Reported Immunological/Allergic: no symptoms reported Past Pnbzngg-Vtowwf-Mkawxp Hx Patient Social History 2nd Hand Smoke Exposure: No Recent Hopitalizations: Yes (REHAB) Immunizations Up To Date Tetanus Booster (TDap): Unknown Date of Pneumonia Vaccine: Dec 23, 2012 Date of Influenza Vaccine: Dec 23, 2018 Seasonal Allergies Seasonal Allergies: No Past Medical History Respiratory: Yes Asthma, Sleep Apnea, COPD Currently Using CPAP: Yes Currently Using BIPAP: No Cardiac: Yes Atrial Fibrillation, High Cholesterol, Hypertension Neurological: No Female Reproductive Disorders: Denies Sexually Transmitted Disease: No HIV/AIDS: No Genitourinary: Yes Bladder Infection Gastrointestinal: Yes Hiatal Hernia Musculoskeletal: Yes Arthritis Endocrine: Yes Diabetes, Non-Insulin dep HEENT: No Hearing Impairment: Denies Cancer: No Melanoma Did You Recieve Any Treatments: No Psychosocial: No Integumentary: Yes (ULCERS, osteomyelitis) Blood Disorders: No Adverse Reaction/Blood Tranf: No Family Medical History Dementia 19 MOTHER Diabetes mellitus G8 SISTER Myocardial infarction 19 FATHER Neoplasm G8 SISTER Heart Disease a-fib in siblings Physical Exam Vital Signs Vital Signs - First Documented 05/08/19 13:54 Temp 36.7 Pulse 98 Resp 20 B/P (MAP) 136/73 (94) Pulse Ox 96 O2 Delivery Room Air Capillary Refill : Height, Weight, BMI Height: 5'4.00" Weight: 309lbs. 14.0oz. 140.104802vq; 53.74 BMI Method:Stated General Appearance: No Apparent Distress, Obese Eyes: Bilateral Eye Normal Inspection, Bilateral Eye PERRL, Bilateral Eye EOMI HEENT: PERRL/EOMI, TMs Normal Neck: Full Range of Motion, Normal Inspection Respiratory: Normal Breath Sounds, No Accessory Muscle Use, No Respiratory Distress Cardiovascular: Regular Rate, Rhythm, Normal Peripheral Pulses Gastrointestinal: Non Tender, Soft Extremity: Normal Capillary Refill, Normal Inspection, Other (dressing in place with chronic discoloration and scaling of legs to bilateral lower extremities. There is a dressing in place over the wound on the right lower extremity. This was debrided yesterday by wound care here.) Neurologic/Psychiatric: Alert, Oriented x3 Skin: Normal Color, Warm/Dry Progress/Results/Core Measures Suspected Sepsis SIRS Temperature: Pulse: Respiratory Rate: Laboratory Tests 05/08/19 14:50: White Blood Count 8.5 Blood Pressure / Mean: Laboratory Tests 05/08/19 14:50: Creatinine 5.56H, Platelet Count 352, Total Bilirubin 0.3 Results/Orders Lab Results Laboratory Tests Test 05/08/19 14:50 Range/Units White Blood Count 8.5 4.3-11.0 10^3/uL Red Blood Count 2.82 L 4.35-5.85 10^6/uL Hemoglobin 8.2 L 11.5-16.0 G/DL Hematocrit 26 L 35-52 % Mean Corpuscular Volume 93 80-99 FL Mean Corpuscular Hemoglobin 29 25-34 PG Mean Corpuscular Hemoglobin Concent 31 L 32-36 G/DL Red Cell Distribution Width 14.0 10.0-14.5 % Platelet Count 352 130-400 10^3/uL Mean Platelet Volume 8.3 7.4-10.4 FL Neutrophils (%) (Auto) 79 H 42-75 % Lymphocytes (%) (Auto) 11 L 12-44 % Monocytes (%) (Auto) 8 0-12 % Eosinophils (%) (Auto) 2 0-10 % Basophils (%) (Auto) 0 0-10 % Neutrophils # (Auto) 6.7 1.8-7.8 X 10^3 Lymphocytes # (Auto) 0.9 L 1.0-4.0 X 10^3 Monocytes # (Auto) 0.7 0.0-1.0 X 10^3 Eosinophils # (Auto) 0.2 0.0-0.3 10^3/uL Basophils # (Auto) 0.0 0.0-0.1 10^3/uL Sodium Level 135 135-145 MMOL/L Potassium Level 3.4 L 3.6-5.0 MMOL/L Chloride Level 97 L 98-107 MMOL/L Carbon Dioxide Level 23 21-32 MMOL/L Anion Gap 15 H 5-14 MMOL/L Blood Urea Nitrogen 62 H 7-18 MG/DL Creatinine 5.56 H 0.60-1.30 MG/DL Estimat Glomerular Filtration Rate 7 BUN/Creatinine Ratio 11 Glucose Level 114 H 70-105 MG/DL Calcium Level 8.6 8.5-10.1 MG/DL Corrected Calcium 9.6 8.5-10.1 MG/DL Total Bilirubin 0.3 0.1-1.0 MG/DL Aspartate Amino Transf (AST/SGOT) 14 5-34 U/L Alanine Aminotransferase (ALT/SGPT) 8 0-55 U/L Alkaline Phosphatase 101 40-136 U/L Total Protein 6.6 6.4-8.2 GM/DL Albumin 2.8 L 3.2-4.5 GM/DL My Orders Orders - SHWETA FENG APRN Cbc With Automated Diff (05/08/19 14:00) Comprehensive Metabolic Panel (05/08/19 14:00) Ekg Tracing (05/08/19 14:00) Fentanyl Injection (Sublimaze Injection (05/08/19 16:51) Medications Given in ED Current Medications Medications Dose Ordered Sig/Cande Route Start Time Stop Time Status Last Admin Dose Admin Fentanyl Citrate 100 mcg STK-MED ONCE .ROUTE 05/08/19 16:51 05/08/19 16:56 DC 05/08/19 17:01 100 MCG Vital Signs/I&O 05/08/19 13:54 Temp 36.7 Pulse 98 Resp 20 B/P (MAP) 136/73 (94) Pulse Ox 96 O2 Delivery Room Air Capillary Refill : Departure Impression Primary Impression: Acute on chronic renal failure Disposition: SHT-TRM HOSP Condition: Stable Departure-Patient Inst. Referrals: JOHN MCCARTNEY MD (PCP/Family) Primary Care Physician SHWETA FENG APRN May 08, 2019 14:29
[2019-05-08 14:56] LABS: BASOPHILS % (AUTO) 0 % (0-10); EOSINOPHILS # (AUTO) 0.2 10^3/uL (0.0-0.3); EOSINOPHILS % (AUTO) 2 % (0-10); HEMATOCRIT 26 % (35-52); HEMOGLOBIN 8.2 G/DL (11.5-16.0); LYMPHOCYTES # (AUTO) 0.9 X 10^3 (1.0-4.0); LYMPHOCYTES % (AUTO) 11 % (12-44); MEAN CORPUSCULAR HEMOGLOBIN 29 PG (25-34); MEAN CORPUSCULAR HGB CONC 31 G/DL (32-36); MEAN CORPUSCULAR VOLUME 93 FL (80-99); MEAN PLATELET VOLUME 8.3 FL (7.4-10.4); MONOCYTES # (AUTO) 0.7 X 10^3 (0.0-1.0); MONOCYTES % (AUTO) 8 % (0-12); NEUTROPHILS # (AUTO) 6.7 X 10^3 (1.8-7.8); NEUTROPHILS % (AUTO) 79 % (42-75); PLATELET COUNT 352 10^3/uL (130-400); WHITE BLOOD COUNT 8.5 10^3/uL (4.3-11.0)
[2019-05-08 15:14] LABS: ALBUMIN 2.8 GM/DL (3.2-4.5); BILIRUBIN,TOTAL 0.3 MG/DL (0.1-1.0); CALCIUM 8.6 MG/DL (8.5-10.1); CREATININE SERUM 5.56 MG/DL (0.60-1.30); POTASSIUM 3.4 MMOL/L (3.6-5.0); TOTAL PROTEIN 6.6 GM/DL (6.4-8.2)
[2019-05-08] MEDS ORDERED: fentaNYL INJECTION 100 MCG/2 ML AMP ONE ×2 (16:51→18:52)
[2019-05-08 18:13] VITALS: BP 148/63
[2019-05-08] MEDS ORDERED: fentaNYL INJECTION 100 MCG/2 ML AMP IVP ONE ×2 (19:00→19:15)
== END 2019-05-08 18:13 | disposition short-term general hospital (02) ==
LOC: EDUNIT# 13:45 → ER 13:46
DX: N17.9 Acute kidney failure, unspecified (principal); E11.22 Type 2 diabetes mellitus with diabetic chronic kidney disease; N18.9 Chronic kidney disease, unspecified; I12.9 Hypertensive chronic kidney disease with stage 1 through stage 4 chronic kidney disease, or unspecified chronic kidney disease; E78.00 Pure hypercholesterolemia, unspecified; I48.91 Unspecified atrial fibrillation; J44.9 Chronic obstructive pulmonary disease, unspecified; Z85.820 Personal history of malignant melanoma of skin; Z79.4 Long term (current) use of insulin; Z79.01 Long term (current) use of anticoagulants; Z82.49 Family history of ischemic heart disease and other diseases of the circulatory system
CPT/HCPCS: 36415; 80053; 85025; 93005; 96374; 96376

== ENCOUNTER → 2019-05-28 | Outpatient (CLI) | payer MEDICARE ==
[~2019-05-28] MED LIST changes: -MONT10TA24 PO; +MONT10TA26 PO
== END ==
LOC: WOUNDCARE 12:24
PROVIDERS: ATTEND Surgery
DX: E11.622 Type 2 diabetes mellitus with other skin ulcer (principal); I87.331 Chronic venous hypertension (idiopathic) with ulcer and inflammation of right lower extremity; L97.212 Non-pressure chronic ulcer of right calf with fat layer exposed; E66.01 Morbid (severe) obesity due to excess calories; I89.0 Lymphedema, not elsewhere classified; M86.161 Other acute osteomyelitis, right tibia and fibula
CPT/HCPCS: 99213

== ENCOUNTER 2019-06-03 10:10 | Outpatient (RCR) | payer MEDICARE ==
[~2019-06-03 10:10] MED LIST changes: +DARBEPOETIN 10 MCG/0.4 ML ARANESP IJ SCH
[2019-06-03 10:46] LABS: BASOPHILS # (AUTO) 0.1 10^3/uL (0.0-0.1); BASOPHILS % (AUTO) 1 % (0-10); EOSINOPHILS # (AUTO) 0.2 10^3/uL (0.0-0.3); EOSINOPHILS % (AUTO) 2 % (0-10); HEMATOCRIT 29 % (35-52); HEMOGLOBIN 9.2 G/DL (11.5-16.0); LYMPHOCYTES # (AUTO) 0.7 X 10^3 (1.0-4.0); LYMPHOCYTES % (AUTO) 7 % (12-44); MEAN CORPUSCULAR HEMOGLOBIN 29 PG (25-34); MEAN CORPUSCULAR HGB CONC 31 G/DL (32-36); MEAN CORPUSCULAR VOLUME 91 FL (80-99); MEAN PLATELET VOLUME 9.1 FL (7.4-10.4); MONOCYTES # (AUTO) 0.8 X 10^3 (0.0-1.0); MONOCYTES % (AUTO) 7 % (0-12); NEUTROPHILS # (AUTO) 9.2 X 10^3 (1.8-7.8); NEUTROPHILS % (AUTO) 84 % (42-75); PLATELET COUNT 282 10^3/uL (130-400); RED CELL DISTRIBUTION WIDTH 15.2 % (10.0-14.5)
[2019-06-03] MEDS ORDERED: DARBEPOETIN 10 MCG/0.4 ML ARANESP IJ SCH (10:52)
== END 2019-09-01 | disposition home or self-care (01) ==
LOC: ONC 10:10
PROVIDERS: ATTEND Internal Medicine Hematology & Oncology
DX: D50.9 Iron deficiency anemia, unspecified (principal); D63.1 Anemia in chronic kidney disease; N18.3 Chronic kidney disease, stage 3 (moderate); Z85.820 Personal history of malignant melanoma of skin; I10 Essential (primary) hypertension; E78.2 Mixed hyperlipidemia; Z82.49 Family history of ischemic heart disease and other diseases of the circulatory system; Z79.84 Long term (current) use of oral hypoglycemic drugs; Z79.899 Other long term (current) drug therapy; E11.622 Type 2 diabetes mellitus with other skin ulcer; I87.331 Chronic venous hypertension (idiopathic) with ulcer and inflammation of right lower extremity; L97.212 Non-pressure chronic ulcer of right calf with fat layer exposed; E66.01 Morbid (severe) obesity due to excess calories; Z68.43 Body mass index [BMI] 50.0-59.9, adult
CPT/HCPCS: 36591; 85025; 96372